=== PATIENT | female | born 1955 | race Caucasian/White ===

== ENCOUNTER 2016-10-02 16:26 | Day surgery (SDC) | payer OTHER ==
[~2016-10-02] VITALS: Ht 170.2 cm; Wt 86.3 kg
[2016-10-02] VITALS (9 sets, daily range): BP systolic 105–123; BP diastolic 58–72
[~2016-10-02 16:26] MED LIST: HEParin (CATH LAB) 2,000 ML IV ONE; HEParin 1000 UNIT/ML (10ML VIAL) FOR BOLUS ONE; LIDOCAINE 1% INJ 20 ML (XYLOCAINE) VIAL ONE; MIDAZOLAM 5 MG/5 ML (VERSED) VIAL ONE; NITROGLYCERIN DRIP 25 MG/D5W 250 ML IV ONE; NS IV 1000 ML 1,000 ML ONE; diphenhydrAMINE 50 MG/ML INJ (BENADRYL) ONE; fentaNYL INJECTION 100 MCG/2 ML AMP ONE
[2016-10-02] MEDS ORDERED: EPTIFIBATIDE BOLUS 20 ML IV ONE (16:27)
--- OUTSIDE RECORDS SUMMARY | 2016-10-02 16:30 | XMS REPORT | Continuity of Care Document ---
Author Author [facility] Organization [facility] Address Unknown Phone Unavailable Allergies Active Description Code Type Severity Reaction Onset Reported/Identified Relationship to Patient Clinical Status Yes Tylenol Drug Allergy N/A N/A 11/09/2010 Yes Tylenol Drug Allergy 11/09/2010 Yes lisinopril 5 mg tablet Drug Allergy N/A N/A 09/07/2011 Yes lisinopril 5 mg tablet Drug Allergy 09/07/2011 Yes metformin 500 mg Tablet Drug Allergy N/A N/A 03/06/2012 Yes metformin 500 mg Tablet Drug Allergy 03/06/2012 Medications Problems Date Dx Coded Attending Type Code Diagnosis Diagnosed By 11/09/2010 250.02 Diabetes Ii Uncontrolled 11/09/2010 V18.0 FAM HX DIABETES MELLITUS 11/09/2010 250.02 Diabetes Ii Uncontrolled 11/09/2010 V18.0 FAM HX DIABETES MELLITUS 11/09/2010 250.02 Diabetes Ii Uncontrolled 11/09/2010 V18.0 FAM HX DIABETES MELLITUS 11/09/2010 HAWA CORREA DO 250.02 Diabetes Ii Uncontrolled 11/09/2010 HAWA CORREA DO V18.0 FAM HX DIABETES MELLITUS 11/09/2010 HAWA CORREA DO 250.02 Diabetes Ii Uncontrolled 11/09/2010 HAWA CORREA DO V18.0 FAM HX DIABETES MELLITUS 11/09/2010 HAWA CORREA DO 250.02 Diabetes Ii Uncontrolled 11/09/2010 HAWA CORREA DO V18.0 FAM HX DIABETES MELLITUS 11/22/2010 786.52 Chest Wall Pain 11/22/2010 V68.1 ISSUE OF REPEAT PRESCRIPTIONS 11/22/2010 786.52 Chest Wall Pain 11/22/2010 V68.1 ISSUE OF REPEAT PRESCRIPTIONS 11/22/2010 786.52 Chest Wall Pain 11/22/2010 V68.1 ISSUE OF REPEAT PRESCRIPTIONS 11/22/2010 HAWA CORREA DO 786.52 Chest Wall Pain 11/22/2010 HAWA CORREA DO V68.1 ISSUE OF REPEAT PRESCRIPTIONS 11/22/2010 CORREA DO, HAWA K 786.52 Chest Wall Pain 11/22/2010 CORREA DO, HAWA K V68.1 ISSUE OF REPEAT PRESCRIPTIONS 11/22/2010 CORREA DO, HAWA K 786.52 Chest Wall Pain 11/22/2010 CORREA DO, HAWA K V68.1 ISSUE OF REPEAT PRESCRIPTIONS 12/21/2010 250.00 DIABETES MELLITUS TYPE 2 12/21/2010 250.00 DIABETES MELLITUS TYPE 2 12/21/2010 250.00 DIABETES MELLITUS TYPE 2 12/21/2010 CORREA DO, HAWA K 250.00 DIABETES MELLITUS TYPE 2 12/21/2010 CORREA DO, HAWA K 250.00 DIABETES MELLITUS TYPE 2 12/21/2010 CORREA DO, HAWA K 250.00 DIABETES MELLITUS TYPE 2 03/06/2012 272.4 DYSLIPIDEMIA 03/06/2012 586 RENAL FAILURE UNSPECIFIED 03/06/2012 599.0 Urinary Tract Infection 03/06/2012 V70.0 ROUTINE GENERAL MEDICAL EXAMINATION AT A HEALTH CARE FACILITY 03/06/2012 272.4 DYSLIPIDEMIA 03/06/2012 586 RENAL FAILURE UNSPECIFIED 03/06/2012 599.0 Urinary Tract Infection 03/06/2012 V70.0 ROUTINE GENERAL MEDICAL EXAMINATION AT A HEALTH CARE FACILITY 03/06/2012 272.4 DYSLIPIDEMIA 03/06/2012 586 RENAL FAILURE UNSPECIFIED 03/06/2012 599.0 Urinary Tract Infection 03/06/2012 V70.0 ROUTINE GENERAL MEDICAL EXAMINATION AT A HEALTH CARE FACILITY 03/06/2012 CORREA DO, HAWA K 272.4 DYSLIPIDEMIA 03/06/2012 CORREA DO, HAWA K 586 RENAL FAILURE UNSPECIFIED 03/06/2012 CORREA DO, HAWA K 599.0 Urinary Tract Infection 03/06/2012 CORREA DO, HAWA K V70.0 ROUTINE GENERAL MEDICAL EXAMINATION AT A HEALTH CARE FACILITY 03/06/2012 CORREA DO, HAWA K 272.4 DYSLIPIDEMIA 03/06/2012 CORREA DO, HAWA K 586 RENAL FAILURE UNSPECIFIED 03/06/2012 CORREA DO, HAWA K 599.0 Urinary Tract Infection 03/06/2012 CORREA DO, HAWA K V70.0 ROUTINE GENERAL MEDICAL EXAMINATION AT A HEALTH CARE FACILITY 03/06/2012 CORREA DO, HAWA K 272.4 DYSLIPIDEMIA 03/06/2012 CORREA DO, HAWA K 586 RENAL FAILURE UNSPECIFIED 03/06/2012 CORREA DO, HAWA K 599.0 Urinary Tract Infection 03/06/2012 HAWA CORREA DO V70.0 ROUTINE GENERAL MEDICAL EXAMINATION AT A HEALTH CARE FACILITY 12/03/2012 461.9 SINUSITIS ACUTE 12/03/2012 719.40 PAIN IN JOINT SITE UNSPECIFIED 12/03/2012 461.9 SINUSITIS ACUTE 12/03/2012 719.40 PAIN IN JOINT SITE UNSPECIFIED 12/03/2012 HAWA CORREA DO K 461.9 SINUSITIS ACUTE 12/03/2012 HAWA CORREA DO K 719.40 PAIN IN JOINT SITE UNSPECIFIED 12/03/2012 HAWA CORREA DO K 461.9 SINUSITIS ACUTE 12/03/2012 HAWA CORREA DO K 719.40 PAIN IN JOINT SITE UNSPECIFIED 10/02/2016 ANGI BO Ot 461.9 ACUTE SINUSITIS NOS Procedures Code [place] [address] ROUTINE VENIPUNCTURE 06/02/2012 29791 A1C (IN-HOUSE) 88905 MICRO ALBUMIN-IN HOUSE 06/02/2012 84906 CMP 06/02/2012 86318 LIPID PANEL 06/02 [id number] GFR CALC (RESULT ONLY) 06/02/2012 17579 ROUTINE VENIPUNCTURE 12/03/2012 54590 A1C (IN-HOUSE) 01014 CMP 12/03/2012 25611 LIPID PANEL 12/03 [id number] GFR CALC (RESULT ONLY) 12/03/[address] SINUS W/O CONTRAST 12/15/2012 70188 ROUTINE VENIPUNCTURE 08/04/2013 02257 MICRO ALBUMIN-IN HOUSE 08/04/2013 42116 A1C (IN-HOUSE) [id number] GFR CALC (RESULT ONLY) 08/04/2013 01081 CMP 08/04/2013 11777 LIPID PANEL 08/04 58979 MICROALBUMIN 01/2014 13444 ROUTINE VENIPUNCTURE 02/08/2014 37773 A1C (IN-HOUSE) [id number] GFR CALC (RESULT ONLY) 02/08/2014 01645 CMP 02/08/2014 42462 LIPID PANEL 02/08 Results Encounters ACCT No. Visit Date/Time Discharge Status Pt. Type Provider Facility Loc./Unit Complaint [id number] 12/19/2012 09:34:00 2012 23:59:59 CLS Outpatient LAMONTE ZAMORANO, ANGI Godinez [facility] RAD CHRONIC SINUSITIS [id number] 10/02/2016 16:26:00 ACT Outpatient JEANNETTE MOSS FACC, EMMANUEL ULLOA CCDS [facility] CATH STEMI
--- OUTSIDE RECORDS SUMMARY | 2016-10-02 16:30 | XMS REPORT | Continuity of Care Document ---
Author Author [facility] Organization [facility] Address Unknown Phone Unavailable Allergies Active [...] Procedures Code Description [place] [address] ROUTINE VENIPUNCTURE 06/02/2012 49304 A1C (IN-HOUSE) 41640 MICRO ALBUMIN-IN HOUSE 06/02/2012 78085 CMP 06/02/2012 52825 LIPID PANEL 06/02 [id number] GFR CALC (RESULT ONLY) 06/02/2012 78939 ROUTINE VENIPUNCTURE 12/03/2012 96638 A1C (IN-HOUSE) 49990 CMP 12/03/2012 57457 LIPID PANEL 12/03 [id number] GFR CALC (RESULT ONLY) 12/03/[address] SINUS W/O CONTRAST 12/15/2012 91543 ROUTINE VENIPUNCTURE 08/04/2013 45195 MICRO ALBUMIN-IN HOUSE 08/04/2013 27386 A1C (IN-HOUSE) [id number] GFR CALC (RESULT ONLY) 08/04/2013 24887 CMP 08/04/2013 32380 LIPID PANEL 08/04 71399 MICROALBUMIN 01/2014 78870 ROUTINE VENIPUNCTURE 02/08/2014 36555 A1C (IN-HOUSE) [id number] GFR CALC (RESULT ONLY) 02/08/2014 79296 CMP 02/08/2014 24630 LIPID PANEL 02/08 Results Encounters ACCT No. Visit Date/Time Discharge Status Pt. Type Provider Facility Loc./Unit Complaint [id number] 12/19/2012 09:34:00 2012 23:59:59 CLS Outpatient LAMONTE ZAMORANO, ANGI Godinez [facility] RAD CHRONIC SINUSITIS [id number] 10/02/2016 16:26:00 ACT Outpatient JEANNETTE MOSS FACC, EMMANUEL ULLOA CCDS [facility] CATH STEMI
[2016-10-02] MEDS ORDERED: NS IV 1000 ML 1,000 ML IV SCH (17:15)
[2016-10-02] MEDS ORDERED: PATIENT MAY USE OWN MEDS, ALL PO SCH (17:45)
--- NOTE | 2016-10-02 17:45 | Cardiac Procedure Note-CS/ASA ---
Pre-Procedure Note Pre-Op Procedure Note H&P Reviewed The H&P was reviewed, patient examined and no changes noted. Date H&P Reviewed: Oct 02, 2016 Time H&P Reviewed: 16:50 Conscious Sedation Pre-Proced Time Reviewed: 16:50 ASA Class: 3 Airway Mallampati Classification: (jena appropriate class) I. II. III, IV Lungs Heart ASA score ASA 1: a normal healthy patient ASA 2: a patient with a mild systemic disease (mid diabetes, controlled hypertension, obesity ASA 3: a patient with a severe systemic disease that limits activity (angina , COPD, prior Myocardial infarction) ASA 4: a patient with an incapacitating disease that is a constant threat to life (CHF, renal failure) ASA 5: a moribund patient not expected to survive 24 hrs. (ruptured aneurysm) ASA 6: a declared brain patient whose organs are being harvested. For emergent operations, add the letter E after the classification Grade 3 Sedation Plan: Analgesia, Amnesia, Plan communicated to team members, Discussed options with patient/fam, Discussed risks with patient/fam Note The patient is an appropriate candidate to undergo the planned procedure, sedation, and anesthesia. The patient immediately re-assessed prior to indication. EMMANUEL MACHADO MD FACP FAC CCDS Oct 02, 2016 17:45
[2016-10-02] MEDS ORDERED: CLOPIDOGREL 300 MG (PLAVIX) TABLET PO ONE (17:47)
[2016-10-02] MEDS: ATORVASTATIN 40 MG (LIPITOR) TABLET PO SCH (23:27)
[2016-10-02] MEDS: IBUPROFEN 600 MG (MOTRIN) TAB PO SCH (23:27)
[2016-10-02] MEDS: inSUlin (REGULAR) HUMAN 1 UNIT/0.01 ML (CHARGE PER UNIT) SC SCH (23:44)
[2016-10-03] VITALS (7 sets, daily range): BP systolic 101–117; BP diastolic 59–77
[2016-10-03 04:02] LABS: MEAN PLATELET VOLUME 11.1 FL (7.4-10.4); RED BLOOD COUNT 4.19 10^6/uL (4.35-5.85); RED CELL DISTRIBUTION WIDTH 14.1 % (10.0-14.5); WHITE BLOOD COUNT 9.7 10^3/uL (4.3-11.0)
[2016-10-03 04:21] LABS: CALCIUM 9.3 MG/DL (8.5-10.1); CREATININE SERUM 0.95 MG/DL (0.60-1.30)
[2016-10-03] MEDS: IBUPROFEN 600 MG (MOTRIN) TAB PO SCH ×3 (06:00→21:49)
[2016-10-03] MEDS: inSUlin (REGULAR) HUMAN 1 UNIT/0.01 ML (CHARGE PER UNIT) SC SCH ×4 (07:03→21:00)
[2016-10-03] MEDS: NS IV 1000 ML 1,000 ML IV SCH ×4 (07:04→23:45)
[2016-10-03] MEDS ORDERED: FLU TRIvalent (5 YOA+) 2016-17 (AFLURIA) 0.5 ML IM ONE (07:15)
[2016-10-03] MEDS ORDERED: OMG1KC PO ×2 (08:16)
[2016-10-03] MEDS ORDERED: MULT-35 PO ×2 (08:16)
--- NOTE | 2016-10-03 08:37 | Progress Note-Cardiology ---
Cardiology SOAP Progress Note Subjective: Denies cp or palp or syncope Objective: I&O/Vital Signs Vital Sign - Last 12Hours 10/02/16 10/02/16 10/02/16 10/03/16 21:00 22:00 23:00 00:00 Pulse 63 62 61 60 Resp 21 8 13 21 B/P 119/67 108/66 105/58 108/59 Pulse Ox 90 92 O2 Delivery Room Air Room Air Room Air Room Air 10/03/16 10/03/16 10/03/16 10/03/16 01:00 01:00 04:00 08:01 Temp 97.1 98.4 Pulse 60 60 59 58 Resp 20 18 16 B/P 117/69 110/69 109/65 Pulse Ox 96 94 O2 Delivery Room Air Room Air Room Air Weight (Pounds): 185 Weight (Ounces): 8.0 Weight (Calculated Kilograms): 84.728518 Groin site without hematoma: Yes Bruising: mild bruising Constitutional: AAO x 3 well-developed well-nourished Respiratory: No accessory muscle use, other (fair bilateral air entry) Cardiovascular: regular rate-rhythm S1 and S2 systolic murmur (faint RJ at card base) Gastrointestional: No tender, softNo guarding, No rebound, audible bowel sounds Extremities: No clubbing, No cyanosis, No significant edema Neurologic/Psychiatric: oriented x 3 grossly intact power is 5/5 both on sides Skin: No rash on exposed areas, No ulcerations on exposed areas Results/Procedures: Labs Laboratory Tests 10/03/16 03:20: Anion Gap 10, BUN/Creatinine Ratio 16, Blood Urea Nitrogen 15, Calcium Level 9.3 , Carbon Dioxide Level 20L, Chloride Level 109H, Creatinine 0.95, Estimat Glomerular Filtration Rate 60, Glucose Level 102, Hematocrit 38, Hemoglobin 12.6 , Mean Corpuscular Hemoglobin 30, Mean Corpuscular Hemoglobin Concent 33, Mean Corpuscular Volume 91, Mean Platelet Volume 11.1H, Platelet Count 172, Potassium Level 4.0, Red Blood Count 4.19L, Red Cell Distribution Width 14.1, Sodium Level 139, White Blood Count 9.7 Laboratory Tests 10/03/16 03:20 A/P: Assessment: * Ac inf wall STEMI on 10/02/16, treated with RCA stenting (Alpine Xience 3.0 x 20 proximally and 3.0 x 28 in the mid vessel, nonoverlapping); L cors had mod diffuse disease (60% mid LAD and 80% relatively small caliber OM 1), LVEDP was moderately elevated; LVEF was 40% * Ischemic cm (see above) * NSVT shortly post revascularization * Borderline DM II * Chronic tobacco use, from which she has been advised to refrain Plan: * Treat with aspirin, Plavix, statin, beta-gilma and TU-inhib * Med consult for eval for DMII * I again advised her to quit smoking immediately and completely * Echo to getter better eval of LVEF and wall motion * I spent a lot of time with her emphasizing the importance of medication compliance, in particular antiplatelet therapy (aspirin and clopidogrel) post cor stents. She understands and states she will comply * Keep on tele * Have advised her to increase ambulation * Repeat labs in EMMANUEL Urena MD FACP FAC CCDS Oct 03, 2016 08:37
[2016-10-03] MEDS: CLOPIDOGREL 75 MG (PLAVIX) TABLET PO SCH (08:54)
[2016-10-03] MEDS: ASPIRIN E.C. 81 MG (ECOTRIN) TAB PO SCH (08:55)
[2016-10-03] MEDS: lisINopril 5 MG (PRINIVIL) TABLET PO SCH (08:55)
[2016-10-03] MEDS: MAGNESIUM 1 GM/100 ML IVPB 100 ML IV SCH ×2 (09:45→10:48)
--- NOTE | 2016-10-03 12:06 | Consultation-Hospitalist ---
HPI History of Present Illness: HPI/Chief Complaint CC: Chest pain HPI: This is a 61yoWF pt of [facility] last seen in 2011 with hx of H/O, DM but stopped medication since sugar was doing well, that presented to ER with chest pain. 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 Pt currently takes no meds for DM. Pt started on beta blockers. Pt has cough with green sputum. Patient Interview: Pt does not have a PCP. Pt states that she does not take any medication. Dr. Babb discusses establishing pt with PCP or [facility]. Pt previously went to [facility] but hasnt for the past [address] Babb discusses DM with pt. Pt previously took DM medicine, but stopped because she felt that her sugar levels were stabilized. Physical exam stable. Pt smokes, but denies drinking ETOH. Pt works at [employer] in [place], and has done so for the past 4 years. Scribed by Eitan Schmid under the direct supervision of Dr. Babb. Source: patient Date Seen 10/03/16 Attending Physician Kwame Mathew MD Facp Fac Ccds PCP No,Local Physician Referring Physician Date of Admission Home Medications & Allergies Home Medications Reviewed patient Home Medication Reconciliation Form Allergies Coded Allergies: acetaminophen (Unverified Allergy, Unknown, 10/02/16) Past Cizluhw-Vnodeu-Hzrtrr Hx Patient Social History Marrital Status: single Employed/Student: employed ([employer] in [place]) Alcohol Use: Denies Use Recreational Drug Use: No Smoking Status: Current Everyday Smoker Type Used: Cigarettes Physical Abuse Screen: No Sexual Abuse: No Recent Foreign Travel: No Contact w/other who traveled: No Recent Hopitalizations: No Recent Infectious Disease Expo: No Seasonal Allergies Seasonal Allergies: No Surgeries HX Surgeries: No Respiratory Hx Respiratory Disorders: No Cardiovascular Hx Cardiovascular Disorders: Yes Cardiac Disorders: High Cholesterol, Hypertension Neurological Hx Neurological Disorders: No Reproductive System Sexually Transmitted Disease: No HIV/AIDS: No Gastrointestinal Hx Gastrointestinal Disorders: No Musculoskeletal Hx Musculoskeletal Disorders: No Endocrine Hx Endocrine Disorders: Yes Hx Endocrine Disorders: No Endocrine Disorders: Diabetes, Non-Insulin dep HEENT Loss of Vision: Right Hearing Impairment: Hard of Hearing Blood Transfusions Adverse Reaction to a Blood Tr: No Family Medical History Family Hx: Alzheimer's disease 19 FATHER Breast malignancy G8 SISTER COPD (chronic obstructive pulmonary disease) G8 BROTHER Cardiomegaly 19 MOTHER, Onset:46 Cardiovascular disease G8 BROTHER G8 SISTER Diabetes mellitus 19 MOTHER Hypertension 19 MOTHER Myocardial infarction G8 BROTHER ( age 46 ) G8 BROTHER Prostate cancer 19 FATHER Uterine cancer Review of Systems Constitutional: see HPI EENTM: no symptoms reported Respiratory: short of breath Cardiovascular: chest pain Gastrointestinal: no symptoms reported Genitourinary: no symptoms reported Musculoskeletal: no symptoms reported Skin: no symptoms reported Psychiatric/Neurological: No Symptoms Reported All Other Systems Reviewed Negative Unless Noted: Yes Physical Exam Physical Exam Vital Signs Vital Sign - Last 12Hours 10/02/16 10/02/16 10/03/16 18:00 18:15 04:00 Temp 97.1 Pulse 73 Resp 14 B/P 113/65 Pulse Ox 94 O2 Delivery Room Air Capillary Refill : Less Than 3 Seconds General Appearance: No Apparent Distress WD/WN Chronically ill Eyes: Bilateral Eye Normal Inspection, Bilateral Eye PERRL HEENT: PERRL/EOMI Normal ENT Inspection Pharynx Normal Neck: Full Range of Motion Normal Inspection Non Tender Supple Carotid Bruit Respiratory: Chest Non Tender Lungs Clear Normal Breath Sounds No Accessory Muscle Use No Respiratory Distress Cardiovascular: Regular Rate, Rhythm No Edema No Gallop No JVD No Murmur Normal Peripheral Pulses Gastrointestinal: Normal Bowel Sounds No Organomegaly No Pulsatile Mass Non Tender Soft Back: Normal Inspection No CVA Tenderness No Vertebral Tenderness Extremity: Normal Capillary Refill Normal Inspection Normal Range of Motion Non Tender No Calf Tenderness No Pedal Edema Neurologic/Psychiatric: Alert Oriented x3 No Motor/Sensory Deficits Normal Mood/Affect Skin: Normal Color Warm/Dry Lymphatic: No Adenopathy Results Results/Procedures Lab Laboratory Tests 10/03/16 03:20 Assessment/Plan Admission Diagnosis Assessment: Acute inferior wall STEMI RCA stented x2 EF noted at 40% Non-sustained ventricular tachycardia H/O DM non-compliant with meds Assessment and Plan Plan: SW consult Monitor closely due to cardiac status Re-establish with [facility]. Clinical Quality Measures DVT/VTE Risk/Contraindication: Risk Factor Score Per Nursin RFS Level Per Nursing on Admit: 4+=Very High ISMAEL BABB DO Oct 03, 2016 12:06
[2016-10-03] MEDS: ATORVASTATIN 40 MG (LIPITOR) TABLET PO SCH (21:49)
[2016-10-04 00:06] VITALS: BP 94/50
[2016-10-04 04:00] VITALS: BP 104/61
[2016-10-04] MEDS: IBUPROFEN 600 MG (MOTRIN) TAB PO SCH (05:18)
[2016-10-04 05:47] LABS: BASOPHILS % (AUTO) 0 % (0-10); EOSINOPHILS # (AUTO) 0.2 10^3/uL (0.0-0.3); EOSINOPHILS % (AUTO) 2 % (0-10); LYMPHOCYTES # (AUTO) 2.4 X 10^3 (1.0-4.0); LYMPHOCYTES % (AUTO) 26 % (12-44); MEAN CORPUSCULAR HEMOGLOBIN 31 PG (25-34); MEAN CORPUSCULAR HGB CONC 33 G/DL (32-36); MEAN CORPUSCULAR VOLUME 91 FL (80-99); MEAN PLATELET VOLUME 10.7 FL (7.4-10.4); MONOCYTES # (AUTO) 0.5 X 10^3 (0.0-1.0); MONOCYTES % (AUTO) 6 % (0-12); NEUTROPHILS # (AUTO) 6.1 X 10^3 (1.8-7.8); NEUTROPHILS % (AUTO) 67 % (42-75); PLATELET COUNT 154 10^3/uL (130-400); RED BLOOD COUNT 4.26 10^6/uL (4.35-5.85); RED CELL DISTRIBUTION WIDTH 14.4 % (10.0-14.5); WHITE BLOOD COUNT 9.2 10^3/uL (4.3-11.0)
[2016-10-04] MEDS: inSUlin (REGULAR) HUMAN 1 UNIT/0.01 ML (CHARGE PER UNIT) SC SCH ×2 (06:00→11:00)
[2016-10-04 06:10] LABS: ALBUMIN 3.8 G/DL (3.2-4.5); BILIRUBIN,TOTAL 0.4 MG/DL (0.1-1.0); CALCIUM 9.3 MG/DL (8.5-10.1); CREATININE SERUM 1.01 MG/DL (0.60-1.30); MAGNESIUM 2.3 MG/DL (1.8-2.4); POTASSIUM 4.2 MMOL/L (3.6-5.0); TOTAL PROTEIN 6.5 G/DL (6.4-8.2)
[2016-10-04] MEDS: CLOPIDOGREL 75 MG (PLAVIX) TABLET PO SCH (08:51)
[2016-10-04] MEDS: lisINopril 5 MG (PRINIVIL) TABLET PO SCH (08:51)
[2016-10-04] MEDS: ASPIRIN E.C. 81 MG (ECOTRIN) TAB PO SCH (08:51)
[2016-10-04 08:52] VITALS: BP 108/64
--- NOTE | 2016-10-04 10:19 | Progress Note-Cardiology ---
Cardiology SOAP Progress Note Subjective: Sitting up on the side of the bed. No c/o CP, palpitations, syncope, near syncope or LE edema. Objective: I&O/Vital Signs Vital Sign - Last 12Hours 10/04/16 10/04/16 10/04/16 10/04/16 00:06 01:00 04:00 06:52 Temp 98.7 98.1 Pulse 58 54 61 56 Resp 16 16 B/P 94/50 104/61 Pulse Ox 95 94 O2 Delivery Room Air Room Air 10/04/16 08:52 Temp 97.5 Pulse 62 Resp 16 B/P 108/64 Pulse Ox 97 O2 Delivery Room Air Intake and Output 10/04/16 00:00 Intake Total 2700 ml Balance 2700 ml Weight (Pounds): 190 Weight (Ounces): 4.0 Weight (Calculated Kilograms): 86.441709 Side: right Groin site without hematoma: Yes Condition: DP/PT pulses palpable, extremity w/d/p Bruising: mild bruising Constitutional: AAO x 3 well-developed well-nourished Respiratory: No accessory muscle use, lungs clear to auscultation other ( prolonged expiratory phase) Cardiovascular: regular rate-rhythm S1 and S2 systolic murmur (faint RJ at card base) Gastrointestional: No tender, softNo guarding, No rebound, audible bowel sounds Extremities: No clubbing, No cyanosis, No significant edema Neurologic/Psychiatric: oriented x 3 grossly intact power is 5/5 both on sides Skin: No rash on exposed areas, No ulcerations on exposed areas Results/Procedures: Labs Laboratory Tests 10/03/16 10:49: Glucometer 119H 10/03/16 16:12: Glucometer 91 10/03/16 21:48: Glucometer 94 10/04/16 05:24: Alanine Aminotransferase (ALT/SGPT) 56H, Albumin 3.8, Alkaline Phosphatase 131, Anion Gap 9, Aspartate Amino Transf (AST/SGOT) 69H, BUN/Creatinine Ratio 19, Basophils # (Auto) 0.0, Basophils (%) (Auto) 0, Blood Urea Nitrogen 19H, Calcium Level 9.3, Carbon Dioxide Level 21, Chloride Level 110H, Cholesterol Level 193, Creatinine 1.01, Eosinophils # (Auto) 0.2, Eosinophils (%) (Auto) 2, Estimat Glomerular Filtration Rate 56, Glucose Level 96, HDL Cholesterol 43, Hematocrit 39, Hemoglobin 13.0, LDL Cholesterol Direct 131H, Lymphocytes # (Auto ) 2.4, Lymphocytes (%) (Auto) 26, Magnesium Level 2.3, Mean Corpuscular Hemoglobin 31, Mean Corpuscular Hemoglobin Concent 33, Mean Corpuscular Volume 91, Mean Platelet Volume 10.7H, Monocytes # (Auto) 0.5, Monocytes (%) (Auto) 6, Neutrophils # (Auto) 6.1, Neutrophils (%) (Auto) 67, Platelet Count 154, Potassium Level 4.2, Red Blood Count 4.26L, Red Cell Distribution Width 14.4, Sodium Level 140, Total Bilirubin 0.4, Total Protein 6.5, Triglycerides Level 136, VLDL Cholesterol 27, White Blood Count 9.2 A/P: Assessment: * Ac inf wall STEMI on 10/02/16, treated with RCA stenting (Alpine Xience 3.0 x 20 proximally and 3.0 x 28 in the mid vessel, nonoverlapping); L cors had mod diffuse disease (60% mid LAD and 80% relatively small caliber OM 1), LVEDP was moderately elevated; LVEF was 40% * Ischemic cm (see above) * NSVT shortly post revascularization, no recurrence for more than 24 hrs * Borderline DM II * Chronic tobacco use, from which she has been advised to refrain Plan: * Continue aspirin, Plavix, statin, beta-gilma and TU-inhib * Med consult for eval for DMII - we would like to thank Dr. Babb for her assistance * I again advised her to quit smoking immediately and completely * Again discussed the importance of medication compliance, in particular antiplatelet therapy (aspirin and clopidogrel) post cor stents. She understands and states she will comply * OK to discharge home with out pt f/u next week at our office * Discussed with Dr. Babb Physician Assessment Physician Assessment Lungs: clear Cor: reg A&R * As documented in our note above * She wishes to have echo done as outpatient. Currently feels well and wishes to go home * I have again reviewed with the importance of med compliance and answered her questions * I have gone over her CV findings and the rationale of meds and have advised close outpatient f/u for now * I have advised immediate and complete smoking cessation FORREST [employer] [place] [employer] PROFESS[employer] Oct 04, 2016 10:19 EMMANUEL MACHADO MD FACP FAC CCDS Oct 04, 2016 10:40
[2016-10-04] MEDS ORDERED: ASPI-983 PO ×2 (10:23)
[2016-10-04] MEDS ORDERED: METO-270 PO ×2 (10:23)
[2016-10-04] MEDS ORDERED: LISI-556 PO ×2 (10:23)
[2016-10-04] MEDS ORDERED: CLOP75TA28 PO ×2 (10:23)
[2016-10-04] MEDS ORDERED: ATOR40TA PO ×2 (10:23)
--- NOTE | 2016-10-04 10:28 | Discharge Inst-Cardiology ---
Discharge Inst-Cardiac Discharge Medications New Medications: Aspirin (Aspirin EC) 81 Mg Tablet.dr 81 MG PO DAILY #90 Ref 5 TAB Atorvastatin Calcium (Lipitor) 40 Mg Tablet 40 MG PO HS #30 Ref 5 TAB Clopidogrel Bisulfate (Clopidogrel) 75 Mg Tablet 75 MG PO DAILY #90 Ref 3 TAB Lisinopril (Lisinopril) 5 Mg Tablet 2.5 MG PO DAILY #30 Ref 5 TAB Metoprolol Succinate (Metoprolol Succinate) 25 Mg Tab.er.24h 12.5 MG PO DAILY #30 Ref 5 TAB Continued Medications: Multivitamin (Daily Multiple Vitamin) 1 Each Tablet 1 TAB PO DAILY TAB [place] 3 Polyunsat Fatty Acids (Fish Oil 1,000 mg Capsule) 1,000 Mg Cap 2000 MG PO DAILY TAKES 2 (1000MG) CAPSULES CAP New, Converted or Re-Newed RX: Transmitted to Pharmacy Patient Instructions Patient Instructions: Echocardiogram next week as an outpatient Follow up appt next week with FORREST [place] Oct 04, 2016 10:28
--- NOTE | 2016-10-04 10:47 | Cardiology Discharge Summary ---
Diagnosis/Chief Complaint Date of Admission 10/02/16 Date of Discharge 10/04/16 Final/Discharge Diagnosis * Ac inf wall STEMI on 10/02/16, treated with RCA stenting (Alpine Xience 3.0 x 20 proximally and 3.0 x 28 in the mid vessel, nonoverlapping); L cors had mod diffuse disease (60% mid LAD and 80% relatively small caliber OM 1), LVEDP was moderately elevated; LVEF was 40% * Ischemic cm (see above) * NSVT shortly post revascularization (within 24 hours) without any subsequent recurrence * Borderline DM II for which she will follow with her pcp * Chronic tobacco use, from which she has been advised to refrain Chief Complaint/HPI Chief Complaint/HPI Please refer to my history and physical for details of admission Please refer to my progress note of today (10/04/16) for condition at discharge She is currently clinically stable and wishes to go home Lungs: clear Cor: reg I have again reviewed with the importance of med compliance and answered her questions I have gone over her CV findings and the rationale of meds and have advised close outpatient f/u for now I have advised immediate and complete smoking cessation Time spent in interview, exam, answering questions, explaining meds, providing discharge instructions, calling in meds, writing notes: 10:15 am to 10:47 am Discharge Summary Procedures Card cath and cor intervention on 10/02/16 Hospital Course Pending Labs Laboratory Tests 10/04/16 05:24: Alanine Aminotransferase (ALT/SGPT) 56, Albumin 3.8, Alkaline Phosphatase 131, Anion Gap 9, Aspartate Amino Transf (AST/SGOT) 69, BUN/Creatinine Ratio 19, Basophils # (Auto) 0.0, Basophils (%) (Auto) 0, Blood Urea Nitrogen 19, Calcium Level 9.3, Carbon Dioxide Level 21, Chloride Level 110, Cholesterol Level 193, Creatinine 1.01, Eosinophils # (Auto) 0.2, Eosinophils (%) (Auto) 2, Estimat Glomerular Filtration Rate 56, Glucose Level 96, HDL Cholesterol 43, Hematocrit 39, Hemoglobin 13.0, LDL Cholesterol Direct 131, Lymphocytes # (Auto) 2.4, Lymphocytes (%) (Auto) 26, Magnesium Level 2.3, Mean Corpuscular Hemoglobin 31, Mean Corpuscular Hemoglobin Concent 33, Mean Corpuscular Volume 91, Mean Platelet Volume 10.7, Monocytes # (Auto) 0.5, Monocytes (%) (Auto) 6, Neutrophils # (Auto) 6.1, Neutrophils (%) (Auto) 67, Platelet Count 154, Potassium Level 4.2, Red Blood Count 4.26, Red Cell Distribution Width 14.4, Sodium Level 140, Total Bilirubin 0.4, Total Protein 6.5, Triglycerides Level 136, VLDL Cholesterol 27, White Blood Count 9.2 Discussion & Recommendations Follow up appt.: Follow up with Dr Mathew nex week No smoking Dicharge Diet: Cardiac Diet Home Medications Reviewed patient Home Medication Reconciliation Form Discharge Home Medications: Reviewed and agree with Discharge Medication list on patient's Discharge Instruction sheet Clinical Quality Measures DVT/VTE Risk/Contraindication: Risk Factor Score Per Nursin RFS Level Per Nursing on Admit: 4+=Very High EMMANUEL MATHEW MD FACP FAC CCDS Oct 04, 2016 10:47
--- NOTE | 2016-10-04 10:59 | Discharge Summary-Hospitalist ---
Diagnosis/Chief Complaint Date of Admission Date of Discharge Discharge Date: Oct 04, 2016 Admission Diagnosis Assessment: Acute inferior wall STEMI RCA stented x2 EF noted at 40% Non-sustained ventricular tachycardia H/O DM non-compliant with meds Discharge Diagnosis Assessment: Acute inferior wall STEMI RCA stented x2 EF noted at 40% Non-sustained ventricular tachycardia H/O DM non-compliant with meds Smoker Plan: SW consult Monitor closely due to cardiac status Re-establish with [facility]. Reason Hospital Visit/Course CC: Chest pain HPI: This is a 61yoWF pt of [facility] last seen in 2011 with hx of H/O, DM but stopped medication since sugar was doing well, that presented to ER with chest pain. She was found to have acute inferior wall STEMI was taken to medical laboratory technicians, RCA was stented x2 and EF noted at 40%. She did have non-sustained ventricular tachycardia post stent placement so she will be monitored closely today and DCd home. classification clerk: Pt came from [place] yesterday and had stents placed. Pt currently takes no meds for DM. Pt started on beta blockers. Pt has cough with green sputum. Patient Interview: Pt does not have a PCP. Pt states that she does not take any medication. Dr. Babb discusses establishing pt with PCP or [facility]. Pt previously went to [facility] but hasnt for the past [address] Babb discusses DM with pt. Pt previously took DM medicine, but stopped because she felt that her sugar levels were stabilized. Physical exam stable. Pt smokes, but denies drinking ETOH. Pt works at [employer] in [place], and has done so for the past 4 years. Scribed by Eitan Schmid under the direct supervision of Dr. Babb. Notes from 10/04/2016: Chart Review: No fever Vitals stable WBC 9.2 Glucose normal classification clerk: Pt wants to go home, and has fluids on SEP currently. Patient Interview: Pt states that she wishes to go home, and feels stable. Pt has been ambulating. Pt spoke with SW regarding finances for medication. Dr. Babb encourages pt to quit smoking. Pt uses [facility]. Pt states that she is supposed to work tomorrow. no fever, vital signs stable, pleasant, improved Regular rate and rhythm, clear to auscultation bilaterally No edema Plan: Heplock IVF Follow-up with [facility] 10/11/[address] Luis MCKOY assistance with finances for medication Scribed by Eitan Schmid under the direct supervision of Dr. Babb. Discharge Summary Discharge Physical Examination Allergies: Coded Allergies: acetaminophen (Unverified Allergy, Unknown, 10/02/16) Vitals & I&Os Vital Signs Date Time Temp Pulse Resp B/P Pulse Ox O2 Delivery O2 Flow Rate FiO2 10/04/16 08:52 97.5 62 16 108/64 97 Room Air Hospital Course Labs (last 24 hrs) Laboratory Tests 10/03/16 16:12: Glucometer 91 10/03/16 21:48: Glucometer 94 10/04/16 05:24: Alanine Aminotransferase (ALT/SGPT) 56H, Albumin 3.8, Alkaline Phosphatase 131, Anion Gap 9, Aspartate Amino Transf (AST/SGOT) 69H, BUN/Creatinine Ratio 19, Basophils # (Auto) 0.0, Basophils (%) (Auto) 0, Blood Urea Nitrogen 19H, Calcium Level 9.3, Carbon Dioxide Level 21, Chloride Level 110H, Cholesterol Level 193, Creatinine 1.01, Eosinophils # (Auto) 0.2, Eosinophils (%) (Auto) 2, Estimat Glomerular Filtration Rate 56, Glucose Level 96, HDL Cholesterol 43, Hematocrit 39, Hemoglobin 13.0, LDL Cholesterol Direct 131H, Lymphocytes # (Auto ) 2.4, Lymphocytes (%) (Auto) 26, Magnesium Level 2.3, Mean Corpuscular Hemoglobin 31, Mean Corpuscular Hemoglobin Concent 33, Mean Corpuscular Volume 91, Mean Platelet Volume 10.7H, Monocytes # (Auto) 0.5, Monocytes (%) (Auto) 6, Neutrophils # (Auto) 6.1, Neutrophils (%) (Auto) 67, Platelet Count 154, Potassium Level 4.2, Red Blood Count 4.26L, Red Cell Distribution Width 14.4, Sodium Level 140, Total Bilirubin 0.4, Total Protein 6.5, Triglycerides Level 136, VLDL Cholesterol 27, White Blood Count 9.2 10/04/16 10:51: Glucometer 183H Pending Labs Laboratory Tests 10/04/16 05:24: Alanine Aminotransferase (ALT/SGPT) 56, Albumin 3.8, Alkaline Phosphatase 131, Anion Gap 9, Aspartate Amino Transf (AST/SGOT) 69, BUN/Creatinine Ratio 19, Basophils # (Auto) 0.0, Basophils (%) (Auto) 0, Blood Urea Nitrogen 19, Calcium Level 9.3, Carbon Dioxide Level 21, Chloride Level 110, Cholesterol Level 193, Creatinine 1.01, Eosinophils # (Auto) 0.2, Eosinophils (%) (Auto) 2, Estimat Glomerular Filtration Rate 56, Glucose Level 96, HDL Cholesterol 43, Hematocrit 39, Hemoglobin 13.0, LDL Cholesterol Direct 131, Lymphocytes # (Auto) 2.4, Lymphocytes (%) (Auto) 26, Magnesium Level 2.3, Mean Corpuscular Hemoglobin 31, Mean Corpuscular Hemoglobin Concent 33, Mean Corpuscular Volume 91, Mean Platelet Volume 10.7, Monocytes # (Auto) 0.5, Monocytes (%) (Auto) 6, Neutrophils # (Auto) 6.1, Neutrophils (%) (Auto) 67, Platelet Count 154, Potassium Level 4.2, Red Blood Count 4.26, Red Cell Distribution Width 14.4, Sodium Level 140, Total Bilirubin 0.4, Total Protein 6.5, Triglycerides Level 136, VLDL Cholesterol 27, White Blood Count 9.2 10/04/16 10:51: Glucometer 183 Discharge Home Medications: Active Scripts Active Aspirin EC (Aspirin) 81 Mg Tablet.dr 81 Mg PO DAILY Lisinopril 5 Mg Tablet 2.5 Mg PO DAILY Metoprolol Succinate 25 Mg Tab.er.24h 12.5 Mg PO DAILY Lipitor (Atorvastatin Calcium) 40 Mg Tablet 40 Mg PO HS Clopidogrel (Clopidogrel Bisulfate) 75 Mg Tablet 75 Mg PO DAILY Reported Fish Oil 1,000 mg Capsule ([place] 3 Polyunsat Fatty Acids) 1,000 Mg Cap 2,000 Mg PO DAILY TAKES 2 (1000MG) CAPSULES Daily Multiple Vitamin (Multivitamin) 1 Each Tablet 1 Tab PO DAILY Instructions to patient/family Please see electonic discharge instructions given to patient. Clinical Quality Measures DVT/VTE Risk/Contraindication: Risk Factor Score Per Nursin RFS Level Per Nursing on Admit: 4+=Very High ISMAEL BABB DO Oct 04, 2016 10:59
[2016-10-04 12:47] VITALS: BP 95/57
--- NOTE | 2016-10-24 13:18 | CARDIAC CATHETERIZATION ---
PROCEDURE PHYSICIAN: EMMANUEL MACHADO CARDIAC CATHETERIZATION AND CORONARY INTERVENTION REPORT: DATE OF PROCEDURE: 10/02/2016 Ximena William is a 61-year-old lady who presented with acute inferior wall ST elevation myocardial infarction. Urgent cardiac catheterization and coronary intervention was carried out after having obtained an informed consent. PROCEDURE: She was brought to the cardiac catheterization laboratory. The right groin was prepared and draped in usual sterile fashion. 1% lidocaine was used for local anesthesia. Modified Seldinger technique was used to advance a 6-Armenian sheath in the right femoral artery. A 6-Armenian JL4 catheter was used for left coronary angiography. A 6-Armenian JR4 guide catheter was used for angiography of the right coronary artery. PERCUTANEOUS INTERVENTION TO THE RIGHT CORONARY ARTERY: Following completion of the diagnostic procedure, we carried out percutaneous intervention to the right coronary artery which was exhibiting 99% stenosis in its mid distal portion with RAY 0 to 1 distal flow. We advanced a ChoICE floppy wire across the lesion and the tip was placed in distal vessel. We first carried out balloon angioplasty which reduced the 99% stenosis to approximately 70% stenosis. We then proceeded with stenting of the lesion with Alpine Xience 3.0 x 28 mm stent, which reduced the stenosis from initially 99% to 0% residual following deployment of the stent. Subsequently, we proceeded with the stenting of the proximal right coronary artery which was exhibiting 70 to 80% stenosis. We used another Alpine Xience 3.0 x 20 mm stent and this was carefully positioned to cover the entire lesion without overlapping the distal stent. Following stent deployment, there was 0% residual stenosis at the site of 70 to 80% stenosis in the proximal right coronary artery. She tolerated the procedure well. Angioplasty equipment was removed. We then proceeded with left heart catheterization and left ventricular angiography with a 6-Armenian pigtail catheter. The pigtail catheter was then pulled back and removed. Angiography of the right femoral artery was carried out through the sheath. Mynx was used to achieve hemostasis. LEFT VENTRICULAR ANGIOGRAPHY: Left ventricular angiography showed posterobasal severe hypokinesis and diaphragmatic moderate hypokinesis. Left ventricular ejection fraction was approximately 40%. There did not appear to be significant mitral regurgitation. CORONARY ANGIOGRAPHY: The left main coronary artery did not exhibit significant disease. The left anterior descending artery has diffuse, moderate disease including 60% stenosis in the midportion that involved the first diagonal branch, as well. The left circumflex artery had diffuse, moderate disease. There was 80% stenosis of a relatively small caliber first obtuse marginal branch. The right coronary artery was the culprit artery and had 99% stenosis in its mid to distal portion to which successful stenting was carried out utilizing overlapping nonoverlapping Alpine Xience stents; the distal stent 3 x 28 mm and the proximal stent 3.0 x 20 mm. CONCLUSIONS: 1. Acute inferior wall myocardial infarction treated with primary angioplasty and stenting of a 99% stenosis in the mid to distal right coronary artery with nonoverlapping Alpine Xience 3.0 x 20 mm stent proximally and 3.0 x 28 mm stent in the mid vessel. The left main coronary does not exhibit significant obstructive disease. The left anterior descending artery has diffuse, moderate disease including 50% mid vessel stenosis that involves the ostia and proximal portion of the first diagonal branch. The left circumflex artery has diffuse, moderate disease and has 80% stenosis in a relatively small caliber first obtuse marginal branch. 2. Elevated left ventricular end diastolic pressure. 3. Ischemic cardiomyopathy with posterobasal and diaphragmatic hypokinesis and left ventricular ejection fraction of 40%. 4. No significant mitral regurgitation. Job ID: [id number] Dictated Date: 10/23/2016 18:15:56 Meat Washer Date: 10/24/2016 13:04:14 / florentino
== END 2016-10-04 13:20 | disposition home or self-care (01) ==
LOC: CATH 16:26 → ICU 20:37 → 4TH 10-04 02:00 → CATH 10-04 13:20
PROVIDERS: ATTEND Internal Medicine Cardiovascular Disease
DX: I21.19 ST elevation (STEMI) myocardial infarction involving other coronary artery of inferior wall (principal); I25.10 Atherosclerotic heart disease of native coronary artery without angina pectoris; I25.5 Ischemic cardiomyopathy; I47.2 Ventricular tachycardia; E11.9 Type 2 diabetes mellitus without complications; Z91.19 Patient's noncompliance with other medical treatment and regimen; Z72.0 Tobacco use
CPT/HCPCS: 36415; 80048; 80053; 80061; 82962; 83735; 85025; 85027; 93005; 93458

== ENCOUNTER → 2016-10-08 | Outpatient (CLI) | payer OTHER ==
[~2016-10-08] MED LIST changes: +ASPI-983 PO; +ATOR40TA PO; +CLOP75TA28 PO; -HEParin (CATH LAB) 2,000 ML IV ONE; -HEParin 1000 UNIT/ML (10ML VIAL) FOR BOLUS ONE; -LIDOCAINE 1% INJ 20 ML (XYLOCAINE) VIAL ONE; +LISI-556 PO; +METO-270 PO; -MIDAZOLAM 5 MG/5 ML (VERSED) VIAL ONE; +MULT-35 PO; -NITROGLYCERIN DRIP 25 MG/D5W 250 ML IV ONE; -NS IV 1000 ML 1,000 ML ONE; +OMG1KC PO; -diphenhydrAMINE 50 MG/ML INJ (BENADRYL) ONE; -fentaNYL INJECTION 100 MCG/2 ML AMP ONE
--- OUTSIDE RECORDS SUMMARY | 2016-10-08 13:35 | XMS REPORT | Continuity of Care Document ---
Author Author [facility] Organization [facility] Address Unknown Phone Unavailable Care Team Providers Care Perforator Name Role Phone NO, LOCAL PHYSICIAN PCP Unavailable Insurance Providers Payer Name Policy Number Subscriber Name Relationship Unknown Ximena Dye 18 Self / Same As Patient Problems Active Problems Medical Problem Onset Date Status Acute ST elevation myocardial infarction (STEMI) involving right coronary artery Unknown Acute Medications Current Home Medications Medication Dose Units Route Directions Days/Qty Instructions Start Date Multivitamin 1 Each 1 Tab Oral Daily 10/03/16 [place] 3 Polyunsat Fatty Acids 1,000 Mg 2,000 Mg Oral Daily TAKES 2 ( 1000MG) CAPSULES 10/03/16 Clopidogrel Bisulfate 75 Mg 75 Mg Oral Daily 90 10/04/16 Atorvastatin Calcium 40 Mg 40 Mg Oral Bedtime 30 10/04/16 Metoprolol Succinate 25 Mg 12.5 Mg Oral Daily 30 10/04/16 Lisinopril 5 Mg 2.5 Mg Oral Daily 30 10/04/16 Aspirin 81 Mg 81 Mg Oral Daily 90 10/04/16 Social History Social History Problem Response Recorded Date/Time Alcohol Use Denies Use 10/03/2016 6:28am Recreational Drug Use No 10/03/2016 6:28am Recent Foreign Travel No 10/03/2016 6:41am Recent Infectious Disease Exposure No 10/03/2016 6:41am Sexually Transmitted Disease No 10/03/2016 6:28am HIV/AIDS No 10/03/2016 6:28am Smoking Status Current Everyday Smoker 10/03/2016 6:34am Type Used Cigarettes 10/04/2016 1:31pm Recent Hopitalizations No 10/03/2016 6:28am Sexually Transmitted Disease No 10/03/2016 6:28am Query Response Start Date Stop Date Smoking Status Current Everyday Smoker Hospital Discharge Instructions Patient Instructions Physician Instructions New, Converted or Re-Newed RX: Transmitted to Pharmacy Patient Instructions: Echocardiogram next week as an outpatient Follow up appt next week with Dr. Mathew Care Plan Patient Instructions:: Echocardiogram next week as an outpatientFollow up appt next week with Dr. Mathew Plan of Care Discharge Date 10/04/16 1:20pm Instructions/Education Provided CARDIAC CATH DISCHARGE INSTRUC Prescriptions See Medication Section Functional Status Query Response Date Recorded Patient Orientation Person Place Time Situation Normal For Age October 04, 2016 1:31pm Comprehension Ability Understands Concepts October 04, 2016 8:00am Allergies, Adverse Reactions, Alerts Allergen Type Severity Reaction Status Last Updated Acetaminophen Allergy Unknown Active 10/02/16 Immunizations Name Given Type FLU TRIvalent 5 years - Adult 10/03/16 Administered Vital Signs Acute Vital Signs Vital Response Date/Time Temperature (Fahrenheit) 98.0 degrees F (97.6 - 99.5) 10/04/2016 12:47pm Temperature (Calculated Celsius) 36.52460 degrees C (36.4 - 37.5) 10/04/2016 12:47pm Temperature Source Tympanic 10/04/2016 12:47pm Pulse Rate (adult) 70 bpm (60 - 90) 10/04/2016 12:47pm Respiratory Rate 16 bpm (12 - 24) 10/04/2016 12:47pm O2 Sat by Pulse Oximetry 97 % (88 - 100) 10/04/2016 12:47pm Blood Pressure 95/57 mm Hg 10/04/2016 12:47pm Blood Pressure Mean 70 mm Hg 10/04/2016 12:47pm Pain Numeric Pain Scale 0-No Pain 10/04/2016 12:47pm Pain Intensity 0 10/03/2016 9:49pm Height (Feet) 5 feet 10/03/2016 6:39am Height (Inches) 7.00 inches 10/03/2016 6:39am Height (Calculated Centimeters) 170.727811 cm 10/03/2016 6:39am Weight (Pounds) 190 pounds 10/04/2016 6:36am Weight (Ounces) 4.0 oz 10/04/2016 6:36am Weight (Calculated Grams) 37465.949 gm 10/04/2016 6:36am Weight (Calculated Kilograms) 86.993827 kilograms 10/04/2016 6:36am Calculated BMI 29.1 10/03/2016 6:39am Capillary Refill Capillary Refill Less Than 3 Seconds 10/02/2016 7:00pm Results Laboratory Results Test Name Result Units Flags Reference Collection Date/Time Result Date/ Time Comments White Blood Count 9.2 10^3/uL 4.3-11.0 10/04/2016 5:am 10/04/2016 5: 58am Red Blood Count 4.26 10^6/uL L 4.35-5.85 10/04/2016 5:10/04/2016 5: 58am Hemoglobin 13.0 G/DL 11.5-16.0 10/04/2016 5:10/04/2016 5:58am Hematocrit 39 % 35-52 10/04/2016 5:10/04/2016 5:58am Mean Corpuscular Volume 91 FL 80-99 10/04/2016 5:10/04/2016 5: 58am Mean Corpuscular Hemoglobin 31 PG 25-34 10/04/2016 5:10/04/2016 5: 58am Mean Corpuscular Hemoglobin Concent 33 G/DL 32-36 10/04/2016 5:03/2017 5:58am Red Cell Distribution Width 14.4 % 10.0-14.5 10/04/2016 5:2016 5:58am Platelet Count 154 10^3/uL 130-400 10/04/2016 5:10/04/2016 5:58am Mean Platelet Volume 10.7 FL H 7.4-10.4 10/04/2016 5:10/04/2016 5: 58am Neutrophils (%) (Auto) 67 % 42-75 10/04/2016 5:10/04/2016 5:58am Lymphocytes (%) (Auto) 26 % 12-44 10/04/2016 5:10/04/2016 5:58am Monocytes (%) (Auto) 6 % 0-12 10/04/2016 5:10/04/2016 5:58am Eosinophils (%) (Auto) 2 % 0-10 10/04/2016 5:10/04/2016 5:58am Basophils (%) (Auto) 0 % 0-10 10/04/2016 5:10/04/2016 5:58am Neutrophils # (Auto) 6.1 X 10^3 1.8-7.8 10/04/2016 5:10/04/2016 5: 58am Lymphocytes # (Auto) 2.4 X 10^3 1.0-4.0 10/04/2016 5:10/04/2016 5: 58am Monocytes # (Auto) 0.5 X 10^3 0.0-1.0 10/04/2016 5:10/04/2016 5: 58am Eosinophils # (Auto) 0.2 10^3/uL 0.0-0.3 10/04/2016 5:10/04/2016 5 :58am Basophils # (Auto) 0.0 10^3/uL 0.0-0.1 10/04/2016 5:10/04/2016 5: 58am Sodium Level 140 MMOL/L 135-145 10/04/2016 5:10/04/2016 6:29am Potassium Level 4.2 MMOL/L 3.6-5.0 10/04/2016 5:10/04/2016 6:29am Chloride Level 110 MMOL/L H 98-107 10/04/2016 5:10/04/2016 6:29am Carbon Dioxide Level 21 MMOL/L 21-32 10/04/2016 5:10/04/2016 6: 29am Anion Gap 9 MMOL/L 5-14 10/04/2016 5:10/04/2016 6:29am Blood Urea Nitrogen 19 MG/DL H 7-18 10/04/2016 5:10/04/2016 6:29am Creatinine 1.01 MG/DL 0.60-1.30 10/04/2016 5:10/04/2016 6:29am BUN/Creatinine Ratio 19 10/04/2016 5:10/04/2016 6:29am Estimat Glomerular Filtration Rate 56 10/04/2016 5:10/04/2016 6:29am GFR INTERPRETIVE DATA UNITS FOR ESTIMATED GFR (eGFR): mL/min/1.73 M2 REFERENCE RANGE FOR ESTIMATED GFR (eGFR) eGFR NORMAL eGFR >60 MODERATELY DECREASED eGFR 30-59 SEVERLY DECREASED eGFR 15-29 KIDNEY FAILURE <15 (OR DIALYSIS) Glucose Level 96 MG/DL 70-105 10/04/2016 5:10/04/2016 6:29am Glucometer 183 MG/DL H 70-110 10/04/2016 10:51am 10/04/2016 10:58am Calcium Level 9.3 MG/DL 8.5-10.1 10/04/2016 5:10/04/2016 6:29am Magnesium Level 2.3 MG/DL 1.8-2.4 10/04/2016 5:10/04/2016 6:29am Total Bilirubin 0.4 MG/DL 0.1-1.0 10/04/2016 5:10/04/2016 6:29am Alkaline Phosphatase 131 U/L 40-136 10/04/2016 5:10/04/2016 6: 29am Aspartate Amino Transf (AST/SGOT) 69 U/L H 5-34 10/04/2016 5:2016 6:29am Alanine Aminotransferase (ALT/SGPT) 56 U/L H 0-55 10/04/2016 5:10/04 6:29am Total Protein 6.5 G/DL 6.4-8.2 10/04/2016 5:10/04/2016 6:29am Albumin 3.8 G/DL 3.2-4.5 10/04/2016 5:10/04/2016 6:29am Triglycerides Level 136 MG/DL <150 10/04/2016 5:10/04/2016 6:29am Cholesterol Level 193 MG/DL < 200 10/04/2016 5:10/04/2016 6:29am HDL Cholesterol 43 MG/DL 40-60 10/04/2016 5:10/04/2016 6:29am LDL Cholesterol Direct 131 MG/DL H 1-129 10/04/2016 5:10/04/2016 6: 29am VLDL Cholesterol 27 MG/DL 5-40 10/04/2016 5:10/04/2016 6:29am Procedures Procedure Status Date Provider(s) Tracing only of electrocardiogram Completed 10/03/16 EMMANUEL MATHEW MD, FACP, FACC CCDS Tracing only of electrocardiogram Active 10/03/16 EMMANUEL MATHEW MD, FACP, FACC CCDS Encounters Encounter Location Arrival/Admit Date Discharge/Depart Date Attending Provider Departed [facility] 10/02/16 4:26pm 1:20pm EMMANUEL MATHEW FACPS MD HINES Recent Diagnosis Acute ST elevation myocardial infarction (STEMI) involving right coronary artery
--- NOTE | 2016-10-09 13:46 | ECHOCARDIOGRAPHY REPORT ---
PROCEDURE PHYSICIAN: EMMANUEL MATHEW DATE OF PROCEDURE: 10/08/2016 TWO DIMENSIONAL ECHOCARDIOGRAM REPORT PRIMARY PHYSICIAN: Dr. Mathew OTHER PHYSICIAN: REFERRING PHYSICIAN: ORDERING PHYSICIAN: Pauline Garcia APRN INDICATION FOR THE PROCEDURE: Coronary artery disease, history of significant coronary myopathy. MEASUREMENTS DERIVED VALUES LV DIAMETER (LAX) NORMALS NORMALS Diastolic 5. (3.6-5.2) Eject. Fract. (60%+/-6%) Systolic (2.3-3.9) Diastolic Vol. % Shortening (0.22-0.42) Systolic Vol. Aortic Root 3.2 IVS THICKNESS Diastolic 1. (0.6-1.1) LVPW THICKNESS Diastolic 1.1 (0.6-1.1) LA DIAMETER Systolic 3.3 (2.1-3.7) DESCRIPTION: 2-dimensional cardiography shows well preserved global left ventricular systolic function with left ventricular ejection fraction of approximately 60%. There is no significant pericardial effusion. On the views available, there does not appear to be any distinct evidence of significant wall motion abnormalities. Doppler imaging shows trivial, mitral and tricuspid regurgitation. There is no Doppler evidence of any significant valvular stenosis. Mitral inflow is consistent with grade 1 diastolic dysfunction of the left ventricle. The inferior vena cava does not appear to be significantly dilated and does exhibit inspiratory collapse. There is no evidence of significant intracardiac shunt on this transthoracic echocardiographic study. CONCLUSION: 1. Well-preserved global left ventricular systolic function with an ejection fraction of approximately 60%. 2. Trivial mitral and tricuspid regurgitation. 3. Pulmonary artery systolic pressure is estimated to be approximately 35 mmHg. 4. No evidence of any significant valvular stenosis. Job ID: [id number] Dictated Date: 10/09/2016 12:55:19 Bricklayer Tender Date: 10/09/2016 13:40:03 / florention
== END ==
LOC: CARD 13:31
PROVIDERS: ATTEND Nurse Practitioner Family
DX: I25.5 Ischemic cardiomyopathy (principal); I25.10 Atherosclerotic heart disease of native coronary artery without angina pectoris
CPT/HCPCS: 93306

== ENCOUNTER → 2016-11-06 | Outpatient (CLI) | payer OTHER ==
[2016-11-06 10:01] LABS: BASOPHILS % (AUTO) 0 % (0-10); EOSINOPHILS # (AUTO) 0.3 10^3/uL (0.0-0.3); EOSINOPHILS % (AUTO) 3 % (0-10); LYMPHOCYTES # (AUTO) 1.9 X 10^3 (1.0-4.0); LYMPHOCYTES % (AUTO) 21 % (12-44); MEAN CORPUSCULAR HEMOGLOBIN 30 PG (25-34); MEAN CORPUSCULAR HGB CONC 33 G/DL (32-36); MEAN CORPUSCULAR VOLUME 92 FL (80-99); MONOCYTES # (AUTO) 0.4 X 10^3 (0.0-1.0); MONOCYTES % (AUTO) 4 % (0-12); NEUTROPHILS # (AUTO) 6.3 X 10^3 (1.8-7.8); NEUTROPHILS % (AUTO) 71 % (42-75); PLATELET COUNT 176 10^3/uL (130-400); RED BLOOD COUNT 4.46 10^6/uL (4.35-5.85); RED CELL DISTRIBUTION WIDTH 14.2 % (10.0-14.5); WHITE BLOOD COUNT 8.8 10^3/uL (4.3-11.0)
[2016-11-06 10:15] LABS: ALBUMIN 4.4 G/DL (3.2-4.5); BILIRUBIN,TOTAL 0.4 MG/DL (0.1-1.0); CREATININE SERUM 1.03 MG/DL (0.60-1.30); MAGNESIUM 2.4 MG/DL (1.8-2.4); POTASSIUM 4.1 MMOL/L (3.6-5.0); TOTAL PROTEIN 7.5 G/DL (6.4-8.2)
[2016-11-06 10:26] LABS: ERYTHROCYTE SEDIMENTATION RATE 20 MM/HR (0-30)
[2016-11-06 10:34] LABS: THYROID STIMULATING HORMONE 1.23 UIU/ML (0.35-4.94)
== END ==
LOC: LAB 09:28
PROVIDERS: ATTEND Internal Medicine Cardiovascular Disease
DX: I25.10 Atherosclerotic heart disease of native coronary artery without angina pectoris (principal); R53.83 Other fatigue; E78.4 Other hyperlipidemia; Z72.0 Tobacco use
CPT/HCPCS: 36415; 80053; 80061; 83735; 84443; 85025; 85652

== ENCOUNTER 2016-12-15 13:24 | Emergency (ER) | payer SELFPAY ==
[~2016-12-15] VITALS: Ht 177.8 cm; Wt 85.7 kg
[2016-12-15] MEDS ORDERED: AMOX-355 PO (13:56)
--- NOTE | 2016-12-15 13:57 | ED Lower Extremity ---
General Chief Complaint: Lower Extremity Stated Complaint: L FOOT PAIN Nursing Triage Note: PT CO OF L FOOT PAIN, STATES HURT WORSE YESTERDAY, FOOT REDDEND AND WARM TO TOUCH, PT DENIES INJURY Nursing Sepsis Screen: No Definite Risk Source: patient Exam Limitations: no limitations History of Present Illness Time seen by provider: 13:53 Initial Comments To ER with pain and redness to the dorsal left foot. This began 2 days ago. Yesterday she was unable to bear weight on it due to the pain. Today pain has improved but still present. No fevers or chills. No known injury. She is a diabetic. She recently had STEMI. Onset: just prior to arrival Severity: moderate Pain/Injury Location: left foot Method of Injury: unknown Modifying Factors: Worse With Movement Allergies and Home Medications Allergies Coded Allergies: acetaminophen (Unverified Allergy, Unknown, 10/02/16) Home Medications Amoxicillin/Potassium Clav 1 Each Tablet, 1 EACH PO BID, #14 Prescribed by: BRIAN JENKINS on 12/15/16 1356 Aspirin 81 Mg Tablet.dr, 81 MG PO DAILY, #90 Ref 5 Prescribed by: FORREST SEGAL on 10/04/16 1023 Atorvastatin Calcium 40 Mg Tablet, 40 MG PO HS, #30 Ref 5 Prescribed by: FORREST SEGAL on 10/04/16 1023 Clopidogrel Bisulfate 75 Mg Tablet, 75 MG PO DAILY, #90 Ref 3 Prescribed by: FORREST SEGAL on 10/04/16 1023 Lisinopril 5 Mg Tablet, 2.5 MG PO DAILY, #30 Ref 5 Prescribed by: FORREST SEGAL on 10/04/16 1023 Metoprolol Succinate 25 Mg Tab.er.24h, 12.5 MG PO DAILY, #30 Ref 5 Prescribed by: FORREST SEGAL on 10/04/16 1023 Multivitamin 1 Each Tablet, 1 TAB PO DAILY, (Reported) [place] 3 Polyunsat Fatty Acids 1,000 Mg Cap, 2,000 MG PO DAILY, (Reported) TAKES 2 (1000MG) CAPSULES Constitutional: see HPI EENTM: see HPI Respiratory: no symptoms reported Cardiovascular: no symptoms reported Genitourinary: no symptoms reported Musculoskeletal: see HPI Skin: no symptoms reported Psychiatric/Neurological: No Symptoms Reported Past Eexhlgx-Olifgl-Fegqbw Hx Patient Social History Alcohol Use: Denies Use Recreational Drug Use: No Smoking Status: Current Everyday Smoker Type Used: Cigarettes Recent Foreign Travel: No Contact w/Someone Who Travel: No Recent Infectious Disease Expo: No Recent Hopitalizations: No Immunizations Up To Date Tetanus Booster (TDap): Unknown PED Vaccines UTD: No Seasonal Allergies Seasonal Allergies: No Surgeries HX Surgeries: No Respiratory Hx Respiratory Disorders: No Cardiovascular Hx Cardiac Disorders: Yes Cardiac Disorders: Heart Attack, High Cholesterol, Hypertension Neurological Hx Neurological Disorders: No Reproductive System Sexually Transmitted Disease: No HIV/AIDS: No Gastrointestinal Hx Gastrointestinal Disorders: No Musculoskeletal Hx Musculoskeletal Disorders: No Endocrine Hx Endocrine Disorders: Yes Endocrine Disorders: Diabetes, Non-Insulin dep HEENT Loss of Vision: Right Hearing Impairment: Hard of Hearing Blood Transfusions Adverse Reaction to a Blood Tr: No Family Medical History Family Medial History: Alzheimer's disease 19 FATHER Breast malignancy G8 SISTER COPD (chronic obstructive pulmonary disease) G8 BROTHER Cardiomegaly 19 MOTHER, Onset:46 Cardiovascular disease G8 BROTHER G8 SISTER Diabetes mellitus 19 MOTHER Hypertension 19 MOTHER Myocardial infarction G8 BROTHER ( age 46 ) G8 BROTHER Prostate cancer 19 FATHER Uterine cancer Physical Exam Vital Signs Vital Sign - Last 12Hours 12/15/16 13:32 Temp 98.2 Pulse 82 Resp 18 B/P (MAP) 142/81 Pulse Ox 96 Capillary Refill : Less Than 3 Seconds General Appearance: WD/WN, no apparent distress HEENT: PERRL/EOMI, normal ENT inspection Neck: non-tender, full range of motion Respiratory: no respiratory distress, no accessory muscle use Gastrointestinal: non tender, soft Hips: bilateral hip non-tender, bilateral hip normal inspection, bilateral hip normal range of motion Legs: bilateral leg non-tender, bilateral leg normal inspection, bilateral leg normal range of motion Knees: bilateral knee non-tender, bilateral knee normal inspection, bilateral knee normal range of motion Ankles: bilateral ankle non-tender, bilateral ankle normal inspection, bilateral ankle normal range of motion Feet: left foot pain, left foot soft tissue tenderness, left foot other (no swelling but there is erythema to the dorsal aspect of the left foot. It is not at the first MTP joint as in podagra. This is over the first second and third metatarsals.) Neurologic/Psychiatric: alert, normal mood/affect, oriented x 3 Skin: normal color, warm/dry Progress/Results/Core Measures Results/Orders Lab Results Laboratory Tests Test 12/15/16 13:54 Range/Units White Blood Count 7.2 4.3-11.0 10^3/uL Red Blood Count 4.39 4.35-5.85 10^6/uL Hemoglobin 13.2 11.5-16.0 G/DL Hematocrit 40 35-52 % Mean Corpuscular Volume 91 80-99 FL Mean Corpuscular Hemoglobin 30 25-34 PG Mean Corpuscular Hemoglobin Concent 33 32-36 G/DL Red Cell Distribution Width 14.3 10.0-14.5 % Platelet Count 175 130-400 10^3/uL Mean Platelet Volume 10.5 H 7.4-10.4 FL Neutrophils (%) (Auto) 64 42-75 % Lymphocytes (%) (Auto) 24 12-44 % Monocytes (%) (Auto) 8 0-12 % Eosinophils (%) (Auto) 3 0-10 % Basophils (%) (Auto) 1 0-10 % Neutrophils # (Auto) 4.6 1.8-7.8 X 10^3 Lymphocytes # (Auto) 1.7 1.0-4.0 X 10^3 Monocytes # (Auto) 0.6 0.0-1.0 X 10^3 Eosinophils # (Auto) 0.2 0.0-0.3 10^3/uL Basophils # (Auto) 0.0 0.0-0.1 10^3/uL Sodium Level 139 135-145 MMOL/L Potassium Level 3.9 3.6-5.0 MMOL/L Chloride Level 106 98-107 MMOL/L Carbon Dioxide Level 23 21-32 MMOL/L Anion Gap 10 5-14 MMOL/L Blood Urea Nitrogen 16 7-18 MG/DL Creatinine 0.98 0.60-1.30 MG/DL Estimat Glomerular Filtration Rate 58 BUN/Creatinine Ratio 16 Glucose Level 131 H 70-105 MG/DL Uric Acid 5.7 2.6-7.2 MG/DL Calcium Level 10.0 8.5-10.1 MG/DL My Orders Orders - BRIAN JENKINS APRN Dexamethasone Pf Injection (Decadron Pf (12/15/16 14:00) Amoxicillin/Clavulanate Tablet (Augmenti (12/15/16 14:00) Ketorolac Injection (Toradol Injection) (12/15/16 14:00) Cbc With Automated Diff (12/15/16 13:57) Basic Metabolic Panel (12/15/16 13:57) Uric Acid (12/15/16 13:57) Foot, Left, 3 Views (12/15/16 13:58) Amoxicillin/Clavulanate Tablet (Augmenti (12/15/16 14:15) Amoxicillin/Clavulanate Tablet (Augmenti (12/15/16 13:58) Medications Given in ED Current Medications Medications Dose Ordered Sig/Salma Route Start Time Stop Time Status Last Admin Dose Admin Dexamethasone Sodium Phosphate 10 mg ONCE ONCE IM 12/15/16 14:00 12/15/16 14:01 DC 12/15/16 14:12 10 MG Ketorolac Tromethamine 30 mg ONCE ONCE IM 12/15/16 14:00 12/15/16 14:01 DC 12/15/16 14:11 30 MG Vital Signs/I&O Vital Sign - Last 12Hours 12/15/16 13:32 Temp 98.2 Pulse 82 Resp 18 B/P (MAP) 142/81 Pulse Ox 96 Blood Pressure Mean: 101 Departure Communication Progress Notes Patient states she is a diabetic but takes no medications for this. As such I will give one dose of Decadron here and Toradol here. I will not have her use anti-inflammatories at home due to her elevated BUN on her October labs and due to the possible adverse cardiovascular effects associated with NSAID use. We will treat with Augmentin in the off chance that this is an infectious process. Impression Impression: Primary Impression: Gout Disposition: HOME, SELF-CARE Condition: Stable Departure-Patient Inst. Decision time for Depature: 13:55 Referrals: DENISE HILL MD (PCP/Family) Primary Care Physician Patient Instructions: Gout (DC) Add. Discharge Instructions: 1. Return to ER for any fevers, worsening redness or swelling or other concerns 2. Follow-up with her regular doctor later this week 3. All discharge instructions reviewed with patient and/or family. Voiced understanding. Scripts Amoxicillin/Potassium Clav (Augmentin 500-125 Tablet) 1 Each Tablet 1 EACH PO BID, #14 TAB Prov: BRIAN JENKINS APRN 12/15/16 BRIAN JENKINS APRN December 15, 2016 13:57
[2016-12-15] MEDS ORDERED: AUGMENTIN 875 MG TAB (AMOXICILLIN/CLAVULANATE) ONE (13:58)
[2016-12-15] MEDS ORDERED: DEXAMETHASONE PF 10 MG/ML (DECADRON) VIAL IM ONE (14:00)
[2016-12-15] MEDS ORDERED: AUGMENTIN 500 MG TAB (AMOXICILLIN/CLAVULANATE) PO ONE (14:00)
[2016-12-15] MEDS ORDERED: KETOROLAC 30 MG/ML VIAL IM ONE (14:00)
[2016-12-15 14:06] LABS: BASOPHILS % (AUTO) 1 % (0-10); EOSINOPHILS # (AUTO) 0.2 10^3/uL (0.0-0.3); EOSINOPHILS % (AUTO) 3 % (0-10); LYMPHOCYTES # (AUTO) 1.7 X 10^3 (1.0-4.0); LYMPHOCYTES % (AUTO) 24 % (12-44); MEAN CORPUSCULAR HEMOGLOBIN 30 PG (25-34); MEAN CORPUSCULAR HGB CONC 33 G/DL (32-36); MEAN CORPUSCULAR VOLUME 91 FL (80-99); MEAN PLATELET VOLUME 10.5 FL (7.4-10.4); MONOCYTES # (AUTO) 0.6 X 10^3 (0.0-1.0); MONOCYTES % (AUTO) 8 % (0-12); NEUTROPHILS # (AUTO) 4.6 X 10^3 (1.8-7.8); NEUTROPHILS % (AUTO) 64 % (42-75); PLATELET COUNT 175 10^3/uL (130-400); RED BLOOD COUNT 4.39 10^6/uL (4.35-5.85); RED CELL DISTRIBUTION WIDTH 14.3 % (10.0-14.5); WHITE BLOOD COUNT 7.2 10^3/uL (4.3-11.0)
[2016-12-15] MEDS ORDERED: AUGMENTIN 875 MG TAB (AMOXICILLIN/CLAVULANATE) PO SCH (14:15)
--- NOTE | 2016-12-15 14:16 | Diagnostic Imaging Report ---
INDICATION: Foot pain, redness and swelling. COMPARISON: None. FINDINGS: Three views of the left foot are obtained. No acute fracture, malalignment or osseous destructive process is seen. There are mild degenerative changes of the first MTP joint and first interphalangeal joint with joint space narrowing and spurring. There is moderate spurring and enthesopathy of the os calcis and there is spurring of the dorsal aspect of the midfoot. IMPRESSION: Degenerative changes, as described. No acute osseous abnormality is seen. Dictated by: Dictated on workstation # [id number]
[2016-12-15 14:24] LABS: CREATININE SERUM 0.98 MG/DL (0.60-1.30); POTASSIUM 3.9 MMOL/L (3.6-5.0); URIC ACID 5.7 MG/DL (2.6-7.2)
[2016-12-15 14:35] VITALS: BP 136/78
== END 2016-12-15 14:35 | disposition home or self-care (01) ==
LOC: EDUNIT# 13:24 → ER 13:26
DX: M10.072 Idiopathic gout, left ankle and foot (principal); I10 Essential (primary) hypertension; E11.9 Type 2 diabetes mellitus without complications; I25.2 Old myocardial infarction; F17.210 Nicotine dependence, cigarettes, uncomplicated; Z79.02 Long term (current) use of antithrombotics/antiplatelets; Z79.899 Other long term (current) drug therapy
CPT/HCPCS: 36415; 73630; 80048; 84550; 85025; 96372; 99283

== ENCOUNTER → 2017-02-06 | Outpatient (CLI) | payer OTHER ==
[~2017-02-06] MED LIST changes: +AMOX-355 PO
[2017-02-06 12:16] LABS: ALBUMIN 4.2 GM/DL (3.2-4.5); BILIRUBIN,TOTAL 0.4 MG/DL (0.1-1.0); CALCIUM 9.4 MG/DL (8.5-10.1); CREATININE SERUM 1.01 MG/DL (0.60-1.30); POTASSIUM 4.4 MMOL/L (3.6-5.0); TOTAL PROTEIN 7.2 GM/DL (6.4-8.2)
== END ==
LOC: LAB 11:18
PROVIDERS: ATTEND Nurse Practitioner Family
DX: I25.10 Atherosclerotic heart disease of native coronary artery without angina pectoris (principal); E78.4 Other hyperlipidemia
CPT/HCPCS: 36415; 80053; 80061

== ENCOUNTER → 2017-04-08 | Outpatient (CLI) | payer OTHER ==
[~2017-04-08] MED LIST changes: +BARIUM SUSPENSION 105% (LIQUID POLIBAR PLUS) 240 ML/DOSE PO ONE; +BARIUM SUSPENSION 60% (LIQUID EZ PAQUE) 240 ML DOSE PO ONE
--- NOTE | 2017-04-08 12:17 | Diagnostic Imaging Report ---
EXAMINATION: Barium swallow double-contrast. INDICATION: Dysphagia Fluoroscopy time: One minute and 6 seconds TECHNIQUE: Door Hanger image of the chest was performed. Subsequently, the patient was given gas forming granules for oral ingestion followed by thick and thin barium to drink. Swallowing through the esophagus was observed with fluoroscopy and overhead images, as well as multiple spot images in the upright and prone positions, were taken. FINDINGS: Door Hanger image of the chest demonstrate no significant abnormality. No significant reflux is seen during the study. Normal motility seen. The esophagus is normal in caliber and contour. There is no mucosal abnormality, diverticulum or filling defect to suggest a mass. There is no hiatal hernia demonstrated. IMPRESSION: Unremarkable barium swallow. Dictated by: Dictated on workstation # [id number]
== END ==
LOC: RAD 11:11
PROVIDERS: ATTEND Family Medicine
DX: R13.10 Dysphagia, unspecified (principal)
CPT/HCPCS: 74220

== ENCOUNTER → 2017-04-16 | Outpatient (CLI) | payer OTHER ==
[~2017-04-16] VITALS: Ht 177.8 cm; Wt 87.5 kg
[~2017-04-16] MED LIST changes: -BARIUM SUSPENSION 105% (LIQUID POLIBAR PLUS) 240 ML/DOSE PO ONE; -BARIUM SUSPENSION 60% (LIQUID EZ PAQUE) 240 ML DOSE PO ONE; +CATHETER FLUSH 10 ML SYR IV PRN; +REGADENOSON 0.4 MG/5 ML SYR (LEXISCAN) IV ONE
[2017-04-16 13:24] VITALS: BP 136/81
--- NOTE | 2017-04-17 14:30 | STRESS TEST ---
DATE OF SERVICE: 04/16/2017 RESTING AND POST REGADENOSON TECHNETIUM 99M TETROFOSMIN SPECT CT IMAGING ORDERING PHYSICIAN: Dr. Mathew. PRIMARY PHYSICIAN: Dr. Smith. CLINICAL DIAGNOSIS: Coronary artery disease. Baseline images were carried out after injection of 10.56 mCi of technetium 99-m tetrofosmin. This was followed by 0.4 mg regadenoson and 29.2 mCi of technetium 99-m tetrofosmin for stress imaging. The electrocardiogram showed sinus rhythm at baseline and there was nonspecific T-wave abnormality. The electrocardiogram did not change significantly with regadenoson infusion. The patient tolerated the procedure well. Review of images at rest and following stress does not indicate significant perfusion defects consistent with myocardial ischemia or infarction. Gated images show normal global systolic function with normal regional wall motion. Left ventricular ejection fraction is calculated to be 66%. Left ventricular end diastolic volume is 90 mL. TID is absent (1.06). CONCLUSIONS: 1. No evidence of significant myocardial ischemia or infarction on this study. 2. Normal regional wall motion. 3. Normal global left ventricular systolic function with a calculated ejection fraction of 66%. Job ID: [id number] DocumentID: [id number] Dictated Date: 04/16/2017 16:04:30 School Age [employer] Date: 04/17/2017 12:52:17 Dictated By: EMMANUEL MATHEW MD, MA, FACP, FACC,
== END ==
LOC: CARD 11:33
PROVIDERS: ATTEND Internal Medicine Cardiovascular Disease
DX: I25.10 Atherosclerotic heart disease of native coronary artery without angina pectoris (principal); E78.4 Other hyperlipidemia; Z72.0 Tobacco use
CPT/HCPCS: 78452; 93017

== ENCOUNTER → 2017-08-07 | Outpatient (CLI) | payer SELFPAY ==
[~2017-08-07] MED LIST changes: -CATHETER FLUSH 10 ML SYR IV PRN; -METO-270 PO; +METO-387 PO; -REGADENOSON 0.4 MG/5 ML SYR (LEXISCAN) IV ONE
[2017-08-07 10:58] LABS: ALBUMIN 4.5 GM/DL (3.2-4.5); BILIRUBIN,TOTAL 0.3 MG/DL (0.1-1.0); CALCIUM 10.3 MG/DL (8.5-10.1); CREATININE SERUM 1.14 MG/DL (0.60-1.30); POTASSIUM 4.3 MMOL/L (3.6-5.0); TOTAL PROTEIN 7.9 GM/DL (6.4-8.2)
== END ==
LOC: LAB 10:20
PROVIDERS: ATTEND Nurse Practitioner Family
DX: I25.10 Atherosclerotic heart disease of native coronary artery without angina pectoris (principal); E78.4 Other hyperlipidemia
CPT/HCPCS: 36415; 80053; 80061

== ENCOUNTER 2017-09-15 07:43 | Observation (INO) | payer SELFPAY ==
[~2017-09-15] VITALS: Ht 177.8 cm; Wt 89.4 kg
--- OUTSIDE RECORDS SUMMARY | 2017-09-15 07:47 | XMS REPORT ---
Author Author DENISE HILL Organization [facility] Address [address] [place] [address] Care Team Providers Care Bar Hostess Name Role Phone DENISE HILL Unavailable PROBLEMS Type Condition ICD9-CM Code [id number] Code Onset Dates Condition Status SNOMED Code Problem Dysphagia, unspecified type R13.10 Active 18131011 Problem Non-insulin dependent type 2 diabetes mellitus E11.[address] elevation myocardial infarction involving right coronary artery I21.11 Active 992428654 Problem Tobacco abuse Z72.0 Active 764669144 ALLERGIES Substance Reaction Event Type Date Status Tylenol chest pain Drug Allergy Sep, Active Metformin 500 Mg Tablet pt states she felt groggy Non Drug Allergy Sep, Active SOCIAL HISTORY Never Assessed PLAN OF CARE Activity Details Follow Up 3 Months with Luis f/u AR/DM Reason: VITAL SIGNS Height 70 in 2016-10-11 Weight 189 lbs 2016-10-11 Temperature 98.6 degrees Fahrenheit 2016-10-11 Heart Rate 84 bpm 2016-10-11 Respiratory Rate 20 2016-10-11 BMI 27.12 kg/m2 2016-10-11 Blood pressure systolic 106 mmHg 2016-10-11 Blood pressure diastolic 66 mmHg 2016-10-11 MEDICATIONS Medication Instructions Dosage Frequency Start Date End Date Duration Status Atorvastatin Calcium 40 MG Orally Once a day 1 tablet 24h Active Aspirin 81 MG Orally Once a day 1 tablet 24h Active Multivitamin Women - Active Clopidogrel Bisulfate 75 MG Orally Once a day 1 tablet 24h Active Lisinopril 5 mg Orally Once a day 1/2 tablet 24h Active [place] 3 1000 MG Orally Once a day 2 capsule 24h Active Metoprolol Succinate ER 25 MG Orally Once a day 1/2 tablet 24h Active RESULTS No Results PROCEDURES No Known procedures IMMUNIZATIONS No Known Immunizations MEDICAL (GENERAL) HISTORY Type Description Date Medical History Hyperlipidemia Medical History Miocardial Infarction (Hx 09/2016) 2 stents placed in RCA by DR MACHADO Surgical History Heart Cath 2017 Surgical History Cholecystectomy 1985
--- OUTSIDE RECORDS SUMMARY | 2017-09-15 07:49 | XMS REPORT | Continuity of Care Document ---
Author Author [facility] Organization [facility] Address Unknown Phone Unavailable Allergies Active Description [...] metformin 500 mg Tablet Drug Allergy 03/06/2012 Yes acetaminophen [id number] Drug Allergy Unknown N/A 10/02/2016 Medications There is no data. Problems Date Dx Coded Attending Type Code [...] CORREA DO 786.52 Chest Wall Pain 11/22/2010 CORREA DO, [...] CORREA DO, HAWA K 272.4 DYSLIPIDEMIA 03/06/2012 SUNNY BRITTHAWA K 586 RENAL FAILURE UNSPECIFIED 03/06/2012 SUNNY BRITTHAWA K 599.0 Urinary Tract Infection 03/06/2012 SUNNY BRITT HA[place] K V70.0 ROUTINE GENERAL MEDICAL EXAMINATION AT A HEALTH CARE FACILITY 12/03/2012 461.9 SINUSITIS ACUTE 12/03/2012 719.40 PAIN IN JOINT SITE UNSPECIFIED 12/03/2012 461.9 SINUSITIS ACUTE 12/03/2012 719.40 PAIN IN JOINT SITE UNSPECIFIED 12/03/2012 CORREA HAWA BRITT K 461.9 SINUSITIS ACUTE 12/03/2012 SUNNY BRITT [place] K 719.40 PAIN IN JOINT SITE UNSPECIFIED 12/03/2012 CORREA HAWA BRITT K 461.9 SINUSITIS ACUTE 12/03/2012 SUNNY BRITT [place] K 719.40 PAIN IN JOINT SITE UNSPECIFIED 10/02/2016 ANGI BO Ot 461.9 ACUTE SINUSITIS NOS 10/04/2016 JEANNETTE MOSS FACC, ALI FACP CCDS Ot E11.9 TYPE 2 DIABETES MELLITUS WITHOUT COMPLIC 10/04/2016 JEANNETTE MOSS FACC, ALI FACP CCDS Ot I21.19 STEMI INVOLVING OT CORONARY ARTERY OF I 10/04/2016 JEANNETTE MOSS FACC, ALI FACP CCDS Ot I25.10 ATHSCL HEART DISEASE OF [place] CORONARY 10/04/2016 JEANNETTE MOSS FACC, ALI FACP CCDS Ot I25.5 ISCHEMIC CARDIOMYOPATHY 10/04/2016 JEANNETTE MOSS FACC, ALI FACP CCDS Ot I47.2 VENTRICULAR TACHYCARDIA 10/04/2016 JEANNETTE MOSS FACC, ALI FACP CCDS Ot Z72.0 TOBACCO USE 10/04/2016 EJANNETTE MOSS FACC, ALI FACP CCDS Ot Z91.19 PATIENT'S NONCOMPLIANCE W OT MEDICAL TR 10/05/2016 ANGI BO Ot 461.9 ACUTE SINUSITIS NOS 10/05/2016 ANGI BO Ot 461.9 ACUTE SINUSITIS NOS 10/08/2016 ANGI BO Ot 461.9 ACUTE SINUSITIS NOS 10/09/2016 FORREST SEGALP Ot I25.10 ATHSCL HEART DISEASE OF [place] CORONARY 10/09/2016 BAIMA, FORREST L PLAYGROUND WORKER Ot I25.5 ISCHEMIC CARDIOMYOPATHY 10/09/2016 BAIMA, FORREST L PLAYGROUND WORKER Ot I25.10 ATHSCL HEART DISEASE OF [place] CORONARY 10/09/2016 BAIMA, FORREST L PLAYGROUND WORKER Ot I25.5 ISCHEMIC CARDIOMYOPATHY 10/10/2016 BAIMA, FORREST L PLAYGROUND WORKER Ot I25.10 ATHSCL HEART DISEASE OF [place] CORONARY 10/10/2016 BAIMA, FORREST L PLAYGROUND WORKER Ot I25.5 ISCHEMIC CARDIOMYOPATHY 10/30/2016 BAIMA, FORREST L PLAYGROUND WORKER Ot I25.10 ATHSCL HEART DISEASE OF [place] CORONARY 10/30/2016 BAIMA, FORREST L PLAYGROUND WORKER Ot I25.5 ISCHEMIC CARDIOMYOPATHY 10/30/2016 ANGI BO Ot 461.9 ACUTE SINUSITIS NOS 10/30/2016 BAIMA, FORREST L PLAYGROUND WORKER Ot I25.10 ATHSCL HEART DISEASE OF [place] CORONARY 10/30/2016 BAIMA, FORREST L PLAYGROUND WORKER Ot I25.5 ISCHEMIC CARDIOMYOPATHY 11/06/2016 ANGI BO Ot 461.9 ACUTE SINUSITIS NOS 11/06/2016 BAIMA, FORREST L PLAYGROUND WORKER Ot I25.10 ATHSCL HEART DISEASE OF [place] CORONARY 11/06/2016 BAIMA, FORREST L PLAYGROUND WORKER Ot I25.5 ISCHEMIC CARDIOMYOPATHY 11/07/2016 JEANNETTE MOSS FACC, EMMANUEL FACP CCDS Ot E78.4 OTHER HYPERLIPIDEMIA 11/07/2016 JEANNETTE MOSS FACC, ALI FACP CCDS Ot I25.10 ATHSCL HEART DISEASE OF [place] CORONARY 11/07/2016 JEANNETTE MOSS FACC, ALI FACP CCDS Ot R53.83 OTHER FATIGUE 11/07/2016 JEANNETTE MOSS FACC, ALI FACP CCDS Ot Z72.0 TOBACCO USE 11/19/2016 JEANNETTE MOSS FACC, ALI FACP CCDS Ot E78.4 OTHER HYPERLIPIDEMIA 11/19/2016 JEANNETTE MOSS FACC, ALI FACP CCDS Ot I25.10 ATHSCL HEART DISEASE OF [place] CORONARY 11/19/2016 JEANNETTE MOSS FACC, ALI FACP CCDS Ot R53.83 OTHER FATIGUE 11/19/2016 JEANNETTE MOSS FACC, ALI FACP CCDS Ot Z72.0 TOBACCO USE 12/15/2016 BRIAN JENKINS APRN Ot E11.9 TYPE 2 DIABETES MELLITUS WITHOUT COMPLIC 12/15/2016 BRIAN JENKINS [employer]OR MAKER DYER Ot F17.210 NICOTINE DEPENDENCE, CIGARETTES, UNCOMPL 12/15/2016 BRIAN JENKINS [employer] MAKER DYER Ot I10 ESSENTIAL (PRIMARY) HYPERTENSION 12/15/2016 BRIAN JENKINS [employer]OR MAKER DYER Ot I25.2 OLD MYOCARDIAL INFARCTION 12/15/2016 BRIAN JENKINS [employer] MAKER DYER Ot 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, LEFT ANKLE AND FOOT 12/15/2016 BRIAN JENKINS [employer] MAKER DYER Ot M79.672 PAIN IN LEFT FOOT 12/15/2016 BRIAN JENKINS COLOR MAKER DYER Ot Z79.02 CHARGE POSTER (CURRENT) USE OF 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 12/15/2016 BRIAN JENKINS [employer] MAKER DYER Ot Z79.899 OTHER ASSISTED (CURRENT) DRUG THERAPY 12/16/2016 ANGI BO Ot 461.9 ACUTE SINUSITIS NOS 12/16/2016 FORREST SEGAL PLAYGROUND WORKER Ot I25.10 ATHSCL HEART DISEASE OF [place] CORONARY 12/16/2016 FORREST SEGAL PLAYGROUND WORKER Ot I25.5 ISCHEMIC CARDIOMYOPATHY 12/16/2016 JEANNETTE MOSS FACC, ALI FACP CCDS Ot E78.4 OTHER HYPERLIPIDEMIA 12/16/2016 JEANNETTE MOSS FACC, ALI FACP CCDS Ot I25.10 ATHSCL HEART DISEASE OF [place] CORONARY 12/16/2016 JEANNETTE MOSS FACC, ALI FACP CCDS Ot R53.83 OTHER FATIGUE 12/16/2016 JEANNETTE MOSS FACC, ALI FACP CCDS Ot Z72.0 TOBACCO USE 12/20/2016 BRIAN JENKINS [employer] MAK[employer] DYER Ot E11.9 TYPE 2 DIABETES MELLITUS WITHOUT COMPLIC 12/20/2016 BRIAN JENKINS [employer] MAKER DYER Ot F17.210 NICOTINE DEPENDENCE, CIGARETTES, UNCOMPL 12/20/2016 BRIAN JENKINS COLOR MAKER DYER Ot I10 ESSENTIAL (PRIMARY) HYPERTENSION 12/20/2016 BRIAN JENKINS COLOR MAKER DYER Ot I25.2 OLD MYOCARDIAL INFARCTION 12/20/2016 BRIAN JENKINS APRN Ot 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, LEFT ANKLE AND FOOT 12/20/2016 BRIAN JENKINS APRN Ot M79.672 PAIN IN LEFT FOOT 12/20/2016 BRIAN JENKINS APRN Ot Z79.02 CHARGE POSTER (CURRENT) USE OF 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 12/20/2016 BRIAN JENKINS APRN Ot Z79.899 OTHER ASSISTED (CURRENT) DRUG THERAPY 01/03/2017 ANGI BO Ot 461.9 ACUTE SINUSITIS NOS 01/03/2017 BAIMA, FORREST L PLAYGROUND WORKER Ot I25.10 ATHSCL HEART DISEASE OF [place] CORONARY 01/03/2017 BAIMA, FORREST L PLAYGROUND WORKER Ot I25.5 ISCHEMIC CARDIOMYOPATHY 01/03/2017 JEANNETTE MOSS FACC, ALI FACP CCDS Ot E78.4 OTHER HYPERLIPIDEMIA 01/03/2017 JEANNETTE MOSS FACC, ALI FACP CCDS Ot I25.10 ATHSCL HEART DISEASE OF [place] CORONARY 01/03/2017 JEANNETTE MOSS FACC, ALI FACP CCDS Ot R53.83 OTHER FATIGUE 01/03/2017 JEANNETTE MOSS FACC, ALI FACP CCDS Ot Z72.0 TOBACCO USE 02/06/2017 ANGI BO Ot 461.9 ACUTE SINUSITIS NOS 02/06/2017 BAIMA, FORREST L PLAYGROUND WORKER Ot I25.10 ATHSCL HEART DISEASE OF [place] CORONARY 02/06/2017 BAIMA, FORREST L PLAYGROUND WORKER Ot I25.5 ISCHEMIC CARDIOMYOPATHY 02/06/2017 JEANNETTE MOSS FACC, ALI FACP CCDS Ot E78.4 OTHER HYPERLIPIDEMIA 02/06/2017 JEANNETTE MOSS FACC, ALI FACP CCDS Ot I25.10 ATHSCL HEART DISEASE OF [place] CORONARY 02/06/2017 JEANNETTE MOSS FACC, ALI FACP CCDS Ot R53.83 OTHER FATIGUE 02/06/2017 JEANNETTE MOSS FACC, ALI FACP CCDS Ot Z72.0 TOBACCO USE 02/13/2017 BAIMA, FORREST L PLAYGROUND WORKER Ot E78.4 OTHER HYPERLIPIDEMIA 02/13/2017 BAIMA, FORREST L PLAYGROUND WORKER Ot I25.10 ATHSCL HEART DISEASE OF [place] CORONARY 04/08/2017 ANGI BO Ot 461.9 ACUTE SINUSITIS NOS 04/08/2017 BAIMA, FORREST L PLAYGROUND WORKER Ot I25.10 ATHSCL HEART DISEASE OF [place] CORONARY 04/08/2017 BAIMA, FORREST L PLAYGROUND WORKER Ot I25.5 ISCHEMIC CARDIOMYOPATHY 04/08/2017 JEANNETTE MOSS FACC, ALI FACP CCDS Ot E78.4 OTHER HYPERLIPIDEMIA 04/08/2017 JEANNETTE MOSS FACC, ALI FACP CCDS Ot I25.10 ATHSCL HEART DISEASE OF [place] CORONARY 04/08/2017 JEANNETTE MOSS [facility], ALI FACP CCDS Ot R53.83 OTHER FATIGUE 04/08/2017 JEANNETTE MOSS FACC, ALI FACP CCDS Ot Z72.0 TOBACCO USE 04/08/2017 BAIMAFORREST L PLAYGROUND WORKER Ot E78.4 OTHER HYPERLIPIDEMIA 04/08/2017 BAIMA, FORREST L PLAYGROUND WORKER Ot I25.10 ATHSCL HEART DISEASE OF [place] CORONARY 04/24/2017 LIZ MOSS, DENISE Fraser Ot R13.10 DYSPHAGIA, UNSPECIFIED 04/24/2017 JEANNETTE MOSS [facility], ALI FACP CCDS Ot E78.4 OTHER HYPERLIPIDEMIA 04/24/2017 JEANNETTE MOSS FACC, ALI FACP CCDS Ot I25.10 ATHSCL HEART DISEASE OF [place] CORONARY 04/24/2017 JEANNETTE MOSS FACC, ALI FACP CCDS Ot Z72.0 TOBACCO USE 08/09/2017 BAIMA FORREST L PLAYGROUND WORKER Ot E78.4 OTHER HYPERLIPIDEMIA 08/09/2017 BAIMA FORREST L PLAYGROUND WORKER Ot I25.10 ATHSCL HEART DISEASE OF [place] CORONARY Procedures Code Description [place] [address] ROUTINE VENIPUNCTURE 06/02/2012 84177 A1C (IN-HOUSE) 06/02/2012 15081 MICRO ALBUMIN-IN HOUSE 06/02/2012 58042 CMP 06/02/2012 33070 LIPID PANEL 06/02/2012 [id number] GFR CALC (RESULT ONLY) 06/02/2012 43534 ROUTINE VENIPUNCTURE 12/03/2012 92730 A1C (IN-HOUSE) 12/03/2012 74502 CMP 12/03/2012 96714 LIPID PANEL 12/03/2012 [id number] GFR CALC (RESULT ONLY) 12/03/[address] SINUS W/O CONTRAST 12/15/2012 35137 ROUTINE VENIPUNCTURE 08/04/2013 78883 MICRO ALBUMIN-IN HOUSE 08/04/2013 82363 A1C (IN-HOUSE) 08/04/2013 [id number] GFR CALC (RESULT ONLY) 08/04/2013 49314 CMP 08/04/2013 67610 LIPID PANEL 08/04/2013 06075 MICROALBUMIN 08/04/2013 50709 ROUTINE VENIPUNCTURE 02/08/2014 49089 A1C (IN-HOUSE) 02/08/2014 [id number] GFR CALC (RESULT ONLY) 02/08/2014 26175 CMP 02/08/2014 96336 LIPID PANEL 02/08/2014 Results Test Result Range Automated blood complete blood count (hemogram) panel - 10/03/16 03:20 Blood leukocytes automated count (number/volume) 9.7 10*3/uL 4.3-11.0 Blood erythrocytes automated count (number/volume) 4.19 10*6/uL 4.35-5.85 Venous blood hemoglobin measurement (mass/volume) 12.6 g/dL 11.5-16.0 Blood hematocrit (volume fraction) 38 % 35-52 Automated erythrocyte mean corpuscular volume 91 [foz_us] 80-99 Automated erythrocyte mean corpuscular hemoglobin (mass per erythrocyte) 30 pg 25-34 Automated erythrocyte mean corpuscular hemoglobin concentration measurement ( mass/volume) 33 g/dL 32-36 Automated erythrocyte distribution width ratio 14.1 % 10.0-14.5 Automated blood platelet count (count/volume) 172 10*3/uL 130-400 Automated blood platelet mean volume measurement 11.1 [foz_us] 7.4-10.4 Whole blood basic metabolic panel - 10/03/16 03:20 Serum or plasma sodium measurement (moles/volume) 139 mmol/L 135-145 Serum or plasma potassium measurement (moles/volume) 4.0 mmol/L 3.6-5.0 Serum or plasma chloride measurement (moles/volume) 109 mmol/L 98-107 Carbon dioxide 20 mmol/L 21-32 Serum or plasma anion gap determination (moles/volume) 10 mmol/L 5-14 Serum or plasma urea nitrogen measurement (mass/volume) 15 mg/dL 7-18 Serum or plasma creatinine measurement (mass/volume) 0.95 mg/dL 0.60-1.30 Serum or plasma urea nitrogen/creatinine mass ratio 16 NRG Serum or plasma creatinine measurement with calculation of estimated glomerular filtration rate 60 NRG Serum or plasma glucose measurement (mass/volume) 102 mg/dL 70-105 Serum or plasma calcium measurement (mass/volume) 9.3 mg/dL 8.5-10.1 Capillary blood glucose measurement by glucometer (mass/volume) - 10/03/16 10: 49 Capillary blood glucose measurement by glucometer (mass/volume) 119 mg/dL 70-110 Capillary blood glucose measurement by glucometer (mass/volume) - 10/03/16 16: 12 Capillary blood glucose measurement by glucometer (mass/volume) 91 mg/dL 70-110 Capillary blood glucose measurement by glucometer (mass/volume) - 10/03/16 21: 48 Capillary blood glucose measurement by glucometer (mass/volume) 94 mg/dL 70-110 Complete blood count (CBC) with automated white blood cell (WBC) differential - 10/04/16 05:24 Blood leukocytes automated count (number/volume) 9.2 10*3/uL 4.3-11.0 Blood erythrocytes automated count (number/volume) 4.26 10*6/uL 4.35-5.85 Venous blood hemoglobin measurement (mass/volume) 13.0 g/dL 11.5-16.0 Blood hematocrit (volume fraction) 39 % 35-52 Automated erythrocyte mean corpuscular volume 91 [foz_us] 80-99 Automated erythrocyte mean corpuscular hemoglobin (mass per erythrocyte) 31 pg 25-34 Automated erythrocyte mean corpuscular hemoglobin concentration measurement ( mass/volume) 33 g/dL 32-36 Automated erythrocyte distribution width ratio 14.4 % 10.0-14.5 Automated blood platelet count (count/volume) 154 10*3/uL 130-400 Automated blood platelet mean volume measurement 10.7 [foz_us] 7.4-10.4 Automated blood neutrophils/100 leukocytes 67 % 42-75 Automated blood lymphocytes/100 leukocytes 26 % 12-44 Blood monocytes/100 leukocytes 6 % 0-12 Automated blood eosinophils/100 leukocytes 2 % 0-10 Automated blood basophils/100 leukocytes 0 % 0-10 Blood neutrophils automated count (number/volume) 6.1 10*3 1.8-7.8 Blood lymphocytes automated count (number/volume) 2.4 10*3 1.0-4.0 Blood monocytes automated count (number/volume) 0.5 10*3 0.0-1.0 Automated eosinophil count 0.2 10*3/uL 0.0-0.3 Automated blood basophil count (count/volume) 0.0 10*3/uL 0.0-0.1 Comprehensive metabolic panel - 10/04/16 05:24 Serum or plasma sodium measurement (moles/volume) 140 mmol/L 135-145 Serum or plasma potassium measurement (moles/volume) 4.2 mmol/L 3.6-5.0 Serum or plasma chloride measurement (moles/volume) 110 mmol/L 98-107 Carbon dioxide 21 mmol/L 21-32 Serum or plasma anion gap determination (moles/volume) 9 mmol/L 5-14 Serum or plasma urea nitrogen measurement (mass/volume) 19 mg/dL 7-18 Serum or plasma creatinine measurement (mass/volume) 1.01 mg/dL 0.60-1.30 Serum or plasma urea nitrogen/creatinine mass ratio 19 NRG Serum or plasma creatinine measurement with calculation of estimated glomerular filtration rate 56 NRG Serum or plasma glucose measurement (mass/volume) 96 mg/dL 70-105 Serum or plasma calcium measurement (mass/volume) 9.3 mg/dL 8.5-10.1 Serum or plasma total bilirubin measurement (mass/volume) 0.4 mg/dL 0.1-1.0 Serum or plasma alkaline phosphatase measurement (enzymatic activity/volume) 131 U/L 40-136 Serum or plasma aspartate aminotransferase measurement (enzymatic activity/ volume) 69 U/L 5-34 Serum or plasma alanine aminotransferase measurement (enzymatic activity/volume ) 56 U/L 0-55 Serum or plasma protein measurement (mass/volume) 6.5 g/dL 6.4-8.2 Serum or plasma albumin measurement (mass/volume) 3.8 g/dL 3.2-4.5 Magnesium - 10/04/16 05:24 Magnesium 2.3 mg/dL 1.8-2.4 Lipid 1996 panel - 10/04/16 05:24 Serum or plasma triglyceride measurement (mass/volume) 136 mg/dL <150 Serum or plasma cholesterol measurement (mass/volume) 193 mg/dL < 200 Serum or plasma cholesterol in HDL measurement (mass/volume) 43 mg/ dL 40-60 Cholesterol in LDL [mass/volume] in serum or plasma by direct assay 131 mg/dL 1-129 Serum or plasma cholesterol in VLDL measurement (mass/volume) 27 mg/ dL 5-40 Capillary blood glucose measurement by glucometer (mass/volume) - 10/04/16 10: 51 Capillary blood glucose measurement by glucometer (mass/volume) 183 mg/dL 70-110 Complete blood count (CBC) with automated white blood cell (WBC) differential - 11/06/16 09:42 Blood leukocytes automated count (number/volume) 8.8 10*3/uL 4.3-11.0 Blood erythrocytes automated count (number/volume) 4.46 10*6/uL 4.35-5.85 Venous blood hemoglobin measurement (mass/volume) 13.4 g/dL 11.5-16.0 Blood hematocrit (volume fraction) 41 % 35-52 Automated erythrocyte mean corpuscular volume 92 [foz_us] 80-99 Automated erythrocyte mean corpuscular hemoglobin (mass per erythrocyte) 30 pg 25-34 Automated erythrocyte mean corpuscular hemoglobin concentration measurement ( mass/volume) 33 g/dL 32-36 Automated erythrocyte distribution width ratio 14.2 % 10.0-14.5 Automated blood platelet count (count/volume) 176 10*3/uL 130-400 Automated blood platelet mean volume measurement 11.0 [foz_us] 7.4-10.4 Automated blood neutrophils/100 leukocytes 71 % 42-75 Automated blood lymphocytes/100 leukocytes 21 % 12-44 Blood monocytes/100 leukocytes 4 % 0-12 Automated blood eosinophils/100 leukocytes 3 % 0-10 Automated blood basophils/100 leukocytes 0 % 0-10 Blood neutrophils automated count (number/volume) 6.3 10*3 1.8-7.8 Blood lymphocytes automated count (number/volume) 1.9 10*3 1.0-4.0 Blood monocytes automated count (number/volume) 0.4 10*3 0.0-1.0 Automated eosinophil count 0.3 10*3/uL 0.0-0.3 Automated blood basophil count (count/volume) 0.0 10*3/uL 0.0-0.1 Comprehensive metabolic panel - 11/06/16 09:42 Serum or plasma sodium measurement (moles/volume) 138 mmol/L 135-145 Serum or plasma potassium measurement (moles/volume) 4.1 mmol/L 3.6-5.0 Serum or plasma chloride measurement (moles/volume) 107 mmol/L 98-107 Carbon dioxide 22 mmol/L 21-32 Serum or plasma anion gap determination (moles/volume) 9 mmol/L 5-14 Serum or plasma urea nitrogen measurement (mass/volume) 29 mg/dL 7-18 Serum or plasma creatinine measurement (mass/volume) 1.03 mg/dL 0.60-1.30 Serum or plasma urea nitrogen/creatinine mass ratio 28 NRG Serum or plasma creatinine measurement with calculation of estimated glomerular filtration rate 54 NRG Serum or plasma glucose measurement (mass/volume) 124 mg/dL 70-105 Serum or plasma calcium measurement (mass/volume) 10.0 mg/dL 8.5-10.1 Serum or plasma total bilirubin measurement (mass/volume) 0.4 mg/dL 0.1-1.0 Serum or plasma alkaline phosphatase measurement (enzymatic activity/volume) 151 U/L 40-136 Serum or plasma aspartate aminotransferase measurement (enzymatic activity/ volume) 20 U/L 5-34 Serum or plasma alanine aminotransferase measurement (enzymatic activity/volume ) 40 U/L 0-55 Serum or plasma protein measurement (mass/volume) 7.5 g/dL 6.4-8.2 Serum or plasma albumin measurement (mass/volume) 4.4 g/dL 3.2-4.5 Magnesium - 11/06/16 09:42 Magnesium 2.4 mg/dL 1.8-2.4 Lipid 1996 panel - 11/06/16 09:42 Serum or plasma triglyceride measurement (mass/volume) 96 mg/dL <150 Serum or plasma cholesterol measurement (mass/volume) 163 mg/dL < 200 Serum or plasma cholesterol in HDL measurement (mass/volume) 49 mg/ dL 40-60 Cholesterol in LDL [mass/volume] in serum or plasma by direct assay 96 mg/dL 1-129 Serum or plasma cholesterol in VLDL measurement (mass/volume) 19 mg/ dL 5-40 Erythrocyte sedimentation rate by westergren method - 11/06/16 09:42 Erythrocyte sedimentation rate by westergren method 20 mm 0-30 THYROID STIMULATING HORMONE - 11/06/16 09:42 THYROID STIMULATING HORMONE 1.23 u[iU]/mL 0.35-4.94 Complete blood count (CBC) with automated white blood cell (WBC) differential - 12/15/16 13:54 Blood leukocytes automated count (number/volume) 7.2 10*3/uL 4.3-11.0 Blood erythrocytes automated count (number/volume) 4.39 10*6/uL 4.35-5.85 Venous blood hemoglobin measurement (mass/volume) 13.2 g/dL 11.5-16.0 Blood hematocrit (volume fraction) 40 % 35-52 Automated erythrocyte mean corpuscular volume 91 [foz_us] 80-99 Automated erythrocyte mean corpuscular hemoglobin (mass per erythrocyte) 30 pg 25-34 Automated erythrocyte mean corpuscular hemoglobin concentration measurement ( mass/volume) 33 g/dL 32-36 Automated erythrocyte distribution width ratio 14.3 % 10.0-14.5 Automated blood platelet count (count/volume) 175 10*3/uL 130-400 Automated blood platelet mean volume measurement 10.5 [foz_us] 7.4-10.4 Automated blood neutrophils/100 leukocytes 64 % 42-75 Automated blood lymphocytes/100 leukocytes 24 % 12-44 Blood monocytes/100 leukocytes 8 % 0-12 Automated blood eosinophils/100 leukocytes 3 % 0-10 Automated blood basophils/100 leukocytes 1 % 0-10 Blood neutrophils automated count (number/volume) 4.6 10*3 1.8-7.8 Blood lymphocytes automated count (number/volume) 1.7 10*3 1.0-4.0 Blood monocytes automated count (number/volume) 0.6 10*3 0.0-1.0 Automated eosinophil count 0.2 10*3/uL 0.0-0.3 Automated blood basophil count (count/volume) 0.0 10*3/uL 0.0-0.1 Whole blood basic metabolic panel - 12/15/16 13:54 Serum or plasma sodium measurement (moles/volume) 139 mmol/L 135-145 Serum or plasma potassium measurement (moles/volume) 3.9 mmol/L 3.6-5.0 Serum or plasma chloride measurement (moles/volume) 106 mmol/L 98-107 Carbon dioxide 23 mmol/L 21-32 Serum or plasma anion gap determination (moles/volume) 10 mmol/L 5-14 Serum or plasma urea nitrogen measurement (mass/volume) 16 mg/dL 7-18 Serum or plasma creatinine measurement (mass/volume) 0.98 mg/dL 0.60-1.30 Serum or plasma urea nitrogen/creatinine mass ratio 16 NRG Serum or plasma creatinine measurement with calculation of estimated glomerular filtration rate 58 NRG Serum or plasma glucose measurement (mass/volume) 131 mg/dL 70-105 Serum or plasma calcium measurement (mass/volume) 10.0 mg/dL 8.5-10.1 Serum or plasma uric acid measurement (mass/volume) - 12/15/16 13:54 Serum or plasma uric acid measurement (mass/volume) 5.7 mg/dL 2.6-7.2 Encounters ACCT No. Visit Date/Time Discharge Status Pt. Type Provider Facility Loc./Unit Complaint [id number] 08/07/2017 10:20:00 08/07/2017 23:59:59 CLS Outpatient FORREST SEGAL [facility] LAB I25.10 E78.4 [id number] 04/16/2017 11:33:00 04/16/2017 23:59:59 CLS Outpatient EMMANUEL MACHADO MD, FACC, FACP CCDS [facility] CARD CAD I25.10 [id number] 04/08/2017 11:11:00 04/08/2017 23:59:59 CLS Outpatient DENISE HILL MD R [facility] RAD R13.10 DYSPHAGIA [id number] 02/06/2017 11:18:00 02/06/2017 23:59:59 CLS Outpatient FORREST SEGAL [facility] LAB I25.10 E78.4 [id number] 12/15/2016 13:26:00 12/15/2016 14:35:00 DIS Emergency BRIAN JENKINS APRN [facility] ER L FOOT PAIN [id number] 11/06/2016 09:28:00 11/06/2016 23:59:59 CLS Outpatient EMMANUEL MACHADO MD, FACC, FACP CCDS [facility] LAB FATIGUE,CAD, HLP [id number] 10/08/2016 13:31:00 10/08/2016 23:59:59 CLS Outpatient FORREST SEGAL [facility] CARD CAD [id number] 10/02/2016 16:26:00 10/04/2016 13:20:00 DIS Outpatient EMMANUEL MACHADO MD, FACC FACP CCDS [facility] CATH STEMI [id number] 12/19/2012 09:34:00 12/19/2012 23:59:59 CLS Outpatient ANGI BO [facility] RAD CHRONIC SINUSITIS [id number] 02/08/2014 11:42:00 02/08/2014 23:59:59 CLS Outpatient HAWA CORREA DO [id number] 08/04/2013 10:17:00 08/04/2013 23:59:59 CLS Outpatient HAWA CORREA DO [id number] 06/03/2012 09:49:00 06/03/2012 23:59:59 CLS Outpatient [id number] 06/02/2012 10:48:00 06/02/2012 23:59:59 CLS Outpatient HAWA CORREA DO [id number] 12/15/2012 18:29:00 Document Registration [id number] 12/03/2012 10:35:00 Document Registration
[2017-09-15] MEDS ORDERED: ASPIRIN 81 MG CHEW (CHILDREN'S ASA) PO ONE (08:00)
[2017-09-15] MEDS ORDERED: NITROGLYCERIN 0.4 MG SL TABS BTL 25'S SL PRN ×2 (08:00→10:15)
[2017-09-15 08:02] LABS: BASOPHILS % (AUTO) 0 % (0-10); EOSINOPHILS # (AUTO) 0.2 10^3/uL (0.0-0.3); EOSINOPHILS % (AUTO) 2 % (0-10); HEMATOCRIT 42 % (35-52); HEMOGLOBIN 14.4 G/DL (11.5-16.0); LYMPHOCYTES # (AUTO) 1.7 X 10^3 (1.0-4.0); LYMPHOCYTES % (AUTO) 24 % (12-44); MEAN CORPUSCULAR HEMOGLOBIN 31 PG (25-34); MEAN CORPUSCULAR HGB CONC 35 G/DL (32-36); MEAN CORPUSCULAR VOLUME 90 FL (80-99); MEAN PLATELET VOLUME 10.7 FL (7.4-10.4); MONOCYTES # (AUTO) 0.4 X 10^3 (0.0-1.0); MONOCYTES % (AUTO) 6 % (0-12); NEUTROPHILS # (AUTO) 4.8 X 10^3 (1.8-7.8); NEUTROPHILS % (AUTO) 67 % (42-75); PLATELET COUNT 188 10^3/uL (130-400); RED BLOOD COUNT 4.59 10^6/uL (4.35-5.85); RED CELL DISTRIBUTION WIDTH 13.8 % (10.0-14.5); WHITE BLOOD COUNT 7.2 10^3/uL (4.3-11.0)
[2017-09-15 08:11] LABS: INR 0.9 (0.8-1.4); PROTHROMBIN TIME PATIENT 12.4 SEC (12.2-14.7)
[2017-09-15 08:21] LABS: ALANINE AMINOTRANSFERASE 53 U/L (0-55); ALBUMIN 4.6 GM/DL (3.2-4.5); ALKALINE PHOSPHATASE 165 U/L (40-136); BILIRUBIN,TOTAL 0.2 MG/DL (0.1-1.0); BUN/CREATININE RATIO 23; CALCIUM 10.6 MG/DL (8.5-10.1); CARBON DIOXIDE 19 MMOL/L (21-32); CHLORIDE 105 MMOL/L (98-107); CREATININE SERUM 1.21 MG/DL (0.60-1.30); GFR ESTIMATED 45; GLUCOSE 194 MG/DL (70-105); MAGNESIUM 2.5 MG/DL (1.8-2.4); SODIUM 137 MMOL/L (135-145); TOTAL PROTEIN 8.2 GM/DL (6.4-8.2)
--- NOTE | 2017-09-15 08:26 | ED Chest Pain ---
General Chief Complaint: Chest Pain Stated Complaint: BACK PAIN/CP Nursing Triage Note: c/o chest and left shoulder pain. Pt states she rolled over in bed and noticed her symptoms. Nursing Sepsis Screen: No Definite Risk Source: patient Exam Limitations: no limitations History of Present Illness Date Seen by Provider: Sep 15, 2017 Time Seen by Provider: 07:47 Initial Comments Here with report of onset of left shoulder pain and chest pain that started at 630 this morning. Pain radiates to her back. She reports that it 9 out of 10 pressure and pain. Denies shortness of breath, vomiting or diaphoresis. Has history of coronary intervention with stenting to the right coronary artery approximately one year ago. She does still smoke. Timing/Duration: 1 hour Severity/Quality: moderate, severe Location: central Radiation: shoulders, back Activities at Onset: none Prior CP/Workup: cardiac cath, echocardiography, heart attack ASA po ASSISTANT PROFESSOR OF BIOCHEMISTRY: No NTG SL ASSISTANT PROFESSOR OF BIOCHEMISTRY: No Associated Symptoms: back pain, No diaphoresis, No fatigue, No nausea/vomiting , No shortness of breath, No weakness Allergies and Home Medications Allergies Coded Allergies: acetaminophen (Unverified Allergy, Unknown, 10/02/16) Home Medications Amoxicillin/Potassium Clav 1 Each Tablet, 1 EACH PO BID, #14 Prescribed by: BRIAN JENKINS on 12/15/16 1356 Aspirin 81 Mg Tablet.dr, 81 MG PO DAILY, #90 Ref 5 Prescribed by: FORREST SEGAL on 10/04/16 1023 Atorvastatin Calcium 40 Mg Tablet, 40 MG PO HS, #30 Ref 5 Prescribed by: FORREST SEGAL on 10/04/16 1023 Clopidogrel Bisulfate 75 Mg Tablet, 75 MG PO DAILY, #90 Ref 3 Prescribed by: FORREST SEGAL on 10/04/16 1023 Lisinopril 5 Mg Tablet, 2.5 MG PO DAILY, #30 Ref 5 Prescribed by: FORREST SEGAL on 10/04/16 1023 Metoprolol Succinate 25 Mg Tab.er.24h, 12.5 MG PO DAILY, #30 Ref 5 Prescribed by: FORREST SEGAL on 10/04/16 1023 Multivitamin 1 Each Tablet, 1 TAB PO DAILY, (Reported) Alger 3 Polyunsat Fatty Acids 1,000 Mg Cap, 2,000 MG PO DAILY, (Reported) TAKES 2 (1000MG) CAPSULES Review of Systems Constitutional: see HPI, No chills, No fever EENTM: No Symptoms Reported Respiratory: No Symptoms Reported, Denies SOA at Rest, Denies Wheezing Cardiovascular: Chest Pain, Denies Edema, Denies Lightheadedness Gastrointestinal: No Symptoms Reported Genitourinary: No Symptoms Reported Musculoskeletal: no symptoms reported All Other Systems Reviewed Negative Unless Noted: Yes Past Mebkpby-Ruhnzu-Uuxlcn Hx Patient Social History Alcohol Use: Denies Use Recreational Drug Use: No Smoking Status: Current Everyday Smoker Type Used: Cigarettes Recent Foreign Travel: No Contact w/Someone Who Travel: No Recent Infectious Disease Expo: No Recent Hopitalizations: No Immunizations Up To Date Tetanus Booster (TDap): Unknown PED Vaccines UTD: No Seasonal Allergies Seasonal Allergies: No Surgeries History of Surgeries: Yes Respiratory History of Respiratory Disorde: No (Current smoker) Cardiovascular History of Cardiac Disorders: Yes Cardiac Disorders: Heart Attack, High Cholesterol, Hypertension Neurological History of Neurological Disord: No Reproductive System Sexually Transmitted Disease: No HIV/AIDS: No Genitourinary History of Genitourinary Disor: No Gastrointestinal History of Gastrointestinal Di: No Musculoskeletal History of Musculoskeletal Dis: No Endocrine History of Endocrine Disorders: Yes Endocrine Disorders: Diabetes, Non-Insulin dep HEENT History of HEENT Disorders: Yes Loss of Vision: Right Hearing Impairment: Hard of Hearing Cancer History of Cancer: No Psychosocial History of Psychiatric Problem: No Integumentary History of Skin or Integumenta: No Blood Transfusions History of Blood Disorders: No Adverse Reaction to a Blood Tr: No Reviewed Nursing Assessment Reviewed/Agree w Nursing PMH: Yes Family Medical History Family Medial History: Alzheimer's disease 19 FATHER Breast malignancy G8 SISTER COPD (chronic obstructive pulmonary disease) G8 BROTHER Cardiomegaly 19 MOTHER, Onset:46 Cardiovascular disease G8 BROTHER G8 SISTER Diabetes mellitus 19 MOTHER Hypertension 19 MOTHER Myocardial infarction G8 BROTHER ( age 46 ) G8 BROTHER Prostate cancer 19 FATHER Uterine cancer Physical Exam Vital Signs Vital Signs - First Documented 09/15/17 07:43 Temp 98.6 Pulse 77 Resp 18 B/P (MAP) 144/75 (98) Pulse Ox 94 O2 Delivery Room Air Capillary Refill : Less Than 3 Seconds General Appearance: WD/WN, Mild Distress HEENT: PERRL/EOMI, Pharynx Normal Neck: Non Tender, Supple Respiratory: Lungs Clear, Normal Breath Sounds Cardiovascular: Regular Rate, Rhythm, No Murmur Gastrointestinal: Non Tender, Soft Extremity: Normal Range of Motion, Non Tender Neurologic/Psychiatric: Alert, Oriented x3 Skin: Normal Color, Warm/Dry Progress/Results/Core Measures Results/Orders Lab Results Laboratory Tests Test 09/15/17 07:45 Range/Units White Blood Count 7.2 4.3-11.0 10^3/uL Red Blood Count 4.59 4.35-5.85 10^6/uL Hemoglobin 14.4 11.5-16.0 G/DL Hematocrit 42 35-52 % Mean Corpuscular Volume 90 80-99 FL Mean Corpuscular Hemoglobin 31 25-34 PG Mean Corpuscular Hemoglobin Concent 35 32-36 G/DL Red Cell Distribution Width 13.8 10.0-14.5 % Platelet Count 188 130-400 10^3/uL Mean Platelet Volume 10.7 H 7.4-10.4 FL Neutrophils (%) (Auto) 67 42-75 % Lymphocytes (%) (Auto) 24 12-44 % Monocytes (%) (Auto) 6 0-12 % Eosinophils (%) (Auto) 2 0-10 % Basophils (%) (Auto) 0 0-10 % Neutrophils # (Auto) 4.8 1.8-7.8 X 10^3 Lymphocytes # (Auto) 1.7 1.0-4.0 X 10^3 Monocytes # (Auto) 0.4 0.0-1.0 X 10^3 Eosinophils # (Auto) 0.2 0.0-0.3 10^3/uL Basophils # (Auto) 0.0 0.0-0.1 10^3/uL Prothrombin Time 12.4 12.2-14.7 SEC INR Comment 0.9 0.8-1.4 Activated Partial Thromboplast Time 26 24-35 SEC D-Dimer 1.02 H 0.00-0.49 UG/ML Sodium Level 137 135-145 MMOL/L Potassium Level 4.0 3.6-5.0 MMOL/L Chloride Level 105 98-107 MMOL/L Carbon Dioxide Level 19 L 21-32 MMOL/L Anion Gap 13 5-14 MMOL/L Blood Urea Nitrogen 28 H 7-18 MG/DL Creatinine 1.21 0.60-1.30 MG/DL Estimat Glomerular Filtration Rate 45 BUN/Creatinine Ratio 23 Glucose Level 194 H 70-105 MG/DL Calcium Level 10.6 H 8.5-10.1 MG/DL Magnesium Level 2.5 H 1.8-2.4 MG/DL Total Bilirubin 0.2 0.1-1.0 MG/DL Aspartate Amino Transf (AST/SGOT) 33 5-34 U/L Alanine Aminotransferase (ALT/SGPT) 53 0-55 U/L Alkaline Phosphatase 165 H 40-136 U/L Myoglobin 44.4 10.0-92.0 NG/ML Troponin I < 0.30 <0.30 NG/ML Total Protein 8.2 6.4-8.2 GM/DL Albumin 4.6 H 3.2-4.5 GM/DL My Orders Orders - DEBBIE NGUYEN MD Cbc With Automated Diff (09/15/17 07:47) Magnesium (09/15/17 07:47) Chest 1 View, Ap/Pa Only (09/15/17 07:47) Ekg Tracing (09/15/17 07:47) Cardiac Profile 1 (09/15/17 07:47) Comprehensive Metabolic Panel (09/15/17 07:47) Myoglobin Serum (09/15/17 07:47) Protime With Inr (09/15/17 07:47) Partial Thromboplastin Time (09/15/17 07:47) O2 (09/15/17 07:47) Monitor-Rhythm Ecg Trace Only (09/15/17 07:47) Lipid Panel (09/16/17 06:00) Aspirin Chewable Tablet (Baby Aspirin Ch (09/15/17 08:00) Nitroglycerin 0.4 Mg Btl 25's (Nitrostat (09/15/17 08:00) Saline Lock/Iv-Start (09/15/17 07:47) Fibrin Degradation Products (09/15/17 07:51) Morphine Injection (Morphine Injection (09/15/17 08:37) Enoxaparin Injection (Lovenox Injection) (09/15/17 08:45) Morphine Injection (Morphine Injection (09/15/17 08:51) Medications Given in ED Current Medications Medications Dose Ordered Sig/Salma Route Start Time Stop Time Status Last Admin Dose Admin Aspirin 324 mg ONCE ONCE PO 09/15/17 08:00 09/15/17 08:01 DC 09/15/17 07:52 324 MG Nitroglycerin 0.4 mg UD PRN SL 09/15/17 08:00 09/15/17 07:53 0.4 MG Vital Signs/I&O Vital Sign - Last 12Hours 09/15/17 09/15/17 09/15/17 07:43 07:52 08:42 Temp 98.6 98.6 98.6 Pulse 77 Resp 18 B/P (MAP) 144/75 (98) Pulse Ox 94 O2 Delivery Room Air Blood Pressure Mean: 98 Progress Note : Progress Note Seen and evaluated. list reviewed. IV, labs, EKG and chest x-ray ordered. ASA 324 mg by mouth ordered. Nitroglycerin sublingual ordered for pain. 0824. Patient has not had relief with nitroglycerin as of yet. Monitor patient. Repeat nitroglycerin was not affected. Morphine 2 mg IV given. Repeat morphine 4 mg IV given at 0900. I did discuss the case with Dr. Hill at 0846 and we will admit patient for further evaluation. I did discuss the case with Dr. Reyes at 0841, on-call for Dr. Mathew. Patient's d-dimer was slightly elevated. We will initiate Lovenox treatment. GFR does not allow for CT angiogram currently. Dr. Reyes did see the patient in the ER and agrees with Lovenox treatment. Admit, observation status. Patient and family agree with plan. ECG Initial ECG Impression Date: Sep 15, 2017 Initial ECG Impression Time: 07:47 Initial ECG Rate: 77 Initial ECG Rhythm: Normal Sinus Comment Sinus arrhythmia with PVCs. Left axis deviation. No evidence of ST elevation PA. Overall similar to previous of 03 October 2016. Interpreted by me. Diagnostic Imaging Diagonstic Imaging: Xray Plain Films/CT/US/NM/MRI: chest Comments [facility]IA [facility], [facility]. [place], [place] NAME: JEFFRY DYE [facility] REC#: [id number] PT STATUS: REG ER : 1955 PHYSICIAN: DEBBIE NGUYEN MD ADMIT DATE: 09/15/17/ER Draft Date of Exam:09/15/17 CHEST 1 VIEW, AP/PA ONLY INDICATION: Chest pain Portable chest 0839 AM Heart size and pulmonary vascularity are normal. Lungs are clear. There are no effusions or pneumothoraces. IMPRESSION: Negative chest Dictated on workstation # [id number] Dict: 09/15/17 0843 Trans: 09/15/17 0855 [facility] [phone] Interpreted by: DEBBIE WINKLER MD Electronically signed by: Departure Communication (Admissions) Time/Spoke to Admitting Phy: 08:46 Time/Spoke to Consulting Phy: 08:41 Impression Impression: Primary Impression: Chest pain Qualified Codes: R07.9 - Chest pain, unspecified Additional Impressions: Left shoulder pain Qualified Codes: M25.512 - Pain in left shoulder Elevated d-dimer Disposition: ADMITTED INPATIENT Condition: Stable Admissions Decision to Admit Reason: Admit from ER (General) Decision to Admit/Date: Sep 15, 2017 Time/Decision to Admit Time: 08:41 Departure-Patient Inst. Referrals: DENISE HILL MD (PCP/Family) Primary Care Physician DEBBIE NGUYEN MD Sep 15, 2017 08:26
[2017-09-15 08:28] LABS: MYOGLOBIN SERUM 44.4 NG/ML (10.0-92.0)
[2017-09-15] MEDS ORDERED: morphine INJ 10 MG/ML 1ML (SYR OR VIAL) IVP STA ×2 (08:37→08:51)
[2017-09-15] MEDS ORDERED: ENOXAPARIN 100 MG/1 ML (LOVENOX) SYR SC ONE (08:45)
--- NOTE | 2017-09-15 08:55 | Diagnostic Imaging Report ---
INDICATION: Chest pain Portable chest 0839 AM Heart size and pulmonary vascularity are normal. Lungs are clear. There are no effusions or pneumothoraces. IMPRESSION: Negative chest Dictated by: Dictated on workstation # [id number]
--- OUTSIDE RECORDS SUMMARY | 2017-09-15 09:18 | XMS REPORT | Continuity of Care Document ---
Author Author [facility] Organization [facility] Address Unknown Phone Unavailable Allergies Active Description [...] mg Tablet Drug Allergy 03/06/2012 Yes acetaminophen [id number] Drug Allergy Unknown N/A 10/02/2016 Medications There [...] PAIN IN JOINT SITE UNSPECIFIED 10/02/2016 ANGI OB Ot 461.9 ACUTE SINUSITIS NOS 10/04/2016 JEANNETTE MOSS FACC, ALI FACP CCDS Ot E11.9 TYPE 2 DIABETES MELLITUS WITHOUT COMPLIC 10/04/2016 JEANNETTE MOSS FACC, ALI FACP CCDS Ot I21.19 STEMI INVOLVING OT CORONARY ARTERY OF I 10/04/2016 JEANNETTE MOSS FACC, ALI FACP CCDS Ot I25.10 ATHSCL HEART DISEASE OF [place] CORONARY 10/04/2016 JEANNETTE MOSS FACC, ALI FACP CCDS Ot I25.5 ISCHEMIC CARDIOMYOPATHY 10/04/2016 JEANNETTE MOSS FACC, ALI FACP CCDS Ot I47.2 VENTRICULAR TACHYCARDIA 10/04/2016 JEANNETTE MOSS FACC, ALI FACP CCDS Ot Z72.0 TOBACCO USE 10/04/2016 JEANNETTE MOSS FACC, ALI FACP CCDS Ot Z91.19 PATIENT'S NONCOMPLIANCE W OT MEDICAL TR 10/05/2016 ANGI BO Ot 461.9 ACUTE SINUSITIS NOS 10/05/2016 ANGI BO Ot 461.9 ACUTE SINUSITIS NOS 10/08/2016 ANGI BO Ot 461.9 ACUTE SINUSITIS NOS 10/09/2016 FORREST SEGALP Ot I25.10 ATHSCL HEART DISEASE OF [place] CORONARY 10/09/2016 BAIMA, FORREST L ENROLLMENT SPECIALIST Ot I25.5 ISCHEMIC CARDIOMYOPATHY 10/09/2016 BAIMA, FORREST L ENROLLMENT SPECIALIST Ot I25.10 ATHSCL HEART DISEASE OF [place] CORONARY 10/09/2016 BAIMA, FORREST L ENROLLMENT SPECIALIST Ot I25.5 ISCHEMIC CARDIOMYOPATHY 10/10/2016 BAIMA, FORREST L ENROLLMENT SPECIALIST Ot I25.10 ATHSCL HEART DISEASE OF [place] CORONARY 10/10/2016 BAIMA, FORREST L ENROLLMENT SPECIALIST Ot I25.5 ISCHEMIC CARDIOMYOPATHY 10/30/2016 BAIMA, FORREST L ENROLLMENT SPECIALIST Ot I25.10 ATHSCL HEART DISEASE OF [place] CORONARY 10/30/2016 BAIMA, FORREST L ENROLLMENT SPECIALIST Ot I25.5 ISCHEMIC CARDIOMYOPATHY 10/30/2016 ANGI BO Ot 461.9 ACUTE SINUSITIS NOS 10/30/2016 BAIMA, FORREST L ENROLLMENT SPECIALIST Ot I25.10 ATHSCL HEART DISEASE OF [place] CORONARY 10/30/2016 BAIMA, FORREST L ENROLLMENT SPECIALIST Ot I25.5 ISCHEMIC CARDIOMYOPATHY 11/06/2016 ANGI BO Ot 461.9 ACUTE SINUSITIS NOS 11/06/2016 BAIMA, FORREST L ENROLLMENT SPECIALIST Ot I25.10 ATHSCL HEART DISEASE OF [place] CORONARY 11/06/2016 BAIMA, FORREST L ENROLLMENT SPECIALIST Ot I25.5 ISCHEMIC CARDIOMYOPATHY 11/07/2016 JEANNETTE MOSS FACC, EMMANUEL FACP CCDS Ot E78.4 OTHER HYPERLIPIDEMIA 11/07/2016 JEANNETTE MOSS FACC, ALI FACP CCDS Ot I25.10 ATHSCL HEART DISEASE OF [place] CORONARY 11/07/2016 JEANNETTE MOSS FACC, ALI FACP CCDS Ot R53.83 OTHER FATIGUE 11/07/2016 JEANNETTE MOSS FACC, ALI FACP CCDS Ot Z72.0 TOBACCO USE 11/19/2016 JEANNETTE MOSS FACC, ALI FACP CCDS Ot E78.4 OTHER HYPERLIPIDEMIA 11/19/2016 JEANNETTE MOSS FACC, ALI FACP CCDS Ot I25.10 ATHSCL HEART DISEASE OF [place] CORONARY 11/19/2016 JEANNETTE MOSS FACC, ALI FACP CCDS Ot R53.83 OTHER FATIGUE 11/19/2016 JEANNETTE MOSS FACC, ALI FACP CCDS Ot Z72.0 TOBACCO USE 12/15/2016 BRIAN JENKINS APRN Ot E11.9 TYPE 2 DIABETES MELLITUS WITHOUT COMPLIC 12/15/2016 BRIAN JENKINS INTER COM INSTALLER Ot F17.210 NICOTINE DEPENDENCE, CIGARETTES, UNCOMPL 12/15/2016 BRIAN JENKINS INTER COM INSTALLER Ot I10 ESSENTIAL (PRIMARY) HYPERTENSION 12/15/2016 BRIAN JENKINS INTER COM INSTALLER Ot I25.2 OLD MYOCARDIAL INFARCTION 12/15/2016 BRIAN JENKINS INTER COM INSTALLER Ot 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, LEFT ANKLE AND FOOT 12/15/2016 BRIAN JENKINS INTER COM INSTALLER Ot M79.672 PAIN IN LEFT FOOT 12/15/2016 BRIAN JENKINS INTER COM INSTALLER Ot Z79.02 RN ENDOSCOPY (CURRENT) USE OF 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 12/15/2016 BRIAN JENKINS INTER COM INSTALLER Ot Z79.899 OTHER LONG-TERM (CURRENT) DRUG THERAPY 12/16/2016 ANGI BO Ot 461.9 ACUTE SINUSITIS NOS 12/16/2016 FORRSET SEGAL ENROLLMENT SPECIALIST Ot I25.10 ATHSCL HEART DISEASE OF [place] CORONARY 12/16/2016 FORREST SEGAL ENROLLMENT SPECIALIST Ot I25.5 ISCHEMIC CARDIOMYOPATHY 12/16/2016 JEANNETTE MOSS FACC, ALI FACP CCDS Ot E78.4 OTHER HYPERLIPIDEMIA 12/16/2016 JEANNETTE MOSS FACC, ALI FACP CCDS Ot I25.10 ATHSCL HEART DISEASE OF [place] CORONARY 12/16/2016 JEANNETTE MOSS FACC, ALI FACP CCDS Ot R53.83 OTHER FATIGUE 12/16/2016 JEANNETTE MOSS FACC, ALI FACP CCDS Ot Z72.0 TOBACCO USE 12/20/2016 BRIAN JENKINS INTER COM INSTALLER Ot E11.9 TYPE 2 DIABETES MELLITUS WITHOUT COMPLIC 12/20/2016 BRIAN JENKINS INTER COM INSTALLER Ot F17.210 NICOTINE DEPENDENCE, CIGARETTES, UNCOMPL 12/20/2016 BRIAN JENKINS INTER COM INSTALLER Ot I10 ESSENTIAL (PRIMARY) HYPERTENSION 12/20/2016 BRIAN JENKINS INTER COM INSTALLER Ot I25.2 OLD MYOCARDIAL INFARCTION 12/20/2016 BRIAN JENKINS APRN Ot 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, LEFT ANKLE AND FOOT 12/20/2016 BRIAN JENKINS APRN Ot M79.672 PAIN IN LEFT FOOT 12/20/2016 BRIAN JENKINS APRN Ot Z79.02 RN ENDOSCOPY (CURRENT) USE OF 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 12/20/2016 BRIAN JENKINS APRN Ot Z79.899 OTHER LONG-TERM (CURRENT) DRUG THERAPY 01/03/2017 ANGI BO Ot 461.9 ACUTE SINUSITIS NOS 01/03/2017 BAIMA, FORREST L ENROLLMENT SPECIALIST Ot I25.10 ATHSCL HEART DISEASE OF [place] CORONARY 01/03/2017 BAIMA, FORREST L ENROLLMENT SPECIALIST Ot I25.5 ISCHEMIC CARDIOMYOPATHY 01/03/2017 JEANNETTE MOSS FACC, ALI FACP CCDS Ot E78.4 OTHER HYPERLIPIDEMIA 01/03/2017 JEANNETTE MOSS FACC, ALI FACP CCDS Ot I25.10 ATHSCL HEART DISEASE OF [place] CORONARY 01/03/2017 JEANNETTE MOSS FACC, ALI FACP CCDS Ot R53.83 OTHER FATIGUE 01/03/2017 JEANNETTE MOSS FACC, ALI FACP CCDS Ot Z72.0 TOBACCO USE 02/06/2017 ANGI BO Ot 461.9 ACUTE SINUSITIS NOS 02/06/2017 BAIMA, FORREST L ENROLLMENT SPECIALIST Ot I25.10 ATHSCL HEART DISEASE OF [place] CORONARY 02/06/2017 BAIMA, FORREST L ENROLLMENT SPECIALIST Ot I25.5 ISCHEMIC CARDIOMYOPATHY 02/06/2017 JEANNETTE MOSS FACC, ALI FACP CCDS Ot E78.4 OTHER HYPERLIPIDEMIA 02/06/2017 JEANNETTE MOSS FACC, ALI FACP CCDS Ot I25.10 ATHSCL HEART DISEASE OF [place] CORONARY 02/06/2017 JEANNETTE MOSS FACC, ALI FACP CCDS Ot R53.83 OTHER FATIGUE 02/06/2017 JEANNETTE MOSS FACC, ALI FACP CCDS Ot Z72.0 TOBACCO USE 02/13/2017 BAIMA, FORREST L ENROLLMENT SPECIALIST Ot E78.4 OTHER HYPERLIPIDEMIA 02/13/2017 BAIMA, FORREST L ENROLLMENT SPECIALIST Ot I25.10 ATHSCL HEART DISEASE OF [place] CORONARY 04/08/2017 ANGI BO Ot 461.9 ACUTE SINUSITIS NOS 04/08/2017 BAIMA, FORREST L ENROLLMENT SPECIALIST Ot I25.10 ATHSCL HEART DISEASE OF [place] CORONARY 04/08/2017 BAIMA, FORREST L ENROLLMENT SPECIALIST Ot I25.5 ISCHEMIC CARDIOMYOPATHY 04/08/2017 JEANNETTE MOSS FACC, ALI FACP CCDS Ot E78.4 OTHER HYPERLIPIDEMIA 04/08/2017 JEANNETTE MOSS FACC, ALI FACP CCDS Ot I25.10 ATHSCL HEART DISEASE OF [place] CORONARY 04/08/2017 JEANNETTE MOSS [facility], ALI FACP CCDS Ot R53.83 OTHER FATIGUE 04/08/2017 JEANNETTE MOSS FACC, ALI FACP CCDS Ot Z72.0 TOBACCO USE 04/08/2017 BAIMAFORREST L ENROLLMENT SPECIALIST Ot E78.4 OTHER HYPERLIPIDEMIA 04/08/2017 BAIMA, FORREST L ENROLLMENT SPECIALIST Ot I25.10 ATHSCL HEART DISEASE OF [place] CORONARY 04/24/2017 LIZ MOSS, DENISE Fraser Ot R13.10 DYSPHAGIA, UNSPECIFIED 04/24/2017 JEANNETTE MOSS [facility], ALI FACP CCDS Ot E78.4 OTHER HYPERLIPIDEMIA 04/24/2017 JEANNETTE MOSS FACC, ALI FACP CCDS Ot I25.10 ATHSCL HEART DISEASE OF [place] CORONARY 04/24/2017 JEANNETTE MOSS FACC, ALI FACP CCDS Ot Z72.0 TOBACCO USE 08/09/2017 BAIMA FORREST L ENROLLMENT SPECIALIST Ot E78.4 OTHER HYPERLIPIDEMIA 08/09/2017 BAIMA FORREST L ENROLLMENT SPECIALIST Ot I25.10 ATHSCL HEART DISEASE OF [place] CORONARY Procedures Code Description [place] [address] ROUTINE VENIPUNCTURE 06/02/2012 80000 A1C (IN-HOUSE) 06/02/2012 94617 MICRO ALBUMIN-IN HOUSE 06/02/2012 78722 CMP 06/02/2012 60509 LIPID PANEL 06/02/2012 [id number] GFR CALC (RESULT ONLY) 06/02/2012 67564 ROUTINE VENIPUNCTURE 12/03/2012 88069 A1C (IN-HOUSE) 12/03/2012 73324 CMP 12/03/2012 03363 LIPID PANEL 12/03/2012 [id number] GFR CALC (RESULT ONLY) 12/03/[address] SINUS W/O CONTRAST 12/15/2012 57894 ROUTINE VENIPUNCTURE 08/04/2013 33234 MICRO ALBUMIN-IN HOUSE 08/04/2013 01323 A1C (IN-HOUSE) 08/04/2013 8039001 GFR CALC (RESULT ONLY) 08/04/2013 72411 CMP 08/04/2013 32916 LIPID PANEL 08/04/2013 68097 MICROALBUMIN 08/04/2013 49679 ROUTINE VENIPUNCTURE 02/08/2014 77366 A1C (IN-HOUSE) 02/08/2014 2567474 GFR CALC (RESULT ONLY) 02/08/2014 40313 CMP 02/08/2014 40734 LIPID PANEL 02/08/2014 Results Test Result Range [...] Status Pt. Type Provider Facility Loc./Unit Complaint [id number] 08/07/2017 10:20:00 08/07/2017 23:59:59 CLS Outpatient FORREST SEGAL [facility] LAB I25.10 E78.4 [id number] 04/16/2017 11:33:00 04/16/2017 23:59:59 CLS Outpatient EMAMNUEL MACHADO MD, FACC, FACP CCDS [facility] CARD CAD I25.10 [id number] 04/08/2017 11:11:00 04/08/2017 23:59:59 CLS Outpatient DENISE HILL MD R [facility] RAD R13.10 DYSPHAGIA [id number] 02/06/2017 11:18:00 02/06/2017 23:59:59 CLS Outpatient FORREST SEGAL [facility] LAB I25.10 E78.4 [id number] 12/15/2016 13:26:00 12/15/2016 14:35:00 DIS Emergency BRIAN JENKINS APRN [facility] ER L FOOT PAIN [id number] 11/06/2016 09:28:00 11/06/2016 23:59:59 CLS Outpatient EMMANUEL MACHADO MD, FACC, FACP CCDS [facility] LAB FATIGUE,CAD, HLP [id number] 10/08/2016 13:31:00 10/08/2016 23:59:59 CLS Outpatient FORREST SEGAL [facility] CARD CAD [id number] 10/02/2016 16:26:00 10/04/2016 13:20:00 DIS Outpatient EMMANUEL MACHADO MD, FACC FACP CCDS [facility] CATH STEMI [id number] 12/19/2012 09:34:00 12/19/2012 23:59:59 CLS Outpatient ANGI BO [facility] RAD CHRONIC SINUSITIS [id number] 02/08/2014 11:42:00 02/08/2014 23:59:59 CLS Outpatient HAWA CORREA DO [id number] 08/04/2013 10:17:00 08/04/2013 23:59:59 CLS Outpatient HAWA CORREA DO [id number] 06/03/2012 09:49:00 06/03/2012 23:59:59 CLS Outpatient [id number] 06/02/2012 10:48:00 06/02/2012 23:59:59 CLS Outpatient HAWA CORREA DO [id number] 12/15/2012 18:29:00 Document Registration [id number] 12/03/2012 10:35:00 Document Registration
[2017-09-15] MEDS ORDERED: fentaNYL INJECTION 100 MCG/2 ML AMP IVP STA (09:37)
[2017-09-15 09:50] VITALS: BP 132/88
[2017-09-15] MEDS ORDERED: NS IV 1000 ML 1,000 ML IV SCH (10:15)
[2017-09-15] MEDS ORDERED: morphine INJ 4 MG/ML 1 ML (VIAL/SYRINGE) IV PRN (10:15)
--- NOTE | 2017-09-15 10:24 | Consultation-Cardiology ---
HPI-Cardiology Cardiology Consultation Date of Consultation 09/15/17 Date of Admission Time Seen by Provider: 09:00 Indication: Chest pain HPI 62 years old lady with history of coronary artery disease had myocardial infarction September 2016. Had 2 stents to the right coronary artery. Was in her usual state of health started having neck discomfort and left shoulder pain and had retrosternal chest pain. Came into the emergency room and improved her chest pain with sublingual nitroglycerin, her shoulder pain appeared to be musculoskeletal related to movement of her shoulder. She reported significant heartburn for the past 2 days. She denied any palpitation, diaphoresis, syncope or near syncopal episodes. Home Medications & Allergies Allergies: Coded Allergies: acetaminophen (Unverified Allergy, Unknown, 10/02/16) Home Medication List Reviewed: Yes AYA-Opykke-Ytiezv Hx Patient Social History Marital Status: Alcohol Use: Denies Use Recreational Drug Use: No Smoking Status: Current Everyday Smoker Type Used: Cigarettes Recent Foreign Travel: No Recent Infectious Disease Expo: No Recent [place]izations: [place] last [place]) Physical Abuse Screen: No Sexual Abuse: No Immunizations Up To Date Tetanus Booster (TDap): Unknown Past Medical History Past medical history as discussed below Family Medical History Family History: Alzheimer's disease 19 FATHER Breast malignancy G8 SISTER COPD (chronic obstructive pulmonary disease) G8 BROTHER Cardiomegaly 19 MOTHER, Onset:46 Cardiovascular disease G8 BROTHER G8 SISTER Diabetes mellitus 19 MOTHER Hypertension 19 MOTHER Myocardial infarction G8 BROTHER ( age 46 ) G8 BROTHER Prostate cancer 19 FATHER Uterine cancer Constitutional: see HPI EENTM: see HPI Respiratory: see HPI, No cough, No dyspnea on exertion, No hemoptysis, No orthopnea, No phlegm, No short of breath, No stridor, No wheezing, No other Cardiovascular: see HPI, chest pain, No edema, No Hx of Intervention, No palpitations, No syncope, No vascular heart diseas, No other Gastrointestinal: see HPI, heartburn Genitourinary: no symptoms reported, see HPI Musculoskeletal: see HPI, back pain, joint pain (Left shoulder pain), neck pain Skin: no symptoms reported, see HPI Psychiatric/Neurological: No Symptoms Reported, See HPI Reviewed Test Results Reviewed Test Results Lab Laboratory Tests Test 09/15/17 07:45 Range/Units White Blood Count 7.2 4.3-11.0 10^3/uL Red Blood Count 4.59 4.35-5.85 10^6/uL Hemoglobin 14.4 11.5-16.0 G/DL Hematocrit 42 35-52 % Mean Corpuscular Volume 90 80-99 FL Mean Corpuscular Hemoglobin 31 25-34 PG Mean Corpuscular Hemoglobin Concent 35 32-36 G/DL Red Cell Distribution Width 13.8 10.0-14.5 % Platelet Count 188 130-400 10^3/uL Mean Platelet Volume 10.7 H 7.4-10.4 FL Neutrophils (%) (Auto) 67 42-75 % Lymphocytes (%) (Auto) 24 12-44 % Monocytes (%) (Auto) 6 0-12 % Eosinophils (%) (Auto) 2 0-10 % Basophils (%) (Auto) 0 0-10 % Neutrophils # (Auto) 4.8 1.8-7.8 X 10^3 Lymphocytes # (Auto) 1.7 1.0-4.0 X 10^3 Monocytes # (Auto) 0.4 0.0-1.0 X 10^3 Eosinophils # (Auto) 0.2 0.0-0.3 10^3/uL Basophils # (Auto) 0.0 0.0-0.1 10^3/uL Prothrombin Time 12.4 12.2-14.7 SEC INR Comment 0.9 0.8-1.4 Activated Partial Thromboplast Time 26 24-35 SEC D-Dimer 1.02 H 0.00-0.49 UG/ML Sodium Level 137 135-145 MMOL/L Potassium Level 4.0 3.6-5.0 MMOL/L Chloride Level 105 98-107 MMOL/L Carbon Dioxide Level 19 L 21-32 MMOL/L Anion Gap 13 5-14 MMOL/L Blood Urea Nitrogen 28 H 7-18 MG/DL Creatinine 1.21 0.60-1.30 MG/DL Estimat Glomerular Filtration Rate 45 BUN/Creatinine Ratio 23 Glucose Level 194 H 70-105 MG/DL Calcium Level 10.6 H 8.5-10.1 MG/DL Magnesium Level 2.5 H 1.8-2.4 MG/DL Total Bilirubin 0.2 0.1-1.0 MG/DL Aspartate Amino Transf (AST/SGOT) 33 5-34 U/L Alanine Aminotransferase (ALT/SGPT) 53 0-55 U/L Alkaline Phosphatase 165 H 40-136 U/L Myoglobin 44.4 10.0-92.0 NG/ML Troponin I < 0.30 <0.30 NG/ML Total Protein 8.2 6.4-8.2 GM/DL Albumin 4.6 H 3.2-4.5 GM/DL Physical Exam Vital Signs Vital Signs - First Documented 09/15/17 07:43 Temp 98.6 Pulse 77 Resp 18 B/P (MAP) 144/75 (98) Pulse Ox 94 O2 Delivery Room Air Capillary Refill : Less Than 3 Seconds General Appearance: No Apparent Distress, WD/WN Eyes: Bilateral Eye Normal Inspection, Bilateral Eye PERRL, Bilateral Eye EOMI HEENT: PERRL/EOMI, TMs Normal, Normal ENT Inspection, Pharynx Normal Neck: Full Range of Motion, Normal Inspection, Non Tender, Supple, Carotid Bruit Respiratory: Chest Non Tender, Lungs Clear, Normal Breath Sounds, No Accessory Muscle Use, No Respiratory Distress Cardiovascular: Regular Rate, Rhythm, No Edema, No Gallop, No JVD, No Murmur, Normal Peripheral Pulses Gastrointestinal: Normal Bowel Sounds, No Organomegaly, No Pulsatile Mass, Non Tender, Soft Back: Normal Inspection, No CVA Tenderness, No Vertebral Tenderness Extremity: Normal Capillary Refill, Normal Inspection, Normal Range of Motion, Non Tender, No Calf Tenderness, No Pedal Edema Neurologic/Psychiatric: Alert, Oriented x3, No Motor/Sensory Deficits, Normal Mood/Affect Skin: Normal Color, Warm/Dry Lymphatic: No Adenopathy A/P-Cardiology Admission Diagnosis Chest pain nonspecific etiology Shoulder pain Coronary artery disease Congestive heart failure Assessment/Plan Chest pain nonspecific etiology resolved after one sublingual nitroglycerin, cardiac enzymes and EKG were negative. Patient had a stress test in March 2017 showing no ischemia. Continue to monitor chronic enzymes and EKG. Epigastric pain, gastroesophageal reflux disease, had barium swallow in March 2017 that was normal. Start PPI and monitor. Left shoulder pain, significant discomfort with movement of the left shoulder. Managed by primary care physician next Coronary artery disease history of myocardial infarction in September 2016 had right coronary artery stent using Alpine 3.020 mm proximally and 3.028 mm at the mid vessel nonoverlapping. Had moderate diffuse disease with 60 percent mid LAD, 80 percent OM1 that was fairly small artery. Treated conservatively. Last stress test in March 2017 showing no ischemia or infarction Congestive heart failure, chronic compensated left ventricular systolic dysfunction, ischemic cardiomyopathy, ejection fraction 40 percent. On stress test her ejection fraction was 66 percent, we will reevaluate echocardiogram in the morning. Tobaccoism, educated on smoking cessation Generalized fatigue and loss of energy improved after stopping beta blockers. Intolerant to beta gilma due to fatigue. Hyperlipidemia, maintained on statin Mild bilateral carotid stenosis, ultrasound was done in October 2016 Patient has been followed as an outpatient by Dr. Mathew Clinical Quality Measures AMI/AHF: ASA po Prior to arrival: No DVT/VTE Risk/Contraindication: Risk Factor Score Per Nursin RFS Level Per Nursing on Admit: 4+=Very High HERBER LE MD Sep 15, 2017 10:24
[2017-09-15] MEDS ORDERED: INFLUENZA TRIvalent 2017-2018 0.5 ML/45 MCG SYR IM ONE (10:30)
[2017-09-15] MEDS ORDERED: LIDOCAINE 2% VISCOUS 15 ML UDC PO NR (10:45)
[2017-09-15] MEDS ORDERED: ANTACID SUSP 30 ML UDC (MYLANTA) PO NR (10:45)
[2017-09-15] MEDS: PANTOPRAZOLE 40 MG (PROTONIX) TAB PO SCH (10:50)
[2017-09-15 11:05] VITALS: BP 144/75
[2017-09-15 12:00] VITALS: BP 130/65
[2017-09-15] MEDS ORDERED: OMEG-154 PO (13:04)
[2017-09-15] MEDS ORDERED: ASPI-999 PO (13:04)
[2017-09-15] MEDS ORDERED: CLOP75TA28 PO (13:04)
[2017-09-15] MEDS ORDERED: ATOR40TA70 PO (13:04)
[2017-09-15] MEDS ORDERED: LISI-556 PO (13:04)
[2017-09-15 14:26] LABS: MYOGLOBIN SERUM 56.4 NG/ML (10.0-92.0)
[2017-09-15 16:19] VITALS: BP 124/61
[2017-09-15] MEDS: DICLOFENAC 1% GEL 100 GM (VOLTAREN) TUBE TOP SCH ×2 (16:46→20:25)
[2017-09-15 19:27] VITALS: BP 128/61
--- NOTE | 2017-09-15 20:35 | History & Physicial (CHS) ---
HPI History of Present Illness: 62 yo F with know h/o CAD that presented to ER after chest pain started about 6 AM this AM. Improved some with nitro. Denies jaw or neck pain + Left shoulder pain. States that she is also having some burning abdominal pain in epigastric region. States that she really did not do anything over the weekend to hurt her shoulder. She had just woke up when her chest pain started. Pain is different then when she had her [place]. Has not missed any doses of medications. Source: patient, RN/MD, old records Exam Limitations: no limitations Date seen by provider: Sep 15, 2017 Time Seen by Provider: 13:20 Attending Physician Denise Smith MD PCP Denise Smith MD Consult Date of Admission Sep 15, 2017 at 08:55 Home Medications Home Medications Reviewed patient Home Medication Reconciliation Form Allergies Coded Allergies: acetaminophen (Unverified Allergy, Unknown, 10/02/16) WZD-Fptjeo-Ooaona Hx Patient Social History Marrital Status: Living Status: Lives at home with Alcohol Use: Denies Use Recreational Drug Use: No Smoking Status: Current Everyday Smoker Type Used: Cigarettes Recent Foreign Travel: No Contact w/other who traveled: No Recent Hopitalizations: No ([place] last year) Recent Infectious Disease Expo: No Physical Abuse Screen: No Sexual Abuse: No Immunizations Up To Date Tetanus Booster (TDap): Unknown Past Medical History CAD HTN Tobacco use Family Medical History Family History: Alzheimer's disease 19 FATHER Breast malignancy G8 SISTER COPD (chronic obstructive pulmonary disease) G8 BROTHER Cardiomegaly 19 MOTHER, Onset:46 Cardiovascular disease G8 BROTHER G8 SISTER Diabetes mellitus 19 MOTHER Hypertension 19 MOTHER Myocardial infarction G8 BROTHER ( age 46 ) G8 BROTHER Prostate cancer 19 FATHER Uterine cancer Review of Systems ([facility]C) Constitutional: no symptoms reported, No dizziness, No fever, No weakness EENTM: no symptoms reported, No ear discharge, No hearing loss, No mouth pain, No nose congestion Respiratory: no symptoms reported, No cough, No dyspnea on exertion, No orthopnea, No short of breath Cardiovascular: chest pain, No edema, No palpitations Gastrointestinal: abdominal pain (epigastric pain), No constipation, No diarrhea, heartburn, nausea, No vomiting Genitourinary: no symptoms reported, No dysuria, No frequency : No Musculoskeletal: muscle pain (left shoulder) Skin: no symptoms reported, No lesions, No rash Psychiatric/Neurological: No Symptoms Reported Reviewed Test Results Reviewed Test Results Lab Laboratory Tests Test 09/15/17 07:45 09/15/17 13:55 Range/Units White Blood Count 7.2 4.3-11.0 10^3/uL Red Blood Count 4.59 4.35-5.85 10^6/uL Hemoglobin 14.4 11.5-16.0 G/DL Hematocrit 42 35-52 % Mean Corpuscular Volume 90 80-99 FL Mean Corpuscular Hemoglobin 31 25-34 PG Mean Corpuscular Hemoglobin Concent 35 32-36 G/DL Red Cell Distribution Width 13.8 10.0-14.5 % Platelet Count 188 130-400 10^3/uL Mean Platelet Volume 10.7 H 7.4-10.4 FL Neutrophils (%) (Auto) 67 42-75 % Lymphocytes (%) (Auto) 24 12-44 % Monocytes (%) (Auto) 6 0-12 % Eosinophils (%) (Auto) 2 0-10 % Basophils (%) (Auto) 0 0-10 % Neutrophils # (Auto) 4.8 1.8-7.8 X 10^3 Lymphocytes # (Auto) 1.7 1.0-4.0 X 10^3 Monocytes # (Auto) 0.4 0.0-1.0 X 10^3 Eosinophils # (Auto) 0.2 0.0-0.3 10^3/uL Basophils # (Auto) 0.0 0.0-0.1 10^3/uL Prothrombin Time 12.4 12.2-14.7 SEC INR Comment 0.9 0.8-1.4 Activated Partial Thromboplast Time 26 24-35 SEC D-Dimer 1.02 H 0.00-0.49 UG/ML Sodium Level 137 135-145 MMOL/L Potassium Level 4.0 3.6-5.0 MMOL/L Chloride Level 105 98-107 MMOL/L Carbon Dioxide Level 19 L 21-32 MMOL/L Anion Gap 13 5-14 MMOL/L Blood Urea Nitrogen 28 H 7-18 MG/DL Creatinine 1.21 0.60-1.30 MG/DL Estimat Glomerular Filtration Rate 45 BUN/Creatinine Ratio 23 Glucose Level 194 H 70-105 MG/DL Calcium Level 10.6 H 8.5-10.1 MG/DL Magnesium Level 2.5 H 1.8-2.4 MG/DL Total Bilirubin 0.2 0.1-1.0 MG/DL Aspartate Amino Transf (AST/SGOT) 33 5-34 U/L Alanine Aminotransferase (ALT/SGPT) 53 0-55 U/L Alkaline Phosphatase 165 H 40-136 U/L Myoglobin 44.4 56.4 10.0-92.0 NG/ML Troponin I < 0.30 < 0.30 <0.30 NG/ML Total Protein 8.2 6.4-8.2 GM/DL Albumin 4.6 H 3.2-4.5 GM/DL Radiology of Exam: 09/15/17 CHEST 1 VIEW, AP/PA ONLY INDICATION: Chest pain Portable chest 0839 AM Heart size and pulmonary vascularity are normal. Lungs are clear. There are no effusions or pneumothoraces. IMPRESSION: Negative chest Physical Exam-([facility]C) Physical Exam Vital Signs VS - Last 72 Hours, by Label 09/15/17 09/15/17 09/15/17 09/15/17 07:43 07:52 08:42 09:30 Temp 98.6 98.6 98.6 98.6 Pulse 77 77 Resp 18 18 B/P (MAP) 144/75 (98) 138/72 (98) Pulse Ox 94 94 O2 Delivery Room Air 09/15/17 09/15/17 09/15/17 09/15/17 09:50 10:19 11:05 12:00 Temp 97.1 97.4 Pulse 70 60 60 61 Resp 20 16 B/P (MAP) 132/88 (103) 130/65 (86) Pulse Ox 95 94 96 O2 Delivery Room Air Room Air FiO2 21 09/15/17 09/15/17 09/15/17 09/15/17 13:00 16:19 19:00 19:27 Temp 97.8 97.9 Pulse 76 63 60 60 Resp 18 16 B/P (MAP) 124/61 (82) 128/61 (83) Pulse Ox 95 95 O2 Delivery Room Air Room Air Capillary Refill : Less Than 3 Seconds General Appearance: WD/WN, no apparent distress HEENT: PERRL/EOMI Neck: non-tender, supple, No carotid bruit Respiratory: chest non-tender, lungs clear, normal breath sounds, no respiratory distress, no accessory muscle use Cardiovascular: normal peripheral pulses, regular rate, rhythm, no edema, no JVD, no murmur Gastrointestinal: normal bowel sounds, non tender, soft, no organomegaly Back: no CVA tenderness Extremities: no pedal edema, no calf tenderness, normal capillary refill, other (Left shoulder muscle spasm, no erythema, ttp along scapular spine, no ttp to bicep tendon, normal ROM, neurovascularly intact to hand) Neurologic/Psychiatric: stenocaptioner II-XII nml as tested, no motor/sensory deficits, alert, normal mood/affect, oriented x 3 Skin: normal color, warm/dry Lymphatic: no adenopathy Clinical Quality Measures AMI/AHF: ASA po Prior to arrival: No DVT/VTE Risk/Contraindication: Risk Factor Score Per Nursin RFS Level Per Nursing on Admit: 4+=Very High Copy Copies To 1: DENISE SMITH MD Assessment/Plan Assessment/Plan (1) Atypical chest pain Status: Acute Assessment & Plan: - CE x 2 neg, 1 more pending - Cardiology was consulted in ER, plan for Echo in AM - Continue daily ASA and Plavix (2) CAD (coronary artery disease), [place] coronary artery Status: Chronic Assessment & Plan: - h/o stenting for STEMI Qualifiers: Qualified Codes: I25.10 - Atherosclerotic heart disease of [place] coronary artery without angina pectoris (3) HTN (hypertension) Status: Chronic Assessment & Plan: - controlled, continue home medication Qualifiers: Qualified Codes: I10 - Essential (primary) hypertension (4) Tobacco abuse Status: Chronic Assessment & Plan: - Discussed the importance of cessation (5) Left shoulder pain Status: Acute Assessment & Plan: - Will have PT come help with stretching - Diclofenac gel to pain - Continue ROM exercises Qualifiers: Qualified Codes: M25.512 - Pain in left shoulder DENISE SMITH MD Sep 15, 2017 20:35
[2017-09-15] MEDS ORDERED: ATORVASTATIN 20 MG (LIPITOR) TABLET PO SCH (21:00)
[2017-09-15] MEDS ORDERED: ATORVASTATIN 10 MG (LIPITOR) TABLET PO SCH (21:00)
[2017-09-16 00:30] VITALS: BP 113/67
[2017-09-16 04:28] VITALS: BP 110/60
[2017-09-16 05:13] LABS: HEMOGLOBIN 12.8 G/DL (11.5-16.0); MEAN PLATELET VOLUME 10.9 FL (7.4-10.4); RED BLOOD COUNT 4.17 10^6/uL (4.35-5.85); RED CELL DISTRIBUTION WIDTH 13.7 % (10.0-14.5); WHITE BLOOD COUNT 8.5 10^3/uL (4.3-11.0)
[2017-09-16 05:52] LABS: ALANINE AMINOTRANSFERASE 202 U/L (0-55); ALBUMIN 4.2 GM/DL (3.2-4.5); ALKALINE PHOSPHATASE 144 U/L (40-136); BILIRUBIN,TOTAL 0.4 MG/DL (0.1-1.0); BUN/CREATININE RATIO 19; CALCIUM 9.9 MG/DL (8.5-10.1); CARBON DIOXIDE 22 MMOL/L (21-32); CHLORIDE 107 MMOL/L (98-107); CHOLESTEROL 149 MG/DL (< 200); CREATININE SERUM 1.07 MG/DL (0.60-1.30); GFR ESTIMATED 52; GLUCOSE 108 MG/DL (70-105); HDL CHOLESTEROL 49 MG/DL (40-60); POTASSIUM 4.2 MMOL/L (3.6-5.0); SODIUM 139 MMOL/L (135-145); TOTAL PROTEIN 7.2 GM/DL (6.4-8.2); TRIGLYCERIDES 106 MG/DL (<150); VLDL CHOLESTEROL 21 MG/DL (5-40)
[2017-09-16] MEDS: DICLOFENAC 1% GEL 100 GM (VOLTAREN) TUBE TOP SCH (06:10)
[2017-09-16] MEDS: PANTOPRAZOLE 40 MG (PROTONIX) TAB PO SCH (06:10)
[2017-09-16] MEDS ORDERED: MULTIVIT W/MINERALS TAB (THERAGRAN M) PO SCH (07:00)
[2017-09-16 08:00] VITALS: BP 125/59
[2017-09-16] MEDS ORDERED: CLOPIDOGREL 75 MG (PLAVIX) TABLET PO SCH (09:00)
[2017-09-16] MEDS ORDERED: lisINopril 10 MG (PRINIVIL) TABLET PO SCH (09:00)
[2017-09-16] MEDS ORDERED: ASPIRIN E.C. 325 MG (ECOTRIN) TABLET PO SCH (09:00)
[2017-09-16] MEDS ORDERED: ASPIRIN E.C. 81 MG (ECOTRIN) TAB PO SCH (09:00)
--- NOTE | 2017-09-16 09:15 | Progress Note-Cardiology ---
Cardiology SOAP Progress Note Subjective: No cp but has relatively chronic L shoulder pain that is worse with motion at the shoulder. This pain was worse at time of admission, is still persistent, but back to usual baseline. Overall, she feels well and wishes to go home. Denies palp or syncope or shortness of breath Objective: I&O/Vital Signs Vital Sign - Last 12Hours 09/16/17 09/16/17 09/16/17 09/16/17 00:30 01:00 04:28 08:00 Temp 98.0 98.2 Pulse 68 57 64 60 Resp 18 18 B/P (MAP) 113/67 (82) 110/60 (77) 125/59 (81) Pulse Ox 94 93 95 O2 Delivery Room Air Room Air Room Air Intake and Output 09/16/17 00:00 Intake Total 2715 ml Balance 2715 ml Weight (Pounds): 197 Weight (Ounces): 0.0 Weight (Calculated Kilograms): 89.123135 Constitutional: AAO x 3, well-developed, well-nourished Respiratory: No accessory muscle use, lungs clear to percussion, lungs clear to auscultation Cardiovascular: regular rate-rhythm, S1 and S2, systolic murmur (faint RJ at card base) Gastrointestional: No tender, soft, No guarding, No rebound, No tenderness, audible bowel sounds Extremities: other (Tenderness elicited with motion a the L shoulder (same pain she presented with but now at usual baseline)) Neurologic/Psychiatric: oriented x 3, grossly intact, power is 5/5 both on sides Skin: No rash on exposed areas, No ulcerations on exposed areas Results/Procedures: Labs Laboratory Tests 09/15/17 13:55: Myoglobin 56.4, Troponin I < 0.30 09/16/17 05:00: Troponin I < 0.30, White Blood Count 8.5, Red Blood Count 4.17L, Hemoglobin 12.8 , Hematocrit 38, Mean Corpuscular Volume 90, Mean Corpuscular Hemoglobin 31, Mean Corpuscular Hemoglobin Concent 34, Red Cell Distribution Width 13.7, Platelet Count 174, Mean Platelet Volume 10.9H, Sodium Level 139, Potassium Level 4.2, Chloride Level 107, Carbon Dioxide Level 22, Anion Gap 10, Blood Urea Nitrogen 20H, Creatinine 1.07, Estimat Glomerular Filtration Rate 52, BUN/ Creatinine Ratio 19, Glucose Level 108H, Calcium Level 9.9, Total Bilirubin 0.4 , Aspartate Amino Transf (AST/SGOT) 111H, Alanine Aminotransferase (ALT/SGPT) 202H, Alkaline Phosphatase 144H, Total Protein 7.2, Albumin 4.2, Triglycerides Level 106, Cholesterol Level 149, LDL Cholesterol Direct 79, VLDL Cholesterol 21 , HDL Cholesterol 49 Laboratory Tests 09/15/17 07:45 09/16/17 05:00 A/P: Assessment: L shoulder pain w/o evidence of ACS Gen fatigue - improved following cessation of BB tx Ac inferior wall STEMI on 10-02-16 treated with RCA stenting (Alpine Xience 3.0 x 20 proximally and 3.0 x 28 int e mid vessel, nonoverlapping; L cors had mod diffuse disease (60% mid LAD and 80% relatively small caliber OM 1), LVEDP was moderately elevated; LVEF 40% No evidence of significant myocardial ischemia or infarction. Normal regional wall motion. LVEF 66% per MPI of March 2017 ICM - LVEF 40% prior to coronary intervention on 10-02-16 LVEF 60%. Trivial MR and TR. PASP estimated to be approx 35mmHg. No evidence of any significant valvular stenosis per echocardiogram of 10-08-16 Borderline DMII Chronic tobaccoism - cessation advised HLP - statin tx Mild carotid arterial disease per u/s of October 2016 Plan: * I reviewed her record, examined her, spoke with her and spoke with Dr Reyes who had been covering the Card Svce * She is feeling back to usual baseline and wants to go home * I have advised immediate and complete smoking cessation, compliance with meds and close outpatient f/u Clinical Quality Measures AMI/AHF: ASA po Prior to arrival: EMMANUEL Coello MD FACP FAC CCDS Sep 16, 2017 09:15
--- NOTE | 2017-09-16 11:22 | Discharge Summary ---
Diagnosis/Chief Complaint Date of Admission Sep 15, 2017 at 08:55 Date of Discharge 09/16/17 Admission Diagnosis Admission Diagnosis Chest Pain Discharge Diagnosis Noncardiac Chest Pain -cardiac enzymes negative x3 -seen by cardiology and cleared for discharge -chest pain determined to be non-cardiac in nature CAD -by history -seen by cardiology -resume home medications on discharge HTN -resume home medications on discharge Tobacco Abuse -cessation encouraged L Shoulder Pain -continue exercises shown by PT Chief Complaint/HPI Chief Complaint/HPI 62 yo F with know h/o CAD that presented to ER after chest pain started about 6 AM this AM. Improved some with nitro. Denies jaw or neck pain + Left shoulder pain. States that she is also having some burning abdominal pain in epigastric region. States that she really did not do anything over the weekend to hurt her shoulder. She had just woke up when her chest pain started. Pain is different then when she had her [place]. Has not missed any doses of medications. Discharge Summary-Simple/Stand Consultations Discharge Physical Examination Allergies: Coded Allergies: acetaminophen (Unverified Allergy, Unknown, 10/02/16) Vitals & I&Os Vital Sign - Last 12Hours Date Time Temp Pulse Resp B/P (MAP) Pulse Ox O2 Delivery O2 Flow Rate FiO2 09/16/17 08:00 60 18 125/59 (81) 95 Room Air 09/16/17 04:28 98.2 09/15/17 11:05 21 Intake and Output 09/16/17 00:00 Intake Total 2715 ml Balance 2715 ml General Appearance: Alert, Oriented X3, Cooperative, No Acute Distress HEENT: Atraumatic, EOMI, Mucous Memb Moist/[place] Respiratory: Clear to Auscultation, Normal Air Movement Cardiovascular: Regular Rate, Normal S1, Normal S2 Abdominal: Normal Bowel Sounds, Soft, No Tenderness, No Hepatosplenomegaly Extremities: No Clubbing, No Cyanosis, No Edema Skin: No Rashes, No Significant Lesion Neuro: Normal Speech, Normal Tone, Sensation Intact, Cranial Nerves 3-12 NL Psych/Mental Status: Mental Status NL, Mood NL Hospital Course See final discharge diagnosis. Labs Laboratory Tests Test 09/15/17 07:45 09/15/17 13:55 09/16/17 05:00 Range/Units White Blood Count 7.2 8.5 4.3-11.0 10^3/uL Red Blood Count 4.59 4.17 L 4.35-5.85 10^6/uL Hemoglobin 14.4 12.8 11.5-16.0 G/DL Hematocrit 42 38 35-52 % Mean Corpuscular Volume 90 90 80-99 FL Mean Corpuscular Hemoglobin 31 31 25-34 PG Mean Corpuscular Hemoglobin Concent 35 34 32-36 G/DL Red Cell Distribution Width 13.8 13.7 10.0-14.5 % Platelet Count 188 174 130-400 10^3/uL Mean Platelet Volume 10.7 H 10.9 H 7.4-10.4 FL Neutrophils (%) (Auto) 67 42-75 % Lymphocytes (%) (Auto) 24 12-44 % Monocytes (%) (Auto) 6 0-12 % Eosinophils (%) (Auto) 2 0-10 % Basophils (%) (Auto) 0 0-10 % Neutrophils # (Auto) 4.8 1.8-7.8 X 10^3 Lymphocytes # (Auto) 1.7 1.0-4.0 X 10^3 Monocytes # (Auto) 0.4 0.0-1.0 X 10^3 Eosinophils # (Auto) 0.2 0.0-0.3 10^3/uL Basophils # (Auto) 0.0 0.0-0.1 10^3/uL Prothrombin Time 12.4 12.2-14.7 SEC INR Comment 0.9 0.8-1.4 Activated Partial Thromboplast Time 26 24-35 SEC D-Dimer 1.02 H 0.00-0.49 UG/ML Sodium Level 137 139 135-145 MMOL/L Potassium Level 4.0 4.2 3.6-5.0 MMOL/L Chloride Level 105 107 98-107 MMOL/L Carbon Dioxide Level 19 L 22 21-32 MMOL/L Anion Gap 13 10 5-14 MMOL/L Blood Urea Nitrogen 28 H 20 H 7-18 MG/DL Creatinine 1.21 1.07 0.60-1.30 MG/DL Estimat Glomerular Filtration Rate 45 52 BUN/Creatinine Ratio 23 19 Glucose Level 194 H 108 H 70-105 MG/DL Calcium Level 10.6 H 9.9 8.5-10.1 MG/DL Magnesium Level 2.5 H 1.8-2.4 MG/DL Total Bilirubin 0.2 0.4 0.1-1.0 MG/DL Aspartate Amino Transf (AST/SGOT) 33 111 H 5-34 U/L Alanine Aminotransferase (ALT/SGPT) 53 202 H 0-55 U/L Alkaline Phosphatase 165 H 144 H 40-136 U/L Myoglobin 44.4 56.4 10.0-92.0 NG/ML Troponin I < 0.30 < 0.30 < 0.30 <0.30 NG/ML Total Protein 8.2 7.2 6.4-8.2 GM/DL Albumin 4.6 H 4.2 3.2-4.5 GM/DL Triglycerides Level 106 <150 MG/DL Cholesterol Level 149 < 200 MG/DL LDL Cholesterol Direct 79 1-129 MG/DL VLDL Cholesterol 21 5-40 MG/DL HDL Cholesterol 49 40-60 MG/DL Radiology Reviewed of Exam: 09/15/17 CHEST 1 VIEW, AP/PA ONLY INDICATION: Chest pain Portable chest 0839 AM Heart size and pulmonary vascularity are normal. Lungs are clear. There are no effusions or pneumothoraces. IMPRESSION: Negative chest Discussion & Recommendations On the morning of discharge the patient is sitting up at bedside and anxious for discharge. She is feeling well, has had no further chest pain and would like to go home. She has been cleared for discharge by cardiology. Discharge Condition at discharge Stable Instructions to patient/family Please see electronic discharge instructions given to patient. Discharge Medications Reviewed and agree with Discharge Medication list on patient's Discharge Instruction sheet Clinical Quality Measures AMI/AHF: ASA po Prior to arrival: No DVT/VTE Risk/Contraindication: Risk Factor Score Per Nursin RFS Level Per Nursing on Admit: 4+=Very High Copy Copies To 1: DENISE HILL MD, MARGARET E DO Sep 16, 2017 11:22
--- NOTE | 2017-09-16 11:25 | Discharge Instructions ---
Discharge [facility] Discharge Medications New, Converted or Re-Newed RX: Other (no medication changed) Continued Medications: Aspirin (Aspirin) 81 Mg Tab.chew 81 MG PO DAILY, TAB Atorvastatin Calcium (Atorvastatin Calcium) 40 Mg Tablet 20 MG PO HS TAKES 1/2 OF A (40 MG) TABLET Clopidogrel Bisulfate (Clopidogrel) 75 Mg Tablet 75 MG PO DAILY, TAB LAST FILLED 06/26/17 #90 Lisinopril (Lisinopril) 5 Mg Tablet 2.5 MG PO DAILY, TAB TAKES 1/2 OF A (5 MG) TABLET Multivitamin (Daily Multiple Vitamin) 1 Each Tablet 1 TAB PO DAILY, TAB [place]-3S/Dha/Epa/Fish Oil (Fish Oil [place]-3 Softgel) 1 Each Capsule. 2 CAP PO DAILY, CAP Patient Instructions Patient Instructions Keep appointments as scheduled Goal/Follow Up Appt: Dr. Smith Sep 24 at 11:00 am Return to The Hospital For: chest pain or pressure unrelieved by rest, severe shortness of breath unrelieved by rest, nausea or vomiting that makes you unable to keep down liquids or ice chips, if directed by master control supervisor provider or other emergent complaints or concerns Activity & Diet Discharge Diet: Cardiac Diet Activity as Tolerated: Yes DARLENE MORALES DO Sep 16, 2017 11:25
[2017-09-16 12:39] VITALS: BP 125/59
--- OUTSIDE RECORDS SUMMARY | 2017-09-17 14:31 | XMS REPORT | Continuity of Care Document ---
Author Author [facility] Organization [facility] Address Unknown Phone Unavailable Allergies Active [...] mg Tablet Drug Allergy 03/06/2012 Yes acetaminophen [id number] Drug Allergy Unknown N/A 10/02/2016 Medications There [...] CCDS Ot I25.10 ATHSCL HEART DISEASE OF [place] CORONARY 10/04/2016 JEANNETTE MOSS FACC, ALI FACP [...] SEGALP Ot I25.10 ATHSCL HEART DISEASE OF [place] CORONARY 10/09/2016 BAIMA, FORREST L MASTER CARPENTER Ot I25.5 ISCHEMIC CARDIOMYOPATHY 10/09/2016 BAIMA, FORREST L MASTER CARPENTER Ot I25.10 ATHSCL HEART DISEASE OF [place] CORONARY 10/09/2016 BAIMA, FORREST L MASTER CARPENTER Ot I25.5 ISCHEMIC CARDIOMYOPATHY 10/10/2016 BAIMA, FORREST L MASTER CARPENTER Ot I25.10 ATHSCL HEART DISEASE OF [place] CORONARY 10/10/2016 BAIMA, FORREST L MASTER CARPENTER Ot I25.5 ISCHEMIC CARDIOMYOPATHY 10/30/2016 BAIMA, FORREST L MASTER CARPENTER Ot I25.10 ATHSCL HEART DISEASE OF [place] CORONARY 10/30/2016 BAIMA, FORREST L MASTER CARPENTER Ot I25.5 ISCHEMIC CARDIOMYOPATHY 10/30/2016 ANGI BO Ot 461.9 ACUTE SINUSITIS NOS 10/30/2016 BAIMA, FORREST L MASTER CARPENTER Ot I25.10 ATHSCL HEART DISEASE OF [place] CORONARY 10/30/2016 BAIMA, FORREST L MASTER CARPENTER Ot I25.5 ISCHEMIC CARDIOMYOPATHY 11/06/2016 ANGI BO Ot 461.9 ACUTE SINUSITIS NOS 11/06/2016 BAIMA, FORREST L MASTER CARPENTER Ot I25.10 ATHSCL HEART DISEASE OF [place] CORONARY 11/06/2016 BAIMA, FORREST L MASTER CARPENTER Ot I25.5 ISCHEMIC CARDIOMYOPATHY 11/07/2016 JEANNETTE MOSS FACC, EMMANUEL FACP CCDS Ot E78.4 OTHER HYPERLIPIDEMIA 11/07/2016 JEANNETTE MOSS FACC, ALI FACP CCDS Ot I25.10 ATHSCL HEART DISEASE OF [place] CORONARY 11/07/2016 JEANNETTE MOSS FACC, ALI FACP CCDS Ot R53.83 OTHER FATIGUE 11/07/2016 JEANNETTE MOSS FACC, ALI FACP CCDS Ot Z72.0 TOBACCO USE 11/19/2016 JEANNETTE MOSS FACC, ALI FACP CCDS Ot E78.4 OTHER HYPERLIPIDEMIA 11/19/2016 JEANNETTE MOSS FACC, ALI FACP CCDS Ot I25.10 ATHSCL HEART DISEASE OF [place] CORONARY 11/19/2016 JEANNETTE MOSS FACC, ALI FACP CCDS Ot R53.83 OTHER FATIGUE 11/19/2016 JEANNETTE MOSS FACC, ALI FACP CCDS Ot Z72.0 TOBACCO USE 12/15/2016 BRIAN JENKINS APRN Ot E11.9 TYPE 2 DIABETES MELLITUS WITHOUT COMPLIC 12/15/2016 BRIAN JENKINS CHARTER BOAT CAPTAIN Ot F17.210 NICOTINE DEPENDENCE, CIGARETTES, UNCOMPL 12/15/2016 BRIAN JENKINS [employer]TER BOAT CAPTAIN Ot I10 ESSENTIAL (PRIMARY) HYPERTENSION 12/15/2016 BRIAN JENKINS CHARTER BOAT CAPTAIN Ot I25.2 OLD MYOCARDIAL INFARCTION 12/15/2016 BRIAN JENKINS CHARTER BOAT CAPTAIN Ot 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, LEFT ANKLE AND FOOT 12/15/2016 BRIAN JENKINS CHARTER BOAT CAPTAIN Ot M79.672 PAIN IN LEFT FOOT 12/15/2016 BRIAN JENKINS CHARTER BOAT CAPTAIN Ot 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 12/15/2016 BRIAN JENKINS CHARTER BOAT CAPTAIN Ot Z79.899 OTHER SENIOR CARE (CURRENT) DRUG THERAPY 12/16/2016 ANGI BO Ot 461.9 ACUTE SINUSITIS NOS 12/16/2016 FORREST SEGAL MASTER CARPENTER Ot I25.10 ATHSCL HEART DISEASE OF [place] CORONARY 12/16/2016 FORREST SEGAL MASTER CARPENTER Ot I25.5 ISCHEMIC CARDIOMYOPATHY 12/16/2016 JEANNETTE MOSS FACC, ALI FACP CCDS Ot E78.4 OTHER HYPERLIPIDEMIA 12/16/2016 JEANNETTE MOSS FACC, ALI FACP CCDS Ot I25.10 ATHSCL HEART DISEASE OF [place] CORONARY 12/16/2016 JEANNETTE MOSS FACC, ALI FACP CCDS Ot R53.83 OTHER FATIGUE 12/16/2016 JEANNETTE MOSS FACC, ALI FACP CCDS Ot Z72.0 TOBACCO USE 12/20/2016 BRIAN JENKINS CHARTER BOAT CAPTAIN Ot E11.9 TYPE 2 DIABETES MELLITUS WITHOUT COMPLIC 12/20/2016 BRIAN JENKINS CHARTER BOAT CAPTAIN Ot F17.210 NICOTINE DEPENDENCE, CIGARETTES, UNCOMPL 12/20/2016 BRIAN JENKINS CHARTER BOAT CAPTAIN Ot I10 ESSENTIAL (PRIMARY) HYPERTENSION 12/20/2016 BRIAN JENKINS CHARTER BOAT CAPTAIN Ot I25.2 OLD MYOCARDIAL INFARCTION 12/20/2016 BRIAN JENKINS APRN Ot 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, LEFT ANKLE AND FOOT 12/20/2016 BRIAN JENKINS APRN Ot M79.672 PAIN IN LEFT FOOT 12/20/2016 BRIAN JENKINS APRN Ot 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 12/20/2016 BRIAN JENKINS APRN Ot Z79.899 OTHER SENIOR CARE (CURRENT) DRUG THERAPY 01/03/2017 ANGI BO Ot 461.9 ACUTE SINUSITIS NOS 01/03/2017 BAIMA, FORREST L MASTER CARPENTER Ot I25.10 ATHSCL HEART DISEASE OF [place] CORONARY 01/03/2017 BAIMA, FORREST L MASTER CARPENTER Ot I25.5 ISCHEMIC CARDIOMYOPATHY 01/03/2017 JEANNETTE MOSS FACC, ALI FACP CCDS Ot E78.4 OTHER HYPERLIPIDEMIA 01/03/2017 JEANNETTE MOSS FACC, ALI FACP CCDS Ot I25.10 ATHSCL HEART DISEASE OF [place] CORONARY 01/03/2017 JEANNETTE MOSS FACC, ALI FACP CCDS Ot R53.83 OTHER FATIGUE 01/03/2017 JEANNETTE MOSS FACC, ALI FACP CCDS Ot Z72.0 TOBACCO USE 02/06/2017 ANGI BO Ot 461.9 ACUTE SINUSITIS NOS 02/06/2017 BAIMA, FORREST L MASTER CARPENTER Ot I25.10 ATHSCL HEART DISEASE OF [place] CORONARY 02/06/2017 BAIMA, FORREST L MASTER CARPENTER Ot I25.5 ISCHEMIC CARDIOMYOPATHY 02/06/2017 JEANNETTE MOSS FACC, ALI FACP CCDS Ot E78.4 OTHER HYPERLIPIDEMIA 02/06/2017 JEANNETTE MOSS FACC, ALI FACP CCDS Ot I25.10 ATHSCL HEART DISEASE OF [place] CORONARY 02/06/2017 JEANNETTE MOSS FACC, ALI FACP CCDS Ot R53.83 OTHER FATIGUE 02/06/2017 JEANNETTE MOSS FACC, ALI FACP CCDS Ot Z72.0 TOBACCO USE 02/13/2017 BAIMA, FORREST L MASTER CARPENTER Ot E78.4 OTHER HYPERLIPIDEMIA 02/13/2017 BAIMA, FORREST L MASTER CARPENTER Ot I25.10 ATHSCL HEART DISEASE OF [place] CORONARY 04/08/2017 ANGI BO Ot 461.9 ACUTE SINUSITIS NOS 04/08/2017 BAIMA, FORREST L MASTER CARPENTER Ot I25.10 ATHSCL HEART DISEASE OF [place] CORONARY 04/08/2017 BAIMA, FORREST L MASTER CARPENTER Ot I25.5 ISCHEMIC CARDIOMYOPATHY 04/08/2017 JEANNETTE MOSS FACC, ALI FACP CCDS Ot E78.4 OTHER HYPERLIPIDEMIA 04/08/2017 JEANNETTE MOSS FACC, ALI FACP CCDS Ot I25.10 ATHSCL HEART DISEASE OF [place] CORONARY 04/08/2017 JEANNETTE MOSS [facility], ALI FACP CCDS Ot R53.83 OTHER FATIGUE 04/08/2017 JEANNETTE MOSS FACC, ALI FACP CCDS Ot Z72.0 TOBACCO USE 04/08/2017 BAIMAFORREST L MASTER CARPENTER Ot E78.4 OTHER HYPERLIPIDEMIA 04/08/2017 BAIMA, FORREST L MASTER CARPENTER Ot I25.10 ATHSCL HEART DISEASE OF [place] CORONARY 04/24/2017 LIZ MOSS, DENISE Fraser Ot R13.10 DYSPHAGIA, UNSPECIFIED 04/24/2017 JEANNETTE MOSS [facility], ALI FACP CCDS Ot E78.4 OTHER HYPERLIPIDEMIA 04/24/2017 JEANNETTE MOSS FACC, ALI FACP CCDS Ot I25.10 ATHSCL HEART DISEASE OF [place] CORONARY 04/24/2017 JEANNETTE MOSS FACC, ALI FACP CCDS Ot Z72.0 TOBACCO USE 08/09/2017 BAIMA FORREST L MASTER CARPENTER Ot E78.4 OTHER HYPERLIPIDEMIA 08/09/2017 BAIMA FORREST L MASTER CARPENTER Ot I25.10 ATHSCL HEART DISEASE OF [place] CORONARY Procedures Code Description [place] [address] ROUTINE VENIPUNCTURE 06/02/2012 72373 A1C (IN-HOUSE) 06/02/2012 71687 MICRO ALBUMIN-IN HOUSE 06/02/2012 73178 CMP 06/02/2012 48147 LIPID PANEL 06/02/2012 [id number] GFR CALC (RESULT ONLY) 06/02/2012 43464 ROUTINE VENIPUNCTURE 12/03/2012 42409 A1C (IN-HOUSE) 12/03/2012 39913 CMP 12/03/2012 45214 LIPID PANEL 12/03/2012 1449051 GFR CALC (RESULT ONLY) 12/03/[address] SINUS W/O CONTRAST 12/15/2012 16513 ROUTINE VENIPUNCTURE 08/04/2013 12435 MICRO ALBUMIN-IN HOUSE 08/04/2013 14038 A1C (IN-HOUSE) 08/04/2013 7561885 GFR CALC (RESULT ONLY) 08/04/2013 32511 CMP 08/04/2013 74882 LIPID PANEL 08/04/2013 06018 MICROALBUMIN 08/04/2013 75340 ROUTINE VENIPUNCTURE 02/08/2014 05059 A1C (IN-HOUSE) 02/08/2014 9463092 GFR CALC (RESULT ONLY) 02/08/2014 03245 CMP 02/08/2014 11785 LIPID PANEL 02/08/2014 Results Test Result Range [...] Status Pt. Type Provider Facility Loc./Unit Complaint [id number] 08/07/2017 10:20:00 08/07/2017 23:59:59 CLS Outpatient FORREST SEGAL [facility] LAB I25.10 E78.4 [id number] 04/16/2017 11:33:00 04/16/2017 23:59:59 CLS Outpatient EMMANUEL MACHADO MD, FACC FACP CCDS [facility] CARD CAD I25.10 [id number] 04/08/2017 11:11:00 04/08/2017 23:59:59 CLS Outpatient DENISE HILL MD [facility] RAD R13.10 DYSPHAGIA [id number] 02/06/2017 11:18:00 02/06/2017 23:59:59 CLS Outpatient FORREST SEGAL [facility] LAB I25.10 E78.4 [id number] 12/15/2016 13:26:00 12/15/2016 14:35:00 DIS Emergency BRIAN JENKINS APRN [facility] ER L FOOT PAIN [id number] 11/06/2016 09:28:00 11/06/2016 23:59:59 CLS Outpatient EMMANUEL MACHADO MD, FACC FACAlfredo CCDS [facility] LAB FATIGUE,CAD, HLP [id number] 10/08/2016 13:31:00 10/08/2016 23:59:59 CLS Outpatient FORREST SEGAL [facility] CARD CAD [id number] 10/02/2016 16:26:00 10/04/2016 13:20:00 DIS Outpatient EMMANUEL MACHADO MD, FACC FACP CCDS [facility] CATH STEMI [id number] 12/19/2012 09:34:00 12/19/2012 23:59:59 CLS Outpatient ANGI BO [facility] RAD CHRONIC SINUSITIS [id number] 09/16/2017 09:20:00 Document Registration [id number] 02/08/2014 11:42:00 02/08/2014 23:59:59 CLS Outpatient HAWA CORREA DO [id number] 08/04/2013 10:17:00 08/04/2013 23:59:59 CLS Outpatient HAWA CORREA DO [id number] 06/03/2012 09:49:00 06/03/2012 23:59:59 CLS Outpatient [id number] 06/02/2012 10:48:00 06/02/2012 23:59:59 [facility] Outpatient HAWA CORREA DO [id number] 12/15/2012 18:29:00 Document Registration [id number] 12/03/2012 10:35:00 Document Registration
== END 2017-09-16 09:13 | disposition home or self-care (01) ==
LOC: EDUNIT# 07:43 → ER 07:45 → 4TH 08:55 → UNDOADMOB 08:55 → 4TH 09:57 → UNDOADMOB 09:57 → UNDODISOB 09-16 12:40
PROVIDERS: ADMIT Family Medicine; ATTEND Family Medicine
DX: R07.89 Other chest pain (principal); I25.10 Atherosclerotic heart disease of native coronary artery without angina pectoris; I11.0 Hypertensive heart disease with heart failure; I50.22 Chronic systolic (congestive) heart failure; I65.23 Occlusion and stenosis of bilateral carotid arteries; E78.5 Hyperlipidemia, unspecified; E11.9 Type 2 diabetes mellitus without complications; M25.512 Pain in left shoulder; K21.9 Gastro-esophageal reflux disease without esophagitis; F17.210 Nicotine dependence, cigarettes, uncomplicated; I25.2 Old myocardial infarction; Z79.82 Long term (current) use of aspirin; Z79.899 Other long term (current) drug therapy; Z95.5 Presence of coronary angioplasty implant and graft; Z23 Encounter for immunization
CPT/HCPCS: 36415; 71045; 80053; 80061; 83036; 83735; 83874; 84484; 85025; 85027; 85379; 85610; 85730; 93005; 93041; G0378

== ENCOUNTER → 2018-02-07 | Outpatient (CLI) | payer OTHER ==
[~2018-02-07] MED LIST changes: +ASPI-999 PO; +ATOR40TA70 PO; +OMEG-154 PO
[2018-02-07 14:18] LABS: ALBUMIN 4.5 GM/DL (3.2-4.5); BILIRUBIN,TOTAL 0.4 MG/DL (0.1-1.0); CALCIUM 10.5 MG/DL (8.5-10.1); CREATININE SERUM 1.19 MG/DL (0.60-1.30); POTASSIUM 4.3 MMOL/L (3.6-5.0); TOTAL PROTEIN 7.5 GM/DL (6.4-8.2)
== END ==
LOC: LAB 13:42
PROVIDERS: ATTEND Nurse Practitioner Family
DX: I25.10 Atherosclerotic heart disease of native coronary artery without angina pectoris (principal); E11.9 Type 2 diabetes mellitus without complications; E78.4 Other hyperlipidemia; Z72.0 Tobacco use
CPT/HCPCS: 36415; 80053; 80061

== ENCOUNTER → 2018-09-09 | Outpatient (CLI) | payer OTHER ==
[2018-09-09 11:33] LABS: ALBUMIN 4.5 GM/DL (3.2-4.5); BILIRUBIN,TOTAL 0.3 MG/DL (0.1-1.0); CALCIUM 10.4 MG/DL (8.5-10.1); CREATININE SERUM 1.24 MG/DL (0.60-1.30); POTASSIUM 4.6 MMOL/L (3.6-5.0); TOTAL PROTEIN 7.7 GM/DL (6.4-8.2)
== END ==
LOC: LAB 10:49
PROVIDERS: ATTEND Nurse Practitioner Family
DX: I25.10 Atherosclerotic heart disease of native coronary artery without angina pectoris (principal); E78.5 Hyperlipidemia, unspecified; I34.0 Nonrheumatic mitral (valve) insufficiency; I77.9 Disorder of arteries and arterioles, unspecified
CPT/HCPCS: 36415; 80053; 80061

== ENCOUNTER → 2019-04-15 | Outpatient (CLI) | payer OTHER ==
--- NOTE | 2019-04-15 09:57 | Diagnostic Imaging Report ---
INDICATION: Palpable lump in the left breast. Patient also had an abnormal diagnostic mammogram earlier this same day. COMPARISON: Correlation is made with the diagnostic mammogram from earlier today. FINDINGS: At the 12 o'clock retroareolar aspect of the left breast, there is a circumscribed hypoechoic mass measuring 1.0 x 1.0 x 1.3 cm. This demonstrates some edge shadowing. No definite internal vascularity is seen. This does appear to be solid. At the 3 o'clock location of the left breast corresponding to the area of palpable abnormality, there is an ill-defined region of hypoechogenicity suggestive of a heterogeneous mass measuring 4.0 x 1.5 x 1.7 cm. This does show some internal vascularity. The inner left breast was also evaluated. No concerning mass is seen. The left axilla was evaluated. Fatty lymph nodes in the left axilla are noted. No definite concerning axillary lymph node is identified. IMPRESSION: The area of palpable abnormality corresponds to an ill-defined hypoechoic masslike area at the 3 o'clock location. Tissue sampling is recommended. In addition, there is a circumscribed hypoechoic solid-appearing nodule in the 12 o'clock retroareolar left breast, indeterminate. Tissue sampling of this lesion is recommended as well. ACR BI-RADS Category 4: Suspicious abnormality. Result letter will be mailed to the patient. Note: At least 10% of breast cancer is not imaged by mammography. Dictated by: Dictated on workstation # [id number]
--- NOTE | 2019-04-15 15:50 | Diagnostic Imaging Report ---
INDICATION: Palpable lump in the left breast as well as bloody nipple discharge. COMPARISON: No prior studies are available for comparison. TECHNIQUE: 2D and 3D bilateral diagnostic mammography was performed with CAD. FINDINGS: Scattered fibroglandular densities are identified bilaterally. There are scattered benign calcifications bilaterally. There is an area of asymmetric density in the upper and outer aspect of the left breast just deep to the area of palpable abnormality, marked with a BB marker. In addition, there is a circumscribed, slightly lobulated mass in the retroareolar and slightly lateral aspect of the left breast. There are some associated benign calcifications. A small nodular density in the medial aspect of the left breast 4-5 cm from the nipple is noted, best seen on the CC view. No definite correlate on the MLO view is identified. No malignant-appearing microcalcifications are identified. The axillae are unremarkable. IMPRESSION: Asymmetric density in the upper outer left breast at the area of palpable abnormality. In addition, there are nodular densities in the retroareolar as well as medial left breast. Further evaluation of all these areas with ultrasound is recommended and will be performed today. ACR BI-RADS Category 0: Incomplete. (Needs additional imaging evaluation). Result letter will be mailed to the patient. Note: At least 10% of breast cancer is not imaged by mammography. Dictated by: Dictated on workstation # [id number]
== END ==
LOC: RAD 08:10
PROVIDERS: ATTEND Nurse Practitioner Family
DX: N63.20 Unspecified lump in the left breast, unspecified quadrant (principal); R92.2 Inconclusive mammogram
CPT/HCPCS: 76641; 77066

== ENCOUNTER → 2019-04-29 | Outpatient (CLI) | payer OTHER ==
[~2019-04-29] VITALS: Ht 177.8 cm; Wt 86.4 kg
[~2019-04-29] MED LIST changes: +LIDOCAINE 1% INJ 20 ML 20 ML VIAL INJ ONE; +LIDOCAINE 1% INJ 20 ML 20 ML VIAL ONE
--- NOTE | 2019-04-29 14:41 | Diagnostic Imaging Report ---
EXAMINATION: Ultrasound-guided biopsy of the left breast. INDICATION: Left breast mass. PERSONAL HISTORY: The left breast ultrasound exam performed on 04/15/2019 noted two masses in the left breast. One was located in the 12 o'clock position of the retroareolar region while the other was in the lateral aspect of the left breast. TECHNIQUE: Following aseptic preparation of the skin and administration of local anesthesia, the lesion in the 12 o'clock position was biopsied with an 18-gauge Chiba needle and ultrasound guidance. Four passes were made. A clip was inserted into the biopsy site following the procedure. The patient the procedure well. An ultrasound guided biopsy of the lesion in the lateral aspect of the left breast is pending. IMPRESSION: There has been a successful ultrasound-guided biopsy of the mass in the retroareolar region of the left breast. The final pathology report is pending. Dictated by: Dictated on workstation # [id number]
--- NOTE | 2019-04-29 14:42 | Diagnostic Imaging Report ---
EXAMINATION: Ultrasound guided biopsy of the left breast. INDICATION: Left breast masses. PERSONAL HISTORY: The left breast ultrasound exam performed on 04/15/2019 noted masses in the 12 o'clock position of the retroareolar region and in the 3 o'clock position of the lateral aspect of the breast. The lesion in the 12 o'clock position was biopsied prior to this procedure. TECHNIQUE: Following aseptic preparation of the skin and administration of local anesthesia, the mass in the lateral aspect of the left breast was biopsied using a 14-gauge Achieve needle and ultrasound guidance. Four passes were obtained. A clip was inserted into the biopsy site following the procedure. The patient tolerated the procedure well and was dismissed in good condition. IMPRESSION: There has been a successful ultrasound guided biopsy of the mass in the lateral aspect of the left breast. The final pathology report is pending. Dictated by: Dictated on workstation # [id number]
--- NOTE | 2019-04-30 07:49 | Diagnostic Imaging Report ---
EXAMINATION: Unilateral diagnostic left mammogram. INDICATION: Post biopsy left breast The patient underwent an ultrasound-guided biopsy of 2 lesions in the left breast earlier today. There are stereotactic clips in the area of the biopsy sites. The clip associated with the rounded lesion in the 12 o'clock position of the retroareolar region lies just inferior to the mass. The clip associated with the larger mass in the lateral aspect of the breast has migrated medially and proximally 1.5 cm from the biopsy site. IMPRESSION: There are stereotactic clips within the left breast corresponding to the masses that were biopsied earlier. A final pathology report is pending. Dictated by: Dictated on workstation # [id number]
== END ==
LOC: RAD 10:42
PROVIDERS: ATTEND Nurse Practitioner Family
DX: C50.912 Malignant neoplasm of unspecified site of left female breast (principal)
CPT/HCPCS: 19083; 19084; 88305; 88341; 88342; 88360

== ENCOUNTER → 2019-10-08 | Outpatient (CLI) | payer MEDICAID ==
[~2019-10-08] MED LIST changes: -LIDOCAINE 1% INJ 20 ML 20 ML VIAL INJ ONE; -LIDOCAINE 1% INJ 20 ML 20 ML VIAL ONE; -METO-387 PO; +MTP25TSR PO
--- NOTE | 2019-10-08 13:30 | Diagnostic Imaging Report ---
INDICATION: Left breast lump. The patient has a history of left breast carcinoma, status post mastectomy. FINDINGS: Sonographic interrogation of the left axilla at the area of lump was performed. There is a simple appearing cyst measuring 2.8 x 2.1 x 2.5 cm. Adjacent to this is a lymph node measuring 2.2 x 1.1 x 0.7 cm. No other abnormalities are seen. IMPRESSION: Simple cyst, left axilla. There is a mildly prominent adjacent lymph node. No other abnormalities are seen. Dictated by: Dictated on workstation # [id number]
== END ==
LOC: RAD 11:01
PROVIDERS: ATTEND Internal Medicine Hematology & Oncology
DX: N63.32 Unspecified lump in axillary tail of the left breast (principal); Z85.3 Personal history of malignant neoplasm of breast; Z90.12 Acquired absence of left breast and nipple
CPT/HCPCS: 76642

== ENCOUNTER → 2019-10-19 | Day surgery (SDC) | payer MEDICAID ==
[~2019-10-19] VITALS: Ht 175.3 cm; Wt 87.7 kg
[~2019-10-19] MED LIST changes: +LIDOCAINE 1% INJ 20 ML 20 ML VIAL INJ ONE
--- OUTSIDE RECORDS SUMMARY | 2019-10-19 08:29 | XMS REPORT | Encounter Summary ---
Author Author [facility] Organization [facility] Address Unknown Phone Unavailable Care Team Providers Care [employer] Name Role Phone Sameera Smith MD PCP Encounter Details Care Team Description [place] [address] [place] [address] Coronary artery disease involving [place] heart with angina pectoris, unspecified vessel or lesion type (HCC) (Primary Dx) 07/01/2019 PAC Office [facility] [address] [place] [address] Anesthesia Record Responsible Anesthesiologist Anesthesia Start Time Anesthesi a Stop Time Procedure Name Noah Rosenbaum MD 07/06/19 1304 07/06/19 1525 LEFT TOTAL MASTECTOMY (Left Breast) Date Time Event Comment 1206 1251 AN Equip Check 1303 Out of Pre Procedure 1304 Anes Start 1305 In Room 1308 An Start Data 1311 An Induction The patient was ree valuated immediately before moderate or deep sedation use and before anesthesia induction. 1312 An Intubation 1313 Antibiotic Given 1313 Anesthesia Ready 1325 Proc Start 1514 LMA removed 1520 an stop data 1525 Handoff to RN I completed my SBAR handoff to the receiving nurse. 1525 An Stop Meds * No agents on file. * No blood administrations on file. Removal Type Details Placement Supraglott 07/06/19; 1312; Ventilated by mask (1); 07/06/19 1312 by ic Airway LMA; 4; 1 insertion attempt; FlintstoneSameera Stevenson, Auscultation, End-tidal CO2 ARIELA Duffy 07/06/19; 1424; Left; Chest; 15 FR; #1 07/06/19 1424 by Abhinav Price RN Drain Clive 07/06/19; 1432; Chest; 15 FR; #2 07/06 1432 by Abhinav Price RN Drain Wounds 07/06/19; 1433; Left; Chest; Surgical 07/06/19 1433 by Albert, (NOT for Incision BRIAN Miller Pressure Injuries) Wounds 07/06/19; 1433; Left; Axilla; Surgical 07/06/19 1433 by Albetr, (NOT for Incision BRIAN Miller Pressure Injuries) 07/07/19 1026 by Jyothi Gonzáles RN Peripheral 07/06/19; 1050; RN; R; Lower; Forearm; 07/06/19 1050 by ABDIRAHMAN Petty 20 G; No; 1; Therapy completed; Hannah torres RN 07/07/19; 1026 documented in this encounter Social History Date Tobacco Use Types Packs/Day Years Used Heavy Tobacco Smoker Cigarettes 1 43 Smokeless Tobacco: Never Used Comments: less then 1 ppd currently Drinks/Week oz/Week Comments Alcohol Use Not Currently Sex Assigned at Date Recorded Not on file Industry Job Start Date Occupation Not on file Not on file Not on file Travel End Travel History Travel Start No recent travel history available. documented as of this encounter Last Filed Vital Signs Reading Time Taken Comments Vital Sign 140/69 07/01/2019 12:40 PM QUARANTINE OFFICER Blood Pressure 75 07/01/2019 12:40 PM QUARANTINE OFFICER Pulse 36.5 C (97.7 F) 07/01/2019 12:40 PM QUARANTINE OFFICER Temperature - - Respiratory Rate 99% 07/01/2019 12:40 PM QUARANTINE OFFICER Oxygen Saturation - - Inhaled Oxygen Concentration 89.3 kg (196 lb 12.8 oz) 07/01/2019 12:40 PM QUARANTINE OFFICER Weight 175.3 cm (5' 9") 07/01/2019 12:40 PM QUARANTINE OFFICER Height 29.06 07/01/2019 12:40 PM QUARANTINE OFFICER Body Mass Index documented in this encounter Functional Status Date of Assessment Functional Status Response 05/28/2019 Does the patient have a hearing impairment: No 05/28/2019 Does the patient have a visual impairment: No 05/28/2019 Does the patient have impaired ambulation: No 05/28/2019 Does the patient have an activity of daily living No (ADL) impairment: 05/28/2019 Does the patient have an instrumental activity of No daily living (IADL) impairment: Date of Assessment Cognitive Status Response 05/28/2019 Does the patient have a cognitive impairment: No documented as of this encounter Patient Instructions * Pre-Anesthesia Patient Instructions* Park Kennedy RN - 07/01/2019 1:00 PM QUARANTINE OFFICER GENERAL INFORMATION Before you come to the hospital Make arrangements for a responsible adult to drive you home and stay with you for 24 hours following surgery. Bath/Shower Instructions Take a bath or shower with antibacterial soap the night before or the morning of your procedure. Use clean towels. Put on clean clothes after bath or shower. Avoid using lotion and oils. If you are having surgery above the waist, wear a shirt that fastens up the f ront. Sleep on clean sheets if bath or shower is done the night before procedure. Leave money, credit cards, jewelry, and any other valuables at home. The [facility] is not responsible for the loss or breakage of [employer] items. Remove nail beninese, makeup and all jewelry (including piercings) before comin g to the hospital. The morning of your procedure: brush your teeth and tongue do not smoke do not shave the area where you will have surgery What to bring to the hospital ID/ Insurance Card [employer] card Copy of your Living Will, Advanced Directives, and/or Durable Power of Attorn ey Small bag with a few personal belongings Cases for glasses/hearing aids/contact lens (bring solutions for contacts) Dress in clean, loose, comfortable clothing Eating or drinking before surgery Do not eat or drink anything after 11:00 p.m. the day before your procedure ( including gum, mints, candy, or chewing tobacco) OR follow the specific instruct ions you were given by your Surgeon. Other instructions Notify your surgeon if: you become ill with a cough, fever, sore throat, nausea, vomiting or flu-like symptoms you have any open wounds/sores that are red, painful, draining, or are new si nce you last saw the doctor you need to cancel your procedure Notify us at [place]: if you need to cancel your procedure if you are going to be late Arrival at the hospital Arrival at the hospital: [facility] - Your surgery is scheduled on 07/06/2019 at 12:30 p.m. Jabier wilson arrive at 10:30 a.m. The [facility] is located at [address] [place] [address]. [address] is at the [facility] of [address] Use the main entrance of the hospital, at the east side of the building. Parking is free. Check-in for surgery is inside the main entrance. ANTINE OFFICER * Pre-Anesthesia Medication Instructions* Mc Cope, PHARMD - 07/01/2019 1:00 PM QUARANTINE OFFICER YOUR MEDICATIONS: aspirin EC 81 mg tablet Take 81 mg by mouth daily. atorvastatin (LIPITOR) 20 mg tablet Take 20 mg by mouth at bedtime daily. calcium carbonate (TUMS) 500 mg (200 mg elemental calcium) chewable tablet C hew 1,000 mg by mouth daily as needed. Indications: heartburn clopiDOGrel (PLAVIX) 75 mg tablet Take 75 mg by mouth daily. fish oil- omega 3-DHA/EPA 300/1,000 mg capsule Take 1 capsule by mouth daily . lisinopril (ZESTRIL) 2.5 mg tablet Take 2.5 mg by mouth daily. Sitagliptin-Metformin (JANUMET) 50-500 mg tab Take 1 tablet by mouth twice d aily with meals. vitamins, multiple tablet Take 1 tablet by mouth daily. YOUR MEDICATION INSTRUCTIONS FOR SURGERY: Before surgery Stop the following vitamins, herbals, and natural supplements 14 days before neeraj rayshawn: Fish oil Multivitamin Stop the following medications 7 days before surgery: Anti-inflammatory medications such as ibuprofen (Advil, Motrin) and naproxen (Aleve) You may use acetaminophen (Tylenol) Please follow these instructions regarding your blood thinner medications: Aspirin and Plavix - hold for 5 days prior to the procedure as authorized by Dr. Mathew. Last dose for both medications on 06/30/19. Morning of surgery On the morning of surgery, do NOT take these medications: Remaining vitamins/supplements Ointments/creams/lotions Lisinopril Sitagliptin/Metformin (Janumet) Tums On the morning of surgery, take ONLY these medications with a sip (1-2 ounces) o f water: Nothing to take Other information Before surgery, please contact the clinic pharmacist with any medicine updates o r questions. E-mail: [email or web address] Before going home from the hospital, please ask your doctor when you should re-s tart your medicines that were stopped before surgery. ANTINE OFFICER documented in this encounter Progress Notes * Mc Cope PHARMD - 07/01/2019 1:00 PM QUARANTINE OFFICER PAC Pharmacist Medication Plan Note: Ximena William was seen in the PAC on 07/01/19. As part of the visit, an accurate medication list was obtained and the patient was given pre-op medicati on instructions for upcoming surgery on 07/06/[address] Morgan. Per signed cardiac risk stratification from Dr. Mathew (Cardiology), Aspirin and Plavix may be held for 5 days prior to the procedure if this is felt to be surg ically necessary. Resume both medications as soon as possible postoperatively. In speaking with patient today, she self elected to hold Aspirin and Plavix this morning based on the authorization above provided to her by Dr. Mathew. Patient reports that she took her last dose of both Aspirin and Plavix yesterday (06/30) for a 5 day hold preoperatively. Patient advised to continue holding both m edications as planned for this procedure. The plan above was communicated to the patient who verbalized understanding. [email or web address] ppropriateandacceptable. Mc Cope PHARMD ANTINE OFFICER documented in this encounter Plan of Treatment Order Schedule Name Type Priority Associated Diag noses ONE TIME for 1 Occurrences starting 10/2018 until 07/01/2019 ECG 12-LEAD ECG STAT Coronary artery disease involving [place] heart with angina pectoris, unspecified vessel or lesion type (HCC) documented as of this encounter Procedures Comments Procedure Name Priority Date/Time Associated Diag nosis HC BASIC METABOLIC PANEL Routine 07/01/2019 Coron lacey artery disease 1:16 PM QUARANTINE OFFICER involving [place] heart with angina pectoris, unspecified vessel or lesion type (HCC) ECG-SCAN 07/01/2019 12:00 AM QUARANTINE OFFICER documented in this encounter Results * BASIC METABOLIC PANEL (07/01/2019 1:16 PM QUARANTINE OFFICER) Sodium 137 137 - 147 MMOL/L [facility] Potassium 4.1 3.5 - 5.1 MMOL/L [facility] Chloride 101 98 - 110 MMOL/L [facility] CO2 24 21 - 30 MMOL/L [facility] Anion Gap 12 3 - 12 [facility] Glucose 159 (H) 70 - 100 MG/DL [facility] Blood Urea 22 7 - 25 MG/DL [facility] Nitrogen Creatinine 1.12 (H) 0.4 - 1.00 MG/DL [facility] Calcium 10.2 8.5 - 10.6 MG/DL [facility] eGFR Non 49 (L) >60 mL/min [facility] Comment: [place] The eGFR is not validated f or use in drug dosing adjustments. Continue to use estimated creatinine clearance per dosing reference text. Please contact the Clinical Pharmacist for questions. eGFR 59 (L) >60 mL/min [facility] [place] Comment: The eGFR is not validated for use in drug dosing adjustments. Continue to use estimated creatinine clearance per dosing reference text. Please contact the Clinical Pharmacist for questions. Specimen Blood Performing Organization Address City/State/Zipcode Ph one Number [facility] [address] [place] [address] * ECG-SCAN (07/01/2019 12:00 AM QUARANTINE OFFICER) Narrative Performed At This result has an attachment that is n ot available. Ordered by an unspecified provider. documented in this encounter Visit Diagnoses Diagnosis Coronary artery disease involving nativ e heart with angina pectoris, unspecified vessel or lesion type (HCC) documented in this encounter
--- OUTSIDE RECORDS SUMMARY | 2019-10-19 08:29 | XMS REPORT | Encounter Summary ---
Author [facility] Address Unknown Phone Unavailable Care Team Providers Care Machine Guide [employer] Name Role Phone Sameera Smith MD PCP Reason for Referral * Radiology Services (Routine) Referred By Contact Referred To Contact Status Reason Specialty Diagnoses / [place] [address] [place] [address] [facility] Nuclear Med [id number] [place] [id number] No Auth Needed Radiology Diagnoses Malignant neoplasm of upper-outer quadrant of left breast in female, estrogen receptor positive (HCC) P rocedures MAMMO LYMPH NODE INJ RADIOTRACER LT (OR) Reason for Visit * Auth/Cert Referred By Contact Referred To Contact Status Reason Specialty Diagnoses / Procedures Diagnoses Malignant neoplasm of upper-outer quadrant of left female breast, unspecified estrogen receptor status (HCC) Malignant neoplasm of upper-outer quadrant of left female breast, unspecified estrogen receptor status (HCC) [C50.412] P rocedures IA MASTECTOMY SIMPLE COMPLETE IA INTRAOP SENTINEL LYMPH NODE ID W/DYE INJECTION IA INJ RADIOACTIVE TRACER FOR ID OF SENTINEL NODE IA BX/EXC LYMPH NODE OPEN DEEP AXILLARY NODE IA AXILLARY LYMPHADENECTOMY COMPLETE LEFT TOTAL MASTECTOMY IDENTIFICATION SENTINEL LYMPH NODE INJECTION RADIOACTIVE TRACER FOR SENTINEL NODE IDENTIFICATION LEFT SENTINEL LYMPH NODE BIOPSY POSSIBLE LEFT AXILLARY LYMPH NODE DISSECTION Encounter Details Care Team Description [place] [address] [place] [address] 07/06/2019 [facility] [address] [place] [address] Social History Date Tobacco Use Types Packs/Day [...] history available. documented as of this encounter Functional Status Date of Assessment Functional Status Response 07/06/2019 Does the patient have a hearing impairment: [...] impairment: No documented as of this encounter Medications at Time of Discharge Start Date End Date Medication Sig Dispensed Refills 10/04/2016 aspirin EC 81 mg Take 81 mg by 0 tabletIndications: RESUME mouth daily. 72 HOURS (3 DAYS) AFTER SURGERY atorvastatin (LIPITOR) 20 Take 20 mg by 0 mg tablet mouth at bedtime daily. calcium carbonate (TUMS) Chew 1,000 mg 0 500 mg (200 mg elemental by mouth calcium) chewable daily as tabletIndications: needed. heartburn Indications: heartburn 10/04/2016 clopiDOGrel (PLAVIX) 75 Take 75 mg by 0 mg tabletIndications: mouth daily. RESUME 72 HOURS (3 DAYS) AFTER SURGERY. fish oil- omega 3-DHA/EPA Take 1 0 300/1,000 mg capsule by capsuleIndications: DO mouth daily. NOT RESUME UNTIL YOUR POST-OPERATIVE APPOINTMENT. lisinopril (ZESTRIL) 2.5 Take 2.5 mg 0 mg tablet by mouth daily. 07/07/2019 oxyCODONE (ROXICODONE) 5 Take one 16 tablet 0 mg tablet tablet to two tablets by mouth every 6 hours as needed for Pain (rated 5/10 or higher) Do not exceed 6 tabs in a 24 hour period. 07/07/2019 senna/docusate Take one 15 tablet 1 (SENOKOT-S) 8.6/50 mg tablet by tablet mouth twice daily. To prevent constipation while taking pain medication. 04/09/2018 Sitagliptin-Metformin Take 1 tablet 0 (JANUMET) 50-500 mg tab by mouth twice daily with meals. vitamins, multiple tablet Take 1 tablet 0 by mouth daily. documented as of this encounter Plan of Treatment Not on filedocumented as of this encounter Procedures Comments Procedure Name Priority Date/Time Associated Diag nosis MAMMO LYMPH NODE INJ Routine 07/06/2019 Malignant neoplasm of RADIOTRACER LT (OR) 7:10 AM CLERGY MEMBER upper-outer quadr ant of left breast in female, estrogen receptor positive (HCC) documented in this encounter Results * MAMMO LYMPH NODE INJ RADIOTRACER LT (OR) (07/06/2019 7:10 AM CLERGY MEMBER) Specimen Narrative Performed At This order has been auto finalized and does not conta in a result. [facility] MAM[facility] Performing Organization Address City/State/Zipcode Ph one Number [facility] documented in this encounter Visit Diagnoses Diagnosis Malignant neoplasm of upper-outer quadr ant of left breast in female, estrogen receptor positive (HCC) documented in this encounter Administered Medications Action Date Dose Rate Site Medication Order MAR Action 07/06/2019 7:00 AM CLERGY MEMBER 0.5 millicuries RP DX Tc-99m sulfur colloid injection Given 0.5 millicurie 0.5 millicurie, Intravenous, ONCE, 1 dose, 07/06/19 at 0930 documented in this encounter
--- OUTSIDE RECORDS SUMMARY | 2019-10-19 08:29 | XMS REPORT | Encounter Summary ---
Author Author [facility] Organization [facility] Address Unknown Phone Unavailable Care Team Providers Care Boiler Room Helper Name Role Phone Sameera Smith MD PCP Reason for Visit * Auth/Cert Referred By Contact Referred To Contact Status Reason Specialty Diagnoses / Procedures Diagnoses Malignant neoplasm of upper-outer quadrant of left female breast, unspecified estrogen receptor status (HCC) Malignant neoplasm of upper-outer quadrant of left female breast, unspecified estrogen receptor status (HCC) [C50.412] P rocedures UT MASTECTOMY SIMPLE COMPLETE UT INTRAOP SENTINEL LYMPH NODE ID W/DYE INJECTION UT INJ RADIOACTIVE TRACER FOR ID OF SENTINEL NODE UT BX/EXC LYMPH NODE OPEN DEEP AXILLARY NODE UT AXILLARY LYMPHADENECTOMY COMPLETE LEFT TOTAL MASTECTOMY IDENTIFICATION SENTINEL LYMPH NODE INJECTION RADIOACTIVE TRACER FOR SENTINEL NODE IDENTIFICATION LEFT SENTINEL LYMPH NODE BIOPSY POSSIBLE LEFT AXILLARY LYMPH NODE DISSECTION Encounter Details Care Team Description [place] [address] [place], [place] [id number] 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, estrogen receptor positive (HCC) 07/06/2019 [facility] 07/07/2019 [address] [place], [place] [address] Social History Date Tobacco Use Types Packs/Day [...] Signs Reading Time Taken Comments Vital Sign 110/58 07/07/2019 10:22 AM EXTERNAL AUDITOR Blood Pressure 67 07/07/2019 2:43 AM EXTERNAL AUDITOR Pulse 36.6 C (97.8 F) 07/07/2019 10:22 AM EXTERNAL AUDITOR Temperature - - Respiratory Rate 97% 07/07/2019 10:22 AM EXTERNAL AUDITOR Oxygen Saturation - - Inhaled Oxygen Concentration 86.7 kg (191 lb 2.2 oz) 07/06/2019 4:51 PM EXTERNAL AUDITOR Weight 175.3 cm (5' 9") 07/06/2019 10:40 AM EXTERNAL AUDITOR Height 28.23 07/06/2019 10:40 AM EXTERNAL AUDITOR Body Mass Index documented in this encounter [...] mouth daily. documented as of this encounter Progress Notes * Jyothi Gonzáles RN - 07/07/2019 10:28 AM EXTERNAL AUDITOR Discharge instructions given to pt and famliy and pt demonstrated stripping and emptying KALPANA drains. Belongings with pt and family and no home meds to return. IV dc'd and pt ambulated with staff to vehicle and transported home by family. RNAL AUDITOR * Jyothi Gonzáles RN - 07/07/2019 7:48 AM EXTERNAL AUDITOR Pt assessment completed. Pt sitting up in chair and finished breakfast. Pt den ies pain. Drsg C/D/I and KALPANA patent. Pt has no other needs or complaints and up ad giancarlo. Call light within reach. 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 POD #1 s/p left TM and SLNB on 07/06/19 -PO pain control with Tylenol scheduled, Oxycodone prn -May resume ASA and Plavix in 72 hours -Regular diet -Bowel regimen -IS as instructed by RT -KALPANA drains to bulb suction -No lifting more than 10 pounds for 6 weeks -May begin drain-in exercises at home -Follow up as scheduled with Dr. Olivo -Dispo: discharge to home later today Discussed with Dr. Olivo and will be seen by Dr. Olivo later today. S: No acute events overnight. States her pain is controlled. Tolerating diet. D enies nausea/emesis. Ambulating. O: Temp: 36.6 C (97.8 F) (12/10 0243) Pulse: 67 (07/07 243) Respirations: 18 PER MINUTE (07/07 243) BP: 128/72 (07/07 243) Date 07/06/19 07 - 07/07/19 0707/07/19 07 - 07/08/19 0700 Shift 1832-2268 5718-6476 24 Hour Total 7745-1992 2931-2683 24 Hour Total INTAKE P.O. 100 1900 2000 I.V.(mL/kg/hr) 1050(1) 748.1(0.7) 1798.1(0.9) Other 8 8 Shift Total(mL/kg) 1158(13.4) 2648.1(30.5) 3806.1(43.9) OUTPUT Urine(mL/kg/hr) 400(0.4) 2250(2.2) 2650(1.3) Urine 400 2250 2650 Drains 28 78 106 Drains 18 18 Drain Output (ml) (Clive La Drain 07/06/19 1424 Left Chest #1) 0 50 50 Drain Output (ml) (Clive La Drain 07/06/19 1432 Chest #2) 10 28 38 Other 30 30 Estimated Blood Loss 30 30 Shift Total(mL/kg) 458(5.3) 2328(26.9) 2786(32.1) NET 700 320.1 1020.1 Weight (kg) 86.7 86.7 86.7 86.7 86.7 86.7 Physical Exam: Gen: Alert, cooperative, NAD HEENT: NCAT, MMM, non-icteric Cardio: Regular rate Chest: left chest incision c/d/i w/ dressings in place, no surrounding erythema or drainage, no ecchymosis, no palpable fluid collections, KALPANA drains x 2 with se rosanguinous output Pulm: non-labored respirations on RA Ext: warm, dry, no edema/cyanosis of BUE Neuro: moves all extremities Skin: no rashes Sameera Jackson PA-C RNAL AUDITOR * Molly Vasquez RN - 07/06/2019 7:15 PM EXTERNAL AUDITOR Patient assessment completed and documented in the doc flow sheet, she is alert and oriented x 4. She is comfortably resting in bed finishing up her dinner (tanya ad). The left breast dressing is clean, dry and intact, no swelling or hematoma noted. The 2 KALPANA drains to bulb suction are secure and patent. Patient is rating left breast pain 4/10 and denies need for intervention at this time. Plan of ca re reviewed with patient and she verbalized understanding. Juwan SCDs are on, call light is within reach. Will continue to monitor patient throughout the shift. RNAL AUDITOR * Mary Petty, RT - 07/06/2019 5:18 PM EXTERNAL AUDITOR RT Adult Assessment Note NAME:Jeffry Dye :1955 AGE: 64 y.o. ADMISSION DATE: 07/06/2019 DAYS ADMITTED: LOS: 0 days RT Treatment Plan: Protocol Plan: Procedures PAP: Place a nursing order for "IS Q1h While Awake" for any of Lung Expansion in dicators Oxygen/Humidity: O2 to keep SpO2 > 95%(O2 to keep SpO2 >/= 92% after 24 hours post-op) Monitoring: Pulse oximetry continuous during night/sleep Additional Comments: Impressions of the patient: Stable Intervention(s)/outcome(s): Patient education that was completed: IS Recommendations to the care team: Continue IS Q1WA Vital Signs: Pulse: 70 RR: 16 PER MINUTE SpO2: 96 % O2 Device: Cannula Liter Flow: 2 Lpm O2%: Breath Sounds: Clear (implies normal) Respiratory Effort: Non-Labored RNAL AUDITOR * Miladys Roger RN - 06/24/2019 8:42 AM EXTERNAL AUDITOR Phone triage assessment not completed as PAC indicated and scheduled for 07-01-19 at 1300. She has history of OR resulting in stenting [address] Kwame Mathew in [place], [place]. Also current smoker,HTN,HLD and DM. GIUSEPPE sent. Un derstands instructions and arrival times. RNAL AUDITOR documented in this encounter H&P Notes * Rea Olivo MD - 07/06/2019 6:38 AM EXTERNAL AUDITOR Breast Surgery History and Physical Examination 07/06/2019 Patient: Jeffry Dye Admission Date: (Not on file), LOS: 0 days Date of Service: July 06, 2019 Attending Surgeon: Rea Olivo MD H&P Performed by: Melissa Fuentes MD ASSESSMENT: 64 y.o. female with CAD, cardiac stent 2017 (ASA/Plavix), DMT2, mult ifocal left breast cancer Active Problems: Malignant neoplasm of upper-outer quadrant of left breast in female, estrogen receptor positive (HCC) PLAN: To OR today for left total mastectomy, sentinel lymph node biopsy, possible c ompletion axillary dissection Informed consent signed and placed at bedside Discussed plan of care with staff surgeon, Dr. Olivo, who directed plan of care . __ HPI: Ms. Dye is a female who presented to the [facility] on at age 64 for evaluation of her left breast cancer. A left breast mas was fe lt by her provider on clinical exam in March 2019. Bilateral diagnostic mamm ograms showed an area of density in the palpable area of concern at 3:00, a mass in the subareolar area, and a small nodular density in the medial left breast. Left breast ultrasound showed a 1.3 cm circumscribed hypoechoic mass at 12:00, r etroareolar area an ill-defined region of hypoechogenicity suggestive of a heter ogeneous mass measuring 4 cm at 3:00 in the palpable area of concern. no concern ing finding was seen in the medial left breast. Biopsy of the two masses was rec ommended. Left breast biopsies on 04/29/19 showed a grade 2, DCIS with focal, gra de 2 invasive ductal carcinoma (1 mm) at 12:00 and grade 2, DCIS with invasive l obular carcinoma at 3:00. Interval update: no changes to clinical condition since last office visit Breast Imaging: Mammogram: - Bilateral diagnostic mammograms 04/15/19 ([facility]) showed scattered fibrogl andular densities bilaterally. There were scattered benign calcifications bilate rally. There was an area of asymmetric density in the upper and outer aspect of the left breast just deep to the area of palpable abnormality. In addition, ther e was a circumscribed, slightly lobulated mass in the retroareolar and slightly lateral aspect of the left breast. There were some associated benign calcificati ons. A small nodular density in the medial aspect of the left breast, 4-5 cm FTN was noted, best seen on the CC view. No definite correlate on the MLO view was identified. No malignant appearing calcifications were identified. The axillae w ere unremarkable. Ultrasound: - Left breast ultrasound 04/15/19 ([facility]) showed a 1.3 cm circumscribed hyp oechoic mass at 12:00, retroareolar area. No definite internal vascularity was s een. This did appeared to be solid. At 3:00, corresponding to the area of palpab le concern, there was an ill-defined region of hypoechogenicity suggestive of a heterogeneous mass measuring 4 cm. This did show some internal vascularity. The inner left breast was also evaluated. No concerning mass was seen. No definite c oncerning axillary lymph node was identified. BIRADS 4, biopsy of both findings was recommended. Pertinent PMH: Hx of OR in 2017 (stent placed), Hx of smoking 1 PPD x 43 years, hyperlipidemia, HTN, Type II DM. 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 Left breast- 1 cm mass at 12:00, SA area and 3 x 4 cm mass at 2-3:00, centered 4 cm FTN. No skin changes. No axillary, infraclavicular, or supraclavicular christofer nopathy. Referred by: Dr. Sameera Smith Medical History: Diagnosis Date Breast cancer (HCC) 2019 GERD (gastroesophageal reflux disease) tums prn Heart disease HTN (hypertension) Hyperlipidemia OR (myocardial infarction) (HCC) 2017 stent placed Type II diabetes mellitus (HCC) Surgical History: Procedure Laterality Date BREAST SURGERY Right 1998 lumpectomy HX HEART CATHETERIZATION 2017 stent x 1 CHOLECYSTECTOMY open COLONOSCOPY Medications: No current facility-administered medications on file prior to encounter. Current Outpatient Medications on File Prior to Encounter Medication Sig Dispense Refill aspirin EC 81 mg tablet Take 81 mg by mouth daily. atorvastatin (LIPITOR) 20 mg tablet Take 20 mg by mouth at bedtime daily. clopiDOGrel (PLAVIX) 75 mg tablet Take 75 mg by mouth daily. lisinopril (ZESTRIL) 2.5 mg tablet Take 2.5 mg by mouth daily. Sitagliptin-Metformin (JANUMET) 50-500 mg tab Take 1 tablet by mouth twice d aily with meals. Allergies: Acetaminophen Social History Socioeconomic History Marital status: Spouse name: Not on file Number of children: Not on file Years of education: Not on file Highest education level: Not on file Occupational History Not on file Tobacco Use Smoking status: Heavy Tobacco Smoker Packs/day: 1.00 Years: 43.00 Pack years: 43.00 Types: Cigarettes Smokeless tobacco: Never Used Tobacco comment: less then 1 ppd currently Substance and Sexual Activity Alcohol use: Not Currently Drug use: Never Sexual activity: Not on file Other Topics Concern Not on file Social History Narrative Not on file Family History Problem Relation Age of Onset Diabetes Mother Heart Disease Mother Cancer-Prostate Father Cancer-Breast Sister 40's, genetic testing negative Cancer-Breast Other 40's ROS: ROS General: no fevers/chills CVS: No chest pain, leg swelling Resp: no SOB, cough GI: no abdominal pain, nausea/vomiting, constipation/diarrhea : no dysuria Skin: no new rashes or lesions Vitals: Vital Signs: Last Filed In 24 Hours Vital Signs: 24 Hour Range Intake/Output: No intake or output data in the 24 hours ending 07/06/19 0638 Physical Exam: GEN: Well nourished, A&O, NAD HEENT: EOMI, no scleral icterus RESP: Unlabored respirations CV: Regular rate ABD: Soft, ND EXT: Warm well perfused no edema SKIN: No jaundice or pallor NEURO: Strength and sensation grossly in-tact bilaterally Lab/Radiology/Other Diagnostic Tests: No results for input(s): HGB, HCT, WBC, PLTCT, NA, K, CL, CO2, BUN, CR, GLU, CA, MG, PO4, ALBUMIN, TOTPROT, TOTBILI, AST, ALT, ALKPHOS, JUAN, LIPASE, PREALB, INR , PT, PTT in the last 72 hours. Melissa Fuentes MD Pager: [phone] I reviewed the R/B/A for the operation with the patient, who signed consent and agrees to proceed. Rea Olivo MD RNAL AUDITOR documented in this encounter Miscellaneous Notes * Care Plan - Molly Vasquez RN - 07/06/2019 8:11 PM EXTERNAL AUDITOR Will continue to follow plan of care. RNAL AUDITOR * Care Plan - Mallorie Rodriguez RN - 07/06/2019 5:41 PM EXTERNAL AUDITOR Assessment is done, documented. care plan initiated. RNAL AUDITOR * Operative Report (Direct Entry) - Rea Olivo MD - 07/06/2019 12:30 PM EXTERNAL AUDITOR Operative Report Surgery Date: 07/06/2019 Incision/Procedure Start Time: 1:25pm Incision Close/Procedure End Time: 2:43 PM Procedure Performed: Left Simple Mastectomy Left breast injection of dye for lymphatic mapping Left sentinel lymph node Surgeon(s) and Silk Screen Printing Racker(s): Surgeon(s) and Role: * Rea Olivo MD - Primary * Melissa Fuentes MD - Resident - Assisting Anesthesia: General Pre-Operative Diagnosis: Pre-Op Diagnosis Codes: * Malignant neoplasm of upper-outer quadrant of left female breast, unspecifi ed estrogen receptor status (HCC) [C50.412] Clinical Stage: Cancer Staging Malignant neoplasm of upper-outer quadrant of left breast in female, estrogen re ceptor positive (HCC) Staging form: Breast, AJCC 8th Edition - Clinical: Stage IB (cT2, cN0, cM0, G2, ER+, UT+, HER2-) - Signed by Herbert Santa APRN on 05/28/2019 Post-Operative Diagnosis: Post-Op Diagnosis Codes: * Malignant neoplasm of upper-outer quadrant of left female breast, unspecifi ed estrogen receptor status (HCC) [C50.412] Indications: Jeffry Dye is a 64 y.o. female who initially presented t o outpatient clinic with diagnosis of left breast cancer. After reviewing the ri sks, benefits, and alternatives, she agreed to proceed with the above noted oper ation. Procedure: The patient presented to the surgical center on the day of pre-scheduled surgery . The operative site was marked in the preoperative area and the patient was aysha en to the operating room and placed supine on the table. General anesthesia was administered and the patient was intubated without difficulty. IV antibiotics w ere given for infection prophylactics. A timeout was performed. 0.5miC of radiolabeled colloid was injected into the left breast, subareolar reg ion. Subsequently, 2.5cc of isosulfan blue dye were injected into the left stephen st, subareolar region. The patient was prepped and draped in usual sterile fashion. Surgical incision o f the left breast was marked to include the nipple-areolar complex as well as th e skin above and below. Attention was turned to the left breast. The incision w as made using a 15-blade scalpel. Electrocautery was used to deepen the incisio n. Skin flaps were created superiorly to the clavicle, medially to the sternum, inferiorly to the inframammary fold, and laterally to the latissimus dorsi musc le. The breast was then removed in its entirety including pectoralis fascia cedric ving serratus fascia intact. The breast was marked for orientation and sent to pathology for final assessment. Attention was turned to the left axilla which was approached via the mastectomy incision. Dissection proceeded through the clavipectoral fascia to the deep asp ect of the axilla. Using the gamma probe, we identified the sentinel lymph node s which were positive with the gamma probe and blue. All lymph nodes were sent f or frozen section. Frozen pathology revealed no evidence of malignancy in four S LN. There was no additional radioactivity or evidence of dye in the axilla upon further inspection. Meticulous hemostasis was confirmed. Meticulous hemostasis was obtained throughout the operative field. Two 15mm yola ke drains were then brought out through a separate incision site and secured in place with suture. The drains were placed over the anterior chest wall. The jim p dermal was then closed using 2-0 and 3-0 vicryl in an interrupted fashion foll owed by skin re-approximated using 4-0 monocryl in running subcuticular fashion. Prior to final closure, all sponge and instrument counts were confirmed correct. Dermabond was placed over both incision sites, along with sterile dressing. The patient woke in the operating room and was transported to recovery in stable co ndition. Estimated Blood Loss: 30cc Specimen(s) Removed/Disposition: ID Type Source Tests Collected by Time Destination 1 : LEFT SIMPLE MASTECTOMY SHORT STITCH SUPERIOR LONG STITCH LATERAL Tissue [place] st,Left SURGICAL PATHOLOGY Rea Olivo MD 07/06/2019 1358 2 : LEFT AXILLARY SENTINEL LYMPH NODE #1 Tissue Axilla SURGICAL PATHOLOGY Rea Olivo MD 07/06/2019 1407 Drains: two left anterior chest wall Complications: none I personally performed the entire procedure with assistance. SIGNATURE: Rea Olivo MD PATIENT NAME: Jeffry Dye DATE: July 06, 2019 TIME: 2:43 PM RNAL AUDITOR documented in this encounter Plan of Treatment Order Schedule Name Type Priority Associated Diag noses ONE TIME for 1 Occurrences starting 03/2019 until 07/06/2019, 1 completed BREAST SPEC PATH ONLY/NO Imaging Routine RAD READ documented as of this encounter Procedures Comments Procedure Name Priority Date/Time Associated Diag nosis POC GLUCOSE 07/07/2019 7:36 AM EXTERNAL AUDITOR POC GLUCOSE 07/06/2019 10:09 PM EXTERNAL AUDITOR POC GLUCOSE 07/06/2019 5:49 PM EXTERNAL AUDITOR POC GLUCOSE 07/06/2019 3:32 PM EXTERNAL AUDITOR HC FROZEN SECTION #1 Routine 07/06/2019 Malignant neoplasm of 1:58 PM EXTERNAL AUDITOR upper-outer quadrant of left female breast, unspecified estrogen receptor status (HCC) BIOPSY/ EXCISION LYMPH 07/06/2019 Malignant neop lasm of NODE DEEP AXILLARY 1:05 PM EXTERNAL AUDITOR upper-outer quadra nt of left female breast, unspecified estrogen receptor status (HCC) INJECTION RADIOACTIVE 07/06/2019 Malignant neopl asm of TRACER FOR SENTINEL NODE 1:05 PM EXTERNAL AUDITOR upper-outer quadrant of IDENTIFICATION left female breast, unspecified estrogen receptor status (HCC) IDENTIFICATION SENTINEL 07/06/2019 Malignant juan carlos plasm of LYMPH NODE 1:05 PM EXTERNAL AUDITOR upper-outer quadran t of left female breast, unspecified estrogen receptor status (HCC) MASTECTOMY - COMPLETE - 07/06/2019 Malignant juan carlos plasm of SIMPLE 1:05 PM EXTERNAL AUDITOR upper-outer quadran t of left female breast, unspecified estrogen receptor status (HCC) BREAST SPEC PATH ONLY/NO Routine 07/06/2019 RAD READ 11:35 AM EXTERNAL AUDITOR POC GLUCOSE 07/06/2019 11:18 AM EXTERNAL AUDITOR TUMOR PROGNOSTIC MARKERS 07/06/2019 SCAN 12:00 AM EXTERNAL AUDITOR TELEMETRY STRIPS-SCAN 07/06/2019 12:00 AM EXTERNAL AUDITOR documented in this encounter Results * POC GLUCOSE (07/07/2019 7:36 AM EXTERNAL AUDITOR) Glucose, POC 143 (H) 70 - 100 MG/DL MAIN LAB Specimen Performing Organization Address [facility] Ph one Number MAIN LAB [address] [place] [address] * POC GLUCOSE (07/06/2019 10:09 PM EXTERNAL AUDITOR) Glucose, POC 170 (H) 70 - 100 MG/DL MAIN LAB Specimen Performing Organization Address [facility] [address] [place] [address] * POC GLUCOSE (07/06/2019 5:49 PM EXTERNAL AUDITOR) Glucose, POC 196 (H) 70 - 100 MG/DL MAIN LAB Specimen Performing Organization Address [facility] [address] [place] [address] * POC GLUCOSE (07/06/2019 3:32 PM EXTERNAL AUDITOR) Glucose, POC 144 (H) 70 - 100 MG/DL MAIN LAB Specimen Performing Organization Address City/State/Zipcode Ph one Number MAIN LAB [address] [place] [address] * SURGICAL PATHOLOGY (07/06/2019 1:58 PM EXTERNAL AUDITOR) PATHOLOGY [email or web address] Department of Pathology and Laboratory Medicine [address] [place] [address] Surgical Pathology Office: [phone] SURGICAL PATHOLOGY REPORT NAME: JEFFRY DYE SURG PATH #: [id number] MR #: [id number] SPECIMEN CLASS: SI BILLING #: [id number] ALT ID #: LOCATION: [facility] DATE OF PROCEDURE: 07/06/2019 AGE: 64 SEX: F DATE RECEIVED: 07/06/2019 : 1955 TIME RECEIVED: 14:02 PHYSICIAN: REA OLIVO MD DATE OF REPORT: 07/10/2019 COPY TO: DATE OF PRINTIN07/14/2019 Procedures/Addenda Addendum Date Ordered: 07/13/2019 Status: Signed Out Date Complete: 07/13/2019 By: CLARISA ARIZMENDI MD Date Reported: 07/14/2019 Addendum Comment Breast Cancer Prognostic Panel by Immunohistochemistry (IHC) using Quantitative Computer-Assisted Image Analysis Testing performed on block Number: A23 (3:00 Lesion) Estrogen Receptor (ER): 95% Positive Stain Intensity: Strong Progesterone Receptor (UT): 91% Positive Stain Intensity: Strong Her2: 0 Negative Ki-67 10% Testing performed on block Number: A40 (10:00 Nodule) Estrogen Receptor (ER): 97% Positive Stain Intensity: Strong Progesterone Receptor (UT): <1% Negative Stain Intensity: Not Applicable Note: Internal control cells present and stain as expected. Her2: 0 Negative Ki-67 9% The original image analysis report is scanned in [email or web address] under Results Review. Disclaimer: The [facility] is certified under the Clinical Laboratory Improvement Amendments of 1988 (CLIA) to perform high complexity clinical laboratory testing. The Food and Drug Administration (FDA) cleared estrogen receptor/progesterone receptor (ER/UT) assays and the FDA approved Her2 assay are performed on formalin-fixed, paraffin-embedded tissue sections using the [employer] Benchmark Ultraview [place] DAB detection kit with [place] Confirm ER antibody (clone [id number]), [place] Confirm UT antibody (clone [id number]), and [place] Pathway Her2/luis e antibody (clone [id number]). Ki-67 is performed using Dako Flex Ki-67 antibody (clone [id number]) with Dako Flex Dab detection kit on autostainer Link 48. Interpretations of the ER/UT and Her2 results follow the most current [place] Society of Clinical Oncology/College of [place] Pathologists (ASCO/CAP) guidelines. Known positive and negative control tissues show appropriate staining. Cold ischemic time and formalin fixation time of the tissue meet the ASCO/CAP requirements unless noted in the original pathology report. This assay has not been validated on decalcified tissues. The image analysis is performed using [employer] Image Analysis system (v5.6.2). CLARISA ARIZMENDI MD ############################## ############################## ############ Final Diagnosis: A. Breast, "left simple mastectomy, short stitch superior, long stitch lateral", simple mastectomy: Multiple foci of invasive lobular carcinoma, histologic grade 2 (see comment). Three foci of invasive ductal carcinoma, histologic grade 2. 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 Lobular carcinoma in situ, classical type. Changes consistent with previous biopsy sites. B. Lymph nodes, "left axillary sentinel lymph node #1", biopsy: Isolated tumor cells identified in one of four lymph nodes. No extranodal extension is identified. Deeper sections and pancytokeratin staining support the presence of carcinoma. Comment: Immunohistochemical staining for smooth muscle myosin and p63 performed on block A10 demonstrates preservation of the myoepithelial layer, supporting the above diagnosis. The permanent sections and pancytokeratin immunostaining support the final diagnosis of isolated tumor cells in left axillary sentinel lymph node #1. This diagnosis is relayed to Dr. Olivo via email on July 10, 2019. INVASIVE CARCINOMA OF THE BREAST: RESECTION CAP Version: InvasiveBreast 4.3.0.1 Procedure: Simple mastectomy Laterality: Left Tumor Sites: Upper outer quadrant at 3:00 and 12:00 and upper inner quadrant at 11:00 and 10:00 Histologic Type: Invasive ductal carcinoma and invasive lobular carcinoma Size of Invasive Component: 10:00 (invasive ductal carcinoma): 0.4 x 0.4 cm 11:00 (invasive ductal carcinoma): 0.3 x 0.2 cm 12:00 (invasive ductal carcinoma): 0.2 x 0.1 cm 3:00 (multiple foci of invasive lobular carcinoma): Ranging in size from 2.1 x 2.0 x 1.0 cm 0.1 x 0.1 cm Surgical Margins: Mastectomy For invasive carcinoma: 0.7 cm from the deep margin For DCIS: 4.1 cm from the deep margin Histologic Grade (Delta Histologic Score) (all foci of invasive ductal carcinoma): II/III Tubule Formation: 3 Nuclear Grade: 2 Mitotic Count (40x objective): 1 Total Sebastien Score: 6/9 Histologic Grade (Delta Histologic Score) (all foci of invasive lobular carcinoma): II/III Tubule Formation: 3 Nuclear Grade: 2 Mitotic Count (40x objective): 1 Total Delta Score: 6/9 Ductal Carcinoma In-situ (DCIS): Present Extensive intraductal component (>25%): Present, approximately 5.0 cm in greatest dimension DCIS within and/or adjacent to invasive carcinoma: Yes DCIS separate from invasive carcinoma: Yes Lobular Carcinoma In-situ (LCIS): Present Lymph-Vascular Invasion: Present Nipple Involvement: DCIS involves nipple ducts Skin Involvement: Absent Skeletal Muscle: Not present Lymph Node Sampling: [place] lymph node(s) only Total number of lymph nodes examined: 4 Number of lymph nodes with macrometastases (>2 mm): 0 Number of lymph nodes with micrometastases (>0.2 mm to 2 mm): 0 Number of lymph nodes with isolated tumor cells (<0.2 mm and <200 cells): 1 Size of largest metastatic deposit (millimeters): Isolated tumor cells Extranodal extension: Not identified Prognostic markers: The results will be issued as an addendum. Time between tumor removal and placement into formalin < 1 hour: Yes Fixation Time between 6-72 hours: Yes Pathologic Staging (pTNM, AJCC 8th edition): p(m)T2 (sn)N0(i+) Primary Tumor (Invasive Carcinoma) (pT) pT2: Tumor >20 mm but d50 mm in greatest dimension Regional Lymph Nodes (pN) (sn): Only sentinel node(s) evaluated pN0 (i+): ITCs only (malignant cell clusters no larger than 0.2 mm) in regional lymph node(s) The pathologic stage assigned here should be regarded as provisional, as it reflects only current pathologic data and does not incorporate full knowledge of the patient's clinical status and/or prior pathology. Block for Biomarker Testing: A23 (invasive lobular carcinoma) and A40 (invasive ductal carcoma) Attestation: By this signature, I attest that I have personally formulated the final interpretation expressed in this report and that the above diagnosis is based upon my examination of the slides and/or other material indicated in this report. 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 Gross Description: A. Fixative: Fresh Labeled: "Left simple mastectomy, short stitch superior long stitch lateral" Specimen received: Simple mastectomy Weight: 548 grams Breast measurement: 18.2 x 16.3 x 5.1 cm Skin appearance and size: Nagy-white skin ellipse 15.9 x 12.1 cm Skin induration/retraction: No Nipple: 1.1 x 1.1 x 0.2 cm eccentric everted Posterior Fascia Present: Yes Fascia Adherent to Tumor: No Lesion #1: 1.4 x 1.2 x 1.0 cm 9.1 cm from the lateral margin 9.4 cm from the medial margin 7.9 cm from the superior margin 8.2 cm from the inferior margin 6.9 cm from the anterior 3.4 cm from the deep margin 2.1 cm from the nipple Lesion quadrant: Upper outer quadrant Lesion location 12:00 Metallic clip identified: Yes, S-shaped Distance between Lesion #1 and Lesion #2: 1.6 cm Lesion #2: 5.3 x 2.4 x 1.7 cm medially adjacent to lesion #2 fibrous nodular areas measuring 2.1 x 2.1 x 0.9 cm 4.1 cm from the lateral margin 10.4 cm from the medial margin 8.4 cm from the superior margin 7.9 cm from the inferior margin 4.1 cm from the anterior 4.1 cm from the deep margin 4.6 cm from the nipple Lesion quadrant: Upper outer quadrant Lesion location 3:00 Metallic clip identified: Yes, [place] clip Uninvolved breast parenchyma: 90% lobular nagy-yellow with 10% fibrous [id number] breast parenchyma Tissue sent to the [facility] Core Facility: No The deep resection margin is inked black Axillary dissection attached: No Spooler sections of the specimen are submitted as follows: A1 Spooler sections of the upper outer quadrant. A2 Spooler sections of the lower outer quadrant. A3 Spooler sections of the lower inner quadrant. A4 Spooler sections of the upper inner quadrant. A5 Spooler section of skin closest to the lesion. A6-A7 The entire nipple, serially sectioned. A8-A10 Lesion #1 entirely submitted. A11 Deep margin to lesion #1. A12 Breast parenchyma between lesion #1 and lesion #2. A13-A26 Lesion #2 entirely and sequentially submitted from medial to lateral. A27 Closest deep margin to lesion #2. A28-A30 Medially adjacent nodular area to lesion #2. A31-A39 breast parenchyma at 12:00 adjacent lesion #1 A40. Nodule at 10:00 The breast is removed from the patient at 1358, placed in formalin at 1451 and not removed from formalin until 0400 on July 07, 2019. ([facility]) Juan. Received fresh, labeled the patient's name and "left axillary sentinel lymph node #1" are multiple, irregular, nagy-yellow portions of fibroadipose tissue measuring in aggregate 4.8 x 3.5 x 1.9 cm. The specimen is palpated to reveal four possible lymph nodes ranging from 0.3-2.8 cm in greatest dimension. The possible lymph nodes are serially sectioned and entirely submitted for frozen consultation with the remnant being placed as follows: B1FS Three possible lymph nodes (inked green, blue, black). B2FS One possible lymph node. ([facility]) [facility]/07/06/2019 Intraoperative Consultation: [id number], lymph nodes (4), "left axillary sentinel lymph node #1", excision: Negative for malignancy. Frozen section performed at the [facility], [address], [place] [address]. MONROE FRYE MD If immunohistochemical stains and/or in situ hybridization are cited in this report, the performance characteristics were determined by the Department of Pathology and Laboratory Medicine of the [facility] ([employer]) in compliance with CLIA'88 regulations. Some of these tests rely on the use of "analyte specific reagents" and are subject to specific labeling requirements by the FDA. Known positive and negative control tissues demonstrate appropriate staining. Results should be interpreted with caution given the likelihood of false negativity on decalcified specimens. This testing was developed by the Department of Pathology and Laboratory Medicine of the [facility]. It has not been cleared or approved by the FDA. The FDA has determined that such clearance or approval is not necessary. Specimen Tissue - Breast,Left Tissue - Axilla Performing Organization Address [facility] one Number MAIN LAB [address] [place] [address] * BREAST SPEC PATH ONLY/NO RAD READ (07/06/2019 11:35 AM EXTERNAL AUDITOR) Specimen Narrative Performed At This order has been auto finalized and does not conta in a result. [facility] RAD MAMMO Performing Organization Address [facility] Ph one Number RAD MAMMO * POC GLUCOSE (07/06/2019 11:18 AM EXTERNAL AUDITOR) Glucose, POC 115 (H) 70 - 100 MG/DL MAIN LAB Specimen Performing Organization Address [facility] one Number MAIN LAB [address] [place] [address] * TELEMETRY STRIPS-SCAN (07/06/2019 12:00 AM EXTERNAL AUDITOR) Narrative Performed At This result has an attachment that is n ot available. Ordered by an unspecified provider. * TUMOR PROGNOSTIC MARKERS SCAN (07/06/2019 12:00 AM EXTERNAL AUDITOR) Narrative Performed At This result has an attachment that is n ot available. Ordered by an unspecified provider. documented in this encounter Visit Diagnoses Diagnosis Malignant neoplasm of upper-outer quadr ant of left female breast, unspecified estrogen receptor status (HCC) documented in this encounter Admitting Diagnoses Diagnosis Breast cancer (HCC) Malignant neoplasm of breast (female), unspecified site documented in this encounter Administered Medications Action Date Dose Rate Site Medication Order MAR Action 07/06/2019 8:56 PM EXTERNAL AUDITOR 20 mg atorvastatin (LIPITOR) tablet 20 mg Given 20 mg, Oral, AT BEDTIME DAILY, First dose on Sat07/06/19 at 2100, Until Discontinued 07/06/2019 4:19 PM EXTERNAL AUDITOR 50 mcg fentaNYL citrate PF (SUBLIMAZE) Given injection 50 mcg 50 mcg, Intravenous, EVERY 5 MIN PRN, Starting Sat07/06/19 at 1502, Until Sat07/06/19 at 1646, Pain Injectable, For Pain Score 4-6, Maximum total dose 200 mcg Hold if RR < 10, PACU (only) 50 mcg Given 07/06/2019 3:52 PM EXTERNAL AUDITOR 50 mcg Given 07/06/2019 3:46 PM EXTERNAL AUDITOR 07/07/2019 8:57 AM EXTERNAL AUDITOR 0.5 mL Deltoid, Right influenza (=>6 MO)(QUADrivalent) Given (FLULAVAL) 60 mcg (15 mcg x 4)/0.5 mL PF syringe 0.5 mL 0.5 mL, Intramuscular, ONCE - UNTIL ADMIN, 1 dose, 07/07/19 at 0745, - Administer when stable and temp <38.3 C (afebrile) for 24 hours. Reschedule fo r 0900 the next day if unable to administer. - Per hospital protocol, please discuss risks and benefits with patient prior to administration of the vaccine(s). - SQ administration is reserved for patients with bleeding disorders at the discretion of the prescriber. - NOTE: If dose unavailable , send InSo1et message to pharmacy, 07/06/2019 2:40 PM EXTERNAL AUDITOR lactated ringers infusion Given - New 1,000 mL, 1,000 mL, Intravenous, at 20 Bag mL/hr, CONTINUOUS, Starting Sat07/06/19 at 1030, Until Sat07/06/19 at 1653, Pre-Op 1,000 mL 20 mL/hr Given - New Bag 07/06/2019 10:50 AM EXTERNAL AUDITOR 07/07/2019 8:56 AM EXTERNAL AUDITOR 2.5 mg lisinopril (ZESTRIL) tablet 2.5 mg Given 2.5 mg, Oral, DAILY, First dose on Sat07/07/19 at 0900, Until Discontinued 07/06/2019 5:46 PM EXTERNAL AUDITOR 2 mg morphine injection 2-4 mg Given 2-4 mg, Intravenous, EVERY 2 HOURS PRN , Starting Sat07/06/19 at 1653, Until Sat07/07/19 at 1343, Pain Injectable 07/07/2019 4:13 AM EXTERNAL AUDITOR 5 mg oxyCODONE (ROXICODONE) tablet 5-10 mg Given 5-10 mg, Oral, EVERY 6 HOURS PRN, Starting Sat07/06/19 at 1653, Until Sat07/07/19 at 1343, Pain PO 07/07/2019 8:57 AM EXTERNAL AUDITOR 1 tablet senna/docusate (SENOKOT-S) tablet 1 Given tablet 1 tablet, Oral, TWICE DAILY, First dose on Sat07/06/19 at 2100, Until Discontinued, Hold for loose stools, 1 tablet Given 07/06/2019 8:56 PM EXTERNAL AUDITOR 07/06/2019 7:12 PM EXTERNAL AUDITOR 100 mL/hr sodium chloride 0.45 % with KCl 20 Dose/Rate mEq/L infusion Verify 1,000 mL, Intravenous, at 100 mL/hr, CONTINUOUS, Starting Sat07/06/19 at 1700, Until Sat07/07/19 at 1343, Lock IV fluids after patient tolerating oral intake., 100 mL/hr Given - New Bag 07/06/2019 5:23 PM EXTERNAL AUDITOR documented in this encounter
--- OUTSIDE RECORDS SUMMARY | 2019-10-19 08:29 | XMS REPORT | Encounter Summary ---
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 Pt reports and shows doc umentation of drain output <30ml/ 24hour period x 2 consecutive days. [place] drain site free from signs of infection or leakage. Physician approval for drain removal obtained. 2 drain(s) removed, pt tolerated procedure well without incident. Dressing placed and care instructions given. Pt verbalized understanding and denies further questions/ needs at this time. Pt has contact information. Procedure: Drain Removal The drain was removed with gentle traction and inspected and found to be intact. The site was covered with gauze and paper tape. 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
--- OUTSIDE RECORDS SUMMARY | 2019-10-19 08:29 | XMS REPORT | Encounter Summary ---
Author Author [facility] Organization [facility] Address Unknown Phone Unavailable Care Team Providers Care Tungsten Refiner Name Role Phone Sameera Smith MD PCP Reason for Visit * Auth/Cert Referred By Contact Referred To Contact Status Reason Specialty Diagnoses / Procedures Diagnoses Malignant neoplasm of upper-outer quadrant of left female breast, unspecified estrogen receptor status (HCC) Malignant neoplasm of upper-outer quadrant of left female breast, unspecified estrogen receptor status (HCC) [C50.412] P rocedures CA MASTECTOMY SIMPLE COMPLETE CA INTRAOP SENTINEL LYMPH NODE ID W/DYE INJECTION CA INJ RADIOACTIVE TRACER FOR ID OF SENTINEL NODE CA BX/EXC LYMPH NODE OPEN DEEP AXILLARY NODE CA AXILLARY LYMPHADENECTOMY COMPLETE LEFT TOTAL MASTECTOMY IDENTIFICATION SENTINEL LYMPH NODE INJECTION RADIOACTIVE TRACER FOR SENTINEL NODE IDENTIFICATION LEFT SENTINEL LYMPH NODE BIOPSY POSSIBLE LEFT AXILLARY LYMPH NODE DISSECTION Encounter Details Care Team Description [place] [address] [place], [place] [id number] Sameera Salter CRNA [address] [place], [place] [address] 07/06/2019 Anesthesia [facility] [place] [address] [place] [address] Anesthesia Record Responsible Anesthesiologist Anesthesia Start Time [...] the receiving nurse. 1525 An Stop Meds Name Total midazolam (VERSED) 1 mg/mL injection 2 mg fentaNYL PF (SUBLIMAZE) injection 200 mcg lidocaine (2%) 200 mg/10mL Injection 80 mg syringe propofol (DIPRIVAN) 200 mg/ 20 mL 150 mg injection (VIAL) ondansetron (ZOFRAN) injection 4 mg dexamethasone (DECADRON) 4 mg/mL 10 mg injection famotidine (PEPCID) injection 20 mg diphenhydrAMINE (BENADRYL) injection 25 mg ceFAZolin (ANCEF) IVP 2 g 2 g ePHEDrine injection 5 mg lactated ringers infusion 1,000 mL * Name O2 N2O Inspired Sevoflurane Inspired Sevoflurane * No blood administrations on file. Removal Type Details Placement Suprag[place]ott 07/06/19; 1312; Ventilated by mask (1); 07/06/19 1312 by ic Airway LMA; 4; 1 insertion attempt; [place], Auscultation, End-tidal CO2 DRILLING RIG OPERATOR [place] 07/06/19; 1424; Left; Chest; 15 FR; #1 07/06/19 1424 by Abhinav Price RN Drain [place] 07/06/19; 1432; Chest; 15 FR; #2 07/06 1432 by Abhinav Price RN Drain Wounds 07/06/19; 1433; Left; Chest; Surgical 07/06/19 1433 by Albert, (NOT for Incision BRIAN Miller Pressure Injuries) Wounds 07/06/19; 1433; Left; Axilla; Surgical 07/06/19 1433 by Albert, (NOT for Incision BRIAN Miller Pressure Injuries) 07/07/19 1026 by Jyothi Gonzáles RN Peripheral 07/06/19; 1050; RN; R; Lower; Forearm; 07/06/19 1050 by Corpin, IV 20 G; No; 1; Therapy completed; Hannah [...] impairment: No documented as of this encounter OR Notes * Anesthesia Postprocedure Evaluation - Cynthia Yang MD - 07/06/2019 5:38 PM HOURLY SIGN LANGUAGE INTERPRETER Post-Anesthesia Evaluation Name: Ximena William : 1955 Age: 64 y.o . Sex: female Procedure Date: 07/06/2019 Procedure(s) (LRB): LEFT TOTAL MASTECTOMY (Left) IDENTIFICATION SENTINEL LYMPH NODE (Left) INJECTION RADIOACTIVE TRACER FOR SENTINEL NODE IDENTIFICATION (Left) LEFT SENTINEL LYMPH NODE BIOPSY (Left) Surgeon: Surgeon(s): Rea Morgan MD Dhar, Sakshi, MD Post-Anesthesia Vitals BP: 140/73 (07/060) Temp: 36.6 C (97.8 F) (07/06 1651) Pulse: 70 (07/06 1718) Respirations: 16 PER MINUTE (07/06 1718) SpO2: 96 % (07/06 1718) SpO2 Pulse: 75 (07/06 1651) Height: 175.3 cm (69") (07/06 1040) Vitals Value Taken Time BP 150/72 07/06/2019 4:30 PM Temp 36.3 C (97.4 F) 07/06/2019 4:30 PM Pulse 82 07/06/2019 4:30 PM Respirations 18 PER MINUTE 07/06/2019 4:30 PM SpO2 93 % 07/06/2019 4:30 PM Post Anesthesia Evaluation Note Evaluation location: Pre/Post Patient participation: recovered; patient participated in evaluation Level of consciousness: alert Pain score: 4 Pain management: adequate Hydration: normovolemia Temperature: 36.0C - 38.4C Airway patency: adequate Perioperative Events Post-op nausea and vomiting: no PONV Postoperative Status Cardiovascular status: hemodynamically stable Respiratory status: spontaneous ventilation Follow-up needed: none Perioperative Events Perioperative Event: No Emergency Case Activation: No LY SIGN LANGUAGE INTERPRETER * Anesthesia Preprocedure Evaluation - Noah Rosenbaum MD - 07/01/2019 1:03 PM HOURLY SIGN LANGUAGE INTERPRETER Anesthesia Pre-Procedure Evaluation Name: Ximena William : 1955 Age: 64 y.o . Sex: female Procedure Date: 07/06/2019 Procedure(s) (LRB): LEFT TOTAL MASTECTOMY (Left) IDENTIFICATION SENTINEL LYMPH NODE (Left) INJECTION RADIOACTIVE TRACER FOR SENTINEL NODE IDENTIFICATION (Left) LEFT SENTINEL LYMPH NODE BIOPSY (Left) POSSIBLE LEFT AXILLARY LYMPH NODE DISSECTION (Left) Physical Assessment Vital Signs (last filed in past 24 hours): BP: 127/69 (07/06 1047) Temp: 36.6 C (97.8 F) (07/06 1047) Pulse: 65 (07/06 1047) Respirations: 19 PER MINUTE (07/06 1047) SpO2: 98 % (07/06 1047) Height: 175.3 cm (69") (07/06 1040) Weight: 86.7 kg (191 lb 3.2 oz) (07/06 1040) Patient History Allergies Allergen Reactions Acetaminophen SEE COMMENTS Chest Pain Current Medications Medication Directions aspirin EC 81 mg tablet Take 81 mg by mouth daily. atorvastatin (LIPITOR) 20 mg tablet Take 20 mg by mouth at bedtime daily. calcium carbonate (TUMS) 500 mg (200 mg elemental calcium) chewable tablet Chew 1,000 mg by mouth daily as needed. Indications: heartburn clopiDOGrel (PLAVIX) 75 mg tablet Take 75 mg by mouth daily. fish oil- omega 3-DHA/EPA 300/1,000 mg capsule Take 1 capsule by mouth daily. lisinopril (ZESTRIL) 2.5 mg tablet Take 2.5 mg by mouth daily. Sitagliptin-Metformin (JANUMET) 50-500 mg tab Take 1 tablet by mouth twice daily with meals. vitamins, multiple tablet Take 1 tablet by mouth daily. Medical History: Diagnosis Date Breast cancer (HCC) 2019 GERD (gastroesophageal reflux disease) tums prn Heart disease HTN (hypertension) Hyperlipidemia CT (myocardial infarction) ([facility]) 2017 stent placed Type II diabetes mellitus ([facility]) Surgical History: Procedure Laterality Date BREAST SURGERY Right 1998 lumpectomy HX HEART CATHETERIZATION 2017 stent x 1 CHOLECYSTECTOMY open COLONOSCOPY Social History Tobacco Use Smoking status: Heavy Tobacco Smoker Packs/day: 1.00 Years: 43.00 Pack years: 43.00 Types: Cigarettes Smokeless tobacco: Never Used Tobacco comment: less then 1 ppd currently Substance Use Topics Alcohol use: Not Currently Drug use: Never Review of Systems/Medical History Patient summary reviewed Pertinent labs reviewed PONV Screening: Female gender and Postoperative opioids No history of anesthetic complications No family history of anesthetic complications Airway - negative Pulmonary Current smoker (1ppd x 43 years); patient smoked on day of surgery no COPD Cardiovascular Recent diagnostic studies: echocardiogram and stress test 10/08/2016 Well preserved global LV systolic function with an EF approximately 60% Trivial MR and tricuspid regurgitation Pulmonary artery systolic pressure is estimated to be approximately 35 mm Hg No evidence of any significant valvular stenosis. Resting and Post Regadenoson SPECT CT imaging 04/16/2017 No evidence of significant myocardial ischemia or infarction on this study. Normal regional wall motion Normal global left ventricular systolic function with a calculated EF of 66% Exercise tolerance: >4 METS Beta Adelaida therapy: No Hypertension, well controlled Past CT, > 6 months PTCA (stent x 1-RCA 10/02/2016) Palpitations (pt reports "fluttering" occasionally-not new symptom and Cardi ologist is aware of this) PVD (bilateral carotid artery stenosis-monitored by Manager Gift. Pt states it is mild and not enough stenosis to warrant surgical intervention. Taking A, Plavix and statin) Hyperlipidemia (statin) Dyspnea on exertion (heavy exertion) Plavix and ASA daily Pt follows with Manager Gift, Dr. Mathew in [place], [place]-last OV 06/04/2019. D enies changes in symptoms or functional capacity since last seen. Pt denies CP, SOB, edema, orthopnea, syncope GI/Hepatic/Renal GERD (TUMS prn), well controlled No hx of liver disease No renal disease Neuro/Psych - negative Musculoskeletal - negative Endocrine/Other Diabetes (unknown control. pt does not check BSs at home and unknown A1c), type 2 Malignancy (L Breast Ca) Constitution - negative Physical Exam Airway Findings Mallampati: II TM distance: >3 FB Neck ROM: full Mouth opening: good Airway patency: adequate Dental Findings: Upper dentures and lower dentures Cardiovascular Findings: Rhythm: regular Rate: normal No murmur, no carotid bruit, no peripheral edema Pulmonary Findings: Breath sounds clear to auscultation. Neurological Findings: Negative Alert and oriented x 3 Constitutional findings: Negative Diagnostic Tests Hematology: Lab Results Component Value Date HGB 13.8 05/28/2019 HCT 41.1 05/28/2019 PLTCT 178 05/28/2019 WBC 8.1 05/28/2019 NEUT 64 05/28/2019 ANC 5.30 05/28/2019 ALC 2.30 05/28/2019 RENEA 5 05/28/2019 AMC 0.40 05/28/2019 EOSA 2 05/28/2019 ABC 0.10 05/28/2019 MCV 92.0 05/28/2019 MCH 30.8 05/28/2019 MCHC 33.5 05/28/2019 MPV 9.1 05/28/2019 RDW 14.3 05/28/2019 General Chemistry: Lab Results Component Value Date NA 137 07/01/2019 K 4.1 07/01/2019 CL 101 07/01/2019 CO2 24 07/01/2019 GAP 12 07/01/2019 BUN 22 07/01/2019 CR 1.12 07/01/2019 GLU 159 07/01/2019 CA 10.2 07/01/2019 ALBUMIN 4.5 05/28/2019 TOTBILI 0.3 05/28/2019 Coagulation: No results found for: PT, PTT, INR Anesthesia Plan ASA score: 3 Plan: general Induction method: intravenous NPO status: acceptable Informed Consent Anesthetic plan and risks discussed with patient. Plan discussed with: DRILLING RIG OPERATOR and surgeon/proceduralist. EKG: SR rate 67 bpm Labs: BMP; reviewed CBC from 05/28/2019-wnl GIUSEPPE: Reviewed Cardiology OVN from 06/04/2019 Consults: Per Cardiology (Dr. Mathew), "We feel she is stable from a cardiac sta ndpoint. We feel her risk for non-cardiac surgery is intermediate based on clin ical evaluation carried out today. We feel it would be reasonable to proceed. We have discussed with her her cardiac risk and she verbalizes understanding." LY SIGN LANGUAGE INTERPRETER documented in this encounter Plan of Treatment Not on filedocumented as of this encounter Visit Diagnoses Not on filedocumented in this encounter Administered Medications Action Date Dose Rate Site Medication Order MAR Action 07/06/2019 1:13 PM HOURLY SIGN LANGUAGE INTERPRETER 2 g ceFAZolin (ANCEF) IVP 2 g Given 2 g, Intravenous, ONCE, 1 dose, 07/06/19 at 1030, Give Pre-Op < 60 minutes prior to first incision. Re-dos e every 4 hrs while in procedure (Given i n OR). IV PUSH -- RECONSTITUTE each 1 g vial by adding 10 mL 0.9% NACL, for patients < 120 kg, Pre-Op 07/06/2019 1:12 PM HOURLY SIGN LANGUAGE INTERPRETER 10 mg dexamethasone (DECADRON) injection Given Intravenous, INTRA-PROCEDURE MED, Starting Sat07/06/19 at 1312, Until Sat07/06/19 at 1528, Anesthesia Intra-op 07/06/2019 1:08 PM HOURLY SIGN LANGUAGE INTERPRETER 25 mg diphenhydrAMINE (BENADRYL) injection Given INTRA-PROCEDURE MED, Starting Sat07/06/19 at 1308, Until Sat07/06/19 at 1528, Anesthesia Intra-op 07/06/2019 1:21 PM HOURLY SIGN LANGUAGE INTERPRETER 5 mg ePHEDrine injection Given INTRA-PROCEDURE MED, Starting Sat07/06/19 at 1321, Until Sat07/06/19 at 1528, Anesthesia Intra-op 07/06/2019 1:08 PM HOURLY SIGN LANGUAGE INTERPRETER 20 mg famotidine (PEPCID) injection Given INTRA-PROCEDURE MED, Starting Sat07/06/19 at 1308, Until Sat07/06/19 at 1528, Anesthesia Intra-op 07/06/2019 2:33 PM HOURLY SIGN LANGUAGE INTERPRETER 25 mcg fentaNYL citrate PF (SUBLIMAZE) Given injection INTRA-PROCEDURE MED, Starting Sat07/06/19 at 1309, Until Sat07/06/19 at 1528, Anesthesia Intra-op 25 mcg Given 07/06/2019 2:18 PM HOURLY SIGN LANGUAGE INTERPRETER 50 mcg Given 07/06/2019 1:54 PM HOURLY SIGN LANGUAGE INTERPRETER 07/06/2019 2:40 PM HOURLY SIGN LANGUAGE INTERPRETER lactated ringers infusion Given - New 1,000 mL, 1,000 mL, Intravenous, at 20 Bag mL/hr, CONTINUOUS, Starting Sat07/06/19 at 1030, Until Sat07/06/19 at 1653, Pre-Op 1,000 mL 20 mL/hr Given - New Bag 07/06/2019 10:50 AM HOURLY SIGN LANGUAGE INTERPRETER 07/06/2019 1:09 PM HOURLY SIGN LANGUAGE INTERPRETER 80 mg lidocaine (PF) injection Given INTRA-PROCEDURE MED, Starting Sat07/06/19 at 1309, Until Sat07/06/19 at 1528, Anesthesia Intra-op 07/06/2019 1:04 PM HOURLY SIGN LANGUAGE INTERPRETER 2 mg midazolam (VERSED) injection Given Intravenous, INTRA-PROCEDURE MED, Starting Sat07/06/19 at 1304, Until Sat07/06/19 at 1528, Anesthesia Intra-op 07/06/2019 2:22 PM HOURLY SIGN LANGUAGE INTERPRETER 4 mg ondansetron (ZOFRAN) injection Given Intravenous, INTRA-PROCEDURE MED, Starting Sat07/06/19 at 1422, Until Sat07/06/19 at 1528, Anesthesia Intra-op 07/06/2019 1:09 PM HOURLY SIGN LANGUAGE INTERPRETER 150 mg propofol (DIPRIVAN) injection Given INTRA-PROCEDURE MED, Starting Sat07/06/19 at 1309, Until Sat07/06/19 at 1528, Anesthesia Intra-op documented in this encounter
--- OUTSIDE RECORDS SUMMARY | 2019-10-19 08:29 | XMS REPORT | Encounter Summary ---
Author Author [facility] Organization [facility] Address Unknown Phone Unavailable Care Team Providers Care Senior Scrum Master Name Role Phone Sameera Smith MD PCP Reason for Visit * Reason Comments Surgical Followup drain removal Encounter Details Care Team Description Date [place] [address] [place] [address] [phone] Surgical Followup (drain removal) 07/20/2019 Telephone [facility] [address] [id number] Social History Date Tobacco Use Types Packs/Day [...] impairment: No documented as of this encounter Miscellaneous Notes * Telephone Encounter - Katy Frank RN - 07/20/2019 11:28 AM STORE STOCKER Pt called back to inform RN that she would like to come today at 2 for drain rem oval as she does have a ride now. Informed pt that this would be fine, and we'll see her today at 2. Location details reviewed. Pt verbalized understanding, agr ees to plan, and denies further questions/ needs at this time. Pt has contact in formation. E STOCKER * Telephone Encounter - Katy Frank RN - 07/20/2019 10:18 AM STORE STOCKER Called pt to follow up on KALPANA drain output. Pt reports drain output for drain #1 as 20/15 for the last two days, drain #2 output minimal and not measurable. Due to her ride, pt prefers to come in tomorrow at [facility] at 0900 for drain removal. Ramez se only appt made. Pt verbalized understanding, agrees to plan, and denies furth er questions/ needs at this time. Pt has contact information. E STOCKER documented in this encounter Plan of Treatment Not on filedocumented as of this encounter Visit Diagnoses Not on filedocumented in this encounter
--- OUTSIDE RECORDS SUMMARY | 2019-10-19 08:29 | XMS REPORT | Clinical Summary ---
Author Author [facility] Organization [facility] Address Unknown Phone Unavailable Care Team Providers Care Reconstructive Surgeon Name Role Phone Sameera Smith MD PCP Source Comments Some departments are not documenting in the electronic medical record. If you d o not see the information that you expected, contact Release of Information in [facility] [employer] Information Management department at [phone] for further assistan ce in locating additional records.[facility] Allergies Comments Active Allergy Reactions Severity Noted Date Chest Pain Acetaminophen SEE COMMENTS Medium 10/02/2016 Medications End Date Status Medication Sig Dispensed Refills Start Date Active clopiDOGrel (PLAVIX) 75 Take 75 mg by 0 201 mg tabletIndications: mouth daily. 7 RESUME 72 HOURS (3 DAYS) AFTER SURGERY. Active atorvastatin (LIPITOR) 20 Take 20 mg by 0 mg tablet mouth at bedtime daily. Active lisinopril (ZESTRIL) 2.5 Take 2.5 mg 0 mg tablet by mouth daily. Active aspirin EC 81 mg Take 81 mg by 0 tabletIndications: RESUME mouth daily. 7 72 HOURS (3 DAYS) AFTER SURGERY Active Sitagliptin-Metformin Take 1 tablet 0 04/09/20 1 (JANUMET) 50-500 mg tab by mouth 8 twice daily with meals. Active vitamins, multiple tablet Take 1 tablet 0 by mouth daily. Active fish oil- omega 3-DHA/EPA Take 1 0 300/1,000 mg capsule by capsuleIndications: DO mouth daily. NOT RESUME UNTIL YOUR POST-OPERATIVE APPOINTMENT. Active calcium carbonate (TUMS) Chew 1,000 mg 0 500 mg (200 mg elemental by mouth calcium) chewable daily as tabletIndications: needed. heartburn Indications: heartburn Active oxyCODONE (ROXICODONE) 5 Take one 16 tablet 0 1 2/10/201 mg tablet tablet to two 9 tablets by mouth every 6 hours as needed for Pain (rated 5/10 or higher) Do not exceed 6 tabs in a 24 hour period. Active senna/docusate Take one 15 tablet 1 (SENOKOT-S) 8.6/50 mg tablet by 9 tablet mouth twice daily. To prevent constipation while taking pain medication. Active Problems Problem Noted Date Breast cancer 07/06/2019 Malignant neoplasm of upper-outer quadrant of left br east in female, 05/26/2019 estrogen receptor positive Cancer Staging: Clinical: Stage IB (cT2 , cN0, cM0, G2, ER+, MT+, HER2-) - Signed by Hannah Santa APRN on 2018 Pathologic: Stage IB (pT2, pN0(i+)(sn), cM0, G2, ER+, MT+, HER2-) - Signed by Hannah Santa APRN on 07/13/2019 Overview: Diagnosis: Left multifocal breast cancer, dx 05/17 19 - Grade 2, DCIS with focal grade 2, IDC (ER90%, PR90%, Her2 0+, Ki-67 20%) at 12:00 - Grade 2, DCIS with ILC (ER90%, PR80%, Her2 0+ Ki-67 14%) at 3:00 History: Ms. William is a female who pr esented to the [facility] on 05[facility]28/2019 at age 64 for eval uation of her left breast cancer. A left breast mas was felt by her provide r on clinical exam in March 2019. Bilateral diagnostic mammograms s howed an area of density in the palpable area of concern at 3:00, a mas s in the subareolar area, and a small nodular density in the medial lef t breast. Left breast ultrasound showed a 1.3 cm circumscribed hypoechoi c mass at 12:00, retroareolar area an ill-defined region of hypoechogenici ty suggestive of a heterogeneous mass measuring 4 cm at 3:00 in the palp able area of concern. no concerning finding was seen in the medial left peter ast. Biopsy of the two masses was recommended. Left breast biopsies on showed a grade 2, DCIS with focal, grade 2 invasive ductal carcinom a (1 mm) at 12:00 and grade 2, DCIS with invasive lobular carcinoma at 3:00 . She underwent left mastectomy/SLNB on 07/06/19. Surgical pathology showed m ultifocal ILC and IDC - 10:00 (invasive ductal carcinoma): 0.4 x 0.4 cm 11:00 (invasive ductal carcinoma): 0.3 x 0.2 cm 12:00 (invasiv e ductal carcinoma): 0.2 x 0.1 cm 3:00 (multiple foci of invasive lobular carcinoma): Ranging in size from 2.1 x 2.0 x 1.0 cm 0.1 x 0.1 cm. There was 1/4 SLNs with ITCs. No extranodal extension is identified. Breast Imaging: Mammogram: - Bilateral diagnostic mammograms ([facility]) showed scattered fibroglandular densities bilaterally. T here were scattered benign calcifications bilaterally. There was a n area of asymmetric density in the upper and outer aspect of the left stephen st just deep to the area of palpable abnormality. In addition, there was a c ircumscribed, slightly lobulated mass in the retroareolar and slightly l ateral aspect of the left breast. There were some associated benign calci fications. A small nodular density in the medial aspect of the left breast , 4-5 cm FTN was noted, best seen on the CC view. No definite correlate on t he MLO view was identified. No malignant appearing calcifications were identified. The axillae were unremarkable. Ultrasound: - Left breast ultrasound 04/15/19 ([facility]) showed a 1.3 cm circumscribed hypoechoic mass at 12:00, retroareolar area. No definite internal vascularity was seen. This did appeared to be solid. At 3:00, corresponding to the area of palpable c oncern, there was an ill-defined region of hypoechogenicity suggestive o f a heterogeneous mass measuring 4 cm. This did show some internal vascula rity. The inner left breast was also evaluated. No concerning mass was seen. No definite concerning axillary lymph node was identified. BIRADS 4, bi opsy of both findings was recommended. Pertinent PMH: Hx of AK in 2017 (stent placed), Hx of smoking 1 PPD x 43 years, hyperlipidemia, HTN, Type II DM. Boat Builder And Repairer is Dr. Mathew in [place], [place] Family History: Sister with breast canc er in her 40's (genetic testing negative), niece with breast cancer in her 40's (brother's daughter), and father had prostate cancer Reproductive health: Age at Menarche: 13 Age at First Live : 18 Age at Menopause: 47, no HRT : 2 Para: 2 : Did not breast feed Physical Exam on Presentation: Right b reast- no palpable masses or skin changes. Left breast- 1 cm mass at 12:0 0, SA area and 3 x 4 cm mass at 2-3:00, centered 4 cm FTN. No skin redd ges. No axillary, infraclavicular, or supraclavicular adenopathy. Referred by: Dr. Sameera Smith Encounters Care Team Description Date Type Specialty Rea Morgan MD 07/20/2019 Documentation Oncology Rea Morgan MD Surgical Followup (drain removal) 07/20/2019 Telephone Oncology from Last 3 Months Immunizations Name Administration Dates Next Due Flu Vaccine =>6 Months 07/07/2019 Quadrivalent PF Family History Medical History Relation Name Comments Cancer-Prostate Father Diabetes Mother Heart Disease Mother Cancer-Breast Other neice 40's Cancer-Breast Sister 40's, genetic testi ng negative Relation Name Status Comments Father Mother Other neice Alive Sister Alive Social History Date Tobacco Use Types Packs/Day [...] Travel Start No recent travel history available. Last Filed Vital Signs Reading Time Taken Comments Vital Sign 109/67 07/16/2019 1:59 PM SEQUINS SLINGER Blood Pressure 79 07/16/2019 1:59 PM SEQUINS SLINGER Pulse 36.8 C (98.2 F) 07/16/2019 1:59 PM SEQUINS SLINGER Temperature 14 07/16/2019 1:59 PM SEQUINS SLINGER Respiratory Rate 98% 07/16/2019 1:59 PM SEQUINS SLINGER Oxygen Saturation - - Inhaled Oxygen Concentration 86.2 kg (190 lb) 07/16/2019 1:59 PM SEQUINS SLINGER Weight 175.3 cm (5' 9.02") 07/16/2019 1:59 PM SEQUINS SLINGER Height 28.05 07/16/2019 1:59 PM SEQUINS SLINGER Body Mass Index Plan of Treatment Health Maintenance Due Date Last Done Comments HEPATITIS C SCREENING 1955 DTAP/TDAP VACCINES (1 - 1966 Tdap) HIV SCREENING 1970 PHYSICAL (COMPREHENSIVE) 1973 EXAM CERVICAL CANCER SCREENING 02/12/1976 BREAST CANCER SCREENING 1995 COLORECTAL CANCER 2005 SCREENING SHINGLES RECOMBINANT 2005 VACCINE (1 of 2) INFLUENZA VACCINE Completed 07/07/2019 Results Not on filefrom Last 3 Months Insurance Type Payer Benefit Subscriber ID Effective Phone Address Plan / Dates Group [employer] MEDICAID AETNA xxxxxxxxxxx 2019[place] [phone] Advance Directives Patient Armature Winder Repair Helper Explanation Type Date Recorded Advance 05/28/2019 9:50 AM Directive/DPOA Date Inactivated Comments Code Status Date Activated 07/07/2019 1:49 PM Full Code 07/06/2019 4:53 PM Provider has discussed Code Status No, more discussi on w/Patient or Family? needed
--- OUTSIDE RECORDS SUMMARY | 2019-10-19 08:29 | XMS REPORT | Encounter Summary ---
Author Author [facility] Organization [facility] Address Unknown Phone Unavailable Care Team Providers Care Comparator Operator Name Role Phone Sameera Smith MD PCP Reason for Visit * Auth/Cert Referred By Contact Referred To Contact Status Reason Specialty Diagnoses / Procedures Diagnoses Malignant neoplasm of upper-outer quadrant of left female breast, unspecified estrogen receptor status (HCC) Malignant neoplasm of upper-outer quadrant of left female breast, unspecified estrogen receptor status (HCC) [C50.412] P rocedures AL MASTECTOMY SIMPLE COMPLETE AL INTRAOP SENTINEL LYMPH NODE ID W/DYE INJECTION AL INJ RADIOACTIVE TRACER FOR ID OF SENTINEL NODE AL BX/EXC LYMPH NODE OPEN DEEP AXILLARY NODE AL AXILLARY LYMPHADENECTOMY COMPLETE LEFT TOTAL MASTECTOMY IDENTIFICATION SENTINEL LYMPH NODE INJECTION RADIOACTIVE TRACER FOR SENTINEL NODE IDENTIFICATION LEFT SENTINEL LYMPH NODE BIOPSY POSSIBLE LEFT AXILLARY LYMPH NODE DISSECTION Encounter Details Care Team Description [place] [address] [place] [address] LEFT TOTAL MASTECTOMY 07/06/2019 Surgery [facility] [place] [address] [place] [address] Social History Date Tobacco Use Types Packs/Day [...] Comments Vital Sign 110/58 07/07/2019 10:22 AM HAND EDGER Blood Pressure 67 07/07/2019 2:43 AM HAND EDGER Pulse 36.6 C (97.8 F) 07/07/2019 10:22 AM HAND EDGER Temperature - - Respiratory Rate 97% 07/07/2019 10:22 AM HAND EDGER Oxygen Saturation - - Inhaled Oxygen Concentration 86.7 kg (191 lb 2.2 oz) 07/06/2019 4:51 PM HAND EDGER Weight 175.3 cm (5' 9") 07/06/2019 10:40 AM HAND EDGER Height 28.23 07/06/2019 10:40 AM HAND EDGER Body Mass Index documented in this encounter [...] Jyothi Gonzáles RN - 07/07/2019 10:28 AM HAND EDGER Discharge instructions given to pt and famliy and pt demonstrated stripping and emptying KALPANA drains. Belongings with pt and family and no home meds to return. IV dc'd and pt ambulated with staff to vehicle and transported home by family. EDGER * Jyothi Gonzáles RN - 07/07/2019 7:48 AM HAND EDGER Pt assessment completed. Pt sitting up in chair and finished breakfast. Pt den ies pain. Drsg C/D/I and KALPANA patent. Pt has no other needs or complaints and up ad giancarlo. Call light within reach. EDGER * Sameera Jackson PA-C - 07/07/2019 7:04 AM HAND EDGER Breast Surgery Progress Note A/P: 64 year [...] Ambulating. O: Temp: 36.6 C (97.8 F) (07/07 243) Pulse: 67 (07/07 243) Respirations: 18 PER MINUTE (07/07 243) BP: 128/72 (07/07 024) Date 07/06/19 0701 - 07/07/19 0700 07/07/19 0701 - 07/08/19 0700 Shift 7049-1714 5721-7277 24 Hour Total 6588-4845 6179-6789 24 Hour Total INTAKE P.O. 100 1900 [...] extremities Skin: no rashes Sameera Jackson PA-C EDGER * Molly Vasquez RN - 07/06/2019 7:15 PM HAND EDGER Patient assessment completed and documented in the [...] continue to monitor patient throughout the shift. EDGER * Mary Petty, RT - 07/06/2019 5:18 PM HAND EDGER RT Adult Assessment Note NAME:Jeffry Dye :1955 [...] Sounds: Clear (implies normal) Respiratory Effort: Non-Labored EDGER * Miladys Roger RN - 06/24/2019 8:42 AM HAND EDGER Phone triage assessment not completed as PAC indicated and scheduled for 07-01-19 at 1300. She has history of IN resulting in stenting [address] Kwame Mathew in [place], [place]. Also current smoker,HTN,HLD and DM. GIUSEPPE sent. Un derstands instructions and arrival times. EDGER documented in this encounter H&P Notes * Rea Olivo MD - 07/06/2019 6:38 AM HAND EDGER [facility] Breast [facility] History and Physical Examination 07/06/2019 [...] findings was recommended. Pertinent PMH: Hx of IN in 2017 (stent placed), Hx of smoking 1 PPD x 43 years, hyperlipidemia, HTN, Type II DM. Rag Cutting Machine Feeder is Dr. Mathew in [place], [place] Family History: Sister with breast cancer [...] tums prn Heart disease HTN (hypertension) Hyperlipidemia IN (myocardial infarction) (HCC) 2017 stent placed Type [...] last 72 hours. Melissa Fuentes MD Pager: [phone] I reviewed the R/B/A for the operation with the patient, who signed consent and agrees to proceed. Rea Olivo MD EDGER documented in this encounter Miscellaneous Notes * Care Plan - Molly Vasquez RN - 07/06/2019 8:11 PM HAND EDGER Will continue to follow plan of care. EDGER * Care Plan - Mallorie Rodriguez RN - 07/06/2019 5:41 PM HAND EDGER Assessment is done, documented. care plan initiated. EDGER * Operative Report (Direct Entry) - Rea Olivo MD - 07/06/2019 12:30 PM HAND EDGER Operative Report Surgery Date: 07/06/2019 Incision/Procedure Start Time: 1:25pm Incision Close/Procedure End Time: 2:43 PM Procedure Performed: Left Simple Mastectomy Left breast injection of dye for lymphatic mapping Left sentinel lymph node Surgeon(s) and Fish Farm Laborer(s): Surgeon(s) and Role: * Rea Olivo MD [...] Stage IB (cT2, cN0, cM0, G2, ER+, AL+, HER2-) - Signed by Herbert Santa APRN [...] SHORT STITCH SUPERIOR LONG STITCH LATERAL Tissue [address],Left SURGICAL PATHOLOGY Rea Olivo MD 07/06/2019 1358 2 : LEFT AXILLARY SENTINEL LYMPH NODE #1 Tissue Axilla SURGICAL PATHOLOGY Rea Olivo MD 07/06/2019 1407 Drains: two left anterior chest wall Complications: none I personally performed the entire procedure with assistance. SIGNATURE: Rea Olivo MD PATIENT NAME: Jeffry Dye DATE: July 06, 2019 TIME: 2:43 PM EDGER documented in this encounter Plan of Treatment Order Schedule Name Type Priority Associated Diag noses ONE TIME for 1 Occurrences starting 03/2019 until 07/06/2019, 1 completed BREAST SPEC PATH ONLY/NO Imaging Routine RAD READ documented as of this encounter Procedures Comments Procedure Name Priority Date/Time Associated Diag nosis POC GLUCOSE 07/07/2019 7:36 AM HAND EDGER POC GLUCOSE 07/06/2019 10:09 PM HAND EDGER POC GLUCOSE 07/06/2019 5:49 PM HAND EDGER POC GLUCOSE 07/06/2019 3:32 PM HAND EDGER HC FROZEN SECTION #1 Routine 07/06/2019 Malignant neoplasm of 1:58 PM HAND EDGER upper-outer quadrant of left female breast, unspecified estrogen receptor status (HCC) BIOPSY/ EXCISION LYMPH 07/06/2019 Malignant neop lasm of NODE DEEP AXILLARY 1:05 PM HAND EDGER upper-outer quadra nt of left female breast, unspecified estrogen receptor status (HCC) INJECTION RADIOACTIVE 07/06/2019 Malignant neopl asm of TRACER FOR SENTINEL NODE 1:05 PM HAND EDGER upper-outer quadrant of IDENTIFICATION left female breast, unspecified estrogen receptor status (HCC) IDENTIFICATION SENTINEL 07/06/2019 Malignant juan carlos plasm of LYMPH NODE 1:05 PM HAND EDGER upper-outer quadran t of left female breast, unspecified estrogen receptor status (HCC) MASTECTOMY - COMPLETE - 07/06/2019 Malignant juan carlos plasm of SIMPLE 1:05 PM HAND EDGER upper-outer quadran t of left female breast, unspecified estrogen receptor status (HCC) BREAST SPEC PATH ONLY/NO Routine 07/06/2019 RAD READ 11:35 AM HAND EDGER POC GLUCOSE 07/06/2019 11:18 AM HAND EDGER TUMOR PROGNOSTIC MARKERS 07/06/2019 SCAN 12:00 AM HAND EDGER TELEMETRY STRIPS-SCAN 07/06/2019 12:00 AM HAND EDGER documented in this encounter Results * POC GLUCOSE (07/07/2019 7:36 AM HAND EDGER) Glucose, POC 143 (H) 70 - 100 MG/DL MAIN LAB Specimen Performing Organization Address [facility] Ph one Number MAIN LAB [address] [place] [address] * POC GLUCOSE (07/06/2019 10:09 PM HAND EDGER) Glucose, POC 170 (H) 70 - 100 MG/DL MAIN LAB Specimen Performing Organization Address [facility] Ph one Number MAIN LAB [address] [place] [address] * POC GLUCOSE (07/06/2019 5:49 PM HAND EDGER) Glucose, POC 196 (H) 70 - 100 MG/DL MAIN LAB Specimen Performing Organization Address [facility] Ph one Number MAIN LAB [address] [place] [address] * POC GLUCOSE (07/06/2019 3:32 PM HAND EDGER) Glucose, POC 144 (H) 70 - 100 MG/DL MAIN LAB Specimen Performing Organization Address City/State/Zipcode Ph one Number MAIN LAB [address] [place] [address] * SURGICAL PATHOLOGY (07/06/2019 1:58 PM HAND EDGER) PATHOLOGY [facility] [email or web address] Department of Pathology and Laboratory Medicine [address] [place] [address] Surgical Pathology Office: [phone] SURGICAL PATHOLOGY REPORT NAME: JEFFRY DYE SURG PATH #: [id number] MR #: [id number] SPECIMEN CLASS: SI BILLING #: [id number] ALT ID #: LOCATION: 3 DATE OF PROCEDURE: 07/06/2019 AGE: 64 SEX: [...] 95% Positive Stain Intensity: Strong Progesterone Receptor (AL): 91% Positive Stain Intensity: Strong Her2: 0 Negative Ki-67 10% Testing performed on block Number: A40 (10:00 Nodule) Estrogen Receptor (ER): 97% Positive Stain Intensity: Strong Progesterone Receptor (AL): <1% Negative Stain Intensity: Not Applicable Note: Internal control cells present and stain as expected. Her2: 0 Negative Ki-67 9% The original image analysis report is scanned in [employer] under Results Review. Disclaimer: The [facility] is certified under the Clinical Laboratory Improvement Amendments of 1988 (CLIA) to perform high complexity clinical laboratory testing. The Food and Drug Administration (FDA) cleared estrogen receptor/progesterone receptor (ER/AL) assays and the FDA approved Her2 assay are performed on formalin-fixed, paraffin-embedded tissue sections using the Thurmond Benchmark Ultraview [place] DAB detection kit with Thurmond Confirm ER antibody (clone [id number]), Thurmond Confirm AL antibody (clone [id number]), and Thurmond Pathway Her2/luis e antibody (clone [id number]). Ki-67 is performed using Dako Flex Ki-67 antibody (clone MIB-1) with Dako Flex Dab detection kit on autostainer Link 48. Interpretations of the ER/AL and Her2 results follow the most current [place] Society of Clinical Oncology/College of [place] Pathologists (ASCO/CAP) guidelines. Known positive and negative control tissues show appropriate staining. Cold ischemic time and formalin fixation time of the tissue meet the ASCO/CAP requirements unless noted in the original pathology report. This assay has not been validated on decalcified tissues. The image analysis is performed using [employer] Adull[employer] Projet Image Analysis system (v5.6.2). CLARISA ARIZMENDI MD [...] cm from the deep margin Histologic Grade ([place] Histologic Score) (all foci of invasive ductal carcinoma): II/III Tubule Formation: 3 Nuclear Grade: 2 Mitotic Count (40x objective): 1 Total Sebastien Score: 6/9 Histologic Grade ([place] Histologic Score) (all foci of invasive lobular carcinoma): II/III Tubule Formation: 3 Nuclear Grade: 2 Mitotic Count (40x objective): 1 Total [place] Score: 6/9 Ductal Carcinoma In-situ (DCIS): Present Extensive intraductal component (>25%): Present, approximately 5.0 cm in greatest dimension DCIS within and/or adjacent to invasive carcinoma: Yes DCIS separate from invasive carcinoma: Yes Lobular Carcinoma In-situ (LCIS): Present Lymph-Vascular Invasion: Present Nipple Involvement: DCIS involves nipple ducts Skin Involvement: Absent Skeletal Muscle: Not present Lymph Node Sampling: [place] lymph node(s) only Total number of lymph [...] material indicated in this report. +++ +++ bm/07/07/2019 ############################## ############################## ############ Material Received: A: left [...] Lesion location 3:00 Metallic clip identified: Yes, De Ruyter clip Uninvolved breast parenchyma: 90% lobular nagy-yellow with 10% fibrous [id number] breast parenchyma Tissue sent to the [facility] Core Facility: No The deep resection margin is inked black Axillary dissection attached: No Corporate Real Estate Manager sections of the specimen are submitted as follows: A1 Corporate Real Estate Manager sections of the upper outer quadrant. A2 Corporate Real Estate Manager sections of the lower outer quadrant. A3 Corporate Real Estate Manager sections of the lower inner quadrant. A4 Corporate Real Estate Manager sections of the upper inner quadrant. A5 Corporate Real Estate Manager section of skin closest to the lesion. [...] formalin until 0400 on July 07, 2019. ([facility]) B. Received fresh, labeled the patient's name and [...] blue, black). B2FS One possible lymph node. ([facility]) [facility]/07/06/2019 Intraoperative Consultation: [id number], lymph nodes (4), "left axillary sentinel lymph node #1", excision: Negative for malignancy. Frozen section performed at the [facility], [address], [place] [address]. MONROE FRYE MD If immunohistochemical stains and/or in situ hybridization are cited in this report, the performance characteristics were determined by the Department of Pathology and Laboratory Medicine of the [facility] ([employer]) in compliance with CLIA'88 regulations. [...] of Pathology and Laboratory Medicine of the [facility]. It has not been cleared or approved by the FDA. The FDA has determined that such clearance or approval is not necessary. Specimen Tissue - Breast,Left Tissue - Axilla Performing Organization Address [facility] Ph one Number [facility] [address] [place] [address] * BREAST SPEC PATH ONLY/NO RAD READ (07/06/2019 11:35 AM HAND EDGER) Specimen Narrative Performed At This order has been auto finalized and does not conta in a result. [facility] RAD MAMMO Performing Organization Address [facility] Ph one Number RAD MAMMO * POC GLUCOSE (07/06/2019 11:18 AM HAND EDGER) Glucose, POC 115 (H) 70 - 100 MG/DL MAIN LAB Specimen Performing Organization Address [facility] Ph one Number [facility] [address] [place] [address] * TELEMETRY STRIPS-SCAN (07/06/2019 12:00 AM HAND EDGER) Narrative Performed At This result has an attachment that is n ot available. Ordered by an unspecified provider. * TUMOR PROGNOSTIC MARKERS SCAN (07/06/2019 12:00 AM HAND EDGER) Narrative Performed At This result has an [...] Medication Order MAR Action 07/06/2019 8:56 PM HAND EDGER 20 mg atorvastatin (LIPITOR) tablet 20 mg Given 20 mg, Oral, AT BEDTIME DAILY, First dose on Sat07/06/19 at 2100, Until Discontinued 07/06/2019 4:19 PM HAND EDGER 50 mcg fentaNYL citrate PF (SUBLIMAZE) Given injection 50 mcg 50 mcg, Intravenous, EVERY 5 MIN PRN, Starting Sat07/06/19 at 1502, Until Sat07/06/19 at 1646, Pain Injectable, For Pain Score 4-6, Maximum total dose 200 mcg Hold if RR < 10, PACU (only) 50 mcg Given 07/06/2019 3:52 PM HAND EDGER 50 mcg Given 07/06/2019 3:46 PM HAND EDGER 07/07/2019 8:57 AM HAND EDGER 0.5 mL Deltoid, Right influenza (=>6 MO)(QUADrivalent) [...] - NOTE: If dose unavailable , send [employer] message to pharmacy, 07/06/2019 1:14 PM HAND EDGER 2.5 mL isosulfan blue (LYMPHAZURIN) injection Given INTRA-PROCEDURE MED, Starting Sat07/06/19 at 1314, Until Sat07/06/19 at 1521, Intra-op 07/06/2019 2:40 PM HAND EDGER lactated ringers infusion Given - New 1,000 mL, 1,000 mL, Intravenous, at 20 Bag mL/hr, CONTINUOUS, Starting Sat07/06/19 at 1030, Until Sat07/06/19 at 1653, Pre-Op 1,000 mL 20 mL/hr Given - New Bag 07/06/2019 10:50 AM HAND EDGER 07/07/2019 8:56 AM HAND EDGER 2.5 mg lisinopril (ZESTRIL) tablet 2.5 mg Given 2.5 mg, Oral, DAILY, First dose on Sat07/07/19 at 0900, Until Discontinued 07/06/2019 5:46 PM HAND EDGER 2 mg morphine injection 2-4 mg Given 2-4 mg, Intravenous, EVERY 2 HOURS PRN , Starting Sat07/06/19 at 1653, Until Sat07/07/19 at 1343, Pain Injectable 07/07/2019 4:13 AM HAND EDGER 5 mg oxyCODONE (ROXICODONE) tablet 5-10 mg Given 5-10 mg, Oral, EVERY 6 HOURS PRN, Starting Sat07/06/19 at 1653, Until Sat07/07/19 at 1343, Pain PO 07/07/2019 8:57 AM HAND EDGER 1 tablet senna/docusate (SENOKOT-S) tablet 1 Given tablet 1 tablet, Oral, TWICE DAILY, First dose on Sat07/06/19 at 2100, Until Discontinued, Hold for loose stools, 1 tablet Given 07/06/2019 8:56 PM HAND EDGER 07/06/2019 7:12 PM HAND EDGER 100 mL/hr sodium chloride 0.45 % with KCl 20 Dose/Rate mEq/L infusion Verify 1,000 mL, Intravenous, at 100 mL/hr, CONTINUOUS, Starting Sat07/06/19 at 1700, Until Sat07/07/19 at 1343, Lock IV fluids after patient tolerating oral intake., 100 mL/hr Given - New Bag 07/06/2019 5:23 PM HAND EDGER documented in this encounter
--- OUTSIDE RECORDS SUMMARY | 2019-10-19 08:29 | XMS REPORT | Encounter Summary ---
Author Author [facility] Organization [facility] Address Unknown Phone Unavailable Care Team Providers Care Or Scrub Tech Name Role Phone Sameera Smith MD PCP Reason for Visit * Reason Comments Follow Up Encounter Details Care Team Description [place] [address] [place] [address] [phone] Hannah Santa, ACCOUNTS RECEIVABLE SPECIALIST [address] [place] [address] [phone] 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, estrogen receptor positive (HCC) (Primary Dx) 07/16/2019 Office Visit The [address] [address] Social History Date Tobacco Use Types Packs/Day [...] Comments Vital Sign 109/67 07/16/2019 1:59 PM DIGITAL ARCHIVIST Blood Pressure 79 07/16/2019 1:59 PM DIGITAL ARCHIVIST Pulse 36.8 C (98.2 F) 07/16/2019 1:59 PM DIGITAL ARCHIVIST Temperature 14 07/16/2019 1:59 PM DIGITAL ARCHIVIST Respiratory Rate 98% 07/16/2019 1:59 PM DIGITAL ARCHIVIST Oxygen Saturation - - Inhaled Oxygen Concentration 86.2 kg (190 lb) 07/16/2019 1:59 PM DIGITAL ARCHIVIST Weight 175.3 cm (5' 9.02") 07/16/2019 1:59 PM DIGITAL ARCHIVIST Height 28.05 07/16/2019 1:59 PM DIGITAL ARCHIVIST Body Mass Index documented in this encounter [...] as of this encounter Progress Notes * Hannah Santa, ACCOUNTS RECEIVABLE SPECIALIST - 07/16/2019 2:00 PM DIGITAL ARCHIVIST HPI: Ms. William returns to the clinic today for her post-op visit. She is 10 d ays s/p left mastectomy/SLNB for multiple foci of grade 2, hormone +, Her2 negat shady, IDC. She states that her pain has been well-managed and she has no complain ts today. Her KALPANA drains are still putting out 40-50mLs per day. PHYSICAL EXAM: Breast: left Incision: Clean, dry, and intact Erythema: No Ecchymosis: No Seroma: No Axilla: Incision: No separate incision Erythema: No Ecchymosis: No Seroma: No Upper Extremity: ROM: [place] scapula: No Lymphedema: No PATHOLOGY: Final Diagnosis: A. Breast, "left simple mastectomy, [...] #1. This diagnosis is relayed to Dr. Morgan via email on July 10, 2019. INVASIVE [...] cm from the deep margin Histologic Grade ([place] Histologic Score) (all foci of invasive ductal carcinoma): II/III Tubule Formation: 3 Nuclear Grade: 2 Mitotic Count (40x objective): 1 Total [place] Score: 6/9 Histologic Grade ([place] Histologic Score) (all foci of invasive lobular carcinoma): II/III Tubule Formation: 3 Nuclear Grade: 2 Mitotic Count (40x objective): 1 Total [place] Score: 6/9 Ductal Carcinoma In-situ (DCIS): Present Extensive intraductal component (>25%): Present, approximately 5.0 cm in greatest dimension DCIS within and/or adjacent to invasive carcinoma: Yes DCIS separate from invasive carcinoma: Yes Lobular Carcinoma In-situ (LCIS): Present Lymph-Vascular Invasion: Present Nipple Involvement: DCIS involves nipple ducts Skin Involvement: Absent Skeletal Muscle: Not present Lymph Node Sampling: [place] lymph node(s) only Total number of lymph [...] lobular carcinoma) and A40 (invasive ductal carcoma) ASSESSMENT/PLAN: 64 yo female 10 days s/p left mastectomy/SLNB for multifocal IDC and DCIS Ms. William is healing well. Her surgical pathology was reviewed with her in i jose j today and she was provided with a copy for her records. We discussed that du e to the amount of invasive and noninvasive breast cancer on pathology, we would recommend a consult with a radiation oncologist to discuss if radiation therapy would be recommended. She declined this consult. She is scheduled for a follow- up with Dr. Prescott. We will plan to see her back in 4 months. We will continue t o monitor for lymphedema with BIS at the time of her returns visits. Ms. William was given ample time to have all of her questions answered. The patient was seen in conjunction with Dr. Rea Morgan today. PLAN: Continue follow-up with Dr. Prescott RTC in 4 months to see MARCELINO with CHERRY Santa APRN TAL ARCHIVIST documented in this encounter Plan of Treatment Not on filedocumented as of this encounter Visit Diagnoses Diagnosis Malignant neoplasm of upper-outer quadr ant of left breast in female, estrogen receptor positive (HCC) documented in this encounter
--- OUTSIDE RECORDS SUMMARY | 2019-10-19 08:30 | XMS REPORT | Encounter Summary ---
Author Author [facility] Organization [facility] Address Unknown Phone Unavailable Care Team Providers Care Yarn Twister Name Role Phone Sameera Smith MD PCP Reason for Referral * Consult, Test & Treat (Routine) Referred By Contact Referred To Contact Status Reason Specialty Diagnoses / [place] [address] [place] [address] Cc - Ww Cl Exm/Proc [address] No Auth Needed Specialty Services Oncology Diagnoses Required Malignant neoplasm of upper-outer quadrant of left breast in female, estrogen receptor positive (HCC) Scheduling Instructions Lymphedema Prevention Clinic Locations: [place] : [phone] [place] [address]: [phone] [facility] Exam [address] [place] [address] Reason for Visit * Reason Comments New Patient * Consult, Test & Treat (Routine) Referred By Contact Referred To Contact Status Reason Specialty Diagnoses / Procedures Unknown, Unknown, Cc - Ww Cl Exm/Proc [place] [id number] No Auth Needed Oncology Diagnoses DCIS Encounter Details Care Team Description [place] [address] [place] [address] [phone] 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, estrogen receptor positive (HCC) (Primary Dx) 05/28/2019 Office Visit [facility] [place] [address] Social History Date Tobacco Use Types Packs/Day Years Used Heavy Tobacco Smoker Cigarettes 1 43 Smokeless Tobacco: Never Used Drinks/Week oz/Week Comments Alcohol Use Not Currently Sex Assigned at Date Recorded Not on file Industry Job Start Date Occupation Not on file Not on file Not on file Travel End Travel History Travel Start No recent travel history available. documented as of this encounter Last Filed Vital Signs Reading Time Taken Comments Vital Sign 126/73 05/28/2019 10:27 AM CDT Blood Pressure 83 05/28/2019 10:27 AM CDT Pulse 36.9 C (98.5 F) 05/28/2019 10:27 AM CDT Temperature 15 05/28/2019 10:27 AM CDT Respiratory Rate 96% 05/28/2019 10:27 AM CDT Oxygen Saturation - - Inhaled Oxygen Concentration 87.5 kg (193 lb) 05/28/2019 10:27 AM CDT Weight 174.8 cm (5' 8.82") 05/28/2019 10:27 AM CDT Height 28.65 05/28/2019 10:27 AM CDT Body Mass Index documented in this encounter [...] as of this encounter Progress Notes * Rea Morgan MD - 05/28/2019 10:15 AM CDT Name: Ximena William : 1955 AGE: 64 y.o. DATE OF SERVICE: 05/28/2019 Subjective: Reason for Visit: Diagnosis: Left multifocal breast cancer, dx 04/2019 - Grade 2, DCIS with focal grade 2, IDC (ER90%, PR90%, Her2 0+, Ki-67 20%) at 12 :00 - Grade 2, DCIS with ILC (ER90%, PR80%, Her2 0+ Ki-67 14%) at 3:00 Ms. William is a new patient in the clinic today. She is here to discuss managem ent of her recently diagnosed left breast cancer. Cancer Staging Malignant neoplasm of upper-outer quadrant of left breast in female, estrogen re ceptor positive (HCC) Staging form: Breast, AJCC 8th Edition - Clinical: Stage IB (cT2, cN0, cM0, G2, ER+, UT+, HER2-) - Signed by Herbert Santa APRN on 05/28/2019 History of Present Illness History: Ms. William is a female who presented to the Breast Surgery Clinic o n 05/28/2019 at age 64 for evaluation of her left breast cancer. A left breast m as was felt by her provider on clinical exam in March 2019. Bilateral diagno stic mammograms showed an area of density in the palpable area of concern at 3:0 0, a mass in the subareolar area, and a small nodular density in the medial left breast. Left breast ultrasound showed a 1.3 cm circumscribed hypoechoic mass at 12:00, retroareolar area an ill-defined region of hypoechogenicity suggestive of a heterogeneous mass measuring 4 cm at 3:00 in the palpable area of concern. no concerning finding was seen in the medial left breast. Biopsy of the two masses was recommended. Left breast biopsies on 04/29/19 showed a grade 2, DCIS with f ocal, grade 2 invasive ductal carcinoma (1 mm) at 12:00 and grade 2, DCIS with i nvasive lobular carcinoma at 3:00. Breast Imaging: Mammogram: - Bilateral diagnostic mammograms [...] findings was recommended. Pertinent PMH: Hx of NH in 2017 (stent placed), Hx of smoking 1 PPD x 43 years, hyperlipidemia, HTN, Type II DM. 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 Referred by: Dr. Sameera Smith Review of Systems Constitutional: Negative for fever, chills, appetite change and fatigue. HENT: Negative for hearing loss, congestion, rhinorrhea. Tinnitus. Eyes: Negative for pain, discharge and itching. Respiratory: Negative for chest tightness and shortness of breath. Cough Cardiovascular: Negative for chest pain and palpitations. Gastrointestinal: Negative for abdominal distention, pain, nausea, vomiting, and diarrhea. Genitourinary: Negative for frequency, vaginal bleeding, difficulty urinating an d pelvic pain. Musculoskeletal: Negative for myalgias, back pain, joint swelling and arthralgia s. Skin: Negative for rash. Neurological: Negative for dizziness, weakness, light-headedness and headaches. Hematological: Does not bruise/bleed easily. Psychiatric/Behavioral: Negative for disturbed wake/sleep cycle. The patient is not nervous/anxious. Allergies Allergen Reactions Acetaminophen UNKNOWN Chest Pain The following medical/surgical/family/social history and the list of medications are current, as of 05/28/2019 Medical History: Diagnosis Date Breast cancer (HCC) 2019 Heart disease HTN (hypertension) Hyperlipidemia NH (myocardial infarction) ([facility]) 2017 Type II diabetes mellitus ([facility]) Surgical History: Procedure Laterality Date BREAST SURGERY Right CHOLECYSTECTOMY COLONOSCOPY Family History Problem Relation Age of Onset Diabetes Mother Heart Disease Mother Cancer-Prostate Father Cancer-Breast Sister 40's, genetic testing negative Cancer-Breast Other 40's Social History Socioeconomic History Marital status: Spouse name: Not on file Number of children: Not on file Years of education: Not on file Highest education level: Not on file Occupational History Not on file Tobacco Use Smoking status: Heavy Tobacco Smoker Packs/day: 1.00 Years: 43.00 Pack years: 43.00 Types: Cigarettes Smokeless tobacco: Never Used Substance and Sexual Activity Alcohol use: Not Currently Drug use: Never Sexual activity: Not on file Other Topics Concern Not on file Social History Narrative Not on file Objective: aspirin EC 81 mg tablet every 24 hours. atorvastatin (LIPITOR) 20 mg tablet Take 20 mg by mouth daily. clopiDOGrel (PLAVIX) 75 mg tablet every 24 hours. docosahexanoic acid/epa (FISH OIL PO) Take by mouth. lisinopril (ZESTRIL) 2.5 mg tablet Take 2.5 mg by mouth daily. mv,with Wt-fnly-XG-lut-179herb (WOMENS MULTIVITAMIN HI POTENCY) 13.5-200-250 mg-mcg-mcg tab Sitagliptin-Metformin (JANUMET) 50-500 mg tab every 12 hours. Vitals: 05/28/19 1027 BP: 126/73 Pulse: 83 Resp: 15 Temp: 36.9 C (98.5 F) TempSrc: Oral SpO2: 96% Weight: 87.5 kg (193 lb) Height: 174.8 cm (68.82") Body mass index is 28.65 kg/m. Pain Score: Zero Fatigue Scale: 0-None Pain Addressed: N/A Patient Evaluated for a Clinical Trial: No treatment clinical trial available fo r this patient. Eastern Cooperative Oncology Group performance status is 0, Fully active, able t o carry on all pre-disease performance without restriction.. Physical Exam Pulmonary/Chest: Vitals reviewed. RIGHT BREAST EXAM: Breast: No palpable masses Skin Erythema: No Attachment of Overlying Skin: No Peau d' orange: No Chest Wall Attachment: No Nipple Inversion: No Nipple Discharge: No LEFT BREAST EXAM: Breast: 1 cm mass at 12:00, SA and 3 x 4 cm mass at 2-3:00, centered 4 cm FTN; t he two masses abut each other Skin Erythema: No Attachment of Overlying Skin: No Peau d' orange: No Chest Wall Attachment: Yes Nipple Inversion: No Nipple Discharge: No RIGHT EMIGDIO BASIN EXAM: Axillary: negative Infraclavicular: negative Supraclavicular: negative LEFT EMIGDIO BASIN EXAM: Axillary: negative Infraclavicular: negative Supraclavicular: negative Constitutional: Well-developed and well-nourished. No acute distress. HEENT: Head: Normocephalic and atraumatic. Eyes: No discharge. No scleral icterus. Cardiovascular: Normal rate, regular rhythm and normal heart sounds. No murmur o r gallop. Pulmonary/Chest: Effort normal and breath sounds normal. No respiratory distress . No wheezes. No rales. Musculoskeletal: No edema. Neurological: Alert and oriented to person, place and time. No cranial nerve def icit. Skin: Warm and dry. No rash noted. No erythema. No pallor. Psychiatric: Normal mood and affect. Behavior is normal. Judgement and thought c ontent normal. Assessment and Plan: 64 yo female with left multifocal breast cancer, Stage IB (cT2, cN0, cM0) - Grade 2, DCIS with focal grade 2, IDC (ER90%, PR90%, Her2 0+, Ki-67 20%) at 12 :00 - Grade 2, DCIS with ILC (ER90%, PR80%, Her2 0+ Ki-67 14%) at 3:00 The diagnosis, including type of breast cancer, tumor markers, and stage were di scussed today. We discussed options of BCT versus mastectomy with or without rec onstruction, including a similar risk of local/regional recurrence with BCT and mastectomy, with no survival benefit for mastectomy. We discussed that due to th e size of the cancer, we would recommend a mastectomy; we also discussed that sh e is not a candidate for reconstruction due to her history of smoking. We discus sed a SLNB at the time of mastectomy to evaluate for emigdio metastasis and an ALN D may be required pending results of SLNBx pathology. We discussed the risk of l ymphedema with removal of any lymph nodes at the time of surgery. She will see t he Lymphedema Prevention nurse pre-operatively for baseline measurements and edu cation. We discussed the role for radiation including that breast conservation i s usually followed by radiation and the potential indications for post mastectom y radiation. We discussed the multidisciplinary treatment for breast cancer incl uding the role for medical oncology. Breast MRI was discussed. It was explained that the advantage of breast MRI is increased sensitivity over other breast imag ing and therefore, may find something that was not previously seen. The disadvan tage, is that due to the increased sensitivity there is a 20% rate of false posi tives, which may lead to additional biopsies that are negative. There is a 10-15 % risk of finding another breast cancer in the ipsilateral breast and a 3-4% shena nce in the contralateral breast. We explained that on clinical exam, the mass is feels like it may be attached to the chest wall and the breat MRI will help sandro luated if there is extension into the chest wall. If there i involvement of the chest wall, then we will discussed with medical oncology if neoadjuvant chemothe rapy is recommended. If the chest wall is not involved, then we will proceed to surgery. Ms. William was agreeable with the breast MRI and he was also agreed wi th a left total mastectomy/SLNB/possible ALND. She was given ample time to ask questions, all of which were answered to her sat isfaction. Additional imaging ordered today: MRI of breast Medical oncology: Referral in system, scheduled to consult with Dr. Prescott today Radiation oncology:N/A Genetic referral: N/A, will defer Genetic testing to Dr. Prescott Plastic surgery referral: N/A Fertility referral: N/A Lymphedema evaluation: Scheduled for BIS today; will schedule education visit Tumor board presentation: No Preoperative clearance required: Cardiology Operative plan: Left total mastectomy/LNB/possible ALND; timing of surgery aaliyah chang breast MRI results Hannah Santa APRN ATTESTATION I personally reviewed images, performed the breast exam and history, discussion, assessment, and treatment plan. The case was discussed with Hannah AQUINO and I have altered the documentation as needed to reflect my assessment and pl an. HPI: 64 y/o woman presenting with new diagnosis of LEFT breast cancer. She prese nted for mammograms 04/15/19 at OSH where multiple new areas of abnormality on th e left were noted -- 12:00 retroareolar, 1.3cm with biopsy showing IDC ER+ UT+ H ER2-; 3:00 lateral side 4cm with biopsy showing ILC ER+ UT+ HER2-; and left inne r breast asymmetry with negative ultrasound without further work-up recommended. She has no prior breast atypia or high risk findings, but did have a prior linnette gn right breast lump removed in . 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; DM2 with A1c 6s FH: sister with BC in 40s; MNiece (not daughter of formerly mentioned sister) wi th BC in 40s; dad with prostate CA SH: current daily smoker On examination: BP 126/73 (BP Source: Arm, Left Upper, Patient Position: Sitting) | Pulse 83 | Temp 36.9 C (98.5 F) (Oral) | Resp 15 | Ht 174.8 cm (68.82") | Wt 87.5 kg (193 lb) | SpO2 96% | BMI 28.65 kg/m Gen: alert, interactive, NAD Psych: focused, appropriate questions, appropriately anxious Pulm: Breathing comfortably on RA, no respiratory distress, no use of accessory muscles Skin: warm, dry, no visible rashes Breasts: bilateral symmetric size with asymmetric shape due to mass on the left. Bilateral nipples everted, no nipple discharge, no skin erythema or edema. Right breast without dominant mass. Left breast with 4cm mass at 3:00 closely approx imated to 1cm mass retroareolar area with overlying skin tethering and thickenin g of the NAC as well as over the 3:00 mass, questionability mobility versus ches t wall, no additional dominant mass Lymphadenopathy: no C/S/A lymphadenopathy Extremities: ROM intact, no edema My assessment/impression: cT2N0 left breast cancer Comorbidities prior NH with stent (managed by used car renovator), DM2 managed by PCP, smoker declining intervention Plan: I discussed with the patient, her son, and her DIL the diagnosis, role of medical and radiation oncology and role of surgery including options for surgery . MRI today. Dr. Prescott consultation today to help determine order of treatment. Anticipate D kathleen Prescott will also address genetic testing as well as question of lung cancer s creening. I would not plan for genetic testing to change her surgical plan as th ere is no data to suggest oncologic advantage for ppx mastectomy in patients in her age group and given competing co-morbitidies. If we proceeded with lumpectomy, this would be a large central lumpectomy with l ateral extension. It would require removal of the NAC and I would expect also a change in the size of this breast such that it would not be symmetric in size to the contralateral side. With lumpectomy we reviewed risk of positive margin (5%) which would require additional surgery and need for radiation as part of breast conservation. If we proceed with mastectomy, she is a candidate for TM versus SSM pending luis nstruction goals. She is not interested in reconstruction and declined referral. She would prefer to proceed with mastectomy, which is certainly appropriate giv en the size and extent of tumor on exam. MRI is still helpful to surgical planni ng in terms of axillary LN evaluation as well as extent of disease and concern f or chest wall approximation given questionability mobility versus chest wall on exam and [facility] diagnosis. We discussed smoking cessation, the importance of this, and the increased risk o f postoperative complications when someone is a smoker. In addition, she underst ands there is an added risk of complications with reconstruction and smoking, so she may not be candidate for reconstruction or all types of reconstruction if s he continues to smoke. She is not a candidate for CPM due to current daily smoke r. Resources for smoking cessation were offered. We reviewed by smoking cessatio n, what is required is nicotine cessation including gum/patches. We discussed SLN and indications for ALND, including procedures and risk of LE. BIS and LERN referral. We will touch base after visit with Dr. Prescott to confirm order of treatment and if surgery first then will set date pending patient's schedule. Cardiology zaid grigsby preoperatively. Rea Morgan MD 05/28/2019 1:06 PM documented in this encounter Miscellaneous Notes * Addendum Note - Katy Frank RN - 05/28/2019 10:15 AM CDT Addended by: KATY FRANK on: 05/28/2019 01:24 PM Modules accepted: Orders documented in this encounter Plan of Treatment Order Schedule Name Type Priority Associated Diag noses Ordered: 05/28/2019 AMB REFERRAL TO Outpatient Routine Malignant neop lasm of LYMPHEDEMA PREVENTION Referral upper-outer quad rant of CLINIC left breast in female, estrogen receptor positive (HCC) documented as of this encounter Results * COMPREHENSIVE METABOLIC PANEL (05/28/2019 1:33 PM CDT) Sodium 136 (L) 137 - 147 MMOL/L [facility] Potassium 4.3 3.5 - 5.1 MMOL/L [facility] Chloride 103 98 - 110 MMOL/L [facility] Glucose 116 (H) 70 - 100 MG/DL [facility] Blood Urea 19 7 - 25 MG/DL [facility] Nitrogen Creatinine 1.24 (H) 0.4 - 1.00 MG/DL [facility] Calcium 10.3 8.5 - 10.6 MG/DL [facility] Total Protein 7.3 6.0 - 8.0 G/DL [facility] Total Bilirubin 0.3 0.3 - 1.2 MG/DL [facility] Albumin 4.5 3.5 - 5.0 G/DL [facility] Alk Phosphatase 130 (H) 25 - 110 U/L [facility] AST (SGOT) 22 7 - 40 U/L [facility] CO2 26 21 - 30 MMOL/L [facility] ALT (SGPT) 31 7 - 56 U/L [facility] Anion Gap 7 3 - 12 [facility] eGFR Non 44 (L) >60 mL/min [facility] Comment: [place] The eGFR is not validated f or use in drug dosing adjustments. Continue to use estimated creatinine clearance per dosing reference text. Please contact the Clinical Pharmacist for questions. eGFR 53 (L) >60 mL/min [facility] [place] Comment: The eGFR is not validated for use in drug dosing adjustments. Continue to use estimated creatinine clearance per dosing reference text. Please contact the Clinical Pharmacist for questions. Specimen Blood Performing Organization Address [facility] Ph one Number [facility] [address] [place] [address] * CBC AND DIFF (05/28/2019 1:33 PM CDT) White Blood 8.1 4.5 - 11.0 K/UL [facility] Cells RBC 4.47 4.0 - 5.0 M/UL [facility] Hemoglobin 13.8 12.0 - 15.0 GM/DL [facility] Hematocrit 41.1 36 - 45 % [facility] MCV 92.0 80 - 100 FL [facility] MCH 30.8 26 - 34 PG [facility] MCHC 33.5 32.0 - 36.0 G/DL [facility] RDW 14.3 11 - 15 % [facility] Platelet Count 178 150 - 400 K/UL [facility] MPV 9.1 7 - 11 FL [facility] Neutrophils 64 41 - 77 % [facility] Lymphocytes 28 24 - 44 % [facility] Monocytes 5 4 - 12 % [facility] Eosinophils 2 0 - 5 % [facility] Basophils 1 0 - 2 % [facility] Absolute 5.30 1.8 - 7.0 K/UL [facility] Neutrophil Count Absolute Lymph 2.30 1.0 - 4.8 K/UL [facility] Count Absolute 0.40 0 - 0.80 K/UL [facility] Monocyte Count Absolute 0.10 0 - 0.45 K/UL [facility] Eosinophil Count Absolute 0.10 0 - 0.20 K/UL [facility] Basophil Count Specimen Blood Performing Organization Address [facility] one Number [facility] [address] [place] [address] documented in this encounter Visit Diagnoses Diagnosis Malignant neoplasm of upper-outer quadr ant of left breast in female, estrogen receptor positive (HCC) documented in this encounter
--- OUTSIDE RECORDS SUMMARY | 2019-10-19 08:30 | XMS REPORT | Encounter Summary ---
Author Author [facility] Organization [facility] Address Unknown Phone Unavailable Care Team Providers Care Blue Split Trimmer Name Role Phone Sameera mSith MD PCP Reason for Referral * Radiology Services (Routine) Referred By Contact Referred To Contact Status Reason Specialty Diagnoses / Procedures Ella Millan APRN-NP [address] [place] [address] [facility] [address] [place] [phone] No Auth Needed Radiology Diagnoses At risk for osteopenia P rocedures BONE DENSITY SPINE/HIP Reason for Visit * Radiology Services (Routine) Referred By Contact Referred To Contact Status Reason Specialty Diagnoses / Procedures Ella Millan APRN-NP [address] [place] [address] [facility] [address] [place] [phone] No Auth Needed Radiology Diagnoses At risk for osteopenia P rocedures BONE DENSITY SPINE/HIP Encounter Details Care Team Description Date Type Department Ella Millan APRN-NP [address] [place] [address] [phone] 06/29/2019 [facility] [address] [place] [phone] Social History Date Tobacco Use Types Packs/Day [...] 0 mg tablet mouth at bedtime daily. 10/04/2016 clopiDOGrel (PLAVIX) 75 Take 75 mg by 0 mg tabletIndications: mouth daily. RESUME 72 HOURS (3 DAYS) AFTER SURGERY. lisinopril (ZESTRIL) 2.5 Take 2.5 mg 0 [...] tab by mouth twice daily with meals. 05/28/2019 07/01/2019 diazePAM (VALIUM) 5 mg Take one tab 2 tablet 0 tablet after signing MRI consent form, repeat once if needed 07/01/2019 docosahexanoic acid/epa Take by 0 (FISH OIL PO) mouth. 07/01/2019 mv,with 0 Wp-ahgg-RS-lut-179herb (WOMENS MULTIVITAMIN HI POTENCY) 13.5-200-250 mg-mcg-mcg tab documented as of this encounter Plan of Treatment Not on filedocumented as of this encounter Procedures Comments Procedure Name Priority Date/Time Associated Diag nosis BONE DENSITY SPINE/HIP Routine 06/29/2019 At risk for osteopenia 8:[address] WORKER documented in this encounter Results * BONE DENSITY SPINE/HIP (06/29/2019 8:[address] WORKER) Specimen Impressions Performed At Normal bone mineral density analysis. [facility] General comments regarding interpretati on of bone mineral density measurements: a) Consider FDA-approved medical therap ies in the setting of 1) Hip or vertebral fracture, 2) Osteoporosis, and 3) low b one mass, referred to as osteopenia, with FRAX score of greater than or equal to 3% for hip fracture or greater than or equal to 20% for major osteoporotic fra cture. Treatment may also be indicated based on clinical judgement and/or serjio ent preference. b) Interval between BMD testing should be determined according to each patient's clinical status: typically one year aft er initiation or change of therapy is appropriate, with longer intervals once therapeutic effect is established. In conditions with rapid bone loss, such a s glucocorticoid therapy, testing more frequently is appropriate. By my electronic signature, I attest th at I have personally reviewed the images for this examination and formulated the interpretations and opinions expressed in this report Finalized by John Cesar M.D. on 2018 8:38 AM. Dictated by Edenilson Veliz M.D. on 06/29/2019 8:00 AM. Narrative Performed At BONE DENSITOMETRY [facility] CLINICAL INDICATION: 64 year old fema le, breast cancer, bone health, at risk for osteopenia COMPARISON: None FINDINGS: DEXA scan of the lumbar spine and bilateral hips were performed with SquaredOut. Lumbar spine and hip with lowest T-score reported below. FRAX score was calculated from p atient reported risk factors and femoral neck bone density. LUMBAR SPINE, L1-L3. L4 was excluded se condary to degree of statistical variation 1.412 g/cm2, T-score of 1.9 LEFT FEMORAL NECK 1.108 g/cm2, T-score of 0.5 LEFT TOTAL HIP 1.233 g/cm2, T-score of 1.8 RIGHT FEMORAL NECK 1.067 g/cm2, T-score of 0.2 RIGHT TOTAL HIP 1.188 g/cm2, T-score of 1.4 FRAX SCORE Calculation of fracture risk using the FRAX model is not appropriate in certain settings. It was not performed in thi s patient because the patient met one or more of the following conditions: pre -menopausal status, men < age 50, normal bone density, use of hormonal therapy w ithin 1 year, use of anti-resorptive therapy within 2 years, or bilateral hi p replacements. WHO Criteria for Diagnosis of Osteoporo sis (T-score)* Normal (-1.0 and above) Low bone mass, referred to as osteopeni a (Between -1.0 and -2.5) Osteoporosis (-2.5 and below) *Based on region with lowest bone insurance examiner al density. Procedure Note Interface, Radiant Results - 06/29/2019 8:[address] WORKER BONE DENSITOMETRY CLINICAL INDICATION: 64 year old female, breast cancer, bone health, at risk for osteopenia COMPARISON: None FINDINGS: DEXA scan of the lumbar spine and bilateral hips were performed with SquaredOut. Lumbar spine and hip with lowest T-score reported below. FRAX score was calculated from patient reported risk factors and femoral neck bone density. LUMBAR SPINE, L1-L3. L4 was excluded secondary to degree of statistical variation 1.412 g/cm2, T-score of 1.9 LEFT FEMORAL NECK 1.108 g/cm2, T-score of 0.5 LEFT TOTAL HIP 1.233 g/cm2, T-score of 1.8 RIGHT FEMORAL NECK 1.067 g/cm2, T-score of 0.2 RIGHT TOTAL HIP 1.188 g/cm2, T-score of 1.4 FRAX SCORE Calculation of fracture risk using the FRAX model is not appropriate in certain settings. It was not performed in this patient because the patient met one or more of the following conditions: pre-menopausal status, men < age 50, normal bone density, use of hormonal therapy within 1 year, use of anti-resorptive therapy within 2 years, or bilateral hip replacements. WHO Criteria for Diagnosis of Osteoporosis (T-score)* Normal (-1.0 and above) Low bone mass, referred to as osteopenia (Between -1.0 and -2.5) Osteoporosis (-2.5 and below) *Based on region with lowest bone mineral density. IMPRESSION Normal bone mineral density analysis. General comments regarding interpretation of bone mineral density measurements: a) Consider FDA-approved medical therapies in the setting of 1) Hip or vertebral fracture, 2) Osteoporosis, and 3) low bone mass, referred to as osteopenia, with FRAX score of greater than or equal to 3% for hip fracture or greater than or equal to 20% for major osteoporotic fracture. Treatment may also be indicated based on clinical judgement and/or patient preference. b) Interval between BMD testing should be determined according to each patient's clinical status: typically one year after initiation or change of therapy is appropriate, with longer intervals once therapeutic effect is established. In conditions with rapid bone loss, such as glucocorticoid therapy, testing more frequently is appropriate. By my electronic signature, I attest that I have personally reviewed the images for this examination and formulated the interpretations and opinions expressed in this report Finalized by John Cesar M.D. on 06/29/2019 8:38 AM. Dictated by Edenilson Veliz M.D. on 06/29/2019 8:00 AM. Performing Organization Address City/State/Zipcode Ph one Number [facility] documented in this encounter Visit Diagnoses Diagnosis At risk for osteopenia Other specified conditions influencing health status documented in this encounter
--- OUTSIDE RECORDS SUMMARY | 2019-10-19 08:30 | XMS REPORT | Encounter Summary ---
Author Author [facility] Organization [facility] Address Unknown Phone Unavailable Care Team Providers Care Tissue Coordinator Name Role Phone Sameera Smith MD PCP Reason for Visit * Reason Comments Cancer * Consult, Test & Treat (Routine) Referred By Contact Referred To Contact Status Reason Specialty Diagnoses / [place] [address] [place] [address] Cc - Ww Cl Exm/Proc [address] No Auth Needed Specialty Services Oncology Diagnoses Required Malignant neoplasm of upper-outer quadrant of left breast in female, estrogen receptor positive (HCC) Encounter Details Care Team Description [place] [address] [place] [address] [phone] At risk for lymphedema (Primary Dx) 05/28/2019 Nurse Only The [address] [phone] Social History Date Tobacco Use Types Packs/Day [...] as of this encounter Progress Notes * Jacqueline Jacques RN - 05/28/2019 11:45 AM CDT BIS obtained for baseline measurements prior to surgery. Baseline BIS = 4.8 No notification indicated documented in this encounter Plan of Treatment Order Schedule Name Type Priority Associated Diag noses Ordered: 05/28/2019 PERFORM L-DEX Procedures Routine At risk for lym phedema documented as of this encounter Visit Diagnoses Diagnosis At risk for lymphedema Other specified conditions influencing health status documented in this encounter
--- OUTSIDE RECORDS SUMMARY | 2019-10-19 08:30 | XMS REPORT | Encounter Summary ---
Author Author [facility] Organization [facility] Address Unknown Phone Unavailable Care Team Providers Care Drying Can Worker Name Role Phone Sameera Smith MD PCP Reason for Visit * Reason Comments Results MRI Encounter Details Care Team Description [place] [address] [place] [address] Results (MRI) 06/01/2019 Telephone [facility] [address] [place] [address] Social History Date Tobacco Use Types Packs/Day [...] Telephone Encounter - Katy Frank RN - 06/01/2019 11:18 AM OUTDOOR FITNESS TRAINER Called patient with results of breast MRI as listed below and reviewed by Dr. Roberto Morgan. Informed pt, no addl breast imaging or bx needed at this time. LEFT TM, SLNB pALND plan confirmed. Informed pt that BONE SCAN is next step and we w ill chose surgery date based on this. Bone scan currently in process of getting scheduled with ONC team. Pt verbalized understanding, agrees to plan, and denie s further questions/ needs at this time. Pt has contact information. Study Result Breast cancer [id number] MRI BREAST BILAT W/O W CONTRAST: MAY 28, 2019 - Technologists: Alicja Modi, hotel services sales representative; Xuan Wagner Prior study comparison: April 29, 2019, left breast mammogram. April 15, 2019, bilateral mammogram. April 15, 2019, left breast ultrasound. 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 Prior benign excisional biopsy of the right breast. Menstrual status: Postmenopausal Technique: Patient was unable to complete several sequences following contrast administration. Bilateral breast MRI was performed with dedicated breast coil, with and without contrast MultiHance in the axial plane using fat saturation, 3D, and with additional T1 axial images obtained. Images were interpreted with the aid of CAD, including 3D generation of MIP images, subtractions, and pharmacokinetic analysis. 0.2 ml/kg of Multihance (gadolinium) was injected in bolus fashion. Findings- Background enhancement: Mild Tissue density- scattered fibroglandular density Right Breast: There is no evidence of abnormal enhancement, mass, or axillary/internal mammary adenopathy. Left Breast: The biopsy-proven malignancy labeled at the 12:00 position appears to be at the 1:00 position and measures 1.6 cm AP x 1.1 cm transverse x 1.3 cm craniocaudal. The biopsy clip marker is noted along the caudal aspect of this mass. There is nonmass enhancement extending from this mass to the left nipple. Additional larger mass biopsied as ILC located at the 3:00 position measures 5.0 cm AP x 1.7 cm transverse x 2.1 cm craniocaudal. In its entirety, both masses and adjacent nonmass enhancement span measurement of 8.0 cm AP x 2.4 cm transverse x 2.6 cm cranial caudal. There is a left level 1 axillary lymph node with possible cortical thickening measuring up to 1.0 cm. No left internal mammary lymphadenopathy is identified. Ancillary findings: None Impression: 1. Left breast masses at the 1:00 and 3:00 positions compatible with biopsy-proven malignancies. Extensive nonmass enhancement extends from the left nipple and spans a length of up to 8.0 cm in AP dimension. 2.Prominent left level 1 axillary lymph node with possible cortical thickening. Ultrasound could be obtained for further evaluation if this would change clinical management. Approved by Mary Mckenna M.D. on 05/28/2019 4:21 PM By my electronic signature, I attest that I have personally reviewed the images for this examination and formulated the interpretations and opinions expressed in this report Finalized by Seng Zambrano M.D. on 05/28/2019 4:32 PM. Dictated by Mary Mckenna M.D. on 05/28/2019 2:26 PM. Electronically signed and approved by: Seng Zambrano M.D. [id number] IMPRESSION ACR BI-RADS Assessments: BIRAD 6-Known biopsy proven malignancy RECOMMENDATION: Follow-up with your physician of the left breast. [employer]OR FITNESS TRAINER documented in this encounter Plan of Treatment Not on filedocumented as of this encounter Visit Diagnoses Not on filedocumented in this encounter
--- OUTSIDE RECORDS SUMMARY | 2019-10-19 08:30 | XMS REPORT | Encounter Summary ---
Author Author [facility] Organization [facility] Address Unknown Phone Unavailable Care Team Providers Care Oil Well Cable Tool Driller Name Role Phone Sameera Smith MD PCP Reason for Referral * Radiology Services (Routine) Referred By Contact Referred To Contact Status Reason Specialty Diagnoses / [place] [address] [place] [address] [address] [place] [address] Closed Radiology Diagnoses Invasive ductal carcinoma of left breast (HCC) Invasive lobular carcinoma of left breast in female (HCC) P rocedures MRI BREAST BILAT WO/W CONTRAST CHG MRI BREAST WITHOUT&WITH CONTRAST W/CAD BILATERAL Reason for Visit * Radiology Services (Routine) Referred By Contact Referred To Contact Status Reason Specialty Diagnoses / [place] [address] [place] [address] [address] [address] Closed Radiology Diagnoses Invasive ductal carcinoma of left breast (HCC) Invasive lobular carcinoma of left breast in female (HCC) P rocedures MRI BREAST BILAT WO/W CONTRAST CHG MRI BREAST WITHOUT&WITH CONTRAST W/CAD BILATERAL Encounter Details Care Team Description Date [place] [address] [place] [address] [phone] 05/28/[address] [place] [address] [address] [facility] [address] [place] [address] Social History Date Tobacco Use Types Packs/Day [...] mg 0 mg tablet by mouth daily. 04/09/2018 Sitagliptin-Metformin Take 1 tablet 0 (JANUMET) 50-500 mg tab by mouth twice daily with meals. 05/28/2019 07/01/2019 diazePAM (VALIUM) 5 mg Take one tab 2 tablet 0 tablet after signing MRI consent form, repeat once if needed 07/01/2019 docosahexanoic acid/epa Take by 0 (FISH OIL PO) mouth. 07/01/2019 mv,with 0 Jq-mxnl-RX-lut-179herb (WOMENS MULTIVITAMIN HI POTENCY) 13.5-200-250 mg-mcg-mcg tab documented as of this encounter Plan of Treatment Not on filedocumented as of this encounter Procedures Comments Procedure Name Priority Date/Time Associated Diag nosis MRI BREAST BILAT WO/W Routine 05/28/2019 Invasive ductal carcinoma CONTRAST 1:41 PM CDT of left breast (HCC ) Invasive lobular carcinoma of left breast in female (HCC) HC CBC W/ AUTOMATED DIFF Routine 05/28/2019 Malig nant neoplasm of 1:33 PM CDT upper-outer quadrant of left breast in female, estrogen receptor positive (HCC) HC COMPREHENSIVE Routine 05/28/2019 Malignant juan carlos plasm of METABOLIC PANEL 1:33 PM CDT upper-outer quadran t of left breast in female, estrogen receptor positive (HCC) documented in this encounter Results * MRI BREAST BILAT WO/W CONTRAST (05/28/2019 1:41 PM CDT) Specimen Impressions Performed At [facility] BI-RADS Assessments: BIRAD 6-Known biopsy prove n malignancy [facility] RECOMMENDATION: Follow-up with your physician of the le ft breast. Narrative Performed At Breast cancer [facility] [id number] MRI BREAST BILAT W/O W CONTRAST: MAY 28, 2019 - Technologists: Alicja Modi, MRI Techno logisang; Xuan Wagner Prior study comparison: April 29, 2019 , left breast mammogram. April 15, 2019, bilateral mammogram . April 15, 2019, left breast ultrasound. History: 64-year-old female with left I DC of DCIS at 12:00 and biopsy of DCIS at 3:00. Prior benign ex cisional biopsy of the right breast. Menstrual status: [...] and pharmacokinetic analysis. 0.2 ml/kg of Multihance (gado linium) was injected in bolus fashion. Findings- Background enhancement: Mild Tissue density- scattered fibroglandula r density Right Breast: There is no evidence of a bnormal enhancement, mass, or axillary/internal mammary adenopathy . Left Breast: The biopsy-proven malignan cy labeled at the 12:00 position appears to be at the 1:00 posi tion and measures 1.6 cm AP x 1.1 cm transverse x 1.3 cm cranioc audal. The biopsy clip marker is noted along the caudal aspect of this mass. There is nonmass enhancement extending from this mass to the left nipple. Additional larger mass biopsied as ILC located at the 3:00 position measures 5.0 cm AP x 1.7 cm tr ansverse x 2.1 cm craniocaudal. In its entirety, both masses and adjace nt nonmass enhancement span measurement of 8.0 cm AP x 2.4 cm transverse x 2.6 cm cranial caudal. There is a left level 1 axillary lymph node with possible cortical thickening measuring up to 1.0 cm. No left internal mammary lymphadenopathy is identified. Ancillary findings: None Impression: 1. Left breast masses at the 1:00 and 3 :00 positions compatible with biopsy-proven malignancies. Extens shady nonmass enhancement extends from the left nipple and spans a length of up to 8.0 cm in AP dimension. 2.Prominent left level 1 axillary lymph node with possible cortical thickening. Ultrasound could b e obtained for further evaluation if this would change clinica l management. Approved by Mary Mckenna M.D. o n 05/28/2019 4:21 PM By my electronic signature, I attest th at I have personally reviewed the images for this examinatio n and formulated the interpretations and opinions expressed in this report Finalized by Seng Zambrano M.D. on 4:32 PM. Dictated by Mary Mckenna M.D. on 019 2:26 PM. Electronically signed and approved by: Seng Zambrano M.D. [id number] Procedure Note Interface, Radiant Results - 05/28/2019 4:34 PM CDT Breast cancer [id number] MRI BREAST BILAT W/O W CONTRAST: MAY 28, 2019 - Technologists: Alicja Modi, cardiovascular surgical tech; Xuan Wagner Prior study comparison: April 29, [...] Left breast masses at the 1:00 and 3: 00 positions compatible with biopsy-proven malignancies. Extensive nonmass [...] signed and approved by: Seng Zambrano M.D. [id number] IMPRESSION ACR BI-RADS Assessments: BIRAD 6-Known biopsy proven malignancy RECOMMENDATION: Follow-up with your physician of the left breast. Performing Organization Address [facility] one Number [facility] * CBC AND DIFF (05/28/2019 1:33 PM [...] Basophil Count Specimen Blood Performing Organization Address [facility] one Number [facility] [address] [place] [address] * COMPREHENSIVE METABOLIC PANEL (05/28/2019 1:33 PM [...] 44 (L) >60 mL/min [facility] Comment: [place] The eGFR is not validated f or use in drug dosing adjustments. Continue to use estimated creatinine clearance per dosing reference text. Please contact the Clinical Pharmacist for questions. eGFR 53 (L) >60 mL/min [facility] [place] Comment: The eGFR is not validated for use in drug dosing adjustments. Continue to use estimated creatinine clearance per dosing reference text. Please contact the Clinical Pharmacist for questions. Specimen Blood Performing Organization Address City/State/Zipcode Ph one Number [facility] [address] [place] [address] documented in this encounter Visit Diagnoses Diagnosis Invasive ductal carcinoma of left breas t (HCC) Invasive lobular carcinoma of left stephen st in female (HCC) Malignant neoplasm of upper-outer quadr ant of left breast in female, estrogen receptor positive (HCC) documented in this encounter Administered Medications Action Date Dose Rate Site Medication Order MAR Action 05/28/2019 1:51 PM CDT 18 mL gadobenate dimeglumine (MULTIHANCE) Given injection 18 mL 18 mL, Intravenous, ONCE, 1 dose, Cyndee 05/28/19 at 1330, NOTE: This is a HIGH ALERT Medication., 05/28/2019 1:52 PM CDT 50 mL sodium chloride PF 0.9% injection 50 mL Given 50 mL, Intravenous, ONCE, 1 dose, Cyndee 05/28/19 at 1330, DO NOT SEND this medication unless it is requested. This med is usually available in floor stock., documented in this encounter
--- OUTSIDE RECORDS SUMMARY | 2019-10-19 08:30 | XMS REPORT | Encounter Summary ---
Author Author [facility] Organization [facility] Address Unknown Phone Unavailable Care Team Providers Care Hosiery Knitter Name Role Phone Sameera Smith MD PCP Reason for Visit * Radiology Services (Routine) Referred By Contact Referred To Contact Status Reason Specialty Diagnoses / Procedures Ella Millan APRN-NP [address] [place] [address] Nuclear Med [address] [place] [address] No Auth Needed Radiology Diagnoses Infiltrating ductal carcinoma of left breast (HCC) Elevated alkaline phosphatase level P rocedures NM BONE SCAN WHOLEBODY Encounter Details Care Team Description Date Type Department Ella Millan APRN-NP [address] [place], [place] [id number] 06/29/2019 [facility] [address] [id number] Social History Date Tobacco Use Types Packs/Day [...] (FISH OIL PO) mouth. 07/01/2019 mv,with 0 Pb-lyav-[id number]-lut-179herb (WOMENS MULTIVITAMIN HI POTENCY) 13.5-200-250 mg-mcg-mcg tab documented as of this encounter Plan of Treatment Not on filedocumented as of this encounter Procedures Comments Procedure Name Priority Date/Time Associated Diag nosis NM BONE SCAN WHOLEBODY Routine 06/29/2019 Infiltr ating ductal 11:39 AM PIECE DYER carcinoma of left breast (HCC) Elevated alkaline phosphatase level documented in this encounter Results * NM BONE SCAN WHOLEBODY (06/29/2019 11:39 AM PIECE DYER) Specimen Impressions Performed At 1. No scintigraphic evidence of osseous metastatic disease. [facility] Approved by Edenilson Veliz M.D. on 2:49 PM By my electronic signature, I attest th at I have personally reviewed the images for this examination and formulated the interpretations and opinions expressed in this report Finalized by John Cesar M.D. on 2018 5:31 PM. Dictated by Edenilson Veliz M.D. on 06/29/2019 11:46 AM. Narrative Performed At BONE SCINTIGRAPHY (WHOLE-BODY) [facility] Radiopharmaceutical: 26.7 mCi IV Tc-99m MDP Clinical indication: breast cancer, johan vated Alk phos Technique: Delayed whole-body scintigra ms were obtained. Comparison: None. FINDINGS: Physiologic uptake is seen within the k idneys and bladder. Degenerative uptake is seen at the thoracolumbar spine, fuentes ateral shoulders, elbows, wrists, sternoclavicular joints, knees, and rig ht ankle. No suspicious focus of abnormal radiotracer uptake. Procedure Note Interface, Radiant Results - 06/29/2019 5:34 PM PIECE DYER BONE SCINTIGRAPHY (WHOLE-BODY) Radiopharmaceutical: 26.7 mCi IV Tc-99m MDP Clinical indication: breast cancer, elevated Alk phos Technique: Delayed whole-body scintigrams were obtained. Comparison: None. FINDINGS: Physiologic uptake is seen within the kidneys and bladder. Degenerative uptake is seen at the thoracolumbar spine, bilateral shoulders, elbows, wrists, sternoclavicular joints, knees, and right ankle. No suspicious focus of abnormal radiotracer uptake. IMPRESSION 1. No scintigraphic evidence of osseous metastatic disease. Approved by Edenilson Veliz M.D. on 06/29/2019 2:49 PM By my electronic signature, I attest that I have personally reviewed the images for this examination and formulated the interpretations and opinions expressed in this report Finalized by John Cesar M.D. on 06/29/2019 5:31 PM. Dictated by Edenilson Veliz M.D. on 06/29/2019 11:46 AM. Performing Organization Address City/State/Zipcode Ph one Number [facility] documented in this encounter Visit Diagnoses Not on filedocumented in this encounter
--- OUTSIDE RECORDS SUMMARY | 2019-10-19 08:30 | XMS REPORT | Encounter Summary ---
Author Author [facility] Organization [facility] Address Unknown Phone Unavailable Care Team Providers Care Honing Job Setter Name Role Phone Sameera Smith MD PCP Reason for Referral * Radiology Services (Routine) Referred By Contact Referred To Contact Status Reason Specialty Diagnoses / Procedures Ella Millan APRN-REAL ESTATE APPRAISER SUPERVISOR [address] [place] [address] Gen Radiology [address] [place] [address] [address] [place] [address] No Auth Needed Radiology Diagnoses At risk for osteopenia P rocedures BONE DENSITY SPINE/HIP * Radiology Services (Routine) Referred By Contact Referred To Contact Status Reason Specialty Diagnoses / Procedures Ella Millan APRN-NP [address] [place] [address] Nuclear Med [address] [place] [address] No Auth Needed Radiology Diagnoses Infiltrating ductal carcinoma of left breast (HCC) Elevated alkaline phosphatase level P rocedures NM BONE SCAN WHOLEBODY Reason for Visit * Reason Comments Cancer * Consult, Test & Treat (Routine) Referred By Contact Referred To Contact Status Reason Specialty Diagnoses / Procedures Sameera Smith MD [address] [place] [address] Flavia Prescott MD [address] [place] [address] No Auth Needed Medical Oncology Diagnoses / Oncology Left breast IDC, DCIS and ILC, [employer] Medicaid, Referred by Dr. Sameera Smith, JOSÉ MIGUEL:TRINITY/MARCUS ramsay NEW PATIENT Encounter Details Care Team Description Date Type Department Flavia Prescott MD [address] [place], [place] [id number] Infiltrating ductal carcinoma of left br east (HCC) (Primary Dx); Elevated alkaline phosphatase level; At risk for osteopenia; Malignant neoplasm of upper-outer quadrant of left breast in female, estrogen receptor positive (HCC) 05/28/2019 Office Visit [facility] [address] [address] Social History Date Tobacco Use Types Packs/Day [...] Time Taken Comments Vital Sign 126/73 05/28/2019 2:45 PM CDT Blood Pressure 83 05/28/2019 2:45 PM CDT Pulse 36.9 C (98.5 F) 05/28/2019 2:45 PM CDT Temperature - - Respiratory Rate 96% 05/28/2019 2:45 PM CDT Oxygen Saturation - - Inhaled Oxygen Concentration 88.5 kg (195 lb 3.2 oz) 05/28/2019 2:45 PM CDT Weight 174.8 cm (5' 8.82") 05/28/2019 2:45 PM CDT Height 28.98 05/28/2019 2:45 PM CDT Body Mass Index documented in this [...] as of this encounter Patient Instructions * Patient Instructions* Laura Frias RN - 05/28/2019 3:30 PM CDT Team Members: MD Ella Gallo APRN Lisa Her, RN Julie French, RN Contact information: Office phone: [phone] Office fax: [phone] After hours phone: [phone] Address: [address] [place] [address], [address] [place] [address] documented in this encounter Progress Notes * Flavia Prescott MD - 05/28/2019 3:30 PM CDT Name: Ximena William : 1955 AGE: 64 y.o. DATE OF SERVICE: 05/28/2019 Subjective: Reason for Visit: Cancer DIAGNOSIS: Left, grade II IDC at 12:00 (ER 90%, KS 90%, Her2 0+, Ki-67: 20%) and left, grade II ILC at 3:00 (ER 90%, KS 80%, Her2 0+, Ki-67: 14%) 04/29/19 STAGE: [id number] History of Present Illness Ximena William is a 64 y.o. female diagnosed with left breast cancer. Pat ient reports palpating a left breast mass "years ago" that was not bothersome. Over the last few months she has developed spontaneous nipple discharge. She valverde d a bilateral diagnostic mammogram 04/15/19 ([place], [place]) which an asymmetric d ensity in the upper and outer left breast as well as a lobulated mass in the ret roareolar and lateral aspect of the left breast. Same day US revealed a 1.0x1.0 x1.3cm mass in the left breast at 12:00 position. At the 3:00 position is a 1.0 x1.5x1.7cm mass. No abnormal axillary lymph nodes were visualized. Both areas of concern were biopsied 04/29/19 ([facility] Pathology a t 12:00 grade II invasive ductal carcinoma (ER 90%, KS 90%, Her2 0+, Ki-67: 20%) with DCIS. The 3:00 biopsy revealed grade II invasive lobular carcinoma (ER 90 %, KS 80%, Her2 0+, Ki-67: 14%). She was scheduled for MRI breast today, : 1. Left breast masses at the 1:00 and 3:00 positions compatible with biopsy-proven malignancies. Extensive nonmass enhancement extends from the left nipple and spans a length of up to 8.0 cm in AP dimension. 2.Prominent left level 1 axillary lymph node with possible cortical thickening. Ultrasound could be obtained for further evaluation if this would change clinical management. Review of Systems Constitutional: Negative for fatigue and fever. HENT: Negative. Eyes: Negative for visual disturbance. Respiratory: Positive for cough (chronic). Negative for shortness of breath. Cardiovascular: Negative for chest pain. Gastrointestinal: Negative for abdominal pain, constipation, diarrhea and nausea . Genitourinary: Negative for difficulty urinating. Musculoskeletal: Positive for arthralgias (shoulders). Negative for back pain. Skin: Negative for rash. Neurological: Negative for dizziness, weakness, numbness and headaches. Hematological: Negative for adenopathy. Psychiatric/Behavioral: The patient is not nervous/anxious. PMH: Hx of NV in 2017 (stent placed), , hyperlipidemia, HTN, Type II DM. Cardiol ogallyson is Dr. Mathew in [place], [place] FAMILY HX: Sister with breast cancer in her 40's (genetic testing negative), ni sandee with breast cancer in her 40's (brother's daughter), and father had prostate cancer . No history of ovarian cancer SOCIAL HX: current everyday smoker 1 PPD x 43 years. 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 Menopause age 47, no HRT. Objective: aspirin EC 81 mg tablet every 24 hours. atorvastatin (LIPITOR) 20 mg tablet Take 20 mg by mouth daily. clopiDOGrel (PLAVIX) 75 mg tablet every 24 hours. diazePAM (VALIUM) 5 mg tablet Take one tab after signing MRI consent form, r epeat once if needed docosahexanoic acid/epa (FISH OIL PO) Take by mouth. lisinopril (ZESTRIL) 2.5 mg tablet Take 2.5 mg by mouth daily. mv,with Vf-fypk-QN-lut-179herb (WOMENS MULTIVITAMIN HI POTENCY) 13.5-200-250 mg-mcg-mcg tab Sitagliptin-Metformin (JANUMET) 50-500 mg tab every 12 hours. Vitals: 05/28/19 1445 BP: 126/73 Pulse: 83 Temp: 36.9 C (98.5 F) TempSrc: Oral SpO2: 96% Weight: 88.5 kg (195 lb 3.2 oz) Height: 174.8 cm (68.82") Body mass index is 28.98 kg/m. Pain Score: Zero Fatigue Scale: 0-None Pain Addressed: N/A Patient Evaluated for a Clinical Trial: No treatment clinical trial available fo r this patient. Eastern Cooperative Oncology Group performance status is 1, Restricted in physic ally strenuous activity but ambulatory and able to carry out work of a light or sedentary nature, e.g., light house work, office work. Physical Exam Constitutional: She appears well-nourished. No distress. HENT: Head: Normocephalic. Mouth/Throat: No oropharyngeal exudate. Eyes: Pupils are equal, round, and reactive to light. No scleral icterus. Neck: Normal range of motion. Cardiovascular: Normal rate, regular rhythm and normal heart sounds. No murmur heard. Pulmonary/Chest: Effort normal and breath sounds normal. No respiratory distress . She has no rales. Abdominal: She exhibits no distension. There is no tenderness. Musculoskeletal: She exhibits no edema. Lymphadenopathy: She has no cervical adenopathy. She has no axillary adenopathy. Right: No supraclavicular adenopathy present. Left: No supraclavicular adenopathy present. Neurological: She is alert. No cranial nerve deficit. Coordination normal. Skin: Skin is warm. No rash noted. No erythema. Psychiatric: She has a normal mood and affect. Her behavior is normal. Thought c ontent normal. Vitals reviewed. CBC w diff Lab Results Component Value Date/Time WBC 8.1 05/28/2019 01:33 PM RBC 4.47 05/28/2019 01:33 PM HGB 13.8 05/28/2019 01:33 PM HCT 41.1 05/28/2019 01:33 PM MCV 92.0 05/28/2019 01:33 PM MCH 30.8 05/28/2019 01:33 PM MCHC 33.5 05/28/2019 01:33 PM RDW 14.3 05/28/2019 01:33 PM PLTCT 178 05/28/2019 01:33 PM MPV 9.1 05/28/2019 01:33 PM Lab Results Component Value Date/Time NEUT 64 05/28/2019 01:33 PM ANC 5.30 05/28/2019 01:33 PM LYMA 28 05/28/2019 01:33 PM ALC 2.30 05/28/2019 01:33 PM RENEA 5 05/28/2019 01:33 PM AMC 0.40 05/28/2019 01:33 PM EOSA 2 05/28/2019 01:33 PM AEC 0.10 05/28/2019 01:33 PM BASA 1 05/28/2019 01:33 PM ABC 0.10 05/28/2019 01:33 PM Comprehensive Metabolic Profile Lab Results Component Value Date/Time NA 136 (L) 05/28/2019 01:33 PM K 4.3 05/28/2019 01:33 PM CL 103 05/28/2019 01:33 PM CO2 26 05/28/2019 01:33 PM GAP 7 05/28/2019 01:33 PM BUN 19 05/28/2019 01:33 PM CR 1.24 (H) 05/28/2019 01:33 PM GLU 116 (H) 05/28/2019 01:33 PM Lab Results Component Value Date/Time CA 10.3 05/28/2019 01:33 PM ALBUMIN 4.5 05/28/2019 01:33 PM TOTPROT 7.3 05/28/2019 01:33 PM ALKPHOS 130 (H) 05/28/2019 01:33 PM AST 22 05/28/2019 01:33 PM ALT 31 05/28/2019 01:33 PM TOTBILI 0.3 05/28/2019 01:33 PM GFR 44 (L) 05/28/2019 01:33 PM GFRAA 53 (L) 05/28/2019 01:33 PM Assessment and Plan: 1. 64 y.o. post menopausal female with Left, grade II IDC at 12:00 (ER 90%, KS 90%, Her2 0+, Ki-67: 20%) and left, grade II ILC at 3:00 (ER 90%, KS 80%, Her2 0 +, Ki-67: 14%). CT3N0. Prognosis and treatment options were discussed with the p ariana and her family. Breast cancer specific prognostic markers (ER, KS, HER-2/ luis e) were also discussed with them. At this time we recommend proceeding to surgery. Adjuvant therapy decisions will be made based on surgical pathology. Adjuvant endocrine therapy will be recomme nded. Will discuss need for adjuvant chemotherapy and utilization of oncotype Dx based on final surgical pathology 2. remote computer terminal operator plan will include at least 5 years of endocrine therapy. Will get baseline BMD now. 3. Patient reports this breast mass has been present for quite some time. Give n the elevation of Alk phos will get bone scan now. 4. Based on current NCCN guidelines, patient meets criteria for genetic testin g. At present,BRCA1/2 testing can be done as part of a Panel. [facility] includes BRCA1/2 and an additional 25 other cancer related genes (BRCA1, BRC A2, MLH1, MSH2, MSH6, PMS2, EPCAM, APC, MUTYH, CDKN2A, PALB2, STK11, PTEN, TP53, DCH1, BMPR1A, SMAD4, JOHANN, BARD1, BRIP1, CDK4, CHEK2, NBN, RAD51C, and RAD51D). This comprehensive [employer] panel provides information on clinically actionable a nd clinically inactionable gene mutations. At present, it is likely that 20-30% of test run will identify variants of uncertain significance, which will require management decisions to be based off of the personal and family history of can cer. Will draw genetic testing at time of bone scan. 5. Mildly elevated Alk Phos : bone scan now 6. Multiple co morbidities including NV, chronic smoker, diabetes, HLD, HTN. 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 If bone scan is negative, RTC 2 weeks post op with BMD Ella Millan APRN I personally interviewed and examined the patient. I have reviewed the history, physical, impression and plan outlined by the nurse practitioner. The patient presents with Stage 2 breast cancer. On examination there is: This is a 64 y.o. female in no acute distress, well developed. HEENT: No icterus, PERRL. Neck: No JVD, supple. Adenopathy: None. Chest: CTA bilaterally. CV: RRR without murmur. Breasts: As above. Abdomen: Soft, non-distended, non-tender, no organomegaly. Skin: No rash. Back: No tenderness with palpation or percussion over the spine. Extremities: No clubbing, cyanosis or edema. Neuro: A&O x3 My impression is: T3 HR positive breast cancer (multicentric) My plan is: Proceed to surgery Bone scan RTC with BMD Adjuvant therapy discussion based on surgical pathology and other co-morbidities . Flavia Prescott MD CAL RECORD CONSULTANT documented in this encounter Plan of Treatment Not on filedocumented as of this encounter Results * NM BONE SCAN WHOLEBODY (06/29/2019 11:39 AM MEDICAL RECORD CONSULTANT) Specimen Impressions Performed At 1. No scintigraphic [...] Interface, Radiant Results - 06/29/2019 5:34 PM MEDICAL RECORD CONSULTANT BONE SCINTIGRAPHY (WHOLE-BODY) Radiopharmaceutical: 26.7 mCi IV [...] City/State/Zipcode Ph one Number [facility] * BONE DENSITY SPINE/HIP (06/29/2019 8:05 AM MEDICAL RECORD CONSULTANT) Specimen Impressions Performed At Normal bone mineral [...] spine and bilateral hips were performed with [employer]. Lumbar spine and hip with lowest T-score [...] below) *Based on region with lowest bone tax examiner al density. Procedure Note Interface, Radiant Results - 06/29/2019 8:41 AM MEDICAL RECORD CONSULTANT BONE DENSITOMETRY CLINICAL INDICATION: 64 year old female, breast cancer, bone health, at risk for osteopenia COMPARISON: None FINDINGS: DEXA scan of the lumbar spine and bilateral hips were performed with [employer]. Lumbar spine and hip with lowest T-score [...] documented in this encounter Visit Diagnoses Diagnosis Infiltrating ductal carcinoma of left b reast (HCC) Elevated alkaline phosphatase level Other nonspecific abnormal serum enzyme levels At risk for osteopenia Other specified conditions influencing health status Malignant neoplasm of upper-outer quadr ant of left breast in female, estrogen receptor positive (HCC) documented in this encounter
--- OUTSIDE RECORDS SUMMARY | 2019-10-19 08:30 | XMS REPORT | Encounter Summary ---
Author Author [facility] Organization [facility] Address Unknown Phone Unavailable Care Team Providers Care Cell Cleaner Name Role Phone Sameera Smith MD PCP Encounter Details Care Team Description [place] [address] [place] [address] Malignant neoplasm of upper-outer quadra nt of left female breast, unspecified estrogen receptor status (HCC) (Primary Dx) 06/23/2019 Prep for Case XDD [facility] SURGERY Social History Date Tobacco Use Types Packs/Day [...] impairment: No documented as of this encounter Plan of Treatment Not on filedocumented as of this encounter Visit Diagnoses Diagnosis Malignant neoplasm of upper-outer quadr ant of left female breast, unspecified estrogen receptor status (HCC) documented in this encounter
--- OUTSIDE RECORDS SUMMARY | 2019-10-19 08:30 | XMS REPORT | Encounter Summary ---
Author Author [facility] Organization [facility] Address Unknown Phone Unavailable Care Team Providers Care Director Hris Name Role Phone Sameera Smith MD PCP Reason for Visit * Reason Comments Surgery confirmation Encounter Details Care Team Description Date [place] [address] [place] [address] [phone] Surgery (confirmation) 06/09/2019 Telephone [facility] [address] [address] Social History Date Tobacco Use Types Packs/Day [...] Telephone Encounter - Katy Frank RN - 06/09/2019 1:07 PM HOSPITALITY INTERNSHIP Called to to state that we noticed she rescheduled her bone scan for a later jabier e. Reviewed to pt that bone scan results must be reviewed prior to surgery- enco uraged pt to secure surgery date of 07/06/19 since dates for surgery are filling up with the eoy coming, pt agrees. Pt verbalized understanding, agrees to plan, and denies further questions/ needs at this time. Pt has contact information. Spoke with Ms. William regarding LEFT TM, SLNB pALND and the confirmed surgery d ate of 07/06. The patient was informed that she would receive a call from the [facility] department the day prior to surgery to confirm time of arrival. The patie nt was given detailed instructions about where and when to check in the day of [facility]. A pre op packet describing the surgical procedure and pre and post operative ins tructions has been given to the patient and reviewed in detail. Informed pt that we will see her 1-2 weeks post op to review final pathology report in detail and assess surgical recovery. The patient has been informed of the medications that need to be stopped 7-10 da ys prior to surgery and the NPO requirements starting at midnight the night befo re surgery. Also informed that a independent driver will need to accompany pt due to the inf luence of anesthesia including narcotics post procedure. Informed pt that the PA T department will call to discuss lab work, medication review, health history, a nesthesia/ surgical history, and any other additional recommended testing for cl earance for surgery. The patient verbalized understanding of the information given. The patient was encouraged to call with any questions or concerns. [employer] documented in this encounter Plan of Treatment Not on filedocumented as of this encounter Visit Diagnoses Not on filedocumented in this encounter
--- OUTSIDE RECORDS SUMMARY | 2019-10-19 08:30 | XMS REPORT | Encounter Summary ---
Author Author [facility] Organization [facility] Address Unknown Phone Unavailable Care Team Providers Care Mold Presser Name Role Phone PCP Unavailable Reason for Referral * Radiology Services (Routine) Referred By Contact Referred To Contact Status Reason Specialty Diagnoses / [place] [address] [place] [address] [facility] [address] [place] [address] Closed Radiology Diagnoses Invasive ductal carcinoma of left breast (HCC) Invasive lobular carcinoma of left breast in female (HCC) P rocedures MRI BREAST BILAT WO/W CONTRAST CHG MRI BREAST WITHOUT&WITH CONTRAST W/CAD BILATERAL Encounter Details Care Team Description Date [place] [address] [place] [address] [phone] Invasive ductal carcinoma of left breast (HCC) (Primary Dx); Invasive lobular carcinoma of left breast in female (HCC) 05/20/2019 Orders Only [facility] [address] [place] [address] Social History Date Tobacco Use Types Packs/Day Years Used Never Assessed Sex Assigned at Date Recorded Not on file Industry Job Start Date Occupation Not on file Not on file Not on file Travel End Travel History Travel Start No recent travel history available. documented as of this encounter Plan of Treatment Not on filedocumented as of this encounter Results * MRI BREAST BILAT WO/W CONTRAST (05/28/2019 1:41 PM CDT) Specimen Impressions Performed At [facility] BI-RADS Assessments: BIRAD 6-Known biopsy prove n malignancy [facility] RECOMMENDATION: Follow-up with your physician of the le ft breast. Narrative Performed At Breast cancer [facility] [id number] MRI BREAST BILAT W/O W CONTRAST: MAY 28, 2019 - Technologists: Alicja Modi, MRI Techno mark; Xuan Wagner Prior study comparison: April 29, [...] signed and approved by: Seng Zambrano M.D. [id number] Procedure Note Interface, Radiant Results - 05/28/2019 4:34 PM CDT Breast cancer [id number] MRI BREAST BILAT W/O W CONTRAST: MAY 28, 2019 - Technologists: Alicja Modi, php mysql web developer; Xuan Wagner Prior study comparison: April 29, [...] 2:26 PM. Electronically signed and approved by: Sneg Zambrano M.D. [id number] IMPRESSION ACR BI-RADS Assessments: BIRAD 6-Known biopsy proven malignancy RECOMMENDATION: Follow-up with your physician of the left breast. Performing Organization Address City/State/Zipcode Ph one Number [facility] RES[facility] documented in this encounter Visit Diagnoses Diagnosis Invasive ductal carcinoma of left breas t (HCC) Invasive lobular carcinoma of left stephen st in female (HCC) documented in this encounter
--- OUTSIDE RECORDS SUMMARY | 2019-10-19 08:30 | XMS REPORT | Encounter Summary ---
Author Author [facility] Organization [facility] Address Unknown Phone Unavailable Care Team Providers Care Seed Laboratory Assistant Name Role Phone Sameera Smith MD PCP Reason for Referral * Radiology Services (Routine) Referred By Contact Referred To Contact Status Reason Specialty Diagnoses / Procedures Ella Millan APRN-NP [address] [place] [address] Nuclear Med [address] [place] [address] No Auth Needed Radiology Diagnoses Infiltrating ductal carcinoma of left breast (HCC) Elevated alkaline phosphatase level P rocedures NM BONE SCAN WHOLEBODY Reason for Visit * Radiology Services (Routine) Referred By Contact Referred To Contact Status Reason Specialty Diagnoses / Procedures Ella Millan APRN-NP [address] [place] [address] Nuclear Med [address] [place] [address] No Auth Needed Radiology Diagnoses Infiltrating ductal carcinoma of left breast (HCC) Elevated alkaline phosphatase level P rocedures NM BONE SCAN WHOLEBODY Encounter Details Care Team Description Date Type Department Ella Millan APRN-NP [address] [place] [address] [phone] 06/29/2019 [facility] [address] [place] [address] [facility] [address] [place] [address] Social History Date Tobacco Use Types Packs/Day [...] (FISH OIL PO) mouth. 07/01/2019 mv,with 0 Zh-rhdw-PV-lut-179herb (WOMENS MULTIVITAMIN HI POTENCY) 13.5-200-250 mg-mcg-mcg tab documented as of this encounter Plan of Treatment Not on filedocumented as of this encounter Procedures Comments Procedure Name Priority Date/Time Associated Diag nosis NM BONE SCAN WHOLEBODY Routine 06/29/2019 Infiltr ating ductal 11:39 AM TEACHING FELLOW carcinoma of left breast (HCC) Elevated alkaline phosphatase level documented in this encounter Results * NM BONE SCAN WHOLEBODY (06/29/2019 11:39 AM TEACHING FELLOW) Specimen Impressions Performed At 1. No scintigraphic [...] Interface, Radiant Results - 06/29/2019 5:34 PM TEACHING FELLOW BONE SCINTIGRAPHY (WHOLE-BODY) Radiopharmaceutical: 26.7 mCi IV [...] level Other nonspecific abnormal serum enzyme levels documented in this encounter Administered Medications Action Date Dose Rate Site Medication Order MAR Action 06/29/2019 7:51 AM TEACHING FELLOW 26.7 millicuries RP DX Tc-99m medronate (MDP) injection Given 25 millicurie 25 millicurie, Intravenous, ONCE, 1 dose, 06/29/19 at 0845 documented in this encounter
--- OUTSIDE RECORDS SUMMARY | 2019-10-19 08:30 | XMS REPORT | Encounter Summary ---
Author Author [facility] Organization [facility] Address Unknown Phone Unavailable Care Team Providers Care Tool Designer Apprentice Name Role Phone Sameera Smith MD PCP Reason for Visit * Reason Comments Navigation Assessment Encounter Details Care Team Description [place] [address] [place] [address] [phone] Navigation Assessment 05/20/2019 Telephone [facility] [address] [phone] Social History Date Tobacco Use Types Packs/Day Years Used Never Assessed Sex Assigned at Date Recorded Not on file Industry Job Start Date Occupation Not on file Not on file Not on file Travel End Travel History Travel Start No recent travel history available. documented as of this encounter Miscellaneous Notes * Telephone Encounter - Aysha Garsia RN - 05/20/2019 4:16 PM CDT Navigation Intake Assessment Patient Name: Ximena William : 1955 Insurance: [employer] Medicaid Direct Referral: None Appointment Info: Future Appointments Date Time Provider Department Center 05/28/2019 10:15 AM Rea Morgan MD [facility] Exam 05/28/2019 2:00 PM MRI - [facility] (1.5T) [facility] Radiology 05/28/2019 3:30 PM Flavia Prescott MD [facility] Exam Diagnosis & Reason for Visit: Left breast invasive ductal carcinoma, 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 Referring Physician: Sameera Smith MD Contact Name & Number: Surgeon: N/A Medical Oncologist: N/A Radiation Oncologist: N/A PCP: Sameera Smith MD Location of Films: PACS Location of Pathology: Pathology slides, accession # [id number], were reques krupa on 05/25/19 from [facility] for collection and review, MAIL ED/GLOBAL ACCOUNT MANAGER and Patient notified outside pathology slides will be obtained for re view by pathologist and a facility and professional fee will be billed to the insurance. History of Present Illness: Patient reports she palpated a left breast mass "ye ars ago" that never "bothered" her. Patient reports she has been having spontane ous bloody left nipple discharge in the past few months. Patient reports left br east pain that has been occurring for the past few weeks. Left breast biopsy on 04/29/19 revealed ductal carcinoma in situ, invasive ductal carcinoma and invasi ve lobular carcinoma. Patient was referred to Breast Clinic for further evalu ation and treatment. Patient denies any other current breast concerns. Patient r eports she had a right breast excisional biopsy in the that was benign at [facility]. Patient denies any other history of breast issues, surgeries or biopsies. TIMELINE: 04/15/19 Bilateral Diagnostic Mammogram Left Breast Ultrasound [facility] 04/29/19 Left Breast Ultrasound-Guided Biopsy [facility] A. 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 -Fibrocystic change with ductal epithelial hyperplasia with mild atypia. -Fibroadenoma. ER 90%, ME 90%, Ki-67: 20%, HER2/luis e: 0+ B. Breast, left at 3:00, needle biopsy: -Ductal carcinoma in situ. -Invasive lobular carcinoma. ER 90%, ME 80%, Ki-67: 14%, HER2/luis e: 0+ Family History of Breast Cancer: Sister-Breast cancer diagnosed in her 40's Niece-Breast cancer Father-Prostate cancer Personal History of Other Cancers: None NEEDS Assessment: Genetic Counseling: Genetic Assessment: Reports a family member diagnosed with cancer under 50 years of age;Reports two or more family members diagnosed with the same cancer Genetic Intervention: Provided information about available services Nutrition: Recent Weight Loss Without Trying?: No Eating Poorly Due to Decreased Appetite?: No Score: Malnutrition Screening Tool (MST): 0 Additional Nutrition Assessment: No concerns identified Nutrition Intervention: Provided information about available services Social & Financial: Social and Financial Assessment: Reports adequate support system;No needs identi fied Tobacco assessment last 30 days: Patient has used tobacco products within the la st 30 days Social and Financial Intervention: Provided information about available services Spiritual & Emotional: Spiritual and Emotional Assessment: Reports adequate support system;No needs lenin ntified Spiritual and Emotional Intervention: Provided information about available servi lior Physical: Fall Risk: None identified Communication: Communication Barrier: No Onc Fertility: Onc Fertility Assessment: Not applicable documented in this encounter Plan of Treatment Not on filedocumented as of this encounter Visit Diagnoses Not on filedocumented in this encounter
--- OUTSIDE RECORDS SUMMARY | 2019-10-19 08:30 | XMS REPORT | Encounter Summary ---
Author Author [facility] Organization [facility] Address Unknown Phone Unavailable Care Team Providers Care Sock Drier Name Role Phone Sameera Smith MD PCP Reason for Referral * Radiology Services (Routine) Referred By Contact Referred To Contact Status Reason Specialty Diagnoses / [place] [address] [place] [address] Ic[facility] Nuclear Med [id number] [place] [address] No Auth Needed Radiology Diagnoses Malignant neoplasm of upper-outer quadrant of left breast in female, estrogen receptor positive (HCC) P rocedures MAMMO LYMPH NODE INJ RADIOTRACER LT (OR) Encounter Details Care Team Description [place] [address] [place] [address] [phone] 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, estrogen receptor positive (HCC) (Primary Dx) 06/23/2019 Orders Only [facility] [address] [phone] Social History Date Tobacco Use Types Packs/Day [...] filedocumented as of this encounter Results * MAMMO LYMPH NODE INJ RADIOTRACER LT (OR) (07/06/2019 7:10 AM BASE MANAGER) Specimen Narrative Performed At This order has been auto finalized and does not conta in a result. [facility] Performing Organization Address City/State/Zipcode Ph one Number [facility] documented in this encounter Visit Diagnoses Diagnosis Malignant neoplasm of upper-outer quadr ant of left breast in female, estrogen receptor positive (HCC) documented in this encounter
--- OUTSIDE RECORDS SUMMARY | 2019-10-19 08:30 | XMS REPORT | Encounter Summary ---
Author Author [facility] Organization [facility] Address Unknown Phone Unavailable Care Team Providers Care Mastic Man Name Role Phone Sameera Smith MD PCP Encounter Details Care Team Description [place] [address] [place] [address] Malignant neoplasm of unspecified site o f left female breast (HCC) 06/04/2019 [facility] [address] [address] Social History Date Tobacco Use Types Packs/Day [...] (FISH OIL PO) mouth. 07/01/2019 mv,with 0 Ni-ziid-YG-lut-179herb (WOMENS MULTIVITAMIN HI POTENCY) 13.5-200-250 mg-mcg-mcg tab documented as of this encounter Plan of Treatment Not on filedocumented as of this encounter Procedures Comments Procedure Name Priority Date/Time Associated Diag nosis HC IMMUNOPEROX PER SPEC 06/04/2019 1ST STAIN 10:[address] INTERPRETER PATHOLOGY REPORTS FROM 06/04/2019 OUTSIDE SCAN 12:[address] INTERPRETER documented in this encounter Results * OUTSIDE PATHOLOGY CONSULT (06/04/2019 10:[address] INTERPRETER) PATHOLOGY [facility] [email or web address] Department of Pathology and Laboratory Medicine [address] [place] [address] Surgical Pathology Office: [phone] PATHOLOGY CONSULTATION NAME: XIMENA DYE SURG PATH #: [id number] MR #: [id number] ALT ID #: LOCATION: [facility] DATE OF PROCEDURE: 06/04/2019 AGE: 64 SEX: F DATE RECEIVED: 06/04/2019 : 1955 TIME RECEIVED: 10:30 PHYSICIAN: CAIT MORGAN MD DATE OF REPORT: 06/12/2019 COPY TO: DATE OF PRINTIN06/12/2019 OUTSIDE INSTITUTION: [facility] Laboratory, [address] [place] [address] ############################## ############################## ############ Final Diagnosis: A. Outside case "[id number]" (Date collected: 04/29/19): 1. Breast, "left at 12:00", needle core biopsy: Invasive ductal carcinoma, histologic grade 2. Fibroadenomatoid change. 2. Breast, "left at 3:00", needle core biopsy: Invasive lobular carcinoma, histologic grade 1. Ductal carcinoma in situ, intermediate to focal high grade, solid and cribriform types. Comment: Specimen 1: Left breast at 12:00 Invasive Carcinoma of the Breast: Biopsy CAP Version: Biopsy 1.0.0.1 Procedure: Needle core biopsy Laterality: Left Tumor Site: 12:00 Histologic Type: Invasive ductal carcinoma, NOS Size: The entire tumor size is not known. The single greatest linear length is 2 mm and invasive tumor involves 1 of 4 cores. Histologic Grade (Sebastien Histologic Score): II of III Tubule Formation: 3 Nuclear Grade: 2 Mitotic Count (40x objective): 1 Total Sebastien Score: 6 of 9 DCIS: Absent Lymphovascular Invasion: No Microcalcifications: No Tumor Necrosis: No Lymph Node Sampling: No Prognostic markers: Performed at outside institution and slides are not provided for review. Results available in outside report. Time between tumor removal and placement into formalin < 1 hour: Yes Fixation between 6-72 hours: Yes Block for Biomarker Testing: A1 Comment: Unstained slides are obtained and immunostains are performed at [facility] histology lab, which shows the invasive carcinoma to be negative for smm, supporting the invasive nature of the carcinoma. IHC for e-cadherin and p120 show membranous staining, supporting ductal differentiation. Specimen 2: Left breast at 3:00 Invasive Carcinoma of the Breast: Biopsy CAP Version: Biopsy 1.0.0.1 Procedure: Needle core biopsy. Laterality: Left Tumor Site: 3:00 Histologic Type: Invasive lobular carcinoma, NOS Size: The entire tumor size is not known. The single greatest linear length is 3 mm and invasive tumor involves 2 of 3 cores. Histologic Grade (Sebastien Histologic Score): I of III Tubule Formation: 3 Nuclear Grade: 1 Mitotic Count (40x objective): 1 Total Sebastien Score: 5 of 9 DCIS: Present, extensive Architectural Patterns: Solid and cribriform Nuclear Grade: 2 to focal 3 (of 3) Lymphovascular Invasion: No Microcalcifications: No Tumor Necrosis: Present, intraductal Lymph Node Sampling: No Prognostic markers: Performed at outside institution and slides are not provided for review. Results available in outside report. Time between tumor removal and placement into formalin < 1 hour: Yes Fixation between 6-72 hours: Yes Block for biomarker testing: B1 Comment: Unstained slides are obtained and immunostains are performed at [facility] histology lab, which shows the invasive carcinoma to show cytoplasmic p120 staining and negative e-cadherin, supporting lobular differentiation of the carcinoma Attestation: By this signature, I attest that I have personally formulated the final interpretation expressed in this report and that the above diagnosis is based upon my examination of the slides and/or other material indicated in this report. +++ +++ adan/06/04/2019 ############################## ############################## ############ Material Received: A: Outside Slides x 12 (x5 USS A1, x5 USS B1), [id number], [facility] Laboratory, [address] [place] [id number] History: 64-year-old female with breast mass. Outside biopsy slides are submitted for review area Gross Description: Low left cut out Gen. well A. Received are twelve (12) outside slides and a report labeled "[id number]". lkr/06/04/2019 If immunohistochemical stains and/or in situ hybridization are cited in this report, the performance characteristics were determined by the Department of Pathology and Laboratory Medicine of the [facility] ([employer]) in compliance with CLIA'88 [...] of Pathology and Laboratory Medicine of the [facility]. It has not been cleared or approved by the FDA. The FDA has determined that such clearance or approval is not necessary. Specimen Performing Organization Address City/State/Zipcode Ph one Number MAIN LAB [address] [place] [address] * PATHOLOGY REPORTS FROM OUTSIDE SCAN (06/04/2019 12:[address] INTERPRETER) Narrative Performed At This result has an attachment that is n ot available. Ordered by an unspecified provider. documented in this encounter Visit Diagnoses Not on filedocumented in this encounter
--- OUTSIDE RECORDS SUMMARY | 2019-10-19 08:31 | XMS REPORT ---
Author Author Ximena Torres Doctor Organization [facility] Address Unknown Phone Unavailable Care Team Providers Care Auto Wheel Alignment Specialist Name Role Phone Migration, Doctor Unavailable Unavailable PROBLEMS Type Condition ICD9-CM Code MZS99-EE Code Onset Dates Condition S tatus SNOMED Code Problem Tobacco abuse Z72.0 Active 263244 [address] elevation myocardial infarction involving rig ht coronary artery I21.11 Active 459414750 Problem Coronary artery disease invo lving [place] coronary artery of [place] heart without angina pectoris I25.10 Active 1641 062140591 Problem Infiltrating ductal carcinoma of left breast C50.9 12 Active 925346191 Problem Non-insulin dependent type 2 diabetes mellitus E11 .9 Active 41895829 Problem History of [place] (myocardial infarction) I25.2 Active 210197524 Problem Post-menopausal bleeding N95.0 Activ e 24281903 Problem Coronary artery disease invo lving [place] coronary artery of [place] heart without angina pectoris I25.10 Active 1641 [id number] ALLERGIES No Information ENCOUNTERS Encounter Location Date Diagnosis [place] [address] [address] Aug, [place] [address] [address] May, Possible urinary tract infection R39.89 ; Infiltrating ductal carcinoma of left breast C50.912 and Body mass index (BMI) of 25.0 to 29.9 E66.3 [place] [address] [address] Apr, [place] [address] [address] Apr, [place] [address] [address] Apr, [place] [address] [address] Apr, Infiltrating ductal carcinoma of left br east C50.912 [place] [address] [address] Apr, [place] [address] [address] 24 Mar, 2019 [place] [address] [address] 10 Mar, 2019 Encounter for screening for malignant ne oplasm of colon Z12.11 and Encounter for screening for malignant neoplasm of rectum Z12.12 [place] [address] [address] 10 Mar, 2019 Breast mass, left N63.20 and Bloody disc harge from left nipple N64.52 [place] [address] [address] 13 Feb, 2019 Non-insulin dependent type 2 diabetes me llitus E11.9 ; Coronary artery disease involving [place] coronary artery of [place] heart without angina pectoris I25.10 ; Tobacco abuse Z72.0 ; Encounter for screening for malignant neoplasm of colon Z12.11 ; Encounter for screening for malignant neoplasm of rectum Z12.12 and Screening for breast cancer Z12.39 [place] [address] [address] 26 Aug, 2018 [place] [address] [address] 14 Aug, 2018 Post-menopausal bleeding N95.0 [place] [address] [address] 12 Aug, 2018 Non-insulin dependent type 2 diabetes me llitus E11.9 ; Tobacco abuse Z72.0 ; Post-menopausal bleeding N95.0 and History of [place] (myocardial infarction) I25.2 [place] [address] [address] Mar, [place] [address] [address] Feb, Non-insulin dependent type 2 diabetes me llitus E11.9 ; History of [place] (myocardial infarction) I25.2 and Tobacco abuse Z72.0 [facility] [address] [address] Jan, [facility] [address] [address] Dec, [facility] [address] [address] Dec, [facility] [address] [address] Dec, [facility] [address] [address] Aug, Non-insulin dependent type 2 diabetes me llitus E11.9 ; Atypical chest pain R07.89 and Tobacco use Z72.0 [facility] [address] [id number] [id number] Aug, [facility] [address] [address] Jun, [facility] [address] [address] May, Non-insulin dependent type 2 diabetes me llitus E11.9 ; Tobacco abuse Z72.0 and History of [place] (myocardial infarction) I25.2 [facility] [address] [address] Mar, Dysphagia, unspecified type R13.10 ; Non -insulin dependent type 2 diabetes mellitus E11.9 and Tobacco abuse Z72.0 [place] [address] [address] Feb, Non-insulin dependent type 2 diabetes me llitus E11.9 ; Dysphagia, unspecified type R13.10 and Tobacco abuse Z72.0 [facility] [address] [address] Feb, [facility] [address] [address] Jan, [facility] [address] [id number] [place] [address] Dec, [facility] [address] [id number] [place] [address] Oct, [facility] [address] [id number] [place] [address] 16 Sep, 2016 ST elevation myocardial infarction invol ving right coronary artery I21.11 ; Tobacco abuse Z72.0 and Non-insulin dependent type 2 diabetes mellitus E11.9 [facility] [address] [id number] [place] [address] Oct, [facility] [address] [id number] [place] [address] Oct, [facility] [address] [id number] [place] [address] Feb, [facility] [address] [id number] [place] [address] Feb, [facility] [address] [id number] [place] [address] Jan, [facility] [address] [id number] [place] [address] Jan, [facility] [address] [id number] [place] [address] Jan, [facility] [address] [id number] [place] [address] Jan, [facility] [address] [id number] [place] [address] Aug, [facility] [address] [id number] [place] [address] Aug, [facility] [address] [id number] [place] [address] Jul, [facility] [address] [id number] [place] [address] Jul, [facility] [address] [id number] [place] [address] 07 Jul, 2013 [facility] [address] [id number] [place] [address] Jul, [facility] [address] [id number] [place] [address] Dec, [facility] [address] [id number] [place] [address] Dec, [facility] [address] [id number] [place] [address] November, [facility] [address] [id number] [place] [address] November, [facility] [address] [id number] [place] [address] November, [facility] [address] [id number] [place] [address] Sep, [facility] [address] [id number] [place] [address] May, [facility] [address] [id number] [place] [address] May, [facility] [address] [id number] [place] [address] May, [facility] [address] [id number] [place] [address] May, [facility] [address] [id number] [place] [address] May, [facility] [address] [id number] [place] [address] May, [facility] [address] [place] [id number] [place] [address] May, [facility] [address] [id number] [place] [address] May, [facility] [address] [id number] [place] [address] Apr, [facility] [address] [place] [id number] [place] [address] Apr, [facility] [address] [place] [id number] [place] [address] Feb, [facility] [address] [place] [id number] [place] [address] Feb, [facility] [address] [place] [id number] [place] [address] Dec, [facility] [address] [place] [id number] [place] [address] November, [facility] [address] [address] November, [facility] [address] [place] [id number] [place] [address] Oct, [facility] [address] [place] [id number] [place] [address] Aug, [facility] [address] [place] [id number] [place] [address] Aug, [facility] [address] [address] Jun, [facility] [address] [place] [id number] [place] [address] May, [facility] [address] [place] [id number] [place] [address] May, [facility] [address] [place] [id number] [place] [address] Jan, [facility] [address] [place] [id number] [place] [address] 14 Oct, 2010 IMMUNIZATIONS No Known Immunizations SOCIAL HISTORY Never Assessed REASON FOR VISIT PLAN OF CARE VITAL SIGNS MEDICATIONS Unknown Medications RESULTS No Results PROCEDURES No Known procedures INSTRUCTIONS MEDICATIONS ADMINISTERED No Known Medications MEDICAL (GENERAL) HISTORY Type Description Date Medical History Hyperlipidemia Medical History Myocardial Infarction (Hx ) 2 stents placed in RCA by DR MACHADO Surgical History Heart Cath 2017 Surgical History Cholecystectomy 1985 Hospitalization History Chest pain-[facility] 09/15/17
--- OUTSIDE RECORDS SUMMARY | 2019-10-19 08:31 | XMS REPORT | Encounter Summary ---
Author Author [facility] Organization [facility] Address Unknown Phone Unavailable Care Team Providers Care Felt Hat Mellowing Machine Operator Name Role Phone PCP Unavailable Encounter Details Care Team Description Date Type Department 04/29/2019 [facility] [address] [address] Social History Date Tobacco Use Types Packs/Day Years Used Never Assessed Sex Assigned at Date Recorded Not on file Industry Job Start Date Occupation Not on file Not on file Not on file Travel End Travel History Travel Start No recent travel history available. documented as of this encounter Medications at Time of Discharge Start Date End Date Medication Sig Dispensed Refills 10/04/2016 aspirin EC 81 mg Take 81 mg by 0 tabletIndications: RESUME mouth daily. 72 HOURS (3 DAYS) AFTER SURGERY 10/04/2016 clopiDOGrel (PLAVIX) 75 Take 75 mg by 0 mg tabletIndications: mouth daily. RESUME 72 HOURS (3 DAYS) AFTER SURGERY. 04/09/2018 Sitagliptin-Metformin Take 1 tablet 0 (JANUMET) 50-500 mg tab by mouth twice daily with meals. documented as of this encounter Plan of Treatment Not on filedocumented as of this encounter Procedures Comments Procedure Name Priority Date/Time Associated Diag nosis US BREAST BIOPSY EXTERNAL Routine 04/29/2019 IMAGING 11:35 AM CDT documented in this encounter Results * US BREAST BIOPSY EXTERNAL IMAGING (04/29/2019 11:35 AM CDT) Specimen Narrative Performed At This order has been auto finalized and does not contain a result. documented in this encounter Visit Diagnoses Not on filedocumented in this encounter
--- OUTSIDE RECORDS SUMMARY | 2019-10-19 08:31 | XMS REPORT ---
Author Author Ximena Torres Doctor Organization [facility] Address Unknown Phone Unavailable Care Team Providers Care Lecturer In Computer Science Name Role Phone Migration, Doctor Unavailable Unavailable PROBLEMS Type Condition ICD9-CM Code OKT25-JR Code Onset Dates Condition S tatus SNOMED Code Problem Tobacco abuse Z72.0 Active 354467 [address] elevation myocardial infarction involving rig ht coronary artery I21.11 Active 327191088 Problem Coronary artery disease invo lving [place] coronary artery of [place] heart without angina pectoris I25.10 Active 1641 201433442 Problem Infiltrating ductal carcinoma of left breast C50.9 12 Active 319896282 Problem Non-insulin dependent type 2 diabetes mellitus E11 .9 Active 29693455 Problem History of [place] (myocardial infarction) I25.2 Active 762281043 Problem Post-menopausal bleeding N95.0 Activ e 00654436 Problem Coronary artery disease invo lving [place] coronary artery of [place] heart without angina pectoris I25.10 Active 1641 [id number] ALLERGIES No Information ENCOUNTERS Encounter Location Date Diagnosis [place] [address] [place] [id number] [place] [address] Aug, Infiltrating ductal carcinoma of left br east C50.912 ; Non-insulin dependent type 2 diabetes mellitus E11.9 ; Dysuria R30.0 and BMI 28.0-28.9,adult Z68.28 [place] [address] [address] May, Possible urinary tract infection R39.89 ; Infiltrating ductal carcinoma of left breast C50.912 and Body mass index (BMI) of 25.0 to 29.9 E66.3 [place] [address] [place] [id number] [place] [address] Apr, [place] [address] [address] Apr, [place] [address] [address] Apr, [place] [address] [address] Apr, Infiltrating ductal carcinoma of left br east C50.912 [place] [address] [address] 09 Apr, 2019 [place] [address] [address] 24 Mar, 2019 [place] [address] [address] 10 Mar, 2019 Encounter for screening for malignant ne oplasm of colon Z12.11 and Encounter for screening for malignant neoplasm of rectum Z12.[address] [address] 10 Mar, 2019 Breast mass, left N63.20 and Bloody disc harge from left nipple N64.[address] [address] 13 Feb, 2019 Non-insulin dependent type 2 diabetes me llitus E11.9 ; Coronary artery disease involving [place] coronary artery of [place] heart without angina pectoris I25.10 ; Tobacco abuse Z72.0 ; Encounter for screening for malignant neoplasm of colon Z12.11 ; Encounter for screening for malignant neoplasm of rectum Z12.12 and Screening for breast cancer Z12.[address] [address] 26 Aug, 2018 [place] [address] [address] 14 Aug, 2018 Post-menopausal bleeding N95.[address] [address] 12 Aug, 2018 Non-insulin dependent type 2 diabetes me llitus E11.9 ; Tobacco abuse Z72.0 ; Post-menopausal bleeding N95.0 and History of [place] (myocardial infarction) I25.[address] [address] Mar, [facility] [address] [address] Feb, Non-insulin dependent type 2 diabetes me llitus E11.9 ; History of [place] (myocardial infarction) I25.2 and Tobacco abuse Z72.0 [place] [address] [address] Jan, [place] [address] [address] Dec, [place] [address] [address] Dec, [place] [address] [address] Dec, [place] [address] [address] Aug, Non-insulin dependent type 2 diabetes me llitus E11.9 ; Atypical chest pain R07.89 and Tobacco use Z72.0 [facility] [address] [id number] [id number] Aug, [place] [address] [address] Jun, [place] [address] [address] May, Non-insulin dependent type 2 diabetes me llitus E11.9 ; Tobacco abuse Z72.0 and History of [place] (myocardial infarction) I25.2 [place] [address] [address] Mar, Dysphagia, unspecified type R13.10 ; Non -insulin dependent type 2 diabetes mellitus E11.9 and Tobacco abuse Z72.0 [place] [address] [address] Feb, Non-insulin dependent type 2 diabetes me llitus E11.9 ; Dysphagia, unspecified type R13.10 and Tobacco abuse Z72.0 [place] [address] [place] [id number] [place] [address] Feb, [facility] [address] [id number] [place] [address] Jan, [facility] [address] [place] [id number] [place] [address] Dec, [facility] [address] [place] [id number] [place] [address] Oct, [facility] [address] [place] [id number] [place] [address] Sep, ST elevation myocardial infarction invol ving right coronary artery I21.11 ; Tobacco abuse Z72.0 and Non-insulin dependent type 2 diabetes mellitus E11.9 [facility] [address] [place] [id number] [place] [address] Oct, [facility] [address] [place] [id number] [place] [address] Oct, [facility] [address] [place] [id number] [place] [address] Feb, [facility] [address] [place] [id number] [place] [address] Feb, [facility] [address] [place] [id number] [place] [address] Jan, [facility] [address] [place] [id number] [place] [address] Jan, [facility] [address] [place] [id number] [place] [address] Jan, [facility] [address] [id number] [place] [address] Jan, [facility] [address] [place] [id number] [place] [address] Aug, [facility] [address] [id number] [place] [address] Aug, [facility] [address] [place] [id number] [place] [address] Jul, [facility] [address] [id number] [place] [address] Jul, [facility] [address] [id number] [place] [address] Jul, [facility] [address] [id number] [place] [address] Jul, [facility] [address] [id number] [place] [address] Dec, [facility] [address] [facility] [id number] [facility] [place] [address] Dec, [facility] [address] [id number] [place] [address] November, [facility] [address] [id number] [place] [address] November, [facility] [address] [id number] [place] [address] November, [facility] [address] [id number] [place] [address] Sep, [facility] [address] [id number] [place] [address] May, [facility] [address] [id number] [place] [address] May, [facility] [address] [id number] [place] [address] May, [facility] [address] [id number] [place] [address] May, [facility] [address] [id number] [place] [address] May, [facility] [address] [id number] [place] [address] May, [facility] [address] [id number] [place] [address] May, [facility] [address] [place] [id number] [place] [address] 05 May, 2012 [facility] [address] [place] [address] [id number] [place] [address] Apr, [facility] [address] [place] [id number] [place] [address] Apr, [facility] [address] [place] [id number] [place] [address] Feb, [facility] [address] [place] [id number] [place] [address] Feb, [facility] [address] [place] [address] [id number] [place] [address] Dec, [facility] [address] [place] [id number] [place] [address] November, [facility] [address] [address] November, [facility] [address] [address] [id number] [place] [address] Oct, [facility] [address] [place] [address] [id number] [place] [address] Aug, [facility] [address] [address] Aug, [facility] [address] [place] [address] [id number] [place] [address] Jun, [facility] [address] [place] [id number] [place] [address] May, [facility] [address] [place] [id number] [place] [address] May, [facility] [address] [id number] [place] [address] 15 Jan, 2011 [facility] [address] [id number] [place] [address] 14 Oct, 2010 IMMUNIZATIONS No Known Immunizations SOCIAL HISTORY Never Assessed REASON FOR VISIT PLAN OF CARE VITAL SIGNS MEDICATIONS Unknown Medications RESULTS No Results PROCEDURES No Known procedures INSTRUCTIONS MEDICATIONS ADMINISTERED No Known Medications MEDICAL (GENERAL) HISTORY Type Description Date Medical History Hyperlipidemia Medical History Myocardial Infarction (Hx ) 2 stents placed in RCA by DR MACHADO Surgical History Heart Cath 2016 Surgical History Cholecystectomy 1985 Surgical History Left mastectomy 07/06/2019 Hospitalization History Chest pain-[facility] 09/15/17 Hospitalization History Post-mastectomy 07/06-07/07/2019
--- OUTSIDE RECORDS SUMMARY | 2019-10-19 08:31 | XMS REPORT ---
Author Author Ximena Torres Doctor Organization [facility] Address Unknown Phone Unavailable Care Team Providers Care Junior Java Developer Name Role Phone Migration, Doctor Unavailable Unavailable PROBLEMS Type Condition ICD9-CM Code MRL31-XZ Code Onset Dates Condition S tatus SNOMED Code Problem ST elevation myocardial infarction involving rig ht coronary artery I21.11 Active 006300864 Problem Non-insulin dependent type 2 diabetes mellitus E11 .9 Active 97362518 Problem Tobacco abuse Z72.0 Active 111196 000 Problem Infiltrating ductal carcinoma of left breast C50.9 12 Active 854258731 Problem Interstitial cystitis N30.10 Active 077141391 Problem History of MO (myocardial infarction) I25.2 Active 422191826 Problem Post-menopausal bleeding N95.0 Activ e 73570048 Problem Coronary artery disease invo lving atka coronary artery of atka heart without angina pectoris I25.10 Active 1641 814969162 Problem Coronary artery disease invo lving atka coronary artery of [place] heart without angina pectoris I25.10 Active 1641 [id number] ALLERGIES No Information ENCOUNTERS Encounter Location Date Diagnosis [address] [address] Sep, Dysuria R30.0 and Interstitial cystitis N30.10 [place] [address] [address] Aug, Infiltrating ductal carcinoma of left br east C50.912 ; Non-insulin dependent type 2 diabetes mellitus E11.9 ; Dysuria R30.0 and BMI 28.0-28.9,adult Z68.[address] [address] May, Possible urinary tract infection R39.89 ; Infiltrating ductal carcinoma of left breast C50.912 and Body mass index (BMI) of 25.0 to 29.[address] [place] [address] Apr, [facility] [address] [address] Apr, [facility] [address] [address] Apr, [facility] [address] [address] Apr, Infiltrating ductal carcinoma of left br east C50.912 [place] [address] [address] Apr, [place] [address] [address] 24 Mar, 2019 [place] [address] [address] 10 Mar, 2019 Encounter for screening for malignant ne oplasm of colon Z12.11 and Encounter for screening for malignant neoplasm of rectum Z12.12 [place] [address] [address] 10 Mar, 2019 Breast mass, left N63.20 and Bloody disc harge from left nipple N64.52 [place] [address] [address] 13 Feb, 2019 Non-insulin dependent type 2 diabetes me llitus E11.9 ; Coronary artery disease involving atka coronary artery of atka heart without angina pectoris I25.10 ; Tobacco abuse Z72.0 ; Encounter for screening for malignant neoplasm of colon Z12.11 ; Encounter for screening for malignant neoplasm of rectum Z12.12 and Screening for breast cancer Z12.39 [place] [address] [address] Aug, [place] [address] [address] 14 Aug, 2018 Post-menopausal bleeding N95.0 [place] [address] [address] 12 Aug, 2018 Non-insulin dependent type 2 diabetes me llitus E11.9 ; Tobacco abuse Z72.0 ; Post-menopausal bleeding N95.0 and History of MO (myocardial infarction) I25.2 [place] [address] [address] Mar, [place] [address] [address] Feb, Non-insulin dependent type 2 diabetes me llitus E11.9 ; History of MO (myocardial infarction) I25.2 and Tobacco abuse Z72.0 [place] [address] [address] Jan, [place] [address] [address] Dec, [place] [address] [address] Dec, [place] [address] [address] Dec, [place] [address] [address] Aug, Non-insulin dependent type 2 diabetes me llitus E11.9 ; Atypical chest pain R07.89 and Tobacco use Z72.0 [place] [address] [facility] [id number] [id number] Aug, [place] [address] [address] Jun, [place] [address] [address] May, Non-insulin dependent type 2 diabetes me llitus E11.9 ; Tobacco abuse Z72.0 and History of MO (myocardial infarction) I25.2 [place] [address] [address] Mar, Dysphagia, unspecified type R13.10 ; Non -insulin dependent type 2 diabetes mellitus E11.9 and Tobacco abuse Z72.0 [place] [address] [place] [address] Feb, Non-insulin dependent type 2 diabetes me llitus E11.9 ; Dysphagia, unspecified type R13.10 and Tobacco abuse Z72.0 [facility] [address] [place] [id number] [place] [address] Feb, [facility] [address] [address] Jan, [facility] [address] [address] Dec, [facility] [address] [address] Oct, [facility] [address] [address] Sep, ST elevation myocardial infarction invol ving right coronary artery I21.11 ; Tobacco abuse Z72.0 and Non-insulin dependent type 2 diabetes mellitus E11.9 [facility] [address] [address] Oct, [facility] [address] [place] [id number] [place] [address] Oct, [facility] [address] [address] Feb, [facility] [address] [address] Feb, [facility] [address] [place] [id number] [place] [address] Jan, [facility] [address] [place] [id number] [place] [address] Jan, [facility] [address] [place] [id number] [place] [address] Jan, [facility] [address] [place] [id number] [place] [address] Jan, [facility] [address] [place] [id number] [place] [address] Aug, [facility] [address] [id number] [place] [address] Aug, [facility] [place] [facility] [address] [id number] [place] [address] Jul, [facility] [place] [facility] [address] [id number] [place] [address] Jul, [facility] [place] [address] [id number] [place] [address] Jul, [facility] [place] [facility] [address] [id number] [place] [address] Jul, [facility] [place] [facility] [address] [id number] [place] [address] Dec, [facility] [place] [address] [id number] [place] [address] Dec, [facility] [place] [facility] [address] [id number] [place] [address] November, [facility] [place] [address] [id number] [place] [address] November, [facility] [place] [address] [id number] [place] [address] November, [facility] [place] [address] [id number] [place] [address] Sep, [facility] [address] [id number] [place] [address] May, [facility] [place] [address] [id number] [place] [address] May, [facility] [place] [address] [id number] [place] [address] May, [facility] [address] [id number] [place] [address] May, [facility] [place] [address] [id number] [place] [address] May, [facility] [place] [address] [id number] [place] [address] May, [facility] [place] [address] [id number] [place] [address] May, [facility] [place] [address] [id number] [place] [address] May, [facility] [place] [address] [id number] [place] [address] Apr, [facility] [place] [address] [id number] [place] [address] Apr, [facility] [place] [facility] [address] [id number] [place] [address] Feb, [facility] [place] [address] [id number] [place] [address] Feb, [facility] [address] [id number] [place] [address] Dec, [facility] [place] [address] [id number] [place] [address] November, [facility] [address] [id number] [place] [address] November, [facility] [address] [id number] [place] [address] Oct, [facility] [address] [id number] [place] [address] 10 Aug, 2011 [facility] [place] [facility] [address] [id number] [place] [address] Aug, [facility] [address] [id number] [place] [address] Jun, [facility] [address] [id number] [place] [address] May, [facility] [address] [id number] [place] [address] 04 May, 2011 [facility] [address] [id number] [place] [address] 15 Jan, 2011 [facility] [address] [facility] [id number] [place] [address] Oct, IMMUNIZATIONS No Known Immunizations SOCIAL HISTORY Never [...]
--- OUTSIDE RECORDS SUMMARY | 2019-10-19 08:31 | XMS REPORT ---
Author Author [employer]. Organization [employer]. Address [address] [address] Care Team Providers Care Acidizer Water Well Name Role Phone NO, LOCAL PHYSICIAN Unavailable Unavailable GAULT, DENISE R Unavailable GAULT, DENISE Unavailable GAULT, DENISE Unavailable GAULT, DENISE Unavailable GAULT, DENISE Unavailable KONSTANTINSAUD AlT Unavailable GAULT, DENISE Unavailable GAULT, DENISE Unavailable FORREST SEGAL Unavailable Unavailable GAULT, DENISE Unavailable GAULT, DENISE Unavailable GAULT, DENISE Unavailable JEANNETTE MOSS [facility], EMMANUEL ULLOA CCDS Unavailable UnavailBRIAN Bradley APRN Unavailable Unavailable FORREST SEGALP Unavailable Unavailable GAULT, DENISE Unavailable ANGI BO Unavailable Unavailable GAULT, DENISE Unavailable GAULT, DENISE Unavailable Migration, Doctor Unavailable Unavailable OMAYRA ADAMS Unavailable Unavailable WOOD, CHELSEA Unavailable Unavailable WOOD, CHELSEA Unavailable Unavailable Migration, Doctor Unavailable Unavailable GAULT, DENISE Unavailable Unavailable Migration, Doctor Unavailable Unavailable NAMRATA LOPEZ APRN Unavailable Unavailable DENISE HILL MD R Unavailable Unavailable DENISE HILL MD R Unavailable Unavailable JEANNETTE MOSS [facility], EMMANUEL ULLOA CCDS Unavailable UnavailBRIAN Bradley APRN Unavailable Unavailable Migration, Doctor Unavailable Unavailable OMAYRA ADAMS Unavailable Unavailable WOOD, CHELSEA Unavailable Unavailable WOOD, CHELSEA Unavailable Unavailable Unavailable Unavailable Migration, Doctor Unavailable Unavailable Migration, Doctor Unavailable Unavailable GLYNN PERRY MD Unavailable Unavailable Allergies Normalized Allergy Reported Date of Reaction(s) Care Provider Facility Allergy Type classification allergen Allergy Onset Drug Allergy Angiotensin Lisinopril 11-09-2014 - Unknown Doctor Community (1 source.) Converting Translations: [facility] ter Enzyme (TU) [ Lisinopril [place] Inhibitors Mg Tablet] [place] ([address]) Medications Current Medications Medication Ingredient Drug Dose Dates Status Sig Sig Care Class(es) (Normalized) (Original) Provid er ciprofloxac Ciprofloxac Quinolone 500 mg 03-06-20 Active take 1 Cipro 500 mg no in 500 mg in Antimicrobi 12 tablet by 1 tablet by name oral tablet Translation al mouth every Oral route (no (1 source.) s: [ Cipro twelve hours every 12 phone) 500 mg] hours for 10 day(s) Feb, Active no Ciprofloxac Corticoster 3 12-16-19 Active no Cip rodex no information in / oid, drop(s 13 information 0.3-0.1 % 3 name (1 source.) Dexamethaso Quinolone ) drop by Otic (no ne Antimicrobi route 2 phone) al times per day for 7 day(s) November, Active metFORMIN metFORMIN / Biguanide, 04-09-20 Active no Janumet no hydrochlori SITagliptin Dipeptidyl 18 information 50-500 MG name de 500 mg / Translation Peptidase 4 Orally Twice (no SITagliptin s: [ Inhibitor a day 1 phone) 50 mg oral Janumet tablet 12h tablet (1 50-500 MG] Mar, source.) Active methylPREDN methylPREDN Corticoster 4 mg 12-16-19 Active take 1 dose MethylPREDNI no ISolone 4 ISolone oid 13 by mouth Solone 4 mg name mg oral Translation once daily by Oral (no tablet (1 s: [ route every phone) source.) MethylPREDN day for 6 ISolone 4 days as mg] directed per dose pack November, Active sulfamethox Sulfamethox Dihydrofola 01-01-20 Active take 1 Bactr im DS no azole 800 azole / te 13 tablet by 800-160 mg 1 nam e mg / Trimethopri Reductase mouth twice tablet by (no trimethopri m Inhibitor daily Oral route 2 phone ) m 160 mg Translation Antibacteri times per oral tablet s: [ al, day for 10 (1 source.) Bactrim DS Sulfonamide day(s) 05 800-160 mg] Antimicrobi Dec, 2012 al Active Completed/Discontinued Medications Medication Ingredient Drug Dose Dates Status Sig Sig Care Class(es) (Normalized) (Original) Provid er no HEPARIN no 10-03-19 no no no no information 5,000 information 17 - informat information infor mation name (1 source.) units/cc 10-03-19 ion (no 1cc vial 17 phone) no HEPARIN no 10-03-19 no no no no information DRIP IV BAG information 17 - informat informati on information name (1 source.) INJ 100 10-18-19 ion (no U/CC 17 phone) (HEPARIN DRIP 250CC PREMIX BAG) no MORPHINE no 10-03-19 no no no no information SYRINGE INJ information 17 - informat informati on information name (1 source.) 2 MG/CC 10-03-19 ion (no 17 phone) no Normal no 10-03-19 no no no no information saline information 17 - informat information infor mation name (1 source.) 10-03-19 ion (no 17 phone) Problems Problem Normalized Date of Normalized Normalized Provider Fac ility Classification Problem(s) Problem Problem Problem Sta tus Onset/Resoluti Duration on Other upper Acute Episodic Active ANGI ABURTO Not Massiel ilable respiratory sinusitis, , [place] ([address]) infections (10 unspecified sources.) Other Body mass Episodic Active Doctor Community nutritional; index (BMI) [facility] endocrine; and 28.0-28.9, of [facility] metabolic adult [place] ([address]) disorders (2 Translations: sources.) [ - BMI 28.0-28.9,adul t Z68.28] Urinary tract Chronic Chronic Active Doctor Community infections (2 interstitial [facility] sources.) cystitis of [facility] Translations: [place] ([address]) [ Interstitial cystitis, - Interstitial cystitis N30.10] Congestive Chronic 09-29-2019 - Chronic Active [facility] Via heart failure; systolic [facility] nonhypertensiv (congestive) Hospital - e (7 sources.) heart failure [place] ([address]) Other Disorder of 09-29-2019 - Chronic Active FORREST Nam VC Via circulatory arteries and Marija disease (6 arterioles, Hospital - sources.) unspecified [place] ([address]90) Immunizations Encounter for 09-29-2019 - Episodic Active KARYN MCGOVERN Via and screening immunization MD [facility] for infectious Hospital - disease (7 [place] sources.) (46770) Essential Essential 09-29-2019 - Chronic Active BRIAN JENKINS [facility] Via hypertension (primary) Marija (11 sources.) hypertension [facility] (89710) Esophageal Gastro-esophag 09-29-2019 - Chronic Active DENISE HEATH [facility] Via disorders (7 eal reflux [facility] sources.) disease Hospital - without [place] esophagitis (90308) Hypertension Hypertensive 09-29-2019 - Chronic Active DENISE HEATH [facility] Via with heart disease MD [facility] complications with heart Hospital - and secondary failure [place] hypertension (548[address]) (7 sources.) Other longterm 09-29-2019 - Episodic Active BRIAN JENKINS [facility] Via aftercare (11 (current) use Marija sources.) of Hospital - antithrombotic [place] s/antiplatelet (15048) s Other longterm 09-29-2019 - Episodic Active DENISE HILL [facility] Via aftercare (7 (current) use [facility] sources.) of aspirin [facility] (24411) Substance-rela Nicotine 09-29-2019 - Chronic Active BRIAN FRAZIER [facility] Via krupa disorders dependence, Marija (18 sources.) cigarettes, [facility] uncomplicated [place] (17393) Heart valve Nonrheumatic 09-29-2019 - Chronic Active FORRESTHER SEGAL [facility] Via disorders (6 mitral (valve) Marija sources.) insufficiency [facility] (74316) Occlusion or Occlusion and 09-29-2019 - Chronic Active DENISE [facility] Via 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 Hospital - arteries (7 carotid [place] sources.) arteries (37378) Malaise and Other fatigue 09-29-2019 - Episodic Active EMMANUEL YOUNG , [facility] Via fatigue (8 MA FSCAI Marija sources.) [facility] (18048) Disorders of Other 09-29-2019 - Chronic Active EMMANUEL MATHEW , Not Available lipid hyperlipidemia MD HERNANDEZ (09040) metabolism (20 Translations: sources.) [ HYPERLIPIDEMIA , UNSPECIFIED] Other Other long 09-29-2019 - Episodic Active BRIAN JENKINS [facility] Via aftercare (18 term (current) Marija sources.) drug therapy Hospital [facility] (08884) Other Pain in left 09-29-2019 - Episodic Active BRIAN JENKINS [facility] Via connective foot [facility] tissue disease [facility] - (11 sources.) [place] ([address]105) Other Pain in left 09-29-2019 - Episodic Active DENISE HILL , [facility] Via non-traumatic shoulder [facility] joint [facility] - disorders (7 [place] sources.) (99484) Residual Patient's 09-29-2019 - Episodic Active EMMANUEL MATHEW [facility] Via codes; noncompliance MD FLORA [facility] unclassified with other Hospital - (2 sources.) medical [place] treatment and (70387) regimen Coronary Presence of 09-29-2019 - Episodic Active DENISE HILL , [facility] Via atherosclerosi coronary MD Marija luis and other angioplasty Hospital - heart disease [facility] and [place] (1 source.) graft (82539) Coronary Presence of Episodic Active DENISE HILL , Not Av ailable renay coronary (84533) janelle and other angioplasty heart disease implant and (7 sources.) graft Translations: [ OLD MYOCARDIAL INFARCTION, ATHSCL HEART DISEASE OF [place] CORONARY ] Open wounds of Puncture wound 09-04-2019 - Episodic Active SIM ON [facility] extremities (2 without District [facility] of sources.) foreign [facility] initial encounter Translations: [ OPEN WOUND OF HAND EXCEPT FINGERS ALONE, WITHOUT MENTION OF COMPLICATION] Cardiac Ventricular 09-29-2019 - Chronic Active EMMANUEL MATHEW , [facility] Via dysrhythmias tachycardia MD FLORA [facility] (10 sources.) [facility] (37976) Procedures Procedure Normalized Procedure Procedure Result Performer Facility Date 03-10-2018 Hemoglobin no information no name (no phone) [facility] glycosylated a1c [facility] (00465) 09-24-2017 Hemoglobin no information no name (no phone) Comm [facility] glycosylated a1c [facility] (80851) Immunizations Normalized Immunization Date Notes Care Provider Facili ty Immunization influenza virus 09-16-2017 no information no name no info rmation vaccine, split virus (incl. purified surface antigen) influenza, 07-07-2019 no information no name [facility]. injectable, Historical Data Code quadrivalent, (16046) preservative free TETANUS,DIPTH,PERT 08-18-2019 no information no name Hosp ital [facility] ADULT INJ 0 (ADACEL of [facility] SYRINGE) (62523) Results Test Name Value Interpretation Reference Range Date Time Fa cility (Normalized) (Normalized) (Medline Reference) a1c (in house) on null HbA1c 7.4 % (no code) 0 - 5.7 % [facility] (44459) Hemoglobin 8.1 % (no code) 0 - 5.7 % [facility] A[facility] fraction (Bld) (64765) A1C (IN HOUSE) 0812 (no code) [facility] (02248) A1C (IN HOUSE) 05/2019 (no code) [facility] (93868) A1C (IN HOUSE) 0856 (no code) [facility] (58289) A1C (IN HOUSE) 09/2019 (no code) [facility] (50204) No panel information on null Exp date 09/2019 (no code) [facility] Healt [facility] (92724) Lot 8.1~7.4~0856 (no code) [facility] (79182) No panel information on 2019-10-02 Bacteria SEE NOTE (no code) [facility] Cx [facility] (U) [facility] (00442) BLO Trace-intact (no code) [facility] (37059) KET 09/2020~slightly (no code) [facility] Hea lt cloudy~yellow~no [facility] ne~Negative~Nega [facility] tive~Negative (05687) TIMUR no information (no code) [facility] (56048) Lot # [id number] (no code) [facility] (84221) pH (Bld) 7.5 [pH] (no code) 7.38 - 7.42 [pH] Communit [facility] (64223) Protein (U) no information (no code) 0 - 20 mg/dL Community [facility] [Mass/Vol] [facility] (40399) SG 1.020 (no code) [facility] (47920) URO 0.2 (no code) [facility] (77903) No panel information on 2019-09-22 BLO no information (no code) [facility] (26276) Exp date 06/2021 (no code) [facility] (85501) KET 07/2020~clear~yel (no code) Community Hea lt low~none~negativ [facility] e~negative~negat [facility] shady (75609) Lot 6.3~6.6~0610 (no code) [facility] (23656) Lot # [id number] (no code) [facility] (00585) pH (Bld) 7.0 [pH] (no code) 7.38 - 7.42 [pH] Communit [facility] (40762) Protein (U) no information (no code) 0 - 20 mg/dL [facility] [Mass/Vol] [facility] (29548) SG 1.020 (no code) [facility] (04981) URO 0.2 (no code) [facility] (56229) No panel information on 2019-06-22 Color (U) 06/17~clear~yell (no code) Community Hea lt ow [facility] (37136) KET no information (no code) [facility] (07908) Lot # [id number] (no code) [facility] (55937) pH (Bld) 5.5 [pH] (no code) 7.38 - 7.42 [pH] [facility] (51967) Protein (U) no information (no code) 0 - 20 mg/dL [facility] [Mass/Vol] [facility] (69002) SG 1.010 (no code) [facility] (72813) URO 0.2 (no code) [facility] (06854) No panel information on 2019-04-04 Exp Date no information (no code) [facility] (05610) No panel information on 2019-04-02 Exp date no information (no code) [facility] (72320) No panel information on 2019-03-10 Exp date 10/16 (no code) [facility] (77564) Lot 6.6~6.2~0993 (no code) [facility] (73268) No panel information on 2018-09-11 A COMMENT no information (no code) [facility] (31217) CLINICAL no information (no code) [facility] INFORMATION [facility] (37217) CLINICAL no information (N) [facility] INFORMATION: [facility] (58772) COMMENT no information (no code) [facility] (86308) Innovation Analyst Cyto no information (N) [facility] stain Nom [facility] (Cvx/Vag) [ID] [facility] (08395) Date of previous no information (N) [facility] biopsy [facility] (79185) Date of previous no information (N) [facility] PAP smear [facility] (81301) HPV E6+E7 mRNA Not Detected (N) [facility] BUBBA+probe Ql [facility] (Cvx) [facility] (43630) Last menstrual no information (N) [facility] period start [facility] (15063) Microscopic no information (no code) [facility] observation Cyto [facility] Nom (Cvx) [facility] (01761) Pathologist name no information (no code) [facility] (24603) Pathology report no information (no code) [facility] final diagnosis [facility] (94757) Pathology report no information (no code) [facility] gross [facility] Narrative (84562) Specimen source Cervix (N) [facility] Cyto stain Nom [facility] (Cvx/Vag) [facility] (23676) Specimen source no information (no code) [facility] Nom (Unsp spec) [facility] (72317) Statement of no information (N) [facility] adequacy Cyto [facility] stain (Cvx/Vag) [facility] [Interp] (91445) No panel information on 2017-09-24 Exp date 05/2019 (no code) [facility] (98687) Lot 7.4~7.0~0812 (no code) [facility] (62336) No panel information on 2016-10-02 Albumin BCG dye 4.2 (no code) 10-02-2016 Not Availa ble [Mass/Vol] 16: (71981) ALP [Catalytic 126 U/L (no code) 44 - 147 U/L 10-02-2016 Not Available activity/Vol] 16: (43541) ALT [Catalytic 31 U/L (no code) 4 - 40 U/L 10-02-2016 Not Av ailable activity/Vol] 16: (20985) Anion gap 16 mmol/L (H) 3 - 11 mmol/L 10-02-2016 Not Avai lable [Moles/Vol] 16: (08476) AST [Catalytic 22 U/L (no code) 10 - 34 U/L 10-02-2016 Not A vailable activity/Vol] 16: (84322) Basophils (Bld) 0.0 10*3/uL (no code) 0 - 0.3 10*3/uL 10-02-2016 Not Available [#/Vol] 16: (60362) Basophils/100 0.20 % (no code) 0.5 - 1 % 10-02-2016 Not Avai lable WBC (Bld) 16: (73788) Bilirubin 0.3 mg/dL (no code) 0.1 - 1.2 mg/dL 10-02-2016 Not Av ailable [Mass/Vol] 16: (25634) Calcium 10.4 mg/dL (no code) 8.5 - 10.2 mg/dL 10-02-2016 Not Available [Mass/Vol] 16: (91379) Chloride 106 mmol/L (no code) 95 - 106 mmol/L 10-02-2016 Not A vailable [Moles/Vol] 16: () CK [Catalytic 69 U/L (no code) 10-02-2016 Not Availabl e activity/Vol] 16: () CK.MB [Mass/Vol] 1.4 ng/mL (no code) 0 - 4.3 ng/mL 10-02-2016 N ot Available 16: () Creatinine 1.14 mg/dL (no code) 10-02-2016 Not Available [Mass/Vol] 16: () Electrocardiogra Complete (no code) 10-02-2016 Not Avail able ms recorded 16: () Eosinophils 0.1 10*3/uL (no code) 0.05 - 0.5 10-02-2016 Not Massiel ilable (Bld) [#/Vol] 10*3/uL 16: () Eosinophils/100 1.7 % (no code) 1 - 4 % 10-02-2016 Not Av ailable WBC (Bld) 16: () Erythrocyte 13.8 % (no code) 11.6 - 14.6 % 10-02-2016 Not Av ailable distribution 16: () width (RBC) [Ratio] GFR/1.73 sq 48 (L) 90 - 120 10-02-2016 Not Availa ble M.predicted MDRD mL/min/{1.73_m2} mL/min/{1.73_m2} 16: () (S/P/Bld) [Vol rate/Area] Globulin (S) 3.5 g/dL (no code) 2 - 3.5 g/dL 10-02-2016 Not Av ailable [Mass/Vol] 16: () Glucose 129 mg/dL (H) 60 - 125 mg/dL 10-02-2016 Not Massiel ilable [Mass/Vol] 16:110500 (96040) HCO3 (P) 25 (no code) 10-02-2016 Not Available [Moles/Vol] 16:0500 (09232) Hematocrit (Bld) 42.7 % (no code) 36.1 - 50.3 % 10-02-2016 N ot Available [Volume 16:0 (04125) fraction] Hemoglobin (Bld) 14.1 g/dL (no code) 12.1 - 17.2 g/dL 10-02-2016 Not Available [Mass/Vol] 16:110500 (74401) Lymphocytes 2.26 10*3/uL (no code) 0.9 - 2.9 10-02-2016 Not Massiel ilable (Bld) [#/Vol] 10*3/uL 16:110500 (37517) Lymphocytes/100 28.1 % (no code) 20 - 40 % 10-02-2016 Not Av ailable WBC (Bld) 16:0500 (76476) MCH (RBC) 30.7 pg (no code) 27 - 31 pg 10-02-2016 Not Availab le [Entitic mass] 16:110500 (42070) MCHC (RBC) 33.0 g/dL (no code) 32 - 36 g/dL 10-02-2016 Not Avai lable [Mass/Vol] 16:110500 (41856) MCV (RBC) 93.0 fL (no code) 80 - 100 fL 10-02-2016 Not Availa ble [Entitic vol] 16:110500 (00127) Monocytes (Bld) 0.5 10*3/uL (no code) 0.3 - 0.9 10-02-2016 Not Available [#/Vol] 10*3/uL 16:11-0500 (23175) Monocytes/100 6.5 % (no code) 2 - 8 % 10-02-2016 Not Avai lable WBC (Bld) 16:110500 (32609) Myoglobin 29.3 ng/mL (no code) 10-02-2016 Not Available [Mass/Vol] 16:11-0500 (31887) Neutrophils 5.11 10*3/uL (no code) 1.7 - 7 10*3/uL 10-02-2016 N ot Available (Bld) [#/Vol] 16: (91372) Neutrophils/100 63.5 % (no code) 40 - 60 % 10-02-2016 Not Av ailable WBC (Bld) 16: (94951) Osmolality Calc 299 (H) 10-02-2016 Not Availa ble [Osmolality] 16: (09053) Platelet mean 10.9 fL (H) 7.2 - 11.7 fL 10-02-2016 Not Available volume (Bld) 16: (43255) [Entitic vol] Platelets (Bld) 192 10*3/uL (no code) 150 - 450 10-02-2016 Not Available [#/Vol] 10*3/uL 16: (45500) Potassium 4.1 mmol/L (no code) 3.7 - 5.2 mmol/L 10-02-2016 Not Available [Moles/Vol] 16: (29238) Protein 7.7 g/dL (no code) 6.4 - 8.3 g/dL 10-02-2016 Not Massiel ilable [Mass/Vol] 16: (10971) RBC (Bld) 4.59 10*6/uL (no code) 4.2 - 6.1 10-02-2016 Not Avail able [#/Vol] 10*6/uL 16: (31375) Sodium 143 mmol/L (no code) 135 - 145 mmol/L 10-02-2016 Not Available [Moles/Vol] 16: (80208) Troponin ng/mL (no code) 0 - 0.4 ng/mL 10-02-2016 Not Avai lable I.cardiac 16: (53361) [Mass/Vol] Urea nitrogen 20 mg/dL (no code) 7 - 20 mg/dL 10-02-2016 Not A vailable [Mass/Vol] 16: (09324) WBC (Bld) 8.05 10*3/uL (no code) 3.5 - 10.5 10-02-2016 Not Avai lable [#/Vol] 10*3/uL 16:0500 (45257) Vital Signs Vital Sign Value Interpretation Reference Date Time Care Prov ider Facility (Normalized) (Normalized) Range BMI (Body Mass 28.32 kg/m2 (no code) 15 - 25 kg/m2 03-10-2018 HO LLEli GAULT Community Index) 16:40-[address] [place] [address] (58035) BMI (Body Mass 28.41 kg/m2 (no code) 15 - 25 kg/m2 09-24-2017 HO LLY GAULT Community Index) 11:00-[address] [place] [address] (86372) Body 98.1 [degF] (no code) 97.8 - 99.0 03-10-2018 DENISE OSVALDO T [facility] Temperature [degF] 16:40-[address] [place] [address] (92256) Body 97.6 [degF] (no code) 97.8 - 99.0 09-24-2017 DENISE OSVALDO T [facility] Temperature [degF] 11:00-[address] [place] [address] (41073) Height 177.8 cm (no code) cm 03-10-2018 DENISE GAULT Com munity 16:40-[address] [place] [address] (54453) Height 177.8 cm (no code) cm 09-24-2017 DENISE GAULT Com munity 11:00-[address] [place] [address] ([id number]) Weight 89.54 kg (no code) kg 03-10-2018 DENISE GAULT Com munity 16:40-[address] [place] [address] (71993) Weight 89.81 kg (no code) kg 09-24-2017 DENISE GAULT Com munity 11:00-[address] [place] [address] ([id number]) Interventions No Information Plan of Treatment The data below is from unstructured sources Discharge Date 10/04/16 1:20pm Instructions/Education Provided CARD IAC CATH DISCHARGE INSTRUC Prescriptions See Medication Section Discharge Date 12/15/16 2:35pm Disposition 01 HOME, SELF-CARE Condition at Discharge Stable Instructions/Education Provided Gout (DC) Prescriptions See Medication Section Referrals DENISE HILL MD Order Date: Primary Care Physician Address: [address] [place] [address] [phone] Additional Instructions/Education 1. Return to ER for any fevers, worsening redness or swelling or other concerns 2. Follow-up with her regular doctor lat er this week 3. All discharge instructions reviewed w ith patient and/or family. Voiced understanding. Activity Details Follow Up f/u after Barium swallow f or results Reason: Activity Details Follow Up 2 Months with Gault f/u DM with A1c Reason: Activity Details Follow Up 3 Months with Gault f/u DM Reason: Activity Details Follow Up 3 Months with Gault f.u DM /CAD Reason: Activity Details Follow Up 6 Months with Gault f.u NI DDM Reason: Goals No Information Social History No Information Functional Status The data below is from unstructured sources Query Response Date Neo rded Patient Orientation Person Place Time Situation Normal For Age October 04, 2016 1:31pm Comprehension Ability Understands Co ncepts October 04, 2016 8:00am Mental Status No Information Encounters Encounter Normalized Encounter Encounter Diagnosis Care Provi loretta Organization Date Type 10-02-2019 [facility] [place] Dysuria NAMRATA LOPEZ (no [facility] [place] phone) (no phone) 09-22-2019 [facility] [place] Malignant neoplasm of H MAY HILL (no phone) [facility] [place] - unspecified site of (no phone) 09-22-2019 left female breast - 09-22-2019 09-15-2017 Emergency department no information no name (no dayanara ne) no organization name patient visit (no phone) 12-15-2016 Emergency department no information BRIAN SEO (no [facility] - patient visit phone) [facility] 12-15-2016 (no phone) 09-15-2017 Evaluation and no information no name (no phone) n o organization name - management of (no phone) 09-16-2017 inpatient 09-15-2017 Evaluation and no information no name (no phone) n o organization name - management of (no phone) 09-16-2017 inpatient 09-15-2017 Evaluation and no information DENISE HILL MD (no [facility] - management of phone) [facility] 09-16-2017 inpatient (no phone) 03-10-2018 Patient encounter no information no name (no phone) no organization name (no phone) 02-07-2018 Patient encounter no information no name (no phone) no organization name (no phone) 01-22-2018 Patient encounter no information no name (no phone) no organization name (no phone) 09-24-2017 Patient encounter no information no name (no phone) no organization name (no phone) 09-15-2017 Patient encounter no information no name (no phone) no organization name - (no phone) 09-16-2017 08-07-2017 Patient encounter no information no name (no phone) no organization name (no phone) 04-16-2017 Patient encounter no information no name (no phone) no organization name (no phone) 04-08-2017 Patient encounter no information no name (no phone) no organization name (no phone) 02-06-2017 Patient encounter no information no name (no phone) no organization name (no phone) 11-06-2016 Patient encounter no information no name (no phone) no organization name (no phone) 10-08-2016 Patient encounter no information no name (no phone) no organization name (no phone) 10-02-2016 Patient encounter no information no name (no phone) no organization name - (no phone) 10-04-2016 12-19-2012 Patient encounter no information no name (no phone) no organization name (no phone) Patient encounter no information no name (no phone) no organ ization name (no phone) 10-08-2019 Patient encounter no information GLYNN PERRY MD (no [facility] procedure phone) [facility] (no phone) 10-02-2019 Patient encounter no information GLYNN PERRY MD (no [facility] procedure phone) [facility]) (no phone) 09-22-2019 Patient encounter no information (no phone) [facility] procedure Center [facility] (no phone) 08-18-2019 Patient encounter no information OMAYRA ADAMS (no [facility] procedure phone) [facility] (no 08-18-2019 phone) 06-22-2019 Patient encounter no information no name (no phone) no organization name procedure (no phone) 05-07-2019 Patient encounter no information no name (no phone) no organization name procedure (no phone) 04-29-2019 Patient encounter no information no name (no phone) no organization name procedure (no phone) 04-29-2019 Patient encounter no information NAMRATA SCHULTZUGH [facility] procedure CALL CENTER RECRUITER (no phone) [facility] (no phone) 04-15-2019 Patient encounter no information NAMRATA SCHULTZUGH [facility] procedure CALL CENTER RECRUITER (no phone) [facility] (no phone) 03-10-2019 Patient encounter no information no name (no phone) no organization name procedure (no phone) 02-05-2019 Patient encounter no information no name (no phone) no organization name procedure (no phone) 09-11-2018 Patient encounter no information no name (no phone) no organization name procedure (no phone) 09-11-2018 Patient encounter no information no name (no phone) no organization name procedure (no phone) 09-09-2018 Patient encounter no information no name (no phone) no organization name procedure (no phone) 09-09-2018 Patient encounter no information FORREST Walker BAIMA 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 [facility] procedure (no phone) [facility] (no phone) 02-07-2018 Patient encounter no information FORREST Aaron BAIMA 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 WORKER [facility] procedure (no phone) [facility] (no phone) 08-07-2017 Patient encounter no information FORREST L BAIMA 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 WORKER [facility] procedure (no phone) [facility] (no phone) 04-16-2017 Patient encounter no information EMMANUEL MATHEW MA FSCA I [facility] procedure (no phone) [facility] (no phone) 04-08-2017 Patient encounter no information DENISE HILL MD ( no [facility] procedure phone) [facility] (no phone) 02-06-2017 Patient encounter no information FORRETS L BAIMA 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 WORKER [facility] procedure (no phone) [facility] (no phone) 12-15-2016 Patient encounter no information no name (no phone) no organization name procedure (no phone) 11-06-2016 Patient encounter no information EMMANUEL MATHEW MA FSCA I [facility] procedure (no phone) [facility] (no phone) 10-08-2016 Patient encounter no information FORREST L BAIMA 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 WORKER [facility] procedure (no phone) [facility] g (no phone) 10-02-2016 Patient encounter no information EMMANUEL MATHEW MA FSCA I [facility] - procedure (no phone) [facility] 10-04-2016 (no phone) Medical Equipment No Information Payers Normalized Payer Value Medicaid no information Self-pay no information History general Narrative - Reported Note Type Note Facility History general Narrative - Reported Type Medical Hyperlipidemia History Medical Myocardial Infarction (Hx 0 09/2016) 2 stents placed in RCA by DR MATHEW History Surgical Heart Cath 2016 History Surgical Cholecystectomy 1985 [id number] History general Narrative - Reported Note Type Note Facility History general Narrative - Reported Type Medical Hyperlipidemia History Medical Myocardial Infarction (Hx 0 09/2016) 2 stents placed in RCA by DR MATHEW History Surgical Heart Cath 2016 History Surgical Cholecystectomy 1984 History Surgical Left mastectomy 07/06/2019 History Hospitaliz [facility]17 [facility] Post-mastectomy 07/06-07/07 at [facility] ([id number]) Discharge Instructions Patient Instructions Physician Instructions New, Converted or Re-Newed RX: Transmitted to Pharmacy Patient Instructions: Echocardiogram next week as an outpatient Follow up appt next week with Dr. Mathew Care Plan Patient Instructions:: Echocardiogram next week as an outpatientFollow up appt next week with Dr. Mathew No hospital discharge instruction information available. Advance Directives Directive Response Recor ded Date/Time Advance Directives No 1:32pm Resuscitation Status Full Code 12/15/16 1:32pm Additional Source Comments This clinical document has been generated using [employer] software that has been certified by the Office of the National Coordinator for Health Information Technology (ONC 15.99.04.3023.Diam.[id number]) and the National Committee for Nuclear Plant Instrument Technician (NCQA, as an eMeasure certified technology). FOR RECORDS PERTAINING TO PATIENTS WHO ARE OR HAVE BEEN ENROLLED IN A CHEMICAL D EPENDENCY/SUBSTANCE ABUSE PROGRAM, SOME INFORMATION MAY BE OMITTED. This clinica l summary was aggregated from multiple sources. Caution should be exercised in using it in the provision of clinical care. This summary normalizes information from multiple sources, and as a consequence, information in this document may ma terially change the coding, format and clinical context of patient data. In omar tion, data may be omitted in some cases. CLINICAL DECISIONS SHOULD BE BASED ON T HE PRIMARY CLINICAL RECORDS. [employer] provides no warranty or guara ntee of the accuracy or completeness of information in this document.The followi ng information is based on time limited clinical information UNRECOGNIZED CONTENT PROVIDED BELOW FOR UNRECOGNIZED SECTION MEDICAL (GENERAL) HISTORY Type Description Date Medical History Hyperlipidemia Medical History Miocardial Infarctio n (Hx 09/2016) 2 stents placed in RCA by DR MATHEW Surgical History Heart Cath 2016 Surgical History Cholecystectomy 1985 Hospitalization History [facility] UNRECOGNIZED CONTENT PROVIDED BELOW FOR UNRECOGNIZED SECTION REASON FOR VISIT Refill requesteye examrefferalreferralDiabetes., Pt c/o Metformin is not working and it makes her short of breath when she takes it.-[id number]
--- OUTSIDE RECORDS SUMMARY | 2019-10-19 08:31 | XMS REPORT | Encounter Summary ---
Author Author [facility] Organization [facility] Address Unknown Phone Unavailable Care Team Providers Care Director Dental Services Name Role Phone PCP Unavailable Encounter Details Care Team Description Date Type Department 04/29/2019 [facility] [address] [address] Social History Date Tobacco Use [...] US BREAST BIOPSY EXTERNAL Routine 04/29/2019 IMAGING 12:05 PM CDT documented in this encounter Results * US BREAST BIOPSY EXTERNAL IMAGING (04/29/2019 12:05 PM CDT) Specimen Narrative Performed At This order has been auto finalized and does not contain a result. documented in this encounter Visit Diagnoses Not on filedocumented in this encounter
--- OUTSIDE RECORDS SUMMARY | 2019-10-19 08:31 | XMS REPORT | Encounter Summary ---
Author Author [facility] Organization [facility] Address Unknown Phone Unavailable Care Team Providers Care Hospital Administrative Assistant Name Role Phone PCP Unavailable Encounter Details Care Team Description Date Type Department 04/29/2019 [facility] [address] [address] Social History Date Tobacco Use [...] Name Priority Date/Time Associated Diag nosis MAMMO DIAG EXTERNAL Routine 04/29/2019 IMAGING 12:15 PM CDT documented in this encounter Results * MAMMO DIAG EXTERNAL IMAGING (04/29/2019 12:15 PM CDT) Specimen Narrative Performed At This order has been auto finalized and does not contain a result. documented in this encounter Visit Diagnoses Not on filedocumented in this encounter
--- OUTSIDE RECORDS SUMMARY | 2019-10-19 08:32 | XMS REPORT ---
Author Author Ximena HILL Organization [facility] [place] Address [address] [place] [address] Care Team Providers Care Network Operations Technician Name Role Phone DENISE HILL Unavailable PROBLEMS Type Condition ICD9-CM Code UTS35-MD Code Onset Dates Condition S tatus SNOMED Code Problem History of [place] (myocardial infarction) I25.2 Active 158964640 Problem Non-insulin dependent type 2 diabetes mellitus E11 [address] elevation myocardial infarction involving rig ht coronary artery I21.11 Active 065515504 Problem Tobacco abuse Z72.0 Active 757230 000 ALLERGIES No Information ENCOUNTERS Encounter Location Date Diagnosis [facility] [place] [id number] [place] [phone] Feb, Non-insulin dependent type 2 diabetes mellitus E11.9 ; History of [place] (myocardial infarction) I25.2 and Tobacco abuse Z72.0 [facility] [place] [address] [id number] [address] [place] [phone] Jan, [facility] [place] [address] [facility] [id number] [address] [place] [phone] Dec, [facility] [place] [address] [facility] [id number] [address] [place] [phone] Dec, [facility] [place] [address] [facility] [id number] [address] [place] [phone] Dec, [facility] [place] [address] [id number] [address] [place] [phone] Aug, Non-insulin dependent type 2 diabetes mellitus E11.9 ; Atypical chest pain R07.89 and Tobacco use Z72.0 [facility] [id number] [place] [id number] Aug, [facility] [place] [address] [facility] [id number] [address] [place] [phone] Jun, [facility] [place] [address] [facility] [id number] [address] [place] [phone] May, Non-insulin dependent type 2 diabetes mellitus E11.9 ; Tobacco abuse Z72.0 and History of [place] (myocardial infarction) I25.2 [facility] [place] [address] [id number] [address] [place] [phone] Mar, Dysphagia, unspecified type R13.10 ; Non-insulin dependent type 2 diabetes mellitus E11.9 and Tobacco abuse Z72.0 [facility] [place] [address] [facility] [id number] [address] [place] [phone] Feb, Non-insulin dependent type 2 diabetes mellitus E11.9 ; Dysphagia, unspecified type R13.10 and Tobacco abuse Z72.0 [facility] [place] [address] [facility] [id number] [address] [place] [phone] Feb, [facility] [place] [address] [facility] [id number] [address] [place] [phone] Jan, [facility] [place] [address] [facility] [id number] [address] [place] [phone] Dec, [facility] [place] [address] [facility] [id number] [address] [place] [phone] Oct, [facility] [place] [address] [facility] [id number] [address] [place] [phone] 16 Sep, 2016 ST elevation myocardial infa rction involving right coronary artery I21.11 ; Tobacco abuse Z72.0 and Non-insulin dependent type 2 diabetes mellitus E11.9 [facility] [place] [address] [facility] [id number] [address] [place] [phone] 14 Oct, 2014 [facility] [place] [address] [facility] [id number] [address] [place] [phone] 13 Oct, 2014 [facility] [place] [address] [facility] [id number] [address] [place] [phone] Feb, [facility] [address] [id number] [address] [place] [address], [place] [address] Feb, [facility] [address] [id number] [address] [place] [address], [place] [address] Jan, [facility] [address] [id number] [address] [place] [address], [place] [address] Jan, [facility] [address] [id number] [address] [place] [address], [place] [address] Jan, [facility] [address] [id number] [address] [place] [address], [place] [address] Jan, [facility] [address] [id number] [address] [place] [address], [place] [address] Aug, [facility] [address] [id number] [address] [place] [address], [place] [address] Aug, [facility] [address] [id number] [address] [place] [address], [place] [address] Jul, [facility] [address] [id number] [address] [place] [address], [place] [address] Jul, [facility] [address] [id number] [address] [place] [address], [place] [address] Jul, [facility] [address] [id number] [address] [place] [address], [place] [address] Jul, [facility] [address] [id number] [address] [place] [address], [place] [address] Dec, [facility] [address] [id number] [address] [place] [address], [place] [address] Dec, [facility] [address] [id number] [address] [place] [address], [place] [address] November, [facility] [address] [id number] [address] [place] [address], [place] [address] November, [facility] [address] [id number] [address] [place] [address], [place] [address] November, [facility] [address] [id number] [address] [place] [address], [place] [address] Sep, [facility] [address] [id number] [address] [place] [address], [place] [address] May, [facility] [address] [id number] [address] [place] [address], [place] [address] May, [facility] [address] [id number] [address] [place] [address], [place] [address] May, [facility] [address] [id number] [address] [place] [address], [place] [address] May, [facility] [address] [id number] [address] [place] [address], [place] [address] May, [facility] [address] [id number] [address] [place] [address], [place] [address] May, [facility] [address] [id number] [address] [place] [address], [place] [address] May, [facility] [address] [id number] [address] [place] [address], [place] [address] May, [facility] [address] [id number] [address] [place] [address], [place] [address] Apr, [facility] [address] [id number] [address] [place] [address], [place] [address] Apr, [facility] [address] [id number] [address] [place] [address], [place] [address] Feb, [facility] [address] [id number] [address] [place] [address], [place] [address] Feb, [facility] [address] [id number] [address] [place] [address], [place] [address] Dec, [facility] [address] [id number] [address] [place] [address], [place] [address] November, [facility] [place] [address] [id number] [address] [place] [phone] November, [facility] [place] [address] [id number] [address] [place] [phone] Oct, [facility] [place] [address] [id number] [address] [place] [phone] Aug, [facility] [place] [address] [id number] [address] [place] [phone] Aug, [facility] [place] [address] [id number] [address] [place] [phone] Jun, [facility] [place] [address] [id number] [address] [place] [phone] May, [facility] [place] [address] [id number] [address] [place] [phone] May, [facility] [place] [address] [id number] [address] [place] [phone] Jan, [facility] [place] [address] [id number] [address] [place] [phone] Oct, IMMUNIZATIONS No Known Immunizations SOCIAL HISTORY Never Assessed REASON FOR VISIT referral PLAN OF CARE VITAL SIGNS MEDICATIONS No Known Medications RESULTS No Results PROCEDURES No Known procedures INSTRUCTIONS MEDICATIONS ADMINISTERED No Known Medications MEDICAL (GENERAL) HISTORY Type Description Date Medical History Hyperlipidemia Medical History Miocardial Infarction (Hx ) 2 stents placed in RCA by DR MACHADO Surgical History Heart Cath 2017 Surgical History Cholecystectomy 1985 Hospitalization History Chest [facility] 09/15/17
--- OUTSIDE RECORDS SUMMARY | 2019-10-19 08:32 | XMS REPORT ---
Author Author Ximena HILL Organization [facility] Address [address] [place] [address] Care Team Providers Care Pasteurizing Machine Operator Name Role Phone DENISE HILL Unavailable PROBLEMS Type Condition ICD9-CM Code YYL59-XT Code Onset Dates Condition S tatus SNOMED Code Problem History of SD (myocardial infarction) I25.2 Active 208324262 Problem Non-insulin dependent type 2 diabetes mellitus E11 [address] elevation myocardial infarction involving rig ht coronary artery I21.11 Active 681178601 Problem Tobacco abuse Z72.0 Active 956685 000 ALLERGIES No Information ENCOUNTERS Encounter Location Date Diagnosis [facility] [address] [id number] [address] [place] [phone] Feb, Non-insulin dependent type 2 diabetes mellitus E11.9 ; History of SD (myocardial infarction) I25.2 and Tobacco abuse Z72.0 [facility] [address] [place] [id number] [address] [place] [phone] Jan, [facility] [address] [facility] [id number] [address] [place] [phone] Dec, [facility] [address] [facility] [id number] [address] [place] [phone] Dec, [facility] [address] [facility] [id number] [address] [place] [phone] Dec, [facility] [address] [place] [address] [id number] [address] [place] [phone] Aug, Non-insulin dependent type 2 diabetes mellitus E11.9 ; Atypical chest pain R07.89 and Tobacco use Z72.0 [facility] [place] [address] [place] [address] [id number] [place] [address] [id number] Aug, [facility] [address] [facility] [id number] [address] [place] [phone] Jun, [facility] [address] [facility] [id number] [address] [place] [id number] May, Non-insulin dependent type 2 diabetes mellitus E11.9 ; Tobacco abuse Z72.0 and History of SD (myocardial infarction) I25.2 [facility] [address] [id number] [address] [place] [address] Mar, Dysphagia, unspecified type R13.10 ; Non-insulin dependent type 2 diabetes mellitus E11.9 and Tobacco abuse Z72.0 [facility] [address] [facility] [id number] [address] [place] [phone] Feb, Non-insulin dependent type 2 diabetes mellitus E11.9 ; Dysphagia, unspecified type R13.10 and Tobacco abuse Z72.0 [facility] [address] [facility] [id number] [address] [place] [phone] Feb, [facility] [address] [facility] [id number] [address] [place] [phone] Jan, [facility] [address] [facility] [id number] [address] [place] [phone] Dec, [facility] [address] [facility] [id number] [address] [place] [phone] Oct, [facility] [address] [facility] [id number] [address] [place] [phone] 16 Sep, 2016 ST elevation myocardial infa rction involving right coronary artery I21.11 ; Tobacco abuse Z72.0 and Non-insulin dependent type 2 diabetes mellitus E11.9 [facility] [address] [facility] [id number] [address] [place] [phone] 14 Oct, 2014 [facility] [address] [facility] [id number] [address] [place] [phone] 13 Oct, 2014 [facility] [address] [facility] [id number] [address] [place] [phone] Feb, [facility] [address] [id number] [address] [place] [address], [place] [address] Feb, [facility] [address] [id number] [address] [place] [address], [place] [address] Jan, [facility] [address] [id number] [address] [place] [address], [place] [address] Jan, [facility] [address] [id number] [address] [place] [address], [place] [address] Jan, [facility] [address] [id number] [address] [place] [address], [place] [address] Jan, [facility] [address] [id number] [address] [place] [address], [place] [address] Aug, [facility] [address] [id number] [address] [place] [address], [place] [address] Aug, [facility] [address] [id number] [address] [place] [address], [place] [address] Jul, [facility] [address] [id number] [address] [place] [address], [place] [address] Jul, [facility] [address] [id number] [address] [place] [address], [place] [address] Jul, [facility] [address] [id number] [address] [place] [address], [place] [address] Jul, [facility] [address] [id number] [address] [place] [address], [place] [address] Dec, [facility] [address] [id number] [address] [place] [address], [place] [address] Dec, [facility] [address] [id number] [address] [place] [address], [place] [address] November, [facility] [address] [id number] [address] [place] [address], [place] [address] November, [facility] [address] [id number] [address] [place] [address], [place] [address] November, [facility] [address] [id number] [address] [place] [address], [place] [address] Sep, [facility] [address] [id number] [address] [place] [address], [place] [address] May, [facility] [address] [id number] [address] [place] [address], [place] [address] May, [facility] [address] [id number] [address] [place] [address], [place] [address] May, [facility] [address] [id number] [address] [place] [address], [place] [address] May, [facility] [address] [id number] [address] [place] [address], [place] [address] May, [facility] [address] [id number] [address] [place] [address], [place] [address] May, [facility] [address] [id number] [address] [place] [address], [place] [address] May, [facility] [address] [id number] [address] [place] [address], [place] [address] May, [facility] [address] [id number] [address] [place] [address], [place] [address] Apr, [facility] [address] [id number] [address] [place] [address], [place] [address] Apr, [facility] [address] [id number] [address] [place] [address], [place] [address] Feb, [facility] [address] [id number] [address] [place] [address], [place] [address] Feb, [facility] [address] [id number] [address] [place] [address], [place] [address] Dec, [facility] [address] [id number] [address] [place] [address], [place] [address] November, [facility] [address] [id number] [address] [place] [phone] November, [facility] [address] [id number] [address] [place] [phone] Oct, [facility] [address] [id number] [address] [place] [phone] Aug, [facility] [address] [id number] [address] [place] [phone] Aug, [facility] [address] [id number] [address] [place] [phone] Jun, [facility] [address] [id number] [address] [place] [address] May, [facility] [address] [id number] [address] [place] [phone] May, [facility] [address] [id number] [address] [place] [address] Jan, [facility] [address] [id number] [address] [place] [address] Oct, IMMUNIZATIONS No Known Immunizations SOCIAL HISTORY Never Assessed REASON FOR VISIT refferal PLAN OF CARE VITAL SIGNS MEDICATIONS No Known Medications RESULTS No Results PROCEDURES No Known procedures INSTRUCTIONS MEDICATIONS ADMINISTERED No Known Medications MEDICAL (GENERAL) HISTORY Type Description Date Medical History Hyperlipidemia Medical History Miocardial Infarction (Hx ) 2 stents placed in RCA by DR MACHADO Surgical History Heart Cath 2017 Surgical History Cholecystectomy 1985 Hospitalization History Chest pain-[facility] 09/15/17
--- OUTSIDE RECORDS SUMMARY | 2019-10-19 08:32 | XMS REPORT ---
Author Author Ximena Torres Doctor Organization [facility] Address Unknown Phone Unavailable Care Team Providers Care Flight Coordinator Name Role Phone Migration, Doctor Unavailable Unavailable PROBLEMS Type Condition ICD9-CM Code VIF03-CQ Code Onset Dates Condition S tatus SNOMED Code Problem History of [place] (myocardial infarction) I25.2 Active 628557729 Problem Post-menopausal bleeding N95.0 Activ e 82543697 Problem ST elevation myocardial infarction involving rig ht coronary artery I21.11 Active 702296369 Problem Non-insulin dependent type 2 diabetes mellitus E11 .9 Active 98518563 Problem Tobacco abuse Z72.0 Active 448777 000 ALLERGIES No Information ENCOUNTERS Encounter Location Date Diagnosis [place] [address] [facility] [place] [id number] [address] [place] [phone] Aug, [place] [address] [facility] [place] [id number] [address] [place] [phone] Aug, Post-menopausal bleeding N95 .0 [place] [address] [facility] [place] [id number] [address] [place] [phone] Aug, Non-insulin dependent type 2 diabetes mellitus E11.9 ; Tobacco abuse Z72.0 ; Post-menopausal bleeding N95.0 and History of OR (myocardial infarction) I25.2 [facility] [address] [facility] [place] [id number] [address] [place] [phone] Mar, [place] [address] [facility] [place] [id number] [address] [place] [phone] Feb, Non-insulin dependent type 2 diabetes mellitus E11.9 ; History of [place] (myocardial infarction) I25.2 and Tobacco abuse Z72.0 [facility] [address] [facility] [place] [id number] [address] [place] [phone] Jan, [place] [address] [facility] [place] [id number] [address] [place] [phone] Dec, [facility] [address] [facility] [place] [id number] [address] [place] [phone] Dec, [facility] [address] [facility] [place] [id number] [address] [place] [phone] Dec, [facility] [address] [facility] [place] [id number] [address] [place] [phone] Aug, Non-insulin dependent type 2 diabetes mellitus E11.9 ; Atypical chest pain R07.89 and Tobacco use Z72.0 [facility] [id number] [place] [id number] Aug, [facility] [address] [facility] [place] [id number] [address] [place] [phone] Jun, [facility] [address] [facility] [place] [id number] [address] [place] [phone] May, Non-insulin dependent type 2 diabetes mellitus E11.9 ; Tobacco abuse Z72.0 and History of OR (myocardial infarction) I25.2 [facility] [address] [facility] [place] [id number] [address] [place] [phone] Mar, Dysphagia, unspecified type R13.10 ; Non-insulin dependent type 2 diabetes mellitus E11.9 and Tobacco abuse Z72.0 [facility] [address] [facility] [place] [id number] [address] [place] [phone] Feb, Non-insulin dependent type 2 diabetes mellitus E11.9 ; Dysphagia, unspecified type R13.10 and Tobacco abuse Z72.0 [facility] [address] [facility] [place] [id number] [address] [place] [phone] Feb, [facility] [address] [facility] [place] [id number] [address] [place] [phone] Jan, [facility] [address] [facility] [place] [id number] [address] [place] [phone] Dec, [facility] [address] [facility] [place] [id number] [address] [place] [phone] Oct, [facility] [address] [id number] [address] [place] [phone] Sep, ST elevation myocardial infa rction involving right coronary artery I21.11 ; Tobacco abuse Z72.0 and Non-insulin dependent type 2 diabetes mellitus E11.9 [facility] [address] [id number] [address] [place] [address], [place] [address] 14 Oct, 2014 [facility] [address] [id number] [address] [place] [phone] Oct, [facility] [address] [id number] [address] [place] [phone] Feb, [facility] [address] [id number] [address] [place] [phone] Feb, [facility] [address] [id number] [address] [place] [phone] Jan, [facility] [address] [id number] [address] [place] [phone] Jan, [facility] [address] [id number] [address] [place] [phone] Jan, [facility] [address] [id number] [address] [place] [phone] Jan, [facility] [address] [id number] [address] [place] [phone] Aug, [facility] [address] [id number] [address] [place] [phone] Aug, [facility] [address] [id number] [address] [place] [phone] Jul, [facility] [address] [id number] [address] [place] [phone] Jul, [facility] [address] [id number] [address] [place] [phone] Jul, [facility] [address] [id number] [address] [place] [address], [place] [address] Jul, [facility] [address] [id number] [address] [place] [address], [place] [address] Dec, [facility] [address] [id number] [address] [place] [address], [place] [address] Dec, [facility] [address] [id number] [address] [place] [address], [place] [address] November, [facility] [address] [id number] [address] [place] [address], [place] [address] November, [facility] [address] [id number] [address] [place] [address], [place] [address] November, [facility] [address] [id number] [address] [place] [address], [place] [address] Sep, [facility] [address] [id number] [address] [place] [address], [place] [address] May, [facility] [address] [id number] [address] [place] [address], [place] [address] May, [facility] [address] [id number] [address] [place] [address], [place] [address] May, [facility] [address] [id number] [address] [place] [address], [place] [address] May, [facility] [address] [id number] [address] [place] [address], [place] [address] May, [facility] [address] [id number] [address] [place] [address], [place] [address] May, [facility] [address] [id number] [address] [place] [address], [place] [address] May, [facility] [address] [id number] [address] [place] [address], [place] [address] May, [facility] [address] [id number] [address] [place] [address], [place] [address] 10 Apr, 2012 [facility] [address] [id number] [address] [place] [phone] Apr, [facility] [address] [id number] [address] [place] [phone] Feb, [facility] [address] [id number] [address] [place] [phone] Feb, [facility] [address] [id number] [address] [place] [phone] Dec, [facility] [address] [id number] [address] [place] [phone] November, [facility] [address] [id number] [address] [place] [phone] November, [facility] [address] [id number] [address] [place] [phone] Oct, [facility] [address] [id number] [address] [place] [phone] Aug, [facility] [address] [id number] [address] [place] [phone] Aug, [facility] [address] [id number] [address] [place] [phone] Jun, [facility] [address] [id number] [address] [place] [phone] May, [facility] [address] [id number] [address] [place] [phone] May, [facility] [address] [id number] [address] [place] [phone] Jan, [facility] [address] [id number] [address] [place] [phone] Oct, IMMUNIZATIONS No Known Immunizations SOCIAL HISTORY Never Assessed REASON FOR VISIT EMR-[facility] PLAN OF CARE VITAL SIGNS MEDICATIONS Unknown Medications RESULTS No Results PROCEDURES No Known procedures INSTRUCTIONS MEDICATIONS ADMINISTERED No Known Medications MEDICAL (GENERAL) HISTORY Type Description Date Medical History Hyperlipidemia Medical History Miocardial Infarction (Hx ) 2 stents placed in RCA by DR MACHADO Surgical History Heart Cath 2016 Surgical History Cholecystectomy 1984 Hospitalization History Chest pain-[facility] 09/15/17
--- OUTSIDE RECORDS SUMMARY | 2019-10-19 08:32 | XMS REPORT ---
Author Author Ximena HILL Organization [facility] Address [address] [place] [address] Care Team Providers Care Optical Engineering Manager Name Role Phone DENISE HILL Unavailable PROBLEMS Type Condition ICD9-CM Code BUG39-GS Code Onset Dates Condition S tatus SNOMED Code Problem History of [place] (myocardial infarction) I25.2 Active 060881021 Problem Non-insulin dependent type 2 diabetes mellitus E11 [address] elevation myocardial infarction involving rig ht coronary artery I21.11 Active 239568303 Problem Tobacco abuse Z72.0 Active 964120 000 ALLERGIES Substance Reaction Event Type Date Status Tylenol chest pain Drug Allergy Feb, Active Metformin 750mg tablet pt states she felt SOA Non Drug Allergy 13 2017 Active Metformin 500 Mg Tablet pt states she felt groggy Non Drug Allergy Feb, Active ENCOUNTERS Encounter Location Date Diagnosis [facility] [address] [facility] [id number] [address] [place] [phone] Mar, [facility] [address] [facility] [id number] [address] [phone] Feb, Non-insulin dependent type 2 diabetes mellitus E11.9 ; History of SD (myocardial infarction) I25.2 and Tobacco abuse Z72.0 [facility] [address] [facility] [id number] [address] [place] [phone] Jan, [facility] [address] [facility] [id number] [address] [phone] Dec, [facility] [address] [facility] [id number] [address] [phone] Dec, [facility] [address] [facility] [id number] [address] [place] [phone] Dec, [place] [id number] [facility] [id number] [address] [place] [address] Aug, Non-insulin dependent type 2 diabetes mellitus E11.9 ; Atypical chest pain R07.89 and Tobacco use Z72.0 [facility] [address] [place] [id number] [place] [address] [id number] Aug, [place] [address] [facility] [id number] [address] [phone] Jun, [place] [address] [facility] [id number] [address] [place] [phone] May, Non-insulin dependent type 2 diabetes mellitus E11.9 ; Tobacco abuse Z72.0 and History of SD (myocardial infarction) I25.2 [place] [address] [facility] [id number] [address] [place] [address] Mar, Dysphagia, unspecified type R13.10 ; Non-insulin dependent type 2 diabetes mellitus E11.9 and Tobacco abuse Z72.0 [place] [address] [facility] [id number] [address] [place] [phone] Feb, Non-insulin dependent type 2 diabetes mellitus E11.9 ; Dysphagia, unspecified type R13.10 and Tobacco abuse Z72.0 [place] [address] [facility] [id number] [address] [place] [phone] Feb, [place] [address] [facility] [id number] [address] [phone] Jan, [place] [address] [facility] [id number] [address] [phone] Dec, [place] [address] [facility] [id number] [address] [phone] Oct, [place] [address] [facility] [id number] [address] [place] [phone] 16 Sep, 2016 ST elevation myocardial infa rction involving right coronary artery I21.11 ; Tobacco abuse Z72.0 and Non-insulin dependent type 2 diabetes mellitus E11.9 [facility] [address] [id number] [facility] [place] [address] Oct, [facility] [address] [id number] [address] [place] [address], [place] [address] Oct, [facility] [address] [id number] [address] [place] [address], [place] [address] Feb, [facility] [address] [id number] [address] [place] [address], [place] [address] Feb, [facility] [address] [id number] [address] [place] [address], [place] [address] Jan, [facility] [address] [id number] [address] [place] [address], [place] [address] Jan, [facility] [address] [id number] [address] [place] [address], [place] [address] Jan, [facility] [address] [id number] [address] [place] [address], [place] [address] Jan, [facility] [address] [id number] [address] [place] [address], [place] [address] Aug, [facility] [address] [id number] [address] [place] [address], [place] [address] Aug, [facility] [address] [id number] [address] [place] [address], [place] [address] Jul, [facility] [address] [id number] [address] [place] [address], [place] [address] Jul, [facility] [address] [id number] [address] [place] [address], [place] [address] Jul, [facility] [address] [id number] [address] [place] [address], [place] [address] Jul, [facility] [address] [id number] [address] [place] [address], [place] [address] Dec, [facility] [address] [id number] [address] [place] [address], [place] [address] Dec, [facility] [address] [id number] [address] [place] [address], [place] [address] November, [facility] [address] [id number] [address] [place] [address], [place] [address] November, [facility] [address] [id number] [address] [place] [address], [place] [address] November, [facility] [address] [id number] [address] [place] [address], [place] [address] Sep, [facility] [address] [id number] [address] [place] [address], [place] [address] May, [facility] [address] [id number] [address] [place] [address], [place] [address] May, [facility] [address] [id number] [address] [place] [address], [place] [address] May, [facility] [address] [id number] [address] [place] [address], [place] [address] May, [facility] [address] [id number] [address] [place] [address], [place] [address] May, [facility] [address] [id number] [address] [place] [address], [place] [address] May, [facility] [address] [id number] [address] [place] [address], [place] [address] May, [facility] [address] [id number] [address] [place] [address], [place] [address] May, [facility] [address] [id number] [address] [place] [address], [place] [address] Apr, [facility] [address] [id number] [address] [place] [address], [place] [address] Apr, [facility] [address] [id number] [address] [place] [address], [place] [address] Feb, [facility] [address] [id number] [address] [place] [phone] Feb, [facility] [address] [id number] [address] [place] [address] Dec, [facility] [address] [id number] [address] [place] [address] November, [facility] [address] [id number] [address] [phone] November, [facility] [address] [id number] [address] [address] Oct, [facility] [address] [id number] [address] [address] Aug, [facility] [address] [id number] [address] [phone] Aug, [facility] [address] [id number] [address] [address] Jun, [facility] [address] [id number] [address] [address] May, [facility] [address] [id number] [address] [address] May, [facility] [address] [facility] [id number] [address] [place] [address] Jan, [facility] [address] [facility] [id number] [address] [place] [address] Oct, IMMUNIZATIONS No Known Immunizations SOCIAL HISTORY Never Assessed REASON FOR VISIT Diabetes., Pt c/o Metformin is not working and it makes her short of breath when she takes it.-[facility] PLAN OF CARE Activity Details Follow Up 6 Months with Luis Godinez Reason: VITAL SIGNS Height 70 in 2018-03-10 Weight 197.4 lbs 2018-03-10 Temperature 98.1 degrees Fahrenheit 2018-03-10 Heart Rate 88 bpm 2018-03-10 Respiratory Rate 20 2018-03-10 BMI 28.32 kg/m2 2018-03-10 Blood pressure systolic 112 mmHg 2018-03-10 Blood pressure diastolic 72 mmHg 2018-03-10 MEDICATIONS Medication Instructions Dosage Frequency Start Date End Date Duration S shaina Aspirin 81 MG Orally Once a day 1 tablet 24h Active [place] 3 1000 MG Orally Once a day 2 capsule 24h Active Clopidogrel Bisulfate 75 MG Orally Once a day 1 tablet 24h Active Lisinopril 5 MG TAKE ONE-HALF TABLET BY MOUTH ONCE DAILY 30 Active Multivitamin Women - Act shady Atorvastatin Calcium 40 MG Orally Once a day 1/2 tablet 24h Active RESULTS Name Result Date Reference Range A1C (IN HOUSE) A1C IN HOUSE 8.1 4.3 - 5.6 % Previous A1c 7.4 Lot [id number] Exp date 09/2019 PROCEDURES Procedure Date Ordered Result Body Site GLYCATED HEMOGLOBIN TEST Mar 10, 2018 INSTRUCTIONS MEDICATIONS ADMINISTERED No Known Medications MEDICAL (GENERAL) HISTORY Type Description Date Medical History Hyperlipidemia Medical History Miocardial Infarction (Hx ) 2 stents placed in RCA by DR MACHADO Surgical History Heart Cath 2016 Surgical History Cholecystectomy 1985 Hospitalization History Chest pain-[facility] 09/15/17
--- OUTSIDE RECORDS SUMMARY | 2019-10-19 08:32 | XMS REPORT ---
Author Author Ximena HILL Organization [facility] Address [address] [place] [address] Care Team Providers Care Beater Out Name Role Phone DENISE HILL Unavailable PROBLEMS Type Condition ICD9-CM Code SQR05-UP Code Onset Dates Condition S tatus SNOMED Code Problem History of [place] (myocardial infarction) I25.2 Active 384932217 Problem Non-insulin dependent type 2 diabetes mellitus E11 [address] elevation myocardial infarction involving rig ht coronary artery I21.11 Active 802437973 Problem Tobacco abuse Z72.0 Active 094309 000 ALLERGIES Substance Reaction Event Type Date Status Tylenol chest pain Drug Allergy Aug, Active Metformin 500 Mg Tablet pt states she felt groggy Non Drug Allergy Aug, Active ENCOUNTERS Encounter Location Date Diagnosis [facility] [address] [facility] [facility] [id number] [address] [place] [address] Feb, Non-insulin dependent type 2 diabetes mellitus E11.9 ; History of [place] (myocardial infarction) I25.2 and Tobacco abuse Z72.0 [facility] [address] [facility] [address] [facility] [id number] [address] [place] [address] Jan, [facility] [address] [facility] [address] [facility] [id number] [address] [place] [address] Dec, [facility] [address] [address] [facility] [id number] [address] [place] [address] Dec, [facility] [address] [address] [facility] [id number] [address] [place] [address] Dec, [facility] [address] [address] [facility] [id number] [address] [place] [address] Aug, Non-insulin dependent type 2 diabetes mellitus E11.9 ; Atypical chest pain R07.89 and Tobacco use Z72.0 [facility] [address] [place] [id number] [place] [id number] Aug, [facility] [address] [address] [facility] [id number] [address] [place] [address] Jun, [facility] [address] [facility] [address] [facility] [id number] [address] [place] [address] May, Non-insulin dependent type 2 diabetes mellitus E11.9 ; Tobacco abuse Z72.0 and History of [place] (myocardial infarction) I25.2 [facility] [address] [id number] [address] [place] [address] Mar, Dysphagia, unspecified type R13.10 ; Non-insulin dependent type 2 diabetes mellitus E11.9 and Tobacco abuse Z72.0 [facility] [address] [address] [facility] [id number] [address] [place] [address] Feb, Non-insulin dependent type 2 diabetes mellitus E11.9 ; Dysphagia, unspecified type R13.10 and Tobacco abuse Z72.0 [facility] [address] [address] [facility] [id number] [address] [place] [address] Feb, [facility] [address] [address] [facility] [id number] [address] [place] [address] Jan, [facility] [address] [address] [facility] [id number] [address] [place] [address] Dec, [facility] [address] [address] [facility] [id number] [address] [place] [address] Oct, [facility] [address] [address] [facility] [id number] [address] [place] [address] Sep, ST elevation myocardial infa rction involving right coronary artery I21.11 ; Tobacco abuse Z72.0 and Non-insulin dependent type 2 diabetes mellitus E11.9 [facility] [address] [facility] [address] [facility] [id number] [address] [place] [address] Oct, [facility] [address] [facility] [address] [facility] [id number] [address] [place] [address] Oct, [facility] [address] [id number] [address] [place] [address], [place] [address] Feb, [facility] [address] [id number] [address] [place] [address], [place] [address] Feb, [facility] [address] [id number] [address] [place] [address], [place] [address] Jan, [facility] [address] [id number] [address] [place] [address], [place] [address] Jan, [facility] [address] [id number] [address] [place] [address], [place] [address] Jan, [facility] [address] [id number] [address] [place] [address], [place] [address] Jan, [facility] [address] [id number] [address] [place] [address], [place] [address] Aug, [facility] [address] [id number] [address] [place] [address], [place] [address] Aug, [facility] [address] [id number] [address] [place] [address], [place] [address] Jul, [facility] [address] [id number] [address] [place] [address], [place] [address] Jul, [facility] [address] [id number] [address] [place] [address], [place] [address] Jul, [facility] [address] [id number] [address] [place] [address], [place] [address] Jul, [facility] [address] [id number] [address] [place] [address], [place] [address] Dec, [facility] [address] [id number] [address] [place] [address], [place] [address] Dec, [facility] [address] [id number] [address] [place] [address], [place] [address] November, [facility] [address] [id number] [address] [place] [address], [place] [address] November, [facility] [address] [id number] [address] [place] [address], [place] [address] November, [facility] [address] [id number] [address] [place] [address], [place] [address] Sep, [facility] [address] [id number] [address] [place] [address], [place] [address] May, [facility] [address] [id number] [address] [place] [address], [place] [address] May, [facility] [address] [id number] [address] [place] [address], [place] [address] May, [facility] [address] [id number] [address] [place] [address], [place] [address] May, [facility] [address] [id number] [address] [place] [address], [place] [address] May, [facility] [address] [id number] [address] [place] [address], [place] [address] May, [facility] [address] [id number] [address] [place] [address], [place] [address] May, [facility] [address] [id number] [address] [place] [address], [place] [address] May, [facility] [address] [id number] [address] [place] [address], [place] [address] Apr, [facility] [address] [id number] [address] [place] [address], [place] [address] Apr, [facility] [address] [id number] [address] [place] [address], [place] [address] Feb, [facility] [address] [id number] [address] [place] [address], [place] [address] Feb, [facility] [address] [id number] [address] [place] [address], [place] [address] Dec, [facility] [address] [id number] [address] [place] [address] November, [facility] [address] [id number] [address] [place] [address] November, [facility] [address] [id number] [address] [place] [address] Oct, [facility] [address] [id number] [address] [place] [address] Aug, [facility] [address] [id number] [address] [place] [address] Aug, [facility] [address] [id number] [address] [place] [address] Jun, [facility] [address] [id number] [address] [place] [address] May, [facility] [address] [id number] [address] [place] [address] May, [facility] [address] [id number] [address] [place] [address] Jan, [facility] [address] [id number] [address] [place] [address] Oct, IMMUNIZATIONS No Known Immunizations SOCIAL HISTORY Never Assessed REASON FOR VISIT [facility] arnoldo garcia, Medication list confirmed via [facility] PLAN OF CARE Activity Details Follow Up 3 Months with Luis plascencia DM/C AD Reason: VITAL SIGNS Height 70 in 2017-09-24 Weight 198.0 lbs 2017-09-24 Temperature 97.6 degrees Fahrenheit 2017-09-24 Heart Rate 70 bpm 2017-09-24 Respiratory Rate 18 2017-09-24 BMI 28.41 kg/m2 2017-09-24 Blood pressure systolic 130 mmHg 2017-09-24 Blood pressure diastolic 70 mmHg 2017-09-24 MEDICATIONS Medication Instructions Dosage Frequency Start Date End Date Duration S tatus Multivitamin Women - Act shady [place] 3 1000 MG Orally Once a day 2 capsule 24h Active Atorvastatin Calcium 40 MG Orally Once a day 1/2 tablet 24h Active Clopidogrel Bisulfate 75 MG Orally Once a day 1 tablet 24h Active Aspirin 81 MG Orally Once a day 1 tablet 24h Active MetFORMIN HCl ER 750 MG Orally Once a day 1 tablet with evening heber l 24h Aug, 90 days Active Lisinopril 5 mg Orally Once a day 1/2 tablet 24h Active RESULTS Name Result Date Reference Range A1C (IN HOUSE) 2017-09-24 A1C IN HOUSE 7.4 4.3 - 5.6 % Previous A1c 7.0 Lot [id number] Exp date 05/2019 PROCEDURES Procedure Date Ordered Result Body Site GLYCATED HEMOGLOBIN TEST Sep 24, 2017 INSTRUCTIONS MEDICATIONS ADMINISTERED No Known Medications MEDICAL (GENERAL) HISTORY Type Description Date Medical History Hyperlipidemia Medical History Miocardial Infarction (Hx ) 2 stents placed in RCA by DR MACHADO Surgical History Heart Cath 2016 Surgical History Cholecystectomy 1985 Hospitalization History Chest pain-[facility] 09/15/17
--- OUTSIDE RECORDS SUMMARY | 2019-10-19 08:32 | XMS REPORT ---
Author Author Ximena Torres Doctor Organization [facility] Address Unknown Phone Unavailable Care Team Providers Care Air Intercept Controller Name Role Phone Migration, Doctor Unavailable Unavailable PROBLEMS Type Condition ICD9-CM Code FZM83-CS Code Onset Dates Condition S tatus SNOMED Code Problem History of [place] (myocardial infarction) I25.2 Active 895908234 Problem Post-menopausal bleeding N95.[address] 31128058 Problem [address] elevation myocardial infarction involving rig ht coronary artery I21.11 Active 121589588 Problem Non-insulin dependent type 2 diabetes mellitus E11 .9 Active 16519209 Problem Tobacco abuse Z72.0 Active 890391 000 ALLERGIES No Information ENCOUNTERS Encounter Location Date Diagnosis [place] [address] [address] [facility] [id number] [address] [place] [phone] Feb, [place] [address] [id number] [address] [place] [phone] Aug, [place] [address] [address] [facility] [id number] [address] [place] [phone] Aug, Post-menopausal bleeding N95 .0 [facility] [place] [address] [facility] [id number] [address] [place] [phone] Aug, Non-insulin dependent type 2 diabetes mellitus E11.9 ; Tobacco abuse Z72.0 ; Post-menopausal bleeding N95.0 and History of MN (myocardial infarction) I25.2 [facility] [place] [address] [id number] [address] [place] [phone] Mar, [place] [address] [address] [facility] [id number] [address] [place] [phone] Feb, Non-insulin dependent type 2 diabetes mellitus E11.9 ; History of [place] (myocardial infarction) I25.2 and Tobacco abuse Z72.0 [place] [address] [id number] [address] [place] [phone] Jan, [facility] [place] [address] [facility] [id number] [address] [place] [phone] Dec, [facility] [place] [address] [facility] [id number] [address] [place] [id number] Dec, [facility] [place] [address] [place] [id number] [place] [phone] Dec, [facility] [place] [address] [address] Aug, Non-insulin dependent type 2 diabetes mellitus E11.9 ; Atypical chest pain R07.89 and Tobacco use Z72.0 [facility] [address] [id number] Aug, [facility] [place] [address] [id number] Jun, [facility] [place] [address] [address] May, Non-insulin dependent type 2 diabetes mellitus E11.9 ; Tobacco abuse Z72.0 and History of [place] (myocardial infarction) I25.2 [facility] [place] [address] [place] [id number] [address] [place] [phone] Mar, Dysphagia, unspecified type R13.10 ; Non-insulin dependent type 2 diabetes mellitus E11.9 and Tobacco abuse Z72.0 [facility] [place] [address] [place] [id number] [address] [place] [phone] Feb, Non-insulin dependent type 2 diabetes mellitus E11.9 ; Dysphagia, unspecified type R13.10 and Tobacco abuse Z72.0 [facility] [place] [address] [place] [id number] [address] [place] [id number] Feb, [facility] [place] [address] [place] [id number] [address] [place] [phone] Jan, [facility] [place] [address] [place] [id number] [address] [place] [phone] Dec, [facility] [place] [address] [id number] [address] [place] [phone] Oct, [facility] [place] [address] [id number] [address] [place] [id number] Sep, ST elevation myocardial infa rction involving right coronary artery I21.11 ; Tobacco abuse Z72.0 and Non-insulin dependent type 2 diabetes mellitus E11.9 [facility] [place] [address] [id number] [address] [place] [id number] 14 Oct, 2014 [facility] [place] [address] [id number] [address] [place] [phone] Oct, [facility] [place] [address] [id number] [address] [place] [id number] Feb, [facility] [place] [address] [id number] [address] [place] [phone] Feb, [facility] [place] [address] [id number] [address] [place] [phone] Jan, [facility] [place] [address] [id number] [address] [place] [phone] Jan, [facility] [place] [address] [id number] [address] [place] [phone] Jan, [facility] [place] [address] [id number] [address] [place] [phone] Jan, [facility] [place] [address] [id number] [address] [place] [phone] Aug, [facility] [place] [address] [id number] [address] [place] [phone] Aug, [facility] [place] [address] [id number] [address] [place] [phone] Jul, [facility] [place] [address] [id number] [address] [place] [phone] Jul, [facility] [address] [id number] [address] [place] [address], [place] [id number] 07 Jul, 2013 [facility] [address] [id number] [address] [place] [address], [place] [address] Jul, [facility] [address] [id number] [address] [place] [address], [place] [address] Dec, [facility] [address] [id number] [address] [place] [address], [place] [address] Dec, [facility] [address] [id number] [address] [place] [address], [place] [address] November, [facility] [address] [id number] [address] [place] [address], [place] [address] November, [facility] [address] [id number] [address] [place] [address], [place] [address] November, [facility] [address] [id number] [address] [place] [address], [place] [address] Sep, [facility] [address] [id number] [address] [place] [address], [place] [address] May, [facility] [address] [id number] [address] [place] [address], [place] [address] May, [facility] [address] [id number] [address] [place] [address], [place] [address] May, [facility] [address] [id number] [address] [place] [address], [place] [address] May, [facility] [address] [id number] [address] [place] [address], [place] [address] May, [facility] [address] [id number] [address] [place] [address], [place] [address] May, [facility] [address] [id number] [address] [place] [address], [place] [address] May, [facility] [address] [id number] [address] [place] [address], [place] [address] May, [facility] [address] [id number] [address] [place] [address], [place] [address] 10 Apr, 2012 [facility] [address] [id number] [address] [place] [phone] Apr, [facility] [address] [id number] [address] [place] [phone] Feb, [facility] [address] [id number] [address] [place] [phone] Feb, [facility] [address] [id number] [address] [place] [phone] Dec, [facility] [address] [id number] [address] [place] [phone] November, [facility] [address] [id number] [address] [place] [phone] November, [facility] [address] [id number] [address] [place] [phone] Oct, [facility] [address] [id number] [address] [place] [phone] Aug, [facility] [address] [id number] [address] [place] [phone] Aug, [facility] [place] [address] [id number] [address] [place] [phone] Jun, [facility] [place] [address] [id number] [address] [place] [phone] May, [facility] [address] [id number] [address] [place] [phone] May, [facility] [address] [id number] [address] [place] [phone] 15 Jan, 2011 [facility] [address] [id number] [address] [place] [phone] 14 Oct, 2010 IMMUNIZATIONS No Known Immunizations [...] Surgical History Cholecystectomy 1985 Hospitalization History Chest pain-[facility] 09/15/17
--- OUTSIDE RECORDS SUMMARY | 2019-10-19 08:32 | XMS REPORT ---
Author Author Ximena HILL Organization [facility] Address [address] [place] [address] Care Team Providers Care It Quality Analyst Name Role Phone DENISE HILL Unavailable PROBLEMS Type Condition ICD9-CM Code CIK98-AG Code Onset Dates Condition S tatus SNOMED Code Problem History of [place] (myocardial infarction) I25.2 Active 368382002 Problem Non-insulin dependent type 2 diabetes mellitus E11 [address] elevation myocardial infarction involving rig ht coronary artery I21.11 Active 398599554 Problem Tobacco abuse Z72.0 Active 724426 000 ALLERGIES No Information ENCOUNTERS Encounter Location Date Diagnosis [facility] [address] [facility] [id number] [address] [place] [id number] Aug, Non-insulin dependent type 2 diabetes mellitus E11.9 and Atypical chest pain R07.89 [facility] [address] [place] [id number] [place] [id number] Aug, [facility] [address] [facility] [id number] [address] [place] [address] Jun, [facility] [address] [place] [id number] [address] [place] [address] May, Non-insulin dependent type 2 diabetes mellitus E11.9 ; Tobacco abuse Z72.0 and History of [place] (myocardial infarction) I25.2 [facility] [address] [facility] [id number] [address] [place] [id number] Mar, Dysphagia, unspecified type R13.10 ; Non-insulin dependent type 2 diabetes mellitus E11.9 and Tobacco abuse Z72.0 [facility] [address] [facility] [id number] [address] [place] [address] Feb, Non-insulin dependent type 2 diabetes mellitus E11.9 ; Dysphagia, unspecified type R13.10 and Tobacco abuse Z72.0 [facility] [address] [id number] [address] [place] [phone] Feb, [facility] [address] [id number] [address] [place] [phone] Jan, [facility] [address] [id number] [address] [place] [phone] Dec, [facility] [address] [id number] [address] [place] [address] Oct, [facility] [address] [id number] [address] [place] [address] Sep, ST elevation myocardial infa rction involving right coronary artery I21.11 ; Tobacco abuse Z72.0 and Non-insulin dependent type 2 diabetes mellitus E11.9 [facility] [address] [id number] [address] [place] [phone] Oct, [facility] [address] [id number] [address] [place] [phone] Oct, [facility] [address] [id number] [address] [place] [id number] Feb, [facility] [address] [id number] [address] [place] [phone] Feb, [facility] [address] [id number] [address] [place] [phone] Jan, [facility] [address] [id number] [address] [place] [phone] Jan, [facility] [address] [id number] [address] [place] [phone] Jan, [facility] [address] [id number] [address] [place] [phone] Jan, [facility] [address] [id number] [address] [place] [address] Aug, [facility] [address] [id number] [address] [place] [address], [place] [address] Aug, [facility] [address] [id number] [address] [place] [address], [place] [address] Jul, [facility] [address] [id number] [address] [place] [address], [place] [address] Jul, [facility] [address] [id number] [address] [place] [address], [place] [address] Jul, [facility] [address] [id number] [address] [place] [address], [place] [address] Jul, [facility] [address] [id number] [address] [place] [address], [place] [address] Dec, [facility] [address] [id number] [address] [place] [address], [place] [address] Dec, [facility] [address] [id number] [address] [place] [address], [place] [address] November, [facility] [address] [id number] [address] [place] [address], [place] [address] November, [facility] [address] [id number] [address] [place] [address], [place] [address] November, [facility] [address] [id number] [address] [place] [address], [place] [address] Sep, [facility] [address] [id number] [address] [place] [address], [place] [address] May, [facility] [address] [id number] [address] [place] [address], [place] [address] May, [facility] [address] [id number] [address] [place] [address], [place] [address] May, [facility] [address] [id number] [address] [place] [address], [place] [address] May, [facility] [address] [id number] [address] [place] [address], [place] [address] May, [facility] [address] [id number] [address] [place] [address], [place] [address] May, [facility] [address] [id number] [address] [place] [address], [place] [address] May, [facility] [address] [id number] [address] [place] [address], [place] [address] May, [facility] [address] [id number] [address] [place] [address], [place] [address] Apr, [facility] [address] [id number] [address] [place] [address], [place] [address] Apr, [facility] [address] [id number] [address] [place] [address], [place] [address] Feb, [facility] [address] [id number] [address] [place] [address], [place] [address] Feb, [facility] [address] [id number] [address] [place] [address], [place] [address] Dec, [facility] [address] [id number] [address] [place] [address], [place] [address] November, [facility] [address] [id number] [address] [place] [address], [place] [address] November, [facility] [address] [id number] [address] [place] [address], [place] [address] Oct, [facility] [address] [id number] [address] [place] [address], [place] [address] Aug, [facility] [address] [id number] [address] [place] [address], [place] [address] Aug, [facility] [address] [id number] [address] [place] [address], [place] [address] Jun, [facility] [address] [id number] [address] [place] [address], [place] [address] May, [facility] [address] [facility] [id number] [address] [place] [address] May, [facility] [address] [facility] [id number] [address] [place] [address] Jan, [facility] [address] [facility] [id number] [address] [place] [address] Oct, IMMUNIZATIONS No Known Immunizations SOCIAL HISTORY Never Assessed REASON FOR VISIT Refill request PLAN OF CARE VITAL SIGNS MEDICATIONS No Known Medications RESULTS No Results PROCEDURES No Known procedures INSTRUCTIONS MEDICATIONS ADMINISTERED No Known Medications MEDICAL (GENERAL) HISTORY Type Description Date Medical History Hyperlipidemia Medical History Miocardial Infarction (Hx ) 2 stents placed in RCA by DR MACHADO Surgical History Heart Cath 2016 Surgical History Cholecystectomy 1985 Hospitalization History [facility] 09/15/17
--- OUTSIDE RECORDS SUMMARY | 2019-10-19 08:32 | XMS REPORT ---
Author Author Ximena Torres Doctor Organization [facility] Address Unknown Phone Unavailable Care Team Providers Care Facility Worker Name Role Phone Migration, Doctor Unavailable Unavailable PROBLEMS Type Condition ICD9-CM Code [id number] Code Onset Dates Condition S tatus SNOMED Code Problem History of [place] (myocardial infarction) I25.2 Active 037752878 Problem Post-menopausal bleeding N95.0 Activ e 40920549 Problem ST elevation myocardial infarction involving rig ht coronary artery I21.11 Active 878015295 Problem Non-insulin dependent type 2 diabetes mellitus E11 .9 Active 96601716 Problem Tobacco abuse Z72.0 Active 745168 000 ALLERGIES Substance Reaction Event Type Date Status Lisinopril 5 Mg Tablet Unknown Non Drug Allergy Oct, A ctive Metformin 500 Mg Tablet pt states she felt groggy Non Drug Allergy Oct, Active ENCOUNTERS Encounter Location Date Diagnosis [place] [address] [place] [id number] [address] [place] [address] Aug, [place] [address] [place] [id number] [address] [place] [address] Aug, Post-menopausal bleeding N95 .0 [place] [address] [facility] [id number] [address] [place] [address] Aug, Non-insulin dependent type 2 diabetes mellitus E11.9 ; Tobacco abuse Z72.0 ; Post-menopausal bleeding N95.0 and History of [place] (myocardial infarction) I25.2 [place] [address] [facility] [id number] [address] [place] [address] Mar, [place] [address] [place] [id number] [address] [place] [address] Feb, Non-insulin dependent type 2 diabetes mellitus E11.9 ; History of [place] (myocardial infarction) I25.2 and Tobacco abuse Z72.0 [place] [address] [place] [id number] [address] [place] [address] Jan, [facility] [address] [facility] [id number] [address] [place] [address] Dec, [facility] [address] [facility] [id number] [address] [place] [address] Dec, [facility] [address] [place] [id number] [address] [place] [address] Dec, [facility] [address] [facility] [id number] [address] [place] [address] Aug, Non-insulin dependent type 2 diabetes mellitus E11.9 ; Atypical chest pain R07.89 and Tobacco use Z72.0 [facility] [address] [place] [id number] [place] [id number] Aug, [facility] [address] [place] [id number] [place] [address] Jun, [facility] [address] [place] [id number] [address] [place] [address] May, Non-insulin dependent type 2 diabetes mellitus E11.9 ; Tobacco abuse Z72.0 and History of [place] (myocardial infarction) I25.2 [facility] [address] [place] [id number] [address] [place] [address] Mar, Dysphagia, unspecified type R13.10 ; Non-insulin dependent type 2 diabetes mellitus E11.9 and Tobacco abuse Z72.0 [facility] [address] [facility] [id number] [address] [place] [address] Feb, Non-insulin dependent type 2 diabetes mellitus E11.9 ; Dysphagia, unspecified type R13.10 and Tobacco abuse Z72.0 [facility] [address] [facility] [id number] [address] [place] [address] Feb, [facility] [address] [facility] [id number] [address] [place] [address] Jan, [facility] [address] [id number] [address] [place] [address], [place] [address] 08 Dec, 2016 [facility] [address] [id number] [address] [place] [address], [place] [address] Oct, [facility] [address] [id number] [address] [place] [address], [place] [address] 16 Sep, 2016 ST elevation myocardial infa rction involving right coronary artery I21.11 ; Tobacco abuse Z72.0 and Non-insulin dependent type 2 diabetes mellitus E11.9 [facility] [address] [id number] [address] [place] [address], [place] [address] 14 Oct, 2014 [facility] [address] [id number] [address] [place] [address], [place] [address] Oct, [facility] [address] [id number] [address] [place] [address], [place] [address] Feb, [facility] [address] [id number] [address] [place] [address], [place] [address] Feb, [facility] [address] [id number] [address] [place] [address], [place] [address] Jan, [facility] [address] [id number] [address] [place] [address], [place] [address] Jan, [facility] [address] [id number] [address] [place] [address], [place] [address] Jan, [facility] [address] [id number] [address] [place] [address], [place] [address] Jan, [facility] [address] [id number] [address] [place] [address], [place] [address] Aug, [facility] [address] [id number] [address] [place] [address], [place] [address] Aug, [facility] [address] [id number] [address] [place] [address], [place] [address] Jul, [facility] [address] [id number] [address] [place] [address] Jul, [facility] [address] [id number] [address] [place] [address], [place] [address] Jul, [facility] [address] [id number] [address] [place] [address], [place] [address] Jul, [facility] [address] [id number] [address] [place] [address], [place] [address] 05 Dec, 2012 [facility] [address] [id number] [address] [place] [address], [place] [address] Dec, [facility] [address] [id number] [address] [place] [address], [place] [address] November, [facility] [address] [id number] [address] [place] [address], [place] [address] November, [facility] [address] [id number] [address] [place] [address], [place] [address] November, [facility] [address] [id number] [address] [place] [address], [place] [address] Sep, [facility] [address] [id number] [address] [place] [address], [place] [address] May, [facility] [address] [id number] [address] [place] [address], [place] [address] May, [facility] [address] [id number] [address] [place] [address], [place] [address] May, [facility] [address] [id number] [address] [place] [address], [place] [address] May, [facility] [address] [id number] [address] [place] [address], [place] [address] May, [facility] [address] [id number] [address] [place] [address], [place] [address] May, [facility] [address] [id number] [address] [place] [address], [place] [address] May, [facility] [address] [id number] [address] [place] [address], [place] [address] 05 May, 2012 [facility] [address] [id number] [address] [place] [address], [place] [address] 10 Apr, 2012 [facility] [address] [id number] [address] [place] [address], [place] [address] 10 Apr, 2012 [facility] [address] [id number] [address] [place] [address], [place] [address] Feb, [facility] [address] [id number] [address] [place] [address], [place] [address] Feb, [facility] [address] [id number] [address] [place] [address], [place] [address] Dec, [facility] [address] [id number] [address] [place] [address], [place] [address] November, [facility] [address] [id number] [address] [place] [address], [place] [address] November, [facility] [address] [id number] [address] [place] [address], [place] [address] Oct, [facility] [address] [id number] [address] [place] [address], [place] [address] 10 Aug, 2011 [facility] [address] [id number] [address] [place] [address], [place] [address] Aug, [facility] [address] [id number] [address] [place] [address], [place] [address] Jun, [facility] [address] [id number] [address] [place] [address], [place] [address] [address] May, [address] [facility] [address] [id number] [address] [place] [address], [place] [address] 04 May, 2011 [facility] [address] [id number] [address] [place] [address], [place] [address] [address] Jan, [address] [facility] [address] [id number] [address] [place] [address] Oct, IMMUNIZATIONS No Known Immunizations SOCIAL HISTORY Never Assessed REASON FOR VISIT [facility] PLAN OF CARE VITAL SIGNS MEDICATIONS Medication Instructions Dosage Frequency Start Date End Date Duration S tatus Augmentin 875-125 mg 1 tablet by Oral route 2 times pe r day for 10 day(s) November, Active Bactrim DS 800-160 mg 1 tablet by Oral route 2 times p er day for 10 day(s) Dec, Active Ciprodex 0.3-0.1 % 3 drop by Otic route 2 times per da y for 7 day(s) November, Active MethylPREDNISolone 4 mg by Oral route ev zak day for 6 days as directed per dose pack November, Active Cipro 500 mg 1 tablet by Oral route every 12 hours for 10 day(s) Feb, Active RESULTS No Results PROCEDURES No Known procedures INSTRUCTIONS MEDICATIONS ADMINISTERED No Known Medications MEDICAL (GENERAL) HISTORY Type Description Date Medical History Hyperlipidemia Medical History Miocardial Infarction (Hx ) 2 stents placed in RCA by DR MACHADO Surgical History Heart Cath 2016 Surgical History Cholecystectomy 1985 Hospitalization History Chest pain-[facility] 09/15/17
--- OUTSIDE RECORDS SUMMARY | 2019-10-19 08:32 | XMS REPORT ---
Author Author Ximena HILL Organization [facility] Address [address] [place] [address] Care Team Providers Care Drafter Refrigeration Name Role Phone DENISE HILL Unavailable PROBLEMS Type Condition ICD9-CM Code VLI12-FL Code Onset Dates Condition S tatus SNOMED Code Problem History of [place] (myocardial infarction) I25.2 Active 826820259 Problem Non-insulin dependent type 2 diabetes mellitus E11 [address] elevation myocardial infarction involving rig ht coronary artery I21.11 Active 340991550 Problem Tobacco abuse Z72.0 Active 716218 000 ALLERGIES No Information ENCOUNTERS Encounter Location Date Diagnosis [facility] [address] [place] [id number] [address] [place] [address] Feb, Non-insulin dependent type 2 diabetes mellitus E11.9 ; History of [place] (myocardial infarction) I25.2 and Tobacco abuse Z72.0 [facility] [address] [place] [id number] [address] [place] [address] Jan, [facility] [address] [facility] [id number] [address] [place] [address] Dec, [facility] [address] [facility] [id number] [address] [place] [address] Dec, [facility] [address] [facility] [id number] [address] [place] [address] Dec, [facility] [address] [place] [id number] [address] [place] [address] Aug, Non-insulin dependent type 2 diabetes mellitus E11.9 ; Atypical chest pain R07.89 and Tobacco use Z72.0 [facility] [address] [place] [id number] [place] [id number] Aug, [facility] [address] [facility] [id number] [address] [place] [address] Jun, [facility] [address] [facility] [id number] [address] [place] [address] May, Non-insulin dependent type 2 diabetes mellitus E11.9 ; Tobacco abuse Z72.0 and History of [place] (myocardial infarction) I25.2 [facility] [address] [id number] [address] [place] [address] Mar, Dysphagia, unspecified type R13.10 ; Non-insulin dependent type 2 diabetes mellitus E11.9 and Tobacco abuse Z72.0 [facility] [address] [facility] [id number] [address] [place] [address] Feb, Non-insulin dependent type 2 diabetes mellitus E11.9 ; Dysphagia, unspecified type R13.10 and Tobacco abuse Z72.0 [facility] [address] [facility] [id number] [address] [place] [address] Feb, [facility] [address] [facility] [id number] [address] [place] [address] Jan, [facility] [address] [facility] [id number] [address] [place] [address] Dec, [facility] [address] [facility] [id number] [address] [place] [address] Oct, [facility] [address] [facility] [id number] [address] [place] [address] 16 Sep, 2016 ST elevation myocardial infa rction involving right coronary artery I21.11 ; Tobacco abuse Z72.0 and Non-insulin dependent type 2 diabetes mellitus E11.9 [facility] [address] [facility] [id number] [address] [place] [address] 14 Oct, 2014 [facility] [address] [facility] [id number] [address] [place] [address] 13 Oct, 2014 [facility] [address] [facility] [id number] [address] [place] [address] Feb, [facility] [address] [id number] [address] [place] [address], [place] [address] Feb, [facility] [address] [id number] [address] [place] [address], [place] [address] Jan, [facility] [address] [id number] [address] [place] [address], [place] [address] Jan, [facility] [address] [id number] [address] [place] [address], [place] [address] Jan, [facility] [address] [id number] [address] [place] [address], [place] [address] Jan, [facility] [address] [id number] [address] [place] [address], [place] [address] Aug, [facility] [address] [id number] [address] [place] [address], [place] [address] Aug, [facility] [address] [id number] [address] [place] [address], [place] [address] Jul, [facility] [address] [id number] [address] [place] [address], [place] [address] Jul, [facility] [address] [id number] [address] [place] [address], [place] [address] Jul, [facility] [address] [id number] [address] [place] [address], [place] [address] Jul, [facility] [address] [id number] [address] [place] [address], [place] [address] Dec, [facility] [address] [id number] [address] [place] [address], [place] [address] Dec, [facility] [address] [id number] [address] [place] [address], [place] [address] November, [facility] [address] [id number] [address] [place] [address], [place] [address] November, [facility] [address] [id number] [address] [place] [address], [place] [address] November, [facility] [address] [id number] [address] [place] [address], [place] [address] Sep, [facility] [address] [id number] [address] [place] [address], [place] [address] May, [facility] [address] [id number] [address] [place] [address], [place] [address] May, [facility] [address] [id number] [address] [place] [address], [place] [address] May, [facility] [address] [id number] [address] [place] [address], [place] [address] May, [facility] [address] [id number] [address] [place] [address], [place] [address] May, [facility] [address] [id number] [address] [place] [address], [place] [address] May, [facility] [address] [id number] [address] [place] [address], [place] [address] May, [facility] [address] [id number] [address] [place] [address], [place] [address] May, [facility] [address] [id number] [address] [place] [address], [place] [address] Apr, [facility] [address] [id number] [address] [place] [address], [place] [address] Apr, [facility] [address] [id number] [address] [place] [address], [place] [address] Feb, [facility] [address] [id number] [address] [place] [address], [place] [address] Feb, [facility] [address] [id number] [address] [place] [address], [place] [address] Dec, [facility] [address] [id number] [address] [place] [address], [place] [address] November, [facility] [address] [id number] [address] [place] [address] November, [facility] [address] [id number] [address] [place] [address] Oct, [facility] [address] [id number] [address] [place] [address] Aug, [facility] [address] [id number] [address] [place] [address] Aug, [facility] [address] [id number] [address] [place] [address] Jun, [facility] [address] [id number] [address] [place] [address] May, [facility] [address] [id number] [address] [place] [address] May, [facility] [address] [id number] [address] [place] [address] Jan, [facility] [address] [id number] [address] [place] [address] Oct, IMMUNIZATIONS No Known Immunizations SOCIAL HISTORY Never Assessed REASON FOR VISIT eye exam PLAN OF CARE VITAL SIGNS MEDICATIONS No Known Medications RESULTS No Results PROCEDURES No Known procedures INSTRUCTIONS MEDICATIONS ADMINISTERED No Known Medications MEDICAL (GENERAL) HISTORY Type Description Date Medical History Hyperlipidemia Medical History Miocardial Infarction (Hx ) 2 stents placed in RCA by DR MACHADO Surgical History Heart Cath 2017 Surgical History Cholecystectomy 1985 Hospitalization History Chest pain-[facility] 09/15/17
--- OUTSIDE RECORDS SUMMARY | 2019-10-19 08:32 | XMS REPORT ---
Author Author Ximena HILL Organization [facility] Address [address] [place] [address] Care Team Providers Care Pediatric Speech Therapist Name Role Phone DENISE HILL Unavailable PROBLEMS Type Condition ICD9-CM Code UIS69-BB Code Onset Dates Condition S tatus SNOMED Code Problem History of [place] (myocardial infarction) I25.2 Active 602692501 Problem Non-insulin dependent type 2 diabetes mellitus E11 [address] elevation myocardial infarction involving rig ht coronary artery I21.11 Active 872022642 Problem Tobacco abuse Z72.0 Active 350441 000 ALLERGIES No Information ENCOUNTERS Encounter Location Date Diagnosis [facility] [address] [id number] [address] [place] [phone] Feb, Non-insulin dependent type 2 diabetes mellitus E11.9 ; History of [place] (myocardial infarction) I25.2 and Tobacco abuse Z72.0 [facility] [address] [id number] [address] [place] [phone] Jan, [facility] [address] [facility] [id number] [address] [place] [phone] Dec, [facility] [address] [facility] [id number] [address] [place] [phone] Dec, [facility] [address] [facility] [id number] [address] [place] [phone] Dec, [facility] [address] [id number] [address] [place] [address] Aug, Non-insulin dependent type 2 diabetes mellitus E11.9 ; Atypical chest pain R07.89 and Tobacco use Z72.0 [facility] [id number] [place] [id number] Aug, [facility] [address] [facility] [id number] [address] [place] [phone] Jun, [facility] [address] [facility] [id number] [address] [place] [address] May, Non-insulin dependent type 2 diabetes mellitus E11.9 ; Tobacco abuse Z72.0 and History of [place] (myocardial infarction) I25.2 [facility] [address] [id number] [address] [place] [address] Mar, Dysphagia, unspecified type R13.10 ; Non-insulin dependent type 2 diabetes mellitus E11.9 and Tobacco abuse Z72.0 [facility] [address] [facility] [id number] [address] [place] [phone] Feb, Non-insulin dependent type 2 diabetes mellitus E11.9 ; Dysphagia, unspecified type R13.10 and Tobacco abuse Z72.0 [facility] [address] [facility] [id number] [address] [place] [phone] Feb, [facility] [address] [facility] [id number] [address] [place] [phone] Jan, [facility] [address] [facility] [id number] [address] [place] [address] Dec, [facility] [address] [facility] [id number] [address] [place] [phone] Oct, [facility] [address] [facility] [id number] [address] [place] [phone] 16 Sep, 2016 ST elevation myocardial infa rction involving right coronary artery I21.11 ; Tobacco abuse Z72.0 and Non-insulin dependent type 2 diabetes mellitus E11.9 [facility] [address] [facility] [id number] [address] [place] [id number] 14 Oct, 2014 [facility] [address] [facility] [id number] [address] [place] [phone] 13 Oct, 2014 [facility] [address] [facility] [id number] [address] [place] [address] Feb, [facility] [address] [id number] [address] [place] [address], [place] [address] Feb, [facility] [address] [id number] [address] [place] [address], [place] [address] Jan, [facility] [address] [id number] [address] [place] [address], [place] [address] Jan, [facility] [address] [id number] [address] [place] [address], [place] [address] Jan, [facility] [address] [id number] [address] [place] [address], [place] [phone] Jan, [facility] [address] [id number] [address] [place] [address], [place] [address] Aug, [facility] [address] [id number] [address] [place] [address], [place] [address] Aug, [facility] [address] [id number] [address] [place] [address], [place] [address] Jul, [facility] [address] [id number] [address] [place] [address], [place] [address] Jul, [facility] [address] [id number] [address] [place] [address], [place] [address] Jul, [facility] [address] [id number] [address] [place] [address], [place] [address] Jul, [facility] [address] [id number] [address] [place] [address], [place] [address] Dec, [facility] [address] [id number] [address] [place] [address], [place] [address] Dec, [facility] [address] [id number] [address] [place] [address], [place] [address] November, [facility] [address] [id number] [address] [place] [address], [place] [address] November, [facility] [address] [id number] [address] [place] [address], [place] [address] November, [facility] [address] [id number] [address] [place] [address], [place] [address] Sep, [facility] [address] [id number] [address] [place] [address], [place] [address] May, [facility] [address] [id number] [address] [place] [address], [place] [phone] May, [facility] [address] [id number] [address] [place] [address], [place] [address] May, [facility] [address] [id number] [address] [place] [address], [place] [address] May, [facility] [address] [id number] [address] [place] [address], [place] [address] May, [facility] [address] [id number] [address] [place] [address], [place] [address] May, [facility] [address] [id number] [address] [place] [address], [place] [address] May, [facility] [address] [id number] [address] [place] [address], [place] [address] May, [facility] [address] [id number] [address] [place] [address], [place] [phone] Apr, [facility] [address] [id number] [address] [place] [address], [place] [address] Apr, [facility] [address] [id number] [address] [place] [address], [place] [address] Feb, [facility] [address] [id number] [address] [place] [address], [place] [address] Feb, [facility] [address] [id number] [address] [place] [address], [place] [address] Dec, [facility] [address] [id number] [address] [place] [address], [place] [address] November, [facility] [address] [id number] [address] [place] [phone] November, [facility] [address] [id number] [address] [place] [phone] Oct, [facility] [address] [id number] [address] [place] [address] Aug, [facility] [address] [id number] [address] [place] [phone] Aug, [facility] [address] [id number] [address] [place] [phone] Jun, [facility] [address] [id number] [address] [place] [phone] May, [facility] [address] [id number] [address] [place] [phone] May, [facility] [address] [id number] [address] [place] [phone] Jan, [facility] [address] [id number] [address] [place] [phone] Oct, IMMUNIZATIONS No Known Immunizations SOCIAL HISTORY [...] Surgical History Cholecystectomy 1985 Hospitalization History Chest pain-[facility] 09/15/17
--- OUTSIDE RECORDS SUMMARY | 2019-10-19 08:32 | XMS REPORT ---
Author Author Ximena HILL Organization [facility] Address [address] [place] [address] Care Team Providers Care Wad Compressor Operator Adjuster Name Role Phone DENISE HILL Unavailable PROBLEMS Type Condition ICD9-CM Code ERW34-GO Code Onset Dates Condition S tatus SNOMED Code Problem History of CT (myocardial infarction) I25.2 Active 503853618 Problem Non-insulin dependent type 2 diabetes mellitus E11 [address] elevation myocardial infarction involving rig ht coronary artery I21.11 Active 840747174 Problem Tobacco abuse Z72.0 Active 064479 000 ALLERGIES No Information ENCOUNTERS Encounter Location Date Diagnosis [facility] [address] [facility] [id number] [address] [place] [id number] Mar, [facility] [address] [facility] [id number] [address] [place] [address] Feb, Non-insulin dependent type 2 diabetes mellitus E11.9 ; History of CT (myocardial infarction) I25.2 and Tobacco abuse Z72.0 [facility] [address] [facility] [id number] [address] [place] [address] Jan, [facility] [address] [id number] [address] [place] [address] Dec, [facility] [address] [id number] [address] [place] [phone] Dec, [facility] [address] [facility] [id number] [address] [place] [address] Dec, [facility] [address] [facility] [id number] [address] [place] [address] Aug, Non-insulin dependent type 2 diabetes mellitus E11.9 ; Atypical chest pain R07.[address] [facility] [address] [id number] [place] [id number] Aug, [facility] [address] [facility] [id number] [address] [place] [address] Jun, [facility] [address] [facility] [id number] [address] [place] [address] May, Non-insulin dependent type 2 diabetes mellitus E11.9 ; Tobacco abuse Z72.[address] (myocardial infarction) I25.2 [facility] [address] [id number] [address] [place] [phone] Mar, Dysphagia, unspecified type R13.10 ; Non-insulin dependent type 2 diabetes mellitus E11.9 and Tobacco abuse Z72.0 [facility] [address] [facility] [id number] [address] [place] [address] Feb, Non-insulin dependent type 2 diabetes mellitus E11.9 ; Dysphagia, unspecified type R13.10 and Tobacco abuse Z72.0 [facility] [address] [facility] [id number] [address] [place] [phone] Feb, [facility] [address] [facility] [id number] [address] [place] [phone] Jan, [facility] [address] [facility] [id number] [address] [place] [phone] Dec, [facility] [address] [facility] [id number] [address] [place] [address] Oct, [facility] [address] [facility] [id number] [address] [place] [phone] 16 Sep, 2016 ST elevation myocardial infa rction involving right coronary artery I21.11 ; Tobacco abuse Z72.0 and Non-insulin dependent type [address] [facility] [address] [facility] [id number] [address] [place] [phone] [address] Oct, 2014 [facility] [address] [facility] [id number] [address] [place] [address] Oct, [facility] [address] [id number] [address] [place] [address], [place] [address] Feb, [facility] [address] [id number] [address] [place] [address], [place] [address] Feb, [facility] [address] [id number] [address] [place] [address], [place] [address] Jan, [facility] [address] [id number] [address] [place] [address], [place] [address] Jan, [facility] [address] [id number] [address] [place] [address], [place] [address] Jan, [facility] [address] [id number] [address] [place] [address], [place] [address] Jan, [facility] [address] [id number] [address] [place] [address], [place] [address] Aug, [facility] [address] [id number] [address] [place] [address], [place] [address] Aug, [facility] [address] [id number] [address] [place] [address], [place] [address] Jul, [facility] [address] [id number] [address] [place] [address], [place] [address] Jul, [facility] [address] [id number] [address] [place] [address], [place] [address] Jul, [facility] [address] [id number] [address] [place] [address], [place] [address] Jul, [facility] [address] [id number] [address] [place] [address], [place] [address] Dec, [facility] [address] [id number] [address] [place] [address], [place] [address] Dec, [facility] [address] [id number] [address] [place] [address], [place] [address] November, [facility] [address] [id number] [address] [place] [address], [place] [address] November, [facility] [address] [id number] [address] [place] [address], [place] [address] November, [facility] [address] [id number] [address] [place] [address], [place] [address] Sep, [facility] [address] [id number] [address] [place] [address], [place] [address] May, [facility] [address] [id number] [address] [place] [address], [place] [address] May, [facility] [address] [id number] [address] [place] [address], [place] [address] May, [facility] [address] [id number] [address] [place] [address], [place] [address] May, [facility] [address] [id number] [address] [place] [address], [place] [address] May, [facility] [address] [id number] [address] [place] [address], [place] [address] May, [facility] [address] [id number] [address] [place] [address], [place] [address] May, [facility] [address] [id number] [address] [place] [address], [place] [address] May, [facility] [address] [id number] [address] [place] [address], [place] [address] Apr, [facility] [address] [id number] [address] [place] [address], [place] [address] Apr, [facility] [address] [id number] [address] [place] [address], [place] [address] Feb, [facility] [address] [id number] [address] [place] [address], [place] [address] Feb, [facility] [address] [id number] [address] [place] [address], [place] [address] Dec, [facility] [address] [id number] [address] [place] [address] November, [facility] [address] [id number] [address] [place] [phone] November, [facility] [address] [id number] [address] [place] [address] Oct, [facility] [address] [id number] [address] [place] [address] Aug, [facility] [address] [id number] [address] [place] [address] Aug, [facility] [address] [id number] [address] [place] [address] Jun, [facility] [address] [id number] [address] [place] [address] May, [facility] [address] [id number] [address] [place] [address] May, [facility] [address] [id number] [address] [place] [address] Jan, [facility] [address] [id number] [address] [place] [address] Oct, IMMUNIZATIONS No Known Immunizations SOCIAL HISTORY Never Assessed REASON FOR VISIT PLAN OF CARE VITAL SIGNS MEDICATIONS Medication Instructions Dosage Frequency Start Date End Date Duration S shaina Renee 50-500 MG Orally Twice a day 1 tablet 12h 12 Mar, 2018 Active RESULTS No Results PROCEDURES No Known procedures INSTRUCTIONS MEDICATIONS ADMINISTERED No Known Medications MEDICAL (GENERAL) HISTORY Type Description Date Medical History Hyperlipidemia Medical History Miocardial Infarction (Hx ) 2 stents placed in RCA by DR MACHADO Surgical History Heart Cath 2017 Surgical History Cholecystectomy 1985 Hospitalization History Chest pain-[facility] 09/15/17
--- OUTSIDE RECORDS SUMMARY | 2019-10-19 08:32 | XMS REPORT ---
Author Author Ximena HILL Organization [facility] Address [address] [place] [address] Care Team Providers Care Video Game Technician Name Role Phone DENISE HILL Unavailable PROBLEMS Type Condition ICD9-CM Code [id number] Code Onset Dates Condition S tatus SNOMED Code Problem History of [place] (myocardial infarction) I25.2 Active 931288775 Problem Non-insulin dependent type 2 diabetes mellitus E11 [address] elevation myocardial infarction involving rig ht coronary artery I21.11 Active 425397775 Problem Tobacco abuse Z72.0 Active 388532 000 ALLERGIES Substance Reaction Event Type Date Status Tylenol chest pain Drug Allergy May, Active Metformin 500 Mg Tablet pt states she felt groggy Non Drug Allergy May, Active ENCOUNTERS Encounter Location Date Diagnosis [facility] [address] [id number] [address] [place] [phone] Feb, [facility] [address] [id number] [address] [place] [phone] Jan, [facility] [address] [id number] [address] [place] [phone] Dec, [facility] [address] [facility] [id number] [address] [place] [phone] Dec, [facility] [address] [facility] [id number] [address] [place] [phone] Dec, [facility] [address] [id number] [address] [place] [phone] Aug, Non-insulin dependent type 2 diabetes mellitus E11.9 ; Atypical chest pain R07.89 and Tobacco use Z72.0 [facility] [address] [id number] [place] [id number] Aug, [facility] [address] [facility] [id number] [address] [place] [phone] Jun, [facility] [address] [facility] [id number] [address] [place] [phone] May, Non-insulin dependent type 2 diabetes mellitus E11.9 ; Tobacco abuse Z72.0 and History of OR (myocardial infarction) I25.2 [facility] [address] [id number] [address] [place] [phone] Mar, Dysphagia, unspecified type R13.10 ; Non-insulin dependent type 2 diabetes mellitus E11.9 and Tobacco abuse Z72.0 [facility] [address] [facility] [id number] [address] [place] [phone] Feb, Non-insulin dependent type 2 diabetes mellitus E11.9 ; Dysphagia, unspecified type R13.10 and Tobacco abuse Z72.0 [facility] [address] [facility] [id number] [address] [place] [phone] Feb, [facility] [address] [facility] [id number] [address] [place] [phone] Jan, [facility] [address] [facility] [id number] [address] [place] [phone] Dec, [facility] [address] [facility] [id number] [address] [place] [phone] Oct, [facility] [address] [facility] [id number] [address] [place] [phone] Sep, ST elevation myocardial infa rction involving right coronary artery I21.11 ; Tobacco abuse Z72.0 and Non-insulin dependent type 2 diabetes mellitus E11.9 [facility] [address] [facility] [id number] [address] [place] [phone] 14 Oct, 2014 [facility] [address] [facility] [id number] [address] [place] [phone] 13 Oct, 2014 [facility] [address] [facility] [id number] [address] [place] [phone] Feb, [facility] [address] [id number] [address] [place] [address], [place] [address] Feb, [facility] [address] [id number] [address] [place] [address], [place] [address] Jan, [facility] [address] [id number] [address] [place] [address], [place] [address] Jan, [facility] [address] [id number] [address] [place] [address], [place] [address] Jan, [facility] [address] [id number] [address] [place] [address], [place] [address] Jan, [facility] [address] [id number] [address] [place] [address], [place] [address] Aug, [facility] [address] [id number] [address] [place] [address], [place] [address] Aug, [facility] [address] [id number] [address] [place] [address], [place] [address] Jul, [facility] [address] [id number] [address] [place] [address], [place] [address] Jul, [facility] [address] [id number] [address] [place] [address], [place] [address] Jul, [facility] [address] [id number] [address] [place] [address], [place] [address] Jul, [facility] [address] [id number] [address] [place] [address], [place] [address] Dec, [facility] [address] [id number] [address] [place] [address], [place] [address] Dec, [facility] [address] [id number] [address] [place] [address], [place] [address] November, [facility] [address] [id number] [address] [place] [address], [place] [address] November, [facility] [address] [id number] [address] [place] [address], [place] [address] November, [facility] [address] [id number] [address] [place] [address], [place] [address] Sep, [facility] [address] [id number] [address] [place] [address], [place] [address] May, [facility] [address] [id number] [address] [place] [address], [place] [address] May, [facility] [address] [id number] [address] [place] [address], [place] [address] May, [facility] [address] [id number] [address] [place] [address], [place] [address] May, [facility] [address] [id number] [address] [place] [address], [place] [address] May, [facility] [address] [id number] [address] [place] [address], [place] [address] May, [facility] [address] [id number] [address] [place] [address], [place] [address] May, [facility] [address] [id number] [address] [place] [address], [place] [address] May, [facility] [address] [id number] [address] [place] [address], [place] [address] Apr, [facility] [address] [id number] [address] [place] [address], [place] [address] Apr, [facility] [address] [id number] [address] [place] [address], [place] [address] Feb, [facility] [address] [id number] [address] [place] [address], [place] [address] Feb, [facility] [address] [id number] [address] [place] [address], [place] [address] Dec, [facility] [address] [id number] [address] [place] [address], [place] [address] November, [facility] [address] [id number] [address] [place] [address] November, [facility] [address] [id number] [address] [place] [id number] Oct, [facility] [address] [id number] [address] [place] [address] Aug, [facility] [address] [id number] [address] [place] [address] Aug, [facility] [address] [id number] [address] [place] [address] Jun, [facility] [address] [id number] [address] [place] [phone] May, [facility] [address] [id number] [address] [place] [address] May, [facility] [address] [id number] [address] [place] [address] Jan, [facility] [address] [id number] [address] [place] [phone] Oct, IMMUNIZATIONS No Known Immunizations SOCIAL HISTORY Never Assessed REASON FOR VISIT Cardio f/u -- arnoldo garcia PLAN OF CARE Activity Details Follow Up 3 Months with Luis f/u BIN pritchard: VITAL SIGNS Height 70 in 2017-06-27 Weight 197.6 lbs 2017-06-27 Temperature 98.6 degrees Fahrenheit 2017-06-27 BMI 28.35 kg/m2 2017-06-27 Blood pressure systolic 136 mmHg 2017-06-27 Blood pressure diastolic 78 mmHg 2017-06-27 MEDICATIONS Medication Instructions Dosage Frequency Start Date End Date Duration S tatus Aspirin 81 MG Orally Once a day 1 tablet 24h Active Clopidogrel Bisulfate 75 MG Orally Once a day 1 tablet 24h Active GlipiZIDE XL 10 mg Orally Once a day 1 tablet 24h 30 May, 2017 30 day(s) Active Lisinopril 5 mg Orally Once a day 1/2 tablet 24h 30 Active Sarles 3 1000 MG Orally Once a day 2 capsule 24h Active Multivitamin Women - Act shady Metoprolol Succinate ER 25 MG Orally Once a day 1/2 tablet 24h Active Atorvastatin Calcium 40 mg Orally Once a day 1 tablet 24h 30 Active RESULTS Name Result Date Reference Range A1C (IN HOUSE) 2017-06-27 A1C IN HOUSE 7.0 4.3 - 5.6 % Previous A1c 6.9 Lot [id number] Exp date 01/2019 PROCEDURES Procedure Date Ordered Result Body Site GLYCATED HEMOGLOBIN TEST Jun 27, 2017 INSTRUCTIONS MEDICATIONS ADMINISTERED No Known Medications MEDICAL (GENERAL) HISTORY Type Description Date Medical History Hyperlipidemia Medical History Miocardial Infarction (Hx ) 2 stents placed in RCA by DR MACHADO Surgical History Heart Cath 2016 Surgical History Cholecystectomy 1985 Hospitalization History Chest pain-[facility] 09/15/17
--- OUTSIDE RECORDS SUMMARY | 2019-10-19 08:33 | XMS REPORT ---
Author Author Ximena HILL Organization [facility] Address [address] [place] [address] Care Team Providers Care Hospice Clinical Marketer Name Role Phone DENISE HILL Unavailable PROBLEMS Type Condition ICD9-CM Code TZU35-XX Code Onset Dates Condition S tatus SNOMED Code Problem History of [place] (myocardial infarction) I25.2 Active 155925779 Problem Non-insulin dependent type 2 diabetes mellitus E11 [address] elevation myocardial infarction involving rig ht coronary artery I21.11 Active 342294683 Problem Tobacco abuse Z72.0 Active 931631 000 ALLERGIES No Information ENCOUNTERS Encounter Location Date Diagnosis [facility] [address] [id number] [address] [place] [phone] Jan, [facility] [address] [facility] [id number] [address] [place] [phone] Dec, [facility] [address] [facility] [id number] [address] [place] [phone] Aug, Non-insulin dependent type 2 diabetes mellitus E11.9 ; Atypical chest pain R07.89 and Tobacco use Z72.0 [facility] [address] [id number] [place] [id number] Aug, [facility] [address] [facility] [id number] [address] [place] [address] Jun, [facility] [address] [id number] [address] [place] [address] May, Non-insulin dependent type 2 diabetes mellitus E11.9 ; Tobacco abuse Z72.0 and History of [place] (myocardial infarction) I25.2 [facility] [address] [facility] [id number] [address] [place] [phone] Mar, Dysphagia, unspecified type R13.10 ; Non-insulin dependent type 2 diabetes mellitus E11.9 and Tobacco abuse Z72.0 [facility] [address] [id number] [address] [place] [phone] Feb, Non-insulin dependent type 2 diabetes mellitus E11.9 ; Dysphagia, unspecified type R13.10 and Tobacco abuse Z72.0 [facility] [address] [id number] [address] [place] [phone] Feb, [facility] [address] [id number] [address] [place] [phone] Jan, [facility] [address] [id number] [address] [place] [phone] Dec, [facility] [address] [id number] [address] [place] [id number] Oct, [facility] [address] [id number] [address] [place] [phone] Sep, ST elevation myocardial infa rction involving right coronary artery I21.11 ; Tobacco abuse Z72.0 and Non-insulin dependent type 2 diabetes mellitus E11.9 [facility] [address] [id number] [address] [place] [phone] Oct, [facility] [address] [id number] [address] [place] [phone] Oct, [facility] [address] [id number] [address] [place] [phone] Feb, [facility] [address] [id number] [address] [place] [phone] Feb, [facility] [address] [id number] [address] [place] [phone] Jan, [facility] [address] [id number] [address] [place] [id number] Jan, [facility] [address] [id number] [address] [place] [phone] Jan, [facility] [address] [id number] [address] [place] [address], [place] [address] Jan, [facility] [address] [id number] [address] [place] [address], [place] [address] Aug, [facility] [address] [id number] [address] [place] [address], [place] [address] Aug, [facility] [address] [id number] [address] [place] [address], [place] [address] Jul, [facility] [address] [id number] [address] [place] [address], [place] [address] Jul, [facility] [address] [id number] [address] [place] [address], [place] [address] Jul, [facility] [address] [id number] [address] [place] [address], [place] [address] Jul, [facility] [address] [id number] [address] [place] [address], [place] [address] Dec, [facility] [address] [id number] [address] [place] [address], [place] [address] Dec, [facility] [address] [id number] [address] [place] [address], [place] [address] November, [facility] [address] [id number] [address] [place] [address], [place] [address] November, [facility] [address] [id number] [address] [place] [address], [place] [address] November, [facility] [address] [id number] [address] [place] [address], [place] [address] Sep, [facility] [address] [id number] [address] [place] [address], [place] [address] May, [facility] [address] [id number] [address] [place] [address], [place] [address] May, [facility] [address] [id number] [address] [place] [address], [place] [address] May, [facility] [address] [id number] [address] [place] [address], [place] [address] May, [facility] [address] [id number] [address] [place] [address], [place] [address] May, [facility] [address] [id number] [address] [place] [address], [place] [address] May, [facility] [address] [id number] [address] [place] [address], [place] [address] May, [facility] [address] [id number] [address] [place] [address], [place] [address] May, [facility] [address] [id number] [address] [place] [address], [place] [address] Apr, [facility] [address] [id number] [address] [place] [address], [place] [address] Apr, [facility] [address] [id number] [address] [place] [address], [place] [address] Feb, [facility] [address] [id number] [address] [place] [address], [place] [address] Feb, [facility] [address] [id number] [address] [place] [address], [place] [address] Dec, [facility] [address] [id number] [address] [place] [address], [place] [address] November, [facility] [address] [id number] [address] [place] [address], [place] [address] November, [facility] [address] [id number] [address] [place] [address], [place] [address] Oct, [facility] [address] [id number] [address] [place] [address], [place] [address] Aug, [facility] [address] [id number] [address] [place] [address], [place] [address] Aug, [facility] [address] [facility] [id number] [address] [place] [address] Jun, [facility] [address] [facility] [id number] [address] [place] [phone] May, [facility] [address] [facility] [id number] [address] [place] [phone] May, [facility] [address] [facility] [id number] [address] [place] [phone] Jan, [facility] [address] [facility] [id number] [address] [place] [id number] Oct, IMMUNIZATIONS No Known Immunizations SOCIAL HISTORY Never Assessed REASON FOR VISIT Requests return call PLAN OF CARE VITAL SIGNS MEDICATIONS Unknown Medications RESULTS No Results PROCEDURES No Known procedures INSTRUCTIONS MEDICATIONS ADMINISTERED No Known Medications MEDICAL (GENERAL) HISTORY Type Description Date Medical History Hyperlipidemia Medical History Miocardial Infarction (Hx ) 2 stents placed in RCA by DR MACHADO Surgical History Heart Cath 2016 Surgical History Cholecystectomy 1985 Hospitalization History [facility] pain[facility] 09/15/17
--- OUTSIDE RECORDS SUMMARY | 2019-10-19 08:33 | XMS REPORT ---
Author Author Ximena MORALES Organization [facility] Address [address] [place] [address] Care Team Providers Care Roofing Machine Operator Name Role Phone DARLENE MORALES Unavailable PROBLEMS Type Condition ICD9-CM Code VZS48-XC Code Onset Dates Condition S tatus SNOMED Code Problem History of SD (myocardial infarction) I25.2 Active 104990494 Problem Non-insulin dependent type 2 diabetes mellitus E11 [address] elevation myocardial infarction involving rig ht coronary artery I21.11 Active 516121238 Problem Tobacco abuse Z72.0 Active 661888 000 ALLERGIES No Information ENCOUNTERS Encounter Location Date Diagnosis [facility] [address] [id number] [address] [place] [phone] Feb, [facility] [address] [id number] [address] [place] [phone] Dec, [facility] [address] [id number] [address] [place] [phone] Dec, [facility] [address] [id number] [address] [place] [phone] Dec, [facility] [address] [id number] [address] [place] [phone] Aug, Non-insulin dependent type 2 diabetes mellitus E11.9 ; Atypical chest pain R07.89 and Tobacco use Z72.0 [facility] [address] [id number] Aug, [facility] [address] [id number] [address] [place] [phone] Jun, [facility] [address] [id number] [address] [place] [phone] May, Non-insulin dependent type 2 diabetes mellitus E11.9 ; Tobacco abuse Z72.0 and History of SD (myocardial infarction) I25.2 [facility] [address] [id number] [address] [place] [phone] Mar, Dysphagia, unspecified type R13.10 ; Non-insulin dependent type 2 diabetes mellitus E11.9 and Tobacco abuse Z72.0 [facility] [address] [id number] [address] [place] [phone] Feb, Non-insulin dependent type 2 diabetes mellitus E11.9 ; Dysphagia, unspecified type R13.10 and Tobacco abuse Z72.0 [facility] [address] [id number] [address] [place] [id number] Feb, [facility] [address] [facility] [id number] [address] [place] [phone] Jan, [facility] [address] [facility] [id number] [address] [place] [phone] Dec, [facility] [address] [id number] [address] [place] [phone] Oct, [facility] [address] [facility] [id number] [address] [place] [phone] Sep, ST elevation myocardial infa rction involving right coronary artery I21.11 ; Tobacco abuse Z72.0 and Non-insulin dependent type 2 diabetes mellitus E11.9 [facility] [address] [id number] [address] [place] [phone] Oct, [facility] [address] [id number] [address] [place] [phone] Oct, [facility] [address] [facility] [id number] [address] [place] [phone] Feb, [facility] [address] [facility] [id number] [address] [place] [phone] Feb, [facility] [address] [id number] [address] [place] [address], [place] [address] 14 Jan, 2014 [facility] [address] [id number] [address] [place] [address], [place] [address] 14 Jan, 2014 [facility] [address] [id number] [address] [place] [address], [place] [address] 14 Jan, 2014 [facility] [address] [id number] [address] [place] [address], [place] [address] 14 Jan, 2014 [facility] [address] [id number] [address] [place] [address], [place] [address] Aug, [facility] [address] [id number] [address] [place] [address], [place] [address] Aug, [facility] [address] [id number] [address] [place] [address], [place] [address] Jul, [facility] [address] [id number] [address] [place] [address], [place] [address] Jul, [facility] [address] [id number] [address] [place] [address], [place] [address] Jul, [facility] [address] [id number] [address] [place] [address], [place] [address] Jul, [facility] [address] [id number] [address] [place] [address], [place] [address] 05 Dec, 2012 [facility] [address] [id number] [address] [place] [address], [place] [address] Dec, [facility] [address] [id number] [address] [place] [address], [place] [address] November, [facility] [address] [id number] [address] [place] [address], [place] [address] November, [facility] [address] [id number] [address] [place] [address], [place] [address] November, [facility] [address] [id number] [address] [place] [address], [place] [address] Sep, [facility] [address] [id number] [address] [place] [address], [place] [address] May, [facility] [address] [id number] [address] [place] [address], [place] [address] May, [facility] [address] [id number] [address] [place] [address], [place] [address] May, [facility] [address] [id number] [address] [place] [address], [place] [address] May, [facility] [address] [id number] [address] [place] [address], [place] [address] May, [facility] [address] [id number] [address] [place] [address], [place] [address] May, [facility] [address] [id number] [address] [place] [address], [place] [address] May, [facility] [address] [id number] [address] [place] [address], [place] [address] May, [facility] [address] [id number] [address] [place] [address], [place] [address] Apr, [facility] [address] [id number] [address] [place] [address], [place] [address] Apr, [facility] [address] [id number] [address] [place] [address], [place] [address] Feb, [facility] [address] [id number] [address] [place] [address] Feb, [facility] [address] [id number] [address] [place] [address], [place] [address] Dec, [facility] [address] [id number] [address] [place] [address], [place] [address] November, [facility] [address] [id number] [address] [place] [address], [place] [address] November, [facility] [address] [id number] [address] [place] [phone] 10 Oct, 2011 [facility] [address] [id number] [address] [place] [phone] 10 Aug, 2011 [facility] [address] [id number] [address] [place] [id number] 10 Aug, 2011 [facility] [address] [id number] [address] [place] [phone] Jun, [facility] [address] [id number] [address] [place] [phone] May, [facility] [address] [id number] [address] [place] [phone] May, [facility] [address] [id number] [address] [place] [phone] Jan, [facility] [address] [id number] [address] [place] [phone] Oct, IMMUNIZATIONS No Known Immunizations SOCIAL HISTORY Never Assessed REASON FOR VISIT Hospital admit/DC PLAN OF CARE VITAL SIGNS MEDICATIONS Medication Instructions Dosage Frequency Start Date End Date Duration S tatus Lisinopril 5 mg Orally Once a day 1/2 tablet 24h Active Atorvastatin Calcium 40 MG Orally Once a day 1/2 tablet 24h Active GlipiZIDE XL 10 mg Orally Once a day 1 tablet 24h May, 30 day(s) Not-Taking Aspirin 81 MG Orally Once a day 1 tablet 24h Active Cheyenne 3 1000 MG Orally Once a day 2 capsule 24h Active Metoprolol Succinate ER 25 MG Orally Once a day 1/2 tablet 24h Not-Taking Multivitamin Women - Act shady Clopidogrel Bisulfate 75 MG Orally Once a day 1 tablet 24h Active RESULTS No Results PROCEDURES No Known procedures INSTRUCTIONS MEDICATIONS ADMINISTERED No Known Medications MEDICAL (GENERAL) HISTORY Type Description Date Medical History Hyperlipidemia Medical History Miocardial Infarction (Hx ) 2 stents placed in RCA by DR MACHADO Surgical History Heart Cath 2016 Surgical History Cholecystectomy 1985 Hospitalization History Chest pain-[facility] 09/15/17
--- OUTSIDE RECORDS SUMMARY | 2019-10-19 08:33 | XMS REPORT | Continuity of Care Document ---
Author Organization Unknown Address Unknown Phone Unavailable Allergies Active Description [...] mg Tablet Drug Allergy 03/06/2012 Yes acetaminophen [id number] Félix g Allergy Unknown N/A 10/02/2016 Medications There is no data. Problems Date Dx Coded Attending Type Code Diagnosis Diagnosed By 11/09/2010 250.02 Joana betes Ii Uncontrolled 11/09/2010 V18.0 FAM HX DIABETES MELLITUS 11/09/2010 250.02 Joana betes Ii Uncontrolled 11/09/2010 V18.0 FAM HX DIABETES MELLITUS 11/09/2010 250.02 Joana betes Ii Uncontrolled 11/09/2010 V18.0 FAM HX DIABETES MELLITUS 11/09/2010 HAWA CORREA DO 250.02 Diabetes Ii Uncontrolled 11/09/2010 HAWA CORREA DO V18.0 FAM HX DIABETES MELLITUS 11/09/2010 HAWA CORREA DO 250.02 Diabetes Ii Uncontrolled 11/09/2010 HAWA CORREA DO V18.0 FAM HX DIABETES MELLITUS 11/09/2010 HAWA CORREA DO 250.02 Diabetes Ii Uncontrolled 11/09/2010 HAWA CORREA DO V18.0 FAM HX DIABETES MELLITUS 11/22/[address] Wall Pain 11/22/2010 V68.1 ISSU E OF REPEAT PRESCRIPTIONS 11/22/[address] Wall Pain 11/22/2010 V68.1 ISSU E OF REPEAT PRESCRIPTIONS 11/22/[address] Wall Pain 11/22/2010 V68.1 ISSU E OF REPEAT PRESCRIPTIONS 11/22/2010 HAWA CORREA DO 786.52 Chest Wall Pain 11/22/2010 CORREA DO, HAWA K V68.1 ISSUE OF REPEAT PRESCRIPTIONS 11/22/2010 CORREA DO, HAWA K 786.52 Chest Wall Pain 11/22/2010 CORREA DO, HAWA K V68.1 ISSUE OF REPEAT PRESCRIPTIONS 11/22/2010 CORREA DO, HAWA K 786.52 Chest Wall Pain 11/22/2010 CORREA DO, HAWA K V68.1 ISSUE OF REPEAT PRESCRIPTIONS 12/21/2010 250.00 JOANA BETES MELLITUS TYPE 2 12/21/2010 250.00 JOANA BETES MELLITUS TYPE 2 12/21/2010 250.00 JOANA BETES MELLITUS TYPE 2 12/21/2010 CORREA DO, HAWA K 250.00 DIABETES MELLITUS TYPE 2 12/21/2010 CORREA DO, HAWA K 250.00 DIABETES MELLITUS TYPE 2 12/21/2010 CORREA DO, HAWA K 250.00 DIABETES MELLITUS TYPE 2 03/06/2012 272.4 DYSL IPIDEMIA 03/06/2012 586 RENAL FAILURE UNSPECIFIED 03/06/2012 599.0 Urin lacey Tract Infection 03/06/2012 V70.0 ROUT INE GENERAL MEDICAL EXAMINATION AT A HEALTH CARE FACILITY 03/06/2012 272.4 DYSL IPIDEMIA 03/06/2012 586 RENAL FAILURE UNSPECIFIED 03/06/2012 599.0 Urin lacey Tract Infection 03/06/2012 V70.0 ROUT INE GENERAL MEDICAL EXAMINATION AT A HEALTH CARE FACILITY 03/06/2012 272.4 DYSL IPIDEMIA 03/06/2012 586 RENAL FAILURE UNSPECIFIED 03/06/2012 599.0 Urin lacey Tract Infection 03/06/2012 V70.0 ROUT INE GENERAL MEDICAL EXAMINATION AT A HEALTH CARE FACILITY 03/06/2012 CORREA DO, HAWA K 272.4 DYSLIPIDEMIA 03/06/2012 CORREA DO, HAWA K 586 RENAL FAILURE UNSPECIFIED 03/06/2012 CORREA DO, HAWA K 599.0 Urinary Tract Infection 03/06/2012 CORREA DO, HAWA K V70.0 ROUTINE GENERAL MEDICAL EXAMINATION AT A HEALTH CARE FACILITY 03/06/2012 CORREA DO HAWA K 272.4 DYSLIPIDEMIA 03/06/2012 CORREA DO, HAWA K 586 RENAL FAILURE UNSPECIFIED 03/06/2012 CORREA DO HAWA K 599.0 Urinary Tract Infection 03/06/2012 CORREA DO HAWA K V70.0 ROUTINE GENERAL MEDICAL EXAMINATION AT A HEALTH CARE FACILITY 03/06/2012 CORREA DO HAWA K 272.4 DYSLIPIDEMIA 03/06/2012 CORREA HAWA BRITT K 586 RENAL FAILURE UNSPECIFIED 03/06/2012 SUNNY BRITTHAWA K 599.0 Urinary Tract Infection 03/06/2012 SUNNY BIRTT HAWA K V70.0 ROUTINE GENERAL MEDICAL EXAMINATION AT A HEALTH CARE FACILITY 12/03/2012 461.9 SINU SITIS ACUTE 12/03/2012 719.40 PHONG N IN JOINT SITE UNSPECIFIED 12/03/2012 461.9 SINU SITIS ACUTE 12/03/2012 719.40 PHONG N IN JOINT SITE UNSPECIFIED 12/03/2012 CORREA HAWA BRITT K 461.9 SINUSITIS ACUTE 12/03/2012 HAWA CORREA DO K 719.40 PAIN IN JOINT SITE UNSPECIFIED 12/03/2012 HAWA CORREA DO K 461.9 SINUSITIS ACUTE 12/03/2012 CORREA HAWA BRITT K 719.40 PAIN IN JOINT SITE UNSPECIFIED 10/02/2016 ANGI BO Ot 461 .9 ACUTE SINUSITIS NOS 10/04/2016 JEANNETTE MOSS FACC, EMMANUEL FACP CCDS Ot E11.9 TYPE 2 DIABETES MELLITUS WITHOUT COMPLIC 10/04/2016 JEANNETTE MOSS FACC, ALI FACP CCDS Ot I21.19 STEMI INVOLVING [facility] CORONARY ARTERY OF I 10/04/2016 JEANNETTE MOSS FACC, ALI FACP CCDS Ot I25.10 ATHSCL HEART DISEASE OF [place] CORONARY 10/04/2016 JEANNETTE MOSS FACC, ALI FACP CCDS Ot I25.5 ISCHEMIC CARDIOMYOPATHY 10/04/2016 JEANNETTE MOSS FACC, ALI FACP CCDS Ot I47.2 VENTRICULAR TACHYCARDIA 10/04/2016 JEANNETTE MOSS FACC, ALI FACP CCDS Ot Z72.0 TOBACCO USE 10/04/2016 JEANNETTE MOSS FACC, ALI FACP CCDS Ot Z91.19 PATIENT'S NONCOMPLIANCE W [facility] MEDICAL TR 10/05/2016 ANGI BO Ot 461 .9 ACUTE SINUSITIS NOS 10/05/2016 ANGI BO Ot 461 .9 ACUTE SINUSITIS NOS 10/08/2016 ANGI BO Ot 461 .9 ACUTE SINUSITIS NOS 10/09/2016 BAIMA, FORREST L CROP ROLLER Ot I25.10 ATHSCL HEART DISEASE OF [place] CORONARY 10/09/2016 BAIMA, FORREST L CROP ROLLER Ot I25.5 ISCHEMIC CARDIOMYOPATHY 10/09/2016 BAIMA, FORREST L CROP ROLLER Ot I25.10 ATHSCL HEART DISEASE OF [place] CORONARY 10/09/2016 BAIMA, FORREST L CROP ROLLER Ot I25.5 ISCHEMIC CARDIOMYOPATHY 10/10/2016 BAIMA, FORREST L CROP ROLLER Ot I25.10 ATHSCL HEART DISEASE OF [place] CORONARY 10/10/2016 BAIMA, FORREST L CROP ROLLER Ot I25.5 ISCHEMIC CARDIOMYOPATHY 10/30/2016 BAIMA, FORREST L CROP ROLLER Ot I25.10 ATHSCL HEART DISEASE OF [place] CORONARY 10/30/2016 BAIMA, FORREST L CROP ROLLER Ot I25.5 ISCHEMIC CARDIOMYOPATHY 10/30/2016 ANGI BO Ot 461 .9 ACUTE SINUSITIS NOS 10/30/2016 BAIMA, FORREST L CROP ROLLER Ot I25.10 ATHSCL HEART DISEASE OF [place] CORONARY 10/30/2016 BAIMA, FORREST L CROP ROLLER Ot I25.5 ISCHEMIC CARDIOMYOPATHY 11/06/2016 ANGI BO Ot 461 .9 ACUTE SINUSITIS NOS 11/06/2016 BAIMA, FORREST L CROP ROLLER Ot I25.10 ATHSCL HEART DISEASE OF [place] CORONARY 11/06/2016 BAIMA, FORREST L CROP ROLLER Ot I25.5 ISCHEMIC CARDIOMYOPATHY 11/07/2016 JEANNETTE MOSS FACC, EMMANUEL FACP CCDS Ot E78.4 OTHER HYPERLIPIDEMIA 11/07/2016 JEANNETTE MOSS FACC, ALI FACP CCDS Ot I25.10 ATHSCL HEART DISEASE OF [place] CORONARY 11/07/2016 JEANNETTE MOSS FACC, ALI FACP CCDS Ot R53.83 OTHER FATIGUE 11/07/2016 JEANNETTE MOSS FACC, ALI FACP CCDS Ot Z72.0 TOBACCO USE 11/19/2016 JEANNETTE MOSS FACC, ALI FACP CCDS Ot E78.4 OTHER HYPERLIPIDEMIA 11/19/2016 JEANNETTE MOSS FACC, ALI FACP CCDS Ot I25.10 ATHSCL HEART DISEASE OF [place] CORONARY 11/19/2016 JEANNETTE MOSS FACC, ALI FACP CCDS Ot R53.83 OTHER FATIGUE 11/19/2016 JEANNETTE MOSS FACC, ALI FACP CCDS Ot Z72.0 TOBACCO USE 12/15/2016 BRIAN JENKINS STALLION KEEPER Ot E11 .9 TYPE 2 DIABETES MELLITUS WITHOUT COMPLIC 12/15/2016 BRIAN JENKINS STALLION KEEPER Ot F17.210 NICOTINE DEPENDENCE, CIGARETTES, UNCOMPL 12/15/2016 BRIAN JENKINS STALLION KEEPER Ot I10 ESSENTIAL (PRIMARY) HYPERTENSION 12/15/2016 BRIAN JENKINS STALLION KEEPER Ot I25 .2 OLD MYOCARDIAL INFARCTION 12/15/2016 BRIAN JENKINS STALLION KEEPER Ot 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, ALI FACP CCDS Ot E78.4 OTHER HYPERLIPIDEMIA 12/16/[address] [facility], ALI FACP CCDS Ot I25.10 ATHSCL HEART DISEASE OF [place] CORONARY 12/16/[address] [facility], ALI FACP CCDS Ot R53.83 OTHER FATIGUE 12/16/[address] 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, LEFT ANKLE AND FOOT 12/20/2016 BRIAN JENKINS STALLION KEEPER Ot M79.672 PAIN IN LEFT FOOT 12/20/2016 BRIAN JENKINS APRN Ot Z79.02 CUSTODIAL (CURRENT) USE OF 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 12/20/2016 BRIAN JENKINS STALLION KEEPER Ot Z79.899 OTHER BULB INSPECTOR (CURRENT) DRUG THERAPY 01/03/2017 ANGI BO Ot 461 .9 ACUTE SINUSITIS NOS 01/03/2017 LUZMA FORREST L CROP ROLLER Ot I25.10 ATHSCL HEART DISEASE OF [place] CORONARY 01/03/2017 BAIMASOPHIAFORREST L CROP ROLLER Ot I25.5 ISCHEMIC CARDIOMYOPATHY 01/03/2017 JEANNETTE MOSS FACC, ALI FACP CCDS Ot E78.4 OTHER HYPERLIPIDEMIA 01/03/2017 JEANNETTE MOSS FACC, ALI FACP CCDS Ot I25.10 ATHSCL HEART DISEASE OF [place] CORONARY 01/03/2017 JEANNETTE MOSS FACC, ALI FACP CCDS Ot R53.83 OTHER FATIGUE 01/03/2017 JEANNETTE MOSS FACC, ALI FACP CCDS Ot Z72.0 TOBACCO USE 02/06/2017 ANGI BO Ot 461 .9 ACUTE SINUSITIS NOS 02/06/2017 BAIMA, FORREST L CROP ROLLER Ot I25.10 ATHSCL HEART DISEASE OF [place] CORONARY 02/06/2017 BAIMA FORREST L CROP ROLLER Ot I25.5 ISCHEMIC CARDIOMYOPATHY 02/06/2017 JEANNETTE MOSS FACC, ALI FACP CCDS Ot E78.4 OTHER HYPERLIPIDEMIA 02/06/2017 JEANNETTE MOSS FACC, ALI FACP CCDS Ot I25.10 ATHSCL HEART DISEASE OF [place] CORONARY 02/06/2017 JEANNETTE MOSS FACC, ALI FACP CCDS Ot R53.83 OTHER FATIGUE 02/06/2017 JEANNETTE MOSS FACC, ALI FACP CCDS Ot Z72.0 TOBACCO USE 02/13/2017 BAIMA, FORREST L CROP ROLLER Ot E78.4 OTHER HYPERLIPIDEMIA 02/13/2017 BAIMA, FORREST L CROP ROLLER Ot I25.10 ATHSCL HEART DISEASE OF [place] CORONARY 04/08/2017 ANGI BO Ot 461 .9 ACUTE SINUSITIS NOS 04/08/2017 BAIMA FORREST L CROP ROLLER Ot I25.10 ATHSCL HEART DISEASE OF [place] CORONARY 04/08/2017 BAIMA FORREST L CROP ROLLER Ot I25.5 ISCHEMIC CARDIOMYOPATHY 04/08/2017 JEANNETTE MOSS FACC, ALI FACP CCDS Ot E78.4 OTHER HYPERLIPIDEMIA 04/08/2017 JEANNETTE HERNANDEZ, ALI FACP CCDS Ot I25.10 ATHSCL HEART DISEASE OF [place] CORONARY 04/08/2017 JEANNETTE MOSS FACC, ALI FACP CCDS Ot R53.83 OTHER FATIGUE 04/08/2017 JEANNETTE MOSS FACC, ALI FACP CCDS Ot Z72.0 TOBACCO USE 04/08/2017 BAIMA, FORREST L CROP ROLLER Ot E78.4 OTHER HYPERLIPIDEMIA 04/08/2017 BAIMA, FORREST L CROP ROLLER Ot I25.10 ATHSCL HEART DISEASE OF [place] CORONARY 04/24/2017 DENISE HILL MD Ot R13.1 0 DYSPHAGIA, UNSPECIFIED 04/24/[address] [facility], ALI FACP CCDS Ot E78.4 OTHER HYPERLIPIDEMIA 04/24/2017 JEANNETTE MOSS FACC, ALI FACP CCDS Ot I25.10 ATHSCL HEART DISEASE OF [place] CORONARY 04/24/2017 JEANNETTE MOSS FACC, ALI FACP CCDS Ot Z72.0 TOBACCO USE 08/09/2017 BAIMA, FORREST L CROP ROLLER Ot E78.4 OTHER HYPERLIPIDEMIA 08/09/2017 BAIMA, FORREST L CROP ROLLER Ot I25.10 ATHSCL HEART DISEASE OF [place] CORONARY 09/15/2017 ANGI BO Ot 461 .9 ACUTE SINUSITIS NOS 09/15/2017 BAIMA, FORREST L CROP ROLLER Ot I25.10 ATHSCL HEART DISEASE OF [place] CORONARY 09/15/2017 BAIMA, FORREST L CROP ROLLER Ot I25.5 ISCHEMIC CARDIOMYOPATHY 09/15/2017 JEANNETTE HERNANDEZ, ALI FACP CCDS Ot E78.4 OTHER HYPERLIPIDEMIA 09/15/2017 JEANNETTE HERNANDEZ, ALI FACP CCDS Ot I25.10 ATHSCL HEART DISEASE OF [place] CORONARY 09/15/2017 JEANNETTE MOSS FACC, ALI FACP CCDS Ot R53.83 OTHER FATIGUE 09/15/2017 JEANNETTE MOSS FACC, ALI FACP CCDS Ot Z72.0 TOBACCO USE 09/15/2017 BAIMA, FORREST L CROP ROLLER Ot E78.4 OTHER HYPERLIPIDEMIA 09/15/2017 BAIMA, FORREST L CROP ROLLER Ot I25.10 ATHSCL HEART DISEASE OF [place] CORONARY 09/15/2017 DENISE HILL MD Ot R13.1 0 DYSPHAGIA, UNSPECIFIED 09/15/2017 JEANNETTE MOSS FAC, ALI FACP CCDS Ot E78.4 OTHER HYPERLIPIDEMIA 09/15/2017 JEANNETTE MOSS FACC, ALI FACP CCDS Ot I25.10 ATHSCL HEART DISEASE OF [place] CORONARY 09/15/2017 JEANNETTE HERNANDEZC, ALI FACP CCDS Ot Z72.0 TOBACCO USE 09/15/2017 BAIMA, FORREST L CROP ROLLER Ot E78.4 OTHER HYPERLIPIDEMIA 09/15/2017 BAIMA, FORREST L CROP ROLLER Ot I25.10 ATHSCL HEART DISEASE OF [place] CORONARY 09/15/2017 LAMONTE ZAMORANO, ANGI M Ot 461 .9 ACUTE SINUSITIS NOS 09/15/2017 BAIMA, FORREST L CROP ROLLER Ot I25.10 ATHSCL HEART DISEASE OF [place] CORONARY 09/15/2017 BAIMA, FORREST L CROP ROLLER Ot I25.5 ISCHEMIC CARDIOMYOPATHY 09/15/2017 JEANNETTE MOSS FACC, ALI FACP CCDS Ot E78.4 OTHER HYPERLIPIDEMIA 09/15/2017 JEANNETTE MOSS FACC, ALI FACP CCDS Ot I25.10 ATHSCL HEART DISEASE OF [place] CORONARY 09/15/2017 JEANNETTE MOSS FAC, ALI FACP CCDS Ot R53.83 OTHER FATIGUE 09/15/2017 JEANNETTE MOSS FAC, ALI FACP CCDS Ot Z72.0 TOBACCO USE 09/15/2017 BAIMA, FORREST L CROP ROLLER Ot E78.4 OTHER HYPERLIPIDEMIA 09/15/2017 BAIMA, FORREST L CROP ROLLER Ot I25.10 ATHSCL HEART DISEASE OF [place] CORONARY 09/15/2017 DENISE HILL MD Ot R13.1 0 DYSPHAGIA, UNSPECIFIED 09/15/2017 JEANNETTE MOSS FAC, ALI FACP CCDS Ot E78.4 OTHER HYPERLIPIDEMIA 09/15/2017 JEANNETTE MOSS FAC, ALI FACP CCDS Ot I25.10 ATHSCL HEART DISEASE OF [place] CORONARY 09/15/2017 JEANNETTE MOSS FACC, ALI FACP CCDS Ot Z72.0 TOBACCO USE 09/15/2017 BAIMA, FORREST L CROP ROLLER Ot E78.4 OTHER HYPERLIPIDEMIA 09/15/2017 BAIMA, FORREST L CROP ROLLER Ot I25.10 ATHSCL HEART DISEASE OF [place] CORONARY 09/16/2017 DENISE HILL MD Ot E11.9 TYPE 2 DIABETES MELLITUS WITHOUT COMPLIC 09/16/2017 DENISE HILL MD Ot E78.5 HYPERLIPIDEMIA, UNSPECIFIED 09/16/2017 DENISE HILL MD Ot F17.2 10 NICOTINE DEPENDENCE, CIGARETTES, UNCOMPL 09/16/2017 DENISE HILL MD Ot I11.0 HYPERTENSIVE HEART DISEASE WITH HEART FA 09/16/2017 DENISE HILL MD Ot I25.1 0 ATHSCL HEART DISEASE OF [place] CORONARY 09/16/2017 DENISE HILL MD Ot I25.2 OLD MYOCARDIAL INFARCTION 09/16/2017 DENISE HILL MD Ot I50.2 2 CHRONIC SYSTOLIC (CONGESTIVE) HEART FAIL 09/16/2017 DENISE HILL MD Ot I65.2 3 OCCLUSION AND STENOSIS OF BILATERAL [place] 09/16/2017 DENISE HILL MD Ot K21.9 GASTRO-ESOPHAGEAL REFLUX DISEASE WITHOUT 09/16/2017 DENISE HILL MD Ot M25.5 12 PAIN IN LEFT SHOULDER 09/16/2017 DENISE HILL MD Ot R07.8 9 OTHER CHEST PAIN 09/16/2017 DENISE HILL MD Ot Z23 ENCOUNTER FOR IMMUNIZATION 09/16/2017 DENISE HILL MD Ot Z79.8 2 CUSTODIAL (CURRENT) USE OF ASPIRIN 09/16/2017 DENISE HILL MD Ot Z79.8 99 OTHER BULB INSPECTOR (CURRENT) DRUG THERAPY 09/16/2017 DENISE HILL MD Ot Z95.5 PRESENCE OF CORONARY ANGIOPLASTY IMPLANT 10/09/2017 FORREST SEGALP Ot E78.4 OTHER HYPERLIPIDEMIA 10/09/2017 FORREST SEGAL CROP ROLLER Ot I25.10 ATHSCL HEART DISEASE OF [place] CORONARY 02/07/2018 ANGI BO Ot 461 .9 ACUTE SINUSITIS NOS 02/07/2018 FORREST SEGAL CROP ROLLER Ot I25.10 ATHSCL HEART DISEASE OF [place] CORONARY 02/07/2018 FORREST SEGAL CROP ROLLER Ot I25.5 ISCHEMIC CARDIOMYOPATHY 02/07/2018 JEANNETTE MOSS FACC, ALI DAVIDP CCDS Ot E78.4 OTHER HYPERLIPIDEMIA 02/07/2018 JEANNETTE MOSS FACHardy, ALI FACP CCDS Ot I25.10 ATHSCL HEART DISEASE OF [place] CORONARY 02/07/2018 JEANNETTE MOSS FACC, ALI FACP CCDS Ot R53.83 OTHER FATIGUE 02/07/2018 JEANNETTE MOSS FACC, ALI FACP CCDS Ot Z72.0 TOBACCO USE 02/07/2018 BAIMA, FORREST L CROP ROLLER Ot E78.4 OTHER HYPERLIPIDEMIA 02/07/2018 BAIMA, FORREST L CROP ROLLER Ot I25.10 ATHSCL HEART DISEASE OF [place] CORONARY 02/07/2018 LIZ MOSS, DENISE R Ot R13.1 0 DYSPHAGIA, UNSPECIFIED 02/07/2018 JEANNETTE MOSS FACC, ALI FACP CCDS Ot E78.4 OTHER HYPERLIPIDEMIA 02/07/2018 JEANNETTE MOSS FACC, ALI FACP CCDS Ot I25.10 ATHSCL HEART DISEASE OF [place] CORONARY 02/07/2018 JEANNETTE MOSS FACC, ALI FACP CCDS Ot Z72.0 TOBACCO USE 02/07/2018 BAIMA, FORREST L CROP ROLLER Ot E78.4 OTHER HYPERLIPIDEMIA 02/07/2018 BAIMA, FORREST L CROP ROLLER Ot I25.10 ATHSCL HEART DISEASE OF [place] CORONARY 2018 BAIMA, FORREST L CROP ROLLER Ot E11.9 TYPE 2 DIABETES MELLITUS WITHOUT COMPLIC 2018 BAIMA, FORREST L CROP ROLLER Ot E78.4 OTHER HYPERLIPIDEMIA 2018 BAIMA, FORREST L CROP ROLLER Ot I25.10 ATHSCL HEART DISEASE OF [place] CORONARY 2018 BAIMA, FORREST L CROP ROLLER Ot Z72.0 TOBACCO USE 09/10/2018 BAIMA, FORREST L CROP ROLLER Ot E78.5 HYPERLIPIDEMIA, UNSPECIFIED 09/10/2018 BAIMA, FORREST L CROP ROLLER Ot I25.10 ATHSCL HEART DISEASE OF [place] CORONARY 09/10/2018 BAIMA, FORREST L CROP ROLLER Ot I34.0 NONRHEUMATIC MITRAL (VALVE) INSUFFICIENC 09/10/2018 BAIMA, FORREST L CROP ROLLER Ot I77.9 DISORDER OF ARTERIES AND ARTERIOLES, UNS 09/11/2018 BAIMA, FORREST L CROP ROLLER Ot I25.10 ATHSCL HEART DISEASE OF [place] CORONARY 09/11/2018 BAIMA, FORREST L CROP ROLLER Ot I25.5 ISCHEMIC CARDIOMYOPATHY 09/11/2018 JEANNETTE MOSS FACC, ALI FACP CCDS Ot E78.4 OTHER HYPERLIPIDEMIA 09/11/2018 JEANNETTE MOSS FACC, ALI FACP CCDS Ot I25.10 ATHSCL HEART DISEASE OF [place] CORONARY 09/11/2018 JEANNETTE HERNANDEZ, ALI FACP CCDS Ot R53.83 OTHER FATIGUE 09/11/2018 JEANNETTE HERNANDEZ, ALI FACP CCDS Ot Z72.0 TOBACCO USE 09/11/2018 BAIMA, FORREST L CROP ROLLER Ot E78.4 OTHER HYPERLIPIDEMIA 09/11/2018 BAIMA, FORREST L CROP ROLLER Ot I25.10 ATHSCL HEART DISEASE OF [place] CORONARY 09/11/2018 LIZ MOSS, DENISE R Ot R13.1 0 DYSPHAGIA, UNSPECIFIED 09/11/[address] [facility], ALI FACP CCDS Ot E78.4 OTHER HYPERLIPIDEMIA 09/11/2018 JEANNETTE HERNANDEZ, ALI FACP CCDS Ot I25.10 ATHSCL HEART DISEASE OF [place] CORONARY 09/11/2018 JEANNETTE MOSS FACC, ALI FACP CCDS Ot Z72.0 TOBACCO USE 09/11/2018 BAIMA, FORREST L CROP ROLLER Ot E78.4 OTHER HYPERLIPIDEMIA 09/11/2018 BAIMA, FORREST L CROP ROLLER Ot I25.10 ATHSCL HEART DISEASE OF [place] CORONARY 09/11/2018 BAIMA, FORREST L CROP ROLLER Ot E11.9 TYPE 2 DIABETES MELLITUS WITHOUT COMPLIC 09/11/2018 BAIMA, FORREST L CROP ROLLER Ot E78.4 OTHER HYPERLIPIDEMIA 09/11/2018 BAIMA, FORREST L CROP ROLLER Ot I25.10 ATHSCL HEART DISEASE OF [place] CORONARY 09/11/2018 BAIMA, FORREST L CROP ROLLER Ot Z72.0 TOBACCO USE 09/11/2018 BAIMA, FORREST L CROP ROLLER Ot E78.5 HYPERLIPIDEMIA, UNSPECIFIED 09/11/2018 BAIMA, FORREST L CROP ROLLER Ot I25.10 ATHSCL HEART DISEASE OF [place] CORONARY 09/11/2018 BAIMA, FORREST L CROP ROLLER Ot I34.0 NONRHEUMATIC MITRAL (VALVE) INSUFFICIENC 09/11/2018 BAIMA, FORREST L CROP ROLLER Ot I77.9 DISORDER OF ARTERIES AND ARTERIOLES, UNS 09/18/2018 BAIMA, FORREST L CROP ROLLER Ot E78.5 HYPERLIPIDEMIA, UNSPECIFIED 09/18/2018 BAIMA, FORREST L CROP ROLLER Ot I25.10 ATHSCL HEART DISEASE OF [place] CORONARY 09/18/2018 LUZMA FORREST L CROP ROLLER Ot I34.0 NONRHEUMATIC MITRAL (VALVE) INSUFFICIENC 09/18/2018 TESSAMA FORREST L CROP ROLLER Ot I77.9 DISORDER OF ARTERIES AND ARTERIOLES, UNS 04/09/2019 LUZMA FORREST L CROP ROLLER Ot I25.10 ATHSCL HEART DISEASE OF [place] CORONARY 04/09/2019 LUZMA FORREST L CROP ROLLER Ot I25.5 ISCHEMIC CARDIOMYOPATHY 04/09/2019 JEANNETTE MOSS FAC, ALI FACP CCDS Ot E78.4 OTHER HYPERLIPIDEMIA 04/09/2019 JEANNETTE MOSS FAC, ALI FACP CCDS Ot I25.10 ATHSCL HEART DISEASE OF [place] CORONARY 04/09/2019 EJANNETTE MOSS FAC, ALI FACP CCDS Ot R53.83 OTHER FATIGUE 04/09/2019 JEANNETTE MOSS FAC, ALI FACP CCDS Ot Z72.0 TOBACCO USE 04/09/2019 BAIMA FORREST L CROP ROLLER Ot E78.4 OTHER HYPERLIPIDEMIA 04/09/2019 BAIMA, FORREST L CROP ROLLER Ot I25.10 ATHSCL HEART DISEASE OF [place] CORONARY 04/09/2019 LIZ MOSS, DENISE R Ot R13.1 0 DYSPHAGIA, UNSPECIFIED 04/09/[address] [facility], ALI FACP CCDS Ot E78.4 OTHER HYPERLIPIDEMIA 04/09/2019 JEANNETTE MOSS FACC, ALI FACP CCDS Ot I25.10 ATHSCL HEART DISEASE OF [place] CORONARY 04/09/2019 JEANNETTE MOSS FACC, ALI FACP CCDS Ot Z72.0 TOBACCO USE 04/09/2019 BAIMA FORREST L CROP ROLLER Ot E78.4 OTHER HYPERLIPIDEMIA 04/09/2019 BAIMA, FORREST L CROP ROLLER Ot I25.10 ATHSCL HEART DISEASE OF [place] CORONARY 04/09/2019 TESSAMA FORREST L CROP ROLLER Ot E11.9 TYPE 2 DIABETES MELLITUS WITHOUT COMPLIC 04/09/2019 TESSAMA FORREST L CROP ROLLER Ot E78.4 OTHER HYPERLIPIDEMIA 04/09/2019 BAIMA, FORREST L CROP ROLLER Ot I25.10 ATHSCL HEART DISEASE OF [place] CORONARY 04/09/2019 TESSAMA FORREST L CROP ROLLER Ot Z72.0 TOBACCO USE 04/09/2019 LUZMA FORREST L CROP ROLLER Ot E78.5 HYPERLIPIDEMIA, UNSPECIFIED 04/09/2019 BAIMA, FORREST L CROP ROLLER Ot I25.10 ATHSCL HEART DISEASE OF [place] CORONARY 04/09/2019 BAIMA, FORREST L CROP ROLLER Ot I34.0 NONRHEUMATIC MITRAL (VALVE) INSUFFICIENC 04/09/2019 BAIMA, FORREST L CROP ROLLER Ot I77.9 DISORDER OF ARTERIES AND ARTERIOLES, UNS 05/12/2019 NAMRATA LOPEZ STALLION KEEPER Ot C50.912 MALIGNANT NEOPLASM OF UNSPECIFIED SITE O 09/29/2019 BAIMA, FORREST L CROP ROLLER Ot I25.10 ATHSCL HEART DISEASE OF [place] CORONARY 09/29/2019 BAIMA, FORREST L CROP ROLLER Ot I25.5 ISCHEMIC CARDIOMYOPATHY 09/29/2019 JEANNETTE MOSS FAC, ALI FACP CCDS Ot E78.4 OTHER HYPERLIPIDEMIA 09/29/[address] [facility], ALI FACP CCDS Ot I25.10 ATHSCL HEART DISEASE OF [place] CORONARY 09/29/2019 JEANNETTE MOSS FAC, ALI FACP CCDS Ot R53.83 OTHER FATIGUE 09/29/2019 JEANNETTE MOSS FAC, ALI FACP CCDS Ot Z72.0 TOBACCO USE 09/29/2019 BAIMA, FORREST L CROP ROLLER Ot E78.4 OTHER HYPERLIPIDEMIA 09/29/2019 BAIMA, FORREST L CROP ROLLER Ot I25.10 ATHSCL HEART DISEASE OF [place] CORONARY 09/29/2019 ILZ MOSS, DENISE R Ot R13.1 0 DYSPHAGIA, UNSPECIFIED 09/29/2019 JEANNETTE MOSS FAC, ALI FACP CCDS Ot E78.4 OTHER HYPERLIPIDEMIA 09/29/[address] [facility], ALI FACP CCDS Ot I25.10 ATHSCL HEART DISEASE OF [place] CORONARY 09/29/[address] [facility], ALI FACP CCDS Ot Z72.0 TOBACCO USE 09/29/2019 BAIMA, FORREST L CROP ROLLER Ot E78.4 OTHER HYPERLIPIDEMIA 09/29/2019 BAIMA, FORREST L CROP ROLLER Ot I25.10 ATHSCL HEART DISEASE OF [place] CORONARY 09/29/2019 BAIMA, FORREST L CROP ROLLER Ot E11.9 TYPE 2 DIABETES MELLITUS WITHOUT COMPLIC 09/29/2019 BAIMA, FORREST L CROP ROLLER Ot E78.4 OTHER HYPERLIPIDEMIA 09/29/2019 BAIMA, FORREST L CROP ROLLER Ot I25.10 ATHSCL HEART DISEASE OF [place] CORONARY 09/29/2019 FORREST SEGAL CROP ROLLER Ot Z72.0 TOBACCO USE 09/29/2019 FORREST SEGAL CROP ROLLER Ot E78.5 HYPERLIPIDEMIA, UNSPECIFIED 09/29/2019 FORREST SEGAL CROP ROLLER Ot I25.10 ATHSCL HEART DISEASE OF [place] CORONARY 09/29/2019 FORREST SEGAL CROP ROLLER Ot I34.0 NONRHEUMATIC MITRAL (VALVE) INSUFFICIENC 09/29/2019 FORREST SEGAL CROP ROLLER Ot I77.9 DISORDER OF ARTERIES AND ARTERIOLES, UNS 09/29/2019 NAMRATA LOPEZ STALLION KEEPER Ot C50.912 MALIGNANT NEOPLASM OF UNSPECIFIED SITE O 09/29/2019 NAMRATA LOPEZ STALLION KEEPER Ot N63.20 UNSPECIFIED LUMP IN THE LEFT BREAST, UNS 09/29/2019 NAMRATA LOPEZ APRN Ot R92.2 INCONCLUSIVE MAMMOGRAM 10/15/2019 GLYNN PERRY MD Ot N63.32 UNSPECIFIED LUMP IN AXILLARY TAIL OF THE 10/15/2019 GLYNN PERRY MD Ot Z85.3 PERSONAL HISTORY OF MALIGNANT NEOPLASM O 10/15/2019 GLYNN PERRY MD Ot Z90.12 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 Procedures Code [place] [address] ROUT INE VENIPUNCTURE 06/02/2012 35607 A1C (IN-HOUSE) 06/02/2012 72897 MICR O ALBUMIN-IN HOUSE 06/02/2012 73542 CMP 06/02/2012 71362 LIPI D PANEL 06/02/2012 [id number] GF R CALC (RESULT ONLY) 06/02/2012 26001 ROUT INE VENIPUNCTURE 12/03/2012 76338 A1C (IN-HOUSE) 12/03/2012 78194 CMP 12/03/2012 91032 LIPI D PANEL 12/03/2012 [id number] GF R CALC (RESULT ONLY) 12/03/[address] INUS W/O CONTRAST 12/15/2012 37084 ROUT INE VENIPUNCTURE 08/04/2013 06928 MICR O ALBUMIN-IN HOUSE 08/04/2013 27450 A1C (IN-HOUSE) 08/04/2013 [id number] GF R CALC (RESULT ONLY) 08/04/2013 27949 CMP 08/04/2013 08368 LIPI D PANEL 08/04/2013 06305 MICR OALBUMIN 08/04/2013 75017 ROUT INE VENIPUNCTURE 02/08/2014 84707 A1C (IN-HOUSE) 02/08/2014 [id number] GF R CALC (RESULT ONLY) 02/08/2014 67058 CMP 02/08/2014 00999 LIPI D PANEL 02/08/2014 Results Test Result Range Automated blood complete blood count (he mogram) panel - 10/03/16 03:20 Blood leukocytes automated count (number/volume) 9.7 10*3/uL 4.3-11.0 Blood erythrocytes automated count (number/volume) 4.19 10*6/uL 4.35-5.85 Venous blood hemoglobin measurement (mass/volume) 12.6 g/dL 11.5-16.0 Blood hematocrit (volume fraction) 38 % 35-52 Automated erythrocyte mean corpuscular volume 91 [ foz_us] 80-99 Automated erythrocyte mean corpuscular h emoglobin (mass per erythrocyte) 30 pg 25-34 Automated erythrocyte mean corpuscular h emoglobin concentration measurement (mass/volume) 33 g/dL 32-36 Automated erythrocyte distribution width ratio 14. 1 % 10.0- 14.5 Automated blood platelet count (count/volume) 172 10*3/uL 130-400 Automated blood platelet mean volume measurement 11.1 [foz_us] 7.4-10.4 Whole blood basic metabolic panel - 03/14 03:20 Serum or plasma sodium measurement (moles/volume) 139 mmol/L 135-145 Serum or plasma potassium measurement (moles/volume) 4.0 mmol/L 3.6-5.0 Serum or plasma chloride measurement (moles/volume) 109 mmol/L 98-107 Carbon dioxide 20 mmol/L 21-32 Serum or plasma anion gap determination (moles/volume) 10 mmol/L 5-14 Serum or plasma urea nitrogen measurement (mass/volume ) 15 mg/dL 7-18 Serum or plasma creatinine measurement (mass/volume) 0.95 mg/dL 0.60-1.30 Serum or plasma urea nitrogen/creatinine mass ratio 16 NRG Serum or plasma creatinine measurement w ith calculation of estimated glomerular filtration rate 60 NRG Serum or plasma glucose measurement (mass/volume) 102 mg/dL 70-105 Serum or plasma calcium measurement (mass/volume) 9.3 mg/dL 8.5-10.1 Capillary blood glucose measurement by g lucometer (mass/volume) - 10/03/16 10:49 Capillary blood glucose measurement by glucometer (mas s/volume) 119 mg/dL 70-110 Capillary blood glucose measurement by g lucometer (mass/volume) - 10/03/16 16:12 Capillary blood glucose measurement by glucometer (mas s/volume) 91 mg/dL 70-110 Capillary blood glucose measurement by g lucometer (mass/volume) - 10/03/16 21:48 Capillary blood glucose measurement by glucometer (mas s/volume) 94 mg/dL 70-110 Complete blood count (CBC) with automate d white blood cell (WBC) differential - 10/04/16 05:24 Blood leukocytes automated count (number/volume) 9.2 10*3/uL 4.3-11.0 Blood erythrocytes automated count (number/volume) 4.26 10*6/uL 4.35-5.85 Venous blood hemoglobin measurement (mass/volume) 13.0 g/dL 11.5-16.0 Blood hematocrit (volume fraction) 39 % 35-52 Automated erythrocyte mean corpuscular volume 91 [ foz_us] 80-99 Automated erythrocyte mean corpuscular h emoglobin (mass per erythrocyte) 31 pg 25-34 Automated erythrocyte mean corpuscular h emoglobin concentration measurement (mass/volume) 33 g/dL 32-36 Automated erythrocyte distribution width ratio 14. 4 % 10.0- 14.5 Automated blood platelet count (count/volume) 154 10*3/uL [...] 10*3 1.0-4.0 Blood monocytes automated count (number/volume) 0. 5 10*3 0.0-1.0 Automated eosinophil count 0.2 10*3/uL 0 .0-0.3 Automated blood basophil count (count/volume) 0.0 10*3/uL 0.0-0.1 Comprehensive metabolic panel - 10/04/16 05:24 Serum or plasma sodium measurement (moles/volume) 140 mmol/L 135-145 Serum or plasma potassium measurement (moles/volume) 4.2 mmol/L 3.6-5.0 Serum or plasma chloride measurement (moles/volume) 110 mmol/L 98-107 Carbon dioxide 21 mmol/L 21-32 Serum or plasma anion gap determination (moles/volume) 9 mmol/L 5-14 Serum or plasma urea nitrogen measurement (mass/volume ) 19 mg/dL 7-18 Serum or plasma creatinine measurement (mass/volume) 1.01 mg/dL 0.60-1.30 Serum or plasma urea nitrogen/creatinine mass ratio 19 NRG Serum or plasma creatinine measurement w ith calculation of estimated glomerular filtration rate 56 NRG Serum or plasma glucose measurement (mass/volume) 96 mg/dL 70-105 Serum or plasma calcium measurement (mass/volume) 9.3 mg/dL 8.5-10.1 Serum or plasma total bilirubin measurement (mass/volu me) 0.4 mg/dL 0.1-1.0 Serum or plasma alkaline phosphatase heber surement (enzymatic activity/volume) 131 U/L 40-136 Serum or plasma aspartate aminotransfera se measurement (enzymatic activity/volume) 69 U/L 5-34 Serum or plasma alanine aminotransferase measurement (enzymatic activity/volume) 56 U/L 0-55 Serum or plasma protein measurement (mass/volume) 6.5 g/dL 6.4-8.2 Serum or plasma albumin measurement (mass/volume) 3.8 g/dL 3.2-4.5 Magnesium - 10/04/16 05:24 Magnesium 2.3 mg/dL 1.8-2.4 Lipid 1996 panel - 10/04/16 05:24 Serum or plasma triglyceride measurement (mass/volume) 136 mg/dL <150 Serum or plasma cholesterol measurement (mass/volume) 193 mg/dL < 200 Serum or plasma cholesterol in HDL measurement (mass/v olume) 43 mg/dL 40-60 Cholesterol in LDL [mass/volume] in serum or plasma by direct assay 131 mg/dL 1-129 Serum or plasma cholesterol in VLDL measurement (mass/ volume) 27 mg/dL 5-40 Capillary blood glucose measurement by g lucometer (mass/volume) - 10/04/16 10:51 Capillary blood glucose measurement by glucometer (mas s/volume) 183 mg/dL 70-110 Complete blood count (CBC) with automate d white blood cell (WBC) differential - 11/06/16 09:42 Blood leukocytes automated count (number/volume) 8.8 10*3/uL 4.3-11.0 Blood erythrocytes automated count (number/volume) 4.46 10*6/uL 4.35-5.85 Venous blood hemoglobin measurement (mass/volume) 13.4 g/dL 11.5-16.0 Blood hematocrit (volume fraction) 41 % 35-52 Automated erythrocyte mean corpuscular volume 92 [ foz_us] 80-99 Automated erythrocyte mean corpuscular h emoglobin (mass per erythrocyte) 30 pg 25-34 Automated erythrocyte mean corpuscular h emoglobin concentration measurement (mass/volume) 33 g/dL 32-36 Automated erythrocyte distribution width ratio 14. 2 % 10.0- 14.5 Automated blood platelet count (count/volume) 176 10*3/uL [...] 10*3 1.0-4.0 Blood monocytes automated count (number/volume) 0. 4 10*3 0.0-1.0 Automated eosinophil count 0.3 10*3/uL 0 .0-0.3 Automated blood basophil count (count/volume) 0.0 10*3/uL 0.0-0.1 Comprehensive metabolic panel - 11/06/16 09:42 Serum or plasma sodium measurement (moles/volume) 138 mmol/L 135-145 Serum or plasma potassium measurement (moles/volume) 4.1 mmol/L 3.6-5.0 Serum or plasma chloride measurement (moles/volume) 107 mmol/L 98-107 Carbon dioxide 22 mmol/L 21-32 Serum or plasma anion gap determination (moles/volume) 9 mmol/L 5-14 Serum or plasma urea nitrogen measurement (mass/volume ) 29 mg/dL 7-18 Serum or plasma creatinine measurement (mass/volume) 1.03 mg/dL 0.60-1.30 Serum or plasma urea nitrogen/creatinine mass ratio 28 NRG Serum or plasma creatinine measurement w ith calculation of estimated glomerular filtration rate 54 NRG Serum or plasma glucose measurement (mass/volume) 124 mg/dL 70-105 Serum or plasma calcium measurement (mass/volume) 10.0 mg/dL 8.5-10.1 Serum or plasma total bilirubin measurement (mass/volu me) 0.4 mg/dL 0.1-1.0 Serum or plasma alkaline phosphatase heber surement (enzymatic activity/volume) 151 U/L 40-136 Serum or plasma aspartate aminotransfera se measurement (enzymatic activity/volume) 20 U/L 5-34 Serum or plasma alanine aminotransferase measurement (enzymatic activity/volume) 40 U/L 0-55 Serum or plasma protein measurement (mass/volume) 7.5 g/dL 6.4-8.2 Serum or plasma albumin measurement (mass/volume) 4.4 g/dL 3.2-4.5 Magnesium - 11/06/16 09:42 Magnesium 2.4 mg/dL 1.8-2.4 Lipid 1996 panel - 11/06/16 09:42 Serum or plasma triglyceride measurement (mass/volume) 96 mg/dL <150 Serum or plasma cholesterol measurement (mass/volume) 163 mg/dL < 200 Serum or plasma cholesterol in HDL measurement (mass/v olume) 49 mg/dL 40-60 Cholesterol in LDL [mass/volume] in serum or plasma by direct assay 96 mg/dL 1-129 Serum or plasma cholesterol in VLDL measurement (mass/ volume) 19 mg/dL 5-40 Erythrocyte sedimentation rate by patricia gren method - 11/06/16 09:42 Erythrocyte sedimentation rate by westergren method 20 mm 0- 30 THYROID STIMULATING HORMONE - 11/06/16 0 9:42 THYROID STIMULATING HORMONE 1.23 u[iU]/mL 0.35-4.94 Complete blood count (CBC) with automate d white blood cell (WBC) differential - 12/15/16 13:54 Blood leukocytes automated count (number/volume) 7.2 10*3/uL 4.3-11.0 Blood erythrocytes automated count (number/volume) 4.39 10*6/uL 4.35-5.85 Venous blood hemoglobin measurement (mass/volume) 13.2 g/dL 11.5-16.0 Blood hematocrit (volume fraction) 40 % 35-52 Automated erythrocyte mean corpuscular volume 91 [ foz_us] 80-99 Automated erythrocyte mean corpuscular h emoglobin (mass per erythrocyte) 30 pg 25-34 Automated erythrocyte mean corpuscular h emoglobin concentration measurement (mass/volume) 33 g/dL 32-36 Automated erythrocyte distribution width ratio 14. 3 % 10.0- 14.5 Automated blood platelet count (count/volume) 175 10*3/uL [...] 10*3 1.0-4.0 Blood monocytes automated count (number/volume) 0. 6 10*3 0.0-1.0 Automated eosinophil count 0.2 10*3/uL 0 .0-0.3 Automated blood basophil count (count/volume) 0.0 10*3/uL 0.0-0.1 Whole blood basic metabolic panel - 11/27 13:54 Serum or plasma sodium measurement (moles/volume) 139 mmol/L 135-145 Serum or plasma potassium measurement (moles/volume) 3.9 mmol/L 3.6-5.0 Serum or plasma chloride measurement (moles/volume) 106 mmol/L 98-107 Carbon dioxide 23 mmol/L 21-32 Serum or plasma anion gap determination (moles/volume) 10 mmol/L 5-14 Serum or plasma urea nitrogen measurement (mass/volume ) 16 mg/dL 7-18 Serum or plasma creatinine measurement (mass/volume) 0.98 mg/dL 0.60-1.30 Serum or plasma urea nitrogen/creatinine mass ratio 16 NRG Serum or plasma creatinine measurement w ith calculation of estimated glomerular filtration rate 58 NRG Serum or plasma glucose measurement (mass/volume) 131 mg/dL 70-105 Serum or plasma calcium measurement (mass/volume) 10.0 mg/dL 8.5-10.1 Serum or plasma uric acid measurement (m ass/volume) - 12/15/16 13:54 Serum or plasma uric acid measurement (mass/volume) 5.7 mg/dL 2.6-7.2 Complete blood count (CBC) with automate d white blood cell (WBC) differential - 09/15/17 07:45 Blood leukocytes automated count (number/volume) 7.2 10*3/uL 4.3-11.0 Blood erythrocytes automated count (number/volume) 4.59 10*6/uL 4.35-5.85 Venous blood hemoglobin measurement (mass/volume) 14.4 g/dL 11.5-16.0 Blood hematocrit (volume fraction) 42 % 35-52 Automated erythrocyte mean corpuscular volume 90 [ foz_us] 80-99 Automated erythrocyte mean corpuscular h emoglobin (mass per erythrocyte) 31 pg 25-34 Automated erythrocyte mean corpuscular h emoglobin concentration measurement (mass/volume) 35 g/dL 32-36 Automated erythrocyte distribution width ratio 13. 8 % 10.0- 14.5 Automated blood platelet count (count/volume) 188 10*3/uL 130-400 Automated blood platelet mean volume measurement 10.7 [foz_us] 7.4-10.4 Automated blood neutrophils/100 leukocytes 67 % 42-75 Automated blood lymphocytes/100 leukocytes 24 % 12-44 Blood monocytes/100 leukocytes 6 % 0-12 Automated blood eosinophils/100 leukocytes 2 % 0-10 Automated blood basophils/100 leukocytes 0 % 0-10 Blood neutrophils automated count (number/volume) 4.8 10*3 1.8-7.8 Blood lymphocytes automated count (number/volume) 1.7 10*3 1.0-4.0 Blood monocytes automated count (number/volume) 0. 4 10*3 0.0-1.0 Automated eosinophil count 0.2 10*3/uL 0 .0-0.3 Automated blood basophil count (count/volume) 0.0 10*3/uL 0.0-0.1 PT panel in platelet poor plasma by coag ulation assay - 09/15/17 07:45 Prothrombin time (PT) in platelet poor plasma by coagu lation assay 12.4 s 12.2-14.7 INR in platelet poor plasma or blood by coagulation as say 0.9 0.8-1.4 Activated partial thromboplastin time (a PTT) in platelet poor plasma bycoagulation assay - 09/15/17 07:45 Activated partial thromboplastin time (a PTT) in platelet poor plasma bycoagulation assay 26 s 24-35 Fibrin D-dimer FEU measurement in platel et poor plasma (mass/volume) - 09/15/17 07:45 Fibrin D-dimer FEU measurement in platelet poor plasma (mass/volume) 1.02 ug/mL 0.00-0.49 Comprehensive metabolic panel - 09/15/17 07:45 Serum or plasma sodium measurement (moles/volume) 137 mmol/L 135-145 Serum or plasma potassium measurement (moles/volume) 4.0 mmol/L 3.6-5.0 Serum or plasma chloride measurement (moles/volume) 105 mmol/L 98-107 Carbon dioxide 19 mmol/L 21-32 Serum or plasma anion gap determination (moles/volume) 13 mmol/L 5-14 Serum or plasma urea nitrogen measurement (mass/volume ) 28 mg/dL 7-18 Serum or plasma creatinine measurement (mass/volume) 1.21 mg/dL 0.60-1.30 Serum or plasma urea nitrogen/creatinine mass ratio 23 NRG Serum or plasma creatinine measurement w ith calculation of estimated glomerular filtration rate 45 NRG Serum or plasma glucose measurement (mass/volume) 194 mg/dL 70-105 Serum or plasma calcium measurement (mass/volume) 10.6 mg/dL 8.5-10.1 Serum or plasma total bilirubin measurement (mass/volu me) 0.2 mg/dL 0.1-1.0 Serum or plasma alkaline phosphatase heber surement (enzymatic activity/volume) 165 U/L 40-136 Serum or plasma aspartate aminotransfera se measurement (enzymatic activity/volume) 33 U/L 5-34 Serum or plasma alanine aminotransferase measurement (enzymatic activity/volume) 53 U/L 0-55 Serum or plasma protein measurement (mass/volume) 8.2 g/dL 6.4-8.2 Serum or plasma albumin measurement (mass/volume) 4.6 g/dL 3.2-4.5 Magnesium - 09/15/17 07:45 Magnesium 2.5 mg/dL 1.8-2.4 Myoglobin, serum - 09/15/17 07:45 Myoglobin, serum 44.4 ng/mL 10.0-92.0 Serum or plasma troponin i.cardiac measu rement (mass/volume) - 09/15/17 07:45 Serum or plasma troponin i.cardiac measurement (mass/v olume) < ng/mL <0.30 Myoglobin, serum - 09/15/17 07:45 Myoglobin, serum 44.4 ng/mL 10.0-92.0 Myoglobin, serum - 09/15/17 13:55 Myoglobin, serum 56.4 ng/mL 10.0-92.0 Serum or plasma troponin i.cardiac measu rement (mass/volume) - 09/15/17 13:55 Serum or plasma troponin i.cardiac measurement (mass/v olume) < ng/mL <0.30 Myoglobin, serum - 09/15/17 13:55 Myoglobin, serum 56.4 ng/mL 10.0-92.0 Automated blood complete blood count (he mogram) panel - 09/16/17 05:00 Blood leukocytes automated count (number/volume) 8.5 10*3/uL 4.3-11.0 Blood erythrocytes automated count (number/volume) 4.17 10*6/uL 4.35-5.85 Venous blood hemoglobin measurement (mass/volume) 12.8 g/dL 11.5-16.0 Blood hematocrit (volume fraction) 38 % 35-52 Automated erythrocyte mean corpuscular volume 90 [ foz_us] 80-99 Automated erythrocyte mean corpuscular h emoglobin (mass per erythrocyte) 31 pg 25-34 Automated erythrocyte mean corpuscular h emoglobin concentration measurement (mass/volume) 34 g/dL 32-36 Automated erythrocyte distribution width ratio 13. 7 % 10.0- 14.5 Automated blood platelet count (count/volume) 174 10*3/uL 130-400 Automated blood platelet mean volume measurement 10.9 [foz_us] 7.4-10.4 Comprehensive metabolic panel - 09/16/17 05:00 Serum or plasma sodium measurement (moles/volume) 139 mmol/L 135-145 Serum or plasma potassium measurement (moles/volume) 4.2 mmol/L 3.6-5.0 Serum or plasma chloride measurement (moles/volume) 107 mmol/L 98-107 Carbon dioxide 22 mmol/L 21-32 Serum or plasma anion gap determination (moles/volume) 10 mmol/L 5-14 Serum or plasma urea nitrogen measurement (mass/volume ) 20 mg/dL 7-18 Serum or plasma creatinine measurement (mass/volume) 1.07 mg/dL 0.60-1.30 Serum or plasma urea nitrogen/creatinine mass ratio 19 NRG Serum or plasma creatinine measurement w ith calculation of estimated glomerular filtration rate 52 NRG Serum or plasma glucose measurement (mass/volume) 108 mg/dL 70-105 Serum or plasma calcium measurement (mass/volume) 9.9 mg/dL 8.5-10.1 Serum or plasma total bilirubin measurement (mass/volu me) 0.4 mg/dL 0.1-1.0 Serum or plasma alkaline phosphatase heber surement (enzymatic activity/volume) 144 U/L 40-136 Serum or plasma aspartate aminotransfera se measurement (enzymatic activity/volume) 111 U/L 5-34 Serum or plasma alanine aminotransferase measurement (enzymatic activity/volume) 202 U/L 0-55 Serum or plasma protein measurement (mass/volume) 7.2 g/dL 6.4-8.2 Serum or plasma albumin measurement (mass/volume) 4.2 g/dL 3.2-4.5 Serum or plasma troponin i.cardiac measu rement (mass/volume) - 09/16/17 05:00 Serum or plasma troponin i.cardiac measurement (mass/v olume) < ng/mL <0.30 Lipid 1996 panel - 09/16/17 05:00 Serum or plasma triglyceride measurement (mass/volume) 106 mg/dL <150 Serum or plasma cholesterol measurement (mass/volume) 149 mg/dL < 200 Serum or plasma cholesterol in HDL measurement (mass/v olume) 49 mg/dL 40-60 Cholesterol in LDL [mass/volume] in serum or plasma by direct assay 79 mg/dL 1-129 Serum or plasma cholesterol in VLDL measurement (mass/ volume) 21 mg/dL 5-40 Hemoglobin A1c - 09/16/17 05:00 Blood hemoglobin A1C measurement (mass/volume) 7.2 % 4.0-5.6 MEAN BLOOD GLUCOSE 160 % <=126 SUREPATH PAP AND HPV mRNA E6/E7 - 14:17 CLINICAL INFORMATION: NRG LMP: NRG PREV. PAP: NRG PREV. BX: NRG SOURCE: [employer]ervix NRG STATEMENT OF ADEQUACY: NRG INTERPRETATION/RESULT: NRG DEPUTY CLERK: NRG HPV mRNA E6/E7, SUREPATH VIAL Not Detected NOT DETECTED REVIEW DEPUTY CLERK: NRG COMMENT NRG PATHOLOGY REPORT (TISSUE PAHOLOGY) - 14:17 CLINICAL INFORMATION NRG PATHOLOGIST NRG CULTURE, URINE - 10/02/19 00:00 CULTURE, URINE, ROUTINE SEE NOTE NRG Encounters ACCT No. Visit Date/Time Discharge Status Pt. Type Provider Facility Loc./Unit Complaint [id number] 02/08/2014 11:42:00 02/08/2014 23:59: 59 CLS Outpatient HAWA CORREA DO [id number] 08/04/2013 10:17:00 08/04/2013 23:59: 59 CLS Outpatient HAWA CORREA DO [id number] 06/03/2012 09:49:00 06/03/2012 23:59: 59 CLS Outpatient [id number] 06/02/2012 10:48:00 06/02/2012 23:59:5 9 CLS Outpatient HAWA CORREA DO [id number] 12/15/2012 18:29:00 Document Registration [id number] 12/03/2012 10:35:00 Document Registration [id number] 10/08/2019 11:01:00 020 23:59:59 CLS Outpatient GLYNN PERRY MD [facility] RAD BREAST CA [id number] 10/02/2019 08:33:00 020 23:59:59 CLS Outpatient GLYNN PERRY MD [facility] ONC [id number] 04/29/2019 10:42:00 019 23:59:59 CLS Outpatient NAMRATA LOPEZ STALLION KEEPER [facility] RAD BREAST MASS LEF T [id number] 04/15/2019 08:10:00 019 23:59:59 CLS Outpatient JOHN NAMRATA Hai MARTE [facility] RAD LT BREAST MASS, BLOODY DISCHARGE [id number] 09/09/2018 10:49:00 019 23:59:59 CLS Outpatient FORREST SEGAL CROP ROLLER [facility] LAB I25.10 [id number] 02/07/2018 13:42:00 018 23:59:59 CLS Outpatient FORREST SEGAL CROP ROLLER [facility] LAB CAD,DIABETES,YP ERLIPIDEMIA [id number] 09/15/2017 09:57:00 018 09:13:00 DIS Inpatient DENISE HILL MD [facility] 4TH CHEST PAIN [id number] 08/07/2017 10:20:00 018 23:59:59 CLS Outpatient 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 SEGAL CROP ROLLER [facility] LAB I25.10 E78.4 [id number] 04/16/2017 11:33:00 017 23:59:59 CLS Outpatient EMMANUEL MACHADO MD, FACC, FACP CC DS [facility] CARD CAD I25.10 [id number] 04/08/2017 11:11:00 017 23:59:59 CLS Outpatient DENISE HILL MD [facility] RAD R13.10 DYSPHAGIA [id number] 02/06/2017 11:18:00 017 23:59:59 CLS Outpatient BAIFORREST DOWLING CROP ROLLER [facility] LAB I25.10 E78.4 [id number] 12/15/2016 13:26:00 017 14:35:00 DIS Emergency BRIAN JENKINS APRN [facility] ER L FOOT PAIN [id number] 11/06/2016 09:28:00 017 23:59:59 CLS Outpatient JEANNETTE MOSS FACC, EMMANUEL ULLOA CC DS [facility] LAB FATIGUE,CAD ,HLP [id number] 10/08/2016 13:31:00 017 23:59:59 CLS Outpatient FORREST SEGAL [facility] CARD CAD [id number] 10/02/2016 16:26:00 017 13:20:00 DIS Outpatient JEANNETTE MOSS FACC, EMMANUEL ULLOA CC DS [facility] CATH STEMI [id number] 12/19/2012 09:34:00 013 23:59:59 CLS Outpatient ANGI BO [facility] RAD CHRONIC SINUSITIS [id number] 10/19/2019 09:00:00 P EN PreadGLYNN Paul MD [facility] RAD ELNARGED LYMPH NODE [id number] 10/02/2019 15:00:00 10/02/2019 23:59: 59 CLS Outpatient DENISE HILL [facility] [id number] 10/02/2019 15:00:00 Document Registration [id number] 09/11/2018 13:40:00 Document Registration
--- OUTSIDE RECORDS SUMMARY | 2019-10-19 08:33 | XMS REPORT ---
Author Author Ximena HILL Organization [facility] Address [address] [place] [address] Care Team Providers Care Special Client Bus Driver Name Role Phone DENISE HILL Unavailable PROBLEMS Type Condition ICD9-CM Code [id number] Code Onset Dates Condition S tatus SNOMED Code Problem History of NE (myocardial infarction) I25.2 Active 805435972 Problem Non-insulin dependent type 2 diabetes mellitus E11 [address] elevation myocardial infarction involving rig ht coronary artery I21.11 Active 507058573 Problem Tobacco abuse Z72.0 Active 501450 000 ALLERGIES No Information ENCOUNTERS Encounter Location Date Diagnosis [facility] [address] [facility] [id number] [address] [place] [phone] Aug, Non-insulin dependent type 2 diabetes mellitus E11.9 and Atypical chest pain R07.89 [facility] [address] [place] [id number] [place] [id number] Aug, [facility] [address] [facility] [id number] [address] [place] [address] Jun, [facility] [address] [place] [id number] [address] [place] [address] May, Non-insulin dependent type 2 diabetes mellitus E11.9 ; Tobacco abuse Z72.0 and History of NE (myocardial infarction) I25.2 [facility] [address] [facility] [id number] [address] [place] [address] Mar, Dysphagia, unspecified type R13.10 ; Non-insulin dependent type 2 diabetes mellitus E11.9 and Tobacco abuse Z72.0 [facility] [address] [facility] [id number] [address] [place] [address] Feb, Non-insulin dependent type 2 diabetes mellitus E11.9 ; Dysphagia, unspecified type R13.10 and Tobacco abuse Z72.0 [facility] [address] [id number] [address] [place] [id number] Feb, [facility] [address] [id number] [address] [place] [phone] Jan, [facility] [address] [id number] [address] [place] [phone] Dec, [facility] [address] [id number] [address] [place] [phone] Oct, [facility] [address] [id number] [address] [place] [phone] Sep, ST elevation myocardial infa rction involving right coronary artery I21.11 ; Tobacco abuse Z72.0 and Non-insulin dependent type 2 diabetes mellitus E11.9 [facility] [address] [id number] [address] [place] [phone] Oct, [facility] [address] [id number] [address] [place] [address] Oct, [facility] [address] [id number] [address] [place] [id number] Feb, [facility] [address] [id number] [address] [place] [phone] Feb, [facility] [address] [id number] [address] [place] [phone] Jan, [facility] [address] [id number] [address] [place] [phone] Jan, [facility] [address] [id number] [address] [place] [phone] Jan, [facility] [address] [id number] [address] [place] [phone] Jan, [facility] [address] [id number] [address] [place] [phone] Aug, [facility] [address] [id number] [address] [place] [address], [place] [address] Aug, [facility] [address] [id number] [address] [place] [address], [place] [address] Jul, [facility] [address] [id number] [address] [place] [address], [place] [address] Jul, [facility] [address] [id number] [address] [place] [address], [place] [address] Jul, [facility] [address] [id number] [address] [place] [address], [place] [address] Jul, [facility] [address] [id number] [address] [place] [address], [place] [address] Dec, [facility] [address] [id number] [address] [place] [address], [place] [address] Dec, [facility] [address] [id number] [address] [place] [address], [place] [address] November, [facility] [address] [id number] [address] [place] [address], [place] [address] November, [facility] [address] [id number] [address] [place] [address], [place] [address] November, [facility] [address] [id number] [address] [place] [address], [place] [address] Sep, [facility] [address] [id number] [address] [place] [address], [place] [address] May, [facility] [address] [id number] [address] [place] [address], [place] [address] May, [facility] [address] [id number] [address] [place] [address], [place] [address] May, [facility] [address] [id number] [address] [place] [address], [place] [address] May, [facility] [address] [id number] [address] [place] [address], [place] [address] May, [facility] [address] [id number] [address] [place] [address], [place] [address] May, [facility] [address] [id number] [address] [place] [address], [place] [address] May, [facility] [address] [id number] [address] [place] [address], [place] [address] May, [facility] [address] [id number] [address] [place] [address], [place] [address] Apr, [facility] [address] [id number] [address] [place] [address], [place] [address] Apr, [facility] [address] [id number] [address] [place] [address], [place] [address] Feb, [facility] [address] [id number] [address] [place] [address], [place] [address] Feb, [facility] [address] [id number] [address] [place] [address], [place] [address] Dec, [facility] [address] [id number] [address] [place] [address], [place] [address] November, [facility] [address] [id number] [address] [place] [address], [place] [address] November, [facility] [address] [id number] [address] [place] [address], [place] [address] Oct, [facility] [address] [id number] [address] [place] [address], [place] [address] Aug, [facility] [address] [id number] [address] [place] [address], [place] [address] Aug, [facility] [address] [id number] [address] [place] [address], [place] [address] Jun, [facility] [address] [id number] [address] [place] [address], [place] [address] May, [facility] [address] [facility] [facility] [id number] [address] [place] [address] May, [facility] [address] [facility] [facility] [id number] [address] [place] [address] Jan, [facility] [address] [facility] [facility] [id number] [address] [place] [phone] Oct, IMMUNIZATIONS No Known Immunizations SOCIAL HISTORY Never Assessed REASON FOR VISIT Refill Request PLAN OF CARE VITAL SIGNS MEDICATIONS Medication Instructions Dosage Frequency Start Date End Date Duration S shaina Lisinopril 5 mg Orally Once a day 1/2 tablet 24h 30 days Active RESULTS No Results PROCEDURES No Known procedures INSTRUCTIONS MEDICATIONS ADMINISTERED No Known Medications MEDICAL (GENERAL) HISTORY Type Description Date Medical History Hyperlipidemia Medical History Miocardial Infarction (Hx ) 2 stents placed in RCA by DR MACHADO Surgical History Heart Cath 2016 Surgical History Cholecystectomy 1985 Hospitalization History Chest pain-[facility] 09/15/17
--- OUTSIDE RECORDS SUMMARY | 2019-10-19 08:33 | XMS REPORT ---
Author Author Ximena HILL Organization [facility] Address [address] [place] [address] Care Team Providers Care Creping Machine Operator Name Role Phone DENISE HILL Unavailable PROBLEMS Type Condition ICD9-CM Code [id number] Code Onset Dates Condition S tatus SNOMED Code Problem History of MD (myocardial infarction) I25.2 Active 934190545 Problem Non-insulin dependent type 2 diabetes mellitus E11 [address] elevation myocardial infarction involving rig ht coronary artery I21.11 Active 557213270 Problem Tobacco abuse Z72.0 Active 389019 000 ALLERGIES Substance Reaction Event Type Date Status Tylenol chest pain Drug Allergy Feb, Active Metformin 500 Mg Tablet pt states she felt groggy Non Drug Allergy Feb, Active ENCOUNTERS Encounter Location Date Diagnosis [place] [id number] [facility] [id number] [address] [place] [address] Aug, Non-insulin dependent type 2 diabetes mellitus E11.9 and Atypical chest pain R07.89 [facility] [id number] [place] [id number] Aug, [facility] [address] [facility] [id number] [address] [place] [phone] Jun, [facility] [address] [facility] [id number] [address] [place] [address] May, Non-insulin dependent type 2 diabetes mellitus E11.9 ; Tobacco abuse Z72.0 and History of MD (myocardial infarction) I25.2 [facility] [address] [facility] [id number] [address] [place] [address] Mar, Dysphagia, unspecified type R13.10 ; Non-insulin dependent type 2 diabetes mellitus E11.9 and Tobacco abuse Z72.0 [facility] [address] [id number] [address] [place] [address], [place] [address] Feb, Non-insulin dependent type 2 diabetes mellitus E11.9 ; Dysphagia, unspecified type R13.10 and Tobacco abuse Z72.0 [facility] [address] [id number] [address] [place] [address], [place] [address] Feb, [facility] [address] [id number] [address] [place] [address], [place] [address] Jan, [facility] [address] [id number] [address] [place] [address], [place] [address] Dec, [facility] [address] [id number] [address] [place] [address], [place] [address] Oct, [facility] [address] [id number] [address] [place] [address], [place] [address] Sep, ST elevation myocardial infa rction involving right coronary artery I21.11 ; Tobacco abuse Z72.0 and Non-insulin dependent type 2 diabetes mellitus E11.9 [facility] [address] [id number] [address] [place] [address], [place] [address] Oct, [facility] [address] [id number] [address] [place] [address], [place] [address] Oct, [facility] [address] [id number] [address] [place] [address], [place] [address] Feb, [facility] [address] [id number] [address] [place] [address], [place] [address] Feb, [facility] [address] [id number] [address] [place] [address], [place] [address] Jan, [facility] [address] [id number] [address] [place] [address], [place] [address] Jan, [facility] [address] [id number] [address] [place] [address], [place] [address] Jan, [facility] [address] [id number] [address] [place] [address] Jan, [facility] [address] [id number] [facility] [place] [address] Aug, [facility] [address] [id number] [address] [place] [address], [place] [address] Aug, [facility] [address] [id number] [address] [place] [address], [place] [address] Jul, [facility] [address] [id number] [address] [place] [address], [place] [address] Jul, [facility] [address] [id number] [address] [place] [address], [place] [address] Jul, [facility] [address] [id number] [address] [place] [address], [place] [address] Jul, [facility] [address] [id number] [address] [place] [address], [place] [address] Dec, [facility] [address] [id number] [address] [place] [address], [place] [address] Dec, [facility] [address] [id number] [address] [place] [address], [place] [address] November, [facility] [address] [id number] [address] [place] [address], [place] [address] November, [facility] [address] [id number] [address] [place] [address], [place] [address] November, [facility] [address] [id number] [address] [place] [address], [place] [address] Sep, [facility] [address] [id number] [address] [place] [address], [place] [address] May, [facility] [address] [id number] [address] [place] [address], [place] [address] May, [facility] [address] [id number] [address] [place] [address], [place] [address] May, [facility] [address] [id number] [address] [place] [address], [place] [address] May, [facility] [address] [id number] [address] [place] [address], [place] [address] May, [facility] [address] [id number] [address] [place] [address], [place] [address] May, [facility] [address] [id number] [address] [place] [address], [place] [address] May, [facility] [address] [id number] [address] [place] [address], [place] [address] May, [facility] [address] [id number] [address] [place] [address], [place] [address] Apr, [facility] [address] [id number] [address] [place] [address], [place] [address] Apr, [facility] [address] [id number] [address] [place] [address], [place] [address] Feb, [facility] [address] [id number] [address] [place] [address], [place] [address] Feb, [facility] [address] [id number] [address] [place] [address], [place] [address] Dec, [facility] [address] [id number] [address] [place] [address], [place] [address] November, [facility] [address] [id number] [address] [place] [address], [place] [address] November, [facility] [address] [id number] [address] [place] [address], [place] [address] Oct, [facility] [address] [id number] [address] [place] [address], [place] [address] Aug, [facility] [address] [id number] [address] [place] [address], [place] [address] Aug, [facility] [address] [id number] [address] [place] [address], [place] [address] Jun, [facility] [address] [facility] [id number] [address] [place] [address] May, [facility] [address] [facility] [id number] [address] [place] [address] May, [facility] [address] [facility] [id number] [address] [place] [address] Jan, [facility] [address] [facility] [id number] [address] [place] [address] Oct, IMMUNIZATIONS No Known Immunizations SOCIAL HISTORY Never Assessed REASON FOR VISIT cardio f/u, pt. states yesterday she couldnt catch her breath and her heart was racing . This happened twice, pt. states she feels something in her throat. " like a door closing and opening and can feel it", HARRY Benjamin PLAN OF CARE Activity Details Follow Up f/u after Barium swallow for results Reason: VITAL SIGNS Height 70 in 2017-03-27 Weight 198.2 lbs 2017-03-27 Temperature 97.8 degrees Fahrenheit 2017-03-27 Heart Rate 84 bpm 2017-03-27 Respiratory Rate 20 2017-03-27 BMI 28.44 kg/m2 2017-03-27 Blood pressure systolic 126 mmHg 2017-03-27 Blood pressure diastolic 82 mmHg 2017-03-27 MEDICATIONS Medication Instructions Dosage Frequency Start Date End Date Duration S tatus Multivitamin Women - Act shady Lisinopril 5 mg Orally Once a day 1/2 tablet 24h 30 Active Atorvastatin Calcium 40 mg Orally Once a day 1 tablet 24h 30 Active [place] 3 1000 MG Orally Once a day 2 capsule 24h Active Metformin HCl 500 mg Orally Twice a day (1 tablet daily for the first 7 days) 1 tablet with meals Feb, 30 day(s) Active Aspirin 81 MG Orally Once a day 1 tablet 24h Active Metoprolol Succinate ER 25 MG Orally Once a day 1/2 tablet 24h Active Clopidogrel Bisulfate 75 MG Orally Once a day 1 tablet 24h Active RESULTS Name Result Date Reference Range A1C (IN HOUSE) 2017-03-27 A1C IN HOUSE 6.9 4.3 - 5.6 % Previous A1c 5.6 Lot [id number] Exp date Barium Swallow 2017-04-08 PROCEDURES Procedure Date Ordered Result Body Site GLYCATED HEMOGLOBIN TEST Mar 27, 2017 INSTRUCTIONS MEDICATIONS ADMINISTERED No Known Medications MEDICAL (GENERAL) HISTORY Type Description Date Medical History Hyperlipidemia Medical History Miocardial Infarction (Hx ) 2 stents placed in RCA by DR MACHADO Surgical History Heart Cath 2016 Surgical History Cholecystectomy 1984 Hospitalization History Chest pain-[facility] [place] 09/15/17
--- OUTSIDE RECORDS SUMMARY | 2019-10-19 08:33 | XMS REPORT ---
Author Author Ximena HILL Organization [facility] Address [address] [place] [address] Care Team Providers Care Global Commodity Manager Name Role Phone DENISE HILL Unavailable PROBLEMS Type Condition ICD9-CM Code EOZ62-SG Code Onset Dates Condition S tatus SNOMED Code Problem History of [place] (myocardial infarction) I25.2 Active 955277704 Problem Non-insulin dependent type 2 diabetes mellitus E11 [address] elevation myocardial infarction involving rig ht coronary artery I21.11 Active 370671400 Problem Tobacco abuse Z72.0 Active 968126 000 ALLERGIES Substance Reaction Event Type Date Status Tylenol chest pain Drug Allergy Mar, Active Metformin 500 Mg Tablet pt states she felt groggy Non Drug Allergy Mar, Active ENCOUNTERS Encounter Location Date Diagnosis [facility] [address] [id number] [address] [place] [phone] Dec, [facility] [address] [id number] [address] [place] [phone] Aug, Non-insulin dependent type 2 diabetes mellitus E11.9 and Atypical chest pain R07.89 [facility] [id number] [place] [id number] Aug, [facility] [address] [facility] [id number] [address] [place] [phone] Jun, [facility] [address] [id number] [address] [place] [phone] May, Non-insulin dependent type 2 diabetes mellitus E11.9 ; Tobacco abuse Z72.0 and History of [place] (myocardial infarction) I25.2 [facility] [address] [facility] [id number] [address] [place] [phone] Mar, Dysphagia, unspecified type R13.10 ; Non-insulin dependent type 2 diabetes mellitus E11.9 [address] Tobacco [address]72[address] [facility] [address] [id number] [address] [place] [phone] Feb, Non-insulin dependent type 2 diabetes mellitus E11.9 ; Dysphagia, unspecified type R13.10 and Tobacco abuse Z72.0 [facility] [address] [id number] [address] [place] [phone] Feb, [facility] [address] [id number] [address] [place] [phone] Jan, [facility] [address] [id number] [address] [place] [phone] Dec, [facility] [address] [id number] [address] [place] [phone] Oct, [facility] [address] [id number] [address] [place] [phone] Sep, ST elevation myocardial infa rction involving right coronary artery I21.11 ; Tobacco abuse Z72.0 and Non-insulin dependent type [address] [facility] [address] [id number] [address] [place] [phone] Oct, [facility] [address] [id number] [address] [place] [phone] Oct, [facility] [address] [id number] [address] [place] [phone] Feb, [facility] [address] [id number] [address] [place] [phone] Feb, [facility] [address] [id number] [address] [place] [phone] Jan, [facility] [address] [id number] [address] [place] [phone] Jan, [facility] [address] [id number] [address] [place] [phone] Jan, [facility] [address] [id number] [facility] [place] [address] 14 Jan, 2014 [facility] [address] [id number] [address] [place] [address], [place] [address] Aug, [facility] [address] [id number] [address] [place] [address], [place] [address] Aug, [facility] [address] [id number] [address] [place] [address], [place] [address] Jul, [facility] [address] [id number] [address] [place] [address], [place] [address] Jul, [facility] [address] [id number] [address] [place] [address], [place] [address] Jul, [facility] [address] [id number] [address] [place] [address], [place] [address] Jul, [facility] [address] [id number] [address] [place] [address], [place] [address] Dec, [facility] [address] [id number] [address] [place] [address], [place] [address] Dec, [facility] [address] [id number] [address] [place] [address], [place] [address] November, [facility] [address] [id number] [address] [place] [address], [place] [address] November, [facility] [address] [id number] [address] [place] [address], [place] [address] November, [facility] [address] [id number] [address] [place] [address], [place] [address] Sep, [facility] [address] [id number] [address] [place] [address], [place] [address] May, [facility] [address] [id number] [address] [place] [address], [place] [address] May, [facility] [address] [id number] [address] [place] [address], [place] [address] May, [facility] [address] [id number] [address] [place] [address], [place] [address] May, [facility] [address] [id number] [address] [place] [address], [place] [address] May, [facility] [address] [id number] [address] [place] [address], [place] [address] May, [facility] [address] [id number] [address] [place] [address], [place] [address] May, [facility] [address] [id number] [address] [place] [address], [place] [address] May, [facility] [address] [id number] [address] [place] [address], [place] [address] Apr, [facility] [address] [id number] [address] [place] [address], [place] [address] Apr, [facility] [address] [id number] [address] [place] [address], [place] [address] Feb, [facility] [address] [id number] [address] [place] [address], [place] [address] Feb, [facility] [address] [id number] [address] [place] [address], [place] [address] Dec, [facility] [address] [id number] [address] [place] [address], [place] [address] November, [facility] [address] [id number] [address] [place] [address], [place] [address] November, [facility] [address] [id number] [address] [place] [address], [place] [address] Oct, [facility] [address] [id number] [address] [place] [address], [place] [address] Aug, [facility] [address] [id number] [address] [place] [address], [place] [address] Aug, [facility] [address] [facility] [id number] [address] [place] [phone] Jun, [facility] [address] [facility] [id number] [address] [place] [phone] May, [facility] [address] [facility] [id number] [address] [place] [address] May, [facility] [address] [facility] [id number] [address] [place] [phone] Jan, [facility] [address] [facility] [id number] [address] [place] [phone] Oct, IMMUNIZATIONS No Known Immunizations SOCIAL HISTORY Never Assessed REASON FOR VISIT cardio f/u -- arnoldo garcia PLAN OF CARE Activity Details Follow Up 2 Months with Luis f/u DM w ith A1c Reason: VITAL SIGNS Height 70 in 2017-04-25 Weight 192.0 lbs 2017-04-25 Temperature 97.0 degrees Fahrenheit 2017-04-25 BMI 27.55 kg/m2 2017-04-25 Blood pressure systolic 126 mmHg 2017-04-25 Blood pressure diastolic 70 mmHg 2017-04-25 MEDICATIONS Medication Instructions Dosage Frequency Start Date End Date Duration S tatus Clopidogrel Bisulfate 75 MG Orally Once a day 1 tablet 24h Active Aspirin 81 MG Orally Once a day 1 tablet 24h Active Atorvastatin Calcium 40 mg Orally Once a day 1 tablet 24h 30 Active Lisinopril 5 mg Orally Once a day 1/2 tablet 24h 30 Active Metoprolol Succinate ER 25 MG Orally Once a day 1/2 tablet 24h Active Bishop 3 1000 MG Orally Once a day 2 capsule 24h Active Multivitamin Women - Act shady RESULTS No Results PROCEDURES No Known procedures INSTRUCTIONS MEDICATIONS ADMINISTERED No Known Medications MEDICAL (GENERAL) HISTORY Type Description Date Medical History Hyperlipidemia Medical History Miocardial Infarction (Hx ) 2 stents placed in RCA by DR MACHADO Surgical History Heart Cath 2017 Surgical History Cholecystectomy 1985 Hospitalization History Chest pain-[facility] 09/15/17
--- NOTE | 2019-10-19 10:24 | Diagnostic Imaging Report ---
INDICATION: Enlarged left axillary lymph node. Patient presents for ultrasound-guided biopsy. Patient is brought to the procedure room placed on the table in the supine position. Ultrasound imaging of the left axilla was performed to evaluate appropriate entry site. The left axilla was then prepped and draped in usual sterile fashion. A small amount of 1% lidocaine was utilized for local anesthesia. A total of 3 passes were made into the mildly prominent lymph node in left axilla described on prior ultrasound utilizing a 14-gauge achieve needle. A marker clip was then deployed. Hemostasis was obtained using manual compression. Next, a 20-gauge spinal needle was placed into the cystic lesion adjacent to this lymph node and approximately 5 mL of yellow serous fluid was aspirated. This will be sent for cytology. Hemostasis was obtained. Patient tolerated the procedure well and left the department in stable condition. IMPRESSION: Successful ultrasound-guided core biopsy of the prominent left axillary lymph node. In addition, the adjacent simple appearing cyst was aspirated and this fluid will be sent for cytology as well. Dictated by: Dictated on workstation # [id number]
--- NOTE | 2019-10-19 13:26 | Diagnostic Imaging Report ---
INDICATION: Enlarged left axillary lymph node. Patient is status post lymph node biopsy. FINDINGS: 2D ML mammography was performed. There are multiple surgical clips in the left axilla. There is a lymph node in the left axilla. There is a marker clip adjacent to this. IMPRESSION: Left axillary lymph node biopsy with adjacent marker clip. Dictated by: Dictated on workstation # [id number]
== END | disposition home or self-care (01) ==
LOC: RAD 08:25
PROVIDERS: ATTEND Internal Medicine Hematology & Oncology
DX: R59.0 Localized enlarged lymph nodes (principal); C50.812 Malignant neoplasm of overlapping sites of left female breast
CPT/HCPCS: 19083

== ENCOUNTER → 2019-10-27 | Outpatient (CLI) | payer MEDICAID ==
[~2019-10-27] MED LIST changes: +CATHETER FLUSH 10 ML SYR IV PRN; -LIDOCAINE 1% INJ 20 ML 20 ML VIAL INJ ONE; +MULT1TAB69 PO; +SITA1TAB6 PO
--- NOTE | 2019-10-27 15:05 | Diagnostic Imaging Report ---
INDICATION: Breast carcinoma. Patient was administered 31.0 mCi technetium 99m pertechnetate labeled to the patient's red blood cells and gated cardiac imaging was performed. Left ventricular ejection fraction is normal at 57%. No wall motion abnormalities are seen. IMPRESSION: Normal left ventricular ejection fraction of 57%. Dictated by: Dictated on workstation # [id number]
== END ==
LOC: CARD 13:52
PROVIDERS: ATTEND Internal Medicine Hematology & Oncology
DX: Z51.81 Encounter for therapeutic drug level monitoring (principal); C50.919 Malignant neoplasm of unspecified site of unspecified female breast; Z79.899 Other long term (current) drug therapy
CPT/HCPCS: 78472

== ENCOUNTER 2019-10-28 10:45 | Outpatient (CLI) | payer MEDICAID ==
[~2019-10-28] VITALS: Ht 175.3 cm; Wt 86.4 kg
[~2019-10-28 10:45] MED LIST changes: -CATHETER FLUSH 10 ML SYR IV PRN; -MULT1TAB69 PO; -SITA1TAB6 PO
[2019-10-28] MEDS ORDERED: SITA1TAB6 PO (10:50)
[2019-10-28] MEDS ORDERED: MULT1TAB69 PO (10:50)
== END 2019-10-28 11:00 ==
LOC: PREOP 10:45
PROVIDERS: ATTEND Surgery
DX: Z01.818 Encounter for other preprocedural examination (principal)

== ENCOUNTER 2019-10-30 07:41 | Day surgery (SDC) | payer MEDICAID ==
[~2019-10-30] VITALS: Ht 175.3 cm; Wt 86.4 kg
[~2019-10-30 07:41] MED LIST changes: +MULT1TAB69 PO; +SITA1TAB6 PO
[2019-10-30] MEDS ORDERED: LACTATED RINGERS 1,000 ML IV PRN (07:44)
[2019-10-30] MEDS ORDERED: ceFAZolin 2 GM IV Premixed 50 ML IV ONE (07:45)
--- OUTSIDE RECORDS SUMMARY | 2019-10-30 07:45 | XMS REPORT | Encounter Summary ---
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, estrogen receptor positive (HCC) (Primary Dx) 07/16/2019 Office Visit The [address] [address] Social History Date Tobacco Use Types Packs/Day [...] Comments Vital Sign 109/67 07/16/2019 1:59 PM INSPECTOR RECEIVING Blood Pressure 79 07/16/2019 1:59 PM INSPECTOR RECEIVING Pulse 36.8 C (98.2 F) 07/16/2019 1:59 PM INSPECTOR RECEIVING Temperature 14 07/16/2019 1:59 PM INSPECTOR RECEIVING Respiratory Rate 98% 07/16/2019 1:59 PM INSPECTOR RECEIVING Oxygen Saturation - - Inhaled Oxygen Concentration 86.2 kg (190 lb) 07/16/2019 1:59 PM INSPECTOR RECEIVING Weight 175.3 cm (5' 9.02") 07/16/2019 1:59 PM INSPECTOR RECEIVING Height 28.05 07/16/2019 1:59 PM INSPECTOR RECEIVING Body Mass Index documented in this encounter [...] this encounter Progress Notes * Hannah Santa, GRATING MACHINE OPERATOR - 07/16/2019 2:00 PM INSPECTOR RECEIVING HPI: Ms. 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 Extensive intraductal component (>25%): Present, approximately 5.0 cm in greatest dimension DCIS within and/or adjacent to invasive carcinoma: Yes DCIS separate from invasive carcinoma: Yes Lobular Carcinoma In-situ (LCIS): Present Lymph-Vascular Invasion: Present Nipple Involvement: DCIS involves nipple ducts Skin Involvement: Absent Skeletal Muscle: Not present Lymph Node Sampling: [place] lymph node(s) only Total number of lymph [...] to see MARCELINO with CHERRY Santa APRN ECTOR RECEIVING documented in this encounter Plan of Treatment Not on filedocumented as of this encounter Visit Diagnoses Diagnosis Malignant neoplasm of upper-outer quadr ant of left breast in female, estrogen receptor positive (HCC) documented in this encounter
--- OUTSIDE RECORDS SUMMARY | 2019-10-30 07:45 | XMS REPORT | Clinical Summary ---
Author Author [facility] Organization [facility] Address Unknown Phone Unavailable Care Team Providers Care Physician Office Secretary Name Role Phone Sameera Smith MD PCP Source Comments Some departments are not documenting in the electronic medical record. If you d o not see the information that you expected, contact Release of Information in [facility] [place] Information Management department at [phone] for further assistan ce in locating additional records.[facility] Allergies Comments Active Allergy Reactions Severity Noted [...] IB (cT2 , cN0, cM0, G2, ER+, NV+, HER2-) - Signed by Hannah Santa APRN on 2018 Pathologic: Stage IB (pT2, pN0(i+)(sn), cM0, G2, ER+, NV+, HER2-) - Signed by Hannah Santa APRN [...] findings was recommended. Pertinent PMH: Hx of ME in 2017 (stent placed), Hx of smoking 1 PPD x 43 years, hyperlipidemia, HTN, Type II DM. Full Stack Java Developer is Dr. Mathew in [place], [place] Family History: Sister with breast canc [...] supraclavicular adenopathy. Referred by: Dr. Sameera Smith Immunizations Name Administration Dates Next Due Flu [...] Comments Vital Sign 109/67 07/16/2019 1:59 PM BRAZER RESISTANCE Blood Pressure 79 07/16/2019 1:59 PM BRAZER RESISTANCE Pulse 36.8 C (98.2 F) 07/16/2019 1:59 PM BRAZER RESISTANCE Temperature 14 07/16/2019 1:59 PM BRAZER RESISTANCE Respiratory Rate 98% 07/16/2019 1:59 PM BRAZER RESISTANCE Oxygen Saturation - - Inhaled Oxygen Concentration 86.2 kg (190 lb) 07/16/2019 1:59 PM BRAZER RESISTANCE Weight 175.3 cm (5' 9.02") 07/16/2019 1:59 PM BRAZER RESISTANCE Height 28.05 07/16/2019 1:59 PM BRAZER RESISTANCE Body Mass Index Plan of Treatment Health Maintenance Due Date Last Done Comments HEPATITIS C SCREENING 1955 DTAP/TDAP VACCINES ( - 1966 Tdap) HIV SCREENING 1970 PHYSICAL (COMPREHENSIVE) 1973 EXAM CERVICAL CANCER SCREENING 02/12/1976 BREAST CANCER SCREENING 1995 COLORECTAL CANCER 2005 SCREENING SHINGLES RECOMBINANT 2005 VACCINE (1 of 2) INFLUENZA VACCINE Completed 07/07/2019 Results Not on filefrom Last 3 Months Insurance Type Payer Benefit Subscriber ID Effective Phone Address Plan / Dates Group AETNA MEDICAID AETNA xxxxxxxxxxx 2019- BETTER Present [facility] [place] [address] [facility] (Home) [place] [id number] Advance Directives Patient Knowledge Architect Explanation Type Date Recorded Advance 05/28/2019 9:50 AM Directive/DPOA Date Inactivated Comments Code Status Date Activated 07/07/2019 1:49 PM Full Code 07/06/2019 4:53 PM Provider has discussed Code Status No, more discussi on w/Patient or Family? needed
--- OUTSIDE RECORDS SUMMARY | 2019-10-30 07:45 | XMS REPORT | Encounter Summary ---
Author [facility] Address Unknown Phone Unavailable Care Team Providers Care Physical Meteorologist Name Role Phone Sameera Smith MD PCP Reason for Visit * Auth/Cert Referred By Contact Referred To Contact Status Reason Specialty Diagnoses / Procedures Diagnoses Malignant neoplasm of upper-outer quadrant of left female breast, unspecified estrogen receptor status (HCC) Malignant neoplasm of upper-outer quadrant of left female breast, unspecified estrogen receptor status (HCC) [C50.412] P rocedures MA MASTECTOMY SIMPLE COMPLETE MA INTRAOP SENTINEL LYMPH NODE ID W/DYE INJECTION MA INJ RADIOACTIVE TRACER FOR ID OF SENTINEL NODE MA BX/EXC LYMPH NODE OPEN DEEP AXILLARY NODE MA AXILLARY LYMPHADENECTOMY COMPLETE LEFT TOTAL MASTECTOMY IDENTIFICATION SENTINEL LYMPH NODE INJECTION RADIOACTIVE TRACER FOR SENTINEL NODE IDENTIFICATION LEFT SENTINEL LYMPH NODE BIOPSY POSSIBLE LEFT AXILLARY LYMPH NODE DISSECTION Encounter Details Care Team Description Date [place] [address] [place], [place] [address] 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, estrogen receptor positive (HCC) 07/06/2019 [facility] 07/07/2019 [address] [place], [place] [address] Social History Date Tobacco Use Types Packs/Day [...] Comments Vital Sign 110/58 07/07/2019 10:22 AM RESEARCH HYDROLOGIST Blood Pressure 67 07/07/2019 2:43 AM RESEARCH HYDROLOGIST Pulse 36.6 C (97.8 F) 07/07/2019 10:22 AM RESEARCH HYDROLOGIST Temperature - - Respiratory Rate 97% 07/07/2019 10:22 AM RESEARCH HYDROLOGIST Oxygen Saturation - - Inhaled Oxygen Concentration 86.7 kg (191 lb 2.2 oz) 07/06/2019 4:51 PM RESEARCH HYDROLOGIST Weight 175.3 cm (5' 9") 07/06/2019 10:40 AM RESEARCH HYDROLOGIST Height 28.23 07/06/2019 10:40 AM RESEARCH HYDROLOGIST Body Mass Index documented in this encounter [...] Jyothi Gonzáles RN - 07/07/2019 10:28 AM RESEARCH HYDROLOGIST Discharge instructions given to pt and famliy and pt demonstrated stripping and emptying [place]AL[place] drains. Belongings with pt and family and no home meds to return. IV dc'd and pt ambulated with staff to vehicle and transported home by family. ARCH HYDROLOGIST * Jyothi Gonzáles RN - 07/07/2019 7:48 AM RESEARCH HYDROLOGIST Pt assessment completed. Pt sitting up in chair and finished breakfast. Pt den ies pain. Drsg C/D/I and KALPANA patent. Pt has no other needs or complaints and up ad giancarlo. Call light within reach. ARCH HYDROLOGIST * Sameera Jackson PA-C - 07/07/2019 7:04 AM RESEARCH HYDROLOGIST Breast Surgery Progress Note A/P: 64 year [...] 07/07/19 0707/07/19 07 - 07/08/19 0700 Shift 4099-6705 7555-3348 24 Hour Total 6126-2442 3146-7391 24 Hour Total INTAKE P.O. 100 1900 [...] extremities Skin: no rashes Sameera Jackson PA-C ARCH HYDROLOGIST * Molly Vasquez RN - 07/06/2019 7:15 PM RESEARCH HYDROLOGIST Patient assessment completed and documented in the [...] continue to monitor patient throughout the shift. ARCH HYDROLOGIST * Mary Petty, RT - 07/06/2019 5:18 PM RESEARCH HYDROLOGIST RT Adult Assessment Note NAME:Jeffry Dye :1955 [...] Sounds: Clear (implies normal) Respiratory Effort: Non-Labored ARCH HYDROLOGIST * Miladys Roger RN - 06/24/2019 8:42 AM RESEARCH HYDROLOGIST Phone triage assessment not completed as PAC indicated and scheduled for 07-01-19 at 1300. She has history of SD resulting in stenting [address] Kwame Mathew in [place], [place]. Also current smoker,HTN,HLD and DM. GIUSEPPE sent. Un derstands instructions and arrival times. ARCH HYDROLOGIST documented in this encounter H&P Notes * Rae Olivo MD - 07/06/2019 6:38 AM RESEARCH HYDROLOGIST Breast Surgery History and Physical Examination 07/06/2019 [...] findings was recommended. Pertinent PMH: Hx of SD in 2017 (stent placed), Hx of smoking 1 PPD x 43 years, hyperlipidemia, HTN, Type II DM. Tracing Lathe Set Up Operator is Dr. Mathew in [place], [place] Family History: Sister with breast cancer [...] tums prn Heart disease HTN (hypertension) Hyperlipidemia SD (myocardial infarction) (HCC) 2017 stent placed Type [...] last 72 hours. Melissa Fuentes MD Pager: [phone] I reviewed the R/B/A for the operation with the patient, who signed consent and agrees to proceed. Rea Olivo MD ARCH HYDROLOGIST documented in this encounter Miscellaneous Notes * Care Plan - Molly Vasquez RN - 07/06/2019 8:11 PM RESEARCH HYDROLOGIST Will continue to follow plan of care. ARCH HYDROLOGIST * Care Plan - Mallorie Rodriguez RN - 07/06/2019 5:41 PM RESEARCH HYDROLOGIST Assessment is done, documented. care plan initiated. ARCH HYDROLOGIST * Operative Report (Direct Entry) - Rea Olivo MD - 07/06/2019 12:30 PM RESEARCH HYDROLOGIST Operative Report Surgery Date: 07/06/2019 Incision/Procedure Start Time: 1:25pm Incision Close/Procedure End Time: 2:43 PM Procedure Performed: Left Simple Mastectomy Left breast injection of dye for lymphatic mapping Left sentinel lymph node Surgeon(s) and Senior Engineering Team Leader(s): Surgeon(s) and Role: * Rea Olivo MD [...] Stage IB (cT2, cN0, cM0, G2, ER+, MA+, HER2-) - Signed by Herbert Santa APRN [...] SHORT STITCH SUPERIOR LONG STITCH LATERAL Tissue [place] [address],Left SURGICAL PATHOLOGY Rea Olivo MD 07/06/2019 1358 2 : LEFT AXILLARY SENTINEL LYMPH NODE #1 Tissue Axilla SURGICAL PATHOLOGY Rea Olivo MD 07/06/2019 1407 Drains: two left anterior chest wall Complications: none I personally performed the entire procedure with assistance. SIGNATURE: Rea Olivo MD PATIENT NAME: Jeffry Dye DATE: July 06, 2019 TIME: 2:43 PM ARCH HYDROLOGIST documented in this encounter Plan of Treatment Order Schedule Name Type Priority Associated Diag noses ONE TIME for 1 Occurrences starting 03/2019 until 07/06/2019, 1 completed BREAST SPEC PATH ONLY/NO Imaging Routine RAD READ documented as of this encounter Procedures Comments Procedure Name Priority Date/Time Associated Diag nosis POC GLUCOSE 07/07/2019 7:36 AM RESEARCH HYDROLOGIST POC GLUCOSE 07/06/2019 10:09 PM RESEARCH HYDROLOGIST POC GLUCOSE 07/06/2019 5:49 PM RESEARCH HYDROLOGIST POC GLUCOSE 07/06/2019 3:32 PM RESEARCH HYDROLOGIST HC FROZEN SECTION #1 Routine 07/06/2019 Malignant neoplasm of 1:58 PM RESEARCH HYDROLOGIST upper-outer quadrant of left female breast, unspecified estrogen receptor status (HCC) BIOPSY/ EXCISION LYMPH 07/06/2019 Malignant neop lasm of NODE DEEP AXILLARY 1:05 PM RESEARCH HYDROLOGIST upper-outer quadra nt of left female breast, unspecified estrogen receptor status (HCC) INJECTION RADIOACTIVE 07/06/2019 Malignant neopl asm of TRACER FOR SENTINEL NODE 1:05 PM RESEARCH HYDROLOGIST upper-outer quadrant of IDENTIFICATION left female breast, unspecified estrogen receptor status (HCC) IDENTIFICATION SENTINEL 07/06/2019 Malignant juan carlos plasm of LYMPH NODE 1:05 PM RESEARCH HYDROLOGIST upper-outer quadran t of left female breast, unspecified estrogen receptor status (HCC) MASTECTOMY - COMPLETE - 07/06/2019 Malignant juan carlos plasm of SIMPLE 1:05 PM RESEARCH HYDROLOGIST upper-outer quadran t of left female breast, unspecified estrogen receptor status (HCC) BREAST SPEC PATH ONLY/NO Routine 07/06/2019 RAD READ 11:35 AM RESEARCH HYDROLOGIST POC GLUCOSE 07/06/2019 11:18 AM RESEARCH HYDROLOGIST TUMOR PROGNOSTIC MARKERS 07/06/2019 SCAN 12:00 AM RESEARCH HYDROLOGIST TELEMETRY STRIPS-SCAN 07/06/2019 12:00 AM RESEARCH HYDROLOGIST documented in this encounter Results * POC GLUCOSE (07/07/2019 7:36 AM RESEARCH HYDROLOGIST) Glucose, POC 143 (H) 70 - 100 MG/DL MAIN LAB Specimen Performing Organization Address [facility] Ph one Number MAIN LAB [address] [place] [address] * POC GLUCOSE (07/06/2019 10:09 PM RESEARCH HYDROLOGIST) Glucose, POC 170 (H) 70 - 100 MG/DL MAIN LAB Specimen Performing Organization Address [facility] Number MAIN LAB [address] [place] [address] * POC GLUCOSE (07/06/2019 5:49 PM RESEARCH HYDROLOGIST) Glucose, POC 196 (H) 70 - 100 MG/DL MAIN LAB Specimen Performing Organization Address [facility] Ph [facility] Number MAIN LAB [address] [place] [address] * POC GLUCOSE (07/06/2019 3:32 PM RESEARCH HYDROLOGIST) Glucose, POC 144 (H) 70 - 100 MG/DL MAIN LAB Specimen Performing Organization Address City/State/Zipcode Ph one Number MAIN LAB [address] [place] [address] * SURGICAL PATHOLOGY (07/06/2019 1:58 PM RESEARCH HYDROLOGIST) PATHOLOGY [facility] [email or web address] Department of Pathology and Laboratory Medicine [address] [place] [address] Surgical Pathology Office: [phone] SURGICAL PATHOLOGY REPORT NAME: JEFFRY DYE SURG PATH #: [id number] MR #: [id number] SPECIMEN CLASS: SI BILLING #: [id number] ALT ID #: LOCATION: IC3 DATE OF [...] 95% Positive Stain Intensity: Strong Progesterone Receptor (MA): 91% Positive Stain Intensity: Strong Her2: 0 Negative Ki-67 10% Testing performed on block Number: A40 (10:00 Nodule) Estrogen Receptor (ER): 97% Positive Stain Intensity: Strong Progesterone Receptor (MA): <1% Negative Stain Intensity: Not Applicable Note: Internal control cells present and stain as expected. Her2: 0 Negative Ki-67 9% The original image analysis report is scanned in [email or web address] under Results Review. Disclaimer: [facility] is certified under the Clinical Laboratory Improvement Amendments of 1988 (CLIA) to perform high complexity clinical laboratory testing. The Food and Drug Administration (FDA) cleared estrogen receptor/progesterone receptor (ER/MA) assays and the FDA approved Her2 assay are performed on formalin-fixed, paraffin-embedded tissue sections using the Beach Benchmark Ultraview [place] DAB detection kit with Beach Confirm ER antibody (clone SP1), Beach Confirm MA antibody (clone [id number]), and Beach Pathway Her2/luis e antibody (clone [id number]). Ki-67 is performed using Dako Flex Ki-67 antibody (clone MIB-1) with Dako Flex Dab detection kit on autostainer Link 48. Interpretations of the ER/MA and Her2 results follow the most current [place] Society of Clinical Oncology/College of [place] Pathologists (ASCO/CAP) guidelines. Known positive and negative control tissues show appropriate staining. Cold ischemic time and formalin fixation time of the tissue meet the ASCO/CAP requirements unless noted in the original pathology report. This assay has not been validated on decalcified tissues. The image analysis is performed using WinningAdvantage Image Analysis system (v5.6.2). CLARISA ARIZMENDI MD [...] cm from the deep margin Histologic Grade (Rhodhiss Histologic Score) (all foci of invasive ductal carcinoma): II/III Tubule Formation: 3 Nuclear Grade: 2 Mitotic Count (40x objective): 1 Total Sebastien Score: 6/9 Histologic Grade (Rhodhiss Histologic Score) (all foci of invasive lobular carcinoma): II/III Tubule Formation: 3 Nuclear Grade: 2 Mitotic Count (40x objective): 1 Total Rhodhiss Score: 6/9 Ductal Carcinoma In-situ (DCIS): Present Extensive intraductal component (>25%): Present, approximately 5.0 cm in greatest dimension DCIS within and/or adjacent to invasive carcinoma: Yes DCIS separate from invasive carcinoma: Yes Lobular Carcinoma In-situ (LCIS): Present Lymph-Vascular Invasion: Present Nipple Involvement: DCIS involves nipple ducts Skin Involvement: Absent Skeletal Muscle: Not present Lymph Node Sampling: [place] lymph node(s) only Total number of lymph [...] Lesion location 3:00 Metallic clip identified: Yes, [place] clip Uninvolved breast parenchyma: 90% lobular nagy-yellow with 10% fibrous [id number] breast parenchyma Tissue sent to the Bios[facility] Repository Core Facility: No The deep resection margin is inked black Axillary dissection attached: No Certified Ophthalmic Assistant sections of the specimen are submitted as follows: A1 Certified Ophthalmic Assistant sections of the upper outer quadrant. A2 Certified Ophthalmic Assistant sections of the lower outer quadrant. A3 Certified Ophthalmic Assistant sections of the lower inner quadrant. A4 Certified Ophthalmic Assistant sections of the upper inner quadrant. A5 Certified Ophthalmic Assistant section of skin closest to the lesion. [...] [facility]/07/06/2019 Intraoperative Consultation: [id number], lymph nodes (4), "left axillary sentinel lymph node #1", excision: Negative for malignancy. Frozen section performed at the [facility], [address], [place] [address]. MONROE FRYE MD If immunohistochemical stains and/or in situ hybridization are cited in this report, the performance characteristics were determined by the Department of Pathology and Laboratory Medicine of the [facility] ([employer]) in compliance with CLIA'88 [...] of Pathology and Laboratory Medicine of the [facility]. It has not been cleared or approved by the FDA. The FDA has determined that such clearance or approval is not necessary. Specimen Tissue - Breast,Left Tissue - Axilla Performing Organization Address [facility] one Number MAIN LAB [address] [place] [address] * BREAST SPEC PATH ONLY/NO RAD READ (07/06/2019 11:35 AM RESEARCH HYDROLOGIST) Specimen Narrative Performed At This order has been auto finalized and does not conta in a result. [facility] RAD MAMMO Performing Organization Address [facility] Ph one Number RAD MAMMO * POC GLUCOSE (07/06/2019 11:18 AM RESEARCH HYDROLOGIST) Glucose, POC 115 (H) 70 - 100 MG/DL MAIN LAB Specimen Performing Organization Address [facility] Ph one Number MAIN LAB [address] [place] [address] * TELEMETRY STRIPS-SCAN (07/06/2019 12:00 AM RESEARCH HYDROLOGIST) Narrative Performed At This result has an attachment that is n ot available. Ordered by an unspecified provider. * TUMOR PROGNOSTIC MARKERS SCAN (07/06/2019 12:00 AM RESEARCH HYDROLOGIST) Narrative Performed At This result has an [...] Medication Order MAR Action 07/06/2019 8:56 PM RESEARCH HYDROLOGIST 20 mg atorvastatin (LIPITOR) tablet 20 mg Given 20 mg, Oral, AT BEDTIME DAILY, First dose on Sat07/06/19 at 2100, Until Discontinued 07/06/2019 4:19 PM RESEARCH HYDROLOGIST 50 mcg fentaNYL citrate PF (SUBLIMAZE) Given injection 50 mcg 50 mcg, Intravenous, EVERY 5 MIN PRN, Starting Sat07/06/19 at 1502, Until Sat07/06/19 at 1646, Pain Injectable, For Pain Score 4-6, Maximum total dose 200 mcg Hold if RR < 10, PACU (only) 50 mcg Given 07/06/2019 3:52 PM RESEARCH HYDROLOGIST 50 mcg Given 07/06/2019 3:46 PM RESEARCH HYDROLOGIST 07/07/2019 8:57 AM RESEARCH HYDROLOGIST 0.5 mL Deltoid, Right influenza (=>6 MO)(QUADrivalent) [...] - NOTE: If dose unavailable , send Infor; to (do) Centerset message to pharmacy, 07/06/2019 2:40 PM RESEARCH HYDROLOGIST lactated ringers infusion Given - New 1,000 mL, 1,000 mL, Intravenous, at 20 Bag mL/hr, CONTINUOUS, Starting Sat07/06/19 at 1030, Until Sat07/06/19 at 1653, Pre-Op 1,000 mL 20 mL/hr Given - New Bag 07/06/2019 10:50 AM RESEARCH HYDROLOGIST 07/07/2019 8:56 AM RESEARCH HYDROLOGIST 2.5 mg lisinopril (ZESTRIL) tablet 2.5 mg Given 2.5 mg, Oral, DAILY, First dose on Sat07/07/19 at 0900, Until Discontinued 07/06/2019 5:46 PM RESEARCH HYDROLOGIST 2 mg morphine injection 2-4 mg Given 2-4 mg, Intravenous, EVERY 2 HOURS PRN , Starting Sat07/06/19 at 1653, Until Sat07/07/19 at 1343, Pain Injectable 07/07/2019 4:13 AM RESEARCH HYDROLOGIST 5 mg oxyCODONE (ROXICODONE) tablet 5-10 mg Given 5-10 mg, Oral, EVERY 6 HOURS PRN, Starting Sat07/06/19 at 1653, Until Sat07/07/19 at 1343, Pain PO 07/07/2019 8:57 AM RESEARCH HYDROLOGIST 1 tablet senna/docusate (SENOKOT-S) tablet 1 Given tablet 1 tablet, Oral, TWICE DAILY, First dose on Sat07/06/19 at 2100, Until Discontinued, Hold for loose stools, 1 tablet Given 07/06/2019 8:56 PM RESEARCH HYDROLOGIST 07/06/2019 7:12 PM RESEARCH HYDROLOGIST 100 mL/hr sodium chloride 0.45 % with KCl 20 Dose/Rate mEq/L infusion Verify 1,000 mL, Intravenous, at 100 mL/hr, CONTINUOUS, Starting Sat07/06/19 at 1700, Until Sat07/07/19 at 1343, Lock IV fluids after patient tolerating oral intake., 100 mL/hr Given - New Bag 07/06/2019 5:23 PM RESEARCH HYDROLOGIST documented in this encounter
--- OUTSIDE RECORDS SUMMARY | 2019-10-30 07:45 | XMS REPORT | Encounter Summary ---
Author Author [facility] Organization [facility] Address Unknown Phone Unavailable Care Team Providers Care Metal Handler Name Role Phone Sameera Smith MD PCP Encounter Details Care Team Description Date [place] [address] [place], [place] [address] 07/20/2019 Documentation [facility] [address] [id number] Social History Date Tobacco Use Types Packs/Day [...] Katy Frank, BRIAN - 07/20/2019 3:01 PM AIRCONDITIONING ENGINEER Pt here today for nurse only drain [...] 07/20/2019 Complications: none Removal Reason: Clinically Indicated ONDITIONING ENGINEER documented in this encounter Plan of Treatment Not on filedocumented as of this encounter Visit Diagnoses Not on filedocumented in this encounter
--- OUTSIDE RECORDS SUMMARY | 2019-10-30 07:45 | XMS REPORT | Encounter Summary ---
Author Author [facility] Organization [facility] Address Unknown Phone Unavailable Care Team Providers Care Head Housekeeper Name Role Phone Sameera Smith MD PCP Reason for Visit * Reason Comments Surgical Followup drain removal Encounter Details Care Team Description Date [place] [address] [place] [address] [phone] Surgical Followup (drain removal) 07/20/2019 Telephone [facility] [address] [phone] Social History Date Tobacco Use Types Packs/Day [...] Katy Frank RN - 07/20/2019 11:28 AM UNIVERSITY RELATIONS VICE PRESIDENT Pt called back to inform RN that she would like to come today at 2 for drain rem oval as she does have a ride now. Informed pt that this would be fine, and we'll see her today at 2. Location details reviewed. Pt verbalized understanding, agr ees to plan, and denies further questions/ needs at this time. Pt has contact in formation. ERSITY RELATIONS VICE PRESIDENT * Telephone Encounter - Katy Frank RN - 07/20/2019 10:18 AM UNIVERSITY RELATIONS VICE PRESIDENT Called pt to follow up on KALPANA [...] at this time. Pt has contact information. ERSITY RELATIONS VICE PRESIDENT documented in this encounter Plan of Treatment Not on filedocumented as of this encounter Visit Diagnoses Not on filedocumented in this encounter
--- OUTSIDE RECORDS SUMMARY | 2019-10-30 07:46 | XMS REPORT | Encounter Summary ---
Author Author [facility] Organization [facility] Address Unknown Phone Unavailable Care Team Providers Care Art Consultant Name Role Phone Sameera Smith MD PCP Reason for Referral * Radiology Services (Routine) Referred By Contact Referred To Contact Status Reason Specialty Diagnoses / [place] [address] [place] [address] Ic1 Nuclear Med [id number] [place] [address] No Auth Needed Radiology Diagnoses Malignant neoplasm of upper-outer quadrant of left breast in female, estrogen receptor positive (HCC) P rocedures MAMMO LYMPH NODE INJ RADIOTRACER LT (OR) Encounter Details Care Team Description Date [place] [address] [place] [address] [phone] 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, estrogen receptor positive (HCC) (Primary Dx) 06/23/2019 Orders Only [facility] [address] [phone] Social History Date Tobacco Use Types Packs/Day [...] INJ RADIOTRACER LT (OR) (07/06/2019 7:10 AM MACHINE FEED OPERATOR) Specimen Narrative Performed At This order has been auto finalized and does not conta in a result. [facility] RAD MAMMO Performing Organization Address City/State/Zipcode Ph one Number [facility] RAD MAMMO documented in this encounter Visit Diagnoses Diagnosis Malignant neoplasm of upper-outer quadr ant of left breast in female, estrogen receptor positive (HCC) documented in this encounter
--- OUTSIDE RECORDS SUMMARY | 2019-10-30 07:46 | XMS REPORT | Encounter Summary ---
Author Author [facility] Organization [facility] Address Unknown Phone Unavailable Care Team Providers Care Government Property Inspector Name Role Phone Sameera Smith MD PCP Reason for Visit * Auth/Cert Referred By Contact Referred To Contact Status Reason Specialty Diagnoses / Procedures Diagnoses Malignant neoplasm of upper-outer quadrant of left female breast, unspecified estrogen receptor status (HCC) Malignant neoplasm of upper-outer quadrant of left female breast, unspecified estrogen receptor status (HCC) [C50.412] P rocedures CO MASTECTOMY SIMPLE COMPLETE CO INTRAOP SENTINEL LYMPH NODE ID W/DYE INJECTION CO INJ RADIOACTIVE TRACER FOR ID OF SENTINEL NODE CO BX/EXC LYMPH NODE OPEN DEEP AXILLARY NODE CO AXILLARY LYMPHADENECTOMY COMPLETE LEFT TOTAL MASTECTOMY IDENTIFICATION SENTINEL LYMPH NODE INJECTION RADIOACTIVE TRACER FOR SENTINEL NODE IDENTIFICATION LEFT SENTINEL LYMPH NODE BIOPSY POSSIBLE LEFT AXILLARY LYMPH NODE DISSECTION Encounter Details Care Team Description [place] [address] [place], [place] [id number] Sameera Salter CRNA [address] [place], [place] [id number] 07/06/2019 Anesthesia [facility] [place] [address] [place] [address] Anesthesia Record Responsible Anesthesiologist Anesthesia Start Time [...] ic Airway LMA; 4; 1 insertion attempt; BambergSameera Stevenson, Auscultation, End-tidal CO2 GRAB HOOKER [place] 07/06/19; 1424; Left; Chest; 15 FR; #1 [...] Cynthia Yang MD - 07/06/2019 5:38 PM FINISHER DENTURE Post-Anesthesia Evaluation Name: Ximena William : 1955 [...] Perioperative Event: No Emergency Case Activation: No SHER DENTURE * Anesthesia Preprocedure Evaluation - Noah Rosenbaum MD - 07/01/2019 1:03 PM FINISHER DENTURE Anesthesia Pre-Procedure Evaluation Name: Ximena William : [...] tums prn Heart disease HTN (hypertension) Hyperlipidemia SC (myocardial infarction) ([facility]) 2017 stent placed Type II diabetes mellitus ([facility]) Surgical History: Procedure Laterality Date BREAST SURGERY [...] Adelaida therapy: No Hypertension, well controlled Past SC, > 6 months PTCA (stent x 1-RCA 10/02/2016) Palpitations (pt reports "fluttering" occasionally-not new symptom and Cardi ologist is aware of this) PVD (bilateral carotid artery stenosis-monitored by Production Control Technologist. Pt states it is mild and not enough stenosis to warrant surgical intervention. Taking A, Plavix and statin) Hyperlipidemia (statin) Dyspnea on exertion (heavy exertion) Plavix and ASA daily Pt follows with Production Control Technologist, Dr. Mathew in [place], [place]-last OV 06/04/2019. D enies changes in [...] risks discussed with patient. Plan discussed with: GRAB HOOKER and surgeon/proceduralist. EKG: SR rate 67 bpm [...] her cardiac risk and she verbalizes understanding." SHER DENTURE documented in this encounter Plan of Treatment Not on filedocumented as of this encounter Visit Diagnoses Not on filedocumented in this encounter Administered Medications Action Date Dose Rate Site Medication Order MAR Action 07/06/2019 1:13 PM FINISHER DENTURE 2 g ceFAZolin (ANCEF) IVP 2 g Given 2 g, Intravenous, ONCE, 1 dose, 07/06/19 at 1030, Give Pre-Op < 60 minutes prior to first incision. Re-dos e every 4 hrs while in procedure (Given i n OR). IV PUSH -- RECONSTITUTE each 1 g vial by adding 10 mL 0.9% NACL, for patients < 120 kg, Pre-Op 07/06/2019 1:12 PM FINISHER DENTURE 10 mg dexamethasone (DECADRON) injection Given Intravenous, INTRA-PROCEDURE MED, Starting Sat07/06/19 at 1312, Until Sat07/06/19 at 1528, Anesthesia Intra-op 07/06/2019 1:08 PM FINISHER DENTURE 25 mg diphenhydrAMINE (BENADRYL) injection Given INTRA-PROCEDURE MED, Starting Sat07/06/19 at 1308, Until Sat07/06/19 at 1528, Anesthesia Intra-op 07/06/2019 1:21 PM FINISHER DENTURE 5 mg ePHEDrine injection Given INTRA-PROCEDURE MED, Starting Sat07/06/19 at 1321, Until Sat07/06/19 at 1528, Anesthesia Intra-op 07/06/2019 1:08 PM FINISHER DENTURE 20 mg famotidine (PEPCID) injection Given INTRA-PROCEDURE MED, Starting Sat07/06/19 at 1308, Until Sat07/06/19 at 1528, Anesthesia Intra-op 07/06/2019 2:33 PM FINISHER DENTURE 25 mcg fentaNYL citrate PF (SUBLIMAZE) Given injection INTRA-PROCEDURE MED, Starting Sat07/06/19 at 1309, Until Sat07/06/19 at 1528, Anesthesia Intra-op 25 mcg Given 07/06/2019 2:18 PM FINISHER DENTURE 50 mcg Given 07/06/2019 1:54 PM FINISHER DENTURE 07/06/2019 2:40 PM FINISHER DENTURE lactated ringers infusion Given - New 1,000 mL, 1,000 mL, Intravenous, at 20 Bag mL/hr, CONTINUOUS, Starting Sat07/06/19 at 1030, Until Sat07/06/19 at 1653, Pre-Op 1,000 mL 20 mL/hr Given - New Bag 07/06/2019 10:50 AM FINISHER DENTURE 07/06/2019 1:09 PM FINISHER DENTURE 80 mg lidocaine (PF) injection Given INTRA-PROCEDURE MED, Starting Sat07/06/19 at 1309, Until Sat07/06/19 at 1528, Anesthesia Intra-op 07/06/2019 1:04 PM FINISHER DENTURE 2 mg midazolam (VERSED) injection Given Intravenous, INTRA-PROCEDURE MED, Starting Sat07/06/19 at 1304, Until Sat07/06/19 at 1528, Anesthesia Intra-op 07/06/2019 2:22 PM FINISHER DENTURE 4 mg ondansetron (ZOFRAN) injection Given Intravenous, INTRA-PROCEDURE MED, Starting Sat07/06/19 at 1422, Until Sat07/06/19 at 1528, Anesthesia Intra-op 07/06/2019 1:09 PM FINISHER DENTURE 150 mg propofol (DIPRIVAN) injection Given INTRA-PROCEDURE MED, Starting Sat07/06/19 at 1309, Until Sat07/06/19 at 1528, Anesthesia Intra-op documented in this encounter
--- OUTSIDE RECORDS SUMMARY | 2019-10-30 07:46 | XMS REPORT | Encounter Summary ---
Author Author [facility] Organization [facility] Address Unknown Phone Unavailable Care Team Providers Care Studio Operations Manager Name Role Phone Sameera Smith MD PCP Reason for Referral * Radiology Services (Routine) Referred By Contact Referred To Contact Status Reason Specialty Diagnoses / Procedures Ella Millan APRN-NP [address] [place] [address] [facility] [address] [place] [phone] No Auth Needed Radiology Diagnoses At risk for osteopenia P rocedures BONE DENSITY SPINE/HIP Reason for Visit * Radiology Services (Routine) Referred By Contact Referred To Contact Status Reason Specialty Diagnoses / Procedures Ella Millan APRN-NP [address] [place] [address] [facility] [address] [place] [phone] No Auth Needed Radiology Diagnoses At risk for osteopenia P rocedures BONE DENSITY SPINE/HIP Encounter Details Care Team Description Date Type Department Ella Millan APRN-NP [address] [place] [address] [phone] 06/29/2019 [facility] [address] [place] [id number] Social History Date Tobacco Use Types Packs/Day [...] (FISH OIL PO) mouth. 07/01/2019 mv,with 0 Fa-dyco-BR-lut-179herb (WOMENS MULTIVITAMIN HI POTENCY) 13.5-200-250 mg-mcg-mcg tab documented as of this encounter Plan of Treatment Not on filedocumented as of this encounter Procedures Comments Procedure Name Priority Date/Time Associated Diag nosis BONE DENSITY SPINE/HIP Routine 06/29/2019 At risk for osteopenia 8:05 AM PULLER THROUGH documented in this encounter Results * BONE DENSITY SPINE/HIP (06/29/2019 8:05 AM PULLER THROUGH) Specimen Impressions Performed At Normal bone mineral [...] spine and bilateral hips were performed with [employer] Lumbar spine and hip with lowest T-score [...] below) *Based on region with lowest bone school examiner al density. Procedure Note Interface, Radiant Results - 06/29/2019 8:41 AM PULLER THROUGH BONE DENSITOMETRY CLINICAL INDICATION: 64 year old female, breast cancer, bone health, at risk for osteopenia COMPARISON: None FINDINGS: DEXA scan of the lumbar spine and bilateral hips were performed with [employer] Lumbar spine and hip with lowest T-score [...]
--- OUTSIDE RECORDS SUMMARY | 2019-10-30 07:46 | XMS REPORT | Encounter Summary ---
Author Author [facility] Organization [facility] Address Unknown Phone Unavailable Care Team Providers Care Wheel Press Operator Name Role Phone Sameera Smith MD PCP Reason for Visit * Radiology Services (Routine) Referred By Contact Referred To Contact Status Reason Specialty Diagnoses / Procedures Ella Millan APRN-NP [address] [place] [address] Nuclear [address] [place] [phone] No Auth Needed Radiology Diagnoses Infiltrating ductal carcinoma of left breast (HCC) Elevated alkaline phosphatase level P rocedures NM BONE SCAN WHOLEBODY Encounter Details Care Team Description Date Type Department Ella Millan APRN-NP [address] [place], [place] [id number] 06/29/2019 [facility] [address] [id number] Social History Date Tobacco Use Types Packs/Day [...] (FISH OIL PO) mouth. 07/01/2019 mv,with 0 Mi-lnmg-BD-lut-179herb (WOMENS MULTIVITAMIN HI POTENCY) 13.5-200-250 mg-mcg-mcg tab documented as of this encounter Plan of Treatment Not on filedocumented as of this encounter Procedures Comments Procedure Name Priority Date/Time Associated Diag nosis NM BONE SCAN WHOLEBODY Routine 06/29/2019 Infiltr ating ductal 11:39 AM REBAR WORKER carcinoma of left breast (HCC) Elevated alkaline phosphatase level documented in this encounter Results * NM BONE SCAN WHOLEBODY (06/29/2019 11:39 AM REBAR WORKER) Specimen Impressions Performed At 1. No scintigraphic [...] Interface, Radiant Results - 06/29/2019 5:34 PM REBAR WORKER BONE SCINTIGRAPHY (WHOLE-BODY) Radiopharmaceutical: 26.7 mCi IV [...]
--- OUTSIDE RECORDS SUMMARY | 2019-10-30 07:46 | XMS REPORT | Encounter Summary ---
Author Author [facility] Organization [facility] Address Unknown Phone Unavailable Care Team Providers Care Cupola Melting Supervisor Name Role Phone Sameera Smith MD PCP Reason for Visit * Reason Comments Surgery confirmation Encounter Details Care Team Description [place] [address] [place] [address] [phone] Surgery (confirmation) 06/09/[address] [facility] [address] [phone] Social History Date Tobacco Use Types Packs/Day [...] Katy Frank RN - 06/09/2019 1:07 PM HOTEL GENERAL MANAGER Called to to state that we noticed [...] she would receive a call from the [facility] the day prior to surgery to confirm time of arrival. The patie nt was given detailed instructions about where and when to check in the day of [facility]. A pre op packet describing the surgical [...] befo re surgery. Also informed that a mail truck driver will need to accompany pt due [...] to call with any questions or concerns. L GENERAL MANAGER documented in this encounter Plan of Treatment Not on filedocumented as of this encounter Visit Diagnoses Not on filedocumented in this encounter
--- OUTSIDE RECORDS SUMMARY | 2019-10-30 07:46 | XMS REPORT | Encounter Summary ---
Author Author [facility] Organization [facility] Address Unknown Phone Unavailable Care Team Providers Care Millroom Supervisor Name Role Phone Sameera Smith MD PCP Reason for Visit * Reason Comments Results MRI Encounter Details Care Team Description [place] [address] [place] [address] Results (MRI) 06/01/2019 Telephone [facility] [address] [place] [address] Social History Date Tobacco Use [...] Katy Frank RN - 06/01/2019 11:18 AM FRENCH TEACHER Called patient with results of breast MRI [...] has contact information. Study Result Breast cancer [id number] MRI BREAST BILAT W/O W CONTRAST: MAY 28, 2019 - Technologists: Alicja Modi, supervisor electronics assembly; Xuan Wagner Prior study comparison: April 29, [...] signed and approved by: Seng Zambrano M.D. [id number] IMPRESSION ACR BI-RADS Assessments: BIRAD 6-Known biopsy proven malignancy RECOMMENDATION: Follow-up with your physician of the left breast. CH TEACHER documented in this encounter Plan of Treatment Not on filedocumented as of this encounter Visit Diagnoses Not on filedocumented in this encounter
--- OUTSIDE RECORDS SUMMARY | 2019-10-30 07:46 | XMS REPORT | Encounter Summary ---
Author Author [facility] Organization [facility] Address Unknown Phone Unavailable Care Team Providers Care Roller Embosser Name Role Phone Sameera Smith MD PCP Encounter Details Care Team Description [place] [address] [place] [address] Malignant neoplasm of upper-outer quadra [...]
--- OUTSIDE RECORDS SUMMARY | 2019-10-30 07:46 | XMS REPORT | Encounter Summary ---
Author Author [facility] Organization [facility] Address Unknown Phone Unavailable Care Team Providers Care Epic Cadence Specialists Name Role Phone Sameera Smith MD PCP Reason for Visit * Auth/Cert Referred By Contact Referred To Contact Status Reason Specialty Diagnoses / Procedures Diagnoses Malignant neoplasm of upper-outer quadrant of left female breast, unspecified estrogen receptor status (HCC) Malignant neoplasm of upper-outer quadrant of left female breast, unspecified estrogen receptor status (HCC) [C50.412] P rocedures TN MASTECTOMY SIMPLE COMPLETE TN INTRAOP SENTINEL LYMPH NODE ID W/DYE INJECTION TN INJ RADIOACTIVE TRACER FOR ID OF SENTINEL NODE TN BX/EXC LYMPH NODE OPEN DEEP AXILLARY NODE TN AXILLARY LYMPHADENECTOMY COMPLETE LEFT TOTAL MASTECTOMY IDENTIFICATION SENTINEL LYMPH NODE INJECTION RADIOACTIVE TRACER FOR SENTINEL NODE IDENTIFICATION LEFT SENTINEL LYMPH NODE BIOPSY POSSIBLE LEFT AXILLARY LYMPH NODE DISSECTION Encounter Details Care Team Description [place] [address] [place] [address] LEFT TOTAL MASTECTOMY 07/06/2019 Surgery [facility] [place] [address] [place] [address] Social History Date Tobacco Use Types Packs/Day [...] Comments Vital Sign 110/58 07/07/2019 10:22 AM WET SUIT GLUER Blood Pressure 67 07/07/2019 2:43 AM WET SUIT GLUER Pulse 36.6 C (97.8 F) 07/07/2019 10:22 AM WET SUIT GLUER Temperature - - Respiratory Rate 97% 07/07/2019 10:22 AM WET SUIT GLUER Oxygen Saturation - - Inhaled Oxygen Concentration 86.7 kg (191 lb 2.2 oz) 07/06/2019 4:51 PM WET SUIT GLUER Weight 175.3 cm (5' 9") 07/06/2019 10:40 AM WET SUIT GLUER Height 28.23 07/06/2019 10:40 AM WET SUIT GLUER Body Mass Index documented in this encounter [...] as of this encounter Progress Notes * Jyotih Gonzáles RN - 07/07/2019 10:28 AM WET SUIT GLUER Discharge instructions given to pt and famliy and pt demonstrated stripping and emptying [place] drains. Belongings with pt and family and no home meds to return. IV dc'd and pt ambulated with staff to vehicle and transported home by family. SUIT GLUER * Jyothi Gonzáles RN - 07/07/2019 7:48 AM WET SUIT GLUER Pt assessment completed. Pt sitting up in chair and finished breakfast. Pt den ies pain. Drsg C/D/I and KALPANA patent. Pt has no other needs or complaints and up ad giancarlo. Call light within reach. SUIT GLUER * Sameera Jackson PA-C - 07/07/2019 7:04 AM WET SUIT GLUER Breast Surgery Progress Note A/P: 64 year [...] 0700 07/07/19 0701 - 07/08/19 0700 Shift 0531-6405 1412-3943 24 Hour Total 6600-2640 8135-3004 24 Hour Total INTAKE P.O. 100 1900 [...] extremities Skin: no rashes Sameera Jackson PA-C SUIT GLUER * Molly Vasquez RN - 07/06/2019 7:15 PM WET SUIT GLUER Patient assessment completed and documented in the [...] continue to monitor patient throughout the shift. SUIT GLUER * Mary Petty, RT - 07/06/2019 5:18 PM WET SUIT GLUER RT Adult Assessment Note NAME:Jeffry Dye :1955 [...] Sounds: Clear (implies normal) Respiratory Effort: Non-Labored SUIT GLUER * Miladys Roger RN - 06/24/2019 8:42 AM WET SUIT GLUER Phone triage assessment not completed as PAC indicated and scheduled for 07-01-19 at 1300. She has history of UT resulting in stenting [address] Kwame Mathew in [place], [place]. Also current smoker,HTN,HLD and DM. GIUSEPPE sent. Un derstands instructions and arrival times. SUIT GLUER documented in this encounter H&P Notes * Rea Olivo MD - 07/06/2019 6:38 AM WET SUIT GLUER [facility] Breast Surgery History and Physical Examination [...] findings was recommended. Pertinent PMH: Hx of UT in 2017 (stent placed), Hx of smoking 1 PPD x 43 years, hyperlipidemia, HTN, Type II DM. Fare Collector is Dr. Mathew in [place], [place] Family History: Sister with breast cancer [...] tums prn Heart disease HTN (hypertension) Hyperlipidemia UT (myocardial infarction) (HCC) 2017 stent placed Type [...] last 72 hours. Melissa Fuentes MD Pager: [phone] I reviewed the R/B/A for the operation with the patient, who signed consent and agrees to proceed. Rea Olivo MD SUIT GLUER documented in this encounter Miscellaneous Notes * Care Plan - Molly Vasquez RN - 07/06/2019 8:11 PM WET SUIT GLUER Will continue to follow plan of care. SUIT GLUER * Care Plan - Mallorie Rodriguez RN - 07/06/2019 5:41 PM WET SUIT GLUER Assessment is done, documented. care plan initiated. SUIT GLUER * Operative Report (Direct Entry) - Rea Olivo MD - 07/06/2019 12:30 PM WET SUIT GLUER Operative Report Surgery Date: 07/06/2019 Incision/Procedure Start Time: 1:25pm Incision Close/Procedure End Time: 2:43 PM Procedure Performed: Left Simple Mastectomy Left breast injection of dye for lymphatic mapping Left sentinel lymph node Surgeon(s) and Rn Medical Surgical(s): Surgeon(s) and Role: * eRa Olivo MD - Primary * Melissa Fuentes [...] Stage IB (cT2, cN0, cM0, G2, ER+, TN+, HER2-) - Signed by Herbert Santa APRN [...] SHORT STITCH SUPERIOR LONG STITCH LATERAL Tissue [place] [address],Left SURGICAL PATHOLOGY Rea Olivo MD 07/06/2019 1358 2 : LEFT AXILLARY SENTINEL LYMPH NODE #1 Tissue Axilla SURGICAL PATHOLOGY Rea Olivo MD 07/06/2019 1407 Drains: two left anterior chest wall Complications: none I personally performed the entire procedure with assistance. SIGNATURE: Rea Olivo MD PATIENT NAME: Jeffry Dye DATE: July 06, 2019 TIME: 2:43 PM SUIT GLUER documented in this encounter Plan of Treatment Order Schedule Name Type Priority Associated Diag noses ONE TIME for 1 Occurrences starting 03/2019 until 07/06/2019, 1 completed BREAST SPEC PATH ONLY/NO Imaging Routine RAD READ documented as of this encounter Procedures Comments Procedure Name Priority Date/Time Associated Diag nosis POC GLUCOSE 07/07/2019 7:36 AM WET SUIT GLUER POC GLUCOSE 07/06/2019 10:09 PM WET SUIT GLUER POC GLUCOSE 07/06/2019 5:49 PM WET SUIT GLUER POC GLUCOSE 07/06/2019 3:32 PM WET SUIT GLUER HC FROZEN SECTION #1 Routine 07/06/2019 Malignant neoplasm of 1:58 PM WET SUIT GLUER upper-outer quadrant of left female breast, unspecified estrogen receptor status (HCC) BIOPSY/ EXCISION LYMPH 07/06/2019 Malignant neop lasm of NODE DEEP AXILLARY 1:05 PM WET SUIT GLUER upper-outer quadra nt of left female breast, unspecified estrogen receptor status (HCC) INJECTION RADIOACTIVE 07/06/2019 Malignant neopl asm of TRACER FOR SENTINEL NODE 1:05 PM WET SUIT GLUER upper-outer quadrant of IDENTIFICATION left female breast, unspecified estrogen receptor status (HCC) IDENTIFICATION SENTINEL 07/06/2019 Malignant juan carlos plasm of LYMPH NODE 1:05 PM WET SUIT GLUER upper-outer quadran t of left female breast, unspecified estrogen receptor status (HCC) MASTECTOMY - COMPLETE - 07/06/2019 Malignant juan carlos plasm of SIMPLE 1:05 PM WET SUIT GLUER upper-outer quadran t of left female breast, unspecified estrogen receptor status (HCC) BREAST SPEC PATH ONLY/NO Routine 07/06/2019 RAD READ 11:35 AM WET SUIT GLUER POC GLUCOSE 07/06/2019 11:18 AM WET SUIT GLUER TUMOR PROGNOSTIC MARKERS 07/06/2019 SCAN 12:00 AM WET SUIT GLUER TELEMETRY STRIPS-SCAN 07/06/2019 12:00 AM WET SUIT GLUER documented in this encounter Results * POC GLUCOSE (07/07/2019 7:36 AM WET SUIT GLUER) Glucose, POC 143 (H) 70 - 100 MG/DL MAIN LAB Specimen Performing Organization Address [facility] [place] Ph one [place] MAIN LAB [address] [place] [address] * POC GLUCOSE (07/06/2019 10:09 PM WET SUIT GLUER) Glucose, POC 170 (H) 70 - 100 MG/DL MAIN LAB Specimen Performing Organization Address [facility] [place] Ph one Number MAIN LAB [address] [place] [address] * POC GLUCOSE (07/06/2019 5:49 PM WET SUIT GLUER) Glucose, POC 196 (H) 70 - 100 MG/DL MAIN LAB Specimen Performing Organization Address [facility] [place] Ph one Number MAIN LAB [address] [place] [address] * POC GLUCOSE (07/06/2019 3:32 PM WET SUIT GLUER) Glucose, POC 144 (H) 70 - 100 MG/DL MAIN LAB Specimen Performing Organization Address City/State/Zipcode Ph one Number MAIN LAB [address] [place] [address] * SURGICAL PATHOLOGY (07/06/2019 1:58 PM WET SUIT GLUER) PATHOLOGY [email or web address] Department of Pathology and Laboratory Medicine [address] [place] [address] Surgical Pathology Office: [phone] SURGICAL PATHOLOGY REPORT NAME: JEFFRY DYE SURG PATH #: [id number] MR #: [id number] SPECIMEN CLASS: SI BILLING #: [id number] ALT ID #: LOCATION: 3 DATE OF [...] 95% Positive Stain Intensity: Strong Progesterone Receptor (TN): 91% Positive Stain Intensity: Strong Her2: 0 Negative Ki-67 10% Testing performed on block Number: A40 (10:00 Nodule) Estrogen Receptor (ER): 97% Positive Stain Intensity: Strong Progesterone Receptor (TN): <1% Negative Stain Intensity: Not Applicable Note: Internal control cells present and stain as expected. Her2: 0 Negative Ki-67 9% The original image analysis report is scanned in [employer] under Results Review. Disclaimer: The [facility] is certified under the Clinical Laboratory Improvement Amendments of 1988 (CLIA) to perform high complexity clinical laboratory testing. The Food and Drug Administration (FDA) cleared estrogen receptor/progesterone receptor (ER/TN) assays and the FDA approved Her2 assay are performed on formalin-fixed, paraffin-embedded tissue sections using the [place] Benchmark Ultraview [place] DAB detection kit with [place] Confirm ER antibody (clone [id number]), [place] Confirm TN antibody (clone [id number]), and [place] Pathway Her2/luis e antibody (clone [id number]). Ki-67 is performed using Dako Flex Ki-67 antibody (clone MIB-1) with Dako Flex Dab detection kit on autostainer Link 48. Interpretations of the ER/TN and Her2 results follow the most current [place] Society of Clinical Oncology/College of [place] Pathologists (ASCO/CAP) guidelines. Known positive and negative control tissues show appropriate staining. Cold ischemic time and formalin fixation time of the tissue meet the ASCO/CAP requirements unless noted in the original pathology report. This assay has not been validated on decalcified tissues. The image analysis is performed using [employer] Image Analysis system (v5.6.2). CLARISA ARIZMENDI MD [...] cm from the deep margin Histologic Grade ([place] Histologic Score) (all foci of invasive ductal carcinoma): II/III Tubule Formation: 3 Nuclear Grade: 2 Mitotic Count (40x objective): 1 Total Sebastien Score: 6/9 Histologic Grade ([place] Histologic Score) (all foci of invasive lobular carcinoma): II/III Tubule Formation: 3 Nuclear Grade: 2 Mitotic Count (40x objective): 1 Total [place] Score: 6/9 Ductal Carcinoma In-situ (DCIS): Present Extensive intraductal component (>25%): Present, approximately 5.0 cm in greatest dimension DCIS within and/or adjacent to invasive carcinoma: Yes DCIS separate from invasive carcinoma: Yes Lobular Carcinoma In-situ (LCIS): Present Lymph-Vascular Invasion: Present Nipple Involvement: DCIS involves nipple ducts Skin Involvement: Absent Skeletal Muscle: Not present Lymph Node Sampling: [place] lymph node(s) only Total number of lymph [...] Lesion location 3:00 Metallic clip identified: Yes, [place] clip Uninvolved breast parenchyma: 90% lobular nagy-yellow with 10% fibrous [id number] breast parenchyma Tissue sent to the [facility] Core Facility: No The deep resection margin is inked black Axillary dissection attached: No Risk Assessment Analyst sections of the specimen are submitted as follows: A1 Risk Assessment Analyst sections of the upper outer quadrant. A2 Risk Assessment Analyst sections of the lower outer quadrant. A3 Risk Assessment Analyst sections of the lower inner quadrant. A4 Risk Assessment Analyst sections of the upper inner quadrant. A5 Risk Assessment Analyst section of skin closest to the lesion. [...] formalin until 0400 on July 07, 2019. ([facility]) B. Received fresh, labeled the patient's name [...] blue, black). B2FS One possible lymph node. ([facility]) [facility]/07/06/2019 Intraoperative Consultation: [id number], lymph nodes (4), "left axillary sentinel lymph node #1", excision: Negative for malignancy. Frozen section performed at the [facility], [address], [place] [address]. MONROE FRYE MD If immunohistochemical stains and/or in situ hybridization are cited in this report, the performance characteristics were determined by the Department of Pathology and Laboratory Medicine of the [facility] ([employer]) in compliance with CLIA'88 regulations. [...] of Pathology and Laboratory Medicine of the [facility]. It has not been cleared or approved by the FDA. The FDA has determined that such clearance or approval is not necessary. Specimen Tissue - Breast,Left Tissue - Axilla Performing Organization Address [facility] [place] Ph one Number [facility] [address] [place] [address] * BREAST SPEC PATH ONLY/NO RAD READ (07/06/2019 11:35 AM WET SUIT GLUER) Specimen Narrative Performed At This order has been auto finalized and does not conta in a result. [facility] RAD MAMMO Performing Organization Address [facility] [place] Ph one Number RAD MAMMO * POC GLUCOSE (07/06/2019 11:18 AM WET SUIT GLUER) Glucose, POC 115 (H) 70 - 100 MG/DL MAIN LAB Specimen Performing Organization Address [facility] Ph one Number [facility] [address] [place] [address] * TELEMETRY STRIPS-SCAN (07/06/2019 12:00 AM WET SUIT GLUER) Narrative Performed At This result has an attachment that is n ot available. Ordered by an unspecified provider. * TUMOR PROGNOSTIC MARKERS SCAN (07/06/2019 12:00 AM WET SUIT GLUER) Narrative Performed At This result has an [...] Medication Order MAR Action 07/06/2019 8:56 PM WET SUIT GLUER 20 mg atorvastatin (LIPITOR) tablet 20 mg Given 20 mg, Oral, AT BEDTIME DAILY, First dose on Sat07/06/19 at 2100, Until Discontinued 07/06/2019 4:19 PM WET SUIT GLUER 50 mcg fentaNYL citrate PF (SUBLIMAZE) Given injection 50 mcg 50 mcg, Intravenous, EVERY 5 MIN PRN, Starting Sat07/06/19 at 1502, Until Sat07/06/19 at 1646, Pain Injectable, For Pain Score 4-6, Maximum total dose 200 mcg Hold if RR < 10, PACU (only) 50 mcg Given 07/06/2019 3:52 PM WET SUIT GLUER 50 mcg Given 07/06/2019 3:46 PM WET SUIT GLUER 07/07/2019 8:57 AM WET SUIT GLUER 0.5 mL Deltoid, Right influenza (=>6 MO)(QUADrivalent) [...] - NOTE: If dose unavailable , send InKustomNote message to pharmacy, 07/06/2019 1:14 PM WET SUIT GLUER 2.5 mL isosulfan blue (LYMPHAZURIN) injection Given INTRA-PROCEDURE MED, Starting Sat07/06/19 at 1314, Until Sat07/06/19 at 1521, Intra-op 07/06/2019 2:40 PM WET SUIT GLUER lactated ringers infusion Given - New 1,000 mL, 1,000 mL, Intravenous, at 20 Bag mL/hr, CONTINUOUS, Starting Sat07/06/19 at 1030, Until Sat07/06/19 at 1653, Pre-Op 1,000 mL 20 mL/hr Given - New Bag 07/06/2019 10:50 AM WET SUIT GLUER 07/07/2019 8:56 AM WET SUIT GLUER 2.5 mg lisinopril (ZESTRIL) tablet 2.5 mg Given 2.5 mg, Oral, DAILY, First dose on Sat07/07/19 at 0900, Until Discontinued 07/06/2019 5:46 PM WET SUIT GLUER 2 mg morphine injection 2-4 mg Given 2-4 mg, Intravenous, EVERY 2 HOURS PRN , Starting Sat07/06/19 at 1653, Until Sat07/07/19 at 1343, Pain Injectable 07/07/2019 4:13 AM WET SUIT GLUER 5 mg oxyCODONE (ROXICODONE) tablet 5-10 mg Given 5-10 mg, Oral, EVERY 6 HOURS PRN, Starting Sat07/06/19 at 1653, Until Sat07/07/19 at 1343, Pain PO 07/07/2019 8:57 AM WET SUIT GLUER 1 tablet senna/docusate (SENOKOT-S) tablet 1 Given tablet 1 tablet, Oral, TWICE DAILY, First dose on Sat07/06/19 at 2100, Until Discontinued, Hold for loose stools, 1 tablet Given 07/06/2019 8:56 PM WET SUIT GLUER 07/06/2019 7:12 PM WET SUIT GLUER 100 mL/hr sodium chloride 0.45 % with KCl 20 Dose/Rate mEq/L infusion Verify 1,000 mL, Intravenous, at 100 mL/hr, CONTINUOUS, Starting Sat07/06/19 at 1700, Until Sat07/07/19 at 1343, Lock IV fluids after patient tolerating oral intake., 100 mL/hr Given - New Bag 07/06/2019 5:23 PM WET SUIT GLUER documented in this encounter
--- OUTSIDE RECORDS SUMMARY | 2019-10-30 07:46 | XMS REPORT | Encounter Summary ---
Author Author [facility] Organization [facility] Address Unknown Phone Unavailable Care Team Providers Care Integrated Marketing Specialist Name Role Phone Sameera Smith MD PCP Encounter Details Care Team Description [place] [address] [place] [address] Coronary artery disease involving [place] heart with angina pectoris, unspecified vessel or lesion type (HCC) (Primary Dx) 07/01/2019 PAC Office [facility] [address] [place] [address] Anesthesia Record Responsible Anesthesiologist Anesthesia Start Time [...] ic Airway LMA; 4; 1 insertion attempt; [place], Auscultation, End-tidal CO2 ARIELA Duffy 07/06/19; [...] Comments Vital Sign 140/69 07/01/2019 12:40 PM MACHINE CLOTHING WORKER Blood Pressure 75 07/01/2019 12:40 PM MACHINE CLOTHING WORKER Pulse 36.5 C (97.7 F) 07/01/2019 12:40 PM MACHINE CLOTHING WORKER Temperature - - Respiratory Rate 99% 07/01/2019 12:40 PM MACHINE CLOTHING WORKER Oxygen Saturation - - Inhaled Oxygen Concentration 89.3 kg (196 lb 12.8 oz) 07/01/2019 12:40 PM MACHINE CLOTHING WORKER Weight 175.3 cm (5' 9") 07/01/2019 12:40 PM MACHINE CLOTHING WORKER Height 29.06 07/01/2019 12:40 PM MACHINE CLOTHING WORKER Body Mass Index documented in this encounter [...] Park Kennedy RN - 07/01/2019 1:00 PM MACHINE CLOTHING WORKER GENERAL INFORMATION Before you come to the [...] and any other valuables at home. The [facility] is not responsible for the loss or breakage of [employer] items. Remove nail turkmen, makeup and all jewelry (including piercings) before comin g to the hospital. The morning of your procedure: brush your teeth and tongue do not smoke do not shave the area where you will have surgery What to bring to the hospital ID/ Insurance Card Cover Creaser card Copy of your Living Will, Advanced [...] to cancel your procedure Notify us at Green: if you need to cancel your procedure if you are going to be late Arrival at the hospital Arrival at the hospital: [facility] - Your surgery is scheduled on 07/06/2019 at 12:30 p.m. Jabier wilson arrive at 10:30 a.m. The [facility] is located at [address] [place] [address]. This is at the [facility] of [address] Use the main entrance of the hospital, at the east side of the building. Parking is free. Check-in for surgery is inside the main entrance. INE CLOTHING WORKER * Pre-Anesthesia Medication Instructions* Mc Cope, PHARMD - 07/01/2019 1:00 PM MACHINE CLOTHING WORKER YOUR MEDICATIONS: aspirin EC 81 mg tablet [...] any medicine updates o r questions. E-mail: [email or web address] Before going home from the hospital, please ask your doctor when you should re-s tart your medicines that were stopped before surgery. INE CLOTHING WORKER documented in this encounter Progress Notes * Mc Cope PHARMD - 07/01/2019 1:00 PM MACHINE CLOTHING WORKER PAC Pharmacist Medication Plan Note: Ximena William [...] verbalized understanding. [email or web address]iswillbea ppropriateandacceptable. Mc Cope PHARMD INE CLOTHING WORKER documented in this encounter Plan of Treatment Order Schedule Name Type Priority Associated Diag noses ONE TIME for 1 Occurrences starting 10/2018 until 07/01/2019 ECG 12-LEAD ECG STAT Coronary artery disease involving [place] heart with angina pectoris, unspecified vessel or lesion type (HCC) documented as of this encounter Procedures Comments Procedure Name Priority Date/Time Associated Diag nosis HC BASIC METABOLIC PANEL Routine 07/01/2019 Coron lacey artery disease 1:16 PM MACHINE CLOTHING WORKER involving [place] heart with angina pectoris, unspecified vessel or lesion type (HCC) ECG-SCAN 07/01/2019 12:00 AM MACHINE CLOTHING WORKER documented in this encounter Results * BASIC METABOLIC PANEL (07/01/2019 1:16 PM MACHINE CLOTHING WORKER) Sodium 137 137 - 147 MMOL/L [facility] [...] (L) >60 mL/min [facility] MAIN [facility] Comment: [place] The eGFR is not validated f or use in drug dosing adjustments. Continue to use estimated creatinine clearance per dosing reference text. Please contact the Clinical Pharmacist for questions. eGFR 59 (L) >60 mL/min [facility] [place] Comment: The eGFR is not validated for use in drug dosing adjustments. Continue to use estimated creatinine clearance per dosing reference text. Please contact the Clinical Pharmacist for questions. Specimen Blood Performing Organization Address City/State/Zipcode Ph one Number [facility] [address] [place] [address] * ECG-SCAN (07/01/2019 12:00 AM MACHINE CLOTHING WORKER) Narrative Performed At This result has an attachment that is n ot available. Ordered by an unspecified provider. documented in this encounter Visit Diagnoses Diagnosis Coronary artery disease involving nativ e heart with angina pectoris, unspecified vessel or lesion type (HCC) documented in this encounter
--- OUTSIDE RECORDS SUMMARY | 2019-10-30 07:46 | XMS REPORT | Encounter Summary ---
Author Author [facility] Organization [facility] Address Unknown Phone Unavailable Care Team Providers Care Clinical Nurse Occupational Medicine Name Role Phone Sameera Smith MD PCP Encounter Details Care Team Description [place] [address] [place] [address] Malignant neoplasm of unspecified site o f left female breast (HCC) 06/04/2019 [facility] [address] [address] Social History Date Tobacco Use Types Packs/Day [...] (FISH OIL PO) mouth. 07/01/2019 mv,with 0 Ns-tnvr-LW-lut-179herb (WOMENS MULTIVITAMIN HI POTENCY) 13.5-200-250 mg-mcg-mcg tab documented as of this encounter Plan of Treatment Not on filedocumented as of this encounter Procedures Comments Procedure Name Priority Date/Time Associated Diag nosis HC IMMUNOPEROX PER SPEC 06/04/2019 1ST STAIN 10:30 AM ADMISSIONS REPRESENTATIVE PATHOLOGY REPORTS FROM 06/04/2019 OUTSIDE SCAN 12:00 AM ADMISSIONS REPRESENTATIVE documented in this encounter Results * OUTSIDE PATHOLOGY CONSULT (06/04/2019 10:30 AM ADMISSIONS REPRESENTATIVE) PATHOLOGY [facility] [email or web address] Department of Pathology and Laboratory Medicine [address] [place] [address] Surgical Pathology Office: [phone] PATHOLOGY CONSULTATION NAME: XIMENA DYE SURG PATH #: [id number] MR #: [id number] ALT ID #: LOCATION: [facility] DATE OF PROCEDURE: 06/04/2019 AGE: 64 SEX: F DATE RECEIVED: 06/04/2019 : 1955 TIME RECEIVED: 10:30 PHYSICIAN: CAIT MORGAN MD DATE OF REPORT: 06/12/2019 COPY TO: DATE OF PRINTIN06/12/2019 OUTSIDE INSTITUTION: [facility] Laboratory, [address] [place] [address] ############################## ############################## ############ Final Diagnosis: A. Outside case "[id number]" (Date collected: 04/29/19): 1. Breast, "left at [...] are obtained and immunostains are performed at [facility] histology lab, which shows the invasive carcinoma [...] are obtained and immunostains are performed at [facility] histology lab, which shows the invasive carcinoma [...] 12 (x5 USS A1, x5 USS B1), [id number], [facility], [facility] Laboratory, [address] [place] [id number] History: 64-year-old female with breast mass. Outside biopsy slides are submitted for review area Gross Description: Low left cut out Gen. well A. Received are twelve (12) outside slides and a report labeled "[id number]". lkr/06/04/2019 If immunohistochemical stains and/or in situ hybridization are cited in this report, the performance characteristics were determined by the [facility] ([employer] [facility]) in compliance with [...] of [facility]. It has not been cleared or approved by the FDA. The FDA has determined that such clearance or approval is not necessary. Specimen Performing Organization Address City/State/Zipcode Ph one Number MAIN LAB [address] [place] [address] * PATHOLOGY REPORTS FROM OUTSIDE SCAN (06/04/2019 12:00 AM ADMISSIONS REPRESENTATIVE) Narrative Performed At This result has an attachment that is n ot available. Ordered by an unspecified provider. documented in this encounter Visit Diagnoses Not on filedocumented in this encounter
--- OUTSIDE RECORDS SUMMARY | 2019-10-30 07:46 | XMS REPORT | Encounter Summary ---
Author Author [facility] Organization [facility] Address Unknown Phone Unavailable Care Team Providers Care Vendor Analyst Name Role Phone Sameera Smith MD PCP Reason for Referral * Radiology Services (Routine) Referred By Contact Referred To Contact Status Reason Specialty Diagnoses / [place] [address] [place] [address] [facility] [id number] [place] [address] No Auth Needed Radiology Diagnoses Malignant neoplasm [...] Description [place] [address] [place] [address] 07/06/2019 [facility] [address] [place] [address] Social History Date Tobacco Use Types Packs/Day [...] neoplasm of RADIOTRACER LT (OR) 7:10 AM AIR MOVING TECHNICIAN upper-outer quadr ant of left breast in female, estrogen receptor positive (HCC) documented in this encounter Results * MAMMO LYMPH NODE INJ RADIOTRACER LT (OR) (07/06/2019 7:10 AM AIR MOVING TECHNICIAN) Specimen Narrative Performed At This order has been auto finalized and does not conta in a result. 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
--- OUTSIDE RECORDS SUMMARY | 2019-10-30 07:46 | XMS REPORT | Encounter Summary ---
Author Author [facility] Organization [facility] Address Unknown Phone Unavailable Care Team Providers Care Compress Machine Operator Name Role Phone Sameera mSith MD PCP Reason for Visit * Reason Comments Cancer * Consult, Test & Treat (Routine) Referred By Contact Referred To Contact Status Reason Specialty Diagnoses / [place] [address] [place] [address] Cc - Ww Cl Exm/Proc [address] No Auth Needed Specialty Services Oncology Diagnoses Required Malignant neoplasm of upper-outer quadrant of left breast in female, estrogen receptor positive (HCC) Encounter Details Care Team Description [place] [address] [place] [address] [phone] At risk for lymphedema (Primary Dx) 05/28/2019 Nurse Only The [address] [phone] Social History Date Tobacco Use Types Packs/Day [...]
--- OUTSIDE RECORDS SUMMARY | 2019-10-30 07:46 | XMS REPORT | Encounter Summary ---
Author Author [facility] Organization [facility] Address Unknown Phone Unavailable Care Team Providers Care Resource Specialist Teacher Name Role Phone Sameera Smith MD PCP Reason for Referral * Radiology Services (Routine) Referred By Contact Referred To Contact Status Reason Specialty Diagnoses / Procedures Ella Millan APRN-NP [address] [place] [address] [place] [address] No Auth Needed Radiology Diagnoses Infiltrating ductal carcinoma of left breast (HCC) Elevated alkaline phosphatase level P rocedures NM BONE SCAN WHOLEBODY Reason for Visit * Radiology Services (Routine) Referred By Contact Referred To Contact Status Reason Specialty Diagnoses / Procedures Ella Millan APRN-NP [address] [place] [address] Nuclear Med [address] [place] [address] No Auth Needed Radiology Diagnoses Infiltrating ductal carcinoma of left breast (HCC) Elevated alkaline phosphatase level P rocedures NM BONE SCAN WHOLEBODY Encounter Details Care Team Description Date Type Department Ella Millan APRN-NP [address] [place] [address] [phone] 06/29/2019 [facility] [address] [place] [address] [facility] [address] [place] [address] Social History Date Tobacco Use Types Packs/Day [...] (FISH OIL PO) mouth. 07/01/2019 mv,with 0 Mx-rzrr-DT-lut-179herb (WOMENS MULTIVITAMIN HI POTENCY) 13.5-200-250 mg-mcg-mcg tab documented as of this encounter Plan of Treatment Not on filedocumented as of this encounter Procedures Comments Procedure Name Priority Date/Time Associated Diag nosis NM BONE SCAN WHOLEBODY Routine 06/29/2019 Infiltr ating ductal 11:39 AM ECONOMETRICIAN carcinoma of left breast (HCC) Elevated alkaline phosphatase level documented in this encounter Results * NM BONE SCAN WHOLEBODY (06/29/2019 11:39 AM ECONOMETRICIAN) Specimen Impressions Performed At 1. No scintigraphic [...] Interface, Radiant Results - 06/29/2019 5:34 PM ECONOMETRICIAN BONE SCINTIGRAPHY (WHOLE-BODY) Radiopharmaceutical: 26.7 mCi IV [...] evidence of osseous metastatic disease. Approved by Edeinlson Veliz M.D. on 06/29/2019 2:49 PM By [...] Medication Order MAR Action 06/29/2019 7:51 AM ECONOMETRICIAN 26.7 millicuries RP DX Tc-99m medronate (MDP) injection Given 25 millicurie 25 millicurie, Intravenous, ONCE, 1 dose, 06/29/19 at 0845 documented in this encounter
--- OUTSIDE RECORDS SUMMARY | 2019-10-30 07:47 | XMS REPORT | Encounter Summary ---
Author Author [facility] Organization [facility] Address Unknown Phone Unavailable Care Team Providers Care Dairy Manager Name Role Phone Sameera Smith MD PCP Reason for Referral * Consult, Test & Treat (Routine) Referred By Contact Referred To Contact Status Reason Specialty Diagnoses / [place] [address] [place] [address] Cc - Ww Cl Exm/Proc [address] No Auth Needed Specialty Services Oncology Diagnoses Required Malignant neoplasm of upper-outer quadrant of left breast in female, estrogen receptor positive (HCC) Scheduling Instructions Lymphedema Prevention Clinic Locations: [place] : [phone] [place] [address]: [phone] [facility] Exam [address] [place] [address] Reason for Visit * Reason Comments New Patient * Consult, Test & Treat (Routine) Referred By Contact Referred To Contact Status Reason Specialty Diagnoses / Procedures Unknown, Unknown, Cc - Ww Cl Exm/Proc [place] [phone] No Auth Needed Oncology Diagnoses DCIS Encounter Details Care Team Description [place] [address] [place] [address] [phone] 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, estrogen receptor positive (HCC) (Primary Dx) 05/28/2019 Office Visit [facility] [place] [address] Social History Date Tobacco Use Types Packs/Day [...] Stage IB (cT2, cN0, cM0, G2, ER+, WA+, HER2-) - Signed by Herbert Santa APRN [...] findings was recommended. Pertinent PMH: Hx of [place] in 2017 (stent placed), Hx of smoking 1 PPD x 43 years, hyperlipidemia, HTN, Type II DM. Fundraising Officer is Dr. Mathew in [place], [place] Family History: Sister with breast cancer [...] (HCC) 2019 Heart disease HTN (hypertension) Hyperlipidemia [place] (myocardial infarction) ([facility]) 2017 Type II diabetes mellitus ([facility]) Surgical History: Procedure Laterality Date [...] Take 2.5 mg by mouth daily. mv,with Tg-mlri-GP-lut-179herb (WOMENS MULTIVITAMIN HI POTENCY) 13.5-200-250 mg-mcg-mcg tab [...] retroareolar, 1.3cm with biopsy showing IDC ER+ WA+ H ER2-; 3:00 lateral side 4cm with biopsy showing ILC ER+ WA+ HER2-; and left inne r breast asymmetry with negative ultrasound without further work-up recommended. She has no prior breast atypia or high risk findings, but did have a prior linnette gn right breast lump removed in . PMH: notable for [place] 2017 s/p stent on plavix + ASA without history of heart fail ure and currently following with casino floor walker at home; DM2 with A1c 6s FH: [...] assessment/impression: cT2N0 left breast cancer Comorbidities prior [place] with stent (managed by casino floor walker), DM2 managed by PCP, smoker declining intervention [...] mobility versus chest wall on exam and [facility] diagnosis. We discussed smoking cessation, the importance [...] 44 (L) >60 mL/min [facility] Comment: [place] The eGFR is not validated f or use in drug dosing adjustments. Continue to use estimated creatinine clearance per dosing reference text. Please contact the Clinical Pharmacist for questions. eGFR 53 (L) >60 mL/min [facility] [place] Comment: The eGFR is not validated for use in drug dosing adjustments. Continue to use estimated creatinine clearance per dosing reference text. Please contact the Clinical Pharmacist for questions. Specimen Blood Performing Organization Address City/[facility] Ph one Number [facility] [address] [place] [address] * CBC AND DIFF (05/28/2019 1:33 PM [...] Basophil Count Specimen Blood Performing Organization Address [facility] one Number [facility] [address] [place] [address] documented in this encounter Visit Diagnoses Diagnosis Malignant neoplasm of upper-outer quadr ant of left breast in female, estrogen receptor positive (HCC) documented in this encounter
--- OUTSIDE RECORDS SUMMARY | 2019-10-30 07:47 | XMS REPORT ---
Author Author [facility]. Organization [facility]. Address [address] [address] Care Team Providers Care Edge Stainer Machine Name Role Phone NO, LOCAL PHYSICIAN Unavailable Unavailable GAULT, DENISE R Unavailable GAULT, DENISE Unavailable GAULT, DENISE Unavailable GAULT, DENISE Unavailable GAULT, DENISE Unavailable KONSTANTINSAUD AlT Unavailable GAULT, DENISE Unavailable GAULT, DENISE Unavailable FORREST SEGAL Unavailable Unavailable GAULT, DENISE Unavailable GAULT, DENISE Unavailable GAULT, DENISE Unavailable JEANNETTE [facility], EMMANUEL ULLOA CCDS Unavailable UnavailBRIAN Bradley APRN Unavailable Unavailable FORREST SEGALP Unavailable Unavailable GAULT, DENISE Unavailable ANGI BO Unavailable Unavailable GAULT, DENISE Unavailable GAULT, DENISE Unavailable Migration, Doctor Unavailable Unavailable OMAYRA ADAMS Unavailable Unavailable WOOD, CHELSEA Unavailable Unavailable WOOD, CHELSEA Unavailable Unavailable Migration, Doctor Unavailable Unavailable GAULT, DENISE Unavailable Unavailable Migration, Doctor Unavailable Unavailable NAMRATA LOPEZ METAL PICKLING EQUIPMENT OPERATOR Unavailable Unavailable DENISE HILL MD R Unavailable Unavailable DENISE HILL MD R Unavailable Unavailable JEANNETTE [facility], EMMANUEL ULLOA CCDS Unavailable UnavailBRIAN Bradley APRN Unavailable Unavailable Migration, Doctor Unavailable Unavailable OMAYRA ADAMS Unavailable Unavailable WOOD, CHELSEA Unavailable Unavailable WOOD, CHELSEA Unavailable Unavailable Unavailable Unavailable Migration, Doctor Unavailable Unavailable Migration, Doctor Unavailable Unavailable GLYNN PERRY MD Unavailable Unavailable Migration, Doctor Unavailable Unavailable JILLIAN CARRANZA DO Unavailable Unavailable Allergies Normalized Allergy Reported Date of Reaction(s) Care Provider Facility Allergy Type classification allergen Allergy Onset Drug Allergy Angiotensin Lisinopril 11-09-2014 - Unknown Doctor Community (1 source.) Converting Translations: [facility] [place] ter Enzyme (TU) [ Lisinopril 5 of [place] Inhibitors Mg Tablet] [place] ([address]61) Medications Current Medications Medication Ingredient Drug Dose [...] Problem Problem Sta tus Onset/Resoluti Duration on Residual Acquired 10-14-2019 - Episodic Active KARYN WOODARD Via codes; absence of MD [place] unclassified [facility] - (1 source.) and [facility] (59334) Other upper Acute Episodic Active ANGI ABURTO Not Massiel ilable respiratory sinusitis, , [place] ([address]) infections (10 unspecified sources.) Other Body mass Episodic Active Doctor Community nutritional; index (BMI) [facility] endocrine; and 28.0-28.9, of [facility] metabolic adult [place] ([address]) disorders (3 Translations: sources.) [ - BMI 28.0-28.9,adul t Z68.28] Urinary tract Chronic Chronic Active Doctor Community infections (4 interstitial [facility] sources.) cystitis of [facility] Translations: [place] ([address]) [ Interstitial cystitis, - Interstitial cystitis N30.10] Congestive Chronic 09-29-2019 - Chronic Active KARYN MCGOVERN Via heart failure; systolic [place] nonhypertensiv (congestive) Hospital - e (7 sources.) heart failure [place] (18283) Other Disorder of 09-29-2019 - Chronic Active FORRESTHER COBB Cyril [facility] Via circulatory arteries and Marija disease (6 arterioles, Hospital - sources.) unspecified [place] (9[address]75) Immunizations Encounter for 09-29-2019 - Episodic Active DENISE HILL [facility] Via and screening immunization [place] for infectious Hospital - disease (7 [place] sources.) (84657) Other Encounter for 10-28-2019 - Episodic Active GLYNN GROSS G , [facility] Via aftercare (1 therapeutic [facility] [place] source.) drug level Hospital - monitoring [place] (59263) Essential Essential 09-29-2019 - Chronic Active BRIAN JENKINS [facility] Via hypertension (primary) [place] (14 sources.) hypertension [facility] (15045) Residual Family history 10-23-2019 - Episodic Active GLYNN PE NG , [facility] Via codes; of malignant [place] unclassified neoplasm of Hospital - (3 sources.) breast [place] () Residual Family history 10-23-2019 - Episodic Active MAKI PE NG , [facility] Via codes; of malignant [place] unclassified neoplasm of Hospital - (3 sources.) prostate [place] (58828) Esophageal Gastro-esophag 09-29-2019 - Chronic Active DENISE HEATH [facility] Via disorders (7 eal reflux [facility] [place] sources.) disease Hospital - without [place] esophagitis (59224) Hypertension Hypertensive 09-29-2019 - Chronic Active DENISE HEATH [facility] Via with heart disease [facility] [place] complications with heart Hospital - and secondary failure [place] hypertension (49436) (7 sources.) Lymphadenitis Localized 10-21-2019 - Episodic Active MAKI PE NG , [facility] Via (1 source.) enlarged lymph [place] nodes [facility] (20729) Other terminal worker 09-29-2019 - Episodic Active BRIAN JENKINS [facility] Via aftercare (11 (current) use [place] sources.) of Hospital - antithrombotic [place] s/antiplatelet (79988) s Other terminal worker 09-29-2019 - Episodic Active DENISE HILL [facility] Via aftercare (7 (current) use [facility] [place] sources.) of aspirin [facility] (67320) Substance-rela Nicotine 09-29-2019 - Chronic Active BRIAN FRAZIER [facility] Via krupa disorders dependence, [place]ja (18 sources.) cigarettes, Hospital - uncomplicated [place] (19822) Heart valve Nonrheumatic 09-29-2019 - Chronic Active FORREST SEGAL [facility] Via disorders (6 mitral (valve) [place] sources.) insufficiency [facility] (81588) Occlusion or Occlusion and 09-29-2019 - Chronic Active DENISE HILL , [facility] Via 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 Hospital - arteries (7 carotid [place] sources.) arteries (81760) Malaise and Other fatigue 09-29-2019 - Episodic Active ALI CINDI YOUNG , [facility] Via fatigue (8 MA FSCAI [place] sources.) [facility] (63628) Disorders of Other 09-29-2019 - Chronic Active EMMANUEL MATHEW , Not Available lipid hyperlipidemia MD HINES (94625) metabolism (20 Translations: sources.) [ HYPERLIPIDEMIA , UNSPECIFIED] Other Other long 09-29-2019 - Episodic Active BRIAN JENKINS [facility] Via aftercare (19 term (current) [place] sources.) drug therapy [facility] (94038) Other Pain in left 09-29-2019 - Episodic Active BRIAN JENKINS [facility] Via connective foot [place] tissue disease Hospital - (11 sources.) [place] (90314) Other Pain in left 09-29-2019 - Episodic Active DENISE HILL , [facility] Via non-traumatic shoulder [facility] [place] joint [facility] - disorders (7 [place] sources.) (87661) Residual Patient's 09-29-2019 - Episodic Active EMMANUEL ORDAZAD , [facility] Via codes; noncompliance MD FLORA [place] unclassified with other Hospital - (2 sources.) medical [place] treatment and (36638) regimen Cancer of Personal 10-14-2019 - Episodic Active GLYNN PERRY [facility] Via breast (1 history of [facility] [place] source.) malignant Hospital - neoplasm of [place] breast (50528) Coronary Presence of 09-29-2019 - Episodic Active DENISE HILL , [facility] Via atherosclerosi coronary MD Marija luis and other angioplasty Hospital - heart disease implant and [place] (1 source.) graft (38224) Coronary Presence of Episodic Active DENISE HILL , Not Av ailable atherosclerosi coronary (41837) s and other angioplasty heart disease implant and (7 sources.) graft Translations: [ OLD MYOCARDIAL INFARCTION, ATHSCL HEART DISEASE OF [place] CORONARY ] Open wounds of Puncture wound 09-04-2019 - Episodic Active SIM ON [facility] extremities (2 without District [facility] of sources.) foreign body [place] of left hand, [facility] (68408) initial encounter Translations: [ OPEN WOUND OF HAND EXCEPT FINGERS ALONE, WITHOUT MENTION OF COMPLICATION] Cardiac Ventricular 09-29-2019 - Chronic Active ALI JEANNETTE , [facility] Via dysrhythmias tachycardia FACHardy Chapai (10 sources.) [facility] (63627) Procedures Procedure Normalized Procedure Procedure Result Performer Facility Date 08-04-2013 Collection venous no information no name (no phone) [facility] blood venipuncture [facility] (39479) 08-04-2013 Comprehensive no information no name (no phone) [facility] metabolic panel [facility] (72545) 03-10-2018 Hemoglobin no information no name (no phone) [facility] glycosylated a1c [facility] (96789) 09-24-2017 Hemoglobin no information no name (no phone) [facility] glycosylated a1c [facility] (54360) 08-04-2013 Hemoglobin no information no name (no phone) [facility] glycosylated a1c [facility] (13590) 08-04-2013 Lipid panel no information no name (no phone) [facility] (25355) 08-04-2013 Urine albumin no information no name (no phone) [facility] quantitative [facility] (27067) 08-04-2013 Urine albumin no information no name (no phone) [facility] semiquantitative [facility] (50151) Immunizations Normalized Immunization Date Notes Care Provider Facili ty Immunization influenza virus 09-16-2017 no information no name no info rmation vaccine, split virus (incl. purified surface antigen) influenza, 07-07-2019 no information no name [facility]. injectable, Historical Data Code quadrivalent, (40585) preservative free TETANUS,DIPTH,PERT 08-18-2019 no information no name Hosp ital [facility] ADULT INJ 0 (ADACEL of [facility] SYRINGE) (17508) Results Test Name Value Interpretation Reference Range Date Time Fa cility (Normalized) (Normalized) (Medline Reference) a1c (in house) on null HbA1c 7.4 % (no code) 0 - 5.7 % [facility] (33001) Hemoglobin 8.1 % (no code) 0 - 5.7 % [facility] A1c/Hemoglobin.t Center of otal [facility] fraction (Bld) (22404) A1C (IN HOUSE) 0812 (no code) Community Healt [facility] (64304) A1C (IN HOUSE) 05/2019 (no code) Community Healt [facility] (30525) A1C (IN HOUSE) 0856 (no code) [facility] (77919) A1C (IN HOUSE) 09/2019 (no code) [facility]alt [facility] (83779) No panel information on null Exp date 09/2019 (no code) [facility]alt [facility] (26165) Lot 8.1~7.4~0856 (no code) [facility] (24690) No panel information on 2019-10-02 Bacteria SEE NOTE (no code) [facility] Healt identified [facility] Nom (U) [facility] (22284) BLO Trace-intact (no code) [facility] (14387) KET 09/2020~slightly (no code) Community Hea lt cloudy~yellow~no [facility] ne~Negative~Nega [facility] tive~Negative (64313) TIMUR no information (no code) [facility] (11958) Lot # [id number] (no code) [facility] (77923) pH (Bld) 7.5 [pH] (no code) 7.38 - 7.42 [pH] Communit y Health [facility] (24391) Protein (U) no information (no code) 0 - 20 mg/dL Community [facility] [Mass/Vol] [facility] (67364) SG 1.020 (no code) Community Healt [facility] (84420) URO 0.2 (no code) Community [facility] (12185) No panel information on 2019-09-22 BLO no information (no code) [facility] Healt [facility] (16008) Exp date 06/2021 (no code) [facility] Healt [facility] (35125) KET 07/2020~clear~yel (no code) Community Hea lth low~none~negativ [facility] e~negative~negat [facility] shady (15919) Lot 6.3~6.6~0610 (no code) [facility] (11296) Lot # [id number] (no code) [facility] (82699) pH (Bld) 7.0 [pH] (no code) 7.38 - 7.42 [pH] Communit [facility] (64198) Protein (U) no information (no code) 0 - 20 mg/dL Community Health [Mass/Vol] [facility] (48730) SG 1.020 (no code) [facility] (97324) URO 0.2 (no code) [facility] (39011) No panel information on 2019-06-22 Color (U) 06/17~clear~yell (no code) Community Hea lt ow [facility] (60242) KET no information (no code) [facility] (00726) Lot # [id number] (no code) [facility] (31949) pH (Bld) 5.5 [pH] (no code) 7.38 - 7.42 [pH] Communit [facility] (05858) Protein (U) no information (no code) 0 - 20 mg/dL [facility] Health [Mass/Vol] [facility] (62657) SG 1.010 (no code) [facility] (97018) URO 0.2 (no code) [facility] (72962) No panel information on 2019-04-04 Exp Date no information (no code) [facility] (09525) No panel information on 2019-04-02 Exp date no information (no code) [facility] (18495) No panel information on 2019-03-10 Exp date 10/16 (no code) [facility] (41027) Lot 6.6~6.2~0993 (no code) [facility] (77733) No panel information on 2018-09-11 A COMMENT no information (no code) [facility] (13708) CLINICAL no information (no code) [facility] INFORMATION [facility] (37030) CLINICAL no information (N) [facility] INFORMATION: [facility] (45236) COMMENT no information (no code) [facility] (74324) Sane Nurse Cyto no information (N) [facility] stain Nom [facility] (Cvx/Vag) [ID] [facility] (05646) Date of previous no information (N) [facility] biopsy [facility] (11353) Date of previous no information (N) [facility] PAP smear [facility] (68639) HPV E6+E7 mRNA Not Detected (N) [facility] BUBBA+probe Ql [facility] (Cvx) [facility] (38500) Last menstrual no information (N) [facility] period start [facility] (20017) Microscopic no information (no code) [facility] observation Cyto [facility] stain Nom (Cvx) [facility] (68794) Pathologist name no information (no code) [facility] (71501) Pathology report no information (no code) [facility] final diagnosis [facility] (81580) Pathology report no information (no code) [facility] gross [facility] Narrative (48899) Specimen source Cervix (N) [facility] Cyto stain Nom [facility] (Cvx/Vag) [facility] (22044) Specimen source no information (no code) [facility] Nom (Unsp spec) [facility] (91436) Statement of no information (N) [facility] adequacy Cyto [facility] (Cvx/Vag) [facility] [Interp] (69862) No panel information on 2017-09-24 Exp date 05/2019 (no code) [facility] (77755) Lot 7.4~7.0~0812 (no code) [facility] (20282) No panel information on 2016-10-02 Albumin BCG dye 4.2 (no code) 10-02-2016 Not Availa ble [Mass/Vol] 16: (74416) ALP [Catalytic 126 U/L (no code) 44 - 147 U/L 10-02-2016 Not Available activity/Vol] 16: (28203) ALT [Catalytic 31 U/L (no code) 4 - 40 U/L 10-02-2016 Not Av ailable activity/Vol] 16: (18076) Anion gap 16 mmol/L (H) 3 - 11 mmol/L 10-02-2016 Not Avai lable [Moles/Vol] 16: (97455) AST [Catalytic 22 U/L (no code) 10 - 34 U/L 10-02-2016 Not A vailable activity/Vol] 16: (55223) Basophils (Bld) 0.0 10*3/uL (no code) 0 - 0.3 10*3/uL 10-02-2016 Not Available [#/Vol] 16: (40695) Basophils/100 0.20 % (no code) 0.5 - 1 % 10-02-2016 Not Avai lable WBC (Bld) 16: (99463) Bilirubin 0.3 mg/dL (no code) 0.1 - 1.2 mg/dL 10-02-2016 Not Av ailable [Mass/Vol] 16: (54022) Calcium 10.4 mg/dL (no code) 8.5 - 10.2 mg/dL 10-02-2016 Not Available [Mass/Vol] 16: (43810) Chloride 106 mmol/L (no code) 95 - 106 mmol/L 10-02-2016 Not A vailable [Moles/Vol] 16: (58657) CK [Catalytic 69 U/L (no code) 10-02-2016 Not Availabl e activity/Vol] 16: (78540) CK.MB [Mass/Vol] 1.4 ng/mL (no code) 0 - 4.3 ng/mL 10-02-2016 N ot Available 16: (54736) Creatinine 1.14 mg/dL (no code) 10-02-2016 Not Available [Mass/Vol] 16: (79548) Electrocardiogra Complete (no code) 10-02-2016 Not Avail [...] Availa ble M.predicted MDRD mL/min/{1.73_m2} mL/min/{1.73_m2} 16: (10866) (S/P/Bld) [Vol rate/Area] Globulin (S) 3.5 g/dL (no code) 2 - 3.5 g/dL 10-02-2016 Not Av ailable [Mass/Vol] 16: (93995) Glucose 129 mg/dL (H) 60 - 125 mg/dL 10-02-2016 Not Massiel ilable [Mass/Vol] 16: (69063) HCO3 (P) 25 (no code) 10-02-2016 Not Available [Moles/Vol] 16: (18058) Hematocrit (Bld) 42.7 % (no code) 36.1 - 50.3 % 10-02-2016 N ot Available [Volume 16:110500 (66025) fraction] Hemoglobin (Bld) 14.1 g/dL (no code) 12.1 - 17.2 g/dL 10-02-2016 Not Available [Mass/Vol] 16:110500 (71449) Lymphocytes 2.26 10*3/uL (no code) 0.9 - 2.9 10-02-2016 Not Massiel ilable (Bld) [#/Vol] 10*3/uL 16:110500 (76461) Lymphocytes/100 28.1 % (no code) 20 - 40 % 10-02-2016 Not Av ailable WBC (Bld) 16:0500 (08060) MCH (RBC) 30.7 pg (no code) 27 - 31 pg 10-02-2016 Not Availab le [Entitic mass] 16:0500 (05918) MCHC (RBC) 33.0 g/dL (no code) 32 - 36 g/dL 10-02-2016 Not Avai lable [Mass/Vol] 16:110500 (16709) MCV (RBC) 93.0 fL (no code) 80 - 100 fL 10-02-2016 Not Availa ble [Entitic vol] 16:11-0500 (60401) Monocytes (Bld) 0.5 10*3/uL (no code) 0.3 - 0.9 10-02-2016 Not Available [#/Vol] 10*3/uL 16:110500 (02176) Monocytes/100 6.5 % (no code) 2 - 8 % 10-02-2016 Not Avai lable WBC (Bld) 16:110500 (89369) Myoglobin 29.3 ng/mL (no code) 10-02-2016 Not Available [Mass/Vol] 16:11-0500 (94444) Neutrophils 5.11 10*3/uL (no code) 1.7 - 7 10*3/uL 10-02-2016 N ot Available (Bld) [#/Vol] 16:11-0500 (20588) Neutrophils/100 63.5 % (no code) 40 - 60 % 10-02-2016 Not Av ailable WBC (Bld) 16:0500 (29629) Osmolality Calc 299 (H) 10-02-2016 Not Availa ble [Osmolality] 16: (40506) Platelet mean 10.9 fL (H) 7.2 - 11.7 fL 10-02-2016 Not Available volume (Bld) 16:0500 (17862) [Entitic vol] Platelets (Bld) 192 10*3/uL (no code) 150 - 450 10-02-2016 Not Available [#/Vol] 10*3/uL 16:0 (05864) Potassium 4.1 mmol/L (no code) 3.7 - 5.2 mmol/L 10-02-2016 Not Available [Moles/Vol] 16:0 (10716) Protein 7.7 g/dL (no code) 6.4 - 8.3 g/dL 10-02-2016 Not Massiel ilable [Mass/Vol] 16:0 (94157) RBC (Bld) 4.59 10*6/uL (no code) 4.2 - 6.1 10-02-2016 Not Avail able [#/Vol] 10*6/uL 16:0 (43086) Sodium 143 mmol/L (no code) 135 - 145 mmol/L 10-02-2016 Not Available [Moles/Vol] 16:0500 (31610) Troponin ng/mL (no code) 0 - 0.4 ng/mL 10-02-2016 Not Avai lable I.cardiac 16: (90907) [Mass/Vol] Urea nitrogen 20 mg/dL (no code) 7 - 20 mg/dL 10-02-2016 Not A vailable [Mass/Vol] 16:0500 (37461) WBC (Bld) 8.05 10*3/uL (no code) 3.5 - 10.5 10-02-2016 Not Avai lable [#/Vol] 10*3/uL 16:0500 (99338) Vital Signs Vital Sign Value Interpretation Reference Date Time Care Prov ider Facility (Normalized) (Normalized) Range BMI (Body Mass 28.32 kg/m2 (no code) 15 - 25 kg/m2 03-10-2018 LLY GAULT Community Index) 16:40-0400 38123 [facility] (30471) BMI (Body Mass 28.41 kg/m2 (no code) 15 - 25 kg/m2 09-24-2017 HO LLY GAULT Community Index) 11:00-[address] [place] [address] (93770) Body height 177.8 cm (no code) cm 08-04-2013 Doctor Com munity 10:170500 [facility] (44342) Body 98.1 [degF] (no code) 97.8 - 99.0 03-10-2018 [facility] Temperature [degF] 16:40-[address] [place] [address] (98832) Body 97.6 [degF] (no code) 97.8 - 99.0 09-24-2017 DENISE OSVALDO [facility] Temperature [degF] 11:000500 [address] [place] [address] (99771) Body 98.6 [degF] (no code) 97.8 - 99.0 08-04-2013 Doctor [facility] temperature [degF] 10:170500 [facility] (35808) Body weight 90.27 kg (no code) kg 08-04-2013 Doctor Com munity 10:170500 [facility] (05544) Height 177.8 cm (no code) cm 03-10-2018 DENISE GAULT Com munity 16:400400 [address] [place] [address] (25279) Height 177.8 cm (no code) cm 09-24-2017 DENISE GAULT Com munity 11:000500 [address] [place] [address] (64747) Weight 89.54 kg (no code) kg 03-10-2018 DENISE GAULT Com munity 16:40-[address] [place] [address] (06157) Weight 89.81 kg (no code) kg 09-24-2017 DENISE GAULT Com munity 11:000500 [address] [place] [address] (71758) Interventions No Information Plan of Treatment The data below is from unstructured sources Discharge Date 10/04/16 1:20pm Instructions/Education Provided CARD IAC CATH DISCHARGE INSTRUC Prescriptions See Medication Section Discharge Date 12/15/16 2:35pm Disposition 01 HOME, SELF-CARE Condition at Discharge Stable Instructions/Education Provided Gout (DC) Prescriptions See Medication Section Referrals DENISE HILL MD Order Date: Primary Care Physician Address: [address] [place] [id number] Additional Instructions/Education 1. Return to ER for [...] Care Provi loretta Organization Date Type 10-02-2019 [facility] Dysuria NAMRATA JOHN (no [facility] - phone) (no phone) 10-02-2019 - 10-02-2019 09-22-2019 [facility] Malignant neoplasm of H MAY HILL (no phone) [facility] - unspecified site of (no phone) 09-22-2019 left female breast - 09-22-2019 09-15-2017 Emergency department no information no name (no dayanara ne) no organization name patient visit (no phone) 12-15-2016 Emergency department no information BRIAN SEO (no [facility] - patient visit phone) [facility] 12-15-2016 (no phone) 09-15-2017 Evaluation and no information no name (no phone) n o organization name - management of (no phone) 09-16-2017 inpatient 09-15-2017 Evaluation and no information no name (no phone) n o organization name - management of (no phone) 09-16-2017 inpatient 09-15-2017 Evaluation and no information DENISE HILL MD (no [facility] - management of phone) [facility] 09-16-2017 inpatient (no phone) 03-10-2018 Patient [...] phone) no organ ization name (no phone) 10-28-2019 Patient encounter no information JILLIAN CARRANZA DO ( no [facility] - procedure phone) [facility] 10-28-2019 (no phone) 10-27-2019 Patient encounter no information GLYNN PERRY MD (no [facility] procedure phone) JILLIAN Martinez [facility] DO (no phone) JILLIAN Martinez (no phone) DILLON DO (no phone) JILLIAN Martinez DELMAN DO (no phone) GLYNN PERRY MD (no phone) 10-23-2019 Patient encounter no information GLYNN PERRY MD (no [facility] procedure phone) [facility] (no phone) 10-19-2019 Patient encounter no information GLYNN PERRY MD (no [facility] procedure phone) [facility] (no phone) 10-08-2019 Patient encounter no information GLYNN PERRY MD (no [facility] procedure phone) [facility] (no phone) 10-02-2019 Patient encounter no information GLYNN PERRY MD (no [facility] procedure phone) DENISE GABRIEN (no Hospital - [facility] phone) (no phone) (no phone) 09-22-2019 Patient encounter no information (no phone) [facility] (no phone) 08-18-2019 Patient encounter no information OMAYRA ADAMS (no [facility] phone[facility] (no 08-18-2019 phone) 06-22-2019 Patient encounter no information no name (no phone) no organization name procedure (no phone) 05-07-2019 Patient encounter no information no name (no phone) no organization name procedure (no phone) 04-29-2019 Patient encounter no information no name (no phone) no organization name procedure (no phone) 04-29-2019 Patient encounter no information NAMRATA LOPEZ [facility] procedure METAL PICKLING EQUIPMENT OPERATOR (no phone) [facility] (no phone) 04-15-2019 Patient encounter no information NAMRATA LOPEZ [facility] [address] procedure METAL PICKLING EQUIPMENT OPERATOR (no phone) [facility] (no phone) 03-10-2019 Patient encounter no information [...] phone) 09-09-2018 Patient encounter no information FORREST SHIELDS JOB PRESS FEEDER [facility] procedure (no phone) [facility] (no phone) 02-07-2018 Patient encounter no information FORREST ZARTAEMA AR JOB PRESS FEEDER [facility] [address] procedure (no phone) [facility] (no phone) 08-07-2017 Patient encounter no information FORREST Walker BAIMA AR JOB PRESS FEEDER [facility] procedure (no phone) [facility] (no phone) 04-16-2017 Patient encounter no information EMMANUEL MATHEW MA FSCA I [facility] [address] procedure (no phone) [facility] (no phone) 04-08-2017 Patient encounter no information DENISE HILL MD ( no [facility] [address] procedure phone) [facility] (no phone) 02-06-2017 Patient encounter no information FORREST SEGAL AR JOB PRESS FEEDER [facility] [address] procedure (no phone) [facility] (no phone) 12-15-2016 Patient encounter no information no name (no phone) no organization name procedure (no phone) 11-06-2016 Patient encounter no information EMMANUEL MATHEW MA FSCA I [facility] procedure (no phone) [facility] (no phone) 10-08-2016 Patient encounter no information FORREST ZARATEMA AR JOB PRESS FEEDER [facility] [address] procedure (no phone) [facility] (no phone) 10-02-2016 Patient encounter no information EMMANUEL MATHEW MA FSCA I [facility] [address] - procedure (no phone) [facility] 10-04-2016 (no phone) 10-20-2019 Telephone encounter Old myocardial DENISE HILL (no phone) [facility] infarction (no phone) 10-28-2019 no information Encounter for other no name (no phon e) no organization name preprocedural (no phone) examination 10-28-2019 no information Encounter for other no name (no phon e) no organization name preprocedural (no phone) examination Medical Equipment No Information Payers Normalized Payer Value Medicaid no information Self-pay no information History general Narrative - Reported Note Type Note Facility History general Narrative - Reported Type Medical Hyperlipidemia History Medical Myocardial Infarction (Hx 0 09/2016) 2 stents placed in RCA by DR MATHEW History Surgical Heart Cath 2016 History Surgical Cholecystectomy 1985 History Hospitaliz Chest pain-[facility] 09/15/17 ation History [facility] ([id number]) History general Narrative - Reported Note Type Note Facility History general Narrative - Reported Type Medical Hyperlipidemia History Medical Myocardial Infarction (Hx 0 09/2016) 2 stents placed in RCA by DR MATHEW History Surgical Heart Cath 2017 History Surgical Cholecystectomy 1985 History Surgical Left mastectomy 07/06/2019 History Hospitaliz Chest pain-[facility] 09/15/17 ation History [facility] Post-mastectomy 07/06-07/07 ation /2018 History [facility] ([id number]) Discharge Instructions Patient Instructions Physician Instructions New, [...] This clinical document has been generated using [employer] software that has been certified by the Office of the National Coordinator for Health Information Technology (ONC 15.99.04.3023.Diam.31.00.0.070968) and the National Committee for Brim Curler (NCQA, as an eMeasure certified technology). FOR [...] BASED ON T HE PRIMARY CLINICAL RECORDS. [employer] provides no warranty or guara ntee of the accuracy or completeness of information in this document.The followi ng information is based on time limited clinical information UNRECOGNIZED CONTENT PROVIDED BELOW FOR UNRECOGNIZED SECTION MEDICAL (GENERAL) HISTORY Type Description Date Medical History Hyperlipidemia Medical History Miocardial Infarctio n (Hx 09/2016) 2 stents placed in RCA by DR MATHEW Surgical History Heart Cath 2017 Surgical History Cholecystectomy 1985 Hospitalization History Chest pain-[facility] 09/15/17 UNRECOGNIZED CONTENT PROVIDED BELOW FOR UNRECOGNIZED SECTION REASON FOR VISIT Refill requesteye examrefferalreferralDiabetes., Pt c/o Metformin is not working and it makes her short of breath when she takes it.-[id number]-Gpo
--- OUTSIDE RECORDS SUMMARY | 2019-10-30 07:47 | XMS REPORT | Encounter Summary ---
Author Author [facility] Organization [facility] Address Unknown Phone Unavailable Care Team Providers Care Petrophysicist Name Role Phone Sameera Smith MD PCP Reason for Referral * Radiology Services (Routine) Referred By Contact Referred To Contact Status Reason Specialty Diagnoses / [place] [address] [place] [address] Mri [address] [place] [address] Closed Radiology Diagnoses Invasive ductal carcinoma of left breast (HCC) Invasive lobular carcinoma of left breast in female (HCC) P rocedures MRI BREAST BILAT WO/W CONTRAST CHG MRI BREAST WITHOUT&WITH CONTRAST W/CAD BILATERAL Reason for Visit * Radiology Services (Routine) Referred By Contact Referred To Contact Status Reason Specialty Diagnoses / [place] [address] [place] [address] [address] [address] Closed Radiology Diagnoses Invasive ductal carcinoma of left breast (HCC) Invasive lobular carcinoma of left breast in female (HCC) P rocedures MRI BREAST BILAT WO/W CONTRAST CHG MRI BREAST WITHOUT&WITH CONTRAST W/CAD BILATERAL Encounter Details Care Team Description Date [place] [address] [place] [address] [phone] 05/28/[address] [place] [address] System [address] 1st [facility] [address] [place] [address] Social History Date Tobacco Use Types Packs/Day [...] (FISH OIL PO) mouth. 07/01/2019 mv,with 0 Hj-cntl-EF-lut-179herb (WOMENS MULTIVITAMIN HI POTENCY) 13.5-200-250 mg-mcg-mcg tab [...] 1:41 PM CDT) Specimen Impressions Performed At [facility] BI-RADS Assessments: BIRAD 6-Known biopsy prove n malignancy [facility] RECOMMENDATION: Follow-up with your physician of the le ft breast. Narrative Performed At Breast cancer [facility] [id number] MRI BREAST BILAT W/O W CONTRAST: MAY [...] signed and approved by: Seng Zambrano M.D. [id number] Procedure Note Interface, Radiant Results - 05/28/2019 4:34 PM CDT Breast cancer [id number] MRI BREAST BILAT W/O W CONTRAST: MAY 28, 2019 - Technologists: Alicja Modi, speedometer mechanic; Xuan Wagner Prior study comparison: April 29, [...] signed and approved by: Seng Zambrano M.D. [id number] IMPRESSION ACR BI-RADS Assessments: BIRAD 6-Known biopsy proven malignancy RECOMMENDATION: Follow-up with your physician of the left breast. Performing Organization Address [facility] one Number [facility] * [...] Basophil Count Specimen Blood Performing Organization Address [facility] one Number [facility] [address] [place] [address] * COMPREHENSIVE METABOLIC PANEL (05/28/2019 1:33 PM [...] 44 (L) >60 mL/min [facility] Comment: [place] The eGFR is not validated f or use in drug dosing adjustments. Continue to use estimated creatinine clearance per dosing reference text. Please contact the Clinical Pharmacist for questions. eGFR 53 (L) >60 mL/min [facility] Comment: The eGFR is not validated for use in drug dosing adjustments. Continue to use estimated creatinine clearance per dosing reference text. Please contact the Clinical Pharmacist for questions. Specimen Blood Performing Organization Address City/State/Zipcode Ph one Number [facility] [address] [place] [address] documented in this encounter Visit Diagnoses Diagnosis [...]
--- OUTSIDE RECORDS SUMMARY | 2019-10-30 07:47 | XMS REPORT | Encounter Summary ---
Author Author [facility] Organization [facility] Address Unknown Phone Unavailable Care Team Providers Care Advisory Application Developer Name Role Phone Sameera Smith MD PCP Reason for Visit * Reason Comments Navigation Assessment Encounter Details Care Team Description Date [place] [address] [place] [address] [phone] Navigation Assessment 05/20/2019 Telephone [facility] [address] [phone] Social History Date Tobacco Use Types Packs/Day [...] 05/28/2019 10:15 AM Rea Morgan MD [facility] Exam 05/28/2019 2:00 PM MRI - [place] (1.5T) [facility] Radiology 05/28/2019 3:30 PM Flavia Prescott MD [facility] Exam Diagnosis & Reason for Visit: Left breast invasive ductal carcinoma, 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 Referring Physician: Sameera Smith MD Contact Name & Number: Surgeon: N/A Medical Oncologist: N/A Radiation Oncologist: N/A PCP: Sameera Smith MD Location of Films: PACS Location of Pathology: Pathology slides, accession # [id number], were reques krupa on 05/25/19 from [facility] for collection and review, MAIL ED/PIECE DYEING MACHINE TENDER and Patient notified outside pathology slides will [...] biopsy in the that was benign at [facility]. Patient denies any other history of breast issues, surgeries or biopsies. TIMELINE: 04/15/19 Bilateral Diagnostic Mammogram Left Breast Ultrasound [facility] 04/29/19 Left Breast Ultrasound-Guided Biopsy Via [facility] A. 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 -Fibrocystic change with ductal epithelial hyperplasia with mild atypia. -Fibroadenoma. ER 90%, NM 90%, Ki-67: 20%, HER2/luis e: 0+ B. Breast, left at 3:00, needle biopsy: -Ductal carcinoma in situ. -Invasive lobular carcinoma. ER 90%, NM 80%, Ki-67: 14%, HER2/luis e: 0+ Family [...]
--- OUTSIDE RECORDS SUMMARY | 2019-10-30 07:47 | XMS REPORT ---
Author Author Ximean Torres Doctor Organization [facility] Address Unknown Phone Unavailable Care Team Providers Care Machine Deburrer Name Role Phone Migration, Doctor Unavailable Unavailable PROBLEMS Type Condition ICD9-CM Code AXI80-JR Code Onset Dates Condition S tatus SNOMED Code Problem ST elevation myocardial infarction involving rig ht coronary artery I21.11 Active 249563862 Problem Non-insulin dependent type 2 diabetes mellitus E11 .9 Active 27811921 Problem Tobacco abuse Z72.0 Active 324144 000 Problem Infiltrating ductal carcinoma of left breast C50.9 12 Active 410554740 Problem Interstitial cystitis N30.10 Active 069611266 Problem History of MS (myocardial infarction) I25.2 Active 509338000 Problem Post-menopausal bleeding N95.0 Activ e 66855259 Problem Coronary artery disease invo lving [place] coronary artery of [place] heart without angina pectoris I25.10 Active 1641 875488418 Problem Coronary artery disease invo lving [place] coronary artery of [place] heart without angina pectoris I25.10 Active 1641 [id number] ALLERGIES No Information ENCOUNTERS Encounter Location Date Diagnosis [place] [address] [address] [place] [id number] [place] [phone] 24 Sep, 2019 History of MS (myocardial in farction) I25.2 [place] [address] [facility] [id number] [address] [place] [phone] Sep, Dysuria R30.0 and Interstiti al cystitis N30.10 [place] [address] [facility] [id number] [address] [place] [address] Aug, Infiltrating ductal carcinom a of left breast C50.912 ; Non-insulin dependent type 2 diabetes mellitus E11.9 ; Dysuria R30.0 and BMI 28.0-28.9,adult Z68.28 [place] [address] [facility] [id number] [address] [place] [address] May, Possible urinary tract infec tion R39.89 ; Infiltrating ductal carcinoma of left breast C50.912 and Body mass index (BMI) of 25.0 to 29.9 E66.3 [place] [address] [facility] [id number] [address] [place] [address] Apr, [facility] [address] [facility] [id number] [address] [place] [address] Apr, [facility] [address] [facility] [id number] [address] [place] [address] Apr, [facility] [address] [facility] [id number] [address] [place] [address] Apr, Infiltrating ductal carcinom a of left breast C50.912 [place] [address] [facility] [id number] [address] [place] [phone] Apr, [place] [address] [facility] [id number] [address] [place] [address] Mar, [place] [address] [facility] [id number] [address] [place] [address] Mar, Encounter for screening for malignant neoplasm of colon Z12.11 and Encounter for screening for malignant neoplasm of rectum Z12.12 [place] [address] [facility] [id number] [address] [place] [phone] 10 Mar, 2019 Breast mass, left N63.20 and Bloody discharge from left nipple N64.52 [place] [address] [facility] [id number] [address] [place] [phone] 13 Feb, 2019 Non-insulin dependent type 2 diabetes mellitus E11.9 ; Coronary artery disease involving y[place] coronary artery of [place] heart without angina pectoris I25.10 ; Tobacco abuse Z72.0 ; Encounter for screening for malignant neoplasm of colon Z12.11 ; Encounter for screening for malignant neoplasm of rectum Z12.12 and Screening for breast cancer Z12.39 [place] [address] [facility] [id number] [address] [place] [phone] Aug, [place] [address] [facility] [id number] [address] [place] [phone] 14 Aug, 2018 Post-menopausal bleeding N95 .0 [facility] [address] [facility] [id number] [address] [place] [phone] 12 Aug, 2018 Non-insulin dependent type 2 diabetes mellitus E11.9 ; Tobacco abuse Z72.0 ; Post-menopausal bleeding N95.0 and History of MS (myocardial infarction) I25.2 [facility] [address] [facility] [id number] [address] [place] [address] Mar, [facility] [address] [facility] [id number] [address] [place] [address] Feb, Non-insulin dependent type 2 diabetes mellitus E11.9 ; History of MS (myocardial infarction) I25.2 and Tobacco abuse Z72.0 [place] [address] [facility] [id number] [address] [place] [phone] Jan, [place] [address] [facility] [id number] [address] [place] [address] Dec, [facility] [address] [facility] [id number] [address] [place] [address] Dec, [facility] [address] [facility] [id number] [address] [place] [phone] Dec, [facility] [address] [facility] [id number] [address] [place] [address] Aug, Non-insulin dependent type 2 diabetes mellitus E11.9 ; Atypical chest pain R07.89 and Tobacco use Z72.0 [facility] [address] [place] [id number] [place] [id number] Aug, [facility] [address] [facility] [id number] [address] [place] [address] Jun, [facility] [address] [facility] [id number] [address] [place] [address] May, Non-insulin dependent type 2 diabetes mellitus E11.9 ; Tobacco abuse Z72.0 and History of MS (myocardial infarction) I25.2 [facility] [address] [id number] [address] [place] [address] Mar, Dysphagia, unspecified type R13.10 ; Non-insulin dependent type 2 diabetes mellitus E11.9 and Tobacco abuse Z72.0 [facility] [address] [id number] [address] [place] [phone] Feb, Non-insulin dependent type 2 diabetes mellitus E11.9 ; Dysphagia, unspecified type R13.10 and Tobacco abuse Z72.0 [facility] [address] [id number] [address] [place] [phone] Feb, [facility] [address] [id number] [address] [place] [id number] Jan, [facility] [address] [id number] [address] [place] [phone] Dec, [facility] [address] [id number] [address] [place] [address] Oct, [facility] [address] [id number] [address] [place] [address] Sep, ST elevation myocardial infa rction involving right coronary artery I21.11 ; Tobacco abuse Z72.0 and Non-insulin dependent type 2 diabetes mellitus E11.9 [facility] [address] [id number] [address] [place] [phone] Oct, [facility] [address] [id number] [address] [place] [phone] Oct, [facility] [address] [id number] [address] [place] [phone] Feb, [facility] [address] [id number] [address] [place] [phone] Feb, [facility] [address] [id number] [address] [place] [phone] Jan, [facility] [address] [id number] [address] [place] [address], [place] [address] 14 Jan, 2014 [facility] [address] [id number] [address] [place] [address], [place] [address] 14 Jan, 2014 [facility] [address] [id number] [address] [place] [address], [place] [address] 14 Jan, 2014 [facility] [address] [id number] [address] [place] [address], [place] [address] 03 Aug, 2013 [facility] [address] [id number] [address] [place] [address], [place] [address] Aug, [facility] [address] [id number] [address] [place] [address], [place] [address] Jul, [facility] [address] [id number] [address] [place] [address], [place] [address] Jul, [facility] [address] [id number] [address] [place] [address], [place] [address] Jul, [facility] [address] [id number] [address] [place] [address], [place] [address] Jul, [facility] [address] [id number] [address] [place] [address], [place] [address] Dec, [facility] [address] [id number] [address] [place] [address], [place] [address] Dec, [facility] [address] [id number] [address] [place] [address], [place] [address] November, [facility] [address] [id number] [address] [place] [address], [place] [address] November, [facility] [address] [id number] [address] [place] [address], [place] [address] November, [facility] [address] [id number] [address] [place] [address], [place] [address] Sep, [facility] [address] [id number] [address] [place] [address], [place] [address] May, [facility] [address] [id number] [address] [place] [address], [place] [address] May, [facility] [address] [id number] [address] [place] [address], [place] [address] May, [facility] [address] [id number] [address] [place] [address], [place] [address] May, [facility] [address] [id number] [address] [place] [address], [place] [address] May, [facility] [address] [id number] [address] [place] [address], [place] [address] May, [facility] [address] [id number] [address] [place] [address], [place] [address] May, [facility] [address] [id number] [address] [place] [address], [place] [address] May, [facility] [address] [id number] [address] [place] [address], [place] [address] Apr, [facility] [address] [id number] [address] [place] [address], [place] [address] Apr, [facility] [address] [id number] [address] [place] [address] Feb, [facility] [address] [id number] [address] [place] [address] Feb, [facility] [address] [id number] [address] [place] [address] Dec, [facility] [address] [id number] [address] [place] [address], [place] [address] November, [facility] [address] [id number] [address] [place] [address], [place] [address] November, [facility] [address] [id number] [address] [place] [address], [place] [address] Oct, [facility] [address] [id number] [address] [place] [phone] 10 Aug, 2011 [facility] [address] [facility] [id number] [address] [place] [address] 10 Aug, 2011 [facility] [address] [facility] [id number] [address] [place] [address] Jun, [facility] [address] [facility] [id number] [address] [place] [phone] May, [facility] [address] [facility] [id number] [address] [place] [address] May, [facility] [address] [facility] [id number] [address] [place] [address] Jan, [facility] [address] [facility] [id number] [address] [place] [phone] Oct, IMMUNIZATIONS No Known Immunizations SOCIAL HISTORY Never Assessed REASON FOR VISIT PLAN OF CARE VITAL SIGNS Height 70 in 2013-08-04 Weight 199 lbs 2013-08-04 Temperature 98.6 degrees Fahrenheit 2013-08-04 Heart Rate 72 bpm 2013-08-04 Respiratory Rate 16 2013-08-04 Blood pressure systolic 124 mmHg 2013-08-04 Blood pressure diastolic 76 mmHg 2013-08-04 MEDICATIONS Unknown Medications RESULTS No Results PROCEDURES Procedure Date Ordered Result Body Site GLYCATED HEMOGLOBIN TEST Aug 04, 2013 MICROALBUMIN, SEMIQUANT Aug 04, 2013 MICROALBUMIN, QUANTITATIVE Aug 04, 2013 LIPID PANEL Aug 04, 2013 COMPREHEN METABOLIC PANEL Aug 04, 2013 VENIPUNCT, ROUTINE* Aug 04, 2013 INSTRUCTIONS MEDICATIONS ADMINISTERED No Known Medications MEDICAL (GENERAL) HISTORY Type Description Date Medical History Hyperlipidemia Medical History Myocardial Infarction (Hx ) 2 stents placed in RCA by DR MACHADO Surgical History Heart Cath 2016 Surgical History Cholecystectomy 1985 Surgical History Left mastectomy 07/06/2019 Hospitalization History Chest pain-[facility] 09/15/17 Hospitalization History Post-mastectomy 07/06-07/07/2019
--- OUTSIDE RECORDS SUMMARY | 2019-10-30 07:47 | XMS REPORT | Encounter Summary ---
Author Author [facility] Organization [facility] Address Unknown Phone Unavailable Care Team Providers Care Crushed Stone Grader Name Role Phone Sameera Smith MD PCP Reason for Referral * Radiology Services (Routine) Referred By Contact Referred To Contact Status Reason Specialty Diagnoses / Procedures Ella Millan APRN-TRAFFIC CONTROL SIGNALER [address] [place] [address] Gen Radiology [address] [place] [address] [address] [place] [address] No Auth Needed Radiology Diagnoses At risk for osteopenia P rocedures BONE DENSITY SPINE/HIP * Radiology Services (Routine) Referred By Contact Referred To Contact Status Reason Specialty Diagnoses / Procedures Ella Millan APRN-NP [address] [place] [address] Nuclear Med [address] [place] [address] No Auth Needed Radiology Diagnoses Infiltrating ductal carcinoma of left breast (HCC) Elevated alkaline phosphatase level P rocedures NM BONE SCAN WHOLEBODY Reason for Visit * Reason Comments Cancer * Consult, Test & Treat (Routine) Referred By Contact Referred To Contact Status Reason Specialty Diagnoses / Procedures Sameera Smith MD [address] [place] [address] Flavia Prescott MD [address] [place] [address] No Auth Needed Medical Oncology Diagnoses / Oncology Left breast IDC, DCIS and ILC, [employer], Referred by Dr. Sameera Smith, JOSÉ MIGUEL:TRINITY/MARCUS ramsay NEW PATIENT Encounter Details Care Team Description Date Type Department Flavia Prescott MD [address] [place], [place] [id number] Infiltrating ductal carcinoma of left br east (HCC) (Primary Dx); Elevated alkaline phosphatase level; At risk for osteopenia; Malignant neoplasm of upper-outer quadrant of left breast in female, estrogen receptor positive (HCC) 05/28/2019 Office Visit [facility] Cancer [address] [address] Social History Date Tobacco Use Types Packs/Day [...] Julie French, RN Contact information: Office phone: [phone] Office fax: [phone] After hours phone: [phone] Address: [address] [place] [address], [address] [place] [address] documented in this encounter Progress Notes * Flavia Prescott MD - 05/28/2019 3:30 PM CDT Name: Ximena William : 1955 AGE: 64 y.o. DATE OF SERVICE: 05/28/2019 Subjective: Reason for Visit: Cancer DIAGNOSIS: Left, grade II IDC at 12:00 (ER 90%, IL 90%, Her2 0+, Ki-67: 20%) and left, grade II ILC at 3:00 (ER 90%, IL 80%, Her2 0+, Ki-67: 14%) 04/29/19 STAGE: [id number] History of Present Illness Ximena William is a 64 y.o. female diagnosed with left breast cancer. Pat ient reports palpating a left breast mass "years ago" that was not bothersome. Over the last few months she has developed spontaneous nipple discharge. She valverde d a bilateral diagnostic mammogram 04/15/19 ([place], [place]) which an asymmetric d ensity in [...] areas of concern were biopsied 04/29/19 ([facility]). Pathology a t 12:00 grade II invasive ductal carcinoma (ER 90%, IL 90%, Her2 0+, Ki-67: 20%) with DCIS. The 3:00 biopsy revealed grade II invasive lobular carcinoma (ER 90 %, IL 80%, Her2 0+, Ki-67: 14%). She was [...] patient is not nervous/anxious. PMH: Hx of VT in 2017 (stent placed), , hyperlipidemia, HTN, Type II DM. Cardiol ogallyson is Dr. Mathew in [place], [place] FAMILY HX: Sister with breast cancer in her 40's (genetic testing negative), ni sandee with breast cancer in her 40's (brother's daughter), and father had prostate cancer . No history of ovarian cancer SOCIAL HX: current everyday smoker 1 PPD x 43 years. 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 Menopause age 47, no [...] Take 2.5 mg by mouth daily. mv,with Qg-yzhm-RZ-lut-179herb (WOMENS MULTIVITAMIN HI POTENCY) 13.5-200-250 mg-mcg-mcg tab [...] grade II IDC at 12:00 (ER 90%, IL 90%, Her2 0+, Ki-67: 20%) and left, grade II ILC at 3:00 (ER 90%, IL 80%, Her2 0 +, Ki-67: 14%). CT3N0. Prognosis and treatment options were discussed with the p ariana and her family. Breast cancer specific prognostic markers (ER, IL, HER-2/ luis e) were also discussed with them. At this time we recommend proceeding to surgery. Adjuvant therapy decisions will be made based on surgical pathology. Adjuvant endocrine therapy will be recomme nded. Will discuss need for adjuvant chemotherapy and utilization of oncotype Dx based on final surgical pathology 2. terminal gauger supervisor plan will include at least 5 years [...] be done as part of a Panel. [employer] [facility] john includes BRCA1/2 and an additional 25 other cancer related genes (BRCA1, BRC A2, MLH1, MSH2, MSH6, PMS2, EPCAM, APC, MUTYH, CDKN2A, PALB2, STK11, PTEN, TP53, DCH1, BMPR1A, SMAD4, JOHANN, BARD1, BRIP1, CDK4, CHEK2, NBN, RAD51C, and RAD51D). This comprehensive [employer] panel provides information on clinically actionable a [...] scan now 6. Multiple co morbidities including VT, chronic smoker, diabetes, HLD, HTN. Ai llows with [facility] in [place], [place]. If bone scan is negative, RTC [...] and other co-morbidities . Flavia Prescott MD ONOPHYSICIST documented in this encounter Plan of Treatment Not on filedocumented as of this encounter Results * NM BONE SCAN WHOLEBODY (06/29/2019 11:39 AM TECTONOPHYSICIST) Specimen Impressions Performed At 1. No scintigraphic [...] Interface, Radiant Results - 06/29/2019 5:34 PM TECTONOPHYSICIST BONE SCINTIGRAPHY (WHOLE-BODY) Radiopharmaceutical: 26.7 mCi IV [...] * BONE DENSITY SPINE/HIP (06/29/2019 8:05 AM TECTONOPHYSICIST) Specimen Impressions Performed At Normal bone mineral [...] spine and bilateral hips were performed with [employer]. Lumbar spine and hip with lowest [...] below) *Based on region with lowest bone muck miner al density. Procedure Note Interface, Radiant Results - 06/29/2019 8:41 AM TECTONOPHYSICIST BONE DENSITOMETRY CLINICAL INDICATION: 64 year old female, breast cancer, bone health, at risk for osteopenia COMPARISON: None FINDINGS: DEXA scan of the lumbar spine and bilateral hips were performed with [employer]. Lumbar spine and hip with lowest T-score [...]
--- OUTSIDE RECORDS SUMMARY | 2019-10-30 07:47 | XMS REPORT | Encounter Summary ---
Author Author [facility] Organization [facility] Address Unknown Phone Unavailable Care Team Providers Care Membership Advisor Name Role Phone PCP Unavailable Reason for Referral * Radiology Services (Routine) Referred By Contact Referred To Contact Status Reason Specialty Diagnoses / [place] [address] [place] [address] [facility] [place] [address] Closed Radiology Diagnoses Invasive ductal carcinoma of left breast (HCC) Invasive lobular carcinoma of left breast in female (HCC) P rocedures MRI BREAST BILAT WO/W CONTRAST CHG MRI BREAST WITHOUT&WITH CONTRAST W/CAD BILATERAL Encounter Details Care Team Description [place] [address] [place] [address] [phone] Invasive ductal carcinoma of left breast (HCC) (Primary Dx); Invasive lobular carcinoma of left breast in female (HCC) 05/20/2019 Orders Only [facility] [address] [place] [address] Social History Date Tobacco Use Types Packs/Day [...] 1:41 PM CDT) Specimen Impressions Performed At [facility] BI-RADS Assessments: BIRAD 6-Known biopsy prove n malignancy [facility] RAD RESULTS RECOMMENDATION: Follow-up with your physician of the le ft breast. Narrative Performed At Breast cancer [facility] RAD RESULTS [id number] MRI BREAST BILAT W/O W CONTRAST: MAY [...] signed and approved by: Seng Zambrano M.D. [id number] Procedure Note Interface, Radiant Results - 05/28/2019 4:34 PM CDT Breast cancer [id number] MRI BREAST BILAT W/O W CONTRAST: MAY 28, 2019 - Technologists: Alicja Modi, weft straightener; Xuan Wagner Prior study comparison: April 29, [...] signed and approved by: Seng Zambrano M.D. [id number] IMPRESSION ACR BI-RADS Assessments: BIRAD 6-Known biopsy [...]
--- OUTSIDE RECORDS SUMMARY | 2019-10-30 07:49 | XMS REPORT | Continuity of Care Document ---
[...] mg Tablet Drug Allergy 03/06/2012 Yes acetaminophen [id number] Félix g Allergy Unknown N/A 10/02/2016 Medications [...] ALI FACP CCDS Ot I21.19 STEMI INVOLVING [facility] CORONARY ARTERY OF I 10/04/2016 JEANNETTE MOSS FACC, ALI FACP CCDS Ot I25.10 ATHSCL HEART DISEASE OF [place] CORONARY 10/04/2016 JEANNETTE MOSS FACC, ALI FACP CCDS Ot I25.5 ISCHEMIC CARDIOMYOPATHY 10/04/2016 JEANNETTE MOSS FACC, ALI FACP CCDS Ot I47.2 VENTRICULAR TACHYCARDIA 10/04/2016 JEANNETTE MOSS FACC, ALI FACP CCDS Ot Z72.0 TOBACCO USE 10/04/2016 JEANNETTE MOSS FACC, ALI FACP CCDS Ot Z91.19 PATIENT'S NONCOMPLIANCE W [facility] MEDICAL TR 10/05/2016 ANGI BO Ot 461 .9 ACUTE SINUSITIS NOS 10/05/2016 ANGI BO Ot 461 .9 ACUTE SINUSITIS NOS 10/08/2016 ANGI BO Ot 461 .9 ACUTE SINUSITIS NOS 10/09/2016 BAIMA, FORREST L MEETING SPECIALIST Ot I25.10 ATHSCL HEART DISEASE OF [place] CORONARY 10/09/2016 BAIMA, FORREST L MEETING SPECIALIST Ot I25.5 ISCHEMIC CARDIOMYOPATHY 10/09/2016 BAIMA, FORREST L MEETING SPECIALIST Ot I25.10 ATHSCL HEART DISEASE OF [place] CORONARY 10/09/2016 BAIMA, FORREST L MEETING SPECIALIST Ot I25.5 ISCHEMIC CARDIOMYOPATHY 10/10/2016 BAIMA, FORREST L MEETING SPECIALIST Ot I25.10 ATHSCL HEART DISEASE OF [place] CORONARY 10/10/2016 BAIMA, FORREST L MEETING SPECIALIST Ot I25.5 ISCHEMIC CARDIOMYOPATHY 10/30/2016 BAIMA, FORREST L MEETING SPECIALIST Ot I25.10 ATHSCL HEART DISEASE OF [place] CORONARY 10/30/2016 BAIMA, FORREST L MEETING SPECIALIST Ot I25.5 ISCHEMIC CARDIOMYOPATHY 10/30/2016 ANGI BO Ot 461 .9 ACUTE SINUSITIS NOS 10/30/2016 BAIMA, FORREST L MEETING SPECIALIST Ot I25.10 ATHSCL HEART DISEASE OF [place] CORONARY 10/30/2016 BAIMA, FORREST L MEETING SPECIALIST Ot I25.5 ISCHEMIC CARDIOMYOPATHY 11/06/2016 ANGI BO Ot 461 .9 ACUTE SINUSITIS NOS 11/06/2016 BAIMA, FORREST L MEETING SPECIALIST Ot I25.10 ATHSCL HEART DISEASE OF [place] CORONARY 11/06/2016 BAIMA, FORREST L MEETING SPECIALIST Ot I25.5 ISCHEMIC CARDIOMYOPATHY 11/07/2016 JEANNETTE MOSS FACC, EMMANUEL FACP CCDS Ot E78.4 OTHER HYPERLIPIDEMIA 11/07/2016 JEANNETTE MOSS FACC, ALI FACP CCDS Ot I25.10 ATHSCL HEART DISEASE OF [place] CORONARY 11/07/2016 JEANNETTE MOSS FACC, ALI FACP CCDS Ot R53.83 OTHER FATIGUE 11/07/2016 JEANNETTE MOSS FACC, ALI FACP CCDS Ot Z72.0 TOBACCO USE 11/19/2016 JEANNETTE MOSS FACC, ALI FACP CCDS Ot E78.4 OTHER HYPERLIPIDEMIA 11/19/2016 JEANNETTE MOSS FACC, ALI FACP CCDS Ot I25.10 ATHSCL HEART DISEASE OF [place] CORONARY 11/19/2016 JEANNETTE MOSS FACC, ALI FACP CCDS Ot R53.83 OTHER FATIGUE 11/19/2016 JEANNETTE MOSS FACC, ALI FACP CCDS Ot Z72.0 TOBACCO USE 12/15/2016 BRIAN JENKINS PRODUCT REPRESENTATIVE Ot E11 .9 TYPE 2 DIABETES MELLITUS WITHOUT COMPLIC 12/15/2016 BRIAN JENKINS PRODUCT REPRESENTATIVE Ot F17.210 NICOTINE DEPENDENCE, CIGARETTES, UNCOMPL 12/15/2016 BRIAN JENKINS PRODUCT REPRESENTATIVE Ot I10 ESSENTIAL (PRIMARY) HYPERTENSION 12/15/2016 BRIAN JENKINS PRODUCT REPRESENTATIVE Ot I25 .2 OLD MYOCARDIAL INFARCTION 12/15/2016 BRIAN JENKINS PRODUCT REPRESENTATIVE Ot 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, LEFT ANKLE AND FOOT 12/15/2016 BRIAN JENKINS PRODUCT REPRESENTATIVE Ot M79.672 PAIN IN LEFT FOOT 12/15/2016 BRIAN JENKINS PRODUCT REPRESENTATIVE Ot Z79.02 CALL CENTER DISPATCHER (CURRENT) USE OF 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 12/15/2016 BRIAN JENKINS PRODUCT REPRESENTATIVE Ot Z79.899 OTHER INTERMEDIATE (CURRENT) DRUG THERAPY 12/16/2016 ANGI BO Ot 461 .9 ACUTE SINUSITIS NOS 12/16/2016 FORREST SEGAL MEETING SPECIALIST Ot I25.10 ATHSCL HEART DISEASE OF [place] CORONARY 12/16/2016 FORREST SEGAL MEETING SPECIALIST Ot I25.5 ISCHEMIC CARDIOMYOPATHY 12/16/2016 JEANNETTE MOSS [facility], ALI FACP CCDS Ot E78.4 OTHER HYPERLIPIDEMIA 12/16/2016 JEANNETTE MOSS [facility], ALI FACP CCDS Ot I25.10 ATHSCL HEART DISEASE OF [place] CORONARY 12/16/2016 JEANNETTE MOSS [facility], ALI FACP CCDS Ot R53.83 OTHER FATIGUE 12/16/2016 JEANNETTE MOSS [facility], ALI FACP CCDS Ot Z72.0 TOBACCO USE 12/20/2016 BRIAN JENKINS PRODUCT REPRESENTATIVE Ot E11 .9 TYPE 2 DIABETES MELLITUS WITHOUT COMPLIC 12/20/2016 BRIAN JENKINS PRODUCT REPRESENTATIVE Ot F17.210 NICOTINE DEPENDENCE, CIGARETTES, UNCOMPL 12/20/2016 BRIAN JENKINS PRODUCT REPRESENTATIVE Ot I10 ESSENTIAL (PRIMARY) HYPERTENSION 12/20/2016 BRIAN JENKINS PRODUCT REPRESENTATIVE Ot I25 .2 OLD MYOCARDIAL INFARCTION 12/20/2016 BRIAN JENKINS PRODUCT REPRESENTATIVE Ot 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, LEFT ANKLE AND FOOT 12/20/2016 BRIAN JENKINS PRODUCT REPRESENTATIVE Ot M79.672 PAIN IN LEFT FOOT 12/20/2016 BRIAN JENKINS APRN Ot Z79.02 INTERMEDIATE (CURRENT) USE OF 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 12/20/2016 BRIAN JENKINS PRODUCT REPRESENTATIVE Ot Z79.899 OTHER CALL CENTER DISPATCHER (CURRENT) DRUG THERAPY 01/03/2017 ANGI BO Ot 461 .9 ACUTE SINUSITIS NOS 01/03/2017 LUZMA FORREST L MEETING SPECIALIST Ot I25.10 ATHSCL HEART DISEASE OF [place] CORONARY 01/03/2017 BAIMASOPHIAFORREST L MEETING SPECIALIST Ot I25.5 ISCHEMIC CARDIOMYOPATHY 01/03/2017 JEANNETTE MOSS FACC, ALI FACP CCDS Ot E78.4 OTHER HYPERLIPIDEMIA 01/03/2017 JEANNETTE MOSS FACC, ALI FACP CCDS Ot I25.10 ATHSCL HEART DISEASE OF [place] CORONARY 01/03/2017 JEANNETTE MOSS FACC, ALI FACP CCDS Ot R53.83 OTHER FATIGUE 01/03/2017 JEANNETTE MOSS FACC, ALI FACP CCDS Ot Z72.0 TOBACCO USE 02/06/2017 ANGI BO Ot 461 .9 ACUTE SINUSITIS NOS 02/06/2017 BAIMA, FORREST L MEETING SPECIALIST Ot I25.10 ATHSCL HEART DISEASE OF [place] CORONARY 02/06/2017 BAIMA FORREST L MEETING SPECIALIST Ot I25.5 ISCHEMIC CARDIOMYOPATHY 02/06/2017 JEANNETTE MOSS FACC, ALI FACP CCDS Ot E78.4 OTHER HYPERLIPIDEMIA 02/06/2017 JEANNETTE MOSS FACC, ALI FACP CCDS Ot I25.10 ATHSCL HEART DISEASE OF [place] CORONARY 02/06/2017 JEANNETTE MOSS FACC, ALI FACP CCDS Ot R53.83 OTHER FATIGUE 02/06/2017 JEANNETTE MOSS FACC, ALI FACP CCDS Ot Z72.0 TOBACCO USE 02/13/2017 BAIMA, FORREST L MEETING SPECIALIST Ot E78.4 OTHER HYPERLIPIDEMIA 02/13/2017 BAIMA, FORREST L MEETING SPECIALIST Ot I25.10 ATHSCL HEART DISEASE OF [place] CORONARY 04/08/2017 ANGI BO Ot 461 .9 ACUTE SINUSITIS NOS 04/08/2017 BAIMA FORREST L MEETING SPECIALIST Ot I25.10 ATHSCL HEART DISEASE OF [place] CORONARY 04/08/2017 BAIMA FORREST L MEETING SPECIALIST Ot I25.5 ISCHEMIC CARDIOMYOPATHY 04/08/2017 JEANNETTE MOSS FACC, ALI FACP CCDS Ot E78.4 OTHER HYPERLIPIDEMIA 04/08/2017 JEANNETTE HERNANDEZ, ALI FACP CCDS Ot I25.10 ATHSCL HEART DISEASE OF [place] CORONARY 04/08/2017 JEANNETTE MOSS FACC, ALI FACP CCDS Ot R53.83 OTHER FATIGUE 04/08/2017 JEANNETTE MOSS FACC, ALI FACP CCDS Ot Z72.0 TOBACCO USE 04/08/2017 BAIMA, FORREST L MEETING SPECIALIST Ot E78.4 OTHER HYPERLIPIDEMIA 04/08/2017 BAIMA, FORREST L MEETING SPECIALIST Ot I25.10 ATHSCL HEART DISEASE OF [place] CORONARY 04/24/2017 DENISE HILL MD Ot R13.1 0 DYSPHAGIA, UNSPECIFIED 04/24/2017 JEANNETTE MOSS [facility], ALI FACP CCDS Ot E78.4 OTHER HYPERLIPIDEMIA 04/24/2017 JEANNETTE MOSS FACC, ALI FACP CCDS Ot I25.10 ATHSCL HEART DISEASE OF [place] CORONARY 04/24/2017 JEANNETTE MOSS FACC, ALI FACP CCDS Ot Z72.0 TOBACCO USE 08/09/2017 BAIMA, FORREST L MEETING SPECIALIST Ot E78.4 OTHER HYPERLIPIDEMIA 08/09/2017 BAIMA, FORREST L MEETING SPECIALIST Ot I25.10 ATHSCL HEART DISEASE OF [place] CORONARY 09/15/2017 ANGI BO Ot 461 .9 ACUTE SINUSITIS NOS 09/15/2017 BAIMA, FORREST L MEETING SPECIALIST Ot I25.10 ATHSCL HEART DISEASE OF [place] CORONARY 09/15/2017 BAIMA, FORREST L MEETING SPECIALIST Ot I25.5 ISCHEMIC CARDIOMYOPATHY 09/15/2017 JEANNETTE HERNANDEZ, ALI FACP CCDS Ot E78.4 OTHER HYPERLIPIDEMIA 09/15/2017 JEANNETTE HERNANDEZ, ALI FACP CCDS Ot I25.10 ATHSCL HEART DISEASE OF [place] CORONARY 09/15/2017 JEANNETTE MOSS FACC, ALI FACP CCDS Ot R53.83 OTHER FATIGUE 09/15/2017 JEANNETTE MOSS FACC, ALI FACP CCDS Ot Z72.0 TOBACCO USE 09/15/2017 BAIMA, FORREST L MEETING SPECIALIST Ot E78.4 OTHER HYPERLIPIDEMIA 09/15/2017 BAIMA, FORREST L MEETING SPECIALIST Ot I25.10 ATHSCL HEART DISEASE OF [place] CORONARY 09/15/2017 DENISE HILL MD Ot R13.1 0 DYSPHAGIA, UNSPECIFIED 09/15/2017 JEANNETTE MOSS FAC, ALI FACP CCDS Ot E78.4 OTHER HYPERLIPIDEMIA 09/15/2017 JEANNETTE MOSS FACC, ALI FACP CCDS Ot I25.10 ATHSCL HEART DISEASE OF [place] CORONARY 09/15/2017 JEANNETTE HERNANDEZC, ALI FACP CCDS Ot Z72.0 TOBACCO USE 09/15/2017 BAIMA, FORREST L MEETING SPECIALIST Ot E78.4 OTHER HYPERLIPIDEMIA 09/15/2017 BAIMA, FORREST L MEETING SPECIALIST Ot I25.10 ATHSCL HEART DISEASE OF [place] CORONARY 09/15/2017 LAMONTE ZAMORANO, ANGI M Ot 461 .9 ACUTE SINUSITIS NOS 09/15/2017 BAIMA, FORREST L MEETING SPECIALIST Ot I25.10 ATHSCL HEART DISEASE OF [place] CORONARY 09/15/2017 BAIMA, FORREST L MEETING SPECIALIST Ot I25.5 ISCHEMIC CARDIOMYOPATHY 09/15/2017 JEANNETTE MOSS FACC, ALI FACP CCDS Ot E78.4 OTHER HYPERLIPIDEMIA 09/15/2017 JEANNETTE MOSS FACC, ALI FACP CCDS Ot I25.10 ATHSCL HEART DISEASE OF [place] CORONARY 09/15/2017 JEANNETTE MOSS FAC, ALI FACP CCDS Ot R53.83 OTHER FATIGUE 09/15/2017 JEANNETTE MOSS FAC, ALI FACP CCDS Ot Z72.0 TOBACCO USE 09/15/2017 BAIMA, FORREST L MEETING SPECIALIST Ot E78.4 OTHER HYPERLIPIDEMIA 09/15/2017 BAIMA, FORREST L MEETING SPECIALIST Ot I25.10 ATHSCL HEART DISEASE OF [place] CORONARY 09/15/2017 DENISE HILL MD Ot R13.1 0 DYSPHAGIA, UNSPECIFIED 09/15/2017 JEANNETTE MOSS FAC, ALI FACP CCDS Ot E78.4 OTHER HYPERLIPIDEMIA 09/15/2017 JEANNETTE MOSS FAC, ALI FACP CCDS Ot I25.10 ATHSCL HEART DISEASE OF [place] CORONARY 09/15/2017 JEANNETTE MOSS FACC, ALI FACP CCDS Ot Z72.0 TOBACCO USE 09/15/2017 BAIMA, FORREST L MEETING SPECIALIST Ot E78.4 OTHER HYPERLIPIDEMIA 09/15/2017 BAIMA, FORREST L MEETING SPECIALIST Ot I25.10 ATHSCL HEART DISEASE OF [place] CORONARY 09/16/2017 DENISE HILL MD Ot E11.9 TYPE 2 DIABETES MELLITUS WITHOUT COMPLIC 09/16/2017 DENISE HILL MD Ot E78.5 HYPERLIPIDEMIA, UNSPECIFIED 09/16/2017 DENISE HILL MD Ot F17.2 10 NICOTINE DEPENDENCE, CIGARETTES, UNCOMPL 09/16/2017 DENISE HILL MD Ot I11.0 HYPERTENSIVE HEART DISEASE WITH HEART FA 09/16/2017 DENISE HILL MD Ot I25.1 0 ATHSCL HEART DISEASE OF [place] CORONARY 09/16/2017 DENISE HILL MD Ot I25.2 [...] 09/16/2017 DENISE HILL MD Ot Z79.8 2 INTERMEDIATE (CURRENT) USE OF ASPIRIN 09/16/2017 DENISE HILL MD Ot Z79.8 99 OTHER CALL CENTER DISPATCHER (CURRENT) DRUG THERAPY 09/16/2017 DENISE HILL MD Ot Z95.5 PRESENCE OF CORONARY ANGIOPLASTY IMPLANT 10/09/2017 FORREST SEGALP Ot E78.4 OTHER HYPERLIPIDEMIA 10/09/2017 FORREST SEGAL MEETING SPECIALIST Ot I25.10 ATHSCL HEART DISEASE OF [place] CORONARY 02/07/2018 ANGI BO Ot 461 .9 ACUTE SINUSITIS NOS 02/07/2018 FORREST SEGAL MEETING SPECIALIST Ot I25.10 ATHSCL HEART DISEASE OF [place] CORONARY 02/07/2018 FORREST SEGAL MEETING SPECIALIST Ot I25.5 ISCHEMIC CARDIOMYOPATHY 02/07/2018 JEANNETTE MOSS FACC, ALI DAVIDP CCDS Ot E78.4 OTHER HYPERLIPIDEMIA 02/07/2018 JEANNETTE MOSS FACHardy, ALI FACP CCDS Ot I25.10 ATHSCL HEART DISEASE OF [place] CORONARY 02/07/2018 JEANNETTE MOSS FACC, ALI FACP CCDS Ot R53.83 OTHER FATIGUE 02/07/2018 JEANNETTE MOSS FACC, ALI FACP CCDS Ot Z72.0 TOBACCO USE 02/07/2018 BAIMA, FORREST L MEETING SPECIALIST Ot E78.4 OTHER HYPERLIPIDEMIA 02/07/2018 BAIMA, FORREST L MEETING SPECIALIST Ot I25.10 ATHSCL HEART DISEASE OF [place] CORONARY 02/07/2018 LIZ MOSS, DENISE R Ot R13.1 0 DYSPHAGIA, UNSPECIFIED 02/07/2018 JEANNETTE MOSS FACC, ALI FACP CCDS Ot E78.4 OTHER HYPERLIPIDEMIA 02/07/2018 JEANNETTE MOSS FACC, ALI FACP CCDS Ot I25.10 ATHSCL HEART DISEASE OF [place] CORONARY 02/07/2018 JEANNETTE MOSS FACC, ALI FACP CCDS Ot Z72.0 TOBACCO USE 02/07/2018 BAIMA, FORREST L MEETING SPECIALIST Ot E78.4 OTHER HYPERLIPIDEMIA 02/07/2018 BAIMA, FORREST L MEETING SPECIALIST Ot I25.10 ATHSCL HEART DISEASE OF [place] CORONARY 2018 BAIMA, FORREST L MEETING SPECIALIST Ot E11.9 TYPE 2 DIABETES MELLITUS WITHOUT COMPLIC 2018 BAIMA, FORREST L MEETING SPECIALIST Ot E78.4 OTHER HYPERLIPIDEMIA 2018 BAIMA, FORREST L MEETING SPECIALIST Ot I25.10 ATHSCL HEART DISEASE OF [place] CORONARY 2018 BAIMA, FORREST L MEETING SPECIALIST Ot Z72.0 TOBACCO USE 09/10/2018 BAIMA, FORREST L MEETING SPECIALIST Ot E78.5 HYPERLIPIDEMIA, UNSPECIFIED 09/10/2018 BAIMA, FORREST L MEETING SPECIALIST Ot I25.10 ATHSCL HEART DISEASE OF [place] CORONARY 09/10/2018 BAIMA, FORREST L MEETING SPECIALIST Ot I34.0 NONRHEUMATIC MITRAL (VALVE) INSUFFICIENC 09/10/2018 BAIMA, FORREST L MEETING SPECIALIST Ot I77.9 DISORDER OF ARTERIES AND ARTERIOLES, UNS 09/11/2018 BAIMA, FORRETS L MEETING SPECIALIST Ot I25.10 ATHSCL HEART DISEASE OF [place] CORONARY 09/11/2018 BAIMA, FORREST L MEETING SPECIALIST Ot I25.5 ISCHEMIC CARDIOMYOPATHY 09/11/2018 JEANNETTE MOSS FACC, ALI FACP CCDS Ot E78.4 OTHER HYPERLIPIDEMIA 09/11/2018 JEANNETTE MOSS FACC, ALI FACP CCDS Ot I25.10 ATHSCL HEART DISEASE OF [place] CORONARY 09/11/2018 JEANNETTE HERNANDEZ, ALI FACP CCDS Ot R53.83 OTHER FATIGUE 09/11/2018 JEANNETTE HERNANDEZ, ALI FACP CCDS Ot Z72.0 TOBACCO USE 09/11/2018 BAIMA, FORREST L MEETING SPECIALIST Ot E78.4 OTHER HYPERLIPIDEMIA 09/11/2018 BAIMA, FORREST L MEETING SPECIALIST Ot I25.10 ATHSCL HEART DISEASE OF [place] CORONARY 09/11/2018 LIZ MOSS, DENISE R Ot R13.1 0 DYSPHAGIA, UNSPECIFIED 09/11/2018 JEANNETTE MOSS [facility], ALI FACP CCDS Ot E78.4 OTHER HYPERLIPIDEMIA 09/11/2018 JEANNETTE HERNANDEZ, ALI FACP CCDS Ot I25.10 ATHSCL HEART DISEASE OF [place] CORONARY 09/11/2018 JEANNETTE MOSS FACC, ALI FACP CCDS Ot Z72.0 TOBACCO USE 09/11/2018 BAIMA, FORREST L MEETING SPECIALIST Ot E78.4 OTHER HYPERLIPIDEMIA 09/11/2018 BAIMA, FORREST L MEETING SPECIALIST Ot I25.10 ATHSCL HEART DISEASE OF [place] CORONARY 09/11/2018 BAIMA, FORREST L MEETING SPECIALIST Ot E11.9 TYPE 2 DIABETES MELLITUS WITHOUT COMPLIC 09/11/2018 BAIMA, FORREST L MEETING SPECIALIST Ot E78.4 OTHER HYPERLIPIDEMIA 09/11/2018 BAIMA, FORREST L MEETING SPECIALIST Ot I25.10 ATHSCL HEART DISEASE OF [place] CORONARY 09/11/2018 BAIMA, FORREST L MEETING SPECIALIST Ot Z72.0 TOBACCO USE 09/11/2018 BAIMA, FORREST L MEETING SPECIALIST Ot E78.5 HYPERLIPIDEMIA, UNSPECIFIED 09/11/2018 BAIMA, FORREST L MEETING SPECIALIST Ot I25.10 ATHSCL HEART DISEASE OF [place] CORONARY 09/11/2018 BAIMA, FORREST L MEETING SPECIALIST Ot I34.0 NONRHEUMATIC MITRAL (VALVE) INSUFFICIENC 09/11/2018 BAIMA, FORREST L MEETING SPECIALIST Ot I77.9 DISORDER OF ARTERIES AND ARTERIOLES, UNS 09/18/2018 BAIMA, FORREST L MEETING SPECIALIST Ot E78.5 HYPERLIPIDEMIA, UNSPECIFIED 09/18/2018 BAIMA, FORREST L MEETING SPECIALIST Ot I25.10 ATHSCL HEART DISEASE OF [place] CORONARY 09/18/2018 LUZMA FORREST L MEETING SPECIALIST Ot I34.0 NONRHEUMATIC MITRAL (VALVE) INSUFFICIENC 09/18/2018 TESSAMA FORREST L MEETING SPECIALIST Ot I77.9 DISORDER OF ARTERIES AND ARTERIOLES, UNS 04/09/2019 LUZMA FORREST L MEETING SPECIALIST Ot I25.10 ATHSCL HEART DISEASE OF [place] CORONARY 04/09/2019 LUZMA FORREST L MEETING SPECIALIST Ot I25.5 ISCHEMIC CARDIOMYOPATHY 04/09/2019 JEANNETTE MOSS FAC, ALI FACP CCDS Ot E78.4 OTHER HYPERLIPIDEMIA 04/09/2019 JEANNETTE MOSS FAC, ALI FACP CCDS Ot I25.10 ATHSCL HEART DISEASE OF [place] CORONARY 04/09/2019 JEANNETTE MOSS FAC, ALI FACP CCDS Ot R53.83 OTHER FATIGUE 04/09/2019 JEANNETTE MOSS FAC, ALI FACP CCDS Ot Z72.0 TOBACCO USE 04/09/2019 BAIMA FORREST L MEETING SPECIALIST Ot E78.4 OTHER HYPERLIPIDEMIA 04/09/2019 BAIMA, FORREST L MEETING SPECIALIST Ot I25.10 ATHSCL HEART DISEASE OF [place] CORONARY 04/09/2019 LIZ MOSS, DENISE R Ot R13.1 0 DYSPHAGIA, UNSPECIFIED 04/09/2019 JEANNETTE MOSS [facility], ALI FACP CCDS Ot E78.4 OTHER HYPERLIPIDEMIA 04/09/2019 JEANNETTE MOSS FACC, ALI FACP CCDS Ot I25.10 ATHSCL HEART DISEASE OF [place] CORONARY 04/09/2019 JEANNETTE MOSS FACC, ALI FACP CCDS Ot Z72.0 TOBACCO USE 04/09/2019 BAIMA FORREST L MEETING SPECIALIST Ot E78.4 OTHER HYPERLIPIDEMIA 04/09/2019 BAIMA, FORREST L MEETING SPECIALIST Ot I25.10 ATHSCL HEART DISEASE OF E[place] CORONARY 04/09/2019 TESSAMA FORREST L MEETING SPECIALIST Ot E11.9 TYPE 2 DIABETES MELLITUS WITHOUT COMPLIC 04/09/2019 TESSAMA FORREST L MEETING SPECIALIST Ot E78.4 OTHER HYPERLIPIDEMIA 04/09/2019 BAIMA, FORREST L MEETING SPECIALIST Ot I25.10 ATHSCL HEART DISEASE OF E[place] CORONARY 04/09/2019 TESSAMA FORREST L MEETING SPECIALIST Ot Z72.0 TOBACCO USE 04/09/2019 LUZMA FORREST L MEETING SPECIALIST Ot E78.5 HYPERLIPIDEMIA, UNSPECIFIED 04/09/2019 BAIMA, FORREST L MEETING SPECIALIST Ot I25.10 ATHSCL HEART DISEASE OF [place] CORONARY 04/09/2019 BAIMA, FORREST L MEETING SPECIALIST Ot I34.0 NONRHEUMATIC MITRAL (VALVE) INSUFFICIENC 04/09/2019 BAIMA, FORREST L MEETING SPECIALIST Ot I77.9 DISORDER OF ARTERIES AND ARTERIOLES, UNS 05/12/2019 NAMRATA LOPEZ PRODUCT REPRESENTATIVE Ot C50.912 MALIGNANT NEOPLASM OF UNSPECIFIED SITE O 09/29/2019 BAIMA, FORREST L MEETING SPECIALIST Ot I25.10 ATHSCL HEART DISEASE OF [place] CORONARY 09/29/2019 BAIMA, FORREST L MEETING SPECIALIST Ot I25.5 ISCHEMIC CARDIOMYOPATHY 09/29/2019 JEANNETTE MOSS FAC, ALI FACP CCDS Ot E78.4 OTHER HYPERLIPIDEMIA 09/29/2019 JEANNETTE MOSS [facility], ALI FACP CCDS Ot I25.10 ATHSCL HEART DISEASE OF ELE[place] CORONARY 09/29/2019 JEANNETTE MOSS FAC, ALI FACP CCDS Ot R53.83 OTHER FATIGUE 09/29/2019 JEANNETTE MOSS FAC, ALI FACP CCDS Ot Z72.0 TOBACCO USE 09/29/2019 BAIMA, FORREST L MEETING SPECIALIST Ot E78.4 OTHER HYPERLIPIDEMIA 09/29/2019 BAIMA, FORREST L MEETING SPECIALIST Ot I25.10 ATHSCL HEART DISEASE OF ELEM CORONARY 09/29/2019 ILZ MOSS, DENISE R Ot R13.1 0 DYSPHAGIA, UNSPECIFIED 09/29/2019 JEANNETTE MOSS FAC, ALI FACP CCDS Ot E78.4 OTHER HYPERLIPIDEMIA 09/29/2019 JEANNETTE MOSS [facility], ALI FACP CCDS Ot I25.10 ATHSCL HEART DISEASE OF ELEM CORONARY 09/29/2019 JEANNETTE MOSS [facility], ALI FACP CCDS Ot Z72.0 TOBACCO USE 09/29/2019 BAIMA, FORREST L MEETING SPECIALIST Ot E78.4 OTHER HYPERLIPIDEMIA 09/29/2019 BAIMA, FORREST L MEETING SPECIALIST Ot I25.10 ATHSCL HEART DISEASE OF ELEM CORONARY 09/29/2019 BAIMA, FORREST L MEETING SPECIALIST Ot E11.9 TYPE 2 DIABETES MELLITUS WITHOUT COMPLIC 09/29/2019 BAIMA, FORREST L MEETING SPECIALIST Ot E78.4 OTHER HYPERLIPIDEMIA 09/29/2019 BAIMA, FORREST L MEETING SPECIALIST Ot I25.10 ATHSCL HEART DISEASE OF ELEM CORONARY 09/29/2019 BAIFORREST DOWLING MEETING SPECIALIST Ot Z72.0 TOBACCO USE 09/29/2019 FORREST SEGAL MEETING SPECIALIST Ot E78.5 HYPERLIPIDEMIA, UNSPECIFIED 09/29/2019 FORREST SEGAL MEETING SPECIALIST Ot I25.10 ATHSCL HEART DISEASE OF ELEM CORONARY 09/29/2019 FORREST SEGAL MEETING SPECIALIST Ot I34.0 NONRHEUMATIC MITRAL (VALVE) INSUFFICIENC 09/29/2019 FORREST SEGAL MEETING SPECIALIST Ot I77.9 DISORDER OF ARTERIES AND ARTERIOLES, UNS 09/29/2019 NAMRATA LOPEZ PRODUCT REPRESENTATIVE Ot C50.912 MALIGNANT NEOPLASM OF UNSPECIFIED SITE O 09/29/2019 NAMRATA LOPEZ PRODUCT REPRESENTATIVE Ot N63.20 UNSPECIFIED LUMP IN THE LEFT BREAST, UNS 09/29/2019 NAMRATA LOPEZ PRODUCT REPRESENTATIVE Ot R92.2 INCONCLUSIVE MAMMOGRAM 10/15/2019 GLYNN PERRY MD, Ot N63.32 UNSPECIFIED LUMP IN AXILLARY TAIL OF THE 10/15/2019 GLYNN PERRY MD, Ot Z85.3 PERSONAL HISTORY OF MALIGNANT NEOPLASM O 10/15/2019 GLYNN PERRY MD, Ot Z90.12 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 10/21/2019 GLYNN PERRY MD, Ot C50.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 10/21/2019 GLYNN PERRY MD, Ot R59.0 LOCALIZED ENLARGED LYMPH NODES 10/23/2019 GLYNN PERRY MD, Ot D05.02 LOBULAR CARCINOMA IN SITU OF LEFT BREAST 10/23/2019 GLYNN PERRY MD, Ot 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 10/23/2019 GLYNN PERRY MD, Ot E11.9 TYPE 2 DIABETES MELLITUS WITHOUT COMPLIC 10/23/2019 GLYNN PERRY MD Ot I10 ESSENTIAL (PRIMARY) HYPERTENSION 10/23/2019 GLYNN PERRY MD, Ot Z80.3 FAMILY HISTORY OF MALIGNANT NEOPLASM OF 10/23/2019 GLYNN PERRY MD Ot Z80.42 FAMILY HISTORY OF MALIGNANT NEOPLASM OF 10/27/2019 GLYNN PERRY MD, Ot D05.02 LOBULAR CARCINOMA IN SITU OF LEFT BREAST 10/27/2019 GLYNN PERRY MD Ot 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 10/27/2019 ORLANDO MD, MAKI Ot E11.9 TYPE 2 DIABETES MELLITUS WITHOUT COMPLIC 10/27/2019 GLYNN PERRY MD Ot I10 ESSENTIAL (PRIMARY) HYPERTENSION 10/27/2019 GLYNN PERRY MD Ot Z80.3 FAMILY HISTORY OF MALIGNANT NEOPLASM OF 10/27/2019 GLYNN PERRY MD Ot Z80.42 FAMILY HISTORY OF MALIGNANT NEOPLASM OF 10/28/2019 DELMAN DO, JILLIAN B Ot Z01.8 18 ENCOUNTER FOR OTHER PREPROCEDURAL EXAMIN 10/28/2019 DELMAN DO, JILLIAN B Ot Z01.8 18 ENCOUNTER FOR OTHER PREPROCEDURAL EXAMIN 10/28/2019 GLYNN PERRY MD Ot C50.919 MALIGNANT NEOPLASM OF UNSP SITE OF UNSPE 10/28/2019 GLYNN PERRY MD Ot Z51.81 ENCOUNTER FOR THERAPEUTIC DRUG LEVEL MON 10/28/2019 GLYNN PERRY MD Ot Z79.899 OTHER CALL CENTER DISPATCHER (CURRENT) DRUG THERAPY 10/29/2019 GLYNN PERRY MD, Ot C50.919 MALIGNANT NEOPLASM OF UNSP SITE OF UNSPE 10/29/2019 GLYNN PERRY MD Ot Z51.81 ENCOUNTER FOR THERAPEUTIC DRUG LEVEL MON 10/29/2019 GLYNN PERRY MD, Ot Z79.899 OTHER INTERMEDIATE (CURRENT) DRUG THERAPY Procedures Code [place] [address] ROUT INE VENIPUNCTURE 06/02/2012 65875 A1C (IN-HOUSE) 06/02/2012 02359 MICR O ALBUMIN-IN HOUSE 06/02/2012 98742 CMP 06/02/2012 86593 LIPI D PANEL 06/02/2012 [id number] GF R CALC (RESULT ONLY) 06/02/2012 91558 ROUT INE VENIPUNCTURE 12/03/2012 10907 A1C (IN-HOUSE) 12/03/2012 79806 CMP 12/03/2012 43833 LIPI D PANEL 12/03/2012 3930924 GF R CALC (RESULT ONLY) 12/03/[address] INUS W/O CONTRAST 12/15/2012 67756 ROUT INE VENIPUNCTURE 08/04/2013 27034 MICR O ALBUMIN-IN HOUSE 08/04/2013 56206 A1C (IN-HOUSE) 08/04/2013 6441577 GF R CALC (RESULT ONLY) 08/04/2013 97574 CMP 08/04/2013 77094 LIPI D PANEL 08/04/2013 72086 MICR OALBUMIN 08/04/2013 09877 ROUT INE VENIPUNCTURE 02/08/2014 85186 A1C (IN-HOUSE) 02/08/2014 7253802 GF R CALC (RESULT ONLY) 02/08/2014 12781 CMP 02/08/2014 04874 LIPI D PANEL 02/08/2014 Results Test Result [...] Whole blood basic metabolic panel - 11/27 0 13:54 Serum or plasma sodium measurement (moles/volume) [...] NRG STATEMENT OF ADEQUACY: NRG INTERPRETATION/RESULT: NRG GOLF COURSE EQUIPMENT OPERATOR: NRG HPV mRNA E6/E7, SUREPATH VIAL Not Detected NOT DETECTED REVIEW GOLF COURSE EQUIPMENT OPERATOR: NRG COMMENT NRG PATHOLOGY REPORT (TISSUE PAHOLOGY) - 14:17 CLINICAL INFORMATION NRG PATHOLOGIST NRG CULTURE, URINE - 10/02/19 00:00 CULTURE, URINE, ROUTINE SEE NOTE NRG Encounters ACCT No. Visit Date/Time Discharge Status Pt. Type Provider Facility Loc./Unit Complaint [id number] 02/08/2014 11:42:00 02/08/2014 23:59: 59 CLS Outpatient HAWA CORREA DO [id number] 08/04/2013 10:17:00 08/04/2013 23:59: 59 CLS Outpatient HAWA CORREA DO [id number] 06/03/2012 09:49:00 06/03/2012 23:59: 59 CLS Outpatient [id number] 06/02/2012 10:48:00 06/02/2012 23:59:5 9 CLS Outpatient HAWA CORREA DO [id number] 12/15/2012 18:29:00 Document Registration [id number] 12/03/2012 10:35:00 Document Registration [id number] 10/28/2019 10:45:00 020 11:00:00 DIS Outpatient JILLIAN CARRANZA DO [facility] PREOP PORT PLACEMENT [id number] 10/23/2019 09:53:00 23:59:59 CLS Outpatient GLYNN PERRY MD [facility] ONC [id number] 10/19/2019 08:25:00 23:59:59 CLS Outpatient GLYNN PERRY MD [facility] RAD ELNARGED LYMPH NODE [id number] 10/08/2019 11:01:00 03/12/2 020 23:59:59 CLS Outpatient ORLANDO MOSS, GLYNN lubin [facility] RAD BREAST CA [id number] 04/29/2019 10:42:00 019 23:59:59 CLS Outpatient NAMRATA LOPEZ PRODUCT REPRESENTATIVE [facility] RAD BREAST MASS LEF T [id number] 04/15/2019 08:10:00 019 23:59:59 CLS Outpatient NAMRATA LOPEZ PRODUCT REPRESENTATIVE [facility] RAD LT BREAST MASS, BLOODY DISCHARGE [id number] 09/09/2018 10:49:00 019 23:59:59 CLS Outpatient FORREST SEGAL [facility] LAB I25.10 [id number] 02/07/2018 13:42:00 018 23:59:59 CLS Outpatient FORREST SEGAL [facility] LAB CAD,DIABETES,YP ERLIPIDEMIA [id number] 09/15/2017 09:57:00 018 09:13:00 DIS Inpatient DENISE HILL MD [facility] 4TH CHEST PAIN [id number] 08/07/2017 10:20:00 018 23:59:59 CLS Outpatient FORREST SEGAL [facility] LAB I25.10 E78.4 [id number] 04/16/2017 11:33:00 017 23:59:59 CLS Outpatient JEANNETTE MOSS FACC, EMMANUEL ULLOA CC DS [facility] CARD CAD I25.10 [id number] 04/08/2017 11:11:00 017 23:59:59 CLS Outpatient DENISE HILL MD [facility] RAD R13.10 DYSPHAGIA [id number] 02/06/2017 11:18:00 017 23:59:59 CLS Outpatient FORREST SEGAL [facility] LAB I25.10 E78.4 [id number] 12/15/2016 13:26:00 017 14:35:00 DIS Emergency ALICEBRIAN PRODUCT REPRESENTATIVE [facility] ER L FOOT PAIN [id number] 11/06/2016 09:28:00 017 23:59:59 CLS Outpatient JEANNETTE MOSS FACC, EMMANUEL ULLOA CC DS [facility] LAB FATIGUE,CAD ,HLP [id number] 10/08/2016 13:31:00 017 23:59:59 CLS Outpatient FORREST SEGALP [facility] CARD CAD [id number] 10/02/2016 16:26:00 017 13:20:00 DIS Outpatient JEANNETTE MOSS FACC, EMMANUEL ULLOA CC DS [facility] CATH STEMI [id number] 12/19/2012 09:34:00 013 23:59:59 CLS Outpatient ANGI BO [facility] RAD CHRONIC SINUSITIS [id number] 10/30/2019 09:00:00 P EN Preadmit [facility] [id number] 10/27/2019 13:52:[address] Outpatient GLYNN PERRY MD [facility] CARD BREAST CANCER,ADMISSION FOR THERAPEUTIC DRUG [id number] 10/02/2019 15:00:00 10/02/2019 23:59: 59 CLS Outpatient DENISE HILL [facility] [id number] 10/02/2019 15:00:00 Document Registration [id number] 09/11/2018 13:40:00 Document Registration
[2019-10-30 08:03] VITALS: BP 113/68
--- NOTE | 2019-10-30 08:15 | NUR ---
BRIAN MEYER - RADIOLOGY SCHEDULER PHONED SHEILA HARDEN RN INFECTION CONTROL AND ANNETTE NORWOOD AND INFORMED PATIENTS SON KALEN ANAND HAD A NEGATIVE CORONAVIRUS TEST FROM [facility] PER PATIENT AND KALEN AND THAT PATIENT IS WEARING A N95 MASK. BRIAN SOSA INFORMED SON MAY COME TO PATIENTS ROOM WITH N95 MASK ON.
[2019-10-30] MEDS ORDERED: fentaNYL INJECTION 100 MCG/2 ML AMP ONE (08:17)
[2019-10-30] MEDS ORDERED: MIDAZOLAM 2 MG/2 ML (VERSED) VIAL ONE (08:17)
[2019-10-30] MEDS ORDERED: 0.9% SODIUM CHLORIDE PF INJ 20 ML VIAL ONE (08:44)
[2019-10-30] MEDS ORDERED: BUP/EPI 0.5% 1:200,000 (SENSORCAINE) 30 ML VIAL ONE (08:44)
[2019-10-30] MEDS ORDERED: HEParin (CENTRAL IV FLUSH) 500 UNIT/5 ML SYR ONE (08:44)
--- NOTE | 2019-10-30 09:10 | Progress Note-Pre Operative ---
Pre-Operative Progress Note H&P Reviewed The H&P was reviewed, patient examined and no changes noted. Time Seen by Provider: 09:04 Date H&P Reviewed: Oct 30, 2019 Time H&P Reviewed: 09:05 Pre-Operative Diagnosis: Venous Insufficiency, Breast CA JILLIAN CARRANZA DO Oct 30, 2019 09:10
[2019-10-30] MEDS ORDERED: PROPOFOL INJECTION 50 ML IV ONE (09:28)
[2019-10-30] MEDS ORDERED: ONDANSETRON 4 MG/2 ML (SDV) Z0FRAN ONE (09:34)
[2019-10-30 09:52] VITALS: BP 104/59
[2019-10-30 10:00] VITALS: BP 96/63
[2019-10-30] MEDS ORDERED: fentaNYL INJECTION 100 MCG/2 ML AMP IVP ONE (10:00)
[2019-10-30] MEDS ORDERED: ONDANSETRON 4 MG/2 ML (SDV) Z0FRAN IVP PRN (10:00)
[2019-10-30] MEDS ORDERED: MEPERIDINE (DEMEROL) INJ 50 MG/ML IVP ONE (10:00)
[2019-10-30] MEDS ORDERED: morphine INJ 10 MG/ML 1ML (SYR OR VIAL) IVP ONE (10:00)
--- NOTE | 2019-10-30 10:05 | Diagnostic Imaging Report ---
INDICATION: Port-A-Cath insertion COMPARISON: 09/15/2017 TECHNIQUE: Single intraoperative image of the right upper chest is submitted dated 10/30/2019 FINDINGS: A Port-A-Cath is identified with the hub overlying the right chest. The distal tip is difficult to visualize with certainty. IMPRESSION: Intraoperative imaging from placement of a right-sided Port-A-Cath. Recommend dedicated radiographs of the chest at the completion of the examination to evaluate the entire course of the catheter as well as to evaluate for any possible postprocedural complication. Fluoroscopy time: 5.6 seconds. See procedural note for full details. Dictated by: Dictated on workstation # [id number]
[2019-10-30 10:10] VITALS: BP 106/63
[2019-10-30 10:20] VITALS: BP_SYST 108; BP_SYST 118; BP_DIAS 65; BP_DIAS 72
--- NOTE | 2019-10-30 10:21 | Progress Note-Post Operative ---
Post-Operative Progess Note Surgeon (s)/Oil Rigger (s) Surgeon JILLIAN CARRANZA DO Oil Rigger: none Pre-Operative Diagnosis Venous Insufficiency, Breast CA Post-Operative Diagnosis Same Procedure & Operative Findings Date of Procedure 10/30/19 Procedure Performed/Findings PROCEDURE: [Right] Subclavian vein port placement. COMPLICATIONS: None. INDICATIONS: The patient is a 64 year old female [with hx of Venous Insufficiency and Breast CA]. Patient understands the risks and benefits of port placement and wished to proceed with the procedure. Consent was signed on the chart. PROCEDURE: The patient was taken to the operating suite, was prepped and draped in the sterile fashion. A surgical pause was performed. Local lidocaine was used to infiltrate at the clavicle and then in the right anterior chest wall; to create pocket where port would be placed. The right subclavian vein was accessed. Dark nonpulsatile blood was withdrawn. The wire was inserted. Fluoroscopy assured proper placement. The needle was removed and the wire was then secured. A [#11] blade scalpel was used to make a stab incision at the wire and make an incision over the [right] chest. Cautery was used to dissect down to the pectoral fascia. A pocket was created with blunt dissection. The dilator sheath was then advanced over the wire using Seldinger technique and confirmed with fluoroscopy. The dilator and wire were removed and the catheter was inserted through the sheath and the sheath was then removed. The [place] wire was removed. The catheter was then tunneled to the right chest pocket. Fluoroscopy was used to cut to length and this was then attached to the port which was then placed within the pocket. The port was then accessed without difficulty. It was then flushed with saline and then heparin. The port was then sutured down to the chest wall with 3-0 Prolene. The subcutaneous tissues were then reapproximated using 3-0 Vicryl. Three interrupted 4-0 undyed Monocryl was used to close the skin, subcuticularly. The areas were then washed and dried. Skin Affix was placed over incision and at the insertion point of the neck. The patient tolerated the procedure well without complication and was taken to recovery room in stable condition. Anesthesia Type IV sedation by BEET END SUPERVISOR Estimated Blood Loss Estimated blood loss (mL): less than 3ml Specimens/Packing Specimens Removed JILLIAN Romero DO Oct 30, 2019 10:21
--- NOTE | 2019-10-30 10:25 | Discharge Inst-Surgical ---
Discharge Inst-Surgical Depart Medication/Instructions New, Converted or Re-Newed RX: Other (Pt told to take ibuprofen or tylenol for pain) Patient Instructions Follow up Appt: Make appointment for 2 weeks. [phone] Instructions: No lifting greater than 20 pounds. No strenuous activity. May shower in 24 hours, no tub bath or soaking. Use incentive spirometer at home as directed. No Smoking Skin/Wound Care: May remove bandages in am. You need to leave the Dermabond on incision it will fall off on it's own. Symptoms to Report: Appetite Changes, Extremity Discoloration, Numbness/Tingling, Swelling Increased, Bleeding Excessive, Eyesight Changes, Pain Increased, Urine Color Change, Constipation(Persistent), Fever over 101 degree F, Pain/Pressure in chest, Urinating Difficulty, Cough Up/Vomit Blood, Heart Beat Irreg/Pounding, Pain/Pressure in jaw, Cramps in feet or legs, Lightheadedness, Pain/Pressure in shoulder, Diarrhea(Persistent), Memory Changes Suddenly, Questions/Concerns, Weight gain consecutive days, Dizziness/Fainting, Nausea/Vomiting, Shortness of Breath, Weight gain over 2 pounds If questions or concerns contact your physician Or seek help at emergency department. Activity Activity as Tolerated: Yes Activity Instructions: Avoid Stress to Incision Driving Instructions: You May Drive Diet Discharge Diet: No Restrictions Diet After 24 Hours: Clear Liquid if Nauseous If Any Problems/Questions/Issu: Contact Your Physician, Go to Emergency Room Skin/Wound Care Infection Signs and Symptoms: Increased Redness, Foul Odor of Wound, Increased Drainage, Skin Itchy or Has a Rash, Increased Swelling, Temperature Above 101 F Bathing Instructions: Shower Stitches/Nikita/Dermabond Dis: Dermabond Ice Pack: Ice On and Off Site (as needed for pain) JILLIAN CARRANZA DO Oct 30, 2019 10:25
--- NOTE | 2019-10-30 11:08 | Anesthesia-General Post-Op ---
MAC Patient Condition Mental Status/LOC: Same as Preop Cardiovascular: Satisfactory Nausea/Vomiting: Absent Respiratory: Satisfactory Pain: Controlled Complications: Absent Post Op Complications Complications None Follow Up Care/Instructions Patient Instructions None needed. Anesthesiology Discharge Order Discharge Order Patient is doing well, no complaints, stable vital signs, no apparent adverse anesthesia problems. No complications reported per nursing. JANE CONN CRNA Oct 30, 2019 11:08
[2019-10-30 11:10] VITALS: BP 123/74
== END 2019-10-30 11:10 | disposition home or self-care (01) ==
LOC: SDC 07:41
PROVIDERS: ATTEND Surgery
DX: C50.812 Malignant neoplasm of overlapping sites of left female breast (principal); I87.2 Venous insufficiency (chronic) (peripheral); F17.210 Nicotine dependence, cigarettes, uncomplicated; E11.9 Type 2 diabetes mellitus without complications; I25.10 Atherosclerotic heart disease of native coronary artery without angina pectoris; E78.00 Pure hypercholesterolemia, unspecified; I10 Essential (primary) hypertension; Z88.8 Allergy status to other drugs, medicaments and biological substances; Z79.02 Long term (current) use of antithrombotics/antiplatelets; Z79.84 Long term (current) use of oral hypoglycemic drugs; Z79.82 Long term (current) use of aspirin; Z79.899 Other long term (current) drug therapy; Z90.49 Acquired absence of other specified parts of digestive tract; Z90.12 Acquired absence of left breast and nipple; Z95.5 Presence of coronary angioplasty implant and graft
CPT/HCPCS: 82962; 87081

== ENCOUNTER 2019-12-17 09:09 | Outpatient (RCR) | payer MEDICAID ==
[2019-11-05 14:20] LABS: BASOPHILS % (AUTO) 0 % (0-10); EOSINOPHILS # (AUTO) 0.2 10^3/uL (0.0-0.3); EOSINOPHILS % (AUTO) 2 % (0-10); HEMATOCRIT 38 % (35-52); HEMOGLOBIN 12.4 G/DL (11.5-16.0); LYMPHOCYTES # (AUTO) 1.9 X 10^3 (1.0-4.0); LYMPHOCYTES % (AUTO) 24 % (12-44); MEAN CORPUSCULAR HEMOGLOBIN 30 PG (25-34); MEAN CORPUSCULAR HGB CONC 33 G/DL (32-36); MEAN CORPUSCULAR VOLUME 92 FL (80-99); MEAN PLATELET VOLUME 10.4 FL (7.4-10.4); MONOCYTES # (AUTO) 0.7 X 10^3 (0.0-1.0); MONOCYTES % (AUTO) 8 % (0-12); NEUTROPHILS # (AUTO) 5.2 X 10^3 (1.8-7.8); NEUTROPHILS % (AUTO) 65 % (42-75); PLATELET COUNT 184 10^3/uL (130-400); RED CELL DISTRIBUTION WIDTH 14.2 % (10.0-14.5)
[2019-11-05 14:28] LABS: ALBUMIN 4.2 GM/DL (3.2-4.5); POTASSIUM 4.2 MMOL/L (3.6-5.0)
[2019-11-05 14:30] LABS: CALCIUM 10.5 MG/DL (8.5-10.1)
[2019-11-05 14:33] LABS: BILIRUBIN,TOTAL 0.2 MG/DL (0.1-1.0)
[2019-11-05 14:34] LABS: CREATININE SERUM 1.12 MG/DL (0.60-1.30)
[2019-11-12 14:32] LABS: BASOPHILS % (AUTO) 0 % (0-10); EOSINOPHILS # (AUTO) 0.1 10^3/uL (0.0-0.3); EOSINOPHILS % (AUTO) 4 % (0-10); HEMATOCRIT 37 % (35-52); LYMPHOCYTES # (AUTO) 0.7 X 10^3 (1.0-4.0); LYMPHOCYTES % (AUTO) 25 % (12-44); MEAN CORPUSCULAR HEMOGLOBIN 30 PG (25-34); MEAN CORPUSCULAR HGB CONC 33 G/DL (32-36); MEAN CORPUSCULAR VOLUME 90 FL (80-99); MEAN PLATELET VOLUME 10.4 FL (7.4-10.4); MONOCYTES # (AUTO) 0.2 X 10^3 (0.0-1.0); MONOCYTES % (AUTO) 7 % (0-12); NEUTROPHILS # (AUTO) 1.8 X 10^3 (1.8-7.8); NEUTROPHILS % (AUTO) 64 % (42-75); PLATELET COUNT 145 10^3/uL (130-400); RED CELL DISTRIBUTION WIDTH 13.9 % (10.0-14.5); WHITE BLOOD COUNT 2.7 10^3/uL (4.3-11.0)
[2019-11-12 14:57] LABS: CALCIUM 9.9 MG/DL (8.5-10.1); CREATININE SERUM 1.16 MG/DL (0.60-1.30); POTASSIUM 4.1 MMOL/L (3.6-5.0)
[2019-11-19 11:31] LABS: BASOPHILS % (AUTO) 0 % (0-10); EOSINOPHILS % (AUTO) 0 % (0-10); HEMATOCRIT 37 % (35-52); HEMOGLOBIN 12.2 G/DL (11.5-16.0); LYMPHOCYTES # (AUTO) 1.3 X 10^3 (1.0-4.0); LYMPHOCYTES % (AUTO) 14 % (12-44); MEAN CORPUSCULAR HEMOGLOBIN 30 PG (25-34); MEAN CORPUSCULAR HGB CONC 33 G/DL (32-36); MEAN CORPUSCULAR VOLUME 92 FL (80-99); MEAN PLATELET VOLUME 10.4 FL (7.4-10.4); MONOCYTES # (AUTO) 0.3 X 10^3 (0.0-1.0); MONOCYTES % (AUTO) 3 % (0-12); NEUTROPHILS # (AUTO) 7.8 X 10^3 (1.8-7.8); NEUTROPHILS % (AUTO) 83 % (42-75); PLATELET COUNT 163 10^3/uL (130-400); RED CELL DISTRIBUTION WIDTH 14.6 % (10.0-14.5); WHITE BLOOD COUNT 9.5 10^3/uL (4.3-11.0)
[2019-11-19 11:51] LABS: ALBUMIN 3.9 GM/DL (3.2-4.5); BILIRUBIN,TOTAL 0.2 MG/DL (0.1-1.0); CALCIUM 9.7 MG/DL (8.5-10.1); CREATININE SERUM 1.23 MG/DL (0.60-1.30); POTASSIUM 4.5 MMOL/L (3.6-5.0); TOTAL PROTEIN 6.6 GM/DL (6.4-8.2)
[2019-11-26 14:48] LABS: BASOPHILS # (AUTO) 0.1 10^3/uL (0.0-0.1); BASOPHILS % (AUTO) 2 % (0-10); EOSINOPHILS % (AUTO) 1 % (0-10); HEMATOCRIT 35 % (35-52); HEMOGLOBIN 11.7 G/DL (11.5-16.0); LYMPHOCYTES # (AUTO) 0.6 X 10^3 (1.0-4.0); LYMPHOCYTES % (AUTO) 20 % (12-44); MEAN CORPUSCULAR HEMOGLOBIN 30 PG (25-34); MEAN CORPUSCULAR HGB CONC 34 G/DL (32-36); MEAN CORPUSCULAR VOLUME 90 FL (80-99); MEAN PLATELET VOLUME 10.1 FL (7.4-10.4); MONOCYTES % (AUTO) 1 % (0-12); NEUTROPHILS # (AUTO) 2.3 X 10^3 (1.8-7.8); NEUTROPHILS % (AUTO) 76 % (42-75); PLATELET COUNT 189 10^3/uL (130-400); RED CELL DISTRIBUTION WIDTH 14.3 % (10.0-14.5); WHITE BLOOD COUNT 3.1 10^3/uL (4.3-11.0)
[2019-11-26 15:03] LABS: CALCIUM 9.3 MG/DL (8.5-10.1); CREATININE SERUM 1.08 MG/DL (0.60-1.30); POTASSIUM 4.6 MMOL/L (3.6-5.0)
[2019-12-03 14:10] LABS: BASOPHILS % (AUTO) 2 % (0-10); EOSINOPHILS % (AUTO) 1 % (0-10); HEMATOCRIT 33 % (35-52); HEMOGLOBIN 10.9 G/DL (11.5-16.0); LYMPHOCYTES # (AUTO) 0.9 X 10^3 (1.0-4.0); LYMPHOCYTES % (AUTO) 46 % (12-44); MEAN CORPUSCULAR HEMOGLOBIN 30 PG (25-34); MEAN CORPUSCULAR HGB CONC 33 G/DL (32-36); MEAN CORPUSCULAR VOLUME 92 FL (80-99); MONOCYTES # (AUTO) 0.4 X 10^3 (0.0-1.0); MONOCYTES % (AUTO) 22 % (0-12); NEUTROPHILS # (AUTO) 0.6 X 10^3 (1.8-7.8); NEUTROPHILS % (AUTO) 30 % (42-75); PLATELET COUNT 193 10^3/uL (130-400); RED CELL DISTRIBUTION WIDTH 14.7 % (10.0-14.5)
[2019-12-03 14:35] LABS: BILIRUBIN,TOTAL 0.2 MG/DL (0.1-1.0); CALCIUM 9.5 MG/DL (8.5-10.1); CREATININE SERUM 1.1 MG/DL (0.60-1.30); POTASSIUM 4.3 MMOL/L (3.6-5.0); TOTAL PROTEIN 6.8 GM/DL (6.4-8.2)
[2019-12-10 13:52] LABS: BASOPHILS % (AUTO) 0 % (0-10); EOSINOPHILS % (AUTO) 0 % (0-10); HEMATOCRIT 34 % (35-52); HEMOGLOBIN 11.2 G/DL (11.5-16.0); LYMPHOCYTES # (AUTO) 1.2 X 10^3 (1.0-4.0); LYMPHOCYTES % (AUTO) 12 % (12-44); MEAN CORPUSCULAR HEMOGLOBIN 30 PG (25-34); MEAN CORPUSCULAR HGB CONC 33 G/DL (32-36); MEAN CORPUSCULAR VOLUME 92 FL (80-99); MEAN PLATELET VOLUME 9.6 FL (7.4-10.4); MONOCYTES # (AUTO) 0.7 X 10^3 (0.0-1.0); MONOCYTES % (AUTO) 7 % (0-12); NEUTROPHILS % (AUTO) 80 % (42-75); PLATELET COUNT 213 10^3/uL (130-400); RED CELL DISTRIBUTION WIDTH 15.4 % (10.0-14.5)
[~2019-12-17] VITALS: Ht 177.8 cm; Wt 86.6 kg
[~2019-12-17 09:09] MED LIST changes: +CYCLOPHOSPHAMIDE INJECTION 1,000 MG, CYCLOPHOSPHAMIDE INJECTION 100 MG in NS (IVPB) CAN... IV SCH; +CYCLOPHOSPHAMIDE IV SCH; +DOXORUBICIN HCL IV SCH; +FOSAPREPITANT DIMEGLUMINE 150 MG in NS (IVPB) CANCER CENTER ONLY 150 ML IV SCH; +NS IV 1000 ML (CANCER CTR) IV SCH; +NS IV SCH; +PALONOSETRON HCL 0.25 MG, DEXAMETHASONE INJECTION 10 MG in NS (IVPB) CANCER CENTER 50 ML IV SCH; +PEGFILGRASTIM 6 MG/0.6 ML ONPRO KIT SQ SCH; +[UNRECOGNIZED DRUG - OTHER] IV SCH
[2019-12-17 09:25] LABS: BASOPHILS % (AUTO) 0 % (0-10); EOSINOPHILS % (AUTO) 1 % (0-10); HEMATOCRIT 32 % (35-52); HEMOGLOBIN 10.8 G/DL (11.5-16.0); LYMPHOCYTES # (AUTO) 0.4 X 10^3 (1.0-4.0); LYMPHOCYTES % (AUTO) 12 % (12-44); MEAN CORPUSCULAR HEMOGLOBIN 31 PG (25-34); MEAN CORPUSCULAR HGB CONC 34 G/DL (32-36); MEAN CORPUSCULAR VOLUME 90 FL (80-99); MEAN PLATELET VOLUME 10.3 FL (7.4-10.4); MONOCYTES # (AUTO) 0.3 X 10^3 (0.0-1.0); MONOCYTES % (AUTO) 8 % (0-12); NEUTROPHILS # (AUTO) 2.6 X 10^3 (1.8-7.8); NEUTROPHILS % (AUTO) 80 % (42-75); PLATELET COUNT 168 10^3/uL (130-400); RED CELL DISTRIBUTION WIDTH 15.3 % (10.0-14.5); WHITE BLOOD COUNT 3.3 10^3/uL (4.3-11.0)
[2019-12-17 09:40] LABS: CALCIUM 9.7 MG/DL (8.5-10.1); CREATININE SERUM 1.13 MG/DL (0.60-1.30); POTASSIUM 4.4 MMOL/L (3.6-5.0)
== END 2019-12-23 15:31 | disposition home or self-care (01) ==
LOC: ONC 09:09
PROVIDERS: ATTEND Internal Medicine Hematology & Oncology
DX: D05.12 Intraductal carcinoma in situ of left breast (principal); D05.02 Lobular carcinoma in situ of left breast; I10 Essential (primary) hypertension; E11.9 Type 2 diabetes mellitus without complications; Z80.3 Family history of malignant neoplasm of breast; Z80.42 Family history of malignant neoplasm of prostate
CPT/HCPCS: 36591; 80048; 80053; 85025; 96367; 96375; 96377; 96411; 96413; 96417; 99213; 99214; J2505

== ENCOUNTER 2020-01-21 12:38 | Outpatient (RCR) | payer MEDICAID ==
[2019-12-24 13:16] LABS: BASOPHILS % (AUTO) 0 % (0-10); EOSINOPHILS % (AUTO) 0 % (0-10); HEMATOCRIT 32 % (35-52); HEMOGLOBIN 10.6 G/DL (11.5-16.0); LYMPHOCYTES % (AUTO) 9 % (12-44); MEAN CORPUSCULAR HEMOGLOBIN 31 PG (25-34); MEAN CORPUSCULAR HGB CONC 33 G/DL (32-36); MEAN CORPUSCULAR VOLUME 93 FL (80-99); MEAN PLATELET VOLUME 10.2 FL (7.4-10.4); MONOCYTES # (AUTO) 0.5 X 10^3 (0.0-1.0); MONOCYTES % (AUTO) 4 % (0-12); NEUTROPHILS # (AUTO) 9.2 X 10^3 (1.8-7.8); NEUTROPHILS % (AUTO) 86 % (42-75); PLATELET COUNT 134 10^3/uL (130-400); RED CELL DISTRIBUTION WIDTH 16.5 % (10.0-14.5); WHITE BLOOD COUNT 10.8 10^3/uL (4.3-11.0)
[2019-12-24 13:42] LABS: ALBUMIN 3.9 GM/DL (3.2-4.5); BILIRUBIN,TOTAL 0.2 MG/DL (0.1-1.0); CALCIUM 9.6 MG/DL (8.5-10.1); CREATININE SERUM 1.13 MG/DL (0.60-1.30); POTASSIUM 4.2 MMOL/L (3.6-5.0); TOTAL PROTEIN 6.7 GM/DL (6.4-8.2)
[2019-12-31 14:45] LABS: BASOPHILS % (AUTO) 0 % (0-10); EOSINOPHILS % (AUTO) 0 % (0-10); HEMATOCRIT 30 % (35-52); HEMOGLOBIN 10.2 G/DL (11.5-16.0); LYMPHOCYTES # (AUTO) 0.6 X 10^3 (1.0-4.0); LYMPHOCYTES % (AUTO) 27 % (12-44); MEAN CORPUSCULAR HEMOGLOBIN 31 PG (25-34); MEAN CORPUSCULAR HGB CONC 34 G/DL (32-36); MEAN CORPUSCULAR VOLUME 92 FL (80-99); MEAN PLATELET VOLUME 9.7 FL (7.4-10.4); MONOCYTES # (AUTO) 0.4 X 10^3 (0.0-1.0); MONOCYTES % (AUTO) 17 % (0-12); NEUTROPHILS # (AUTO) 1.3 X 10^3 (1.8-7.8); NEUTROPHILS % (AUTO) 56 % (42-75); PLATELET COUNT 167 10^3/uL (130-400); RED CELL DISTRIBUTION WIDTH 16.7 % (10.0-14.5); WHITE BLOOD COUNT 2.4 10^3/uL (4.3-11.0)
[2019-12-31 14:59] LABS: CALCIUM 10.1 MG/DL (8.5-10.1); CREATININE SERUM 1.09 MG/DL (0.60-1.30); POTASSIUM 4.4 MMOL/L (3.6-5.0)
[2020-01-07 13:17] LABS: BASOPHILS % (AUTO) 0 % (0-10); EOSINOPHILS % (AUTO) 0 % (0-10); HEMATOCRIT 32 % (35-52); HEMOGLOBIN 10.7 G/DL (11.5-16.0); LYMPHOCYTES # (AUTO) 0.5 X 10^3 (1.0-4.0); LYMPHOCYTES % (AUTO) 3 % (12-44); MEAN CORPUSCULAR HEMOGLOBIN 31 PG (25-34); MEAN CORPUSCULAR HGB CONC 33 G/DL (32-36); MEAN CORPUSCULAR VOLUME 93 FL (80-99); MEAN PLATELET VOLUME 10.2 FL (7.4-10.4); MONOCYTES # (AUTO) 0.1 X 10^3 (0.0-1.0); MONOCYTES % (AUTO) 1 % (0-12); NEUTROPHILS % (AUTO) 96 % (42-75); PLATELET COUNT 164 10^3/uL (130-400); RED CELL DISTRIBUTION WIDTH 17.6 % (10.0-14.5); WHITE BLOOD COUNT 15.7 10^3/uL (4.3-11.0)
[2020-01-07 13:39] LABS: ALBUMIN 4.3 GM/DL (3.2-4.5); BILIRUBIN,TOTAL 0.3 MG/DL (0.1-1.0); CALCIUM 9.9 MG/DL (8.5-10.1); CREATININE SERUM 1.28 MG/DL (0.60-1.30); POTASSIUM 4.6 MMOL/L (3.6-5.0); TOTAL PROTEIN 7.1 GM/DL (6.4-8.2)
[2020-01-14 12:51] LABS: BASOPHILS % (AUTO) 0 % (0-10); EOSINOPHILS % (AUTO) 0 % (0-10); HEMATOCRIT 29 % (35-52); HEMOGLOBIN 9.4 G/DL (11.5-16.0); LYMPHOCYTES # (AUTO) 0.3 X 10^3 (1.0-4.0); LYMPHOCYTES % (AUTO) 4 % (12-44); MEAN CORPUSCULAR HEMOGLOBIN 31 PG (25-34); MEAN CORPUSCULAR HGB CONC 33 G/DL (32-36); MEAN CORPUSCULAR VOLUME 93 FL (80-99); MEAN PLATELET VOLUME 10.1 FL (7.4-10.4); MONOCYTES % (AUTO) 1 % (0-12); NEUTROPHILS # (AUTO) 7.2 X 10^3 (1.8-7.8); NEUTROPHILS % (AUTO) 96 % (42-75); PLATELET COUNT 254 10^3/uL (130-400); RED CELL DISTRIBUTION WIDTH 17.7 % (10.0-14.5); WHITE BLOOD COUNT 7.5 10^3/uL (4.3-11.0)
[2020-01-14 13:13] LABS: CALCIUM 9.2 MG/DL (8.5-10.1); CREATININE SERUM 1.16 MG/DL (0.60-1.30); POTASSIUM 4.7 MMOL/L (3.6-5.0)
[~2020-01-21 12:38] MED LIST changes: +CYCLOPHOSPHAMIDE INJECTION 1,000 MG, CYCLOPHOSPHAMIDE INJECTION 200 MG in NS (IVPB) CAN... IV SCH; -CYCLOPHOSPHAMIDE IV SCH; -DOXORUBICIN HCL IV SCH; +FAMOTIDINE 20MG/2ML IV (CANCER CTR) IV SCH; +FOSAPREPITANT (CANCER CENTER) 150 MG in NS (IVPB) CANCER CENTER ONLY 150 ML IV SCH; -FOSAPREPITANT DIMEGLUMINE 150 MG in NS (IVPB) CANCER CENTER ONLY 150 ML IV SCH; +MULT-567 PO; -MULT1TAB69 PO; -NS IV SCH; -[UNRECOGNIZED DRUG - OTHER] IV SCH; +diphenhydrAMINE 25 MG TAB (BENADRYL) CANCER CENTER PO SCH; +diphenhydrAMINE 50 MG/ML INJ (CANCER CENTER) IV PRN; +diphenhydrAMINE 50 MG/ML INJ (CANCER CENTER) ONE
[2020-01-21 13:02] LABS: BASOPHILS % (AUTO) 0 % (0-10); EOSINOPHILS % (AUTO) 0 % (0-10); HEMATOCRIT 30 % (35-52); HEMOGLOBIN 10.1 G/DL (11.5-16.0); LYMPHOCYTES # (AUTO) 0.4 X 10^3 (1.0-4.0); LYMPHOCYTES % (AUTO) 7 % (12-44); MEAN CORPUSCULAR HEMOGLOBIN 32 PG (25-34); MEAN CORPUSCULAR HGB CONC 34 G/DL (32-36); MEAN CORPUSCULAR VOLUME 95 FL (80-99); MONOCYTES % (AUTO) 1 % (0-12); NEUTROPHILS # (AUTO) 5.1 X 10^3 (1.8-7.8); NEUTROPHILS % (AUTO) 92 % (42-75); PLATELET COUNT 229 10^3/uL (130-400); RED CELL DISTRIBUTION WIDTH 18.9 % (10.0-14.5); WHITE BLOOD COUNT 5.6 10^3/uL (4.3-11.0)
[2020-01-21 13:23] LABS: CALCIUM 9.8 MG/DL (8.5-10.1); CREATININE SERUM 1.32 MG/DL (0.60-1.30); POTASSIUM 4.6 MMOL/L (3.6-5.0)
[2020-01-28 14:20] LABS: BASOPHILS % (AUTO) 1 % (0-10); EOSINOPHILS # (AUTO) 0.1 10^3/uL (0.0-0.3); EOSINOPHILS % (AUTO) 1 % (0-10); HEMATOCRIT 30 % (35-52); HEMOGLOBIN 9.8 G/DL (11.5-16.0); LYMPHOCYTES # (AUTO) 0.6 X 10^3 (1.0-4.0); LYMPHOCYTES % (AUTO) 18 % (12-44); MEAN CORPUSCULAR HEMOGLOBIN 33 PG (25-34); MEAN CORPUSCULAR HGB CONC 33 G/DL (32-36); MEAN CORPUSCULAR VOLUME 98 FL (80-99); MEAN PLATELET VOLUME 9.9 FL (7.4-10.4); MONOCYTES # (AUTO) 0.3 X 10^3 (0.0-1.0); MONOCYTES % (AUTO) 7 % (0-12); NEUTROPHILS # (AUTO) 2.6 X 10^3 (1.8-7.8); NEUTROPHILS % (AUTO) 73 % (42-75); PLATELET COUNT 190 10^3/uL (130-400); RED CELL DISTRIBUTION WIDTH 19.7 % (10.0-14.5); WHITE BLOOD COUNT 3.5 10^3/uL (4.3-11.0)
[2020-01-28 14:37] LABS: ALBUMIN 4.1 GM/DL (3.2-4.5); BILIRUBIN,TOTAL 0.3 MG/DL (0.1-1.0); CALCIUM 10.1 MG/DL (8.5-10.1); CREATININE SERUM 1.19 MG/DL (0.60-1.30); POTASSIUM 4.3 MMOL/L (3.6-5.0); TOTAL PROTEIN 6.5 GM/DL (6.4-8.2)
== END 2020-01-28 13:46 | disposition home or self-care (01) ==
LOC: ONC 12:38
PROVIDERS: ATTEND Internal Medicine Hematology & Oncology
DX: Z51.11 Encounter for antineoplastic chemotherapy (principal); D05.12 Intraductal carcinoma in situ of left breast; D05.02 Lobular carcinoma in situ of left breast; I10 Essential (primary) hypertension; E11.9 Type 2 diabetes mellitus without complications; Z80.3 Family history of malignant neoplasm of breast; Z80.42 Family history of malignant neoplasm of prostate
CPT/HCPCS: 36591; 80048; 80053; 83735; 85025; 96367; 96375; 96377; 96413; 96417; 99213; J2505

== ENCOUNTER 2020-04-11 13:39 | Outpatient (RCR) | payer MEDICARE, MEDICAID ==
[2020-02-04 13:03] LABS: BASOPHILS % (AUTO) 0 % (0-10); EOSINOPHILS # (AUTO) 0.1 10^3/uL (0.0-0.3); EOSINOPHILS % (AUTO) 2 % (0-10); HEMATOCRIT 28 % (35-52); HEMOGLOBIN 9.1 G/DL (11.5-16.0); LYMPHOCYTES # (AUTO) 0.6 X 10^3 (1.0-4.0); LYMPHOCYTES % (AUTO) 19 % (12-44); MEAN CORPUSCULAR HEMOGLOBIN 32 PG (25-34); MEAN CORPUSCULAR HGB CONC 32 G/DL (32-36); MEAN CORPUSCULAR VOLUME 100 FL (80-99); MEAN PLATELET VOLUME 9.9 FL (7.4-10.4); MONOCYTES # (AUTO) 0.1 X 10^3 (0.0-1.0); MONOCYTES % (AUTO) 5 % (0-12); NEUTROPHILS # (AUTO) 2.2 X 10^3 (1.8-7.8); NEUTROPHILS % (AUTO) 74 % (42-75); PLATELET COUNT 175 10^3/uL (130-400)
[2020-02-04 13:24] LABS: CALCIUM 9.5 MG/DL (8.5-10.1); CREATININE SERUM 1.1 MG/DL (0.60-1.30); POTASSIUM 4.1 MMOL/L (3.6-5.0)
[2020-02-18 13:35] LABS: BASOPHILS % (AUTO) 1 % (0-10); EOSINOPHILS # (AUTO) 0.1 10^3/uL (0.0-0.3); EOSINOPHILS % (AUTO) 1 % (0-10); HEMATOCRIT 32 % (35-52); HEMOGLOBIN 10.4 G/DL (11.5-16.0); LYMPHOCYTES % (AUTO) 19 % (12-44); MEAN CORPUSCULAR HEMOGLOBIN 33 PG (25-34); MEAN CORPUSCULAR HGB CONC 33 G/DL (32-36); MEAN CORPUSCULAR VOLUME 101 FL (80-99); MEAN PLATELET VOLUME 9.7 FL (7.4-10.4); MONOCYTES # (AUTO) 0.6 X 10^3 (0.0-1.0); MONOCYTES % (AUTO) 11 % (0-12); NEUTROPHILS # (AUTO) 3.7 X 10^3 (1.8-7.8); NEUTROPHILS % (AUTO) 68 % (42-75); PLATELET COUNT 208 10^3/uL (130-400); WHITE BLOOD COUNT 5.4 10^3/uL (4.3-11.0)
[2020-02-18 13:53] LABS: ALBUMIN 4.1 GM/DL (3.2-4.5); BILIRUBIN,TOTAL 0.3 MG/DL (0.1-1.0); CALCIUM 9.9 MG/DL (8.5-10.1); CREATININE SERUM 1.11 MG/DL (0.60-1.30); POTASSIUM 4.2 MMOL/L (3.6-5.0); TOTAL PROTEIN 6.8 GM/DL (6.4-8.2)
[2020-02-25 13:34] LABS: BASOPHILS % (AUTO) 0 % (0-10); EOSINOPHILS # (AUTO) 0.1 10^3/uL (0.0-0.3); EOSINOPHILS % (AUTO) 1 % (0-10); HEMATOCRIT 30 % (35-52); HEMOGLOBIN 9.8 G/DL (11.5-16.0); LYMPHOCYTES # (AUTO) 0.8 X 10^3 (1.0-4.0); LYMPHOCYTES % (AUTO) 16 % (12-44); MEAN CORPUSCULAR HEMOGLOBIN 33 PG (25-34); MEAN CORPUSCULAR HGB CONC 33 G/DL (32-36); MEAN CORPUSCULAR VOLUME 101 FL (80-99); MEAN PLATELET VOLUME 10.5 FL (7.4-10.4); MONOCYTES # (AUTO) 0.2 X 10^3 (0.0-1.0); MONOCYTES % (AUTO) 4 % (0-12); NEUTROPHILS # (AUTO) 3.7 X 10^3 (1.8-7.8); NEUTROPHILS % (AUTO) 78 % (42-75); PLATELET COUNT 204 10^3/uL (130-400); WHITE BLOOD COUNT 4.8 10^3/uL (4.3-11.0)
[2020-02-25 13:54] LABS: CALCIUM 9.2 MG/DL (8.5-10.1); CREATININE SERUM 1.12 MG/DL (0.60-1.30); POTASSIUM 4.1 MMOL/L (3.6-5.0)
[2020-03-03 13:09] LABS: BASOPHILS % (AUTO) 1 % (0-10); EOSINOPHILS % (AUTO) 2 % (0-10); HEMATOCRIT 29 % (35-52); HEMOGLOBIN 9.5 G/DL (11.5-16.0); LYMPHOCYTES # (AUTO) 0.8 X 10^3 (1.0-4.0); LYMPHOCYTES % (AUTO) 28 % (12-44); MEAN CORPUSCULAR HEMOGLOBIN 34 PG (25-34); MEAN CORPUSCULAR HGB CONC 33 G/DL (32-36); MEAN CORPUSCULAR VOLUME 103 FL (80-99); MEAN PLATELET VOLUME 10.3 FL (7.4-10.4); MONOCYTES # (AUTO) 0.1 X 10^3 (0.0-1.0); MONOCYTES % (AUTO) 4 % (0-12); NEUTROPHILS # (AUTO) 1.8 X 10^3 (1.8-7.8); NEUTROPHILS % (AUTO) 65 % (42-75); PLATELET COUNT 184 10^3/uL (130-400); WHITE BLOOD COUNT 2.7 10^3/uL (4.3-11.0)
[2020-03-03 13:28] LABS: CALCIUM 9.8 MG/DL (8.5-10.1); CREATININE SERUM 1.11 MG/DL (0.60-1.30); POTASSIUM 4.4 MMOL/L (3.6-5.0)
[2020-03-11 10:34] LABS: BASOPHILS % (AUTO) 1 % (0-10); EOSINOPHILS % (AUTO) 1 % (0-10); HEMATOCRIT 30 % (35-52); HEMOGLOBIN 9.7 G/DL (11.5-16.0); LYMPHOCYTES # (AUTO) 0.8 X 10^3 (1.0-4.0); LYMPHOCYTES % (AUTO) 22 % (12-44); MEAN CORPUSCULAR HEMOGLOBIN 34 PG (25-34); MEAN CORPUSCULAR HGB CONC 33 G/DL (32-36); MEAN CORPUSCULAR VOLUME 104 FL (80-99); MEAN PLATELET VOLUME 10.5 FL (7.4-10.4); MONOCYTES # (AUTO) 0.2 X 10^3 (0.0-1.0); MONOCYTES % (AUTO) 7 % (0-12); NEUTROPHILS # (AUTO) 2.5 X 10^3 (1.8-7.8); NEUTROPHILS % (AUTO) 70 % (42-75); PLATELET COUNT 231 10^3/uL (130-400); WHITE BLOOD COUNT 3.6 10^3/uL (4.3-11.0)
[2020-03-11 10:54] LABS: BILIRUBIN,TOTAL 0.3 MG/DL (0.1-1.0); CALCIUM 10.1 MG/DL (8.5-10.1); CREATININE SERUM 1.05 MG/DL (0.60-1.30); POTASSIUM 4.2 MMOL/L (3.6-5.0); TOTAL PROTEIN 6.3 GM/DL (6.4-8.2)
[2020-03-17 14:09] LABS: BASOPHILS % (AUTO) 1 % (0-10); EOSINOPHILS % (AUTO) 1 % (0-10); HEMATOCRIT 30 % (35-52); HEMOGLOBIN 9.8 G/DL (11.5-16.0); LYMPHOCYTES # (AUTO) 0.8 X 10^3 (1.0-4.0); LYMPHOCYTES % (AUTO) 25 % (12-44); MEAN CORPUSCULAR HEMOGLOBIN 33 PG (25-34); MEAN CORPUSCULAR HGB CONC 33 G/DL (32-36); MEAN CORPUSCULAR VOLUME 103 FL (80-99); MEAN PLATELET VOLUME 10.6 FL (7.4-10.4); MONOCYTES # (AUTO) 0.2 X 10^3 (0.0-1.0); MONOCYTES % (AUTO) 5 % (0-12); NEUTROPHILS # (AUTO) 2.3 X 10^3 (1.8-7.8); NEUTROPHILS % (AUTO) 69 % (42-75); PLATELET COUNT 212 10^3/uL (130-400); WHITE BLOOD COUNT 3.4 10^3/uL (4.3-11.0)
[2020-03-17 15:00] LABS: CALCIUM 9.4 MG/DL (8.5-10.1); CREATININE SERUM 0.98 MG/DL (0.60-1.30)
[~2020-04-11 13:39] MED LIST changes: +ASPI-1238 PO; -ASPI-983 PO; -CYCLOPHOSPHAMIDE INJECTION 1,000 MG, CYCLOPHOSPHAMIDE INJECTION 100 MG in NS (IVPB) CAN... IV SCH; -CYCLOPHOSPHAMIDE INJECTION 1,000 MG, CYCLOPHOSPHAMIDE INJECTION 200 MG in NS (IVPB) CAN... IV SCH; +FAMOTIDINE 20MG/2ML IV (CANCER CTR) ONE; -FOSAPREPITANT (CANCER CENTER) 150 MG in NS (IVPB) CANCER CENTER ONLY 150 ML IV SCH; +NS IV 1000 ML (CANCER CTR) 1,000 ML ONE; -PALONOSETRON HCL 0.25 MG, DEXAMETHASONE INJECTION 10 MG in NS (IVPB) CANCER CENTER 50 ML IV SCH; -PEGFILGRASTIM 6 MG/0.6 ML ONPRO KIT SQ SCH; +diphenhydrAMINE 25 MG TAB (BENADRYL) CANCER CENTER PO ONE; -diphenhydrAMINE 50 MG/ML INJ (CANCER CENTER) IV PRN; -diphenhydrAMINE 50 MG/ML INJ (CANCER CENTER) ONE
[2020-04-11 14:06] LABS: BASOPHILS % (AUTO) 0 % (0-10); EOSINOPHILS # (AUTO) 0.2 10^3/uL (0.0-0.3); EOSINOPHILS % (AUTO) 2 % (0-10); HEMATOCRIT 36 % (35-52); HEMOGLOBIN 11.6 G/DL (11.5-16.0); LYMPHOCYTES # (AUTO) 1.4 X 10^3 (1.0-4.0); LYMPHOCYTES % (AUTO) 19 % (12-44); MEAN CORPUSCULAR HEMOGLOBIN 33 PG (25-34); MEAN CORPUSCULAR HGB CONC 33 G/DL (32-36); MEAN CORPUSCULAR VOLUME 101 FL (80-99); MEAN PLATELET VOLUME 10.8 FL (7.4-10.4); MONOCYTES # (AUTO) 0.6 X 10^3 (0.0-1.0); MONOCYTES % (AUTO) 8 % (0-12); NEUTROPHILS # (AUTO) 5.3 X 10^3 (1.8-7.8); NEUTROPHILS % (AUTO) 71 % (42-75); PLATELET COUNT 193 10^3/uL (130-400); WHITE BLOOD COUNT 7.5 10^3/uL (4.3-11.0)
[2020-04-11 14:28] LABS: ALBUMIN 4.3 GM/DL (3.2-4.5); BILIRUBIN,TOTAL 0.3 MG/DL (0.1-1.0); CALCIUM 10.3 MG/DL (8.5-10.1); CREATININE SERUM 1.08 MG/DL (0.60-1.30); POTASSIUM 4.1 MMOL/L (3.6-5.0); TOTAL PROTEIN 7.1 GM/DL (6.4-8.2)
== END 2020-04-27 | disposition home or self-care (01) ==
LOC: ONC 13:39
PROVIDERS: ATTEND Internal Medicine Hematology & Oncology
DX: Z51.11 Encounter for antineoplastic chemotherapy (principal); D05.12 Intraductal carcinoma in situ of left breast; D05.02 Lobular carcinoma in situ of left breast; I10 Essential (primary) hypertension; E11.9 Type 2 diabetes mellitus without complications; E78.5 Hyperlipidemia, unspecified; I25.10 Atherosclerotic heart disease of native coronary artery without angina pectoris; E78.00 Pure hypercholesterolemia, unspecified; D72.819 Decreased white blood cell count, unspecified; D64.9 Anemia, unspecified; Z80.3 Family history of malignant neoplasm of breast; Z80.42 Family history of malignant neoplasm of prostate
CPT/HCPCS: 96375; 96413; G0463; 36591; 80048; 80053; 82728; 83540; 85025

== ENCOUNTER → 2020-04-12 | Outpatient (CLI) | payer MEDICARE, MEDICAID ==
[~2020-04-12] VITALS: Ht 178 cm; Wt 85.0 kg
[~2020-04-12] MED LIST changes: +CATHETER FLUSH 10 ML SYR IV PRN; -FAMOTIDINE 20MG/2ML IV (CANCER CTR) IV SCH; -FAMOTIDINE 20MG/2ML IV (CANCER CTR) ONE; -NS IV 1000 ML (CANCER CTR) 1,000 ML ONE; -NS IV 1000 ML (CANCER CTR) IV SCH; +REGADENOSON 0.4 MG/5 ML SYR (LEXISCAN) IV ONE; -diphenhydrAMINE 25 MG TAB (BENADRYL) CANCER CENTER PO ONE; -diphenhydrAMINE 25 MG TAB (BENADRYL) CANCER CENTER PO SCH
--- NOTE | 2020-04-12 13:53 | STRESS TEST ---
DATE OF SERVICE: 04/12/2020 RESTING AND POST REGADENOSON TECHNETIUM-99M TETROFOSMIN SPECT CT IMAGING ORDERING PHYSICIAN: Dr. Mathew. PRIMARY PHYSICIAN: Dr. Smith. CLINICAL DIAGNOSES: Coronary artery disease, hypertension, hyperlipidemia. Baseline images were carried out after injection of 10.95 mCi of technetium-99m Tetrofosmin. This was followed by 0.4 mg regadenoson and 29.2 mCi of technetium-99m Tetrofosmin for stress imaging. The electrocardiogram showed sinus rhythm at baseline. The electrocardiogram did not change significantly. The patient tolerated the procedure well. Review of images at rest and following stress indicates diminished count uptake in the diaphragmatic wall of the left ventricle, both at rest and following regadenoson infusion. This appears to be diaphragmatic attenuation. Gated images show normal regional wall motion, including the diaphragmatic wall of the left ventricle. There does not appear to be evidence of ischemia. Left ventricular ejection fraction is calculated to be 53%. Left ventricular end diastolic volume is 87 mL. TID is absent (1.05). CONCLUSIONS: 1. No evidence of any significant myocardial ischemia or infarction on this study. 2. Normal regional wall motion. 3. Normal global left ventricular systolic function with a calculated ejection fraction of 53%. Job ID: [id number] DocumentID: [id number] Dictated Date: 04/12/2020 13:35:50 Chain Sales Consultant Date: 04/12/2020 13:52:37 Dictated By: EMMANUEL MATHEW MD, MA, FACP, FACC,
== END ==
LOC: CARD 08:00
PROVIDERS: ATTEND Internal Medicine Cardiovascular Disease
DX: I25.10 Atherosclerotic heart disease of native coronary artery without angina pectoris (principal); I10 Essential (primary) hypertension; E11.9 Type 2 diabetes mellitus without complications; E78.5 Hyperlipidemia, unspecified; C50.812 Malignant neoplasm of overlapping sites of left female breast; Z72.0 Tobacco use
CPT/HCPCS: 78452; 93017; A9502

== ENCOUNTER 2020-05-09 13:43 | Outpatient (RCR) | payer MEDICARE, MEDICAID ==
[~2020-05-09 13:43] MED LIST changes: -CATHETER FLUSH 10 ML SYR IV PRN; -REGADENOSON 0.4 MG/5 ML SYR (LEXISCAN) IV ONE
[2020-05-09 14:11] LABS: BASOPHILS % (AUTO) 0 % (0-10); EOSINOPHILS # (AUTO) 0.1 10^3/uL (0.0-0.3); EOSINOPHILS % (AUTO) 2 % (0-10); HEMATOCRIT 37 % (35-52); HEMOGLOBIN 11.6 g/dL (11.5-16.0); LYMPHOCYTES # (AUTO) 1.4 10^3/uL (1.0-4.0); LYMPHOCYTES % (AUTO) 19 % (12-44); MEAN CORPUSCULAR HEMOGLOBIN 31 pg (25-34); MEAN CORPUSCULAR HGB CONC 32 g/dL (32-36); MEAN CORPUSCULAR VOLUME 98 fL (80-99); MEAN PLATELET VOLUME 10.8 fL (9.0-12.2); MONOCYTES # (AUTO) 0.4 10^3/uL (0.0-1.0); MONOCYTES % (AUTO) 6 % (0-12); NEUTROPHILS # (AUTO) 5.3 10^3/uL (1.8-7.8); NEUTROPHILS % (AUTO) 73 % (42-75); PLATELET COUNT 165 10^3/uL (130-400); WHITE BLOOD COUNT 7.3 10^3/uL (4.3-11.0)
[2020-05-09 14:33] LABS: ALBUMIN 3.9 GM/DL (3.2-4.5); BILIRUBIN,TOTAL 0.2 MG/DL (0.1-1.0); CALCIUM 9.5 MG/DL (8.5-10.1); CREATININE SERUM 1.09 MG/DL (0.60-1.30); POTASSIUM 4.2 MMOL/L (3.6-5.0); TOTAL PROTEIN 6.6 GM/DL (6.4-8.2)
== END 2020-08-07 | disposition home or self-care (01) ==
LOC: ONC 13:43
PROVIDERS: ATTEND Internal Medicine Hematology & Oncology
DX: C50.812 Malignant neoplasm of overlapping sites of left female breast (principal); I11.9 Hypertensive heart disease without heart failure; E11.9 Type 2 diabetes mellitus without complications; I25.10 Atherosclerotic heart disease of native coronary artery without angina pectoris; E78.00 Pure hypercholesterolemia, unspecified; D72.819 Decreased white blood cell count, unspecified; D64.9 Anemia, unspecified; Z80.42 Family history of malignant neoplasm of prostate; Z80.3 Family history of malignant neoplasm of breast; Z90.12 Acquired absence of left breast and nipple; Z98.890 Other specified postprocedural states; Z90.49 Acquired absence of other specified parts of digestive tract
CPT/HCPCS: 80053; 85025; G0463; 36591

== ENCOUNTER → 2020-05-16 | Outpatient (CLI) | payer MEDICARE, MEDICAID ==
--- NOTE | 2020-05-16 20:50 | Diagnostic Imaging Report ---
EXAM: Unilateral right screening mammogram COMPARISON: This study was compared to the prior exam of 04/15/2019. By history, the patient has had a mastectomy on the left in 2019. There are no current complaints. FINDINGS: The fibroglandular tissue in the right breast is heterogeneously dense. This does limit the sensitivity of this exam. In the midportion of the breast, in the 12-1 o'clock position, there is a linear group of calcifications. These were present on the prior exam and these could be vascular in nature. However, they do seem somewhat more conspicuous than on the prior study. I would recommend that a compression/magnification view of these calcifications be obtained for further evaluation. The overall appearance of the right breast has not changed significantly otherwise. There is no primary or secondary sign of malignancy noted. There are a few small lymph nodes in the right axilla. There is also now a Port-A-Cath in place on the right. IMPRESSION: Additional mammographic views of the right breast are recommended for further study. ACR BI-RADS Category 0: Incomplete. (Needs additional imaging evaluation). Result letter will be mailed to the patient. Note: At least 10% of breast cancer is not imaged by mammography. Dictated by: Dictated on workstation # [id number]
== END ==
LOC: RAD 11:30
PROVIDERS: ATTEND Internal Medicine Hematology & Oncology
DX: Z12.31 Encounter for screening mammogram for malignant neoplasm of breast (principal); C50.812 Malignant neoplasm of overlapping sites of left female breast; Z90.12 Acquired absence of left breast and nipple
CPT/HCPCS: 77063

== ENCOUNTER → 2020-05-20 | Outpatient (CLI) | payer MEDICARE, MEDICAID ==
--- NOTE | 2020-05-20 16:14 | Diagnostic Imaging Report ---
INDICATION: Right breast calcifications. Patient presents for additional views. CORRELATION is made with recent screening study from 05/16/2020 as well as prior mammograms from 04/15/2019. Unilateral right 2-D and 3-D diagnostic mammography was performed including magnification CC and ML views as well as conventional 90 degree lateral views. Additional views show linear calcifications in the slightly inner right breast. These appear to be vascular. No suspicious microcalcifications are seen. IMPRESSION: BI-RADS 2 Vascular calcification right breast. No suspicious microcalcifications are identified. Patient may return to routine annual screening mammography. ACR BI-RADS Category 2: Benign findings. Result letter will be mailed to the patient. Note: At least 10% of breast cancer is not imaged by mammography. Dictated by: Dictated on workstation # [id number]
== END ==
LOC: RAD 13:45
PROVIDERS: ATTEND Internal Medicine Hematology & Oncology
DX: R92.1 Mammographic calcification found on diagnostic imaging of breast (principal)
CPT/HCPCS: 77065; G0279

== ENCOUNTER 2020-09-01 14:12 | Outpatient (RCR) | payer MEDICARE, MEDICAID ==
[~2020-09-01 14:12] MED LIST changes: -LISI-556 PO; +LISI-729 PO
[2020-09-01 14:37] LABS: BASOPHILS % (AUTO) 0 % (0-10); EOSINOPHILS # (AUTO) 0.1 10^3/uL (0.0-0.3); EOSINOPHILS % (AUTO) 2 % (0-10); HEMATOCRIT 37 % (35-52); LYMPHOCYTES # (AUTO) 1.6 10^3/uL (1.0-4.0); LYMPHOCYTES % (AUTO) 23 % (12-44); MEAN CORPUSCULAR HEMOGLOBIN 30 pg (25-34); MEAN CORPUSCULAR HGB CONC 33 g/dL (32-36); MEAN CORPUSCULAR VOLUME 91 fL (80-99); MONOCYTES # (AUTO) 0.5 10^3/uL (0.0-1.0); MONOCYTES % (AUTO) 7 % (0-12); NEUTROPHILS # (AUTO) 4.7 10^3/uL (1.8-7.8); NEUTROPHILS % (AUTO) 67 % (42-75); PLATELET COUNT 171 10^3/uL (130-400)
[2020-09-01 15:01] LABS: ALBUMIN 3.9 GM/DL (3.2-4.5); BILIRUBIN,TOTAL 0.2 MG/DL (0.1-1.0); CALCIUM 9.7 MG/DL (8.5-10.1); CREATININE SERUM 1.22 MG/DL (0.60-1.30); POTASSIUM 4.2 MMOL/L (3.6-5.0); TOTAL PROTEIN 6.5 GM/DL (6.4-8.2)
== END 2020-11-30 | disposition home or self-care (01) ==
LOC: ONC 14:12
PROVIDERS: ATTEND Internal Medicine Hematology & Oncology
DX: C50.812 Malignant neoplasm of overlapping sites of left female breast (principal); I11.9 Hypertensive heart disease without heart failure; E11.9 Type 2 diabetes mellitus without complications; I25.10 Atherosclerotic heart disease of native coronary artery without angina pectoris; E78.00 Pure hypercholesterolemia, unspecified; D72.819 Decreased white blood cell count, unspecified; D64.9 Anemia, unspecified; Z80.42 Family history of malignant neoplasm of prostate; Z80.3 Family history of malignant neoplasm of breast; Z90.12 Acquired absence of left breast and nipple; Z98.890 Other specified postprocedural states; Z90.49 Acquired absence of other specified parts of digestive tract
CPT/HCPCS: 80053; 85025; G0463; 36591

== ENCOUNTER → 2020-09-01 | Outpatient (CLI) | payer MEDICARE, MEDICAID ==
[2020-09-01 14:59] LABS: CHOLESTEROL 142 MG/DL (< 200); HDL CHOLESTEROL 48 MG/DL (40-60); TRIGLYCERIDES 210 MG/DL (<150); VLDL CHOLESTEROL 42 MG/DL (5-40)
== END ==
LOC: ONC 14:27
PROVIDERS: ATTEND Family Medicine
DX: C50.912 Malignant neoplasm of unspecified site of left female breast (principal)
CPT/HCPCS: 36415; 80061

== ENCOUNTER → 2021-04-27 | Outpatient (CLI) | payer MEDICARE, MEDICAID | LOC: CARD 11:14 | PROVIDERS: ATTEND Nurse Practitioner Family | DX: I25.10 Atherosclerotic heart disease of native coronary artery without angina pectoris (principal) | CPT/HCPCS: 93306 ==

== ENCOUNTER → 2021-04-28 | Outpatient (CLI) | payer MEDICARE, MEDICAID ==
[~2021-04-28] MED LIST changes: +CATHETER FLUSH 10 ML SYR IV PRN; +REGADENOSON 0.4 MG/5 ML SYR (LEXISCAN) IV ONE
[2021-04-28 09:25] VITALS: BP 138/73
--- NOTE | 2021-05-02 17:22 | STRESS TEST ---
DATE OF SERVICE: 04/28/2021 RESTING AND POST REGADENOSON TECHNETIUM-99M TETROFOSMIN SPECT CT IMAGING ORDERING PHYSICIAN: Pauline Garcia APRN PRIMARY PHYSICIAN: Dr. Smith. CLINICAL DIAGNOSES: Coronary artery disease. Baseline images were carried out after injection of 10.49 mCi of technetium-99m Tetrofosmin. This was followed by 0.4 mg regadenoson and 28.8 mCi of technetium-99m Tetrofosmin for stress imaging. The electrocardiogram showed sinus rhythm at baseline. It did not change significantly with the regadenoson infusion. The patient tolerated the procedure well. Review of images at rest and following stress indicates a predominantly fixed basal inferior perfusion defect. Gated images show well preserved global left ventricular systolic function. There appears to be a basal inferior localized hypokinesis. Left ventricular ejection fraction is calculated to be 46%. Left ventricular end diastolic volume is 81 mL. TID is absent (0.84). CONCLUSIONS: 1. This study is suggestive of a basal inferior infarct with minimal elin-infarct ischemia. 2. Localized basal inferior hypokinesis. 3. Left ventricular ejection fraction is calculated to be 46%. Job ID: [id number] DocumentID: [id number] Dictated Date: 05/02/2021 15:02:53 City Dispatcher Date: 05/02/2021 17:20:11 Dictated By: EMMANUEL MACHADO MD, MA, FACP, FACC,
== END ==
LOC: CARD 08:00
PROVIDERS: ATTEND Nurse Practitioner Family
DX: I25.10 Atherosclerotic heart disease of native coronary artery without angina pectoris (principal)
CPT/HCPCS: 78452; 93017; A9502

== ENCOUNTER → 2021-05-22 | Outpatient (CLI) | payer MEDICARE, MEDICAID ==
[~2021-05-22] MED LIST changes: -CATHETER FLUSH 10 ML SYR IV PRN; -REGADENOSON 0.4 MG/5 ML SYR (LEXISCAN) IV ONE
--- NOTE | 2021-05-22 14:20 | Diagnostic Imaging Report ---
INDICATION: Right breast calcifications. Unilateral right 2-D and 3-D diagnostic mammography was performed with CAD. Correlation is made with prior mammogram from 05/20/2020, 05/16/2020 as well as 04/15/2019. Right breast remains heterogeneously dense, limiting the sensitivity of mammography. Previously noted calcifications appear benign, likely vascular. There are benign parenchymal calcifications as well. No mass is detected. No malignant-appearing microcalcifications are seen. [id number] hub is located in the right axilla. IMPRESSION: No mammographic features suspicious for malignancy are identified. BI-RADS Category 2 ACR BI-RADS Category 2: Benign findings. Result letter will be mailed to the patient. Note: At least 10% of breast cancer is not imaged by mammography. Dictated by: Dictated on workstation # [id number]
== END ==
LOC: RAD 12:21
PROVIDERS: ATTEND Internal Medicine Hematology & Oncology
DX: C50.819 Malignant neoplasm of overlapping sites of unspecified female breast (principal)
CPT/HCPCS: 77065; G0279

== ENCOUNTER 2021-05-25 13:29 | Outpatient (RCR) | payer MEDICARE, MEDICAID ==
[2021-03-02 14:07] LABS: BASOPHILS % (AUTO) 0 % (0-10); EOSINOPHILS # (AUTO) 0.1 10^3/uL (0.0-0.3); EOSINOPHILS % (AUTO) 2 % (0-10); HEMATOCRIT 36 % (35-52); HEMOGLOBIN 11.9 g/dL (11.5-16.0); LYMPHOCYTES # (AUTO) 1.7 10^3/uL (1.0-4.0); LYMPHOCYTES % (AUTO) 25 % (12-44); MEAN CORPUSCULAR HEMOGLOBIN 31 pg (25-34); MEAN CORPUSCULAR HGB CONC 33 g/dL (32-36); MEAN CORPUSCULAR VOLUME 93 fL (80-99); MEAN PLATELET VOLUME 10.9 fL (9.0-12.2); MONOCYTES # (AUTO) 0.3 10^3/uL (0.0-1.0); MONOCYTES % (AUTO) 5 % (0-12); NEUTROPHILS # (AUTO) 4.6 10^3/uL (1.8-7.8); NEUTROPHILS % (AUTO) 68 % (42-75); PLATELET COUNT 147 10^3/uL (130-400); WHITE BLOOD COUNT 6.8 10^3/uL (4.3-11.0)
[2021-03-02 14:26] LABS: ALBUMIN 3.6 GM/DL (3.2-4.5); BILIRUBIN,TOTAL 0.2 MG/DL (0.1-1.0); CALCIUM 9.9 MG/DL (8.5-10.1); CREATININE SERUM 1.22 MG/DL (0.60-1.30); POTASSIUM 4.1 MMOL/L (3.6-5.0); TOTAL PROTEIN 6.3 GM/DL (6.4-8.2)
[2021-05-25 13:59] LABS: BASOPHILS % (AUTO) 0 % (0-10); EOSINOPHILS # (AUTO) 0.2 10^3/uL (0.0-0.3); EOSINOPHILS % (AUTO) 2 % (0-10); HEMATOCRIT 37 % (35-52); LYMPHOCYTES # (AUTO) 1.8 10^3/uL (1.0-4.0); LYMPHOCYTES % (AUTO) 26 % (12-44); MEAN CORPUSCULAR HEMOGLOBIN 31 pg (25-34); MEAN CORPUSCULAR HGB CONC 33 g/dL (32-36); MEAN CORPUSCULAR VOLUME 95 fL (80-99); MEAN PLATELET VOLUME 10.8 fL (9.0-12.2); MONOCYTES # (AUTO) 0.4 10^3/uL (0.0-1.0); MONOCYTES % (AUTO) 6 % (0-12); NEUTROPHILS # (AUTO) 4.6 10^3/uL (1.8-7.8); NEUTROPHILS % (AUTO) 66 % (42-75); PLATELET COUNT 151 10^3/uL (130-400)
[2021-05-25 14:21] LABS: ALBUMIN 3.8 GM/DL (3.2-4.5); BILIRUBIN,TOTAL 0.2 MG/DL (0.1-1.0); CALCIUM 9.7 MG/DL (8.5-10.1); CREATININE SERUM 1.16 MG/DL (0.60-1.30); POTASSIUM 4.1 MMOL/L (3.6-5.0); TOTAL PROTEIN 6.4 GM/DL (6.4-8.2)
== END 2021-05-31 | disposition home or self-care (01) ==
LOC: ONC 13:29
PROVIDERS: ATTEND Internal Medicine Hematology & Oncology
DX: C50.912 Malignant neoplasm of unspecified site of left female breast (principal); I11.9 Hypertensive heart disease without heart failure; E11.9 Type 2 diabetes mellitus without complications; I25.10 Atherosclerotic heart disease of native coronary artery without angina pectoris; E78.00 Pure hypercholesterolemia, unspecified; Z80.42 Family history of malignant neoplasm of prostate; Z80.3 Family history of malignant neoplasm of breast; Z90.12 Acquired absence of left breast and nipple; Z98.890 Other specified postprocedural states; Z90.49 Acquired absence of other specified parts of digestive tract; Z87.891 Personal history of nicotine dependence
CPT/HCPCS: 80053; 85025; G0463; 36591; 99213

== ENCOUNTER 2021-08-17 13:06 | Outpatient (RCR) | payer MEDICARE, MEDICAID ==
[~2021-08-17 13:06] MED LIST changes: -LISI-729 PO; +LISI5TAB20 PO
== END 2021-08-28 | disposition home or self-care (01) ==
LOC: ONC 13:06
PROVIDERS: ATTEND Internal Medicine Hematology & Oncology
DX: Z45.2 Encounter for adjustment and management of vascular access device (principal); C50.912 Malignant neoplasm of unspecified site of left female breast; I11.9 Hypertensive heart disease without heart failure; E11.9 Type 2 diabetes mellitus without complications; I25.10 Atherosclerotic heart disease of native coronary artery without angina pectoris; E78.00 Pure hypercholesterolemia, unspecified; Z80.42 Family history of malignant neoplasm of prostate; Z80.3 Family history of malignant neoplasm of breast; Z90.12 Acquired absence of left breast and nipple; Z98.890 Other specified postprocedural states; Z90.49 Acquired absence of other specified parts of digestive tract; Z87.891 Personal history of nicotine dependence
CPT/HCPCS: 36591

== ENCOUNTER 2021-11-09 12:54 | Outpatient (RCR) | payer MEDICARE, MEDICAID ==
[2021-11-09 13:29] LABS: BASOPHILS % (AUTO) 1 % (0-10); EOSINOPHILS # (AUTO) 0.1 10^3/uL (0.0-0.3); EOSINOPHILS % (AUTO) 1 % (0-10); HEMATOCRIT 38 % (35-52); HEMOGLOBIN 12.5 g/dL (11.5-16.0); LYMPHOCYTES # (AUTO) 1.6 10^3/uL (1.0-4.0); LYMPHOCYTES % (AUTO) 20 % (12-44); MEAN CORPUSCULAR HEMOGLOBIN 31 pg (25-34); MEAN CORPUSCULAR HGB CONC 33 g/dL (32-36); MEAN CORPUSCULAR VOLUME 93 fL (80-99); MEAN PLATELET VOLUME 11.5 fL (9.0-12.2); MONOCYTES # (AUTO) 0.4 10^3/uL (0.0-1.0); MONOCYTES % (AUTO) 5 % (0-12); NEUTROPHILS # (AUTO) 5.8 10^3/uL (1.8-7.8); NEUTROPHILS % (AUTO) 74 % (42-75); PLATELET COUNT 151 10^3/uL (130-400); WHITE BLOOD COUNT 7.8 10^3/uL (4.3-11.0)
[2021-11-09 13:44] LABS: ALBUMIN 3.7 GM/DL (3.2-4.5); BILIRUBIN,TOTAL 0.3 MG/DL (0.1-1.0); CALCIUM 9.5 MG/DL (8.5-10.1); CREATININE SERUM 1.25 MG/DL (0.60-1.30); POTASSIUM 4.4 MMOL/L (3.6-5.0); TOTAL PROTEIN 6.5 GM/DL (6.4-8.2)
== END 2021-11-25 | disposition home or self-care (01) ==
LOC: ONC 12:54
PROVIDERS: ATTEND Internal Medicine Hematology & Oncology
DX: C50.912 Malignant neoplasm of unspecified site of left female breast (principal); I11.9 Hypertensive heart disease without heart failure; E11.9 Type 2 diabetes mellitus without complications; I25.10 Atherosclerotic heart disease of native coronary artery without angina pectoris; E78.00 Pure hypercholesterolemia, unspecified; Z80.42 Family history of malignant neoplasm of prostate; Z80.3 Family history of malignant neoplasm of breast; Z90.12 Acquired absence of left breast and nipple; Z98.890 Other specified postprocedural states; Z90.49 Acquired absence of other specified parts of digestive tract; Z87.891 Personal history of nicotine dependence
CPT/HCPCS: 80053; 85025; G0463; 99213

== ENCOUNTER 2022-01-31 13:23 | Outpatient (RCR) | payer MEDICARE, MEDICAID | END 2022-02-25 | disposition home or self-care (01) | LOC: ONC 13:23 | PROVIDERS: ATTEND Internal Medicine Hematology & Oncology | DX: C50.912 Malignant neoplasm of unspecified site of left female breast (principal); I11.9 Hypertensive heart disease without heart failure; E11.9 Type 2 diabetes mellitus without complications; I25.10 Atherosclerotic heart disease of native coronary artery without angina pectoris; E78.00 Pure hypercholesterolemia, unspecified; Z80.42 Family history of malignant neoplasm of prostate; Z80.3 Family history of malignant neoplasm of breast; Z90.12 Acquired absence of left breast and nipple; Z98.890 Other specified postprocedural states; Z90.49 Acquired absence of other specified parts of digestive tract; Z87.891 Personal history of nicotine dependence ==

== ENCOUNTER → 2022-05-23 | Outpatient (CLI) | payer MEDICARE, MEDICAID ==
--- NOTE | 2022-05-23 12:34 | Diagnostic Imaging Report ---
INDICATION: Left breast carcinoma status post mastectomy. COMPARISON: 05/22/2021 and 05/16/2020. FINDINGS: Scattered fibroglandular densities in the right breast are noted. The parenchymal pattern is stable. There are scattered benign calcifications. No mass or malignant appearing microcalcifications are seen. The right axilla contains a chest wall port hub. IMPRESSION: No mammographic features suspicious for malignancy are identified. ACR BI-RADS Category 2: Benign findings. Result letter will be mailed to the patient. Note: At least 10% of breast cancer is not imaged by mammography. Dictated by: Dictated on workstation # [id number]
== END ==
LOC: RAD 11:55
PROVIDERS: ATTEND Internal Medicine Hematology & Oncology
DX: Z85.3 Personal history of malignant neoplasm of breast (principal); Z90.12 Acquired absence of left breast and nipple
CPT/HCPCS: 77065; G0279

== ENCOUNTER 2022-05-24 13:08 | Outpatient (RCR) | payer MEDICARE, MEDICAID ==
[2022-05-24 13:49] LABS: BASOPHILS % (AUTO) 0 % (0-10); EOSINOPHILS # (AUTO) 0.1 10^3/uL (0.0-0.3); EOSINOPHILS % (AUTO) 2 % (0-10); HEMATOCRIT 35 % (35-52); HEMOGLOBIN 11.5 g/dL (11.5-16.0); LYMPHOCYTES # (AUTO) 1.8 10^3/uL (1.0-4.0); LYMPHOCYTES % (AUTO) 26 % (12-44); MEAN CORPUSCULAR HEMOGLOBIN 30 pg (25-34); MEAN CORPUSCULAR HGB CONC 33 g/dL (32-36); MEAN CORPUSCULAR VOLUME 92 fL (80-99); MEAN PLATELET VOLUME 10.7 fL (9.0-12.2); MONOCYTES # (AUTO) 0.3 10^3/uL (0.0-1.0); MONOCYTES % (AUTO) 4 % (0-12); NEUTROPHILS # (AUTO) 4.6 10^3/uL (1.8-7.8); NEUTROPHILS % (AUTO) 67 % (42-75); PLATELET COUNT 132 10^3/uL (130-400)
[2022-05-24 14:21] LABS: ALBUMIN 3.1 GM/DL (3.2-4.5); BILIRUBIN,TOTAL 0.1 MG/DL (0.1-1.0); CALCIUM 8.6 MG/DL (8.5-10.1); CREATININE SERUM 1.1 MG/DL (0.60-1.30); POTASSIUM 4.2 MMOL/L (3.6-5.0); TOTAL PROTEIN 5.9 GM/DL (6.4-8.2)
== END 2022-05-28 | disposition home or self-care (01) ==
LOC: ONC 13:08
PROVIDERS: ATTEND Internal Medicine Hematology & Oncology
DX: Z45.2 Encounter for adjustment and management of vascular access device (principal); C50.912 Malignant neoplasm of unspecified site of left female breast; I11.9 Hypertensive heart disease without heart failure; E11.9 Type 2 diabetes mellitus without complications; I25.10 Atherosclerotic heart disease of native coronary artery without angina pectoris; E78.00 Pure hypercholesterolemia, unspecified; Z80.42 Family history of malignant neoplasm of prostate; Z80.3 Family history of malignant neoplasm of breast
CPT/HCPCS: 80053; 85025; G0463; 36591

== ENCOUNTER 2022-08-08 13:23 | Outpatient (RCR) | payer MEDICARE, MEDICAID | END 2022-08-28 | disposition home or self-care (01) | LOC: ONC 13:23 | PROVIDERS: ATTEND Internal Medicine Hematology & Oncology | DX: Z45.2 Encounter for adjustment and management of vascular access device (principal); C50.912 Malignant neoplasm of unspecified site of left female breast; I11.9 Hypertensive heart disease without heart failure; E11.9 Type 2 diabetes mellitus without complications; I25.10 Atherosclerotic heart disease of native coronary artery without angina pectoris; E78.00 Pure hypercholesterolemia, unspecified; Z80.42 Family history of malignant neoplasm of prostate; Z80.3 Family history of malignant neoplasm of breast | CPT/HCPCS: 96523 ==

== ENCOUNTER 2022-12-07 09:47 | Outpatient (RCR) | payer MEDICARE, MEDICAID ==
[2022-12-07 10:21] LABS: BASOPHILS % (AUTO) 0 % (0-10); EOSINOPHILS # (AUTO) 0.2 10^3/uL (0.0-0.3); EOSINOPHILS % (AUTO) 2 % (0-10); HEMATOCRIT 38 % (35-52); HEMOGLOBIN 12.6 g/dL (11.5-16.0); LYMPHOCYTES # (AUTO) 1.9 10^3/uL (1.0-4.0); LYMPHOCYTES % (AUTO) 24 % (12-44); MEAN CORPUSCULAR HEMOGLOBIN 31 pg (25-34); MEAN CORPUSCULAR HGB CONC 33 g/dL (32-36); MEAN CORPUSCULAR VOLUME 93 fL (80-99); MONOCYTES # (AUTO) 0.5 10^3/uL (0.0-1.0); MONOCYTES % (AUTO) 6 % (0-12); NEUTROPHILS # (AUTO) 5.2 10^3/uL (1.8-7.8); NEUTROPHILS % (AUTO) 66 % (42-75); PLATELET COUNT 143 10^3/uL (130-400); WHITE BLOOD COUNT 7.8 10^3/uL (4.3-11.0)
[2022-12-07 10:39] LABS: ALBUMIN 3.7 GM/DL (3.2-4.5); BILIRUBIN,TOTAL 0.2 MG/DL (0.1-1.0); CALCIUM 9.4 MG/DL (8.5-10.1); CREATININE SERUM 1.2 MG/DL (0.60-1.30); POTASSIUM 4.3 MMOL/L (3.6-5.0); TOTAL PROTEIN 6.5 GM/DL (6.4-8.2)
== END 2022-12-26 | disposition home or self-care (01) ==
LOC: ONC 09:47
PROVIDERS: ATTEND Internal Medicine Hematology & Oncology
DX: Z45.2 Encounter for adjustment and management of vascular access device (principal); C50.912 Malignant neoplasm of unspecified site of left female breast; I10 Essential (primary) hypertension; E11.9 Type 2 diabetes mellitus without complications; E78.00 Pure hypercholesterolemia, unspecified; Z80.42 Family history of malignant neoplasm of prostate; Z80.3 Family history of malignant neoplasm of breast
CPT/HCPCS: 36415; 36591; 80053; 85025

== ENCOUNTER 2023-03-01 10:55 | Outpatient (RCR) | payer MEDICARE, MEDICAID | END 2023-03-28 | disposition home or self-care (01) | LOC: ONC 10:55 | PROVIDERS: ATTEND Internal Medicine Hematology & Oncology | DX: Z45.2 Encounter for adjustment and management of vascular access device (principal); C50.912 Malignant neoplasm of unspecified site of left female breast; I10 Essential (primary) hypertension; E11.9 Type 2 diabetes mellitus without complications; E78.00 Pure hypercholesterolemia, unspecified; Z80.42 Family history of malignant neoplasm of prostate; Z80.3 Family history of malignant neoplasm of breast | CPT/HCPCS: 96523 ==

== ENCOUNTER → 2023-04-26 | Outpatient (CLI) | payer MEDICARE, MEDICAID | LOC: CANPRECLI → CARD 10:58 | PROVIDERS: ATTEND Nurse Practitioner Family | DX: I25.5 Ischemic cardiomyopathy (principal); I51.7 Cardiomegaly | CPT/HCPCS: 93320 ==

== ENCOUNTER → 2023-06-04 | Outpatient (CLI) | payer MEDICARE, MEDICAID ==
[~2023-06-04] MED LIST changes: +REGADENOSON 0.4 MG/5 ML SYR IV ONE
[2023-06-04] MEDS: CATHETER FLUSH 10 ML SYR IVP PRN ×2 (07:24→09:14)
[2023-06-04 09:17] VITALS: BP 125/73
--- NOTE | 2023-06-05 13:15 | STRESS TEST ---
DATE OF SERVICE: 06/04/2023 RESTING AND POST REGADENOSON TECHNETIUM-99M TETROFOSMIN SPECT CT IMAGING ORDERING PHYSICIAN: Pauline Garcia APRN. CLINICAL DIAGNOSIS: Coronary artery disease. Baseline images were carried out after injection of 10.97 mCi technetium-99m tetrofosmin. This was followed by 0.4 mg regadenoson and 32.4 mCi of technetium-99m tetrofosmin for stress imaging. Electrocardiogram showed sinus rhythm at baseline. It did not change significantly with regadenoson infusion. Review of images at rest and following stress indicates a predominantly fixed inferoseptal perfusion defect. Gated images show inferoseptal hypokinesis. Left ventricular ejection fraction is calculated to be 54%. CONCLUSIONS: The study is indicative of relatively small inferoseptal myocardial infarction with inferoseptal hypokinesis and left ventricular ejection fraction of 54%. There does not appear to be significant ischemia. Job ID: [id number] DocumentID: [id number] Dictated Date: 06/05/2023 09:55:28 Welt Rander Date: 06/05/2023 13:14:00 Dictated By: EMMANUEL MACHADO MD; JOSEY; FACP; FACC; MANINDER
== END ==
LOC: CARD 07:03
PROVIDERS: ATTEND Nurse Practitioner Family
DX: I21.29 ST elevation (STEMI) myocardial infarction involving other sites (principal)
CPT/HCPCS: 78452; 93017; A9502

== ENCOUNTER 2023-06-14 10:51 | Outpatient (RCR) | payer MEDICARE, MEDICAID ==
[~2023-06-14 10:51] MED LIST changes: -REGADENOSON 0.4 MG/5 ML SYR IV ONE
[2023-06-14 11:41] LABS: BASOPHILS # (AUTO) 0.1 10^3/uL (0.0-0.1); BASOPHILS % (AUTO) 1 % (0-10); EOSINOPHILS # (AUTO) 0.1 10^3/uL (0.0-0.3); EOSINOPHILS % (AUTO) 1 % (0-10); HEMATOCRIT 39 % (35-52); HEMOGLOBIN 12.6 g/dL (11.5-16.0); LYMPHOCYTES # (AUTO) 2.3 10^3/uL (1.0-4.0); LYMPHOCYTES % (AUTO) 26 % (12-44); MEAN CORPUSCULAR HEMOGLOBIN 31 pg (25-34); MEAN CORPUSCULAR HGB CONC 33 g/dL (32-36); MEAN CORPUSCULAR VOLUME 94 fL (80-99); MONOCYTES # (AUTO) 0.4 10^3/uL (0.0-1.0); MONOCYTES % (AUTO) 5 % (0-12); NEUTROPHILS # (AUTO) 6.1 10^3/uL (1.8-7.8); NEUTROPHILS % (AUTO) 67 % (42-75); PLATELET COUNT 141 10^3/uL (130-400)
[2023-06-14 12:01] LABS: ALBUMIN 3.9 GM/DL (3.2-4.5); BILIRUBIN,TOTAL 0.3 MG/DL (0.1-1.0); CALCIUM 9.8 MG/DL (8.5-10.1); CREATININE SERUM 1.21 MG/DL (0.60-1.30); POTASSIUM 4.5 MMOL/L (3.6-5.0); TOTAL PROTEIN 6.7 GM/DL (6.4-8.2)
== END 2023-06-27 | disposition home or self-care (01) ==
LOC: ONC 10:51
PROVIDERS: ATTEND Internal Medicine Hematology & Oncology
DX: C50.912 Malignant neoplasm of unspecified site of left female breast (principal); I10 Essential (primary) hypertension; E11.9 Type 2 diabetes mellitus without complications; E78.00 Pure hypercholesterolemia, unspecified; E78.5 Hyperlipidemia, unspecified
CPT/HCPCS: 80053; 85025